=== PATIENT | female | born 1950 | race Caucasian/White ===

== ENCOUNTER → 2019-02-12 11:31 | Day surgery (SDC) | payer MEDICARE, MEDICAID, SELFPAY ==
[2019-02-11 16:48] VITALS: BMI 42.3
--- NOTE | 2019-02-12 | ECHO_ITS ---
Patient Info Name: Jaimie Nix Age: 68 years : 1950 Gender: Female Ht: 67 in Wt: 266 lbs BSA: 2.45 m2 HR: 71 bpm BP: 96 / 61 mmHg Technical Quality: Good Exam Date: 02/12/2019 7:23 AM Exam Location: [facility] Pulmonary Patient Status: Outpatient Admit Date: 02/12/2019 Staff Ordering Physician: Krystal Aden MD Clerical And Office Support Workers: Cy Scott, NELSON, RT Attending Provider: Krystal Aden MD Referring Physician: Keiko GIRON; Exam Type: CA echo doppler color flow Study Info Indications C79.89 - Secondary malignant neoplasm of other specified sites Complete two-dimensional, color flow and Doppler transthoracic echocardiogram is performed. Summary 1. Left ventricular chamber dimension is normal. 2. Left ventricular systolic function is normal, estimated at 65-70%. 3. There is moderately increased left ventricular wall thickness. 4. The left ventricular diastolic function is grade I diastolic dysfunction. 5. E/e' 9 is minimally elevated. 6. Global longitudinal strain is abnormal at -12.9%. 7. There is mild aortic valve sclerosis. 8. There is trace tricuspid valve regurgitation. Left Ventricle E/e' 9 is minimally elevated. Global longitudinal strain is abnormal at -12.9%. Left ventricular chamber dimension is normal. Left ventricular systolic function is normal, estimated at 65-70%. There is moderately increased left ventricular wall thickness. The left ventricular diastolic function is grade I diastolic dysfunction. Right Ventricle Right ventricular chamber dimension is normal. Right ventricular systolic function is normal. Left Atria Left atrial chamber dimension is normal. Right Atria Right atrial chamber dimension is normal. Aortic Valve The aortic valve is trileaflet. There is mild aortic valve sclerosis. There is no aortic valve stenosis. There is no aortic valve regurgitation. Pulmonic Valve There is no pulmonic regurgitation. Mitral Valve There is no mitral valve stenosis. There is no mitral valve regurgitation. Tricuspid Valve There is trace tricuspid valve regurgitation. RVSP is not calculated due to an inadequate TR jet. Pericardium/Pleural There is no pericardial effusion. Inferior Vena Cava Normal inferior vena cava with >50% collapse upon inspiration consistent with normal right atrial pressure, 5 mmHg. Aorta The aortic root size at the sinus of Valsalva is normal. Left Ventricular Outflow Tract Name Value Normal LVOT 2D LVOT Diameter 2.0 cm LVOT Doppler LVOT Peak Gradient 7 mmHg LVOT Mean Gradient 3 mmHg LVOT VTI 24 cm LVOT VTI/AV VTI Ratio 0.7 LVOT Stroke Volume 75 ml LVOT CO 5.9 l/min LVOT CI 2.4 l/min/m2 Pulmonic Valve Name Value Normal
--- NOTE | ~2019-02-12 | XR_ITS ---
EXAMINATION: BONE SURVEY/METASTATIC SURVEY DATE: 02/12/2019 INDICATION: Free monoclonal-like change TECHNIQUE: A skeletal survey was performed including AP views of the chest, abdomen and pelvis; AP an d lateral/lateral swimmers views of the cervical, thoracic and lumbar spine; lateral view of the skul l, and AP and lateral views of the appendicular skeleton excluding the hands and feet. COMPARISON: None. FINDINGS: No suspicious lytic or blastic bone lesions in the axial or appendicular skeleton. Scattered degenera tive skeletal changes including mild to moderate cervical and thoracic and severe lumbar spondylosis. Grade 1 anterolisthesis L3 on L4. L5 laminectomy and partial L4 laminectomy with bone graft material projecting over the bilateral posterior lateral views of the lower lumbar spine. Polyarticular osteo arthritis most prominent at the bilateral shoulders and radial aspect of the carpi. Bilateral total k nee arthroplasties with patellar resurfacing. Sacral nerve root stimulator with power supply projecti ng over the right buttock and lead extending the left S3 neural foramen. Cholecystectomy clips in rig ht upper quadrant and likely dropped clip in the pelvis. Visualized portions of the lungs are clear w ith no focal airspace opacities, pulmonary edema, pleural effusion or pneumothorax. No dilated bowel to suggest obstruction. IMPRESSION: 1. No suspicious lytic or blastic bone lesions identified. 2. Destructive and degenerative skeletal changes as detailed above. Reviewed, dictated and finalized at location A. S AND PARKING LOTS SWEEPER OPERATOR
--- NOTE | ~2019-02-12 | BM_ITS ---
EXAMINATION: CCL bone marrow asp w bx diag DATE: 02/12/2019 10:20 INDICATION: Abnormal labs with elevated free monoclonal light chain TECHNIQUE: A time-out was performed to verify the patient's name, date of , and procedure to b e performed. The procedure including the risks, benefits, and alternatives was discussed with the pat ient. Risks discussed included bleeding and infection. The patient understood the risks and agreed to proceed. The skin overlying the left posterior iliac spine was prepped and draped in usual sterile f ashion. Anesthetic was administered with 1% lidocaine subcutaneously. Systemic analgesia was provided with 50 mcg fentanyl IV. An 11 gauge needle was inserted into the ilium with fluoroscopic guidance. Bone marrow was aspirated. An 8 gauge needle was then inserted into the ilium with fluoroscopic harmony nce. A core bone marrow biopsy was obtained. There were no immediate complications. Fluoroscopy expos ure time was 0.1 minutes. The total number of images was 36. FINDINGS: Real-time fluoroscopy demonstrates a marker overlying the left posterior iliac spine. IMPRESSION: 1. Successful fluoro-guided bone marrow aspiration. 2. Successful fluoro-guided bone marrow core biopsy. Reviewed, dictated and finalized at location A. ACY SPECIALIST
--- NOTE | 2019-02-12 08:06 | SUR.PREOP ---
ARRIVES TO [facility] 3 VIA WC FROM CARDIOLOGY DEPARTMENT S/P ECHOCARDIOGRAM FOR SCHEDULED BONE MARROW BIOPSY AND ASPIRATION W/ DR. OLIVAS. HAS SEVERAL TESTS SCHEDULED FOR TODAY. A&OX3, DENIES CP OR SOB. ASSISTED TO BED. ORIENTED TO ROOM, ORDERS, PLAN OF CARE, PROCEDURE. IV STARTED. LABS SENT, VS OBTAINED, CONSENT SIGNED. JUDSON BARKER, AT SIDE. WILL MONITOR.
[2019-02-12 08:10] VITALS: BP 135/55; RESP 16; TEMP 36.9; O2SAT 96
[2019-02-12 08:36] LABS: Hematocrit 32.8 % (37.0-47.0); Hemoglobin 10.2 g/dL (12.0-15.0); Mean Corpuscular HGB Conc 31.1 g/dl (32-36); Mean Corpuscular Volume 86.8 fl (80-100); Mean Platelet Volume 8.9 fl (7.4-10.4); Platelet Count Result 384 k/mm3 (150-375); Red Blood Count 3.78 M/mm3 (4.2-5.4); Red Cell Distribution Width 13.7 % (11.5-14.5); White Blood Count 8.8 K/mm3 (4.5-10.0)
[2019-02-12 08:46] LABS: INR 0.9; Prothrombin Time 11.8 Seconds (11.1-14.7)
--- NOTE | 2019-02-12 10:17 | SUR.PHASEII ---
RETURNS FROM BONE MARROW BIOPSY IN OUTGOING INSPECTOR W/ DR. OLIVAS VIA STRETCHER TO [facility] 3. BEGIN PHASE II RECOVERY . ARRIVES ON BACK WITH PRESSURE DRESSING TO L. UPPER POSTERIOR HIP PUNCTURE SITE. SITE SOFT, NONTENDER, NO BLEEDING OR HEMATOMA NOTED TO SITE. VSS. REVIEWED WOUND CARE AND DRESSING CHANGE ORDERS W/ PT AND NIECE. VOICED UNDERSTANDING.
[2019-02-12 10:20] VITALS: BP 124/51; PULSE 67; RESP 16; TEMP 36.8; O2SAT 99
[2019-02-12 10:35] VITALS: BP 113/46; PULSE 65; RESP 16; O2SAT 98
[2019-02-12 10:50] VITALS: BP 128/46; PULSE 69; RESP 16; O2SAT 95
[2019-02-12 11:05] VITALS: BP 119/47; PULSE 67; RESP 16; O2SAT 95
--- NOTE | 2019-02-12 11:20 | SUR.PHASEII ---
HAS BEEN ON BEDREST W/ PRESSURE DRESSING TO BIOPSY SITE L. UPPER POSTERIOR HIP, LYING ON BACK, VSS X 1 HOUR. NO BLEEDING OR HEMATOMA NOTED TO SITE. REVIEWED DISCHARGE INSTRUCTIONS POST BONE MARROW BX AND SITE CARE W/ PT AND NIECE. BOTH VOICE UNDERSTANDING. CALLED RADIOLOGY RE: NEXT ORDER FOR XR BONE SURVEY.
--- NOTE | 2019-02-12 11:45 | SUR.PHASEII ---
DOWN VIA WC TO RADIOLOGY FOR XR BONE SURVEY. VOICES NO C/O. BIOPSY SITE L. UPPER POSTERIOR HIP CLEAR.
--- NOTE | 2019-02-12 12:15 | SUR.PHASEII ---
RETURNS FROM RADIOLOGY TO [facility] 3 VIA . NO NEW CHANGES.
--- NOTE | 2019-02-12 12:25 | SUR.PHASEII ---
DENIES PAIN AT THIS TIME. PRESSURE DRESSING TO L. UPPER OUTER HIP C/D/I. SITE SOFT, NO HEMATOMA NOTED. DRESSED FOR DISCHARGE HOME. STEADY GAIT. VOIDING WITHOUT DIFFICULTY. TAKING PO FLUIDS WELL. VOICES UNDERSTANDING OF DISCHARGE INSTRUCTIONS. DISCHARGED HOME, OUT VIA WC W/ ALL PERSONAL BELONGINGS AND DISCHARGE INSTRUCTIONS TO [facility]S WAITING [facility]. NO DISTRESS NOTED.
[2019-02-15 21:02] LABS: Albumin 24 Hr Urine 28 %; Total Protein/Creatinine Ratio 409 mg/g creat (<115)
== END ==
LOC: ANHCARD 07:01 → ANHCATHLAB 07:02 → ANHCARD 05-25 11:30 → ANHCATHLAB 08-05 14:48
PROVIDERS: Radiology Diagnostic Radiology; PCP Internal Medicine; Visit Provider Internal Medicine Hematology & Oncology
DX: M89.8X8 Other specified disorders of bone, other site (principal); I35.8 Other nonrheumatic aortic valve disorders; I50.30 Unspecified diastolic (congestive) heart failure
CPT/HCPCS: 36415; 38222; 77075; 81050; 82570; 84156; 84166; 85027; 85610; 88184; 88185; 88305; 88311; 88313; 88342; 88360; 88364; 88365; 93306; J3010

== ENCOUNTER 2019-03-25 13:56 | Outpatient (CLI) | payer MEDICARE, MEDICAID, SELFPAY ==
[2019-03-25 14:46] LABS: Basophils Percent Auto 0.2 % (0.2-1.2); Eosinophils Absolute Auto 0.1 K/mm3 (0-0.3); Eosinophils Percent Auto 1.7 % (0-4.4); Hematocrit 31.1 % (37.0-47.0); Hemoglobin 9.6 g/dL (12.0-15.0); Immature Granulocyte Absolute 0.06 K/mm3 (0.00-0.031); Lymphocytes Absolute Auto 1.05 K/mm3 (0.9-3.2); Lymphocytes Percent Auto 17.9 % (18.3-44.2); Mean Corpuscular HGB Conc 30.9 g/dl (32-36); Mean Corpuscular Hemoglobin 25.9 pg (26-34); Mean Corpuscular Volume 84.1 fl (80-100); Mean Platelet Volume 8.8 fl (7.4-10.4); Monocytes Absolute Auto 0.3 K/mm3 (0.1-0.6); Monocytes Percent Auto 4.3 % (2.6-8.5); Neutrophils Absolute Auto 4.4 K/mm3 (1.3-6.7); Neutrophils Percent Auto 74.9 % (45.5-73.1); Platelet Count Result 371 k/mm3 (150-375); Red Cell Distribution Width 13.3 % (11.5-14.5); White Blood Count 5.9 K/mm3 (4.5-10.0)
[2019-03-25 14:58] LABS: Alanine Aminotransferase 19 U/L (4-35); Albumin Level 4.1 g/dL (3.5-5.1); Alkaline Phosphatase 74 U/L (38-126); Aspartate Amino Transferase 17 U/L (14-36); Bilirubin,Total 0.4 mg/dL (0.2-1.3); Blood Urea Nitrogen 23 mg/dL (7-17); Calcium 9.8 mg/dL (8.4-10.2); Carbon Dioxide 25 mmol/L (22-30); Chloride 97 mmol/L (98-107); Estimated Glomerular Filt Rate 37; Glucose 204 mg/dL (65-105); Potassium 4.6 mmol/L (3.4-5.0); Sodium 140 mmol/L (137-145)
[2019-03-25 15:05] LABS: Immunoglobulin A 44 mg/dL (70-400); Immunoglobulin G 437 mg/dL (700-1600)
[2019-03-25 15:09] LABS: Immunoglobulin M < 25 mg/dL (40-230)
[2019-03-29 05:26] LABS: Albumin 3.7 g/dL (3.8-4.8); Alpha 1 Globulin 0.3 g/dL (0.2-0.3); Alpha 2 Globulin 0.8 g/dL (0.5-0.9); Beta 1 Globulin 0.6 g/dL (0.4-0.6); Gamma Globulin 0.4 g/dL (0.8-1.7); Interpretation Consistent with; Protein, Total 6.1 g/dL (6.1-8.1)
[2019-03-30 00:01] LABS: Kappa\\Lambda Light Chains 0.01 (0.26-1.65); Lambda Light Chain 1066.8 mg/L (5.7-26.3)
== END 2019-03-25 13:57 | disposition home or self-care (01) ==
PROVIDERS: PCP Internal Medicine; Visit Provider Internal Medicine Hematology & Oncology
DX: C90.00 Multiple myeloma not having achieved remission (principal)
CPT/HCPCS: 36415; 80053; 82784; 83883; 84155; 84165; 85025; 86334

== ENCOUNTER 2019-12-08 21:18 | Observation (INO) | payer MEDICARE, MEDICAID, SELFPAY ==
--- NOTE | ~2019-12-08 | CT_ITS ---
EXAMINATION: CT BRAIN W/O DATE: 12/08/2019 21:55 INDICATION: Weakness TECHNIQUE: Computed tomography (CT) of the head was performed without intravenous contrast. The dose- length product was 681.00 mGy-cm. The mA was adjusted according to patient size. Iterative reconstruc tion technique was employed. COMPARISON: No prior studies for comparison. FINDINGS: Normal brain parenchymal volume for age. Normal snell-white differentiation. No acute intrac ranial hemorrhage, infarction, mass or mass effect. There are scattered mild periventricular and subc ortical white matter changes, most likely related to small vessel ischemic disease (microangiopathy). No ventriculomegaly or midline shift. Midline sagittal images demonstrate a normal corpus callosum, c raniovertebral junction and sella turcica. Basilar cisterns are patent. Paranasal sinuses and mastoids are pneumatized. No depressed skull fractures. IMPRESSION: 1. No acute intracranial abnormality. Reviewed, dictated and finalized at location A.
--- NOTE | ~2019-12-08 | XR_ITS ---
EXAMINATION: XR chest 1V portable DATE: 12/10/2019 13:27 INDICATION: Chest pain and nausea TECHNIQUE: frontal view of the chest was obtained. COMPARISON: Chest radiograph dated 12/08/2019 FINDINGS: The lungs remain clear with no focal airspace opacities, pulmonary edema, pleural effusion or pneumot horax. The cardiomediastinal silhouette is normal. Moderate degenerative skeletal changes in the spin e and bilateral shoulders. IMPRESSION: 1. No acute cardiopulmonary disease. Reviewed, dictated and finalized at location B.
--- NOTE | ~2019-12-08 | CT_ITS ---
EXAMINATION: CT abdomen pelvis wo con DATE: 12/08/2019 23:40 INDICATION: Left flank pain and weakness TECHNIQUE: Computed tomography (CT) of the abdomen and pelvis was performed without intravenous contr ast. The dose-length product was 1490.05 mGy-cm. Automated exposure control and iterative reconstruct ion technique were employed. COMPARISON: 03/04/2019 FINDINGS: There is dependent atelectasis. Cardiomegaly. No significant pleural or pericardial effusio n. There are cholecystectomy clips. Calcified upper abdominal lymph node consistent with chronic granulo matous disease. The liver, spleen, pancreas, adrenal glands and kidneys are unremarkable. No renal/ur eteral stones. Small fat-containing umbilical hernia. No abnormal pelvic masses or fluid collections. Normal appendix. No evidence for diverticulitis. There is neural stimulator lead in the left pelvis with generator in the right gluteal soft tissues. Moderate-severe lumbar spondylosis. No free air or free fluid. No significant vascular abnormality. No lymphadenopathy. Small fat-containing umbilical h ernia. IMPRESSION: 1. No acute abdominal abnormality. Reviewed, dictated and finalized at location A.
--- NOTE | ~2019-12-08 | US_ITS ---
EXAMINATION: US renal BI DATE: 12/09/2019 13:57 INDICATION: Left flank pain. TECHNIQUE: Multiple ultrasound grayscale images of the kidneys were obtained. COMPARISON: CT abdomen and pelvis 12/08/2019 FINDINGS: The right kidney measures 11.9 x 5.8 x 5.5 cm. The left kidney measures 10.5 x 5.3 x 5.4 cm. The kidn eys demonstrate normal parenchymal echogenicity. There is no hydronephrosis. The bladder is normal. IMPRESSION: 1. Normal kidneys. No hydronephrosis. Reviewed, dictated and finalized at location A.
--- NOTE | ~2019-12-08 | XR_ITS ---
EXAMINATION: XR chest 2V 12/08/2019 22:04 INDICATION: Weakness. Dyspnea. PROCEDURE: 2 view chest COMPARISON: 07/03/2013 FINDINGS: The lungs are clear. The cardiomediastinal silhouette is within normal limits. There are no pleural effusions. There is no pneumothorax suspected. IMPRESSION: 1: NO ACUTE CARDIOPULMONARY DISEASE. Reviewed, dictated and finalized at location A.
[2019-12-08 21:21] VITALS: BP 142/90; PULSE 56; RESP 20; TEMP 36.3; O2SAT 100
--- NOTE | 2019-12-08 21:24 | ED.WEAKNESS ---
HPI - Weakness General Chief complaint: Weakness Stated complaint: n/v/ post chemo Time Seen by Provider: 12/08/19 21:24 Source: patient Mode of arrival: ambulatory Limitations: no limitations History of Present Illness HPI Narrative: Patient is a 69-year-old female with a history of multiple myeloma, anemia of chronic disease, hypertension, type 2 diabetes, who presents for evaluation of weakness. Patient states that she has been incredibly weak since Friday when she finished her last dose of chemotherapy for the multiple myeloma. Patient has been following with Dr. Finch. Patient reports mostly weakness in her lower extremities. She reports nausea without vomiting and decreased oral intake. Patient reports some left flank pain that radiates to her left buttocks. She denies any chest pain, cough or fever. No shortness of breath. Patient states that she lives at home, has been worried about her strength and lack of ability to walk on her own without falling. Patient states that she was hospitalized at [facility] Friday through today, and was discharged several hours ago. She states that she did not feel well enough to be discharged, when she spoke with Dr. Finch, he prompted her to come to our emergency department. Of note, patient states she received fluids, IV antibiotics and 2 blood transfusions while at [place]. Related Data Home Medications Medication Instructions Recorded Confirmed aspirin 325 mg PO DAILY 02/12/19 11/23/19 carvedilol [Coreg] 12.5 mg PO Q12H 02/12/19 11/23/19 cetirizine [Zyrtec] 10 mg PO DAILY 02/12/19 11/23/19 cholecalciferol (vitamin D3) 50,000 unit PO WEEKLY 02/12/19 11/23/19 cyanocobalamin (vitamin B-12) 1,000 mcg SUBCUT MONTHLY 02/12/19 11/23/19 diltiazem HCl 120 mg PO Q12H 02/12/19 11/23/19 folic acid 1 mg PO DAILY 02/12/19 11/23/19 furosemide 40 mg PO DAILY 02/12/19 11/23/19 gabapentin 300 mg PO TID 02/12/19 11/23/19 insulin degludec [Tresiba U-100 68 unit SUBCUT HS 02/12/19 11/23/19 Insulin] isosorbide mononitrate 30 mg PO DAILY 02/12/19 11/23/19 losartan 50 mg PO DAILY 02/12/19 11/23/19 magnesium oxide 400 mg PO BID 02/12/19 11/23/19 montelukast [Singulair] 10 mg PO QPM 02/12/19 11/23/19 oxybutynin chloride 10 mg PO DAILY 02/12/19 11/23/19 pantoprazole 40 mg PO QAM 02/12/19 11/23/19 pregabalin [Lyrica] 25 mg PO HS 02/12/19 11/23/19 sucralfate 1 g PO QID 02/12/19 11/23/19 ferrous sulfate 325 mg PO BID 08/03/19 11/23/19 primidone 100 mg PO HS 08/17/19 11/23/19 lenalidomide [Revlimid] 15 mg PO DAILY 11/23/19 11/23/19 Allergies Allergy/AdvReac Type Severity Reaction Status Date / Time celecoxib Allergy Intermediate TACHYCARDIA Verified 10/12/19 14:20 aspirin Allergy Unknown Verified 10/12/19 14:20 ibuprofen Allergy Unknown Verified 10/12/19 14:20 iodine Allergy Unknown Verified 10/12/19 14:20 midazolam Allergy Unknown Verified 10/12/19 14:20 Penicillins Allergy Unknown Verified 10/12/19 14:20 Contrast Media Allergy Intermediate Hives / Uncoded 10/12/19 14:20 Red Face MIDAZOLAM HCL Allergy Unknown AMNESIA Uncoded 10/12/19 14:20 AFTER SURGERY Review of Systems Review of Systems: Narrative: CONSTITUTIONAL: Denies fever, chills, or sweats. EYES: Denies visual changes ENT: Denies rhinorrhea, congestion, sore throat, or otalgia. CARDIOVASCULAR: Denies chest pain, palpitations, or edema. RESPIRATORY: Denies cough or dyspnea. GASTROINTESTINAL: Denies abdominal pain, reports nausea GENITOURINARY: Denies dysuria or hematuria. SKIN: Denies rash or itching. MUSCULOSKELETAL: Denies back pain, joint pain, or myalgia. NEUROLOGIC: Denies headache, numbness, reports lower extremity weakness PMFSH Past Medical History Medical History (Updated 12/08/19 @ 22:56 by Inge Brand MD) Anemia Diabetes Light chain myeloma Family History Family History (Updated 05/17/16 @ 23:56 by DOCTOR UNKNOWN) Mother Hypertension, Onset Age: 86 Family history of elevated
--- NOTE | 2019-12-08 21:25 | ECG_ITS ---
Measurements Intervals [facility] Rate: 56 P: 41 MN: 150 QRS: -67 QRSD: 150 T: 24 QT: 461 QTc: 448 Interpretive Statements SINUS BRADYCARDIA RIGHT BUNDLE BRANCH BLOCK LEFT ANTERIOR FASCICULAR BLOCK BASELINE ARTIFACT- I, II, III, AVR, AVL, AVF, V4-V6 ABNORMAL ECG Electronically Signed On 12-09-2019 7:06:59 CDT by Carlos Bolden D.O.
[2019-12-08 22:37] LABS: Basophils Percent Auto 0.3 % (0.2-1.2); Eosinophils Absolute Auto 0.4 K/mm3 (0-0.3); Eosinophils Percent Auto 13.6 % (0-4.4); Hemoglobin 9.3 g/dL (12.0-15.0); Immature Granulocyte Absolute 0.01 K/mm3 (0.00-0.031); Immature Granulocyte Percent A 0.3 % (0-0.5); Lymphocytes Absolute Auto 0.72 K/mm3 (0.9-3.2); Lymphocytes Percent Auto 24.5 % (18.3-44.2); Mean Corpuscular Hemoglobin 26.5 pg (26-34); Mean Corpuscular Volume 85.5 fl (80-100); Mean Platelet Volume 11.7 fl (7.4-10.4); Monocytes Absolute Auto 0.2 K/mm3 (0.1-0.6); Monocytes Percent Auto 5.1 % (2.6-8.5); Neutrophils Absolute Auto 1.7 K/mm3 (1.3-6.7); Neutrophils Percent Auto 56.2 % (45.5-73.1); Platelet Count Result 125 k/mm3 (150-375); Red Blood Count 3.51 M/mm3 (4.2-5.4); Red Cell Distribution Width 15.1 % (11.5-14.5); White Blood Count 2.9 K/mm3 (4.5-10.0)
[2019-12-08 22:46] LABS: INR 1.1; Prothrombin Time 14.1 Seconds (11.1-14.7)
[2019-12-08 22:47] LABS: Partial Thromboplastin Time 31.3 SECONDS (22.3-36.8)
[2019-12-08 22:48] LABS: Alanine Aminotransferase 10 U/L (4-35); Albumin Level 3.4 g/dL (3.5-5.1); Alkaline Phosphatase 93 U/L (38-126); Anion Gap 7 mmol/L (8-16); Aspartate Amino Transferase 12 U/L (14-36); Bilirubin,Total 0.6 mg/dL (0.2-1.3); Blood Urea Nitrogen 26 mg/dL (7-17); Calcium 9.2 mg/dL (8.4-10.2); Carbon Dioxide 26 mmol/L (22-30); Chloride 103 mmol/L (98-107); Estimated CRCL calculation 45 ml/min; Estimated Glomerular Filt Rate 37; Glucose 146 mg/dL (65-105); Potassium 4.1 mmol/L (3.4-5.0); Sodium 136 mmol/L (137-145)
[2019-12-08 22:49] LABS: Lactic Acid Reflex 0.7 mmol/L (0.7-2.1)
[2019-12-08] MEDS: ONDANSETRON INJ 4 MG/2 ML VIAL IV PUSH (22:59)
[2019-12-08 23:00] LABS: Troponin I 0.016 ng/mL (0.000-0.034)
[2019-12-08] MEDS: MORPHINE SULFATE (*CRX) 4 MG/ML INJ IV PUSH (23:01)
[2019-12-08] MEDS: SODIUM CHLORIDE 0.9% IV 1,000 ML 999 ML IV CONT (23:05)
[2019-12-09] VITALS (11 sets, daily range): BP systolic 130–149; BP diastolic 46–70; PULSE 50–61; RESP 18–22; TEMP 36.1–36.4; O2SAT 95–99; BMI 42.7
[2019-12-09 00:26] LABS: Add Urine Microscopic? YES; Appearance Urine Clear (Clear); Bacteria Urine Trace /hpf; Bilirubin Urine Negative (Negative); Blood Urine 1+ (Negative); Color Urine Straw (Yellow); Glucose Urine UA Negative (Negative); Ketones Urine Negative (Negative); Leukocyte Esterase Ur Trace LEU/UL (Negative); Nitrate Urine Negative (Negative); Protein Urine Negative (Negative); RBC Urine 0-2 /hpf (0-2); Specific Grav Ur 1.009 (1.001-1.035); Squamous Epithelial Cell Urine Few /hpf (Few); Urobilinogen Urine Negative mg/dL (<2.0)
--- NOTE | 2019-12-09 01:15 | PM.IMHP ---
H&P: HPI History of Present Illness Date/Time: 12/09/19 01:15 Chief complaint: Weakness, dehydration Narrative: This is a 69 year old Diabetic female with known history of multiple myeloma and HTN who was just discharged from [facility] a few hours ago after she was treated for colitis and presented to our hospital with a complaint of generalized weakness. The patient has had increased nausea, vomiting, and generalized weakness since her last round of chemotherapy last week. She has also had diarrhea. She denies any fever, chills, chest pain, cough, shortness of breath, or dysuria. While at [facility] she was treated with antibiotics and today she verbalized that she felt too weak to be discharged as she is known to live alone but she was discharged home anyway. She received 2 blood transfusions at [facility]. She called her Oncologist, Dr. Finch who told her to come to the hospital for evaluation. She was found to be mildly dehydrated tonight in the ER. Routine labs appear to be improved from when she was at [facility]. Repeat CT abd/pelvis was unremarkable. On my encounter with the patient she is still complaining of nausea and ongoing LLQ abdominal pain which she has had for the past 5 days. The patient verbalized that she does not think she can care for herself at home. No other complaints tonight. Review of Systems Review of Systems: All systems reviewed & are unremarkable except as noted in HPI and below PMFSH Past Medical History Medical History Anemia Diabetes Light chain myeloma Family History Family History Mother Hypertension, Onset Age: 86 Family history of elevated blood lipids, Onset Age: 86 Patient's mother is Grandparent Cerebrovascular accident, Onset Age: 76 Diabetes mellitus, Onset Age: 84 Father Family history of coronary artery disease, Onset Age: 49 Patient's father is Social History Social History Smoking status: Never smoker Alcohol intake: never Substance use: never Gender identity (if verbalized by the patient): Female Spiritual care concerns: No Comments Past surgical history is reviewed and noncontributory. Meds Home Medications and Allergies Home Medications Medication Instructions Recorded Confirmed Type aspirin 325 mg PO DAILY 02/12/19 12/09/19 History cholecalciferol (vitamin D3) 50,000 unit PO WEEKLY 02/12/19 12/09/19 History cyanocobalamin (vitamin B-12) 1,000 mcg SUBCUT MONTHLY 02/12/19 12/09/19 History diltiazem HCl 120 mg PO DAILY 02/12/19 12/09/19 History folic acid 1 mg PO DAILY 02/12/19 12/09/19 History isosorbide mononitrate 30 mg PO DAILY 02/12/19 12/09/19 History losartan 50 mg PO DAILY 02/12/19 12/09/19 History magnesium oxide 400 mg PO BID 02/12/19 12/09/19 History oxybutynin chloride 10 mg PO DAILY 02/12/19 12/09/19 History pantoprazole 40 mg PO QAM 02/12/19 12/09/19 History pregabalin [Lyrica] 50 mg PO HS 02/12/19 12/09/19 History ferrous sulfate 325 mg PO BID 08/03/19 12/09/19 History primidone 50 mg PO BID 08/17/19 12/09/19 History albuterol sulfate [ProAir HFA] 2 puff INHALATION Q4H PRN 12/09/19 12/09/19 History chlorthalidone 25 mg PO DAILY 12/09/19 12/09/19 History sertraline [Zoloft] 50 mg PO DAILY 12/09/19 12/09/19 History Tresiba U-100 Insulin 80 unit SUBCUT HS #0 ml 12/11/19 12/09/19 Rx carvedilol 12.5 mg PO Q12H #60 tablet 12/11/19 Rx promethazine 25 mg PO TID PRN #30 tablet 12/11/19 Rx Allergies Allergy/AdvReac Type Severity Reaction Status Date / Time celecoxib Allergy Intermediate TACHYCARDIA Verified 12/09/19 02:10 ibuprofen Allergy Unknown Other Verified 12/09/19 02:10 iodine Allergy Unknown Other Verified 12/09/19 02:10 midazolam Allergy Unknown Other Verified 12/09/19 02:10 Penicillins Allergy Unknown Other
--- NOTE | 2019-12-09 01:40 | ADMGEN ---
This patient, Jaimie Nix, was admitted to 2 Medical Room 251-01. Patient/family oriented to hospital policies and general routines including ID bracelet, bed and alarms, visiting hours, pain management, procedures, bathroom and other care routines, personal items, smoking policy, room service/diet, and visiting hours. Information on how to activate the Rapid Response Team has been discussed. Patient/Family are encouraged to report perceived risks to care and to ask questions if they do not understand what they are told or what they should do.
[2019-12-09] MEDS: SODIUM CHLORIDE 0.9% IV 1,000 ML 100 ML IV CONT ×3 (02:28→22:05)
[2019-12-09 04:36] LABS: Glucose Point of Care 112 (65-105)
[2019-12-09 06:08] LABS: Basophils Percent Auto 0.4 % (0.2-1.2); Eosinophils Absolute Auto 0.4 K/mm3 (0-0.3); Eosinophils Percent Auto 17.1 % (0-4.4); Hematocrit 28.7 % (37.0-47.0); Hemoglobin 8.9 g/dL (12.0-15.0); Immature Granulocyte Absolute 0.01 K/mm3 (0.00-0.031); Immature Granulocyte Percent A 0.4 % (0-0.5); Lymphocytes Absolute Auto 0.67 K/mm3 (0.9-3.2); Lymphocytes Percent Auto 29.4 % (18.3-44.2); Mean Corpuscular Hemoglobin 26.6 pg (26-34); Mean Corpuscular Volume 85.9 fl (80-100); Mean Platelet Volume 11.3 fl (7.4-10.4); Monocytes Absolute Auto 0.2 K/mm3 (0.1-0.6); Monocytes Percent Auto 8.8 % (2.6-8.5); Neutrophils Percent Auto 43.9 % (45.5-73.1); Platelet Count Result 104 k/mm3 (150-375); Red Blood Count 3.34 M/mm3 (4.2-5.4); Red Cell Distribution Width 15.2 % (11.5-14.5); White Blood Count 2.3 K/mm3 (4.5-10.0)
[2019-12-09 06:13] LABS: Anion Gap 7 mmol/L (8-16); Blood Urea Nitrogen 21 mg/dL (7-17); Calcium 8.8 mg/dL (8.4-10.2); Carbon Dioxide 25 mmol/L (22-30); Chloride 106 mmol/L (98-107); Estimated CRCL calculation 47 ml/min; Estimated Glomerular Filt Rate 40; Glucose 116 mg/dL (65-105); Potassium 3.8 mmol/L (3.4-5.0); Sodium 138 mmol/L (137-145)
[2019-12-09 06:51] LABS: Glucose Point of Care 112 (65-105)
[2019-12-09 07:45] LABS: Glucose Point of Care 109 (65-105)
[2019-12-09 09:58] LABS: CRP 3.1 mg/dL (<1.0)
[2019-12-09] MEDS: ACETAMINOPHEN 325 MG TABLET 650 MG PO (11:10)
[2019-12-09 11:26] LABS: Glucose Point of Care 130 (65-105)
[2019-12-09] MEDS: ONDANSETRON INJ 4 MG/2 ML VIAL IV PUSH ×3 (12:53→20:13)
--- NOTE | 2019-12-09 13:14 | PM.IMPN ---
Progress Note: A&P Assessment and Plan (1) Nausea and vomiting: Qualifiers: Vomiting type: unspecified Vomiting Intractability: non-intractable Qualified Code(s): R11.2 - Nausea with vomiting, unspecified Code(s): R11.2 - Nausea with vomiting, unspecified Status: Acute Assessment and Plan: ------Likely related to chemotherapy vs. recent colitis. Patient is now tolerating a diet and feeling better. No CT evidence of pathology (2) Weakness: Code(s): R53.1 - Weakness Status: Acute Assessment and Plan: -----Secondary to deconditioning and chronic illness. 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 Patient agrees (3) Dehydration: Code(s): E86.0 - Dehydration Status: Acute Assessment and Plan: -------Continue IV hydration overnight. The patient is dizzy upon standing and still feels weak. I will keep her another night for IV fluids and check orthostatics. She does not feel safe going home today (4) Pancytopenia: Code(s): D61.818 - Other pancytopenia Status: Acute Assessment and Plan: -----Likely chemotherapy induced. Monitor blood counts, transfuse prn. (5) Light chain myeloma: Code(s): C90.00 - Multiple myeloma not having achieved remission Status: Chronic Assessment and Plan: -----follows with Dr. Finch, he is consulted. 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 (7) Chronic renal failure: Qualifiers: Chronic kidney disease stage: stage 3 (moderate) Chronic kidney disease stage 3 subtype: unspecified whether 3a or 3b Qualified Code(s): N18.30 - Chronic kidney disease, stage 3 unspecified Code(s): N18.9 - Chronic kidney disease, unspecified Status: Chronic Assessment and Plan: -------Cr appears to be at baseline. She still has pain in her left flank although the CT is negative, will get an ultrasound of the kidneys. She had a recent biopsy 6 weeks ago. I have offered her a lidocaine patch and [place] Additional Plan Likely discharge tomorrow to home health Time Spent With Patient Time with patient: 25 - 35 minutes Subjective Date/time seen: 12/09/19 13:14 Interval history: Pt is a 69 year old female here for weakness. Patient was seen today and states she is feeling little stronger but was lightheaded when she stood up. She said this is not like her and she usually does not have any lightheadedness. Her lightheadedness improved with sitting back down. She still complains of left flank pain and states she does not think it is muscular and it is more internal. She had a recent kidney biopsy 6 weeks ago. Her last bowel movement was yesterday. Pt denies nausea, vomiting, fevers, chills, constipation, diarrhea, chest pain, sob, or abdominal pain. Review of Systems Review of Systems: All systems reviewed & are unremarkable except as noted in HPI and below Exam Narrative: Exam Narrative: General: Overweight patient resting comfortably on the commode in no acute distress HEENT: normocephalic Neck: supple Neuro: Alert and oriented x4 CV:RRR Resp:CTA bacK: No reproducible muscle pain or flank ecchymosis Abd: Soft, non distended. No pain to palpation. Positive bowel sounds Extremities: No swelling, erythema, or pain to palpation. Objective Data Vital Signs Vital Signs: Vital Signs - 24 hr 12/08/19 21:21 12/09/19 01:44 12/09/19 01:
--- NOTE | 2019-12-09 13:30 | PC.NURSE ---
pt to US via stretcher
[2019-12-09 16:35] LABS: Glucose Point of Care 117 (65-105)
--- NOTE | 2019-12-09 17:22 | PDONCCN ---
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 Patient started Revlimid 15 mg daily 3 weeks on and 1 week off on November 16, 2019. She is also getting Procrit 98749 units on a biweekly basis for anemia of chronic kidney disease. She completed her 1st cycle of Revlimid treatment on December 06, 2019. She started having nausea without vomiting along with diarrhea and left lower quadrant and flank pain. She denies any fevers and chills. She was treated for colitis at [facility] and was discharged prior to admission to [facility] with generalize weakness nausea and abdominal and back pain. CT scan of abdomen and pelvis showed no acute abdominal abnormalities. Labs showed pancytopenia with WBC count of 2.3, hemoglobin 8.9 and platelet [id number]. She still has some nausea but slightly better. No other new complaints. Review of Systems - Review of Systems All systems reviewed & are unremarkable except as noted in HPI and [facility] Medical History: Medical History (Last Reviewed 12/09/19 @ 02:35 by Grey House MD) Anemia Diabetes Light chain myeloma Family History: Family History (Last Reviewed 12/09/19 @ 02:35 by Grey House MD) Mother Hypertension, Onset Age: 86 Family history of elevated blood lipids, Onset Age: 86 Patient's mother is Grandparent Cerebrovascular accident, Onset Age: 76 Diabetes mellitus, Onset Age: 84 Father Family history of coronary artery disease, Onset Age: 49 Patient's father is - Social History Social History: Social History (Last Reviewed 12/09/19 @ 02:35 by Grey House MD) Gender Identity: Gender identity (if verbalized by the patient): Female Alcohol Use: Alcohol intake: never Substance Use: Substance use: never Others: Spiritual care concerns: No Smoking Status: Smoking status: Never smoker Meds Home Medications Medication Instructions Recorded Confirmed Type aspirin 325 mg PO DAILY 02/12/19 12/09/19 History carvedilol [Coreg] 25 mg PO Q12H 02/12/19 12/09/19 History cholecalciferol (vitamin D3) 50,000 unit PO WEEKLY 02/12/19 12/09/19 History cyanocobalamin (vitamin B-12) 1,000 mcg SUBCUT MONTHLY 02/12/19 12/09/19 History diltiazem HCl 120 mg PO DAILY 02/12/19 12/09/19 History folic acid 1 mg PO DAILY 02/12/19 12/09/19 History insulin degludec [Tresiba U-100 94 unit SUBCUT HS 02/12/19 12/09/19 History Insulin] isosorbide mononitrate 30 mg PO DAILY 02/12/19 12/09/19 History losartan 50 mg PO DAILY 02/12/19 12/09/19 History magnesium oxide 400 mg PO BID 02/12/19 12/09/19 History oxybutynin chloride 10 mg PO DAILY 02/12/19 12/09/19 History pantoprazole 40 mg PO QAM 02/12/19 12/09/19 History pregabalin [Lyrica] 50 mg PO HS 02/12/19 12/09/19 History ferrous sulfate 325 mg PO BID 08/03/19 12/09/19 History primidone 50 mg PO BID 08/17/19 12/09/19 History albuterol sulfate [ProAir HFA] 2 puff INHALATION Q4H PRN 12/09/19 12/09/19 History chlorthalidone 25 mg PO DAILY 12/09/19 12/09/19 History ondansetron 4 mg PO Q8H 12/09/19 12/09/19 History sertraline [Zoloft] 50 mg PO DAILY 12/09/19 12/09/19 History Allergies Allergy/AdvReac Type Severity Reaction Status Date / Time celecoxib Allergy Intermediate TACHYCARDIA Verified 12/09/19 02:10 ibuprofen Allergy Unknown Other Verified 12/09/19 02:10 iodine Allergy Unknown Other Verified 12/09/19 02:10 midazolam Allergy Unknown Other Verified 12/09/19 02:10 Penicillins Allergy Unknown Other Verified 12/09/19 02:10 Contrast Media Allergy Interm
[2019-12-09 21:04] LABS: Glucose Point of Care 144 (65-105)
[2019-12-09] MEDS: DEXAMETHASONE SOD PHOS INJ 4 MG/ML VIAL IV PUSH (22:05)
[2019-12-10] VITALS (11 sets, daily range): BP systolic 159–185; BP diastolic 69–91; PULSE 51–81; RESP 18–20; TEMP 36.3–36.7; O2SAT 96–99
[2019-12-10] MEDS: HYDROcodone/acetaminophen (*CRX) 5-325 MG TABLET 1 TAB PO (04:27)
[2019-12-10] MEDS: ONDANSETRON INJ 4 MG/2 ML VIAL IV PUSH ×3 (04:27→12:58)
[2019-12-10] MEDS: DEXAMETHASONE SOD PHOS INJ 4 MG/ML VIAL IV PUSH ×3 (05:23→20:38)
[2019-12-10 05:51] LABS: Anion Gap 6 mmol/L (8-16); Blood Urea Nitrogen 17 mg/dL (7-17); Calcium 8.8 mg/dL (8.4-10.2); Carbon Dioxide 25 mmol/L (22-30); Chloride 107 mmol/L (98-107); Estimated CRCL calculation 51 ml/min; Estimated Glomerular Filt Rate 44; Glucose 168 mg/dL (65-105); Hematocrit 29.6 % (37.0-47.0); Hemoglobin 9.1 g/dL (12.0-15.0); Immature Granulocyte Absolute 0.01 K/mm3 (0.00-0.031); Immature Granulocyte Percent A 0.5 % (0-0.5); Lymphocytes Absolute Auto 0.48 K/mm3 (0.9-3.2); Mean Corpuscular HGB Conc 30.7 g/dl (32-36); Mean Corpuscular Hemoglobin 26.5 pg (26-34); Mean Corpuscular Volume 86.3 fl (80-100); Monocytes Absolute Auto 0.1 K/mm3 (0.1-0.6); Monocytes Percent Auto 6.5 % (2.6-8.5); Neutrophils Absolute Auto 1.3 K/mm3 (1.3-6.7); Platelet Count Result 106 k/mm3 (150-375); Potassium 4.3 mmol/L (3.4-5.0); Red Blood Count 3.43 M/mm3 (4.2-5.4); Sodium 138 mmol/L (137-145)
[2019-12-10 08:00] LABS: Glucose Point of Care 154 (65-105)
[2019-12-10] MEDS: LIDOCAINE 5% PATCH 1 PATCH TRANSDERM (09:16)
[2019-12-10 11:47] LABS: Glucose Point of Care 174 (65-105)
--- NOTE | 2019-12-10 12:39 | ECG_ITS ---
Measurements Intervals [place] Rate: 51 P: 37 CA: 135 QRS: -64 QRSD: 147 T: 15 QT: 475 QTc: 439 Interpretive Statements SINUS BRADYCARDIA RIGHT BUNDLE BRANCH BLOCK LEFT ANTERIOR FASCICULAR BLOCK ABNORMAL ECG Electronically Signed On 12-10-2019 13:43:54 CDT by Carlos Bolden D.O.
[2019-12-10] MEDS: SCOPOLAMINE 1.5 MG PATCH TRANSDERM (12:59)
[2019-12-10] MEDS: hydrALAZINE HCL 20 MG/ML VIAL 10 MG IV PUSH (13:01)
[2019-12-10 13:09] LABS: Alanine Aminotransferase 14 U/L (4-35); Albumin Level 3.3 g/dL (3.5-5.1); Alkaline Phosphatase 101 U/L (38-126); Anion Gap 7 mmol/L (8-16); Aspartate Amino Transferase 15 U/L (14-36); Bilirubin,Total 0.4 mg/dL (0.2-1.3); Blood Urea Nitrogen 18 mg/dL (7-17); Calcium 8.8 mg/dL (8.4-10.2); Carbon Dioxide 26 mmol/L (22-30); Chloride 104 mmol/L (98-107); Estimated CRCL calculation 47 ml/min; Estimated Glomerular Filt Rate 40; Glucose 212 mg/dL (65-105); Lipase 27 U/L (23-300); Potassium 4.2 mmol/L (3.4-5.0); Sodium 137 mmol/L (137-145)
[2019-12-10 13:13] LABS: Hematocrit 30.2 % (37.0-47.0); Hemoglobin 9.5 g/dL (12.0-15.0); Mean Corpuscular HGB Conc 31.5 g/dl (32-36); Mean Corpuscular Hemoglobin 26.7 pg (26-34); Mean Corpuscular Volume 84.8 fl (80-100); Mean Platelet Volume 11.1 fl (7.4-10.4); Platelet Count Result 110 k/mm3 (150-375); Red Blood Count 3.56 M/mm3 (4.2-5.4); Red Cell Distribution Width 14.8 % (11.5-14.5); White Blood Count 2.5 K/mm3 (4.5-10.0)
[2019-12-10 13:19] LABS: NT Pro B Type Natriuretic Pept 1710 PG/ML (5-100); Troponin I < 0.012 ng/mL (0.000-0.034)
[2019-12-10] MEDS: carvediloL 25 MG TABLET PO ×2 (14:10→20:39)
[2019-12-10] MEDS: FOLIC ACID 1 MG TABLET PO (14:11)
[2019-12-10] MEDS: LOSARTAN POTASSIUM 50 MG TABLET PO (14:11)
[2019-12-10] MEDS: PANTOPRAZOLE 40 MG TABLET PO (14:11)
[2019-12-10] MEDS: ASPIRIN 325 MG TABLET PO (14:11)
[2019-12-10] MEDS: PRIMIDONE 50 MG TABLET PO ×2 (14:11→20:39)
[2019-12-10] MEDS: ISOSORBIDE MONONITRATE 30 MG TAB.ER.24H PO (14:11)
[2019-12-10] MEDS: SERTRALINE HCL 50 MG TABLET PO (14:11)
[2019-12-10] MEDS: CHLORTHALIDONE 25 MG TABLET PO (14:12)
--- NOTE | 2019-12-10 15:26 | PM.IMPN ---
Progress Note: A&P Assessment and Plan (1) Hypertensive urgency: Code(s): I16.0 - Hypertensive urgency Status: Acute Assessment and Plan: -----patient started having chest pain and her vitals were checked and her blood pressure was 185/73. Since she was NPO on admission her home meds were held and not restarted. Stat EKG, chest x-ray, troponin and 10 mg of hydralazine was given. Blood pressure improved to 159/91 and her home medications were resumed. EKG shows chronic findings and no acute ischemia, chest x-ray normal, troponin x1 is normal and we will trend these. She had an echo earlier this year and I do not believe it needs to be repeated at this time unless she continues to have chest pain or her troponins elevate. Monitor on telemetry (2) Nausea and vomiting: Qualifiers: Vomiting type: unspecified Vomiting Intractability: non-intractable Qualified Code(s): R11.2 - Nausea with vomiting, unspecified Code(s): R11.2 - Nausea with vomiting, unspecified Status: Acute Assessment and Plan: ------Likely related to chemotherapy vs. recent colitis. She is better but still feels nauseous. Scopolamine patch was ordered and I transitioned her from Zofran to Phenergan to see if this helps (3) Weakness: Code(s): R53.1 - Weakness Status: Acute Assessment and Plan: -----Secondary to deconditioning and chronic illness. 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 Patient worried about going home and I explained her options. She will likely go home with physical therapy (4) Dehydration: Code(s): E86.0 - Dehydration Status: Acute Assessment and Plan: -------IV hydration has been stops and she appears euvolemic and blood pressure elevated. Dizziness has resolved (5) Pancytopenia: Code(s): D61.818 - Other pancytopenia Status: Acute Assessment and Plan: -----Likely chemotherapy induced. Monitor blood counts, transfuse prn. (6) Light chain myeloma: Code(s): C90.00 - Multiple myeloma not having achieved remission Status: Chronic Assessment and Plan: -----follows with Dr. Finch, he is consulted. (7) Diabetes: Qualifiers: Diabetes mellitus type: type 2 Diabetes mellitus terminal gauger insulin use: without group home use Diabetes mellitus complication status: without complication Qualified Code(s): E11.9 - Type 2 diabetes mellitus without complications Code(s): E11.9 - Type 2 diabetes mellitus without complications Status: Chronic Assessment and Plan: ------last glucose 212 continue Accuchecks, SSI Coverage, Hypoglycemic protocol. (8) Chronic renal failure: Qualifiers: Chronic kidney disease stage: stage 3 (moderate) Chronic kidney disease stage 3 subtype: unspecified whether 3a or 3b Qualified Code(s): N18.30 - Chronic kidney disease, stage 3 unspecified Code(s): N18.9 - Chronic kidney disease, unspecified Status: Chronic Assessment and Plan: -------Cr appears to be at baseline. Pain is improving with lidocaine patch. Ultrasound of kidneys normal. Additional Plan Likely discharge tomorrow to home health Subjective Date/time seen: 12/10/19 15:26 Interval history: Pt is a 69 year old female here for weakness. Patient was seen today earlier in the day and she was doing okay. She had some nausea but no more vomiting. Her back pain had improved. A later get a call from the nursing she has had chest pain. At the bedside the patient states she initially had stabbing chest pain but then changed to pressure-like chest pain. It does not radiate to her arm or jaw. She had no diaphoresis with this. It was not reproducible and did not become worse with deep respirations. She had no cough associated with this. She told me that she did want to go
--- NOTE | 2019-12-10 16:32 | WPDONCPN ---
Progress Note: A/P - Additional Plan Multiple myeloma status post kidney biopsy. Patient completed 1st cycle with Revlimid a day. She tolerated treatment poorly. She is already on low-dose of Revlimid due to her poor creatinine clearance. Patient will follow with us in the office to discuss further treatment options. Pancytopenia. Secondary to chemotherapy. Labs slowly improving. Chemotherapy-induced diarrhea. Patient was started on steroid with improvement in colitis. Anemia of chronic kidney disease. Patient is on Epogen on a biweekly basis in my office. Nausea vomiting. This has much improved. Patient may be able to go home today. She will follow with me next week. - Time Spent With Patient Total time spent is greater than 50% in coordination of care (as documented) at patient's floor/unit and/or counseling patient: 15 - 25 minutes Subjective Interval history: Multiple myeloma Pancytopenia secondary to chemotherapy Intractable nausea vomiting Chemotherapy-induced diarrhea Review of Systems - Review of Systems Patient remains tired and weak. Nausea has improved. She was able to eat today better. Diarrhea has resolved without any abdominal cramping. No fevers and chills. Exam Vital signs: Temp Pulse Resp BP Pulse Ox 36.7 C 72 18 159/91 H 99 12/10/19 14:00 12/10/19 14:10 12/10/19 14:00 12/10/19 14:00 12/10/19 14:00 Narrative: Lungs are clear to auscultation bilaterally Cardiovascular regular rate rhythm no murmurs Abdomen soft nontender nondistended bowel sounds are positive Extremities no edema PN: Objective Data - Labs CBC & Chem 7: 12/10/19 13:06 12/10/19 12:47 Labs: Laboratory Results - last 24 hr 12/09/19 12/09/19 12/10/19 16:16 20:10 05:03 WBC 2.0 L RBC 3.43 L Hgb 9.1 L Hct 29.6 L MCV 86.3 MCH 26.5 MCHC 30.7 L RDW 15.0 H Plt Count 106 L MPV 12.0 H Immature Gran % (Auto) 0.5 Neut % (Auto) 66.0 Lymph % (Auto) 24.0 Rowan % (Auto) 6.5 Eos % (Auto) 2.0 Baso % (Auto) 1.0 Lymph # (Auto) 0.48 L Rowan # (Auto) 0.1 Eos # (Auto) 0.0 Baso # (Auto) 0.0 Abs Immat Gran (auto) 0.01 Absolute Neuts (auto) 1.3 Absolute Nucleated RBC 0.0 Nucleated RBC % 0.0 Sodium Potassium Chloride Carbon Dioxide Anion Gap BUN Creatinine Estim Creat Clear Calc Estimated GFR Glucose POC Capillary Glucose 117 H 144 H Calcium Total Bilirubin AST ALT Alkaline Phosphatase Troponin I NT-Pro-B Natriuret Pep Total Protein Albumin Lipase 12/10/19 12/10/19 12/10/19 05:03 07:50 11:39 WBC RBC Hgb Hct MCV MCH MCHC RDW Plt Count MPV Immature Gran % (Auto) Neut % (Auto) Lymph % (Auto) Rowan % (Auto) Eos % (Auto) Baso % (Auto) Lymph # (Auto) Rowan # (Auto) Eos # (Auto) Baso # (Auto) Abs Immat Gran (auto) Absolute Neuts (auto) Absolute Nucleated RBC Nucleated RBC % Sodium 138 Potassium 4.3 Chloride 107 Carbon Dioxide 25 Anion Gap 6 L BUN 17 Creatinine 1.20 H Estim Creat Clear Calc 51 Estimated GFR 44 L Glucose 168 H POC Capillary Glucose 154 H 174 H Calcium 8.8 Total Bilirubin AST ALT Alkaline Phosphatase Troponin I NT-Pro-B Natriuret Pep Total Protein Albumin Lipase 12/10/19 12/10/19 12/10/19 12:47 12:47 13:06 WBC 2.5 L RBC 3.56 L Hgb 9.5 L Hct 30.2 L MCV 84.8 MCH 26.7 MCHC 31.5 L RDW 14.8 H Plt Count 110 L MPV 11.1 H Immature Gran % (Auto) Neut % (Auto) Lymph % (Auto) Rowan % (Auto) Eos % (Auto) Baso % (Auto) Lymph # (Auto) Rowan # (Auto) Eos # (Auto) Baso # (Auto) Abs Immat Gran (auto) Absolute Neuts (auto) Absolute Nucleated RBC Nucleated RBC % Sodium 137 Potassium 4.2 Chlori
[2019-12-10 16:40] LABS: Troponin I 0.019 ng/mL (0.000-0.034)
[2019-12-10] MEDS: PROMETHAZINE HCL 25 MG/ML AMPUL 12.5 MG IV PUSH ×2 (16:56→21:00)
[2019-12-10] MEDS: MAGNESIUM OXIDE 400 MG TABLET PO (16:57)
[2019-12-10] MEDS: FERROUS SULFATE 324 MG TABLET PO (16:57)
[2019-12-10] MEDS: INSULIN ASPART (*BKC) 100 UNITS/ML SUB-Q (16:57)
[2019-12-10 17:56] LABS: Glucose Point of Care 214 (65-105)
[2019-12-10] MEDS: PREGABALIN (*CRX) 25 MG CAPSULE 50 MG PO (20:39)
[2019-12-10 20:46] LABS: Glucose Point of Care 202 (65-105)
[2019-12-11] VITALS (9 sets, daily range): BP systolic 145–149; BP diastolic 49–82; PULSE 41–64; RESP 16–18; TEMP 36.4–36.6; O2SAT 97–99
[2019-12-11] MEDS: PROMETHAZINE HCL 25 MG/ML AMPUL 12.5 MG IV PUSH ×3 (02:32→14:00)
[2019-12-11] MEDS: DEXAMETHASONE SOD PHOS INJ 4 MG/ML VIAL IV PUSH ×2 (06:06→13:54)
[2019-12-11 07:01] LABS: Hematocrit 29.8 % (37.0-47.0); Hemoglobin 9.1 g/dL (12.0-15.0); Mean Corpuscular HGB Conc 30.5 g/dl (32-36); Mean Corpuscular Hemoglobin 26.3 pg (26-34); Mean Corpuscular Volume 86.1 fl (80-100); Mean Platelet Volume 10.8 fl (7.4-10.4); Platelet Count Result 105 k/mm3 (150-375); Red Blood Count 3.46 M/mm3 (4.2-5.4); Red Cell Distribution Width 14.9 % (11.5-14.5); White Blood Count 2.2 K/mm3 (4.5-10.0)
[2019-12-11 07:30] LABS: Anion Gap 8 mmol/L (8-16); Blood Urea Nitrogen 20 mg/dL (7-17); Calcium 9.1 mg/dL (8.4-10.2); Carbon Dioxide 28 mmol/L (22-30); Chloride 103 mmol/L (98-107); Estimated CRCL calculation 47 ml/min; Estimated Glomerular Filt Rate 40; Glucose 208 mg/dL (65-105); Potassium 4.6 mmol/L (3.4-5.0); Sodium 139 mmol/L (137-145)
[2019-12-11] MEDS: PRIMIDONE 50 MG TABLET PO (08:59)
[2019-12-11] MEDS: carvediloL 25 MG TABLET PO (08:59)
[2019-12-11] MEDS: ISOSORBIDE MONONITRATE 30 MG TAB.ER.24H PO (08:59)
[2019-12-11] MEDS: LOSARTAN POTASSIUM 50 MG TABLET PO (08:59)
[2019-12-11] MEDS: LIDOCAINE 5% PATCH 1 PATCH TRANSDERM (09:01)
[2019-12-11 09:15] LABS: Glucose Point of Care 251 (65-105)
[2019-12-11] MEDS: INSULIN ASPART (*BKC) 100 UNITS/ML SUB-Q ×3 (09:17→16:34)
[2019-12-11] MEDS: FERROUS SULFATE 324 MG TABLET PO ×2 (10:25→16:34)
[2019-12-11] MEDS: SERTRALINE HCL 50 MG TABLET PO (10:26)
[2019-12-11] MEDS: CHLORTHALIDONE 25 MG TABLET PO (10:26)
[2019-12-11] MEDS: ASPIRIN 325 MG TABLET PO (10:26)
[2019-12-11] MEDS: BISACODYL 5 MG TABLET EC PO (10:26)
[2019-12-11] MEDS: MAGNESIUM OXIDE 400 MG TABLET PO ×2 (10:26→16:34)
[2019-12-11] MEDS: PANTOPRAZOLE 40 MG TABLET PO (10:26)
[2019-12-11] MEDS: FOLIC ACID 1 MG TABLET PO (10:26)
--- NOTE | 2019-12-11 11:27 | PM.DS ---
DS: Admitting Diagnosis Admitting Diagnosis Admitting Diagnosis: Weakness, dehydration DS: Discharge Diagnosis Discharge Diagnosis (1) Hypertensive urgency: Code(s): I16.0 - Hypertensive urgency Status: Acute Assessment and Plan: -----patient started having chest pain 12/09 and her vitals were checked and her blood pressure was 185/73. Since she was NPO on admission her home meds were held and not restarted. Stat EKG, chest x-ray, troponin and 10 mg of hydralazine was given. EKG and CXR okay. BP improved and CP resolved with that. Trops negative x 3. (2) Nausea and vomiting: Qualifiers: Vomiting type: unspecified Vomiting Intractability: non-intractable Qualified Code(s): R11.2 - Nausea with vomiting, unspecified Code(s): R11.2 - Nausea with vomiting, unspecified Status: Acute Assessment and Plan: ------Likely related to chemotherapy vs. recent colitis. Patient states promethazine works better than Zofran. Patient states she cannot afford the Scopolamine patch (3) Weakness: Code(s): R53.1 - Weakness Status: Acute Assessment and Plan: -----Secondary to deconditioning and chronic illness. 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 Patient worried about going home and I explained her options. (4) Dehydration: Code(s): E86.0 - Dehydration Status: Acute Assessment and Plan: -------IV hydration has been stops and she appears euvolemic and blood pressure elevated. Dizziness has resolved (5) Pancytopenia: Code(s): D61.818 - Other pancytopenia Status: Acute Assessment and Plan: -----Likely chemotherapy induced. (6) Light chain myeloma: Code(s): C90.00 - Multiple myeloma not having achieved remission Status: Chronic Assessment and Plan: -----follows with Dr. Finch, he is consulted. (7) Diabetes: Qualifiers: Diabetes mellitus type: type 2 Diabetes mellitus rodent exterminator insulin use: without detention use Diabetes mellitus complication status: without complication Qualified Code(s): E11.9 - Type 2 diabetes mellitus without complications Code(s): E11.9 - Type 2 diabetes mellitus without complications Status: Chronic Assessment and Plan: ------last glucose 281 continue Accuchecks, SSI Coverage, Hypoglycemic protocol. (8) Chronic renal failure: Qualifiers: Chronic kidney disease stage: stage 3 (moderate) Chronic kidney disease stage 3 subtype: unspecified whether 3a or 3b Qualified Code(s): N18.30 - Chronic kidney disease, stage 3 unspecified Code(s): N18.9 - Chronic kidney disease, unspecified Status: Chronic Assessment and Plan: -------Cr appears to be at baseline. Pain is improving with lidocaine patch. Ultrasound of kidneys normal. DS: Summary Hospital Course Reason for hospitalization: weakness Hospital Course: Patient is a 69-year-old female who presented emergency room for nausea, vomiting and weakness after her 1st dose of chemotherapy the Friday prior. Vitals in the ER were temperature 36.3? C, pulse 56, respiratory rate 20, blood pressure 142/90, pulse ox 100 on room air. White blood cell count 2.9, hemoglobin 9.3, hematocrit 30.0, platelets 125. Sodium 136, potassium 4.1, chloride 103, carbon dioxide 26, BUN 26, creatinine 1.4, glucose 146. CT of the brain negative for acute pathology, chest x-ray negative, CT of the abdomen pelvis also negative. UA shows no indication of infection. Patient was admitted to the hospitalist service due to weakness due to recent chemotherapy and her nausea vomiting improved. During her stay, her hypertension medications were held and her blood pressure elevated >180 and she started having chest pain with this. EKG was reviewed which did not show acute pathology and the patie
[2019-12-11 11:49] LABS: Glucose Point of Care 225 (65-105)
[2019-12-11 16:27] LABS: Glucose Point of Care 281 (65-105)
== END 2019-12-11 16:50 | disposition home health service (06) ==
LOC: ANHED 12-09 00:06 → ANH2MED 12-09 00:40
PROVIDERS: Physician Assistant; Admitting Provider Family Medicine; Emergency Provider Emergency Medicine; PCP Internal Medicine; Visit Provider Family Medicine
DX: I16.0 Hypertensive urgency (principal); R53.1 Weakness; R11.2 Nausea with vomiting, unspecified; R07.9 Chest pain, unspecified; E86.0 Dehydration; T45.1X5A Adverse effect of antineoplastic and immunosuppressive drugs, initial encounter; D61.810 Antineoplastic chemotherapy induced pancytopenia; I12.9 Hypertensive chronic kidney disease with stage 1 through stage 4 chronic kidney disease, or unspecified chronic kidney disease; N18.30 Chronic kidney disease, stage 3 unspecified; C90.00 Multiple myeloma not having achieved remission; D63.1 Anemia in chronic kidney disease; E11.22 Type 2 diabetes mellitus with diabetic chronic kidney disease; Z92.21 Personal history of antineoplastic chemotherapy; R10.9 Unspecified abdominal pain; R94.31 Abnormal electrocardiogram [ECG] [EKG]; D61.818 Other pancytopenia; K52.9 Noninfective gastroenteritis and colitis, unspecified; Z79.4 Long term (current) use of insulin; Z79.82 Long term (current) use of aspirin
CPT/HCPCS: 36415; 70450; 71045; 71046; 74176; 76775; 80048; 80053; 81001; 82728; 83605; 83690; 83880; 84484; 85025; 85027; 85610; 85730; 86140; 86850; 86900; 86901; 93005; 96361; 96374; 96375; 96376; 97110; 97116; 97161; 97165; 97535; 99285; A9270; G0378; J0360; J1100; J1815; J2270; J2405; J2550; J7030

== ENCOUNTER 2020-09-01 09:32 | Outpatient (CLI) | payer MEDICARE, MEDICAID, SELFPAY ==
[2020-09-01 11:02] LABS: Alanine Aminotransferase 21 U/L (4-35); Albumin Level 3.5 g/dL (3.5-5.1); Alkaline Phosphatase 90 U/L (38-126); Anion Gap 11 mmol/L (8-16); Aspartate Amino Transferase 19 U/L (14-36); Bilirubin,Total 0.5 mg/dL (0.2-1.3); Blood Urea Nitrogen 14 mg/dL (7-17); Calcium 8.9 mg/dL (8.4-10.2); Carbon Dioxide 21 mmol/L (22-30); Chloride 105 mmol/L (98-107); Cholesterol 174 mg/dL (0-200); Estimated Glomerular Filt Rate 40; Glucose 237 mg/dL (65-110); HDL Direct 36 mg/dL; LDL Cholesterol Direct 92 mg/dL; Potassium 4.8 mmol/L (3.4-5.0); Sodium 137 mmol/L (137-145); Triglycerides 354 mg/dL (<150)
[2020-09-01 12:06] LABS: Hemoglobin A1C 7.6 % (<5.7)
== END 2020-09-01 09:33 | disposition home or self-care (01) ==
LOC: ANHLAB 09:37
PROVIDERS: PCP Internal Medicine; Visit Provider Internal Medicine Hematology & Oncology
DX: E11.9 Type 2 diabetes mellitus without complications (principal); I10 Essential (primary) hypertension
CPT/HCPCS: 36415; 80053; 80061; 83036

== ENCOUNTER 2020-10-18 17:26 | Observation (INO) | payer MEDICARE, MEDICAID, SELFPAY ==
--- NOTE | ~2020-10-18 | XR_ITS ---
EXAMINATION: XR chest 1V portable 10/18/2020 17:49 INDICATION: Syncope, anemia. Diabetes. Myeloma. PROCEDURE: AP portable chest COMPARISON: 12/10/2019 FINDINGS: The lungs are clear. The cardiomediastinal silhouette is within normal limits. There are no pleural effusions. There is no pneumothorax suspected. Apparent degenerative changes of the shou lders. IMPRESSION: 1: NO ACUTE CARDIOPULMONARY DISEASE. Reviewed, dictated and finalized at location A.
--- NOTE | ~2020-10-18 | CT_ITS ---
EXAMINATION: CT brain wo con DATE: 10/18/2020 18:12 INDICATION: Syncope. Trauma to the head. Temporal headache. Patient on aspirin. TECHNIQUE: Computed tomography (CT) of the head was performed without intravenous contrast. The dose- length product was 681.00 mGy-cm. Automated exposure control and iterative reconstruction technique w ere employed. COMPARISON: CT dated 12/08/2019 FINDINGS: No acute intracranial hemorrhage, infarction, mass or mass effect. Right frontal scalp joseph gabriella. No ventriculomegaly or midline shift. There is intracranial atherosclerosis. No depressed skull fractures. Paranasal sinuses and mastoids are pneumatized. Mild generalized atrophy, within normal l imits for age. There are scattered mild periventricular and subcortical white matter changes, most li claudia related to small vessel ischemic disease (microangiopathy). IMPRESSION: 1. No acute intracranial abnormality. 2: Moderate sized right frontal scalp hematoma. Reviewed, dictated and finalized at location A.
[2020-10-18 17:24] VITALS: BP 182/76; PULSE 79; RESP 16; TEMP 36.6; O2SAT 98
--- NOTE | 2020-10-18 17:32 | ECG_ITS ---
Measurements Intervals [place] Rate: 73 P: 18 NV: 143 QRS: -67 QRSD: 149 T: 11 QT: 419 QTc: 463 Interpretive Statements SINUS RHYTHM POSSIBLE LEFT ATRIAL ENLARGEMENT RIGHT BUNDLE BRANCH BLOCK LEFT ANTERIOR FASCICULAR BLOCK BASELINE ARTIFACT- I, III, AVR, AVL, AVF ABNORMAL ECG Electronically Signed On 10-18-2020 20:53:27 CDT by Carlos Bolden D.O.
--- NOTE | 2020-10-18 17:51 | ED.GENADULT ---
HPI - General Adult General Chief complaint: Fall Stated complaint: weakness Time Seen by Provider: 10/18/20 17:26 Source: patient, EMS and old records reviewed Mode of arrival: EMS Limitations: no limitations History of Present Illness HPI narrative: Patient is a 70-year-old female who presents to emergency department for evaluation of syncopal episode that occurred today at home was ambulating when she began to feel her syncopal fell to the ground notes that she quickly regained consciousness and was able to get up did strike the right side of her face she notes that she lives at home by herself patient states yesterday she had a booster shot for Covid she also notes that she has had unsteady gait and balance over the last week she is myeloma patient followed by Dr. Garcia she denies any chest pain shortness of breath vomiting diarrhea. Patient's only complaint on arrival is headache Related Data Home Medications Medication Instructions Recorded Confirmed aspirin 325 mg PO DAILY 02/12/19 10/10/20 cholecalciferol (vitamin D3) 50,000 unit PO WEEKLY 02/12/19 10/10/20 cyanocobalamin (vitamin B-12) 1,000 mcg SUBCUT MONTHLY 02/12/19 10/10/20 diltiazem HCl 120 mg PO DAILY 02/12/19 10/10/20 folic acid 1 mg PO DAILY 02/12/19 10/10/20 isosorbide mononitrate 30 mg PO DAILY 02/12/19 10/10/20 losartan 50 mg PO DAILY 02/12/19 10/10/20 magnesium oxide 400 mg PO BID 02/12/19 10/10/20 oxybutynin chloride 10 mg PO DAILY 02/12/19 10/10/20 pantoprazole 40 mg PO QAM 02/12/19 10/10/20 pregabalin [Lyrica] 50 mg PO HS 02/12/19 10/10/20 ferrous sulfate 325 mg PO BID 08/03/19 10/10/20 albuterol sulfate [ProAir HFA] 2 puff INHALATION Q4H PRN 12/09/19 10/10/20 chlorthalidone 25 mg PO DAILY 12/09/19 10/10/20 sertraline [Zoloft] 50 mg PO DAILY 12/09/19 10/10/20 lenalidomide [Revlimid] 15 mg PO DAILY 12/21/19 10/10/20 clindamycin HCl 300 mg PO Q8H 04/11/20 10/10/20 colchicine 0.6 mg PO DAILY 04/11/20 10/10/20 colchicine 0.6 mg PO DAILY 05/23/20 10/10/20 cyclobenzaprine [Flexeril] 10 mg PO TID PRN 05/23/20 10/10/20 cyclobenzaprine [Flexeril] 10 mg PO HS 07/05/20 10/10/20 cephalexin [Keflex] 500 mg PO Q8H 07/18/20 10/10/20 Allergies Allergy/AdvReac Type Severity Reaction Status Date / Time celecoxib Allergy Intermediate TACHYCARDIA Verified 10/10/20 10:38 ibuprofen Allergy Unknown Other Verified 10/10/20 10:38 iodine Allergy Unknown Other Verified 10/10/20 10:38 midazolam Allergy Unknown Other Verified 10/10/20 10:38 Penicillins Allergy Unknown Other Verified 10/10/20 10:38 Contrast Media Allergy Intermediate Hives / Uncoded 10/10/20 10:38 Red Face MIDAZOLAM HCL Allergy Unknown AMNESIA Uncoded 10/10/20 10:38 AFTER SURGERY Review of Systems Review of Systems: All systems reviewed & are unremarkable except as noted in HPI and below PMFSH Past Medical History Medical History Anemia Diabetes Light chain myeloma Family History Family History Mother Hypertension, Onset Age: 86 Family history of elevated blood lipids, Onset Age: 86 Patient's mother is Grandparent Cerebrovascular accident, Onset Age: 76 Diabetes mellitus, Onset Age: 84 Father Family history of coronary artery disease, Onset Age: 49 Patient's father is Social History Social History Smoking status: Never smoker Alcohol intake: never Substance use: never Gender identity (if verbalized by the patient): Female Spiritual care concerns: No Exam Narrative: GENERAL: Well-appearing, well-nourished, and in no acute distress. HEAD: Normocephalic, abrasion and swelling to the right temporal region EYES: PERRLA and EOMI. ENT: Nares clear, no rhinorrhea or epistaxis. Mucous membranes moist. Oropharynx without tonsillar hypertrophy exudate or other lesions.
[2020-10-18 18:50] LABS: Basophils Absolute Auto 0.1 K/mm3 (0.0-0.1); Basophils Percent Auto 1.1 % (0.2-1.2); Eosinophils Absolute Auto 0.3 K/mm3 (0-0.3); Eosinophils Percent Auto 6.7 % (0-4.4); Hematocrit 30.8 % (37.0-47.0); Hemoglobin 9.8 g/dL (12.0-15.0); Immature Granulocyte Absolute 0.06 K/mm3 (0.00-0.031); Immature Granulocyte Percent A 1.3 % (0-0.5); Immature Platelet Fraction Pct 4.7 % (0.9-11.2); Lymphocytes Absolute Auto 0.36 K/mm3 (0.9-3.2); Mean Corpuscular HGB Conc 31.8 g/dl (32-36); Mean Corpuscular Hemoglobin 29.9 pg (26-34); Mean Corpuscular Volume 93.9 fl (80-100); Mean Platelet Volume 11.6 fl (7.4-10.4); Monocytes Absolute Auto 0.3 K/mm3 (0.1-0.6); Monocytes Percent Auto 7.6 % (2.6-8.5); Neutrophils Absolute Auto 3.4 K/mm3 (1.3-6.7); Neutrophils Percent Auto 75.3 % (45.5-73.1); Platelet Count Result 96 k/mm3 (150-375); Red Blood Count 3.28 M/mm3 (4.2-5.4); Red Cell Distribution Width 15.2 % (11.5-14.5); White Blood Count 4.5 K/mm3 (4.5-10.0)
--- NOTE | 2020-10-18 18:50 | PC.NURSE ---
Multiple RNs attempted to start IV. Unsuccessful at this time. EDISON Joaquin aware.
[2020-10-18 19:49] LABS: Add Urine Microscopic? YES; Appearance Urine Clear (Clear); Bacteria Urine Trace /hpf; Bilirubin Urine Negative (Negative); Blood Urine 1+ (Negative); Color Urine Yellow (Yellow); Glucose Urine UA Negative (Negative); Ketones Urine Negative (Negative); Leukocyte Esterase Ur 1+ LEU/UL (Negative); Mucus Urine Rare /lpf; Nitrate Urine Negative (Negative); Protein Urine 1+ mg/dL (Negative); Specific Grav Ur 1.017 (1.001-1.035); Squamous Epithelial Cell Urine Occasional /hpf (Few); Urobilinogen Urine Negative mg/dL (<2.0); WBC Urine 21-30 /hpf
[2020-10-18] MEDS: LACTATED RINGERS 1,000 ML 999 ML IV CONT (20:24)
[2020-10-18 20:33] VITALS: BP 157/74; PULSE 75; RESP 12; TEMP 36.6; O2SAT 97
--- NOTE | 2020-10-18 20:40 | PC.NURSE ---
KENNETH Salter able to obtain IV access with ultrasound.
[2020-10-18 20:54] LABS: Lactic Acid Reflex 0.9 mmol/L (0.7-2.1)
[2020-10-18 21:04] LABS: Partial Thromboplastin Time 23.8 SECONDS (22.3-36.8)
[2020-10-18 21:05] LABS: Alanine Aminotransferase 14 U/L (4-35); Albumin Level 3.6 g/dL (3.5-5.1); Alkaline Phosphatase 113 U/L (38-126); Anion Gap 7 mmol/L (8-16); Aspartate Amino Transferase 21 U/L (14-36); Blood Urea Nitrogen 23 mg/dL (7-17); CRP 6.7 mg/dL (<1.0); Calcium 9.1 mg/dL (8.4-10.2); Carbon Dioxide 24 mmol/L (22-30); Chloride 102 mmol/L (98-107); Estimated CRCL calculation 46 ml/min; Estimated Glomerular Filt Rate 40; Glucose 178 mg/dL (65-110); Lipase 37 U/L (23-300); Potassium 3.8 mmol/L (3.4-5.0); Sodium 133 mmol/L (137-145)
[2020-10-18 21:09] LABS: Troponin I 0.034 ng/mL (0.000-0.034)
[2020-10-18] MEDS: HYDROcodone/acetaminophen (*CRX) 7.5-325 MG TABLET 1 TAB PO (21:54)
[2020-10-18 22:19] VITALS: BP 152/58; PULSE 74; RESP 18; TEMP 36.6; O2SAT 98
--- NOTE | 2020-10-18 22:28 | PM.IMHP ---
H&P: HPI History of Present Illness Date/Time: 10/18/20 22:28 Chief Complaint: Fall /syncope Narrative: Patient is a 70-year-old female who presents to emergency department for evaluation of syncopal episode that occurred today at home while she was ambulating from her bathroom to her bed. She states that she has not been feeling well all day today and has been feeling woozy. She ate her breakfast and has been drinking fluids however has not eaten all day as she was little nauseated as well. She denies any diarrhea or abdominal pain or shortness of breath or chest pain. While she was coming back to the bed she fell to the ground and states she lost consciousness briefly. While she feels the hit her right side of her head and reports it is sore in that area. She did not have any abnormal limb movements or weakness in any arm or legs. She came to the ED for evaluation. She got a booster shot for her COVID yesterday. She also had started her 2 week course of her Revlimid for her underlying myeloma. She follows up with Dr. Finch since past few years and has been on treatment since then. She states she used to be 3 weeks on 1 week off course previously however was not able to tolerate that and hence was lowered to 2 weeks on 1 week off course now. She does report better blood counts are monitored as it tends to drift down after she starts on the course of treatment. She denies any other complaints today. See also reports he did fall on Friday when she lost her balance while leaning on her car. She did not lose consciousness at that time. No prior history of recurrent falls in the past Review of Systems Review of Systems: - CONSTITUTIONAL: Denies weight loss, fever and chills. - HEENT: Denies changes in vision and hearing - RESPIRATORY: Denies SOB and cough. - CV: Denies palpitations and CP. - GI: Denies abdominal pain, nausea, vomiting and diarrhea. - : Denies dysuria and urinary frequency. - MSK: Denies myalgia and joint pain. - SKIN: Denies rash and pruritus. - NEUROLOGICAL: reports headache and syncope. - PSYCHIATRIC: Denies recent changes in mood. Denies anxiety and depression. All systems reviewed & are unremarkable except as noted in HPI and below Constitutional: Constitutional: Reports fatigue and Reports weakness Neurologic: Reports weakness Endocrine: Endocrine: Reports fatigue [facility] Past Medical History Medical History Anemia Diabetes Light chain myeloma Family History Family History Mother Hypertension, Onset Age: 86 Family history of elevated blood lipids, Onset Age: 86 Patient's mother is Grandparent Cerebrovascular accident, Onset Age: 76 Diabetes mellitus, Onset Age: 84 Father Family history of coronary artery disease, Onset Age: 49 Patient's father is Social History Social History Smoking status: Never smoker Alcohol intake: never Substance use: never Gender identity (if verbalized by the patient): Female Spiritual care concerns: No Meds Home Medications and Allergies Home Medications Medication Instructions Recorded Confirmed Type cholecalciferol (vitamin D3) 50,000 unit PO WEEKLY 02/12/19 10/10/20 History cyanocobalamin (vitamin B-12) 1,000 mcg SUBCUT MONTHLY 02/12/19 10/10/20 History diltiazem HCl 120 mg PO DAILY 02/12/19 10/10/20 History isosorbide mononitrate 30 mg PO DAILY 02/12/19 10/10/20 History losartan 50 mg PO DAILY 02/12/19 10/10/20 History oxybutynin chloride 10 mg PO DAILY 02/12/19 10/10/20 History pantoprazole 40 mg PO QAM 02/12/19 10/10/20 History pregabalin [Lyrica] 50 mg PO HS 02/12/19 10/10/20 History ferrous sulfate 325 mg PO BID 08/03/19 10/10/20 History albuterol sulfate [ProAir HFA] 2 puff INHALATION Q4H PRN 12/09/19 10/10/20 Hi
--- NOTE | 2020-10-18 22:33 | PC.NURSE ---
The hospitalist is in this patient's room. Patient will go upstairs after hospitalist is done.
[2020-10-18] MEDS: LACTATED RINGERS 1,000 ML 125 ML IV CONT (22:48)
[2020-10-18 22:57] VITALS: BP 155/64; PULSE 72; RESP 20; TEMP 35.7; O2SAT 95; BMI 42.1
[2020-10-19] VITALS (17 sets, daily range): BP systolic 117–175; BP diastolic 42–77; PULSE 56–96; RESP 20; TEMP 35.7–36.4; O2SAT 96–99
[2020-10-19 00:29] LABS: Glucose Point of Care 157 mg/dl (65-105)
[2020-10-19] MEDS: allopurinoL 100 MG TABLET 200 MG PO ×2 (00:59→20:10)
[2020-10-19] MEDS: LOSARTAN POTASSIUM 50 MG TABLET 100 MG PO ×2 (00:59→20:10)
[2020-10-19] MEDS: carvediloL 12.5 MG TABLET PO ×3 (00:59→20:10)
[2020-10-19 06:53] LABS: Glucose Point of Care 147 mg/dl (65-105)
[2020-10-19] MEDS: LACTATED RINGERS 1,000 ML 125 ML IV CONT ×3 (07:10→23:00)
[2020-10-19] MEDS: ASPIRIN 81 MG CHEWABLE TABLET PO (08:19)
[2020-10-19] MEDS: SERTRALINE HCL 50 MG TABLET PO (08:19)
[2020-10-19] MEDS: PANTOPRAZOLE 40 MG TABLET PO (08:19)
[2020-10-19] MEDS: PRIMIDONE 50 MG TABLET PO ×2 (08:19→16:31)
[2020-10-19] MEDS: ISOSORBIDE MONONITRATE 30 MG TAB.ER.24H PO (08:19)
[2020-10-19] MEDS: LORATADINE 10 MG TABLET PO (08:20)
[2020-10-19] MEDS: OMEGA 3 POLYUNSAT FATTY ACIDS 1 GM CAP 2 GM PO ×2 (08:20→16:31)
[2020-10-19] MEDS: FAMOTIDINE 20 MG/2 ML VIAL IV PUSH ×2 (08:21→20:10)
[2020-10-19] MEDS: CYANOCOBALAMIN INJ 1,000 MCG/ML VIAL 1000 MCG SUB-Q (08:22)
[2020-10-19] MEDS: PREGABALIN (*CRX) 25 MG CAPSULE 75 MG PO (08:36)
--- NOTE | 2020-10-19 11:05 | PHAR ---
The patient's home med of Revlimid 15mg has been verified by pharmacist.
[2020-10-19 12:02] LABS: Glucose Point of Care 225 mg/dl (65-105)
[2020-10-19] MEDS: INSULIN ASPART (*BKC) 100 UNITS/ML SUB-Q (12:05)
--- NOTE | 2020-10-19 12:42 | PM.IMPN ---
Progress Note: A&P Assessment and Plan (1) Syncope: Code(s): R55 - Syncope and collapse Status: Acute Assessment and Plan: Likely related to dehydration from recent chemotherapy/booster COVID vaccination/urinary tract infection Cardiac markers negative CRP is elevated Lactic acid wnl Tele monitoring (2) Head injury: Code(s): S09.90XA - Unspecified injury of head, initial encounter Status: Acute Assessment and Plan: Closed head injury with frontal hematoma Head CT-->no acute intracranial abnormality (3) Pancytopenia: Code(s): D61.818 - Other pancytopenia Status: Acute Assessment and Plan: Hx of myeloma likely chemotherapy-induced Followed by Dr. 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 use: without assisted use Diabetes mellitus type: type 2 Qualified Code(s): E11.9 - Type 2 diabetes mellitus without complications Code(s): E11.9 - Type 2 diabetes mellitus without complications Status: Chronic Assessment and Plan: Resume home meds SSI, accuchecks Monito r (9) Chronic renal failure: Qualifiers: Chronic kidney disease stage: stage 3 (moderate) Chronic kidney disease stage 3 subtype: unspecified whether 3a or 3b Qualified Code(s): N18.30 - Chronic kidney disease, stage 3 unspecified Code(s): N18.9 - Chronic kidney disease, unspecified Status: Chronic Assessment and Plan: Cr 1.3, appears close to baseline Avoid nephrotoxins Renally dose all meds Monitor (10) UTI (urinary tract infection): Code(s): N39.0 - Urinary tract infection, site not specified Status: Acute Assessment and Plan: Continue ceftriaxone Follow UC Additional Plan # DVT prophylaxis: Lovenox monitor platelet count # Full code status admitted under observation status Subjective Date/time seen: 10/19/20 12:42 Interval history: Pt seen and evaluated; labs, diagnostic results reviewed; no acute events overnight; denies any new complaints Review of Systems Review of Systems: All systems reviewed & are unremarkable except as noted in HPI and below Exam Narrative: GENERAL: Well-appearing, well-nourished, and in no acute distress. HEAD: Normocephalic, abrasion and swelling to the right temporal region EYES: PERRLA and EOMI. ENT: Nares clear, no rhinorrhea or epistaxis. Mucous membranes moist. NECK: Supple. No adenopathy or masses. CHEST: Clear to auscultation. No respiratory distress. No wheezes rales or rhonchi HEART: Regular rate and rhythm. No murmur heard. Normal peripheral pulses. ABDOMEN: Soft, nontender, nondistended EXTREMITIES: Normal range of motion. No edema. No cervical thoracic or lumbar tenderness SKIN: Warm, dry, no rash. NEURO: No focal deficits. Alert and oriented x3. Cranial nerves II through XII grossly intact PSYCH: Normal mood and affect. Objective Data Vital Signs Vital Signs: Vital Signs - 24 hr 10/18/20 17:24 10/18/20 20:33 10/18/20 22:19 Temperature 36.6 C 36.6 C 36.6 C Pulse Rate 79 75 74 Respiratory Rate 16 12 18 Blood Pressure 182/76 H 157/74 H 152/58 H Pulse Oximetry 98 97 98 10/18/20
--- NOTE | 2020-10-19 12:47 | PDONCCN ---
HPI - Date of Consult Date/Time: 10/19/20 12:47 Requesting Physician: Sharif Seals MD Primary Care Provider: Cesario DoyleMD - Consult Narrative Reason for consult: Multiple myeloma Narrative: Jaimie Nix is a 70 year old female with history of multiple myeloma currently on low-dose Revlimid 2 weeks on and 1 week off due to her poor tolerance. She came into the hospital status post fall yesterday. According the patient she received COVID booster day before her fall. She denies any headaches and seizures. She has some neuropathy in bilateral hands. She has chronic neuropathy in the lower extremities. Labs showed hemoglobin of 9.8. Platelet count [place] [address]. Head [address] showed no acute intracranial abnormality there was moderate size right frontal scalp hematoma. Patient is also receiving Procrit injection for anemia of chronic kidney disease in my office. Review of Systems - Review of Systems All systems reviewed & are unremarkable except as noted in HPI and bel - Neurologic Reports weakness PMFSH Medical History: Medical History (Last Reviewed 10/18/20 @ 17:54 by Wisam Huffman PA-C) Anemia Diabetes Light chain myeloma Family History: Family History (Last Reviewed 12/16/19 @ 19:53 by [place], ) Mother Hypertension, Onset Age: 86 Family history of elevated blood lipids, Onset Age: 86 Patient's mother is Grandparent Cerebrovascular accident, Onset Age: 76 Diabetes mellitus, Onset Age: 84 Father Family history of coronary artery disease, Onset Age: 49 Patient's father is - Social History Social History: Social History (Last Reviewed 10/18/20 @ 17:54 by Wisam Huffman PA-C) Gender Identity: Gender identity (if verbalized by the patient): Female Alcohol Use: Alcohol intake: never Substance Use: Substance use: never Others: Spiritual care concerns: No Smoking Status: Smoking status: Never smoker Meds Home Medications Medication Instructions Recorded Confirmed Type RX: cholecalciferol (vitamin D3) 50,000 unit PO WEEKLY 02/12/19 10/18/20 History RX: cyanocobalamin (vitamin B-12) 1,000 mcg SUBCUT MONTHLY 02/12/19 10/18/20 History RX: diltiazem HCl 120 mg PO DAILY 02/12/19 10/18/20 History RX: isosorbide mononitrate 30 mg PO DAILY 02/12/19 10/18/20 History RX: losartan 100 mg PO HS 02/12/19 10/18/20 History RX: oxybutynin chloride 10 mg PO DAILY 02/12/19 10/18/20 History RX: pantoprazole 40 mg PO QAM 02/12/19 10/18/20 History RX: pregabalin [Lyrica] 75 mg PO DAILY 02/12/19 10/18/20 History RX: ferrous sulfate 650 mg PO DAILY 08/03/19 10/18/20 History RX: albuterol sulfate [ProAir HFA] 2 puff INHALATION Q4H PRN 12/09/19 10/18/20 History RX: chlorthalidone 25 mg PO DAILY 12/09/19 10/18/20 History RX: sertraline [Zoloft] 50 mg PO DAILY 12/09/19 10/18/20 History RX: carvedilol 12.5 mg PO Q12H #60 tablet 12/11/19 10/18/20 Rx lenalidomide [Revlimid] 15 mg PO DAILY 12/21/19 10/18/20 History RX: colchicine 0.6 mg PO DAILY PRN 05/23/20 10/18/20 History RX: Tresiba U-100 Insulin 94 unit SUBCUT HS 10/18/20 10/18/20 History RX: albuterol sulfate 0.63 mg INHALATION Q6H PRN 10/18/20 10/18/20 History RX: allopurinol 200 mg PO HS 10/18/20 10/18/20 History RX: aspirin 81 mg PO DAILY 10/18/20 10/18/20 History RX: primidone 50 mg PO BID 10/18/20 10/18/20 History cetirizine [Zyrtec] 10 mg PO DAILY 10/18/20 10/18/20 History icosapent ethyl [Vascepa] 2 g PO BID 10/18/20 10/18/20 History mometasone-formoterol [Dulera] 2 puff INHALATION BID 10/18/20 10/18/20 History tiotropium bromide [Spiriva 2 puff INHALATION DAILY 10/18/20 10/18/20 History Respimat] Allergies Allergy/AdvReac Type Severity Reaction Status Date / Time celecoxib Allergy Intermediate TACHYCARDIA Verified 10/18/20 23:35 ibuprofen Allergy Unknown Other Verified 10/18/20 23:35 iodine Allergy Unknown Other Verified 10/18/20 23:35 mid
[2020-10-19 15:52] LABS: Vitamin B12 > 1000.0 pg/mL (239-931)
[2020-10-19] MEDS: FERROUS SULFATE 324 MG TABLET 648 MG PO (16:31)
[2020-10-19 16:48] LABS: Glucose Point of Care 182 mg/dl (65-105)
[2020-10-19] MEDS: ONDANSETRON INJ 4 MG/2 ML VIAL IV PUSH (18:39)
[2020-10-19 20:56] LABS: Glucose Point of Care 221 mg/dl (65-105)
[2020-10-20] VITALS (13 sets, daily range): BP systolic 134–158; BP diastolic 55–75; PULSE 51–77; RESP 18–20; TEMP 35.7–37.2; O2SAT 97–100
[2020-10-20 06:41] LABS: Glucose Point of Care 139 mg/dl (65-105)
[2020-10-20] MEDS: OMEGA 3 POLYUNSAT FATTY ACIDS 1 GM CAP 2 GM PO ×2 (08:07→16:18)
[2020-10-20] MEDS: LACTATED RINGERS 1,000 ML 125 ML IV CONT (08:07)
[2020-10-20] MEDS: PREGABALIN (*CRX) 25 MG CAPSULE 75 MG PO (08:07)
[2020-10-20] MEDS: carvediloL 12.5 MG TABLET PO ×2 (08:08→20:20)
[2020-10-20] MEDS: ISOSORBIDE MONONITRATE 30 MG TAB.ER.24H PO (08:08)
[2020-10-20] MEDS: LORATADINE 10 MG TABLET PO (08:08)
[2020-10-20] MEDS: PRIMIDONE 50 MG TABLET PO ×2 (08:08→16:18)
[2020-10-20] MEDS: PANTOPRAZOLE 40 MG TABLET PO (08:08)
[2020-10-20] MEDS: FAMOTIDINE 20 MG/2 ML VIAL IV PUSH ×2 (08:08→20:20)
[2020-10-20] MEDS: SERTRALINE HCL 50 MG TABLET PO (08:09)
[2020-10-20] MEDS: ASPIRIN 81 MG CHEWABLE TABLET PO (08:09)
[2020-10-20] MEDS: ERGOCALCIFEROL 50,000 UNIT CAPSULE 50000 UNITS PO (08:09)
[2020-10-20] MEDS: COLCHICINE 0.6 MG TABLET PO (08:09)
[2020-10-20 09:41] LABS: Hematocrit 28.2 % (37.0-47.0); Hemoglobin 8.8 g/dL (12.0-15.0); Mean Corpuscular HGB Conc 31.2 g/dl (32-36); Mean Corpuscular Hemoglobin 28.9 pg (26-34); Mean Corpuscular Volume 92.5 fl (80-100); Mean Platelet Volume 11.7 fl (7.4-10.4); Platelet Count Result 111 k/mm3 (150-375); Red Blood Count 3.05 M/mm3 (4.2-5.4); Red Cell Distribution Width 15.5 % (11.5-14.5); White Blood Count 2.8 K/mm3 (4.5-10.0)
[2020-10-20 09:53] LABS: Anion Gap 7 mmol/L (8-16); Blood Urea Nitrogen 19 mg/dL (7-17); Calcium 8.9 mg/dL (8.4-10.2); Carbon Dioxide 25 mmol/L (22-30); Chloride 102 mmol/L (98-107); Estimated CRCL calculation 46 ml/min; Estimated Glomerular Filt Rate 40; Glucose 213 mg/dL (65-110); Potassium 4.2 mmol/L (3.4-5.0); Sodium 134 mmol/L (137-145)
[2020-10-20 12:40] LABS: Glucose Point of Care 228 mg/dl (65-105)
[2020-10-20] MEDS: INSULIN ASPART (*BKC) 100 UNITS/ML SUB-Q (12:53)
[2020-10-20] MEDS: ACETAMINOPHEN 325 MG TABLET 650 MG PO (12:54)
--- NOTE | 2020-10-20 13:50 | PM.IMPN ---
Progress Note: A&P Assessment and Plan (1) Syncope: Code(s): R55 - Syncope and collapse Status: Acute Assessment and Plan: Likely related to dehydration from recent chemotherapy/booster COVID vaccination/urinary tract infection Cardiac markers negative CRP is elevated Lactic acid wnl Tele monitoring (2) Head injury: Code(s): S09.90XA - Unspecified injury of head, initial encounter Status: Acute Assessment and Plan: Closed head injury with frontal hematoma Head CT-->no acute intracranial abnormality (3) Pancytopenia: Code(s): D61.818 - Other pancytopenia Status: Acute Assessment and Plan: Hx of myeloma likely chemotherapy-induced Followed by Dr. 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 Finch Follows with Dr. Finch (8) Diabetes: Qualifiers: Diabetes mellitus type: type 2 Diabetes mellitus care home insulin use: without care home use Diabetes mellitus complication status: without complication Qualified Code(s): E11.9 - Type 2 diabetes mellitus without complications Code(s): E11.9 - Type 2 diabetes mellitus without complications Status: Chronic Assessment and Plan: Resume home meds SSI, accuchecks Monito r (9) Chronic renal failure: Qualifiers: Chronic kidney disease stage: stage 3 (moderate) Chronic kidney disease stage 3 subtype: unspecified whether 3a or 3b Qualified Code(s): N18.30 - Chronic kidney disease, stage 3 unspecified Code(s): N18.9 - Chronic kidney disease, unspecified Status: Chronic Assessment and Plan: Cr 1.3, appears close to baseline Avoid nephrotoxins Renally dose all meds Monitor (10) UTI (urinary tract infection): Code(s): N39.0 - Urinary tract infection, site not specified Status: Acute Assessment and Plan: Continue ceftriaxone Follow UC Additional Plan # DVT prophylaxis: Lovenox monitor platelet count # Full code status admitted under observation status pt would like to participate in inpatient therapy Subjective Date/time seen: 10/20/20 13:50 Interval history: Pt seen and evaluated; labs and VS results reviewed; no acute events overnight; this a.m. the patient states that she has been feeling lightheaded and weak Review of Systems Review of Systems: All systems reviewed & are unremarkable except as noted in HPI and below Exam Narrative: GENERAL: Well-appearing, well-nourished, and in no acute distress. HEAD: Normocephalic, abrasion and swelling to the right temporal region EYES: PERRLA and EOMI. ENT: Nares clear, no rhinorrhea or epistaxis. Mucous membranes moist. NECK: Supple. No adenopathy or masses. CHEST: Clear to auscultation. No respiratory distress. No wheezes rales or rhonchi HEART: Regular rate and rhythm. No murmur heard. Normal peripheral pulses. ABDOMEN: Soft, nontender, nondistended EXTREMITIES: Normal range of motion. No edema. No cervical thoracic or lumbar tenderness SKIN: Warm, dry, no rash. NEURO: No focal deficits. Alert and oriented x3. Cranial nerves II through XII grossly intact PSYCH: Normal mood and affect. Objective Data Vital Signs Vital Signs: Vital Signs - 24 hr 10/19/20 15:19 10/19/20 16:00 10/19/20 18:20 Temperature 36.2 C L 35.7 C L Pulse Rate 68 71 70 Respiratory Rate 20 20 Blood Pre
[2020-10-20] MEDS: FERROUS SULFATE 324 MG TABLET 648 MG PO (16:18)
[2020-10-20 16:35] LABS: Glucose Point of Care 150 mg/dl (65-105)
[2020-10-20] MEDS: traMADol HCL (*CRX) 50 MG TABLET 100 MG PO (16:57)
[2020-10-20] MEDS: allopurinoL 100 MG TABLET 200 MG PO (20:20)
[2020-10-20] MEDS: LOSARTAN POTASSIUM 50 MG TABLET 100 MG PO (20:20)
[2020-10-20 21:45] LABS: Glucose Point of Care 194 mg/dl (65-105)
[2020-10-21] VITALS (14 sets, daily range): BP systolic 107–169; BP diastolic 45–74; PULSE 51–91; RESP 20–21; TEMP 36.1–36.8; O2SAT 98–100
[2020-10-21] MEDS: ACETAMINOPHEN 325 MG TABLET 650 MG PO (02:51)
[2020-10-21 05:06] LABS: Hematocrit 26.8 % (37.0-47.0); Hemoglobin 8.3 g/dL (12.0-15.0); Mean Corpuscular Hemoglobin 29.3 pg (26-34); Mean Corpuscular Volume 94.7 fl (80-100); Mean Platelet Volume 11.1 fl (7.4-10.4); Platelet Count Result 107 k/mm3 (150-375); Red Blood Count 2.83 M/mm3 (4.2-5.4); Red Cell Distribution Width 15.3 % (11.5-14.5); White Blood Count 2.7 K/mm3 (4.5-10.0)
[2020-10-21 05:35] LABS: Anion Gap 9 mmol/L (8-16); Blood Urea Nitrogen 19 mg/dL (7-17); Calcium 8.9 mg/dL (8.4-10.2); Carbon Dioxide 24 mmol/L (22-30); Chloride 104 mmol/L (98-107); Estimated CRCL calculation 46 ml/min; Estimated Glomerular Filt Rate 40; Glucose 178 mg/dL (65-110); Sodium 137 mmol/L (137-145)
[2020-10-21] MEDS: ASPIRIN 81 MG CHEWABLE TABLET PO (08:04)
[2020-10-21] MEDS: carvediloL 12.5 MG TABLET PO ×2 (08:07→20:13)
[2020-10-21] MEDS: ISOSORBIDE MONONITRATE 30 MG TAB.ER.24H PO (08:08)
[2020-10-21] MEDS: LORATADINE 10 MG TABLET PO (08:08)
[2020-10-21] MEDS: FAMOTIDINE 20 MG/2 ML VIAL IV PUSH ×2 (08:08→20:13)
[2020-10-21] MEDS: OMEGA 3 POLYUNSAT FATTY ACIDS 1 GM CAP 2 GM PO ×2 (08:08→16:29)
[2020-10-21] MEDS: SERTRALINE HCL 50 MG TABLET PO (08:09)
[2020-10-21] MEDS: PRIMIDONE 50 MG TABLET PO ×2 (08:09→16:29)
[2020-10-21] MEDS: PREGABALIN (*CRX) 25 MG CAPSULE 75 MG PO (08:09)
[2020-10-21] MEDS: PANTOPRAZOLE 40 MG TABLET PO (08:09)
[2020-10-21 09:14] LABS: Glucose Point of Care 161 mg/dl (65-105)
--- NOTE | 2020-10-21 10:44 | PM.IMPN ---
Progress Note: A&P Assessment and Plan (1) Syncope: Code(s): R55 - Syncope and collapse Status: Acute Assessment and Plan: Likely related to dehydration from recent chemotherapy/booster COVID vaccination/urinary tract infection Cardiac markers negative CRP is elevated Lactic acid wnl Tele monitoring (2) Head injury: Code(s): S09.90XA - Unspecified injury of head, initial encounter Status: Acute Assessment and Plan: Closed head injury with frontal hematoma Head CT-->no acute intracranial abnormality (3) Pancytopenia: Code(s): D61.818 - Other pancytopenia Status: Acute Assessment and Plan: Hx of myeloma likely chemotherapy-induced Followed by Dr. 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 Finch Follows with Dr. Finch (8) Diabetes: Qualifiers: Diabetes mellitus type: type 2 Diabetes mellitus usp insulin use: without usp use Diabetes mellitus complication status: without complication Qualified Code(s): E11.9 - Type 2 diabetes mellitus without complications Code(s): E11.9 - Type 2 diabetes mellitus without complications Status: Chronic Assessment and Plan: Resume home meds SSI, accuchecks Monito r (9) Chronic renal failure: Qualifiers: Chronic kidney disease stage: stage 3 (moderate) Chronic kidney disease stage 3 subtype: unspecified whether 3a or 3b Qualified Code(s): N18.30 - Chronic kidney disease, stage 3 unspecified Code(s): N18.9 - Chronic kidney disease, unspecified Status: Chronic Assessment and Plan: Cr 1.3, appears close to baseline Avoid nephrotoxins Renally dose all meds Monitor (10) UTI (urinary tract infection): Code(s): N39.0 - Urinary tract infection, site not specified Status: Acute Assessment and Plan: Continue ceftriaxone Follow UC Additional Plan # DVT prophylaxis: Lovenox monitor platelet count # Full code status admitted under observation status pt would like to participate in inpatient therapy Subjective Date/time seen: 10/21/20 10:44 Interval history: Pt seen and evaluated; labs and VS results reviewed; no acute events overnight; this a.m. the patient states that she has been feeling lightheaded and weak Exam Narrative: GENERAL: Well-appearing, well-nourished, and in no acute distress. HEAD: Normocephalic, abrasion to the right temporal region EYES: PERRLA and EOMI. ENT: Nares clear, no rhinorrhea or epistaxis. Mucous membranes moist. NECK: Supple. No adenopathy or masses. CHEST: Clear to auscultation. No respiratory distress. No wheezes rales or rhonchi HEART: Regular rate and rhythm. No murmur heard. Normal peripheral pulses. ABDOMEN: Soft, nontender, nondistended EXTREMITIES: Normal range of motion. No edema. No cervical thoracic or lumbar tenderness SKIN: Warm, dry, no rash. NEURO: No focal deficits. Alert and oriented x3. Cranial nerves II through XII grossly intact PSYCH: Normal mood and affect. Objective Data Vital Signs Vital Signs: Vital Signs - 24 hr 10/20/20 12:00 10/20/20 14:00 10/20/20 16:00 Temperature 36.6 C Pulse Rate 66 60 64 Respiratory Rate 18 Blood Pressure 142/62 H Pulse Oximetry 99 10/20/20 18:00 10/20/20 20:00 10/20/20 20:20 Temperature 37.2 C Pulse Rate 72 64 77 Respira
[2020-10-21] MEDS: INSULIN ASPART (*BKC) 100 UNITS/ML SUB-Q (11:42)
[2020-10-21 11:53] LABS: Glucose Point of Care 214 mg/dl (65-105)
[2020-10-21 12:29] LABS: EDCOVIDSCREEN Negative (Negative)
[2020-10-21 16:33] LABS: Glucose Point of Care 175 mg/dl (65-105)
[2020-10-21] MEDS: FERROUS SULFATE 324 MG TABLET 648 MG PO (17:13)
[2020-10-21] MEDS: allopurinoL 100 MG TABLET 200 MG PO (20:13)
[2020-10-21] MEDS: LOSARTAN POTASSIUM 50 MG TABLET 100 MG PO (20:14)
[2020-10-21 21:14] LABS: Glucose Point of Care 195 mg/dl (65-105)
[2020-10-22] VITALS (8 sets, daily range): BP systolic 143–168; BP diastolic 64–79; PULSE 55–66; RESP 18–20; TEMP 36.2–36.6; O2SAT 96–98
[2020-10-22 05:44] LABS: Anion Gap 7 mmol/L (8-16); Blood Urea Nitrogen 18 mg/dL (7-17); Calcium 8.6 mg/dL (8.4-10.2); Carbon Dioxide 25 mmol/L (22-30); Chloride 104 mmol/L (98-107); Estimated CRCL calculation 50 ml/min; Estimated Glomerular Filt Rate 44; Glucose 225 mg/dL (65-110); Potassium 4.2 mmol/L (3.4-5.0); Sodium 136 mmol/L (137-145)
[2020-10-22] MEDS: FAMOTIDINE 20 MG/2 ML VIAL IV PUSH (08:39)
[2020-10-22] MEDS: carvediloL 12.5 MG TABLET PO (08:39)
[2020-10-22] MEDS: ASPIRIN 81 MG CHEWABLE TABLET PO (08:39)
[2020-10-22] MEDS: OMEGA 3 POLYUNSAT FATTY ACIDS 1 GM CAP 2 GM PO (08:40)
[2020-10-22] MEDS: PANTOPRAZOLE 40 MG TABLET PO (08:40)
[2020-10-22] MEDS: ISOSORBIDE MONONITRATE 30 MG TAB.ER.24H PO (08:40)
[2020-10-22] MEDS: PREGABALIN (*CRX) 25 MG CAPSULE 75 MG PO (08:40)
[2020-10-22] MEDS: LORATADINE 10 MG TABLET PO (08:41)
[2020-10-22] MEDS: PRIMIDONE 50 MG TABLET PO (08:41)
[2020-10-22] MEDS: SERTRALINE HCL 50 MG TABLET PO (08:41)
[2020-10-22] MEDS: INSULIN ASPART (*BKC) 100 UNITS/ML SUB-Q (08:50)
[2020-10-22 09:11] LABS: Glucose Point of Care 228 mg/dl (65-105)
--- NOTE | 2020-10-22 10:04 | PM.DS ---
DS: Admitting Diagnosis Discharge Date 10/22/2020 Admitting Diagnosis Fall/syncope DS: Discharge Diagnosis Discharge Diagnosis (1) Syncope: Code(s): R55 - Syncope and collapse Status: Acute Assessment and Plan: Likely related to dehydration from recent chemotherapy/booster COVID vaccination/urinary tract infection Cardiac markers negative CRP is elevated Lactic acid wnl (2) Head injury: Code(s): S09.90XA - Unspecified injury of head, initial encounter Status: Acute Assessment and Plan: Closed head injury with frontal hematoma Head CT-->no acute intracranial abnormality (3) Pancytopenia: Code(s): D61.818 - Other pancytopenia Status: Acute Assessment and Plan: Hx of myeloma likely chemotherapy-induced Followed by Dr. 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 Finch Follows with Dr. Finch (8) Diabetes: Qualifiers: Diabetes mellitus complication status: without complication Diabetes mellitus fpc insulin use: without fpc use Diabetes mellitus type: type 2 Qualified Code(s): E11.9 - Type 2 diabetes mellitus without complications Code(s): E11.9 - Type 2 diabetes mellitus without complications Status: Chronic Assessment and Plan: Resume home meds SSI, accuchecks Monito r (9) Chronic renal failure: Qualifiers: Chronic kidney disease stage: stage 3 (moderate) Chronic kidney disease stage 3 subtype: unspecified whether 3a or 3b Qualified Code(s): N18.30 - Chronic kidney disease, stage 3 unspecified Code(s): N18.9 - Chronic kidney disease, unspecified Status: Chronic Assessment and Plan: Cr 1.3, appears close to baseline Avoid nephrotoxins Renally dose all meds Monitor (10) UTI (urinary tract infection): Code(s): N39.0 - Urinary tract infection, site not specified Status: Acute Assessment and Plan: Continue ceftriaxone Follow UC DS: Summary Hospital Course Hospital Course: Patient is a 70-year-old female who presents to emergency department for evaluation of syncopal episode that occurred today at home while she was ambulating from her bathroom to her bed. She states that she has not been feeling well all day today and has been feeling woozy. She ate her breakfast and has been drinking fluids however has not eaten all day as she was little nauseated as well. She denies any diarrhea or abdominal pain or shortness of breath or chest pain. While she was coming back to the bed she fell to the ground and states she lost consciousness briefly. While she feels the hit her right side of her head and reports it is sore in that area. She did not have any abnormal limb movements or weakness in any arm or legs. She came to the ED for evaluation. She got a booster shot for her COVID yesterday. She also had started her 2 week course of her Revlimid for her underlying myeloma. She follows up with Dr. Finch since past few years and has been on treatment since then. She states she used to be 3 weeks on 1 week off course previously however was not able to tolerate that and hence was lowered to 2 weeks on 1 week off course now. She does report better blood counts are monitored as it tends to drift down after she starts on the course of treatment. She denies any other complaints today. See
== END 2020-10-22 12:13 ==
LOC: ANHED 21:15 → ANH2MED 10-19 00:09
PROVIDERS: Emergency Medicine Emergency Medical Services; Internal Medicine Hematology & Oncology; Nurse Practitioner Adult Health; Admitting Provider Internal Medicine; Emergency Provider Family Medicine; PCP Internal Medicine; Visit Provider Internal Medicine Nephrology
DX: R55 Syncope and collapse (principal); S00.83XA Contusion of other part of head, initial encounter; D61.818 Other pancytopenia; E86.0 Dehydration; R53.1 Weakness; D64.9 Anemia, unspecified; C90.00 Multiple myeloma not having achieved remission; E11.22 Type 2 diabetes mellitus with diabetic chronic kidney disease; E11.42 Type 2 diabetes mellitus with diabetic polyneuropathy; N39.0 Urinary tract infection, site not specified; W18.39XA Other fall on same level, initial encounter; N18.30 Chronic kidney disease, stage 3 unspecified; Z91.81 History of falling; Z79.82 Long term (current) use of aspirin; Z79.51 Long term (current) use of inhaled steroids; Z79.4 Long term (current) use of insulin
CPT/HCPCS: 36415; 70450; 71045; 80048; 80053; 81001; 82607; 82948; 83605; 83690; 84484; 85025; 85027; 85055; 85610; 85730; 86140; 87040; 87086; 87088; 87426; 93005; 94640; 96361; 96365; 96372; 96375; 96376; 97110; 97162; 97165; 97530; 99285; A9270; C9803; G0378; J0131; J0696; J1815; J2405; J3420; J7120

== ENCOUNTER 2021-04-15 09:43 | Observation (INO) | payer MEDICARE, MEDICAID, SELFPAY ==
[2021-04-15] VITALS (12 sets, daily range): BP systolic 131–151; BP diastolic 69–110; PULSE 92–122; RESP 16–20; TEMP 35.6–37.1; O2SAT 95–98; BMI 41.5
--- NOTE | ~2021-04-15 | XR_ITS ---
EXAMINATION: XR chest 1V portable DATE: 04/15/2021 10:19 INDICATION: Weakness. TECHNIQUE: A single frontal view of the chest was obtained. COMPARISON: Chest single view 10/18/2020, CT abdomen and pelvis 12/08/2019 FINDINGS: There is mild atelectasis at left lung base. No pleural effusion or pneumothorax. The heart size is normal. IMPRESSION: 1. Mild atelectasis at left lung base. Reviewed, dictated and finalized at location A. ANALYST REPORT WRITER
--- NOTE | 2021-04-15 10:04 | ECG_ITS ---
Measurements Intervals [place] Rate: 116 P: MO: 0 QRS: 265 QRSD: 145 T: 22 QT: 364 QTc: 506 Interpretive Statements ATRIAL FIBRILLATION WITH RAPID VENTRICULAR RESPONSE RIGHT AXIS DEVIATION [QRS AXIS > 100] WANDERING BASELINE ARTIFACT RIGHT BUNDLE BRANCH BLOCK [120+ ms QRS DURATION, UPRIGHT V1, 40+ ms S IN I/aVL/V4/V5/V6] ABNORMAL ECG COMPARED TO ECG 10/18/2020 17:32:19 ATRIAL FIBRILLATION NOW PRESENT Electronically Signed On 04-15-2021 11:11:19 RADIATION TECHNICIAN by Poli Aaron M.D.
--- NOTE | 2021-04-15 10:30 | ED.GENADULT ---
HPI - General Adult General Chief complaint: Weakness Stated complaint: Multiple Myeloma, Weakness. Recent chemo Time Seen by Provider: 04/15/21 10:02 Source: patient, EMS and RN notes reviewed Mode of arrival: EMS Limitations: no limitations History of Present Illness HPI narrative: Patient is 70 years old white female, woke up this morning to go to the [employer], felt shaky inside and generally weak outside. Patient denies any fever, chills, nausea, vomiting, diarrhea, constipation, urinary symptoms, coughing, chest pain or shortness of breath. Patient is fully vaccinated over 19. History of multiple myeloma. Last time was seen by her oncologist 3 days ago. Related Data Home Medications Medication Instructions Recorded Confirmed cholecalciferol (vitamin D3) 50,000 unit PO WEEKLY 02/12/19 04/10/21 cyanocobalamin (vitamin B-12) 1,000 mcg SUBCUT MONTHLY 02/12/19 04/10/21 isosorbide mononitrate 30 mg PO DAILY 02/12/19 04/10/21 losartan 100 mg PO HS 02/12/19 04/10/21 oxybutynin chloride 10 mg PO DAILY 02/12/19 04/10/21 pantoprazole 40 mg PO QA 02/12/19 04/10/21 pregabalin [Lyrica] 75 mg PO DAILY 02/12/19 04/10/21 ferrous sulfate 650 mg PO DAILY 08/03/19 04/10/21 albuterol sulfate [ProAir HFA] 2 puff INHALATION Q4H PRN 12/09/19 04/10/21 chlorthalidone 25 mg PO DAILY 12/09/19 04/10/21 sertraline [Zoloft] 50 mg PO HS 12/09/19 04/10/21 colchicine 0.6 mg PO DAILY PRN 05/23/20 04/10/21 Dulera 2 puff INHALATION BID 10/18/20 04/10/21 Spiriva Respimat 2 puff INHALATION DAILY 10/18/20 04/10/21 Tresiba U-100 Insulin 94 unit SUBCUT HS 10/18/20 04/10/21 albuterol sulfate 0.63 mg INHALATION Q6H PRN 10/18/20 04/10/21 allopurinol 200 mg PO HS 10/18/20 04/10/21 aspirin 81 mg PO DAILY 10/18/20 04/10/21 cetirizine [Zyrtec] 10 mg PO DAILY 10/18/20 04/10/21 icosapent ethyl [Vascepa] 2 g PO BID 10/18/20 04/10/21 tramadol 100 mg PO DAILY PRN 10/20/20 04/10/21 magnesium oxide 400 mg PO BID 02/13/21 04/10/21 calcitriol 0.25 mcg PO DAILY 04/10/21 04/10/21 nifedipine 60 mg PO DAILY 04/10/21 04/10/21 Allergies Allergy/AdvReac Type Severity Reaction Status Date / Time celecoxib Allergy Intermediate TACHYCARDIA Verified 03/13/21 11:32 ibuprofen Allergy Unknown Other Verified 03/13/21 11:32 iodine Allergy Unknown Other Verified 03/13/21 11:32 midazolam Allergy Unknown Other Verified 03/13/21 11:32 Penicillins Allergy Unknown Other Verified 03/13/21 11:32 Contrast Media Allergy Intermediate Hives / Uncoded 03/13/21 11:32 Red Face MIDAZOLAM HCL Allergy Unknown AMNESIA Uncoded 03/13/21 11:32 AFTER SURGERY Review of Systems Review of Systems: CONSTITUTIONAL: Denies fever, chills, or sweats. EYES: Denies visual changes, redness, or discharge. ENT: Denies rhinorrhea, congestion, sore throat, or otalgia. CARDIOVASCULAR: Denies chest pain, palpitations, or edema. RESPIRATORY: Denies cough or dyspnea. GASTROINTESTINAL: Denies abdominal pain, nausea, vomiting, or diarrhea. GENITOURINARY: Denies dysuria or hematuria. SKIN: Denies rash or itching. MUSCULOSKELETAL: Denies back pain, joint pain, or myalgia. NEUROLOGIC: Denies headache, numbness, or weakness. PSYCHIATRIC: Denies anxiety or depression. [facility] Past Medical History Medical History Anemia Diabetes Light chain myeloma Family History Family History Mother Hypertension, Onset Age: 86 Family history of elevated blood lipids, Onset Age: 86 Patient's mother is Grandparent Cerebrovascular accident, Onset Age: 76 Diabetes mellitus, Onset Age: 84 Father Family history of coronary artery disease, Onset Age: 49 Patient's father is Social History Social History Smoking status: Never smoker Alcohol intake: never Substance use: never Gender identity (if verbalized by the patient): Female S
[2021-04-15 10:33] LABS: Basophils Percent Auto 0.7 % (0.2-1.2); Eosinophils Absolute Auto 0.5 K/mm3 (0-0.3); Eosinophils Percent Auto 11.2 % (0-4.4); Hematocrit 34.8 % (37.0-47.0); Hemoglobin 10.9 g/dL (12.0-15.0); Immature Granulocyte Absolute 0.07 K/mm3 (0.00-0.031); Immature Granulocyte Percent A 1.7 % (0-0.5); Lymphocytes Absolute Auto 0.76 K/mm3 (0.9-3.2); Lymphocytes Percent Auto 18.1 % (18.3-44.2); Mean Corpuscular HGB Conc 31.3 g/dl (32-36); Mean Corpuscular Hemoglobin 30.3 pg (26-34); Mean Corpuscular Volume 96.7 fl (80-100); Mean Platelet Volume 11.3 fl (7.4-10.4); Monocytes Absolute Auto 0.3 K/mm3 (0.1-0.6); Monocytes Percent Auto 7.6 % (2.6-8.5); Neutrophils Absolute Auto 2.5 K/mm3 (1.3-6.7); Neutrophils Percent Auto 60.7 % (45.5-73.1); Platelet Count Result 87 k/mm3 (150-375); Red Cell Distribution Width 14.2 % (11.5-14.5); White Blood Count 4.2 K/mm3 (4.5-10.0)
[2021-04-15 11:21] LABS: Alanine Aminotransferase 13 U/L (4-35); Albumin Level 3.6 g/dL (3.5-5.1); Alkaline Phosphatase 106 U/L (38-126); Anion Gap 8 mmol/L (8-16); Aspartate Amino Transferase 17 U/L (14-36); Bilirubin,Total 0.5 mg/dL (0.2-1.3); Blood Urea Nitrogen 25 mg/dL (7-17); Calcium 8.8 mg/dL (8.4-10.2); Carbon Dioxide 25 mmol/L (22-30); Chloride 105 mmol/L (98-107); Estimated CRCL calculation 43 ml/min; Estimated Glomerular Filt Rate 37; Glucose 188 mg/dL (65-110); Potassium 4.6 mmol/L (3.4-5.0); Sodium 138 mmol/L (137-145)
[2021-04-15 11:31] LABS: Add Urine Microscopic? YES; Appearance Urine Clear (Clear); Bilirubin Urine Negative (Negative); Blood Urine 1+ (Negative); Color Urine Straw (Yellow); Glucose Urine UA 1+ mg/dL (Negative); Ketones Urine Negative (Negative); Leukocyte Esterase Ur 1+ LEU/UL (Negative); Mucus Urine Rare /lpf; Nitrate Urine Negative (Negative); Protein Urine 1+ mg/dL (Negative); RBC Urine 0-2 /hpf (0-2); Specific Grav Ur 1.011 (1.001-1.035); Squamous Epithelial Cell Urine Occasional /hpf (Few); Urobilinogen Urine Negative mg/dL (<2.0)
--- NOTE | 2021-04-15 13:46 | ECG_ITS ---
Measurements Intervals [place] Rate: 119 P: [place]: 0 QRS: 259 QRSD: 147 T: 39 QT: 358 QTc: 504 Interpretive Statements ATRIAL FIBRILLATION WITH RAPID VENTRICULAR RESPONSE MARKED RIGHT AXIS DEVIATION [QRS AXIS > 100] RIGHT BUNDLE BRANCH BLOCK [120+ ms QRS DURATION, UPRIGHT V1, 40+ ms S IN I/aVL/V4/V5/V6] ABNORMAL ECG COMPARED TO ECG 04/15/2021 10:19:03 NO SIGNIFICANT CHANGES Electronically Signed On 04-16-2021 13:52:57 FINANCIAL ECONOMIST by Poli Aaron M.D.
[2021-04-15] MEDS: ENOXAPARIN 120 MG/0.8 ML SYRINGE SUB-Q (14:49)
[2021-04-15] MEDS: dilTIAZem HCl INJ 25 MG/5 ML VIAL 10 MG IV PUSH (14:50)
[2021-04-15] MEDS: dilTIAZem 100 MG/100 ML 100 MG/100 ML BAG IV CONT (14:51)
[2021-04-15 14:58] LABS: Troponin I 0.024 ng/mL (0.000-0.034)
--- NOTE | 2021-04-15 16:14 | ADMGEN ---
This patient, Jaimie Nix, was admitted to IMU Room [id number]. Patient/family oriented to hospital policies and general routines including ID bracelet, bed and alarms, visiting hours, pain management, procedures, bathroom and other care routines, personal items, smoking policy, room service/diet, and visiting hours. Information on how to activate the Rapid Response Team has been discussed. Patient/Family are encouraged to report perceived risks to care and to ask questions if they do not understand what they are told or what they should do.
--- NOTE | 2021-04-15 17:00 | PM.IMHP ---
H&P: HPI History of Present Illness Date/Time: 04/15/21 17:00 Chief Complaint: Weakness. Narrative: This is a pleasant 70-year-old female with hypertension, dyslipidemia, multiple myeloma, chronic kidney disease, hypertension, coronary artery disease, diabetes, sleep apnea, and other comorbidities who presented to the emergency department from home for evaluation of weakness. While in the shower today she began to feel shaky and weak and when she got out of the shower she was very lightheaded and felt as though she was going to pass out. She had a similar occurrence on Friday but it was very brief. She has felt a bit more tired since that time, however. On arrival to the emergency department she was found to be in atrial fibrillation with rapid ventricular response which is a new diagnosis for her. She does not necessarily feel her heart racing and she has not noticed palpitations or chest discomfort. She did feel mildly short of breath and nauseated with the symptoms this morning but that has since passed. Currently she is on a Cardizem drip with improvement in her rate. Patient indicates to me that she had been on diltiazem for many years however within the last several weeks she was switched to nifedipine due to issues with difficult to control blood pressures. To her knowledge she had has no history of cardiac dysrhythmia. Review of Systems Review of Systems: Twelve systems were reviewed. No fever or chills. She endorses an occasional dry cough but nothing significant. No cold or flu symptoms. No sick contacts. She has not had exertional chest pain. No orthopnea, PND, or significant lower extremity edema. She denies nausea and vomiting. No dysuria hematuria. It is not unusual for her to have diarrhea when taking her oral chemotherapy for multiple myeloma. Glucose has been well controlled. Except as documented, all other systems were reviewed and are negative. [facility] Past Medical History Medical History (Updated 04/15/21 @ 16:27 by Ramya Raymond PA-C) Chronic anemia Chronic kidney disease, stage 3 Coronary artery disease Degenerative disc disease Dyslipidemia Gastric polyp Gastroesophageal reflux disease Gout History of MRSA infection Hypertension Insulin dependent type 2 diabetes mellitus Lichen sclerosus Macular degeneration Mixed stress and urge urinary incontinence Multiple myeloma Obstructive sleep apnea on CPAP Osteoarthritis Right bundle branch block Surgical History Surgical History (Updated 04/15/21 @ 16:25 by Ramya Raymond PA-C) History of arthroscopy of left knee History of bilateral knee arthroplasty History of bladder surgery Status post sling and InterStim. History of cardiac catheterization History of cataract extraction History of cholecystectomy History of coronary artery stent placement History of spinal surgery x4 Status post bilateral foot surgery Bone spur removal. Family History Family History Mother Hypertension, Onset Age: 86 Family history of elevated blood lipids, Onset Age: 86 Patient's mother is Grandparent Cerebrovascular accident, Onset Age: 76 Diabetes mellitus, Onset Age: 84 Father Family history of coronary artery disease, Onset Age: 49 Patient's father is Social History Social History (Updated 04/15/21 @ 21:42 by Ramya Raymond PA-C) Social History: Surrogate decision maker: Kristine Tolliver, sister. Code status: Full code. Smoking status: Never smoker Second hand tobacco smoke exposure: No Alcohol intake: unknown Substance use: never Substance use type: does not use Meds Home Medications and Allergies Home Medications Medication Instructions Recorded Confirmed Type cholecalciferol (vitamin D3) 50,000 unit PO WEEKLY 02/12/19 04/15/21 History cyanocobalamin (vitamin B-12) 1,000 mcg SUBCUT MONTHLY 02/12/19 04/15/21 History isosorbide
[2021-04-15 17:26] LABS: Troponin I 0.026 ng/mL (0.000-0.034)
[2021-04-15 19:38] LABS: Glucose Point of Care 186 mg/dl (65-105)
--- NOTE | 2021-04-15 19:41 | PCRCNOTE ---
Pt's home CPAP brought in and checked by [employer]. Signed release form obtained and filed in pt's chart. 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 Pt states that she does not bleed in supplemental O2 night.
[2021-04-15] MEDS: WATER FOR IRRIGATION, STERILE 1,000 ML BOTTLE 1000 ML (19:42)
[2021-04-15 20:33] LABS: Troponin I 0.028 ng/mL (0.000-0.034)
[2021-04-15 22:12] LABS: Hemoglobin A1C 7.2 % (<5.7)
[2021-04-16] VITALS (21 sets, daily range): BP systolic 114–161; BP diastolic 64–94; PULSE 74–115; RESP 14–18; TEMP 35.3–36.8; O2SAT 95–100
[2021-04-16] MEDS: dilTIAZem 100 MG/100 ML 100 MG/100 ML BAG 10 MG IV CONT (03:13)
[2021-04-16 05:14] LABS: Alanine Aminotransferase 12 U/L (4-35); Albumin Level 3.3 g/dL (3.5-5.1); Alkaline Phosphatase 80 U/L (38-126); Anion Gap 10 mmol/L (8-16); Aspartate Amino Transferase 27 U/L (14-36); Bilirubin,Total 0.7 mg/dL (0.2-1.3); Blood Urea Nitrogen 25 mg/dL (7-17); Calcium 8.3 mg/dL (8.4-10.2); Carbon Dioxide 18 mmol/L (22-30); Chloride 106 mmol/L (98-107); Estimated CRCL calculation 46 ml/min; Estimated Glomerular Filt Rate 40; Glucose 176 mg/dL (65-110); Magnesium 1.4 mg/dL (1.6-2.3); Potassium 4.6 mmol/L (3.4-5.0); Sodium 134 mmol/L (137-145)
[2021-04-16 05:16] LABS: Hematocrit 35.1 % (37.0-47.0); Mean Corpuscular HGB Conc 31.3 g/dl (32-36); Mean Corpuscular Hemoglobin 30.9 pg (26-34); Mean Corpuscular Volume 98.6 fl (80-100); Mean Platelet Volume 11.6 fl (7.4-10.4); Platelet Count Result 80 k/mm3 (150-375); Red Blood Count 3.56 M/mm3 (4.2-5.4); Red Cell Distribution Width 14.4 % (11.5-14.5); White Blood Count 4.7 K/mm3 (4.5-10.0)
--- NOTE | 2021-04-16 06:09 | ECG_ITS ---
Measurements Intervals [place] Rate: 101 P: [place]: 0 QRS: 268 QRSD: 136 T: 39 QT: 413 QTc: 537 Interpretive Statements ATRIAL FLUTTER WITH RAPID VENTRICULAR RESPONSE RIGHT AXIS DEVIATION [QRS AXIS > 100] RIGHT BUNDLE BRANCH BLOCK [120+ ms QRS DURATION, UPRIGHT V1, 40+ ms S IN I/aVL/V4/V5/V6] ABNORMAL ECG COMPARED TO ECG 04/15/2021 13:56:57 ATRIAL FLUTTER HAS REPLACED ATRIAL FIBRILLATION Electronically Signed On 04-16-2021 14:07:53 CERTIFIED MEDICAL TECHNICIAN by Poli Aaron M.D.
--- NOTE | 2021-04-16 08:34 | PM.IMPN ---
Progress Note: A&P Assessment and Plan (1) Atrial fibrillation with rapid ventricular response: Code(s): I48.91 - Unspecified atrial fibrillation Status: Acute Assessment and Plan: Patient presents with weakness and feeling shaky. She was found to have atrial fibrillation and atrial flutter. Currently on a diltiazem drip at 10 milligrams/hour. [id number] = 4. Lovenox 1mg/kg once given in the ED. Echo ordered. Cardiology consulted. Will hold on resuming her antihypertensive medications but instead add metoprolol p.o. today. Advanced oral medications to control rate. Wean diltiazem drip as able. She denies any bleeding risk her history of acute blood loss. She does have chronic anemia from her multiple myeloma. Will start Eliquis. (2) Multiple myeloma: Code(s): C90.00 - Multiple myeloma not having achieved remission Status: Acute Assessment and Plan: Patient of Dr. Finch, on oral chemotherapy. Continue to follow. (3) Insulin dependent type 2 diabetes mellitus: Code(s): E11.9 - Type 2 diabetes mellitus without complications; Z79.4 - prison (current) use of insulin Status: Acute Assessment and Plan: A1c 7.0. The patient's blood glucose was reviewed on 04/16. Glucose remains well controlled despite not receiving Tresiba 94 units last evening. Continue AccuCheks covering with sliding scale. Hypoglycemia protocol available as needed. Verify home medications. Continue to follow. (4) Chronic kidney disease, stage 3: Code(s): N18.30 - Chronic kidney disease, stage 3 unspecified Status: Acute Assessment and Plan: Baseline creatinine ranges from 1.2 to 2.2 last year. Creatinine 1.4 admission most likely at baseline. Slightly better today. Bicarb noted at 18 but normal gap. Continue to follow closely. (5) Hypertension: Code(s): I10 - Essential (primary) hypertension Status: Acute Assessment and Plan: Patient's blood pressure was reviewed on 04/16 Blood pressure remains mildly elevated above goal. As above. (6) Obstructive sleep apnea on CPAP: Code(s): G47.33 - Obstructive sleep apnea (adult) (pediatric); Z99.89 - Dependence on other enabling machines and devices Status: Acute Assessment and Plan: CPAP was provided and patient tolerated CPAP overnight. (7) Coronary artery disease: Code(s): I25.10 - Atherosclerotic heart disease of [place] coronary artery without angina pectoris Status: Acute Assessment and Plan: Patient has a history of coronary disease status post stent in 2015. She follows with Dr. Christina. Unclear why she is not on a statin. Resume aspirin. Resume Imdur. (8) Chronic anemia: Code(s): D64.9 - Anemia, unspecified Status: Acute Assessment and Plan: Baseline hemoglobin mostly running 8-10 range. Hemoglobin here is closer to 11. Continue to follow. Monitor closely on Eliquis (9) Thrombocytopenia: Code(s): D69.6 - Thrombocytopenia, unspecified Status: Acute Assessment and Plan: Patient with chronic thrombocytopenia most likely related to her multiple myeloma. Platelet level has been running 80-130K range. Patient is in the low level of her range currently. Continue to follow closely. Subjective Date/time seen: 04/16/21 08:34 Interval history: 70yo female with hx of CAD, DM and multiple myeloma here for weakness and found to have new onset AFib. Patient was feeling well until the morning of admission when she felt weak and shaky. She has never had this before. No palpitations or chest pain. She has history of coronary disease and stent placement in 2015. Most recent heart catheterization was 1 year ago which was ?okay?. She follows with Dr. Christina at [facility]. Currently she feels better overall but does still feel tired and weak. Exam Narrative: AF 97.4 133/87 79 18 99% ra Gen - NARD Chest
[2021-04-16 08:38] LABS: Glucose Point of Care 168 mg/dl (65-105)
[2021-04-16] MEDS: APIXABAN 5 MG TABLET PO ×2 (09:26→21:17)
[2021-04-16] MEDS: METOPROLOL TARTRATE 25 MG TABLET PO (09:26)
[2021-04-16] MEDS: PANTOPRAZOLE 40 MG TABLET PO (09:27)
[2021-04-16] MEDS: LORATADINE 5 MG TABLET PO (09:27)
[2021-04-16] MEDS: ISOSORBIDE MONONITRATE 30 MG TAB.ER.24H PO (09:27)
[2021-04-16] MEDS: ASPIRIN 81 MG CHEWABLE TABLET PO (09:27)
[2021-04-16] MEDS: MAGNESIUM SULF 1 GM/D5W 100 ML 1 GM/100 ML BAG IVPB (09:28)
[2021-04-16] MEDS: calcitrioL 0.25 MCG CAPSULE PO (09:28)
[2021-04-16] MEDS: MAGNESIUM OXIDE 400 MG TABLET PO ×2 (09:29→17:51)
[2021-04-16] MEDS: UMECLIDINIUM BROMIDE 62.5 MCG ELLIPTA 1 PUFF INHALATION (09:30)
[2021-04-16] MEDS: PREGABALIN (*CRX) 75 MG CAPSULE PO (09:43)
--- NOTE | 2021-04-16 10:11 | PM.CNCAR ---
Assessment and Plan Assessment and plan (1) Atrial fibrillation with rapid ventricular response: Code(s): I48.91 - Unspecified atrial fibrillation <JONO Mathews - Last Filed: 04/16/21 11:18> Status: Acute <JONO Mathews - Last Filed: 04/16/21 11:18> Assessment and Plan: New diagnosis of atrial fibrillation/atrial flutter. Currently rate controlled a diltiazem drip and oral metoprolol. She is asymptomatic. She has been started anticoagulation apixaban. Continue with rate control strategy. Decrease diltiazem to 5 mg/hr Increase metoprolol to 37.5 mg Q 8h. [id number] score is 4, a/c indicated. Continue apixaban 5 mg p.o. b.i.d. TSH normal Check echo health lead strategy of pursuing rhythm control with DCCV can be discussed with her transmission builder, Dr. Christina after she has been anticoagulated for the appropriate amount of time. <JONO Mathews - Last Filed: 04/16/21 11:18> (2) Coronary artery disease: Code(s): I25.10 - Atherosclerotic heart disease of [place] coronary artery without angina pectoris <JONO Mathews - Last Filed: 04/16/21 11:18> Status: Acute <JONO Mathews - Last Filed: 04/16/21 11:18> Assessment and Plan: Hx CAD with stent placed in 2014 per patient report. Followed by Dr. Christina. Continue ASA <JONO Mathews - Last Filed: 04/16/21 11:18> (3) Multiple myeloma: Code(s): C90.00 - Multiple myeloma not having achieved remission <JONO Mathews - Last Filed: 04/16/21 11:18> Status: Acute <JONO Mathews - Last Filed: 04/16/21 11:18> Assessment and Plan: Followed by Dr. Finch. <JONO Mathews - Last Filed: 04/16/21 11:18> (4) Obstructive sleep apnea on CPAP: Code(s): G47.33 - Obstructive sleep apnea (adult) (pediatric); Z99.89 - Dependence on other enabling machines and devices <JONO Mathews - Last Filed: 04/16/21 11:18> Status: Acute <JONO Mathews - Last Filed: 04/16/21 11:18> Assessment and Plan: Compliant with CPAP <JONO Mathews - Last Filed: 04/16/21 11:18> (5) Dyslipidemia: Code(s): E78.5 - Hyperlipidemia, unspecified <JONO Mathews - Last Filed: 04/16/21 11:18> Status: Acute <JONO Mathews - Last Filed: 04/16/21 11:18> Assessment and Plan: On Vascepa at home <JONO Mathews - Last Filed: 04/16/21 11:18> (6) Hypertension: Code(s): I10 - Essential (primary) hypertension <JONO Mathews - Last Filed: 04/16/21 11:18> Status: Acute <JONO Mathews - Last Filed: 04/16/21 11:18> Assessment and Plan: At goal. <JONO Mathews - Last Filed: 04/16/21 11:18> Additional Plan Attending Addendum: I have personally seen and examined this patient at bedside. I agree with the above documentation and plan of care as outlined. 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 She remains on diltiazem infusion and oral metoprolol and systemic anticoagulation. She remains symptomatic with shaking sensation and fatigue with any activity. She states at rest she is okay. She denies chest pain. Exam: Pleasant elderly female Appears somewhat fatigued NAD, A&Ox3, nonfocal neuro exam No JVD Lungs CTA bilaterally Cardio tachycardic, regularly irregular RRR, S1/S2, + systolic murmur Abd soft, NT/ND, +BS Ext no edema, clubbing, or cyanosis Plan of Care: Despite marginal heart rate control patient remains very weak and shaky she attributes to persistent atrial flutter. She does not feel currently. Therefore
[2021-04-16] MEDS: ONDANSETRON INJ 4 MG/2 ML VIAL IV PUSH (11:13)
[2021-04-16 12:06] LABS: Glucose Point of Care 242 mg/dl (65-105)
[2021-04-16] MEDS: INSULIN ASPART (*BKC) 100 UNITS/ML SUB-Q ×2 (12:13→17:48)
[2021-04-16] MEDS: dilTIAZem 100 MG/100 ML 100 MG/100 ML BAG IV CONT (12:16)
[2021-04-16 16:59] LABS: Glucose Point of Care 236 mg/dl (65-105)
[2021-04-16] MEDS: FLUTICASONE/SALMETEROL 230-21 MCG INHALER 1 PUFF 2 PUFF INHALATION (19:48)
[2021-04-16 19:52] LABS: Glucose Point of Care 193 mg/dl (65-105)
[2021-04-16] MEDS: SERTRALINE HCL 50 MG TABLET PO (21:17)
[2021-04-16] MEDS: METOPROLOL TARTRATE TAB 25 MG, METOPROLOL TARTRATE TAB 12.5 MG 37.5 MG PO (21:17)
[2021-04-16] MEDS: allopurinoL 100 MG TABLET 200 MG PO (21:18)
--- NOTE | 2021-04-16 21:47 | ECHO_ITS ---
Patient Info Name: Jaimie Nix Age: 70 years : 1950 Gender: Female Ht: 67 in Wt: 261 lbs BSA: 2.42 m2 HR: 101 bpm BP: 133 / 87 mmHg Heart Rhythm: Atrial Flutter Exam Date: 04/16/2021 9:25 AM Exam Location: [facility] Patient Status: Outpatient Admit Date: 04/15/2021 Staff Ordering Physician: Ramya Raymond PA-C Coating Mixer Tender: Cy Scott, NELSON, RT Attending Provider: Micki Brown MD Referring Physician: Segundo DELA CRUZ; Exam Type: CA echo doppler color flow Study Info Indications I48.1 - Persistent atrial fibrillation Complete two-dimensional, color flow and Doppler transthoracic echocardiogram is performed. Strain analysis performed. Summary 1. Complete two-dimensional, color flow and Doppler transthoracic echocardiogram is performed. 2. Left ventricular chamber dimension is normal. 3. Left ventricular systolic function is hyperdynamic, estimated at >70%. 4. There is moderately increased left ventricular wall thickness. 5. Right ventricular systolic function is reduced. TAPSE 1.6. 6. There is trace mitral valve regurgitation. 7. There is mild tricuspid valve regurgitation. 8. No pulmonary hypertension, estimated pulmonary arterial systolic pressure is 29 mmHg. Left Ventricle Left ventricular chamber dimension is normal. Left ventricular systolic function is hyperdynamic, estimated at >70%. There is moderately increased left ventricular wall thickness. The left ventricular diastolic function is abnormal. Global longitudinal strain is moderately elevated at -12 %. Right Ventricle Right ventricular chamber dimension is normal. Right ventricular systolic function is reduced. TAPSE 1.6. Left Atria Left atrial chamber dimension is mildly enlarged. Right Atria Right atrial chamber dimension is normal. Aortic Valve The aortic valve is probable trileaflet. There is mild aortic valve sclerosis. There is no aortic valve stenosis. There is no aortic valve regurgitation. Pulmonic Valve There is trace pulmonic regurgitation. Mitral Valve The mitral valve has normal leaflets. There is trace mitral valve regurgitation. The mitral valve annulus is mildly calcified. Tricuspid Valve The tricuspid valve leaflets are normal. There is mild tricuspid valve regurgitation. No pulmonary hypertension, estimated pulmonary arterial systolic pressure is 29 mmHg. Pericardium/Pleural The pericardium appears epicardial fat pad. There is small pericardial effusion. Inferior Vena Cava Normal inferior vena cava with >50% collapse upon inspiration consistent with normal right atrial pressure, 5 mmHg. Aorta The aortic root size at the sinus of Valsalva is normal. There is mild aortic atherosclerosis. Left Ventricular Outflow Tract Name Value Normal LVOT 2D LVOT Diameter 2.0 cm LVOT Doppler LVOT Peak Gradient 8 mmHg LVOT Mean Gradient 4 mmHg LVOT VTI 23 cm LVOT VTI/AV VTI Ratio 1.0 LVOT Stroke Volume 70 ml
[2021-04-16] MEDS: ACETAMINOPHEN 500 MG TABLET 1000 MG PO (22:45)
[2021-04-17] VITALS (11 sets, daily range): BP systolic 127–161; BP diastolic 69–86; PULSE 55–99; RESP 16–20; TEMP 35–36.9; O2SAT 99–100
[2021-04-17] MEDS: dilTIAZem 100 MG/100 ML 100 MG/100 ML BAG IV CONT (02:56)
[2021-04-17 04:32] LABS: Basophils Percent Auto 0.6 % (0.2-1.2); Eosinophils Absolute Auto 0.6 K/mm3 (0-0.3); Eosinophils Percent Auto 16.7 % (0-4.4); Hemoglobin 9.5 g/dL (12.0-15.0); Immature Granulocyte Absolute 0.02 K/mm3 (0.00-0.031); Immature Granulocyte Percent A 0.6 % (0-0.5); Immature Platelet Fraction Pct 5.5 % (0.9-11.2); Lymphocytes Percent Auto 27.8 % (18.3-44.2); Mean Corpuscular HGB Conc 32.8 g/dl (32-36); Mean Corpuscular Hemoglobin 30.9 pg (26-34); Mean Corpuscular Volume 94.5 fl (80-100); Mean Platelet Volume 10.9 fl (7.4-10.4); Monocytes Absolute Auto 0.4 K/mm3 (0.1-0.6); Monocytes Percent Auto 10.3 % (2.6-8.5); Neutrophils Absolute Auto 1.6 K/mm3 (1.3-6.7); Nucleated Red Blood Cells Perc 0.6 % (0.0-0.2); Platelet Count Result 63 k/mm3 (150-375); Red Blood Count 3.07 M/mm3 (4.2-5.4); Red Cell Distribution Width 14.4 % (11.5-14.5); White Blood Count 3.6 K/mm3 (4.5-10.0)
[2021-04-17 04:40] LABS: Albumin Level 3.4 g/dL (3.5-5.1); Anion Gap 6 mmol/L (8-16); Blood Urea Nitrogen 26 mg/dL (7-17); Calcium 8.6 mg/dL (8.4-10.2); Carbon Dioxide 26 mmol/L (22-30); Chloride 103 mmol/L (98-107); Estimated CRCL calculation 40 ml/min; Estimated Glomerular Filt Rate 34; Glucose 184 mg/dL (65-110); Magnesium 1.6 mg/dL (1.6-2.3); Phosphorus 5.2 mg/dL (2.5-4.5); Potassium 4.4 mmol/L (3.4-5.0); Sodium 135 mmol/L (137-145)
--- NOTE | 2021-04-17 08:08 | PM.PNCARD ---
Progress Note: A&P Assessment and Plan (1) Atrial fibrillation with rapid ventricular response: Code(s): I48.91 - Unspecified atrial fibrillation <JONO Mathews - Last Filed: 04/17/21 10:45> Status: Acute <JONO Mathews - Last Filed: 04/17/21 10:45> Assessment and Plan: New diagnosis of atrial fibrillation/atrial flutter. She converted to sinus rhythm overnight. Discontinue diltiazem Continue metoprolol 25mg q12h [id number] score is 4, a/c indicated. Continue apixaban 5 mg p.o. b.i.d. Echo showed normal LV systolic function, EF greater than 70%. RV systolic dysfunction is noted. Trace MR, mild TR. OK for discharge home today from a cardiac standpoint with short interval follow up with Dr. Christina <JONO Mathews - Last Filed: 04/17/21 10:45> (2) Coronary artery disease: Code(s): I25.10 - Atherosclerotic heart disease of [place] coronary artery without angina pectoris <JONO Mathews - Last Filed: 04/17/21 10:45> Status: Acute <JONO Mathews - Last Filed: 04/17/21 10:45> Assessment and Plan: Hx CAD with stent placed in 2015 per patient report. Followed by Dr. Christina. Continue ASA. <JONO Mathews - Last Filed: 04/17/21 10:45> (3) Multiple myeloma: Code(s): C90.00 - Multiple myeloma not having achieved remission <JONO Mathews - Last Filed: 04/17/21 10:45> Status: Acute <JONO Mathews - Last Filed: 04/17/21 10:45> Assessment and Plan: Followed by Dr. Finch. <JONO Mathews - Last Filed: 04/17/21 10:45> (4) Obstructive sleep apnea on CPAP: Code(s): G47.33 - Obstructive sleep apnea (adult) (pediatric); Z99.89 - Dependence on other enabling machines and devices <JONO Mathews - Last Filed: 04/17/21 10:45> Status: Acute <JONO Mathews - Last Filed: 04/17/21 10:45> Assessment and Plan: Compliant with CPAP <JONO Mathews - Last Filed: 04/17/21 10:45> (5) Dyslipidemia: Code(s): E78.5 - Hyperlipidemia, unspecified <JONO Mathews - Last Filed: 04/17/21 10:45> Status: Acute <JONO Mathews - Last Filed: 04/17/21 10:45> Assessment and Plan: On Vascepa at home <JONO Mathews - Last Filed: 04/17/21 10:45> (6) Hypertension: Code(s): I10 - Essential (primary) hypertension <JONO Mathews - Last Filed: 04/17/21 10:45> Status: Acute <JONO Mathews - Last Filed: 04/17/21 10:45> Assessment and Plan: At goal. <JONO Mathews - Last Filed: 04/17/21 10:45> Additional Plan Attending Addendum: I have personally seen and examined this patient at bedside. I agree with the above documentation and plan of care as outlined. -patient spontaneously converted to sinus rhythm overnight so BRITNI guided cardioversion canceled. Patient continued to feel unchanged overall. She feels shaking sensation is related to primidone being held. She denies palpitations, chest pain or significant shortness of breath at this time. She denies dizziness with ambulation. Exam: NAD, A&Ox3, nonfocal neuro exam No JVD Lungs CTA bilaterally Cardio RRR, S1/S2 Abd soft, NT/ND, +BS Ext no edema, clubbing, or cyanosis Plan of Care: Maintaining sinus rhythm. Discontinue diltiazem, continue metoprolol 25 mg twice daily. Due to interactions with primidone Xarelto and Eliquis relatively contraindicated and so will be avoided. Warfarin would be primary choice followed by Pradaxa 150 mg twice daily. Discussed at length with Dr. Griffin as there is interaction with current medications potentially reducing the effectiveness of systemic anticoagulation. This was explained in details the patient verbalized understanding but did not agree to warfarin and accepts the risks and wishes to take Pradaxa 150 mg twice daily continue
[2021-04-17 08:09] LABS: Glucose Point of Care 208 mg/dl (65-105)
--- NOTE | 2021-04-17 08:18 | PM.DS ---
DS: Admitting Diagnosis Discharge Date 04/17/21 Admitting Diagnosis Weakness DS: Discharge Diagnosis Discharge Diagnosis (1) Atrial fibrillation with rapid ventricular response: Code(s): I48.91 - Unspecified atrial fibrillation Status: Acute Assessment and Plan: Patient presents with weakness and feeling shaky. She was found to have atrial fibrillation and atrial flutter. She was started on a diltiazem drip. [id number] = 4. Lovenox 1mg/kg once given in the ED. Echo showing EF >70%, abnormal diastolic dysfunction, and reduced right ventricular systolic function. Cardiology was consulted and appreciate their input. Metoprolol added. She converted to normal sinus and diltiazem stopped. We started her on Eliquis but this interacts with Primidone as does Xarelto. After literature search and discussion with Pharmacy and Cardiology, the best approach would be Coumadin with 2nd recommendation of Pradaxa. Spoke with patient and discussed the risks/benefits of each options and recommended to her Coumadin. She decline Coumadin. She voiced understanding that Pradaxa carries a presumed slightly higher risk for CVA but is preferable to her over Coumadin. Will proceed with Pradaxa and recommend she continue the aspirin as well. (2) Multiple myeloma: Code(s): C90.00 - Multiple myeloma not having achieved remission Status: Acute Assessment and Plan: Patient of Dr. Finch, on oral chemotherapy. (3) Insulin dependent type 2 diabetes mellitus: Code(s): E11.9 - Type 2 diabetes mellitus without complications; Z79.4 - vocational rehabilitation teacher (current) use of insulin Status: Acute Assessment and Plan: A1c 7.0. The patient's blood glucose was monitored closely with AccuCheks covering with sliding scale. Hypoglycemia protocol was available as needed. (4) Chronic kidney disease, stage 3: Code(s): N18.30 - Chronic kidney disease, stage 3 unspecified Status: Acute Assessment and Plan: Baseline creatinine ranges from 1.2 to 2.2 last year. Creatinine 1.4 admission most likely at baseline and remained stable throughout her hospital course. (5) Hypertension: Code(s): I10 - Essential (primary) hypertension Status: Acute Assessment and Plan: Patient's blood pressure was monitored closely and medications adjusted accordingly (6) Obstructive sleep apnea on CPAP: Code(s): G47.33 - Obstructive sleep apnea (adult) (pediatric); Z99.89 - Dependence on other enabling machines and devices Status: Acute Assessment and Plan: CPAP was provided and patient tolerated CPAP at night. (7) Coronary artery disease: Code(s): I25.10 - Atherosclerotic heart disease of [place] coronary artery without angina pectoris Status: Acute Assessment and Plan: Patient has a history of coronary disease status post stent in 2015. She follows with Dr. Christina. Unclear why she is not on a statin. We resumed aspirin and Imdur. (8) Chronic anemia: Code(s): D64.9 - Anemia, unspecified Status: Acute Assessment and Plan: Baseline hemoglobin mostly running 8-10 range. Hemoglobin remained stable (9) Thrombocytopenia: Code(s): D69.6 - Thrombocytopenia, unspecified Status: Acute Assessment and Plan: Patient with chronic thrombocytopenia most likely related to her multiple myeloma. Platelet level has been running 80-130K range. Platelet count dropped to 63K. Repeat as outpatient DS: Summary Hospital Course Reason for hospitalization: 70yo female with hx of CAD, DM and multiple myeloma here for weakness and found to have new onset AFib. Please see H&P for details. Hospital Course: Please see above for details of hospital course. Status at Discharge Cognitive/behavioral status at discharge: Stable Time Spent with Patient Time attestation: Total time spent providing and/or coordinating discharge s
--- NOTE | 2021-04-17 08:19 | ECG_ITS ---
Measurements Intervals [place] Rate: 64 P: 31 [place]: 153 QRS: -73 QRSD: 145 T: -6 QT: 444 QTc: 461 Interpretive Statements SINUS RHYTHM LEFT ATRIAL ENLARGEMENT RIGHT BUNDLE BRANCH BLOCK LEFT ANTERIOR FASCICULAR BLOCK COMPARED TO ECG 04/16/2021 06:20:34 SINUS RHYTHM NOW PRESENT LEFT ANTERIOR FASCICULAR BLOCK NOW PRESENT Electronically Signed On 04-17-2021 9:46:28 UNIT EDUCATOR by Marcio Sheets M.D.
[2021-04-17] MEDS: MAGNESIUM SULF 2 GM/WATER 50ML 2 GM/50 ML BAG IVPB (08:35)
[2021-04-17] MEDS: ASPIRIN 81 MG CHEWABLE TABLET PO (08:38)
[2021-04-17] MEDS: METOPROLOL TARTRATE 25 MG TABLET PO (08:38)
[2021-04-17] MEDS: MAGNESIUM OXIDE 400 MG TABLET PO (08:38)
[2021-04-17] MEDS: ISOSORBIDE MONONITRATE 30 MG TAB.ER.24H PO (08:38)
[2021-04-17] MEDS: PANTOPRAZOLE 40 MG TABLET PO (08:38)
[2021-04-17] MEDS: UMECLIDINIUM BROMIDE 62.5 MCG ELLIPTA 1 PUFF INHALATION (08:39)
[2021-04-17] MEDS: calcitrioL 0.25 MCG CAPSULE PO (08:39)
[2021-04-17] MEDS: LORATADINE 5 MG TABLET PO (08:39)
[2021-04-17] MEDS: FLUTICASONE/SALMETEROL 230-21 MCG INHALER 1 PUFF 2 PUFF INHALATION (08:52)
--- NOTE | 2021-04-17 09:06 | PCPTNOTE ---
Patient refused treatment this session due to patient wanting to call her sister.
[2021-04-17] MEDS: INSULIN ASPART (*BKC) 100 UNITS/ML SUB-Q ×2 (09:08→11:48)
[2021-04-17 11:34] LABS: Glucose Point of Care 232 mg/dl (65-105)
[2021-04-17] MEDS: PREGABALIN (*CRX) 75 MG CAPSULE PO (11:45)
[2021-04-17] MEDS: MUPIROCIN 2% OINT 22 GM TUBE 1 APPLIC EACH NARE (11:46)
== END 2021-04-17 15:09 | disposition home or self-care (01) ==
LOC: ANHED 14:51 → ANHIMU 04-16 13:54
PROVIDERS: Physician Assistant; Admitting Provider Family Medicine; Emergency Provider Emergency Medicine; PCP Internal Medicine; Visit Provider Internal Medicine
DX: I48.91 Unspecified atrial fibrillation (principal); C90.00 Multiple myeloma not having achieved remission; R53.1 Weakness; D64.9 Anemia, unspecified; I12.9 Hypertensive chronic kidney disease with stage 1 through stage 4 chronic kidney disease, or unspecified chronic kidney disease; N18.30 Chronic kidney disease, stage 3 unspecified; E11.22 Type 2 diabetes mellitus with diabetic chronic kidney disease; I25.10 Atherosclerotic heart disease of native coronary artery without angina pectoris; D69.6 Thrombocytopenia, unspecified; E78.5 Hyperlipidemia, unspecified; K21.9 Gastro-esophageal reflux disease without esophagitis; M10.9 Gout, unspecified; L90.0 Lichen sclerosus et atrophicus; H35.30 Unspecified macular degeneration; G47.33 Obstructive sleep apnea (adult) (pediatric); N39.46 Mixed incontinence; I45.10 Unspecified right bundle-branch block; Z95.5 Presence of coronary angioplasty implant and graft; Z79.51 Long term (current) use of inhaled steroids; Z79.4 Long term (current) use of insulin; Z79.82 Long term (current) use of aspirin
CPT/HCPCS: 36415; 71045; 80053; 80069; 81001; 82948; 83036; 83735; 84443; 84484; 85025; 85027; 85055; 87081; 87086; 87088; 93005; 93306; 94640; 96365; 96366; 96372; 96375; 96376; 97110; 97161; 97165; 97530; 97535; 99285; A9270; G0378; J1650; J1815; J2405; J3475

== ENCOUNTER 2021-07-17 12:30 | Inpatient (IN) | payer MEDICARE, MEDICAID, SELFPAY ==
[2021-07-17] VITALS (15 sets, daily range): BP systolic 139–171; BP diastolic 46–115; PULSE 64–96; RESP 13–18; TEMP 36.6–37.9; O2SAT 95–100
--- NOTE | ~2021-07-17 | US_ITS ---
EXAMINATION: US renal BI DATE: 07/18/2021 08:26 INDICATION: Acute on chronic renal failure. TECHNIQUE: Multiple ultrasound grayscale images of the kidneys were obtained. COMPARISON: Ultrasound 12/09/2019, CT abdomen and pelvis 12/08/2019 FINDINGS: The right kidney measures 12.7 x 5.5 x 6.3 cm. The left kidney measures 11.7 x 5.2 x 4.9 cm. The kidn eys demonstrate normal parenchymal echogenicity. There is no hydronephrosis. The bladder is normal. IMPRESSION: 1. Normal kidneys. No hydronephrosis. Reviewed, dictated and finalized at location A.
--- NOTE | ~2021-07-17 | US_ITS ---
. EXAMINATION: US biopsy renal DATE: 07/31/2021 13:26 INDICATION: Acute renal failure. Multiple myeloma. TECHNIQUE: The procedure including the risks, benefits, and alternatives was discussed with the patie nt. Risks discussed included bleeding and infection. The patient understood the risks and agreed to p roceed. A timeout was performed to verify the patient's name, date of , and procedure to be p erformed. The skin overlying the left kidney was prepped and draped in usual sterile fashion. Anest hetic was administered with 1% lidocaine subcutaneously. An 18 gauge core biopsy needle was then use d to obtain 7 core biopsy specimens under continuous sonographic guidance. The entry site was cleaned and dressed. There were no immediate complications. FINDINGS: Ultrasound images demonstrate the needle in the kidney. IMPRESSION: 1. Ultrasound-guided random left kidney core needle biopsy. Reviewed, dictated and finalized at location A.
--- NOTE | ~2021-07-17 | XR_ITS ---
XR fl guide central line place 07/21/2021 08:41 Indication: Central venous catheter placement. Procedure: Single fluoroscopic view of the chest. 200 seconds of fluoroscopy. Comparison: Chest dated 04/15/2021 Findings: Large bore central venous catheter tip in the SVC near the cavoatrial junction. Impression: 1: Central venous catheter tip in the SVC near the cavoatrial junction. Reviewed, dictated and finalized at location A. Impression: 1: Central venous catheter tip in the SVC near the cavoatrial junction.
--- NOTE | ~2021-07-17 | CT_ITS ---
EXAMINATION: CT abdomen pelvis wo con DATE: 07/19/2021 13:24 INDICATION: Acute renal insufficiency TECHNIQUE: Computed tomography (CT) of the abdomen and pelvis was performed without intravenous contr ast. Automated exposure control and iterative reconstruction technique were employed. Exam dose: 144 0.51 mGy-cm total exam DLP. COMPARISON: 12/08/2019 CT abdomen pelvis FINDINGS: There are mild patchy bilateral basilar infiltrates, involving lingula and both lower lobes . Consider bilateral pneumonia, aspiration pneumonitis. Cardiomegaly. No pericardial or pleural effusion. Status post cholecystectomy. No hepatic, splenic, pancreatic, and adrenal or renal space-occupying ma ss lesion is evident. No bile duct or pancreatic duct dilatation. There is atherosclerotic obscuration but normal caliber of the abdominal aorta, iliac arteries. No in traperitoneal or retroperitoneal or pelvic mass lesion or adenopathy or ascites. There is soft tissue thickening at the anterior wall of the urinary bladder; likely due to underdiste ntion; no urinary bladder wall thickening was noted on 12/08/2019 CT abdomen pelvis examination.. Status post hysterectomy. Normal appendix. No bowel obstruction, bowel wall thickening, pneumatosis or intraperitoneal free air is evident. Small fat-containing umbilical hernia. There is a battery pack in the right gluteal area with neurotransmitter lead extending posteroanterio rly through a left sacral neural foramen. Prominent degenerative change at the apophyseal joints of the lumbar and lumbosacral area. There is m ultilevel degenerative disc disease, particularly severe at L2-3, L3-4 and L5-S1. Bilateral hip osteoarthritis. No suspicious osteolytic or osteoblastic lesions are noted. IMPRESSION: No urinary tract calculus or hydroureteronephrosis Status post cholecystectomy Status post hysterectomy Soft tissue prominence along the anterior urinary bladder wall is likely due to underdistention Reviewed, dictated and finalized at Location A. Reviewed, dictated and finalized at location A.
--- NOTE | ~2021-07-17 | XR_ITS ---
XR abdomen/kub 1V 07/19/2021 13:37 Indication: Acute renal insufficiency Procedure: KUB Comparison: No prior studies for comparison. Findings: Bowel gas pattern is nonobstructive. Moderate multilevel lumbar spondylosis. Pelvic stimula tor lead is present. There are cholecystectomy clips. No abnormal calcifications. Impression: 1: No acute abdominal abnormality. Reviewed, dictated and finalized at location B. Impression: 1: No acute abdominal abnormality.
--- NOTE | ~2021-07-17 | XR_ITS ---
XR chest 1V portable 07/21/2021 08:56 Indication: Status post large bore catheter insertion Procedure: AP portable chest Comparison: Comparison to multiple prior studies sequentially, with oldest reviewed study dated 11/11. Findings: There is a large bore right subclavian dialysis catheter, tip in the SVC. Cardiomegaly. Mil d elevation of the right diaphragm. No pneumothorax. No focal pneumonia, edema or effusion. Impression: 1: Right subclavian dialysis catheter tip in the SVC. Reviewed, dictated and finalized at location A. Impression: 1: Right subclavian dialysis catheter tip in the SVC.
--- NOTE | ~2021-07-17 | XR_ITS ---
XR cervical spine 4-5V 07/18/2021 11:30 Indication: Neck pain Procedure: 4 view cervical spine Comparison: No prior studies for comparison. Findings: There is degenerative anterolisthesis at C4-5 secondary to facet hypertrophy. There is adva nced multilevel uncinate and facet hypertrophy at all cervical levels. No acute fracture or traumatic malalignment. There is nuchal ligament ossification in the posterior soft tissues. No prevertebral s oft tissue abnormality. There is fusion at C5-6. There is advanced degenerative disc disease at C6-7. No prevertebral soft tissue swelling. Odontoid process is normal. Lateral masses normally aligned. Impression: 1: Severe cervical spondylosis. Reviewed, dictated and finalized at location B. Impression: 1: Severe cervical spondylosis.
--- NOTE | 2021-07-17 15:28 | ED.GENADULT ---
HPI - General Adult General Chief complaint: Recheck/Abnormal Lab/Rx Stated complaint: abnl labs - low hgb, poor kidney function Time Seen by Provider: 07/17/21 14:41 History of Present Illness HPI narrative: 70-year-old female with history of multiple myeloma following up with Dr. Finch presenting to the emergency department for evaluation of generalized weakness. Patient presented to the infusion center today but was unable to be treated with IV fluids. Patient was found to have SOLANGE and anemia. Patient states that she is typically transfused 2 hemoglobin of 10. Patient does have a history of stents in 2015. Patient has a history of paroxysmal A. fib. 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 Related Data Home Medications Medication Instructions Recorded Confirmed cholecalciferol (vitamin D3) 1,250 50,000 unit PO WEEKLY 02/12/19 07/17/21 mcg (50,000 unit) capsule cyanocobalamin (vitamin B-12) 1,000 mcg subcut MONTHLY 02/12/19 07/17/21 1,000 mcg/mL injection kit isosorbide mononitrate 30 mg 30 mg PO DAILY 02/12/19 07/17/21 tablet,extended release 24 hr losartan 50 mg tablet 100 mg PO HS 02/12/19 07/17/21 oxybutynin chloride 10 mg 10 mg PO DAILY 02/12/19 07/17/21 tablet,extended release 24 hr pantoprazole 40 mg tablet,delayed 40 mg PO QAM 02/12/19 07/17/21 release pregabalin 25 mg capsule (Lyrica) 75 mg PO DAILY 02/12/19 07/17/21 ferrous sulfate 325 mg (65 mg 650 mg PO DAILY 08/03/19 07/17/21 iron) tablet albuterol sulfate 90 mcg/actuation 2 puff inhalation Q4H PRN 12/09/19 07/17/21 aerosol inhaler (ProAir HFA) Shortness Of Breath sertraline 50 mg tablet (Zoloft) 50 mg PO HS 12/09/19 07/17/21 albuterol sulfate 0.63 mg/3 mL 0.63 mg inhalation Q6H PRN wheezes 10/18/20 07/17/21 solution for nebulization allopurinol 100 mg tablet 200 mg PO HS 10/18/20 07/17/21 aspirin 81 mg tablet 81 mg PO DAILY 10/18/20 07/17/21 cetirizine 10 mg tablet (Zyrtec) 10 mg PO DAILY PRN Allergy Symptoms 10/18/20 07/17/21 icosapent ethyl 1 gram capsule 2 g PO BID 10/18/20 07/17/21 (Vascepa) insulin degludec 100 unit/mL 94 unit subcut HS 10/18/20 07/17/21 subcutaneous solution (Tresiba U-100 Insulin) mometasone-formoterol HFA 200 2 puff inhalation BID 10/18/20 07/17/21 mcg-5 mcg/actuation aerosol inhaler (Dulera) tiotropium bromide 1.25 2 puff inhalation DAILY 10/18/20 07/17/21 mcg/actuation mist for inhalation (Spiriva Respimat) magnesium oxide 400 mg PO BID 02/13/21 07/17/21 calcitriol 0.25 mcg capsule 0.25 mcg PO DAILY 04/10/21 07/17/21 levocetirizine 5 mg tablet 5 mg PO DAILY 04/15/21 07/17/21 montelukast 10 mg tablet 10 mg PO DAILY PRN Allergy Symptoms 04/15/21 07/17/21 (Singulair) fenofibrate 54 mg tablet 54 mg PO DAILY 04/24/21 07/17/21 Allergies Allergy/AdvReac Type Severity Reaction Status Date / Time celecoxib Allergy Intermediate TACHYCARDIA Verified 07/17/21 10:54 ibuprofen Allergy Unknown Other Verified 07/17/21 10:54 iodine Allergy Unknown Other Verified 07/17/21 10:54 midazolam Allergy Unknown AMNESIA Verified 07/17/21 10:54 AFTER SURGERY Penicillins Allergy Unknown Other Verified 07/17/21 10:54 Contrast Media Allergy Intermediate Hives / Uncoded 07/17/21 10:54 Red Face Review of Systems Review of Systems: CONSTITUTIONAL: Increased generalized weakness EYES: Denies visual changes, redness, or discharge. ENT: Denies rhinorrhea, congestion, sore throat, or otalgia. CARDIOVASCULAR: Denies chest pain, palpitations, or edema. RESPIRATORY: Denies cough or dyspnea. GASTROINTESTINAL: Denies abdominal pain, nausea, vomiting, or diarrhea. GENITOURINARY: Denies dysuria or hematuria. SKIN: Denies rash or itching. MUSCULOSKELETAL: Denies back pain, joint pain, or myalgia. NEUROLOGIC: Worsening familial tremor REPLACED BY [facility] Past Medical History Medical History Chronic anemia Chronic kidney disease, stage 3 Coronary artery
--- NOTE | 2021-07-17 15:45 | PM.IMHP ---
H&P: HPI History of Present Illness Date/Time: 07/17/21 15:45 Chief Complaint: Abnormal labs. Narrative: This is a very pleasant 70-year-old female with hypertension, dyslipidemia, multiple myeloma, chronic kidney disease, hypertension, coronary artery disease, paroxysmal atrial fibrillation and flutter, diabetes, sleep apnea, and other comorbidities who presented to the emergency department for evaluation of abnormal labs. She is currently on oral chemotherapy for multiple myeloma and had recent labs drawn which showed a decrease in hemoglobin from baseline as well as worsening renal function. She was sent to the infusion center for blood transfusion and IV fluid rehydration, however her blood pressure was reportedly too high for them to give her a blood and she was sent to the ER. Blood pressure on arrival to the emergency department was 195/49. Hemoglobin and hematocrit were 7.6 and 24.4% respectively, with her hemoglobin being at least 1.5 g lower than what she typically runs. Creatinine today was 4.00 and it looks like her baseline runs around 2.00. With further questioning she does mention that her appetite has not been great for several days with decreased oral intake ?because I am just not hungry.? She has noticed a decrease in urine output as well. At the time my evaluation, she is resting comfortably and has no specific complaints. She denies fever, chills, sweats, cold and flu symptoms, chest pain, shortness of breath, vomiting, diarrhea, and dysuria. Review of Systems Review of Systems: Twelve systems were reviewed. Weight is stable. No syncope or presyncope. Endorses fatigue. She has had stiffness in her neck recently, he does not help but ice does help a bit. Denies NSAID use. No blurry vision, polydipsia, or polyuria. Except as documented, all other systems were reviewed and are negative. [facility] Past Medical History Medical History (Updated 07/17/21 @ 19:55 by Ramya Raymond PA-C) Chronic anemia Chronic kidney disease, stage 3 Coronary artery disease Degenerative disc disease Dyslipidemia Gastric polyp Gastroesophageal reflux disease Gout History of MRSA infection Hypertension Insulin dependent type 2 diabetes mellitus Lichen sclerosus Macular degeneration Mixed stress and urge urinary incontinence Multiple myeloma Obstructive sleep apnea on CPAP Osteoarthritis Paroxysmal atrial fibrillation Right bundle branch block Surgical History Surgical History History of arthroscopy of left knee History of bilateral knee arthroplasty History of bladder surgery Status post sling and InterStim. History of cardiac catheterization History of cataract extraction History of cholecystectomy History of coronary artery stent placement History of spinal surgery x4 Status post bilateral foot surgery Bone spur removal. Family History Family History Mother Hypertension, Onset Age: 86 Family history of elevated blood lipids, Onset Age: 86 Patient's mother is Grandparent Cerebrovascular accident, Onset Age: 76 Diabetes mellitus, Onset Age: 84 Father Family history of coronary artery disease, Onset Age: 49 Patient's father is Social History Social History Social History: Surrogate decision maker: Kristine Tolliver, sister. Code status: Full code. Smoking status: Never smoker Second hand tobacco smoke exposure: No Alcohol intake: never Substance use: never Substance use type: does not use Spiritual care concerns: Yes Meds Home Medications and Allergies Home Medications Medication Instructions Recorded Confirmed Type cholecalciferol (vitamin D3) 1,250 50,000 unit PO WEEKLY 02/12/19 07/17/21 History mcg (50,000 unit) capsule cyanocobalamin (vitamin B-12) 1,000 mcg subcut MON
[2021-07-17] MEDS: SODIUM CHLORIDE 0.9% IV 1,000 ML 250 ML IV CONT (16:30)
--- NOTE | 2021-07-17 16:30 | PC.NURSE ---
Patient's IV access was bent and unable to flush IV. Attempting to obtain new IV access.
[2021-07-17 16:42] LABS: Bacteria Urine Trace /hpf; Mucus Urine Rare /lpf; Squamous Epithelial Cell Urine Occasional /hpf (Few); WBC Clumps Urine Present /HPF; WBC Urine >75 /hpf
[2021-07-17 16:48] LABS: Appearance Urine Cloudy (Clear); Bilirubin Urine Negative (Negative); Blood Urine 1+ (Negative); Color Urine Yellow (Yellow); Glucose Urine UA Negative (Negative); Ketones Urine Negative (Negative); Leukocyte Esterase Ur 2+ LEU/UL (Negative); Nitrate Urine Negative (Negative); Protein Urine 2+ mg/dL (Negative); Urobilinogen Urine 0.2 mg/dL (<2.0); pH Urine 5.5 (5.0-9.0)
[2021-07-17 16:49] LABS: Add Urine Microscopic? YES
[2021-07-17] MEDS: traMADol HCL (*CRX) 50 MG TABLET PO (17:10)
--- NOTE | 2021-07-17 17:27 | PC.NURSE ---
Unable to obtain IV access. Multiple RNs attempted to start IV, unsuccessful at this time.
--- NOTE | 2021-07-17 17:56 | PC.NURSE ---
1000ml normal saline 250ml/hr paused. Blood transfusion started.
[2021-07-17] MEDS: SODIUM CHLORIDE 0.9% IV 250 ML 30 ML IV CONT (18:16)
--- NOTE | 2021-07-17 20:16 | ADMGEN ---
This patient, Jaimie Nix, was admitted to 3 Med Surg Room 302-01. Patient/family oriented to hospital policies and general routines including ID bracelet, bed and alarms, visiting hours, pain management, procedures, bathroom and other care routines, personal items, smoking policy, room service/diet, and visiting hours. Information on how to activate the Rapid Response Team has been discussed. Patient/Family are encouraged to report perceived risks to care and to ask questions if they do not understand what they are told or what they should do.
[2021-07-17] MEDS: SERTRALINE HCL 50 MG TABLET PO (21:57)
[2021-07-17] MEDS: METOPROLOL TARTRATE 25 MG TABLET PO (21:57)
[2021-07-17] MEDS: PRIMIDONE 50 MG TABLET 100 MG PO (21:59)
[2021-07-17] MEDS: INSULIN GLARGINE (LANTUS) 1,000 UNITS/10 ML VIAL 94 UNITS SUB-Q (22:31)
[2021-07-17 22:40] LABS: Glucose Point of Care 195 mg/dl (65-105)
[2021-07-17] MEDS: HYDROcodone/acetaminophen (*CRX) 5-325 MG TABLET 1 TAB PO (23:14)
[2021-07-18] VITALS (12 sets, daily range): BP systolic 139–169; BP diastolic 56–72; PULSE 54–87; RESP 16–18; TEMP 36.4–37.1; O2SAT 94–99
[2021-07-18] MEDS: OMEGA 3 POLYUNSAT FATTY ACIDS 1 GM CAP 2 GM PO ×2 (05:56→16:39)
[2021-07-18 06:07] LABS: Mean Corpuscular HGB Conc 32.1 g/dl (32-36); Mean Corpuscular Hemoglobin 29.5 pg (26-34); Mean Corpuscular Volume 91.8 fl (80-100); Mean Platelet Volume 11.9 fl (7.4-10.4); Platelet Count Result 71 k/mm3 (150-375); Red Blood Count 3.05 M/mm3 (4.2-5.4); Red Cell Distribution Width 15.9 % (11.5-14.5); White Blood Count 2.3 K/mm3 (4.5-10.0)
[2021-07-18 06:33] LABS: Alanine Aminotransferase 8 U/L (6-35); Albumin Level 3.4 g/dL (3.5-5.1); Alkaline Phosphatase 54 U/L (38-126); Anion Gap 10 mmol/L (8-16); Aspartate Amino Transferase 11 U/L (14-36); Bilirubin,Total 0.5 mg/dL (0.2-1.3); Blood Urea Nitrogen 39 mg/dL (7-17); Calcium 7.2 mg/dL (8.4-10.2); Carbon Dioxide 23 mmol/L (22-30); Chloride 108 mmol/L (98-107); Estimated CRCL calculation 13 ml/min; Estimated Glomerular Filt Rate 9; Glucose 64 mg/dL (65-110); Phosphorus 7.2 mg/dL (2.5-4.5); Potassium 3.7 mmol/L (3.4-5.0); Sodium 141 mmol/L (137-145)
[2021-07-18 08:14] LABS: Glucose Point of Care 73 mg/dl (65-105)
[2021-07-18] MEDS: UMECLIDINIUM BROMIDE 62.5 MCG ELLIPTA 1 PUFF INHALATION (08:34)
[2021-07-18] MEDS: FLUTICASONE/SALMETEROL 230-21 MCG INHALER 1 PUFF 2 PUFF INHALATION ×2 (08:34→19:37)
[2021-07-18] MEDS: HYDROcodone/acetaminophen (*CRX) 5-325 MG TABLET 1 TAB PO (09:52)
[2021-07-18] MEDS: PREGABALIN (*CRX) 25 MG CAPSULE 75 MG PO (09:52)
[2021-07-18] MEDS: METOPROLOL TARTRATE 25 MG TABLET PO ×2 (09:53→20:21)
[2021-07-18] MEDS: ISOSORBIDE MONONITRATE 30 MG TAB.ER.24H PO (09:53)
[2021-07-18] MEDS: MAGNESIUM OXIDE 400 MG TABLET PO ×2 (09:54→09:57)
[2021-07-18] MEDS: ASPIRIN 81 MG CHEWABLE TABLET PO (09:54)
[2021-07-18] MEDS: PANTOPRAZOLE 40 MG TABLET PO (09:54)
[2021-07-18] MEDS: MONTELUKAST SODIUM 10 MG TABLET PO (09:54)
[2021-07-18] MEDS: calcitrioL 0.25 MCG CAPSULE PO (09:54)
[2021-07-18] MEDS: LORATADINE 10 MG TABLET PO (09:55)
[2021-07-18] MEDS: PRIMIDONE 50 MG TABLET PO (09:55)
[2021-07-18] MEDS: LIDOCAINE 5% PATCH 2 PATCH TRANSDERM (10:03)
[2021-07-18] MEDS: DABIGATRAN ETEXILATE 150 MG CAPSULE PO (10:04)
[2021-07-18] MEDS: MAGNESIUM SULFATE 3GM/D5W100ML 3 GM/100 ML BAG IVPB (10:06)
--- NOTE | 2021-07-18 10:35 | PM.IMPN ---
Progress Note: A&P Assessment and Plan (1) Acute on chronic kidney failure: Code(s): N17.9 - Acute kidney failure, unspecified; N18.9 - Chronic kidney disease, unspecified Status: Acute Assessment and Plan: Etiology not entirely clear though may in part be due to dehydration given reports of poor oral intake over the past several days. She does have multiple myeloma which could also have precipitated the acute kidney injury. At this time will avoid nephrotoxic agents and cautiously hydrate overnight. Dr. Finch and the nephrologists were consulted by the ED physician and their input is appreciated. (2) Acute on chronic anemia: Code(s): D64.9 - Anemia, unspecified Status: Acute Assessment and Plan: Transfused to a stable hemoglobin. (3) Multiple myeloma: Code(s): C90.00 - Multiple myeloma not having achieved remission Status: Acute Assessment and Plan: Case discussed with Dr. Finch who recommends holding her oral chemotherapy at this time. (4) Insulin dependent type 2 diabetes mellitus: Code(s): E11.9 - Type 2 diabetes mellitus without complications; Z79.4 - technician terminal and repeater (current) use of insulin Status: Acute Assessment and Plan: Continue basal insulin. Initiate sliding scale insulin, Accu-Cheks, and hypoglycemic protocol. (5) Obstructive sleep apnea on CPAP: Code(s): G47.33 - Obstructive sleep apnea (adult) (pediatric); Z99.89 - Dependence on other enabling machines and devices Status: Acute Assessment and Plan: CPAP will be provided for the patient to use while hospitalized. (6) Hypertension: Code(s): I10 - Essential (primary) hypertension Status: Acute Assessment and Plan: Blood pressures were reviewed and her systolics have been running a bit high. Antihypertensives will be reviewed and resumed as appropriate. (7) Paroxysmal atrial fibrillation: Code(s): I48.0 - Paroxysmal atrial fibrillation Status: Acute Assessment and Plan: Currently sounds to be in a sinus rhythm. Additional Plan 07/18/2021 interval history: Patient is a 76-year-old female with history for multiple myeloma presented with complaint of generalized weakness her hemoglobin was 7.6 upon arrival patient was given 2 units of pack RBC, her hemoglobin is 9, patient states is feeling little better now however complains of pain in the neck, will apply Lidoderm patch, will continue Lyrica and Jarreau and to further evaluate with C-spine x-ray, her urine is suspicious for UTI, started the patient on ceftriaxone follow-up on urine and blood culture will also consult her oncologist for further recommendation, Subjective Date/time seen: 07/18/21 10:35 HPI-This is a very pleasant 70-year-old female with hypertension, dyslipidemia, multiple myeloma, chronic kidney disease, hypertension, coronary artery disease, paroxysmal atrial fibrillation and flutter, diabetes, sleep apnea, and other comorbidities who presented to the emergency department for evaluation of abnormal labs. She is currently on oral chemotherapy for multiple myeloma and had recent labs drawn which showed a decrease in hemoglobin from baseline as well as worsening renal function. She was sent to the infusion center for blood transfusion and IV fluid rehydration, however her blood pressure was reportedly too high for them to give her a blood and she was sent to the ER. Blood pressure on arrival to the emergency department was 195/49. Hemoglobin and hematocrit were 7.6 and 24.4% respectively, with her hemoglobin being at least 1.5 g lower than what she typically runs. Creatinine today was 4.00 and it looks like her baseline runs around 2.00. With further questioning she does mention that her appetite has not been great for several days with decreased oral intake ?because I am just not hungry.? She has noticed a decrease in urine output as well. At the time my evaluation, she is
[2021-07-18 12:18] LABS: Glucose Point of Care 117 mg/dl (65-105)
--- NOTE | 2021-07-18 12:44 | PDONCCN ---
HPI - Date of Consult Date/Time: 07/18/21 12:44 Requesting Physician: Micki Brown MD Primary Care Provider: Cesario Medrano, - Consult Narrative Reason for consult: Multiple myeloma Narrative: Jaimie Nix is a 70 year old female with history of multiple myeloma, chronic kidney stage 4 disease, hypertension, coronary artery disease and atrial fibrillation along with type 2 diabetes was sent to the ER from the office yesterday where she came in for Procrit injection. She was complaining of tiredness and fatigue along with shakiness. She has been complaining of neck pain. Denies any bleeding including melena hematochezia. Labs in the hospital showed elevated creatinine of 4.8 with significant anemia and hemoglobin was 7.6. She received 2 units of packed red blood cell. She is feeling better but remains slightly jittery. She is complaining of neck pain. Denies any bleeding and bruising. Review of Systems - Review of Systems All systems reviewed & are unremarkable except as noted in HPI and [facility] Medical History: Medical History (Last Updated 07/17/21 @ 19:55 by Ramya Raymond PA-C) Chronic anemia Chronic kidney disease, stage 3 Coronary artery disease Degenerative disc disease Dyslipidemia Gastric polyp Gastroesophageal reflux disease Gout History of MRSA infection Hypertension Insulin dependent type 2 diabetes mellitus Lichen sclerosus Macular degeneration Mixed stress and urge urinary incontinence Multiple myeloma Obstructive sleep apnea on CPAP Osteoarthritis Paroxysmal atrial fibrillation Right bundle branch block Surgical History: Surgical History (Last Reviewed 07/17/21 @ 19:49 by Ramya Raymond PA-C) History of arthroscopy of left knee History of bilateral knee arthroplasty History of bladder surgery Status post sling and InterStim. History of cardiac catheterization History of cataract extraction History of cholecystectomy History of coronary artery stent placement History of spinal surgery x4 Status post bilateral foot surgery Bone spur removal. Family History: Family History (Last Reviewed 07/17/21 @ 20:04 by Christina Henderson RN) Mother Hypertension, Onset Age: 86 Family history of elevated blood lipids, Onset Age: 86 Patient's mother is Grandparent Cerebrovascular accident, Onset Age: 76 Diabetes mellitus, Onset Age: 84 Father Family history of coronary artery disease, Onset Age: 49 Patient's father is - Social History Social History: Social History (Last Reviewed 07/17/21 @ 19:49 by Ramya Raymond PA-C) Alcohol Use: Alcohol intake: never Substance Use: Substance use: never Substance use type: does not use Others: Spiritual care concerns: Yes Smoking Status: Smoking status: Never smoker Second hand tobacco smoke exposure: No Meds Home Medications Medication Instructions Recorded Confirmed Type cholecalciferol (vitamin D3) 1,250 50,000 unit PO WEEKLY 02/12/19 07/17/21 History mcg (50,000 unit) capsule cyanocobalamin (vitamin B-12) 1,000 mcg subcut MONTHLY 02/12/19 07/17/21 History 1,000 mcg/mL injection kit isosorbide mononitrate 30 mg 30 mg PO DAILY 02/12/19 07/17/21 History tablet,extended release 24 hr losartan 50 mg tablet 100 mg PO HS 02/12/19 07/17/21 History oxybutynin chloride 10 mg 10 mg PO DAILY 02/12/19 07/17/21 History tablet,extended release 24 hr pantoprazole 40 mg tablet,delayed 40 mg PO QAM 02/12/19 07/17/21 History release pregabalin 25 mg capsule (Lyrica) 75 mg PO DAILY 02/12/19 07/17/21 History ferrous sulfate 325 mg (65 mg 650 mg PO DAILY 08/03/19 07/17/21 History iron) tablet albuterol sulfate 90 mcg/actuation 2 puff inhalation Q4H PRN 12/09/19 07/17/21 History aerosol inhaler (ProAir HFA) Shortness Of Breath sertraline 50 mg tablet (Zoloft) 50 mg PO HS 12/09/19 07/17/21 History albuterol s
[2021-07-18] MEDS: EPOETIN ALFA-EPBX 20,000 UNITS/ML VIAL 20000 UNITS SUB-Q (13:17)
[2021-07-18] MEDS: CYCLOBENZAPRINE HCL 10 MG TABLET PO ×2 (14:14→20:21)
[2021-07-18] MEDS: FERROUS SULFATE 324 MG TABLET 648 MG PO (14:15)
[2021-07-18] MEDS: HYDROcodone/acetaminophen (*CRX) 7.5-325 MG TABLET 1 TAB PO ×2 (14:15→20:28)
--- NOTE | 2021-07-18 14:53 | PM.CNOR ---
Assessment and Plan Assessment and plan (1) Cervical spondylosis with radiculopathy: Code(s): M47.22 - Other spondylosis with radiculopathy, cervical region Status: Acute Assessment and Plan: New patient evaluation for chief complaint neck pain with radiation into both arms. History, physical exam and radiographs reviewed with the patient. Moderate to severe cervical spondylosis. Discussed the condition, nature, etiology and course of natural history with the patient. May start conservative treatment ice and physical therapy. Patient is asked about cortisone injections. Injections contraindicated at this due to leukopenia and risk of infections. Also, injections performed as outpatient. Patient may consider once white count normal and on outpatient basis. (2) Acute neck pain: Code(s): M54.2 - Cervicalgia Status: Acute History of Present Illness HPI Consult date: 07/18/21 Requesting physician: Micki Brown MD Consult reason: neck pain Chief complaint: Neck pain Narrative: Patient admitted for anemia and renal failure. Complains of neck pain after fall last week hitting head. Previous neck stiffness and pain treated with cortisone injection many years ago. Now reports pain in the midline which radiates into both posterior shoulders and down the back of both arms. Also complains of loss of sensation left arm which is chronic. Review of Systems Constitutional: Constitutional: Denies fatigue, Denies lethargy and Reports weakness Eyes: Eyes: Denies change in vision ENT: Reports Normal hearing present Cardiovascular: Cardiovascular: Denies chest pain, Denies pedal edema, Denies leg edema and Denies palpitations Respiratory: Respiratory: Denies dyspnea and Denies dyspnea on exertion Gastrointestinal: Gastrointestinal: Reports diarrhea Genitourinary: Genitourinary: Denies hematuria, Denies nocturia and Denies urinary incontinence Musculoskeletal: Musculoskeletal: Reports arthralgias, Denies joint swelling, Reports neck pain, Reports numbness and Reports radiating pain into limb (Left arm) Integumentary/Breasts: Skin/Breast: Denies unusual bruising Neurologic: Denies Abnormal speech present, Denies abnormal gait, Denies headache(s) and Denies Other visual disturbances Psychiatric: Psychiatric: Denies anxiety and Denies depression Endocrine: Endocrine: Denies excessive sweating and Denies fatigue Hematologic/Lymphatic: Hematologic/Lymphatic: Denies easy bleeding and Denies easy bruising Allergic/Immunologic: Allergic/Immunologic: Denies GI upset with certain foods PMFSH Past Medical History Medical History (Updated 07/18/21 @ 15:00 by Oumar Taylor MD) Acute neck pain Cervical spondylosis with radiculopathy Chronic anemia Chronic kidney disease, stage 3 Coronary artery disease Degenerative disc disease Dyslipidemia Gastric polyp Gastroesophageal reflux disease Gout History of MRSA infection Hypertension Insulin dependent type 2 diabetes mellitus Lichen sclerosus Macular degeneration Mixed stress and urge urinary incontinence Multiple myeloma Obstructive sleep apnea on CPAP Osteoarthritis Paroxysmal atrial fibrillation Right bundle branch block Surgical History Surgical History History of arthroscopy of left knee History of bilateral knee arthroplasty History of bladder surgery Status post sling and InterStim. History of cardiac catheterization History of cataract extraction History of cholecystectomy History of coronary artery stent placement History of spinal surgery x4 Status post bilateral foot surgery Bone spur removal. Family History Family History Mother Hypertension, Onset Age: 86 Family history of elevated blood lipids, Onset Age: 86 Patient's mother is Grandparent Cerebrovascular accident, Onset Age: 76 Diabete
[2021-07-18 16:42] LABS: Glucose Point of Care 179 mg/dl (65-105)
[2021-07-18] MEDS: SERTRALINE HCL 50 MG TABLET PO (20:22)
[2021-07-18] MEDS: PRIMIDONE 50 MG TABLET 100 MG PO (20:24)
[2021-07-18] MEDS: INSULIN GLARGINE (LANTUS) 1,000 UNITS/10 ML VIAL 94 UNITS SUB-Q (20:30)
[2021-07-18 20:45] LABS: Glucose Point of Care 189 mg/dl (65-105)
[2021-07-19] VITALS (11 sets, daily range): BP systolic 125–172; BP diastolic 62–84; PULSE 57–82; RESP 18–20; TEMP 35.9–36.8; O2SAT 92–99
[2021-07-19] MEDS: HYDROcodone/acetaminophen (*CRX) 7.5-325 MG TABLET 1 TAB PO ×3 (02:19→18:16)
[2021-07-19] MEDS: OMEGA 3 POLYUNSAT FATTY ACIDS 1 GM CAP 2 GM PO ×2 (05:52→16:55)
[2021-07-19 06:17] LABS: Basophils Percent Auto 0.9 % (0.2-1.2); Eosinophils Absolute Auto 0.1 K/mm3 (0-0.3); Eosinophils Percent Auto 4.9 % (0-4.4); Hematocrit 26.7 % (37.0-47.0); Hemoglobin 8.6 g/dL (12.0-15.0); Immature Granulocyte Absolute 0.01 K/mm3 (0.00-0.031); Immature Granulocyte Percent A 0.4 % (0-0.5); Immature Platelet Fraction Pct 7.6 % (0.9-11.2); Lymphocytes Absolute Auto 0.73 K/mm3 (0.9-3.2); Lymphocytes Percent Auto 32.4 % (18.3-44.2); Mean Corpuscular HGB Conc 32.2 g/dl (32-36); Mean Corpuscular Hemoglobin 30.1 pg (26-34); Mean Corpuscular Volume 93.4 fl (80-100); Mean Platelet Volume 12.2 fl (7.4-10.4); Monocytes Absolute Auto 0.2 K/mm3 (0.1-0.6); Monocytes Percent Auto 7.1 % (2.6-8.5); Neutrophils Absolute Auto 1.2 K/mm3 (1.3-6.7); Neutrophils Percent Auto 54.3 % (45.5-73.1); Nucleated Red Blood Cells Perc 1.3 % (0.0-0.2); Platelet Count Result 65 k/mm3 (150-375); Red Blood Count 2.86 M/mm3 (4.2-5.4); Red Cell Distribution Width 15.8 % (11.5-14.5); White Blood Count 2.3 K/mm3 (4.5-10.0)
[2021-07-19 06:33] LABS: Alanine Aminotransferase 8 U/L (6-35); Albumin Level 3.3 g/dL (3.5-5.1); Alkaline Phosphatase 51 U/L (38-126); Anion Gap 12 mmol/L (8-16); Aspartate Amino Transferase 14 U/L (14-36); Bilirubin,Total 0.4 mg/dL (0.2-1.3); Blood Urea Nitrogen 50 mg/dL (7-17); Calcium 7.3 mg/dL (8.4-10.2); Carbon Dioxide 22 mmol/L (22-30); Chloride 103 mmol/L (98-107); Estimated CRCL calculation 10 ml/min; Estimated Glomerular Filt Rate 6; Glucose 88 mg/dL (65-110); Magnesium 1.6 mg/dL (1.6-2.3); Potassium 4.7 mmol/L (3.4-5.0); Sodium 137 mmol/L (137-145)
[2021-07-19 07:54] LABS: Glucose Point of Care 69 mg/dl (65-105)
[2021-07-19] MEDS: METOPROLOL TARTRATE 25 MG TABLET PO ×2 (08:59→20:48)
[2021-07-19] MEDS: MAGNESIUM OXIDE 400 MG TABLET PO (09:00)
[2021-07-19] MEDS: ASPIRIN 81 MG CHEWABLE TABLET PO (09:00)
[2021-07-19] MEDS: DABIGATRAN ETEXILATE 150 MG CAPSULE PO ×2 (09:00→16:55)
[2021-07-19] MEDS: ISOSORBIDE MONONITRATE 30 MG TAB.ER.24H PO (09:00)
[2021-07-19] MEDS: CYCLOBENZAPRINE HCL 10 MG TABLET PO ×2 (09:00→20:48)
[2021-07-19] MEDS: PREGABALIN (*CRX) 25 MG CAPSULE 75 MG PO (09:00)
[2021-07-19] MEDS: PANTOPRAZOLE 40 MG TABLET PO (09:00)
[2021-07-19] MEDS: calcitrioL 0.25 MCG CAPSULE PO (09:00)
[2021-07-19] MEDS: PRIMIDONE 50 MG TABLET PO (09:01)
[2021-07-19] MEDS: FENOFIBRATE,MICRONIZED 48 MG TABLET PO (09:01)
[2021-07-19] MEDS: FLUTICASONE/SALMETEROL 230-21 MCG INHALER 1 PUFF 2 PUFF INHALATION ×2 (09:03→20:22)
[2021-07-19 11:15] LABS: Glucose Point of Care 196 mg/dl (65-105)
[2021-07-19] MEDS: SODIUM CHLORIDE 0.9% IV 1,000 ML 100 ML IV CONT (11:48)
--- NOTE | 2021-07-19 13:11 | PM.IMPN ---
Progress Note: A&P Assessment and Plan (1) Acute on chronic kidney failure: Code(s): N17.9 - Acute kidney failure, unspecified; N18.9 - Chronic kidney disease, unspecified Status: Acute Assessment and Plan: Etiology not entirely clear though may in part be due to dehydration given reports of poor oral intake over the past several days. She does have multiple myeloma which could also have precipitated the acute kidney injury. At this time will avoid nephrotoxic agents and cautiously hydrate overnight. Dr. Finch and the nephrologists were consulted by the ED physician and their input is appreciated. (2) Acute on chronic anemia: Code(s): D64.9 - Anemia, unspecified Status: Acute Assessment and Plan: Transfused to a stable hemoglobin. (3) Multiple myeloma: Code(s): C90.00 - Multiple myeloma not having achieved remission Status: Acute Assessment and Plan: Case discussed with Dr. Finch who recommends holding her oral chemotherapy at this time. (4) Insulin dependent type 2 diabetes mellitus: Code(s): E11.9 - Type 2 diabetes mellitus without complications; Z79.4 - manager terminal (current) use of insulin Status: Acute Assessment and Plan: Continue basal insulin. Initiate sliding scale insulin, Accu-Cheks, and hypoglycemic protocol. (5) Obstructive sleep apnea on CPAP: Code(s): G47.33 - Obstructive sleep apnea (adult) (pediatric); Z99.89 - Dependence on other enabling machines and devices Status: Acute Assessment and Plan: CPAP will be provided for the patient to use while hospitalized. (6) Hypertension: Code(s): I10 - Essential (primary) hypertension Status: Acute Assessment and Plan: Blood pressures were reviewed and her systolics have been running a bit high. Antihypertensives will be reviewed and resumed as appropriate. (7) Paroxysmal atrial fibrillation: Code(s): I48.0 - Paroxysmal atrial fibrillation Status: Acute Assessment and Plan: Currently sounds to be in a sinus rhythm. Additional Plan 07/18/2021 interval history: Patient is a 76-year-old female with history for multiple myeloma presented with complaint of generalized weakness her hemoglobin was 7.6 upon arrival patient was given 2 units of pack RBC, her hemoglobin is 9, patient states is feeling little better now however complains of pain in the neck, will apply Lidoderm patch, will continue Lyrica and [place] and to further evaluate with C-spine x-ray, her urine is suspicious for UTI, started the patient on ceftriaxone follow-up on urine and blood culture will also consult her oncologist for further recommendation, 07/19/2021 interval history: Patient is a 76-year-old female with history for multiple myeloma presented with complaint of generalized weakness her hemoglobin was 7.6, upon arrival patient was given 2 units of pack RBC, her hemoglobin was 9, and today her hgb is 8.6, she also has SOLANGE upon arrival herBUN was 32 and Scr was 4 today her BUN is 50 and Scr is 6.7 most likely due to dehydration, poor PO intake, her kidney US is normal, will start gentle hydration and consult national sales associate for further evaluation, and patient states is feeling little better now however complains of pain in the neck, will apply Lidoderm patch, will continue Lyrica and [place] and to further evaluate with C-spine x-ray, which showed Severe cervical spondylosis. will consult ortho, her urine is suspicious for UTI, started the patient on ceftriaxone follow-up on urine and blood culture will also consult her oncologist for further recommendation, Subjective Date/time seen: 07/19/21 13:11 07/19/2021 interval history: Patient is a 76-year-old female with history for multiple myeloma presented with complaint of generalized weakness her hemoglobin was 7.6, upon arrival patient was given 2 units of pack RBC, her hemoglobin was 9, and today her hgb is 8.6, she
--- NOTE | 2021-07-19 14:09 | WPDURCON ---
Assessment and Plan Assessment and plan (1) SOLANGE (acute kidney injury): Code(s): N17.9 - Acute kidney failure, unspecified Status: Acute Assessment and Plan: No etiolgoy for SOLANGE from a urologic standpoint. CT/DAVID were normal without obstruction or hydronephrosis. Straight catheter PVR was 200cc, therefore no retention causing SOLANGE. (2) Microhematuria: Code(s): R31.29 - Other microscopic hematuria Status: Acute Assessment and Plan: Repeat sterile urine sample sent via straight cath. She is asymptomatic therefore, I don't suspect infection. When her creatinine improves I recommend a CT with and without contrast and then a f/u in the office for a cystosocpy. No futher evaluation at this time. Urology Consult Note HPI Date Seen: 07/19/21 Time Seen: 13:00 Requesting Physician: Micki Brown MD Primary Care Provider: Cesario Medrano, Consult Narrative Reason for consult: SOLANGE/Worsening CKD Narrative: Jaimie Nix is a 70 year old female who presented to the ER for anemia and SOLANGE. She is being treated for Multiple Myeloma by Dr. Finch and was going to be seen yesterday for IV therapy at the cancer center but was sent tot he ER d/t her abnormal labs. We have been consulted to evaluate her SOLANGE. She has a normal DAVID and negative urine culture, creatinine is up to 6.70 from 1.30 in 04/16/21 which appears to be her baseline. Her GFR in 05/01 was 40 and is now 6. She is afebrile and WBC is 2.3. She has no urinary symptoms at this time other than some frequency and urgency which she normally has. She is a patient of Dr. Alexander and has an Interstim in place for severe incontinence and OAB, but hasn't been seen since 2018. She had microhematuria present on her UA, although culture was negative. We are unable to do a CT with and without contrast, however her CT without contrast reveals no stones and no hydronephrosis. She was ordered to have a straight cath specimen as well to repeat a sterile urine culture and to check PVR, which was 200cc upon catheter insertion, therefore urinary retention is also ruled out. Review of Systems Cardiovascular: Cardiovascular: Denies chest pain Respiratory: Respiratory: Reports no additional respiratory complaints Genitourinary: Genitourinary: Denies hematuria, Reports nocturia, Denies dysuria, Denies flank pain, Reports urinary incontinence and Reports urinary urgency PMFSH Past Medical History Medical History Acute neck pain Cervical spondylosis with radiculopathy Chronic anemia Chronic kidney disease, stage 3 Coronary artery disease Degenerative disc disease Dyslipidemia Gastric polyp Gastroesophageal reflux disease Gout History of MRSA infection Hypertension Insulin dependent type 2 diabetes mellitus Lichen sclerosus Macular degeneration Mixed stress and urge urinary incontinence Multiple myeloma Obstructive sleep apnea on CPAP Osteoarthritis Paroxysmal atrial fibrillation Right bundle branch block Surgical History Surgical History History of arthroscopy of left knee History of bilateral knee arthroplasty History of bladder surgery Status post sling and InterStim. History of cardiac catheterization History of cataract extraction History of cholecystectomy History of coronary artery stent placement History of spinal surgery x4 Status post bilateral foot surgery Bone spur removal. Family History Family History Mother Hypertension, Onset Age: 86 Family history of elevated blood lipids, Onset Age: 86 Patient's mother is Grandparent Cerebrovascular accident, Onset Age: 76 Diabetes mellitus, Onset Age: 84 Father Family history of coronary artery disease, Onset Age: 49 Patient's father is Social History Social History
[2021-07-19] MEDS: FERROUS SULFATE 324 MG TABLET 648 MG PO (14:51)
[2021-07-19 16:27] LABS: Glucose Point of Care 143 mg/dl (65-105)
[2021-07-19 20:03] LABS: Glucose Point of Care 175 mg/dl (65-105)
[2021-07-19] MEDS: PRIMIDONE 50 MG TABLET 100 MG PO (20:48)
[2021-07-19] MEDS: SERTRALINE HCL 50 MG TABLET PO (20:48)
[2021-07-19] MEDS: INSULIN GLARGINE (LANTUS) 1,000 UNITS/10 ML VIAL 94 UNITS SUB-Q (21:00)
[2021-07-20] VITALS (12 sets, daily range): BP systolic 132–156; BP diastolic 60–83; PULSE 58–72; RESP 18–20; TEMP 36.6–36.9; O2SAT 93–99
[2021-07-20] MEDS: SODIUM CHLORIDE 0.9% IV 1,000 ML 100 ML IV CONT ×2 (05:15→19:52)
[2021-07-20] MEDS: OMEGA 3 POLYUNSAT FATTY ACIDS 1 GM CAP 2 GM PO ×2 (05:16→17:15)
[2021-07-20 07:44] LABS: Basophils Percent Auto 0.8 % (0.2-1.2); Eosinophils Absolute Auto 0.1 K/mm3 (0-0.3); Hematocrit 26.1 % (37.0-47.0); Hemoglobin 8.4 g/dL (12.0-15.0); Immature Granulocyte Absolute 0.03 K/mm3 (0.00-0.031); Immature Granulocyte Percent A 1.2 % (0-0.5); Immature Platelet Fraction Pct 8.9 % (0.9-11.2); Lymphocytes Percent Auto 20.1 % (18.3-44.2); Mean Corpuscular HGB Conc 32.2 g/dl (32-36); Mean Corpuscular Hemoglobin 29.8 pg (26-34); Mean Corpuscular Volume 92.6 fl (80-100); Mean Platelet Volume 11.6 fl (7.4-10.4); Monocytes Absolute Auto 0.2 K/mm3 (0.1-0.6); Monocytes Percent Auto 6.4 % (2.6-8.5); Neutrophils Absolute Auto 1.7 K/mm3 (1.3-6.7); Neutrophils Percent Auto 67.5 % (45.5-73.1); Nucleated Red Blood Cells Perc 0.8 % (0.0-0.2); Platelet Count Result 67 k/mm3 (150-375); Red Blood Count 2.82 M/mm3 (4.2-5.4); Red Cell Distribution Width 15.5 % (11.5-14.5); White Blood Count 2.5 K/mm3 (4.5-10.0)
[2021-07-20] MEDS: FLUTICASONE/SALMETEROL 230-21 MCG INHALER 1 PUFF 2 PUFF INHALATION ×3 (07:58→23:27)
[2021-07-20] MEDS: UMECLIDINIUM BROMIDE 62.5 MCG ELLIPTA 1 PUFF INHALATION (07:58)
[2021-07-20 07:59] LABS: Glucose Point of Care 72 mg/dl (65-105)
[2021-07-20 08:01] LABS: Alanine Aminotransferase 8 U/L (6-35); Albumin Level 3.2 g/dL (3.5-5.1); Alkaline Phosphatase 56 U/L (38-126); Anion Gap 14 mmol/L (8-16); Aspartate Amino Transferase 13 U/L (14-36); Bilirubin,Total 0.3 mg/dL (0.2-1.3); Blood Urea Nitrogen 55 mg/dL (7-17); Calcium 7.6 mg/dL (8.4-10.2); Carbon Dioxide 19 mmol/L (22-30); Chloride 102 mmol/L (98-107); Estimated CRCL calculation 9 ml/min; Estimated Glomerular Filt Rate 5; Glucose 69 mg/dL (65-110); Magnesium 1.5 mg/dL (1.6-2.3); Potassium 4.8 mmol/L (3.4-5.0); Sodium 135 mmol/L (137-145)
[2021-07-20] MEDS: MAGNESIUM OXIDE 400 MG TABLET PO (09:09)
[2021-07-20] MEDS: METOPROLOL TARTRATE 25 MG TABLET PO ×2 (09:09→21:25)
[2021-07-20] MEDS: ISOSORBIDE MONONITRATE 30 MG TAB.ER.24H PO (09:09)
[2021-07-20] MEDS: calcitrioL 0.25 MCG CAPSULE PO (09:09)
[2021-07-20] MEDS: ASPIRIN 81 MG CHEWABLE TABLET PO (09:09)
[2021-07-20] MEDS: CYCLOBENZAPRINE HCL 10 MG TABLET PO ×2 (09:10→21:25)
[2021-07-20] MEDS: PANTOPRAZOLE 40 MG TABLET PO (09:10)
[2021-07-20] MEDS: FENOFIBRATE,MICRONIZED 48 MG TABLET PO (09:11)
[2021-07-20] MEDS: DABIGATRAN ETEXILATE 150 MG CAPSULE PO (09:11)
[2021-07-20] MEDS: HYDROcodone/acetaminophen (*CRX) 5-325 MG TABLET 1 TAB PO (09:11)
[2021-07-20] MEDS: PRIMIDONE 50 MG TABLET PO (09:12)
--- NOTE | 2021-07-20 10:15 | WPDCDIQUERY2 ---
CDI Query Clarification Request 07/17 Hospitalist documented: Acute on chronic anemia: ?Code(s): D64.9 - Anemia, unspecified ?Status:?Acute ?Assessment and Plan: Transfused to a stable hemoglobin. She is currently on oral chemotherapy for multiple myeloma and had recent labs drawn which showed a decrease in hemoglobin from baseline as well as worsening renal function. She was sent to the infusion center for blood transfusion and IV fluid rehydration, however her blood pressure was reportedly too high for them to give her a blood and she was sent to the ER. Blood pressure on arrival to the emergency department was 195/49. Hemoglobin and hematocrit were 7.6 and 24.4% respectively, with her hemoglobin being at least 1.5 g lower than what she typically runs Please clarify, (Acute on chronic anemia), type: -Blood loss anemia -Macrocytic -Hemolytic -Other -Unable to determine <Agueda Jaramillo - Last Filed: 07/20/21 10:33> Clarified Diagnosis (1) Multiple myeloma: Code(s): C90.00 - Multiple myeloma not having achieved remission <Agueda Jaramillo - Last Filed: 07/20/21 10:33> Status: Chronic <Agueda Jaramillo - Last Filed: 07/20/21 10:33> Assessment and Plan: anemia most likely secondary to multiple myeloma may be suppressing bone marrow production <Micki Brown MD - Last Filed: 07/28/21 10:48>
--- NOTE | 2021-07-20 11:24 | PM.CNNEP ---
Assessment and Plan Additional Plan 1. Jaimie has acute kidney injury. This is on top of a baseline creatinine of 2.0. The patient had an ultrasound which was negative. She has not been on any medications that would do this. She has not been on any antibiotics or nonsteroidal anti-inflammatory agents. She has not had a skin rash or itching. She has been urinating normally without bloody or foamy urine. 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 I discussed with Dr Finch. says that her light chains have been rising lately. I suspect that this might be myeloma kidney Once again. Ideally we should get a kidney biopsy to prove this but she is on baby aspirin and is at risk for bleeding, especially with multiple myeloma. I discussed at length with Dr. Finch and also with the patient. We have several options. One would be to proceed with plasmapheresis now. If this is myeloma kidney than the plasmapheresis might help. It would certainly remove the light chains from her blood and hopefully renal function would improve. Intensifying chemotherapy would also be considered, the patient is hesitant to do more aggressive chemotherapy because she had such a hard time with the Revlimid. Further discussions will be had by her and Dr. Finch. another option would be to not treat the myeloma at all and she would probably progress to end-stage kidney and would need to be on dialysis 3 times a week for the rest of her life. The latter is assuming that this is myeloma kidney. An in between option would be to wait for the aspirin to wear out and do a biopsy so we know what is going on however her creatinine is already up to 7 now and I fear that if we wait much longer any chance of reversibility will dwindle. after long discussion Dr. Finch and I felt that the best thing to do would be plasmapheresis. I discussed as well with the patient and she agrees with this option. I discussed the process risks benefits and alternatives of plasmapheresis to the patient she agrees to proceed. I will ask the surgeons to place a dialysis catheter. We will get the plasmapheresis going. 2. The patient has hypertension. Her systolic is running between 120 and 170. Will hold off on adjustment of medications until she has had a couple of treatments with plasmapheresis. 3. The patient has diabetes. She is on medications per hospitalist. 4. The patient has anemia. This is likely due to the myeloma plus due to her kidney disease. Her hemoglobin is 8.4. Will check iron B12 and folate. Will start her on some Epogen 5. sleep apnea. The patient uses or CPAP machine 6. coronary disease status post stents. She is not having any chest pain 7. hyperlipidemia on medications long discussion with the patient and with Dr. Finch. 25 minutes in all discussed with everybody in addition to clinical activity. History of Present Illness Reason for Consult Consult date: 07/20/21 Chief Complaint Chief complaint: Neck pain History of Present Illness Narrative: Jaimie is a very pleasant 70-year-old lady who has multiple medical problems including hypertension, diabetes, chronic anemia, chronic kidney disease with a stent baseline creatinine of around 2, hyperlipidemia, GERD, gout, paroxysmal atrial fibrillation, coronary disease status post stents, obstructive sleep apnea who uses a CPAP mask, and active multiple myeloma. The patient has been getting Revlimid to treat her myeloma. Last fall the patient was admitted to the hospital with diarrhea and a syncopal episode. This is be felt to be due to the Revlimid and her numbers were looking okay so the Revlimid was discontinued for a while. She has been getting observation for her myeloma by Dr. Finch and just in the last few weeks her light chains have been increasing. She was placed back on the Revlimid in May. Recently her hemoglobin was found to be very l
[2021-07-20 11:49] LABS: Glucose Point of Care 136 mg/dl (65-105)
[2021-07-20 11:55] LABS: INR 1.9; Prothrombin Time 20.7 Seconds (11.1-14.7)
[2021-07-20 11:56] LABS: Partial Thromboplastin Time 70.8 SECONDS (22.3-36.8)
--- NOTE | 2021-07-20 11:56 | PM.CNGS ---
Assessment and Plan Assessment and plan (1) Multiple myeloma: Code(s): C90.00 - Multiple myeloma not having achieved remission Status: Chronic (2) Acute on chronic kidney failure: Code(s): N17.9 - Acute kidney failure, unspecified; N18.9 - Chronic kidney disease, unspecified Status: Acute (3) Encounter regarding vascular access for dialysis for ESRD: Code(s): N18.6 - End stage renal disease; Z99.2 - Dependence on renal dialysis Status: Acute Assessment and Plan: plan to place tunneled dura flow central venous catheter for plasmapheresis tomorrow morning under anesthesia and fluoroscopy. History of Present Illness Consult details Consult date: 07/20/21 [facility] Past Medical History Medical History Acute neck pain Cervical spondylosis with radiculopathy Chronic anemia Chronic kidney disease, stage 3 Coronary artery disease Degenerative disc disease Dyslipidemia Gastric polyp Gastroesophageal reflux disease Gout History of MRSA infection Hypertension Insulin dependent type 2 diabetes mellitus Lichen sclerosus Macular degeneration Mixed stress and urge urinary incontinence Multiple myeloma Obstructive sleep apnea on CPAP Osteoarthritis Paroxysmal atrial fibrillation Right bundle branch block Surgical History Surgical History History of arthroscopy of left knee History of bilateral knee arthroplasty History of bladder surgery Status post sling and InterStim. History of cardiac catheterization History of cataract extraction History of cholecystectomy History of coronary artery stent placement History of spinal surgery x4 Status post bilateral foot surgery Bone spur removal. Family History Family History Mother Hypertension, Onset Age: 86 Family history of elevated blood lipids, Onset Age: 86 Patient's mother is Grandparent Cerebrovascular accident, Onset Age: 76 Diabetes mellitus, Onset Age: 84 Father Family history of coronary artery disease, Onset Age: 49 Patient's father is Social History Social History Social History: Surrogate decision maker: Kristine Tolliver, sister. Code status: Full code. Smoking status: Never smoker Second hand tobacco smoke exposure: No Alcohol intake: never Substance use: never Substance use type: does not use Spiritual care concerns: Yes Meds Home Medications and Allergies Home Medications Medication Instructions Recorded Confirmed Type cholecalciferol (vitamin D3) 1,250 50,000 unit PO WEEKLY 02/12/19 07/17/21 History mcg (50,000 unit) capsule cyanocobalamin (vitamin B-12) 1,000 mcg subcut MONTHLY 02/12/19 07/17/21 History 1,000 mcg/mL injection kit isosorbide mononitrate 30 mg 30 mg PO DAILY 02/12/19 07/17/21 History tablet,extended release 24 hr losartan 50 mg tablet 100 mg PO HS 02/12/19 07/17/21 History oxybutynin chloride 10 mg 10 mg PO DAILY 02/12/19 07/17/21 History tablet,extended release 24 hr pantoprazole 40 mg tablet,delayed 40 mg PO QAM 02/12/19 07/17/21 History release pregabalin 25 mg capsule (Lyrica) 75 mg PO DAILY 02/12/19 07/17/21 History ferrous sulfate 325 mg (65 mg 650 mg PO DAILY 08/03/19 07/17/21 History iron) tablet albuterol sulfate 90 mcg/actuation 2 puff inhalation Q4H PRN 12/09/19 07/17/21 History aerosol inhaler (ProAir HFA) Shortness Of Breath sertraline 50 mg tablet (Zoloft) 50 mg PO HS 12/09/19 07/17/21 History albuterol sulfate 0.63 mg/3 mL 0.63 mg inhalation Q6H PRN wheezes 10/18/20 07/17/21 History solution for nebulization aspirin 81 mg tablet 81 mg PO DAILY 10/18/20 07/17/21 History cetirizine 10 mg tablet (Zyrtec) 10 mg PO DAILY PRN Allergy Symptoms 10/18/20 07/17/21 History icosapent ethyl
[2021-07-20 12:02] LABS: Immunoglobulin A 60 mg/dL (70-400); Immunoglobulin G 350 mg/dL (700-1600)
[2021-07-20] MEDS: PREGABALIN (*CRX) 25 MG CAPSULE PO (12:03)
[2021-07-20 12:13] LABS: Immunoglobulin M < 25 mg/dL (40-230)
[2021-07-20 12:59] LABS: Immature Reticulocyte Fraction 9.1 % (3.0-15.9); Reticulocyte Hemoglobin Conten 30.6 pg (28.2-35.7); Reticulocytes Absolute 0.03 B/L (32.2-175.7)
[2021-07-20 13:53] LABS: Iron 37 ug/dL (37-170)
[2021-07-20 14:02] LABS: Percent Iron Saturation 13 % (20-50)
[2021-07-20 14:17] LABS: Sodium Urine Random 34 meq/L
[2021-07-20] MEDS: EPOETIN ALFA-EPBX 10,000 UNITS/ML VIAL 10000 UNITS SUB-Q (14:48)
[2021-07-20] MEDS: FERROUS SULFATE 324 MG TABLET 648 MG PO (14:49)
[2021-07-20 15:01] LABS: Folic Acid 10.1 ng/mL (2.76->20)
[2021-07-20 16:45] LABS: Glucose Point of Care 125 mg/dl (65-105)
--- NOTE | 2021-07-20 18:01 | WPDONCPN ---
Progress Note: A/P - Additional Plan Multiple myeloma. Case was discussed with Dr. Marques today. Revlimid has been discontinued due to renal impairment. I will order serum protein electrophoresis with immunofixation and light chain studies. Patient may need to have a kidney biopsy to check myeloma involvement of kidney. She is going to have plasmapheresis hopefully tomorrow for elevated light chains. Anemia secondary to chronic kidney disease. Patient is on Procrit. She will continue iron once a day. Neck pain orthopedic consultation noted. Conservative management recommended. Acute renal failure. Case discussed with Dr. Marques and plan for plasmapheresis noted. Myeloma testing has been ordered. Patient may need to start another form of myeloma therapy if her renal failure is due to worsening multiple myeloma. - Time Spent With Patient Total time spent is greater than 50% in coordination of care (as documented) at patient's floor/unit and/or counseling patient: 15 - 25 minutes Subjective Interval history: Multiple myeloma Acute renal failure Review of Systems - Review of Systems Patient remains tired and fatigued but feeling much better. Denies any chest pain. Denies any shortness of breath. No fevers and chills. - Neurologic Reports system reviewed and no additional complaints, except as documented, Reports hearing normal, Reports numbness, Reports weakness, Denies abnormal speech, Denies abnormal gait, Denies confusion, Denies headache(s), Denies other visual disturbances Exam Vital signs: Temp Pulse Resp BP Pulse Ox O2 Del Method 36.6 C 69 20 148/80 H 99 Room Air 07/20/21 16:44 07/20/21 16:44 07/20/21 16:44 07/20/21 16:44 07/20/21 16:44 07/20/21 09:10 Lungs are clear to auscultation bilaterally Cardiovascular regular rate rhythm no murmurs Abdomen soft nontender nondistended bowel sounds are positive Extremities no edema PN: Objective Data - Labs CBC & Chem 7: 07/20/21 07:03 07/20/21 07:03 Labs: Laboratory Results - last 24 hr 07/19/21 07/20/21 07/20/21 19:56 07:03 07:03 WBC 2.5 L RBC 2.82 L Hgb 8.4 L Hct 26.1 L MCV 92.6 MCH 29.8 MCHC 32.2 RDW 15.5 H Plt Count 67 L MPV 11.6 H Immature Gran % (Auto) 1.2 H Neut % (Auto) 67.5 Lymph % (Auto) 20.1 [place] % (Auto) 6.4 Eos % (Auto) 4.0 Baso % (Auto) 0.8 Lymph # (Auto) 0.50 L [place] # (Auto) 0.2 Eos # (Auto) 0.1 Baso # (Auto) 0.0 Abs Immat Gran (auto) 0.03 Absolute Neuts (auto) 1.7 Absolute Nucleated RBC 0.0 Nucleated RBC % 0.8 H % Immature Plt Fraction 8.9 Absolute Retic Percent Retic Immature Retic Fraction Retic Hgb Content PT INR APTT Sodium 135 L Potassium 4.8 Chloride 102 Carbon Dioxide 19 L Anion Gap 14 BUN 55 H Creatinine 7.60 H Estim Creat Clear Calc 9 Estimated GFR 5 L Glucose 69 POC Capillary Glucose 175 H Calcium 7.6 L Magnesium 1.5 L Iron TIBC % Saturation Ferritin Total Bilirubin 0.3 AST 13 L ALT 8 Alkaline Phosphatase 56 Total Protein 6.0 L Albumin 3.2 L Vitamin B12 Folate Ur Random Sodium IgG IgA IgM 07/20/21 07/20/21 07/20/21 07:44 11:35 11:35 WBC RBC Hgb Hct MCV MCH MCHC RDW Plt Count MPV Immature Gran % (Auto) Neut % (Auto) Lymph % (Auto) [place] % (Auto) Eos % (Auto) Baso % (Auto) Lymph # (Auto) [place] # (Auto) Eos # (Auto) Baso # (Auto) Abs Immat Gran (auto) Absolute Neuts (auto) Absolute Nucleated RBC Nucleated RBC % % Immature Plt Fraction Absolute Retic Percent Retic Immature Retic Fraction Retic Hgb Content PT INR APTT 70.8 H Sodium Potassium Chloride Carbon Dioxide Anion Gap BUN Creatinine Estim Creat Clear Calc Estimated GFR Glu
[2021-07-20] MEDS: PRIMIDONE 50 MG TABLET 100 MG PO (21:00)
[2021-07-20] MEDS: SERTRALINE HCL 50 MG TABLET PO (21:00)
[2021-07-20] MEDS: PREGABALIN (*CRX) 25 MG CAPSULE 75 MG PO (21:25)
[2021-07-20] MEDS: WATER FOR IRRIGATION, STERILE 1,000 ML BOTTLE 1000 ML (21:30)
[2021-07-20] MEDS: INSULIN GLARGINE (LANTUS) 1,000 UNITS/10 ML VIAL 94 UNITS SUB-Q (21:31)
[2021-07-20 21:51] LABS: Glucose Point of Care 147 mg/dl (65-105)
[2021-07-21] VITALS (16 sets, daily range): BP systolic 124–178; BP diastolic 53–76; PULSE 56–89; RESP 15–28; TEMP 35.8–36.7; O2SAT 94–99
[2021-07-21 00:05] LABS: Creatinine Urine 31.8 mg/dL; Total Protein Urine Random 59 mg/dL; Ur Ttl Prot Creatinine Ratio 1.86 mg/mg (0-0.20)
[2021-07-21] MEDS: SODIUM CHLORIDE 0.9% IV 1,000 ML 100 ML IV CONT ×2 (05:21→16:48)
[2021-07-21 06:32] LABS: Basophils Percent Auto 0.6 % (0.2-1.2); Eosinophils Absolute Auto 0.1 K/mm3 (0-0.3); Eosinophils Percent Auto 2.4 % (0-4.4); Hematocrit 26.4 % (37.0-47.0); Hemoglobin 8.7 g/dL (12.0-15.0); Immature Granulocyte Absolute 0.06 K/mm3 (0.00-0.031); Immature Granulocyte Percent A 1.8 % (0-0.5); Lymphocytes Absolute Auto 0.62 K/mm3 (0.9-3.2); Mean Corpuscular Hemoglobin 30.3 pg (26-34); Mean Platelet Volume 11.8 fl (7.4-10.4); Monocytes Absolute Auto 0.2 K/mm3 (0.1-0.6); Monocytes Percent Auto 4.9 % (2.6-8.5); Neutrophils Absolute Auto 2.3 K/mm3 (1.3-6.7); Neutrophils Percent Auto 71.3 % (45.5-73.1); Platelet Count Result 83 k/mm3 (150-375); Red Blood Count 2.87 M/mm3 (4.2-5.4); Red Cell Distribution Width 15.3 % (11.5-14.5); White Blood Count 3.3 K/mm3 (4.5-10.0)
[2021-07-21 06:42] LABS: INR 1.9; Prothrombin Time 21.4 Seconds (11.1-14.7)
[2021-07-21 06:44] LABS: Partial Thromboplastin Time 88.7 SECONDS (22.3-36.8)
[2021-07-21 06:46] LABS: Alanine Aminotransferase 8 U/L (6-35); Albumin Level 3.4 g/dL (3.5-5.1); Alkaline Phosphatase 61 U/L (38-126); Anion Gap 14 mmol/L (8-16); Aspartate Amino Transferase 15 U/L (14-36); Bilirubin,Total 0.3 mg/dL (0.2-1.3); Blood Urea Nitrogen 56 mg/dL (7-17); Calcium 7.9 mg/dL (8.4-10.2); Carbon Dioxide 16 mmol/L (22-30); Chloride 105 mmol/L (98-107); Estimated CRCL calculation 8 ml/min; Estimated Glomerular Filt Rate 5; Glucose 60 mg/dL (65-110); Magnesium 1.4 mg/dL (1.6-2.3); Potassium 4.5 mmol/L (3.4-5.0); Sodium 135 mmol/L (137-145)
[2021-07-21] MEDS: DEXTROSE 50% 25 GM/50 ML SYRINGE IV PUSH (06:50)
--- NOTE | 2021-07-21 07:37 | WPDANESEPPF ---
Anes - Initial Pre Proc Eval Procedure: Operation Date: 07/21/21 07:30 Proposed Procedures p Insertion Duraflow Permacath Dialysis Under Fluroscopy - John Paul Rivera MD Date/Time: 07/21/21 07:37 Surgeon: Micki Brown MD Pre Op Diagnosis: Neck pain Patient Data Age: 70 Gender: F Height: 1.69 m Weight: 131.5 kg Last Vital Signs Temp 36.4 C L 07/21/21 05:24 Pulse 69 07/21/21 05:24 Resp 20 07/21/21 05:24 BP 155/72 H 07/21/21 05:24 Pulse Ox 99 07/21/21 05:24 O2 Del Method CPAP 07/21/21 03:40 FiO2 21 07/20/21 23:27 Allergies Allergy/AdvReac Type Severity Reaction Status Date / Time celecoxib Allergy Intermediate TACHYCARDIA Verified 07/17/21 10:54 ibuprofen Allergy Unknown Other Verified 07/17/21 10:54 iodine Allergy Unknown Other Verified 07/17/21 10:54 midazolam Allergy Unknown AMNESIA Verified 07/17/21 10:54 AFTER SURGERY Penicillins Allergy Unknown Other Verified 07/17/21 10:54 Contrast Media Allergy Intermediate Hives / Uncoded 07/17/21 10:54 Red Face Home Medications Medication Instructions Recorded Confirmed Type cholecalciferol (vitamin D3) 1,250 50,000 unit PO WEEKLY 02/12/19 07/17/21 History mcg (50,000 unit) capsule cyanocobalamin (vitamin B-12) 1,000 mcg subcut MONTHLY 02/12/19 07/17/21 History 1,000 mcg/mL injection kit isosorbide mononitrate 30 mg 30 mg PO DAILY 02/12/19 07/17/21 History tablet,extended release 24 hr losartan 50 mg tablet 100 mg PO HS 02/12/19 07/17/21 History oxybutynin chloride 10 mg 10 mg PO DAILY 02/12/19 07/17/21 History tablet,extended release 24 hr pantoprazole 40 mg tablet,delayed 40 mg PO QAM 02/12/19 07/17/21 History release pregabalin 25 mg capsule (Lyrica) 75 mg PO DAILY 02/12/19 07/17/21 History ferrous sulfate 325 mg (65 mg 650 mg PO DAILY 08/03/19 07/17/21 History iron) tablet albuterol sulfate 90 mcg/actuation 2 puff inhalation Q4H PRN 12/09/19 07/17/21 History aerosol inhaler (ProAir HFA) Shortness Of Breath sertraline 50 mg tablet (Zoloft) 50 mg PO HS 12/09/19 07/17/21 History albuterol sulfate 0.63 mg/3 mL 0.63 mg inhalation Q6H PRN wheezes 10/18/20 07/17/21 History solution for nebulization aspirin 81 mg tablet 81 mg PO DAILY 10/18/20 07/17/21 History cetirizine 10 mg tablet (Zyrtec) 10 mg PO DAILY PRN Allergy Symptoms 10/18/20 07/17/21 History icosapent ethyl 1 gram capsule 1 g PO QID 10/18/20 07/17/21 History (Vascepa) insulin degludec 100 unit/mL 94 unit subcut HS 10/18/20 07/17/21 History subcutaneous solution (Tresiba U-100 Insulin) mometasone-formoterol HFA 200 2 puff inhalation BID 10/18/20 07/17/21 History mcg-5 mcg/actuation aerosol inhaler (Dulera) tiotropium bromide 1.25 2 puff inhalation DAILY 10/18/20 07/17/21 History mcg/actuation mist for inhalation (Spiriva Respimat) magnesium oxide 400 mg PO BID 02/13/21 07/17/21 History calcitriol 0.25 mcg capsule 0.25 mcg PO DAILY 04/10/21 07/17/21 History montelukast 10 mg tablet 10 mg PO DAILY PRN Allergy Symptoms 04/15/21 07/17/21 History (Singulair) dabigatran etexilate 150 mg 150 mg PO BID #60 caps 04/17/21 07/17/21 Rx capsule (Pradaxa) metoprolol tartrate 25 mg tablet 25 mg PO Q12HR #60 tabs 04/17/21 07/17/21 Rx mupirocin 2 % topical ointment 1 applic EACH NARE Q12HR #15 grams 04/17/21 07/17/21 Rx fenofibrate 54 mg tablet 54 mg PO DAILY 04/24/21 07/17/21 History primidone 50 mg tablet 50 mg PO .COMPLEX #90 tabs 07/13/21 07/17/21 Rx lenalidomide 15 mg capsule 1 cap PO DAILY 07/17/21 07/17/21 History (Revlimid) Laboratory Tests 07/20/21 07/20/21 07/20/21 07:03 07:03 07:44 WBC 2.5 K/mm3 L K/mm3 (4.5-10.0) RBC 2.82 M/mm3 L M/mm3 (4.2-5.4) Hgb 8.4 g/dL L g/dL (12.0-15.0) Hct 26.1 % L % (37.0-47.0) MCV 92.6 fl fl (80-100) MCH 29.8 pg pg (26-34) MCHC 32.2 g/dl g/dl (32-36) RDW 15.5 % H % (11.5-14.
[2021-07-21 07:50] LABS: Glucose Point of Care 105 mg/dl (65-105)
[2021-07-21] MEDS: ceFAZolin 3 GM/D5W 100 ML 100 ML IVPB (08:01)
[2021-07-21] MEDS: HEPARIN SODIUM 5,000 UNITS/ML VIAL 5000 UNITS IRRIGATION (08:06)
[2021-07-21] MEDS: HEPARIN SODIUM, PORCINE 10,000 UNITS/10 ML VIAL 10000 UNITS IRRIGATION (08:09)
[2021-07-21] MEDS: LIDO 1%/EPINEPHRINE/PF 1:200,000 30 ML VIAL INFILTRATE (08:27)
[2021-07-21] MEDS: SODIUM CHLORIDE 0.9% IV 500 ML 30 ML IV CONT (08:45)
[2021-07-21 09:00] LABS: Glucose Point of Care 91 mg/dl (65-105)
--- NOTE | 2021-07-21 09:01 | W.PM.PROC2 ---
Procedure Note - Detailed Date of Procedure 07/21/21 Pre-op Diagnosis SOLANGE, inadequate venous access Post-op Diagnosis Same Procedure Performed Placement right subclavian tunneled duraflow CVC under fluoroscopy Surgeon John Paul Rivera MD Ultrasonic Hand Solderer JOANA Warren Anesthesia General (GIVS) and Local (1% lidocaine with epi) Indications Patient being treated for myeloma developed SOLANGE. Asked to place tunneled CVC for plasmapheresis/dialysis. Findings Tip of 24 cm dura flow catheter in distal SVC at right atrial junction. Description of Procedure Patient was taken to surgery and anesthesia was introduced. The right neck and right chest as well as the left chest was prepped and draped. Local anesthetic was infiltrated under the right clavicle and in the skin and subcutaneous. A single puncture was used and the right subclavian vein was cannulated. A guidewire passed readily into the superior vena cava. The position was documented by C-arm fluoroscopy. I then used fluoroscopy and the path of the guidewire to estimate the position of exit and general placement of the 24 cm dura flow catheter. Beside the exit of the guidewire to additional counter incisions were marked on the skin. Local was infiltrated under the 2 counter incisions as well as the exit site of the guidewire. Incisions were made at each location. The catheter was then tunneled retrograde through the lower most incision and eventually brought through each incision and out the same exit site as the guidewire. Under fluoroscopy, I then recheck the position of the catheter. It looked satisfactory. I then placed the smaller dilator over the guidewire and, under fluoroscopy, positioned the dilator in the SVC. The guidewire was removed and the stiffer guidewire in the kit with the dura flow catheter was then passed over the dilator and into the superior vena cava. I passed the larger dilator without difficulty. I then passed the introducer and sheath over the guidewire and positioned that in the SVC. The guidewire and introducer were removed. The tip of the dura flow catheter was then passed into the sleeve and passed its entire extent through the sleeve and into the distal SVC. I checked its position with fluoroscopy. It was in the expected position. I then gently removed the sheath. I again checked the dura flow catheter. It had a very smooth course without any kinks. Its position was in the distal SVC right atrial junction. I checked both ports with heparinized saline. Both aspirated blood readily and flushed easily. Each port was given a final flush. Each port was capped. I then closed the counter incisions with subcuticular interrupted 4-0 Vicryl suture. I sutured the hub of the dura flow catheter to the skin with 3-0 nylon suture. There was no bleeding from any of the sites. The to more cephalad incisions were dressed with Exofin surgical adhesive. The exit site of the catheter was dressed with gauze and transparent dressing. Patient was awakened and taken to recovery in good condition. Sponge and needle counts were correct x2. Implants 24 cm dura flow central venous catheter Estimated Blood Loss -10 Urine Output 600 Drains No Packing No Pathology None sent Complications No immediate complications Condition Stable Disposition PACU [facility] Billing Surgery - Charge Forward: Surgery Billing (Placement tunneled central venous catheter under fluoroscopy.)
[2021-07-21] MEDS: ASPIRIN 81 MG CHEWABLE TABLET PO (09:43)
[2021-07-21] MEDS: CYCLOBENZAPRINE HCL 10 MG TABLET PO ×2 (09:45→21:27)
[2021-07-21] MEDS: calcitrioL 0.25 MCG CAPSULE PO (09:45)
[2021-07-21] MEDS: MAGNESIUM OXIDE 400 MG TABLET PO (09:46)
[2021-07-21] MEDS: ISOSORBIDE MONONITRATE 30 MG TAB.ER.24H PO (09:47)
[2021-07-21] MEDS: FENOFIBRATE,MICRONIZED 48 MG TABLET PO (09:47)
[2021-07-21] MEDS: METOPROLOL TARTRATE 25 MG TABLET PO ×2 (09:48→21:27)
[2021-07-21] MEDS: PANTOPRAZOLE 40 MG TABLET PO (09:49)
[2021-07-21] MEDS: PREGABALIN (*CRX) 25 MG CAPSULE PO (09:49)
[2021-07-21 11:13] LABS: Glucose Point of Care 111 mg/dl (65-105)
--- NOTE | 2021-07-21 12:03 | PM.PNNEP ---
Progress Note: A&P Additional Plan 1. Jaimie has acute kidney injury. This is on top of a baseline creatinine of 2.0. The patient had an ultrasound which was negative. Urine electrolytes are non pre renal. 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 Dr. Finch ordered light chain tests as well as electrophoresis and immunofixation. Will start plasmapheresis today. Her creatinine is up to 8.9. She does not have any uremic symptoms. I am hoping plasmapheresis will turn the kidneys around. If not she will need dialysis. 2. The patient has hypertension. Her systolic is running between 120 and 170. Will hold off on adjustment of medications until she has had a couple of treatments with plasmapheresis. 3. The patient has diabetes. She is on medications per hospitalist. 4. The patient has anemia. B12 and folate are okay. T sat was low. Will start iron. She is on some Epogen 5. sleep apnea. The patient uses or CPAP machine 6. coronary disease status post stents. She is not having any chest pain 7. hyperlipidemia on medications long discussion with the patient. Subjective Date/time seen: 07/21/21 12:03 Interval history: patient feels about the same today. Eating well. No nausea or vomiting. No shortness of breath. Review of Systems Cardiovascular: Cardiovascular: Reports no additional cardiovascular complaints Respiratory: Respiratory: Reports no additional respiratory complaints Gastrointestinal: Gastrointestinal: Reports no additional gastrointestinal complaints Genitourinary: Genitourinary: Reports no additional female genitourinary complaints Exam Narrative: WDWN in NAD skin no rash head ncat lungs clear cor reg no rub abd BS+ nontender and soft ext no edema. Objective Data Vital Signs Vital Signs: Vital Signs - 24 hr 07/20/21 14:00 07/20/21 16:44 07/20/21 21:25 Temperature 36.8 C 36.6 C Pulse Rate 61 69 69 Respiratory Rate 20 20 Blood Pressure 132/60 148/80 H Pulse Oximetry 98 99 Oxygen Delivery Fraction of Inspired Oxygen 07/20/21 21:45 07/20/21 23:27 07/20/21 23:28 Temperature 36.9 C Pulse Rate 69 61 Respiratory Rate 18 Blood Pressure 154/60 H Pulse Oximetry 97 96 96 Oxygen Delivery CPAP CPAP Fraction of Inspired Oxygen 21 07/20/21 20:00 07/21/21 03:40 07/21/21 05:24 Temperature 36.4 C L Pulse Rate 61 62 69 Respiratory Rate 18 20 Blood Pressure 155/72 H Pulse Oximetry 96 95 99 Oxygen Delivery CPAP CPAP Fraction of Inspired Oxygen 21 07/21/21 08:45 07/21/21 09:00 07/21/21 09:15 Temperature 36.3 C L Pulse Rate 75 65 65 Respiratory Rate 17 15 17 Blood Pressure 141/55 H 124/68 146/61 H Pulse Oximetry 94 97 95 Oxygen Delivery Room Air Room Air Room Air Fraction of Inspired Oxygen 07/21/21 09:48 07/21/21 10:00 07/21/21 10:15 Temperature 35.9 C L 35.8 C L Pulse Rate 83 73 65 Respiratory Rate 18 18 Blood Pressure 175/63 H 178/62 H Pulse Oximetry 99 99 Oxygen Delivery Fraction of Inspired Oxygen 07/21/21 10:45 07/21/21 12:01 Temperature 36.4 C 36.1 C L Pulse Rate 62 56 L Respiratory Rate 20 18 Blood Pressure 169/66 H 150/70 H Pulse Oximetry 99 98 Oxygen Delivery Fraction of Inspired Oxygen Intake/Output Intake/Output: Intake & Output 07/18/21 07/19/21 07/20/21 07/21/21 23:59 23:59 23:59 23:59 Intake Total 2940 3240 2880 1400 Output Total 400 1500 1600 1400 Balance 2540 1740 1280 0 Meds/Results Medications: Active Medications Generic Name Dose Route Start Last Admin Trade Name Freq PRN Reason Stop Dose Admin Hydrocodone Bitart/Acetaminophen 1 tab 07/17/21 23:08 07/20/21 09:11 Hydrocodone/Acetaminophen (*Crx) 5-325 Mg Tablet PO 1 tab Q6H PRN Administration Pain Rated 4-6 Hydrocodone Bitart/Acetaminophen 1 tab 07/18/21 12:52 07/19/21 18:16 Hydrocodone/Acetaminophen (*Crx) 7.5-325 Mg Tablet PO 1 tab Q6H PRN Administ
[2021-07-21] MEDS: HYDROcodone/acetaminophen (*CRX) 7.5-325 MG TABLET 1 TAB PO ×2 (12:55→21:32)
[2021-07-21] MEDS: PRIMIDONE 50 MG TABLET PO (12:55)
[2021-07-21] MEDS: FERROUS SULFATE 324 MG TABLET 648 MG PO (12:56)
--- NOTE | 2021-07-21 13:14 | P.PNIM_ITS ---
Progress Note: A&P Assessment and Plan (1) Acute on chronic kidney failure: Code(s): N17.9 - Acute kidney failure, unspecified; N18.9 - Chronic kidney disease, unspecified Status: Acute Assessment and Plan: Etiology not entirely clear though may in part be due to dehydration given reports of poor oral intake over the past several days. She does have multiple myeloma which could also have precipitated the acute kidney injury. At this time will avoid nephrotoxic agents and cautiously hydrate overnight. Dr. Finch and the nephrologists were consulted by the ED physician and their input is appreciated. (2) Acute on chronic anemia: Code(s): D64.9 - Anemia, unspecified Status: Acute Assessment and Plan: Transfused to a stable hemoglobin. (3) Multiple myeloma: Code(s): C90.00 - Multiple myeloma not having achieved remission Status: Chronic Assessment and Plan: Case discussed with Dr. Finch who recommends holding her oral chemotherapy at this time. (4) Insulin dependent type 2 diabetes mellitus: Code(s): E11.9 - Type 2 diabetes mellitus without complications; Z79.4 - detention (current) use of insulin Status: Acute Assessment and Plan: Continue basal insulin. Initiate sliding scale insulin, Accu-Cheks, and hypoglycemic protocol. (5) Obstructive sleep apnea on CPAP: Code(s): G47.33 - Obstructive sleep apnea (adult) (pediatric); Z99.89 - Dependence on other enabling machines and devices Status: Acute Assessment and Plan: CPAP will be provided for the patient to use while hospitalized. (6) Hypertension: Code(s): I10 - Essential (primary) hypertension Status: Acute Assessment and Plan: Blood pressures were reviewed and her systolics have been running a bit high. Antihypertensives will be reviewed and resumed as appropriate. (7) Paroxysmal atrial fibrillation: Code(s): I48.0 - Paroxysmal atrial fibrillation Status: Acute Assessment and Plan: Currently sounds to be in a sinus rhythm. Additional Plan 07/18/2021 interval history: Patient is a 76-year-old female with history for multiple myeloma presented with complaint of generalized weakness her hemoglobin was 7.6 upon arrival patient was given 2 units of pack RBC, her hemoglobin is 9, patient states is feeling little better now however complains of pain in the neck, will apply Lidoderm patch, will continue Lyrica and Weed and to further evaluate with C-spine x-ray, her urine is suspicious for UTI, started the patient on ceftriaxone follow-up on urine and blood culture will also consult her oncologist for further recommendation, 07/19/2021 interval history: Patient is a 76-year-old female with history for multiple myeloma presented with complaint of generalized weakness her hemoglobin was 7.6, upon arrival patient was given 2 units of pack RBC, her hemoglobin was 9, and today her hgb is 8.6, she also has SOLANGE upon arrival herBUN was 32 and Scr was 4 today her BUN is 50 and Scr is 6.7 most likely due to dehydration, poor PO intake, her kidney US is normal, will start gentle hydration and consult supervisor customer records division for further evaluation, and patient states is feeling little better now however complains of pain in the neck, will apply Lidoderm patch, will continue Lyrica and Weed and to further evaluate with C-spine x-ray, which showed Severe cervical spondylosis. will consult ortho, her urine is suspicious for UTI, started the patient on ceftriaxone follow-up on urine and blood culture will also consult her oncologist for further re
--- NOTE | 2021-07-21 13:37 | PC.NURSE ---
To OR per bed at 0730, IV saline locked.
--- NOTE | 2021-07-21 13:38 | PC.NURSE ---
Returned from OR per bed at 0925. Report received from KENNETH Gordon.
[2021-07-21 15:55] LABS: Glucose Point of Care 166 mg/dl (65-105)
[2021-07-21] MEDS: OMEGA 3 POLYUNSAT FATTY ACIDS 1 GM CAP 2 GM PO (16:36)
[2021-07-21] MEDS: ALBUTEROL SULFATE (*SP) AEROSOL 1 PUFF 2 PUFF INHALATION (16:49)
[2021-07-21] MEDS: FLUTICASONE/SALMETEROL 230-21 MCG INHALER 1 PUFF 2 PUFF INHALATION (19:45)
[2021-07-21] MEDS: PREGABALIN (*CRX) 25 MG CAPSULE 75 MG PO (21:28)
[2021-07-21] MEDS: PRIMIDONE 50 MG TABLET 100 MG PO (21:28)
[2021-07-21] MEDS: SERTRALINE HCL 50 MG TABLET PO (21:28)
[2021-07-21 21:49] LABS: Glucose Point of Care 151 mg/dl (65-105)
[2021-07-21] MEDS: INSULIN GLARGINE (*BKC) 100 UNITS/ML 60 UNITS SUB-Q (22:17)
[2021-07-22] VITALS (13 sets, daily range): BP systolic 115–153; BP diastolic 42–90; PULSE 66–78; RESP 16–20; TEMP 36.1–36.9; O2SAT 94–99
[2021-07-22] MEDS: SODIUM CHLORIDE 0.9% IV 1,000 ML 100 ML IV CONT ×2 (04:52→18:24)
[2021-07-22] MEDS: HYDROcodone/acetaminophen (*CRX) 7.5-325 MG TABLET 1 TAB PO ×3 (04:52→21:47)
[2021-07-22 06:21] LABS: Glucose Point of Care 65 mg/dl (65-105)
[2021-07-22] MEDS: OMEGA 3 POLYUNSAT FATTY ACIDS 1 GM CAP 2 GM PO ×2 (06:50→16:18)
[2021-07-22 06:58] LABS: Basophils Percent Auto 0.4 % (0.2-1.2); Eosinophils Absolute Auto 0.1 K/mm3 (0-0.3); Eosinophils Percent Auto 5.3 % (0-4.4); Hematocrit 24.1 % (37.0-47.0); Hemoglobin 7.7 g/dL (12.0-15.0); Immature Granulocyte Absolute 0.04 K/mm3 (0.00-0.031); Immature Granulocyte Percent A 1.5 % (0-0.5); Lymphocytes Absolute Auto 0.41 K/mm3 (0.9-3.2); Lymphocytes Percent Auto 15.6 % (18.3-44.2); Mean Corpuscular Hemoglobin 29.6 pg (26-34); Mean Corpuscular Volume 92.7 fl (80-100); Mean Platelet Volume 11.1 fl (7.4-10.4); Monocytes Absolute Auto 0.1 K/mm3 (0.1-0.6); Monocytes Percent Auto 4.2 % (2.6-8.5); Neutrophils Absolute Auto 1.9 K/mm3 (1.3-6.7); Nucleated Red Blood Cells Perc 0.8 % (0.0-0.2); Platelet Count Result 76 k/mm3 (150-375); Red Cell Distribution Width 15.9 % (11.5-14.5); White Blood Count 2.6 K/mm3 (4.5-10.0)
[2021-07-22 06:59] LABS: Glucose Point of Care 84 mg/dl (65-105)
--- NOTE | 2021-07-22 07:07 | WPDANESPN ---
Anes - Prog Note Post-Op Date/Time: 07/22/21 07:07 Cardiovascular status: normal Respiratory status: normal Airway patency: baseline Mental status: baseline Post-Op hydration status: normal Vital Signs: Last Vital Signs Temp 97.0 F L 07/22/21 06:00 Pulse 68 07/22/21 06:00 Resp 20 07/22/21 06:00 BP 115/90 07/22/21 06:00 Pulse Ox 97 07/22/21 06:00 O2 Del Method CPAP 07/22/21 02:05 FiO2 21 07/21/21 20:00 Pain Score (VAS): 0/10 I/O: Intake & Output 07/21/21 07/21/21 07/22/21 15:59 23:59 07:59 Intake Total 9722 616 9173 Output Total 800 550 300 Balance 470 -180 950 Laboratory Tests 07/22/21 06:46 07/21/21 07/21/21 07/21/21 07:10 08:50 11:08 WBC RBC Hgb Hct MCV MCH MCHC RDW Plt Count MPV Immature Gran % (Auto) Neut % (Auto) Lymph % (Auto) [place] % (Auto) Eos % (Auto) Baso % (Auto) Lymph # (Auto) [place] # (Auto) Eos # (Auto) Baso # (Auto) Abs Immat Gran (auto) Absolute Neuts (auto) Absolute Nucleated RBC Nucleated RBC % Sodium Potassium Chloride Carbon Dioxide Anion Gap BUN Creatinine Estim Creat Clear Calc Estimated GFR Glucose POC Capillary Glucose 105 91 111 H Calcium Phosphorus Magnesium Total Bilirubin AST ALT Alkaline Phosphatase Total Protein Albumin [place]/Lambda Ratio Free [place] Light Chains Free Lambda Light Chain 07/21/21 07/21/21 07/22/21 15:48 21:39 06:16 WBC RBC Hgb Hct MCV MCH MCHC RDW Plt Count MPV Immature Gran % (Auto) Neut % (Auto) Lymph % (Auto) [place] % (Auto) Eos % (Auto) Baso % (Auto) Lymph # (Auto) [place] # (Auto) Eos # (Auto) Baso # (Auto) Abs Immat Gran (auto) Absolute Neuts (auto) Absolute Nucleated RBC Nucleated RBC % Sodium Potassium Chloride Carbon Dioxide Anion Gap BUN Creatinine Estim Creat Clear Calc Estimated GFR Glucose POC Capillary Glucose 166 H 151 H 65 Calcium Phosphorus Magnesium Total Bilirubin AST ALT Alkaline Phosphatase Total Protein Albumin [place]/Lambda Ratio Free [place] Light Chains Free Lambda Light Chain 07/22/21 07/22/21 07/22/21 06:46 06:46 06:46 WBC 2.6 L RBC 2.60 L Hgb 7.7 L Hct 24.1 L MCV 92.7 MCH 29.6 MCHC 32.0 RDW 15.9 H Plt Count 76 L MPV 11.1 H Immature Gran % (Auto) 1.5 H Neut % (Auto) 73.0 Lymph % (Auto) 15.6 L [place] % (Auto) 4.2 Eos % (Auto) 5.3 H Baso % (Auto) 0.4 Lymph # (Auto) 0.41 L [place] # (Auto) 0.1 Eos # (Auto) 0.1 Baso # (Auto) 0.0 Abs Immat Gran (auto) 0.04 H Absolute Neuts (auto) 1.9 Absolute Nucleated RBC 0.0 Nucleated RBC % 0.8 H Sodium Pending Potassium Pending Chloride Pending Carbon Dioxide Pending Anion Gap Pending BUN Pending Creatinine Pending Estim Creat Clear Calc Pending Estimated GFR Pending Glucose Pending POC Capillary Glucose Calcium Pending Phosphorus Pending Magnesium Pending Total Bilirubin Pending AST Pending ALT Pending Alkaline Phosphatase Pending Total Protein Pending Albumin Pending [place]/Lambda Ratio Pending Free [place] Light Chains Pending Free Lambda Light Chain Pending 07/22/21 06:52 WBC RBC Hgb Hct MCV MCH MCHC RDW Plt Count MPV Immature Gran % (Auto) Neut % (Auto) Lymph % (Auto) [place] % (Auto) Eos % (Auto) Baso % (Auto) Lymph # (Auto) [place] # (Auto) Eos # (Auto) Baso # (Auto) Abs Immat Gran (auto) Absolute Neuts (auto) Absolute Nucleated RBC Nucleated RBC % Sodium Potassium Chloride Carbon Dioxide Anion Gap BUN Creatinine Estim Creat Clear Calc Estimated GFR Glucose POC Capillary Glucose 84 Calcium Phosphorus Magnesium
[2021-07-22 07:09] LABS: Alanine Aminotransferase 6 U/L (6-35); Albumin Level 3.1 g/dL (3.5-5.1); Alkaline Phosphatase 55 U/L (38-126); Anion Gap 13 mmol/L (8-16); Aspartate Amino Transferase 11 U/L (14-36); Bilirubin,Total 0.2 mg/dL (0.2-1.3); Blood Urea Nitrogen 53 mg/dL (7-17); Calcium 7.9 mg/dL (8.4-10.2); Carbon Dioxide 15 mmol/L (22-30); Chloride 108 mmol/L (98-107); Estimated CRCL calculation 8 ml/min; Estimated Glomerular Filt Rate 4; Glucose 75 mg/dL (65-110); Magnesium 1.3 mg/dL (1.6-2.3); Phosphorus 10.1 mg/dL (2.5-4.5); Potassium 4.6 mmol/L (3.4-5.0); Sodium 136 mmol/L (137-145)
[2021-07-22] MEDS: FLUTICASONE/SALMETEROL 230-21 MCG INHALER 1 PUFF 2 PUFF INHALATION ×2 (07:58→20:16)
[2021-07-22] MEDS: UMECLIDINIUM BROMIDE 62.5 MCG ELLIPTA 1 PUFF INHALATION (07:58)
[2021-07-22 08:34] LABS: Glucose Point of Care 95 mg/dl (65-105)
--- NOTE | 2021-07-22 09:40 | PM.PNNEP ---
Progress Note: A&P Additional Plan 1. Jaimie has acute kidney injury. This is on top of a baseline creatinine of 2.0. The patient had an ultrasound which was negative. Urine electrolytes are non pre renal. 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 Creatinine luis just a little bit between yesterday and today. Dr. Finch ordered light chain tests as well as electrophoresis and immunofixation. Will start plasmapheresis today. She was going to get yesterday but plasmapheresis had emergencies yesterday which made them unable to come last night. They are here now and will start her. We will do another treatment tomorrow as well in the morning. Her creatinine is up to 8.9. She does not have any uremic symptoms. I am hoping plasmapheresis will turn the kidneys around. If not she will need dialysis. Notably her chest x-ray from yesterday did not show any fluid. 1.5 the patient has multiple myeloma. She will start plasmapheresis. I agree that the patient will need more myeloma therapy to reduce production of the light chains. Plasmapheresis just removes them. 2. The patient has hypertension. Her systolic is running between 110 and 170. Will hold off on adjustment of medications until she has had a couple of treatments with plasmapheresis. 3. The patient has diabetes. She is on medications per hospitalist. 4. The patient has anemia. B12 and folate are okay. T sat was low. She is on some Epogen and Iron 5. sleep apnea. The patient uses or CPAP machine 6. coronary disease status post stents. She is not having any chest pain 7. hyperlipidemia on medications long discussion with the patient. Subjective Date/time seen: 07/22/21 09:40 Interval history: patient feels about the same today. She feels weak in general. Eating well. No nausea or vomiting. No shortness of breath. Exam Narrative: WDWN in NAD skin no rash head ncat lungs clear bilaterally cor reg no rub or gallop abd BS+ nontender and soft ext no edema. Objective Data Vital Signs Vital Signs: Vital Signs - 24 hr 07/21/21 09:48 07/21/21 10:00 07/21/21 10:15 Temperature 35.9 C L 35.8 C L Pulse Rate 83 73 65 Respiratory Rate 18 18 Blood Pressure 175/63 H 178/62 H Pulse Oximetry 99 99 Oxygen Delivery Fraction of Inspired Oxygen 07/21/21 10:45 07/21/21 12:01 07/21/21 16:00 Temperature 36.4 C 36.1 C L 36.7 C Pulse Rate 62 56 L 64 Respiratory Rate 20 18 18 Blood Pressure 169/66 H 150/70 H 177/53 H Pulse Oximetry 99 98 96 Oxygen Delivery Fraction of Inspired Oxygen 07/21/21 16:51 07/21/21 16:51 07/21/21 19:46 Temperature Pulse Rate 89 74 Respiratory Rate 28 H 20 Blood Pressure Pulse Oximetry 98 94 Oxygen Delivery Room Air Room Air Fraction of Inspired Oxygen 07/21/21 19:46 07/21/21 21:27 07/21/21 22:00 Temperature Pulse Rate 74 74 61 Respiratory Rate 20 Blood Pressure Pulse Oximetry 96 Oxygen Delivery CPAP Fraction of Inspired Oxygen 07/21/21 22:00 07/21/21 20:00 07/22/21 00:00 Temperature 36.4 C L 36.7 C Pulse Rate 67 67 70 Respiratory Rate 20 20 18 Blood Pressure 170/76 H 150/74 H Pulse Oximetry 96 96 98 Oxygen Delivery CPAP Fraction of Inspired Oxygen 07/22/21 02:05 07/22/21 06:00 07/22/21 08:01 Temperature 36.1 C L Pulse Rate 66 68 Respiratory Rate 20 Blood Pressure 115/90 Pulse Oximetry 97 97 94 Oxygen Delivery CPAP Room Air Fraction of Inspired Oxygen Intake/Output Intake/Output: Intake & Output 07/19/21 07/20/21 07/21/21 07/22/21 23:59 23:59 23:59 23:59 Intake Total 3240 2880 2890 1490 Output Total 1500 1600 1950 300 Balance 1740 7510 390 5706 Meds/Results Medications: Active Medications Generic Name Dose Route Start Last Admin Trade Name Freq PRN Reason Stop Dose Admin Hydrocodone Bitart/Acetaminophen 1 tab 07/17/21 23:08 07/20/21 09:11 Hydrocodone/Acetaminophen
[2021-07-22] MEDS: CALCIUM GLUC 2,000 MG/NS 100ML 2,000 MG/100 ML BAG 100 MG IVPB (10:55)
[2021-07-22] MEDS: ALBUMIN HUMAN 5% 25 GM/500 ML BTL IV CONT (11:49)
[2021-07-22] MEDS: MAGNESIUM SULF 2 GM/WATER 50ML 2 GM/50 ML BAG IVPB (11:53)
--- NOTE | 2021-07-22 11:56 | PC.NURSE ---
Plasmaphersis Note 07/22/2021 at 0845-Patient resting in bed, no c/o pain or problems, pre-procedure. -patient is alert and oriented X 4, has no joint or back pain, this am -TPE on 07/22, 07/23/, 07/25, 07/27 & 07/[address]Henry Marques -right subclavian catheter ok to use with tip in SVC -patient's chart/labs/notes/meds and orders reviewed 0915-TPE explained to patient and all questions answered, patient signed infromed consent 0955-TPE started. Patient resting in bed, watching TV. 1025-TPE continued. Ct-yellow plasma in collect bag. 1115-TPE complete. Patient tolerated plasmapheresis with no adverse effects or events. Total fluid removed- 3400cc Total fluid replaced- 3400cc Total fluid balance- Isovolemic state at 0cc Manisha COOPER
[2021-07-22] MEDS: DOCUSATE SODIUM 100 MG CAPSULE PO (11:59)
[2021-07-22] MEDS: MAGNESIUM OXIDE 400 MG TABLET PO (11:59)
[2021-07-22] MEDS: PREGABALIN (*CRX) 25 MG CAPSULE PO (11:59)
[2021-07-22] MEDS: MONTELUKAST SODIUM 10 MG TABLET PO (12:00)
[2021-07-22] MEDS: FENOFIBRATE,MICRONIZED 48 MG TABLET PO (12:01)
[2021-07-22] MEDS: METOPROLOL TARTRATE 25 MG TABLET PO ×2 (12:01→22:08)
[2021-07-22] MEDS: ISOSORBIDE MONONITRATE 30 MG TAB.ER.24H PO (12:01)
[2021-07-22] MEDS: PRIMIDONE 50 MG TABLET PO (12:01)
[2021-07-22] MEDS: calcitrioL 0.25 MCG CAPSULE PO (12:01)
[2021-07-22] MEDS: PANTOPRAZOLE 40 MG TABLET PO (12:02)
[2021-07-22 12:04] LABS: Glucose Point of Care 86 mg/dl (65-105)
[2021-07-22] MEDS: FERROUS SULFATE 324 MG TABLET 648 MG PO (13:25)
[2021-07-22] MEDS: IRON SUCROSE COMPLEX 200 MG in SODIUM CHLORIDE 0.9% IV 50 ML 120 MG IVPB (13:25)
[2021-07-22] MEDS: CYCLOBENZAPRINE HCL 10 MG TABLET PO ×2 (13:26→22:09)
--- NOTE | 2021-07-22 13:50 | PCPTNOTE ---
The patient treatment was not able to be completed due to pt not feeling too well after having aphoresis. Pt stated that she just wanted to sleep at the moment. Will plan to continue treatment per plan of care.
[2021-07-22 16:24] LABS: Glucose Point of Care 86 mg/dl (65-105)
[2021-07-22] MEDS: SERTRALINE HCL 50 MG TABLET PO (22:09)
[2021-07-22] MEDS: PRIMIDONE 50 MG TABLET 100 MG PO (22:10)
[2021-07-22] MEDS: PREGABALIN (*CRX) 25 MG CAPSULE 75 MG PO (22:17)
[2021-07-22 22:45] LABS: Glucose Point of Care 86 mg/dl (65-105)
[2021-07-23] VITALS (11 sets, daily range): BP systolic 132–181; BP diastolic 44–87; PULSE 67–83; RESP 18–20; TEMP 36.4–37; O2SAT 96–99
[2021-07-23] MEDS: SODIUM CHLORIDE 0.9% IV 1,000 ML 100 ML IV CONT ×2 (05:49→17:16)
[2021-07-23 06:15] LABS: Basophils Percent Auto 0.9 % (0.2-1.2); Eosinophils Absolute Auto 0.2 K/mm3 (0-0.3); Hematocrit 26.6 % (37.0-47.0); Hemoglobin 8.4 g/dL (12.0-15.0); Immature Granulocyte Absolute 0.15 K/mm3 (0.00-0.031); Immature Granulocyte Percent A 4.7 % (0-0.5); Lymphocytes Percent Auto 18.8 % (18.3-44.2); Mean Corpuscular HGB Conc 31.6 g/dl (32-36); Mean Corpuscular Hemoglobin 29.9 pg (26-34); Mean Corpuscular Volume 94.7 fl (80-100); Mean Platelet Volume 11.9 fl (7.4-10.4); Monocytes Absolute Auto 0.3 K/mm3 (0.1-0.6); Monocytes Percent Auto 7.8 % (2.6-8.5); Neutrophils Percent Auto 62.8 % (45.5-73.1); Nucleated Red Blood Cells Perc 1.3 % (0.0-0.2); Platelet Count Result 95 k/mm3 (150-375); Red Blood Count 2.81 M/mm3 (4.2-5.4); Red Cell Distribution Width 15.9 % (11.5-14.5); White Blood Count 3.2 K/mm3 (4.5-10.0)
[2021-07-23 06:23] LABS: Albumin Level 3.8 g/dL (3.5-5.1); Alkaline Phosphatase 40 U/L (38-126); Anion Gap 14 mmol/L (8-16); Aspartate Amino Transferase 12 U/L (14-36); Bilirubin,Total 0.3 mg/dL (0.2-1.3); Blood Urea Nitrogen 50 mg/dL (7-17); Calcium 8.4 mg/dL (8.4-10.2); Carbon Dioxide 15 mmol/L (22-30); Chloride 108 mmol/L (98-107); Estimated CRCL calculation 8 ml/min; Estimated Glomerular Filt Rate 5; Glucose 63 mg/dL (65-110); Magnesium 1.8 mg/dL (1.6-2.3); Phosphorus 9.6 mg/dL (2.5-4.5); Sodium 137 mmol/L (137-145)
[2021-07-23 06:53] LABS: Alanine Aminotransferase < 4 U/L (6-35)
[2021-07-23 07:48] LABS: Glucose Point of Care 63 mg/dl (65-105)
[2021-07-23] MEDS: UMECLIDINIUM BROMIDE 62.5 MCG ELLIPTA 1 PUFF INHALATION (08:13)
[2021-07-23] MEDS: FLUTICASONE/SALMETEROL 230-21 MCG INHALER 1 PUFF 2 PUFF INHALATION ×2 (08:13→21:54)
[2021-07-23 08:36] LABS: Glucose Point of Care 108 mg/dl (65-105)
--- NOTE | 2021-07-23 09:38 | PCPTNOTE ---
Unable to get to the pt at this time due to her having plasmapheresis procedure. Will plan to continue treatment per plan of care.
[2021-07-23] MEDS: CALCIUM GLUC 2,000 MG/NS 100ML 2,000 MG/100 ML BAG 100 MG IVPB (10:00)
[2021-07-23] MEDS: SODIUM CHLORIDE 0.9% IV 1,000 ML 10 ML IV CONT (10:00)
[2021-07-23 11:28] LABS: Glucose Point of Care 101 mg/dl (65-105)
--- NOTE | 2021-07-23 11:51 | PC.NURSE ---
Jaimie Nix 1950 [place], Rm 302 Dr. Saad Marques MM w/ light chains/hyperviscosity Sitting up in chair. Breathing easy at rest on room air. 2+ generalized edema. States leaking when asked if still voiding. Dialysis remains on standby. Today's labs, chart, notes, meds, orders reviewed. Today's procedure confirmed. 1000 TPE began via R SC tunneled catheter, tip in SVC. Good blood flow rates. Pt back in bed, resting quietly. 1030 TPE continues. Plasma collected opaque megan. Visiting w/ nephew. VSS as charted. 1105 TPE completed as expected. Right chest gauze dressing, changed by staff nurse icu resource team earlier this morning, w/ mild bloody drainage. Site cleansed and a new light pressure dressign applied. KENNETH Giordano to notify surgeon of continued oozing. Total volume out: 3288mL Total volume in: 3293mL Fluid balance: +5mL Pheresis will return July 25, 2021 KENNETH Reynolds, QIA
[2021-07-23] MEDS: IRON SUCROSE COMPLEX 200 MG in SODIUM CHLORIDE 0.9% IV 50 ML 120 MG IVPB (11:52)
[2021-07-23] MEDS: MAGNESIUM OXIDE 400 MG TABLET PO (11:54)
[2021-07-23] MEDS: PANTOPRAZOLE 40 MG TABLET PO (11:54)
[2021-07-23] MEDS: CYCLOBENZAPRINE HCL 10 MG TABLET PO ×2 (11:54→21:49)
[2021-07-23] MEDS: calcitrioL 0.25 MCG CAPSULE PO (11:55)
[2021-07-23] MEDS: METOPROLOL TARTRATE 25 MG TABLET PO ×2 (11:56→21:49)
[2021-07-23] MEDS: LORATADINE 10 MG TABLET PO (11:57)
[2021-07-23] MEDS: ISOSORBIDE MONONITRATE 30 MG TAB.ER.24H PO (11:57)
[2021-07-23] MEDS: PRIMIDONE 50 MG TABLET PO (12:02)
[2021-07-23] MEDS: PREGABALIN (*CRX) 25 MG CAPSULE PO (12:02)
[2021-07-23] MEDS: FENOFIBRATE,MICRONIZED 48 MG TABLET PO (13:02)
[2021-07-23] MEDS: LIDOCAINE HCL 1% LOCAL INJ 20 ML VIAL 5 ML INFILTRATE (13:30)
[2021-07-23] MEDS: EPOETIN ALFA-EPBX 10,000 UNITS/ML VIAL 10000 UNITS SUB-Q (13:31)
--- NOTE | 2021-07-23 13:44 | P.PNIM_ITS ---
Progress Note: A&P Assessment and Plan (1) Acute on chronic kidney failure: Code(s): N17.9 - Acute kidney failure, unspecified; N18.9 - Chronic kidney disease, unspecified Status: Acute Assessment and Plan: Etiology not entirely clear though may in part be due to dehydration given reports of poor oral intake over the past several days. She does have multiple myeloma which could also have precipitated the acute kidney injury. At this time will avoid nephrotoxic agents and cautiously hydrate overnight. Dr. Finch and the nephrologists were consulted by the ED physician and their input is appreciated. (2) Acute on chronic anemia: Code(s): D64.9 - Anemia, unspecified Status: Acute Assessment and Plan: Transfused to a stable hemoglobin. (3) Multiple myeloma: Code(s): C90.00 - Multiple myeloma not having achieved remission Status: Chronic Assessment and Plan: Case discussed with Dr. Finch who recommends holding her oral chemotherapy at this time. (4) Insulin dependent type 2 diabetes mellitus: Code(s): E11.9 - Type 2 diabetes mellitus without complications; Z79.4 - senior living (current) use of insulin Status: Acute Assessment and Plan: Continue basal insulin. Initiate sliding scale insulin, Accu-Cheks, and hypoglycemic protocol. (5) Obstructive sleep apnea on CPAP: Code(s): G47.33 - Obstructive sleep apnea (adult) (pediatric); Z99.89 - Dependence on other enabling machines and devices Status: Acute Assessment and Plan: CPAP will be provided for the patient to use while hospitalized. (6) Hypertension: Code(s): I10 - Essential (primary) hypertension Status: Acute Assessment and Plan: Blood pressures were reviewed and her systolics have been running a bit high. Antihypertensives will be reviewed and resumed as appropriate. (7) Paroxysmal atrial fibrillation: Code(s): I48.0 - Paroxysmal atrial fibrillation Status: Acute Assessment and Plan: Currently sounds to be in a sinus rhythm. Additional Plan 07/18/2021 interval history: Patient is a 76-year-old female with history for multiple myeloma presented with complaint of generalized weakness her hemoglobin was 7.6 upon arrival patient was given 2 units of pack RBC, her hemoglobin is 9, patient states is feeling little better now however complains of pain in the neck, will apply Lidoderm patch, will continue Lyrica and [place] and to further evaluate with C-spine x-ray, her urine is suspicious for UTI, started the patient on ceftriaxone follow-up on urine and blood culture will also consult her oncologist for further recommendation, 07/19/2021 interval history: Patient is a 76-year-old female with history for multiple myeloma presented with complaint of generalized weakness her hemoglobin was 7.6, upon arrival patient was given 2 units of pack RBC, her hemoglobin was 9, and today her hgb is 8.6, she also has SOLANEG upon arrival herBUN was 32 and Scr was 4 today her BUN is 50 and Scr is 6.7 most likely due to dehydration, poor PO intake, her kidney US is normal, will start gentle hydration and consult hospital admitting clerk for further evaluation, and patient states is feeling little better now however complains of pain in the neck, will apply Lidoderm patch, will continue Lyrica and [place] and to further evaluate with C-spine x-ray, which showed Severe cervical spondylosis. will consult ortho, her urine is suspicious for UTI, started the patient on ceftriaxone follow-up on urine and blood culture will also consult her oncologist for further re
--- NOTE | 2021-07-23 13:51 | PCPTNOTE ---
Attempted PT treatment this afternoon. RN had just left the room stating that part of her port was leaking and the doctor had to come in and stitch it up. The RN states that she should probably rest for a little while. Will continue per plan of care.
--- NOTE | 2021-07-23 14:42 | PM.PNNEP ---
Progress Note: A&P Additional Plan 1. Jaimie has acute kidney injury. This is on top of a baseline creatinine of 2.0. The patient had an ultrasound which was negative. Urine electrolytes are non pre renal. 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 Creatinine luis just a little bit between yesterday and today. Dr. Finch ordered light chain tests as well as electrophoresis and immunofixation. she has had plasmapheresis for two treatments. Will check another set of lytes change tomorrow. Her BUN and creatinine have improved somewhat. Will see how they look tomorrow as well. Will continue daily assessments of whether she needs dialysis or not. 1.5 the patient has multiple myeloma. She is getting plasmapheresis. I agree that the patient will need more myeloma therapy to reduce production of the light chains. Plasmapheresis just removes them. Dr Finch is seeing patient. will discuss with him 2. The patient has hypertension. Her systolic is running between 110 and 170. she is on metoprolol 25 mg a day. Pulse is 76. Will increase metoprolol to 50. 3. The patient has diabetes. She is on medications per hospitalist. 4. The patient has anemia. B12 and folate are okay. T sat was low. She is on some Epogen and Iron 5. sleep apnea. The patient uses or CPAP machine 6. coronary disease status post stents. She is not having any chest pain 7. hyperlipidemia on medications Subjective Date/time seen: 07/23/21 14:42 Interval history: patient feels about the same today. She had plasmapheresis treatment #2 This morning. She feels somewhat weak but about the same as yesterday. No shortness of breath. She is eating okay. No nausea. Appetite is fine Exam Narrative: WDWN in NAD skin no rash head ncat lungs clear bilaterally cor reg no rub or gallop abd BS+ nontender and soft ext trace edema. Objective Data Vital Signs Vital Signs: Vital Signs - 24 hr 07/22/21 20:00 07/22/21 20:26 07/22/21 22:08 Temperature 36.8 C Pulse Rate 77 78 78 Respiratory Rate 20 Blood Pressure 153/60 H Pulse Oximetry 95 95 Oxygen Delivery Room Air Fraction of Inspired Oxygen 07/22/21 22:30 07/23/21 05:49 07/22/21 20:00 Temperature 36.7 C Pulse Rate 69 69 69 Respiratory Rate 20 20 Blood Pressure 132/46 L Pulse Oximetry 96 98 98 Oxygen Delivery CPAP CPAP Fraction of Inspired Oxygen 07/23/21 10:00 07/23/21 10:47 07/23/21 10:15 Temperature 36.9 C Pulse Rate 67 77 Respiratory Rate 18 20 Blood Pressure 159/54 H Pulse Oximetry 98 Oxygen Delivery Fraction of Inspired Oxygen 07/23/21 11:05 07/23/21 08:30 07/23/21 10:15 Temperature 36.4 C Pulse Rate 75 Respiratory Rate 20 Blood Pressure 166/44 H Pulse Oximetry Oxygen Delivery Room Air Fraction of Inspired Oxygen 07/23/21 10:30 07/23/21 11:05 07/23/21 11:56 Temperature Pulse Rate 76 Respiratory Rate Blood Pressure 162/45 H 157/48 H Pulse Oximetry 99 Oxygen Delivery Fraction of Inspired Oxygen Intake/Output Intake/Output: Intake & Output 07/20/21 07/21/21 07/22/21 07/23/21 23:59 23:59 23:59 23:59 Intake Total 2880 2890 4080 1670 Output Total 1600 1950 1800 1000 Balance 9532 841 7852 670 Meds/Results Medications: Active Medications Generic Name Dose Route Start Last Admin Trade Name Freq PRN Reason Stop Dose Admin Hydrocodone Bitart/Acetaminophen 1 tab 07/17/21 23:08 07/20/21 09:11 Hydrocodone/Acetaminophen (*Crx) 5-325 Mg Tablet PO 1 tab Q6H PRN Administration Pain Rated 4-6 Hydrocodone Bitart/Acetaminophen 1 tab 07/18/21 12:52 07/22/21 21:47 Hydrocodone/Acetaminophen (*Crx) 7.5-325 Mg Tablet PO 1 tab Q6H PRN Administration Pain Rated 7-10 Albuterol 2 puff 07/17/21 20:51 07/21/21 16:49 Albuterol Sulfate (*Sp) Aerosol 1 Puff INHALATION 2 puff Q4H PRN Administration Traci
[2021-07-23] MEDS: FERROUS SULFATE 324 MG TABLET 648 MG PO (15:12)
--- NOTE | 2021-07-23 15:15 | PM.PNGS ---
Progress Note: A&P Assessment and Plan (1) Complication of vascular access for dialysis: Code(s): T82.9XXA - Unspecified complication of cardiac and vascular prosthetic device, implant and graft, initial encounter Status: Acute Assessment and Plan: skin bleeding due to abnormal platelet function and coagulation dysfunction. Exit site of catheter was sutured and bleeding controlled. Routine wound care from here. Subjective Subjective Date/Time Seen: 07/23/21 15:15 Patient reports: other ( was having bleeding at exit site of tunneled central venous catheter placed Friday) Review of Systems Review of Systems: All systems reviewed & are unremarkable except as noted in HPI and below ( HPI) Exam Const: General: cooperative, healthy appearing, alert and awake Chest: Chest palpation & inspection: abnormal inspection of the chest ( continues to have very slow bleeding from skin edges at exit site CVC) Other: after prep with Betadine and local anesthetic infiltrated, I placed a pursestring suture of 3-0 nylon around the exit site of the tunneled dura flow catheter. After placement, no further bleeding from the catheter site was noted. Redressed with 4x4s and transparent dressing. Objective Data Vital Signs Vital Signs: Vital Signs - 24 hr 07/22/21 20:00 07/22/21 20:26 07/22/21 22:08 Temperature 36.8 C Pulse Rate 77 78 78 Respiratory Rate 20 Blood Pressure 153/60 H Pulse Oximetry 95 95 Oxygen Delivery Room Air Fraction of Inspired Oxygen 07/22/21 22:30 07/23/21 05:49 07/22/21 20:00 Temperature 36.7 C Pulse Rate 69 69 69 Respiratory Rate 20 20 Blood Pressure 132/46 L Pulse Oximetry 96 98 98 Oxygen Delivery CPAP CPAP Fraction of Inspired Oxygen 21 07/23/21 10:00 07/23/21 10:47 07/23/21 10:15 Temperature 36.9 C Pulse Rate 67 77 Respiratory Rate 18 20 Blood Pressure 159/54 H Pulse Oximetry 98 Oxygen Delivery Fraction of Inspired Oxygen 07/23/21 11:05 07/23/21 08:30 07/23/21 10:15 Temperature 36.4 C Pulse Rate 75 Respiratory Rate 20 Blood Pressure 166/44 H Pulse Oximetry Oxygen Delivery Room Air Fraction of Inspired Oxygen 07/23/21 10:30 07/23/21 11:05 07/23/21 11:56 Temperature Pulse Rate 76 Respiratory Rate Blood Pressure 162/45 H 157/48 H Pulse Oximetry 99 Oxygen Delivery Fraction of Inspired Oxygen Intake/Output Intake/Output: Intake & Output 07/20/21 07/21/21 07/22/21 07/23/21 23:59 23:59 23:59 23:59 Intake Total 2880 2890 4080 2070 Output Total 1600 1950 1800 1300 Balance 8839 901 0685 770 Meds/Results Medications: Active Medications Generic Name Dose Route Start Last Admin Trade Name Freq PRN Reason Stop Dose Admin Hydrocodone Bitart/Acetaminophen 1 tab 07/17/21 23:08 07/20/21 09:11 Hydrocodone/Acetaminophen (*Crx) 5-325 Mg Tablet PO 1 tab Q6H PRN Administration Pain Rated 4-6 Hydrocodone Bitart/Acetaminophen 1 tab 07/18/21 12:52 07/22/21 21:47 Hydrocodone/Acetaminophen (*Crx) 7.5-325 Mg Tablet PO 1 tab Q6H PRN Administration Pain Rated 7-10 Albuterol 2 puff 07/17/21 20:51 07/21/21 16:49 Albuterol Sulfate (*Sp) Aerosol 1 Puff INHALATION 2 puff Q4H PRN Administration Shortness Of Breath Aspirin 81 mg 07/18/21 08:00 07/21/21 09:43 Aspirin 81 Mg Chewable Tablet PO 81 mg DAILY@0800 JERROD Administration Calcitriol 0.25 mcg 07/18/21 09:00 07/23/21 11:55 Calcitriol 0.25 Mcg Capsule PO 0.25 mcg DAILY JERROD Administration Cyclobenzaprine HCl 10 mg 07/18/21 12:55 07/23/21 11:54 Cyclobenzaprine Hcl 10 Mg Tablet PO 10 mg Q12HR JERROD Administration Dabigatran 150 mg 07/18/21 09:00 07/23/21 11:01 Dabigatran Etexilate 150 Mg Capsule PO Not Given BID JERROD Dextrose 12.5 gm 07/17/21 19:58 07/21/21 06:50 Dextrose 50% 25 Gm/50 Ml Syringe IV PUSH 12.5 gm PRN PRN Administration Hypoglycemia
[2021-07-23 15:22] LABS: Kappa\\Lambda Light Chains 0.01 (0.26-1.65); Lambda Light Chain 3102.9 mg/L (5.7-26.3)
[2021-07-23 16:28] LABS: Glucose Point of Care 141 mg/dl (65-105)
[2021-07-23] MEDS: DOCUSATE SODIUM 100 MG CAPSULE PO (17:17)
[2021-07-23] MEDS: polyethylene glycoL 3350 17 GM POWD.PACK PO (17:43)
[2021-07-23] MEDS: OMEGA 3 POLYUNSAT FATTY ACIDS 1 GM CAP 2 GM PO (17:43)
[2021-07-23 17:56] LABS: Kappa\\Lambda Light Chains 0.01 (0.26-1.65); Lambda Light Chain 3297.4 mg/L (5.7-26.3)
--- NOTE | 2021-07-23 18:28 | WPDONCPN ---
Progress Note: A/P - Additional Plan Multiple myeloma. Labs showed elevated lambda light chain of 3297. Immunofixation studies are pending. Patient had 2 rounds of plasmapheresis and light chain levels after the plasmapheresis is pending. I have discussed this case with Dr. Marques again today. My plan is to start her on treatment with Velcade and dexamethasone. Will start her on dexamethasone 40 mg daily for 3 days then once a week after the renal biopsy. I will add Velcade as an outpatient. Anemia secondary to chronic kidney disease. Patient is on Procrit along with iron. Left noted that showed slightly low iron saturation her ferritin is normal. Vitamin B12 is also normal. Acute renal failure. Dr. Marques input is noted. Tremors. Patient is on primidone. - Time Spent With Patient Total time spent is greater than 50% in coordination of care (as documented) at patient's floor/unit and/or counseling patient: 15 - 25 minutes Subjective Interval history: Multiple myeloma Acute renal failure Review of Systems - Review of Systems Patient complain of tremors involving both hands otherwise feeling slightly better today. Denies any diarrhea but does have some constipation. Denies any neck pain. No fevers and chills. - Neurologic Reports system reviewed and no additional complaints, except as documented, Reports hearing normal, Reports numbness, Reports weakness, Denies abnormal speech, Denies abnormal gait, Denies confusion, Denies headache(s), Denies other visual disturbances Exam Narrative: Lungs are clear to auscultation bilaterally Cardiovascular regular rate rhythm no murmurs Abdomen soft nontender nondistended bowel sounds are positive Extremities no edema PN: Objective Data - Labs CBC & Chem 7: 07/23/21 05:44 07/23/21 05:44 Labs: Laboratory Results - last 24 hr 07/20/21 07/21/21 07/22/21 11:35 06:22 22:12 WBC RBC Hgb Hct MCV MCH MCHC RDW Plt Count MPV Immature Gran % (Auto) Neut % (Auto) Lymph % (Auto) [place] % (Auto) Eos % (Auto) Baso % (Auto) Lymph # (Auto) [place] # (Auto) Eos # (Auto) Baso # (Auto) Abs Immat Gran (auto) Absolute Neuts (auto) Absolute Nucleated RBC Nucleated RBC % Sodium Potassium Chloride Carbon Dioxide Anion Gap BUN Creatinine Estim Creat Clear Calc Estimated GFR Glucose POC Capillary Glucose 86 Calcium Phosphorus Magnesium Total Bilirubin AST ALT Alkaline Phosphatase Total Protein Albumin [place]/Lambda Ratio 0.01 L 0.01 L Free [place] Light Chains 30.7 H 29.6 H Free Lambda Light Chain 3102.9 H 3297.4 H 07/23/21 07/23/21 07/23/21 05:44 05:44 07:17 WBC 3.2 L RBC 2.81 L Hgb 8.4 L Hct 26.6 L MCV 94.7 MCH 29.9 MCHC 31.6 L RDW 15.9 H Plt Count 95 L MPV 11.9 H Immature Gran % (Auto) 4.7 H Neut % (Auto) 62.8 Lymph % (Auto) 18.8 [place] % (Auto) 7.8 Eos % (Auto) 5.0 H Baso % (Auto) 0.9 Lymph # (Auto) 0.60 L [place] # (Auto) 0.3 Eos # (Auto) 0.2 Baso # (Auto) 0.0 Abs Immat Gran (auto) 0.15 H Absolute Neuts (auto) 2.0 Absolute Nucleated RBC 0.0 Nucleated RBC % 1.3 H Sodium 137 Potassium 5.0 Chloride 108 H Carbon Dioxide 15 L Anion Gap 14 BUN 50 H Creatinine 8.20 H Estim Creat Clear Calc 8 Estimated GFR 5 L Glucose 63 L POC Capillary Glucose 63 L Calcium 8.4 Phosphorus 9.6 H Magnesium 1.8 Total Bilirubin 0.3 AST 12 L ALT < 4 L Alkaline Phosphatase 40 Total Protein 6.0 L Albumin 3.8 [place]/Lambda Ratio Free [place] Light Chains Free Lambda Light Chain 07/23/21 07/23/21 07/23/21 08:34 11:26 16:07 WBC RBC Hgb Hct MCV MCH MCHC RDW Plt Count MPV Immature Gran % (Auto) Neut % (Auto) Lymph % (Auto)
[2021-07-23] MEDS: SERTRALINE HCL 50 MG TABLET PO (21:49)
[2021-07-23] MEDS: PRIMIDONE 50 MG TABLET 100 MG PO (21:50)
[2021-07-23] MEDS: INSULIN GLARGINE (LANTUS) 1,000 UNITS/10 ML VIAL 94 UNITS SUB-Q (21:51)
[2021-07-23] MEDS: PREGABALIN (*CRX) 25 MG CAPSULE 75 MG PO (21:52)
[2021-07-24] VITALS (7 sets, daily range): BP systolic 114–155; BP diastolic 64–73; PULSE 63–83; RESP 20; TEMP 36.3–36.8; O2SAT 95–99
[2021-07-24 06:02] LABS: Glucose Point of Care 166 mg/dl (65-105)
[2021-07-24] MEDS: OMEGA 3 POLYUNSAT FATTY ACIDS 1 GM CAP 2 GM PO ×2 (06:09→17:35)
[2021-07-24 06:31] LABS: Eosinophils Absolute Auto 0.1 K/mm3 (0-0.3); Eosinophils Percent Auto 4.2 % (0-4.4); Hemoglobin 7.6 g/dL (12.0-15.0); Immature Granulocyte Absolute 0.12 K/mm3 (0.00-0.031); Immature Granulocyte Percent A 4.2 % (0-0.5); Immature Platelet Fraction Pct 4.6 % (0.9-11.2); Lymphocytes Absolute Auto 0.54 K/mm3 (0.9-3.2); Lymphocytes Percent Auto 18.9 % (18.3-44.2); Mean Corpuscular HGB Conc 29.2 g/dl (32-36); Mean Corpuscular Hemoglobin 29.6 pg (26-34); Mean Corpuscular Volume 101.2 fl (80-100); Mean Platelet Volume 11.6 fl (7.4-10.4); Monocytes Absolute Auto 0.2 K/mm3 (0.1-0.6); Monocytes Percent Auto 7.3 % (2.6-8.5); Neutrophils Absolute Auto 1.8 K/mm3 (1.3-6.7); Neutrophils Percent Auto 64.4 % (45.5-73.1); Platelet Count Result 70 k/mm3 (150-375); Red Blood Count 2.57 M/mm3 (4.2-5.4); White Blood Count 2.9 K/mm3 (4.5-10.0)
[2021-07-24 06:40] LABS: Albumin Level 3.5 g/dL (3.5-5.1); Alkaline Phosphatase 30 U/L (38-126); Anion Gap 14 mmol/L (8-16); Aspartate Amino Transferase 10 U/L (14-36); Bilirubin,Total 0.3 mg/dL (0.2-1.3); Blood Urea Nitrogen 47 mg/dL (7-17); Calcium 8.4 mg/dL (8.4-10.2); Carbon Dioxide 11 mmol/L (22-30); Chloride 113 mmol/L (98-107); Estimated CRCL calculation 9 ml/min; Estimated Glomerular Filt Rate 5; Glucose 74 mg/dL (65-110); Magnesium 1.8 mg/dL (1.6-2.3); Sodium 138 mmol/L (137-145)
[2021-07-24 06:41] LABS: Alanine Aminotransferase < 4 U/L (6-35)
[2021-07-24 07:09] LABS: Hypochromasia 2+ (NORMAL)
[2021-07-24 07:10] LABS: Anisocytosis 2+ (NORMAL); Poikilocytosis 1+ (NORMAL)
[2021-07-24] MEDS: UMECLIDINIUM BROMIDE 62.5 MCG ELLIPTA 1 PUFF INHALATION (07:39)
[2021-07-24] MEDS: FLUTICASONE/SALMETEROL 230-21 MCG INHALER 1 PUFF 2 PUFF INHALATION ×2 (07:40→20:20)
[2021-07-24 07:45] LABS: Glucose Point of Care 73 mg/dl (65-105)
[2021-07-24] MEDS: calcitrioL 0.25 MCG CAPSULE PO (09:41)
[2021-07-24] MEDS: MAGNESIUM OXIDE 400 MG TABLET PO (09:41)
[2021-07-24] MEDS: METOPROLOL TARTRATE 25 MG TABLET PO ×2 (09:41→20:53)
[2021-07-24] MEDS: PRIMIDONE 50 MG TABLET PO (09:41)
[2021-07-24] MEDS: LORATADINE 10 MG TABLET PO (09:41)
[2021-07-24] MEDS: MONTELUKAST SODIUM 10 MG TABLET PO (09:41)
[2021-07-24] MEDS: PANTOPRAZOLE 40 MG TABLET PO (09:41)
[2021-07-24] MEDS: CYCLOBENZAPRINE HCL 10 MG TABLET PO ×2 (09:42→20:53)
[2021-07-24] MEDS: FENOFIBRATE,MICRONIZED 48 MG TABLET PO (09:42)
[2021-07-24] MEDS: ISOSORBIDE MONONITRATE 30 MG TAB.ER.24H PO (09:42)
[2021-07-24] MEDS: DOCUSATE SODIUM 100 MG CAPSULE PO ×2 (09:42→17:36)
[2021-07-24] MEDS: PREGABALIN (*CRX) 25 MG CAPSULE PO (09:44)
[2021-07-24] MEDS: polyethylene glycoL 3350 17 GM POWD.PACK PO (10:21)
[2021-07-24] MEDS: SODIUM CHLORIDE 0.9% IV 1,000 ML 100 ML IV CONT (10:25)
[2021-07-24] MEDS: IRON SUCROSE COMPLEX 200 MG in SODIUM CHLORIDE 0.9% IV 50 ML 120 MG IVPB (10:25)
[2021-07-24 11:18] LABS: Glucose Point of Care 161 mg/dl (65-105)
[2021-07-24] MEDS: FERROUS SULFATE 324 MG TABLET 648 MG PO (15:11)
--- NOTE | 2021-07-24 15:31 | PM.PNNEP ---
Progress Note: A&P Additional Plan 1. Jaimie has acute kidney injury. This is on top of a baseline creatinine of 2.0. The patient had an ultrasound which was negative. Urine electrolytes are non pre renal. 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 Creatinine fell a little yesterday a little more today. BUN is reasonablly better at 47. Dr. Finch ordered light chain tests as well as electrophoresis and immunofixation. she has had plasmapheresis for two treatments. Dr. Finch and I had a long discussion. He feels that we need a renal biopsy before committing to more chemotherapy. We can do a biopsy on . The aspirin should be gone by then. I asked plasmapheresis to use some plasma tomorrow to help with any coagulation defects. She has some swelling. Will stop the IV fluids. She is eating pretty well. Will give her a dose of diuretics today. 1.5 the patient has multiple myeloma. She is getting plasmapheresis. I agree that the patient will need more myeloma therapy to reduce production of the light chains. Plasmapheresis just removes them. Dr Finch is seeing patient. 2. The patient has hypertension. Her systolic is running between 110 and 170. she is on metoprolol 25 mg a day. Pulse is 76. Will increase metoprolol to 50. 3. The patient has diabetes. She is on medications per hospitalist. 4. The patient has anemia. B12 and folate are okay. T sat was low. She is on some Epogen and Iron 5. sleep apnea. The patient uses or CPAP machine 6. coronary disease status post stents. She is not having any chest pain 7. hyperlipidemia on medications Subjective Date/time seen: 07/24/21 15:31 Interval history: patient feels about the same today. She had a little bit of shortness of breath this morning she feels okay now. She does have some swelling in her legs. Exam Narrative: WDWN in NAD skin no rash head ncat lungs clear bilaterally cor reg no rub or gallop abd BS+ nontender and soft ext 1+ bilateral edema. Objective Data Vital Signs Vital Signs: Vital Signs - 24 hr 07/23/21 21:30 07/23/21 21:49 07/23/21 20:00 Temperature 37.0 C Pulse Rate 80 83 Respiratory Rate 20 Blood Pressure 136/87 Pulse Oximetry 98 Oxygen Delivery Room Air 07/23/21 23:52 07/24/21 02:47 07/24/21 05:33 Temperature 36.7 C Pulse Rate 67 71 82 Respiratory Rate 20 Blood Pressure 114/73 Pulse Oximetry 96 95 96 Oxygen Delivery CPAP CPAP 07/24/21 13:52 Temperature 36.3 C L Pulse Rate 63 Respiratory Rate 20 Blood Pressure 148/66 H Pulse Oximetry 99 Oxygen Delivery Intake/Output Intake/Output: Intake & Output 07/21/21 07/22/21 07/23/21 07/24/21 23:59 23:59 23:59 23:59 Intake Total 2890 4080 3550 1730 Output Total 1950 1800 1300 1550 Balance 940 2280 2250 180 Meds/Results Medications: Active Medications Generic Name Dose Route Start Last Admin Trade Name Freq PRN Reason Stop Dose Admin Hydrocodone Bitart/Acetaminophen 1 tab 07/17/21 23:08 07/20/21 09:11 Hydrocodone/Acetaminophen (*Crx) 5-325 Mg Tablet PO 1 tab Q6H PRN Administration Pain Rated 4-6 Hydrocodone Bitart/Acetaminophen 1 tab 07/18/21 12:52 07/22/21 21:47 Hydrocodone/Acetaminophen (*Crx) 7.5-325 Mg Tablet PO 1 tab Q6H PRN Administration Pain Rated 7-10 Albuterol 2 puff 07/17/21 20:51 07/21/21 16:49 Albuterol Sulfate (*Sp) Aerosol 1 Puff INHALATION 2 puff Q4H PRN Administration Shortness Of Breath Aspirin 81 mg 07/18/21 08:00 07/21/21 09:43 Aspirin 81 Mg Chewable Tablet PO 81 mg DAILY@0800 JERROD Administration Calcitriol 0.25 mcg 07/18/21 09:00 07/24/21 09:41 Calcitriol 0.25 Mcg Capsule PO 0.25 mcg DAILY JERROD Administration Cyclobenzaprine HCl 10 mg 07/18/21 12:55 07/24/21 09:42 Cyclobenzaprine Hcl 10 Mg Tablet PO 10 mg Q12HR JERROD Administration Dabigatran 150 mg 07/18/21 09:0
--- NOTE | 2021-07-24 15:37 | PM.IMPN ---
Progress Note: A&P Assessment and Plan (1) Acute on chronic kidney failure: Code(s): N17.9 - Acute kidney failure, unspecified; N18.9 - Chronic kidney disease, unspecified Status: Acute Assessment and Plan: Etiology not entirely clear though may in part be due to dehydration given reports of poor oral intake over the past several days. She does have multiple myeloma which could also have precipitated the acute kidney injury. At this time will avoid nephrotoxic agents and cautiously hydrate overnight. Dr. Finch and the nephrologists were consulted by the ED physician and their input is appreciated. (2) Acute on chronic anemia: Code(s): D64.9 - Anemia, unspecified Status: Acute Assessment and Plan: Transfused to a stable hemoglobin. (3) Multiple myeloma: Code(s): C90.00 - Multiple myeloma not having achieved remission Status: Chronic Assessment and Plan: Case discussed with Dr. Finch who recommends holding her oral chemotherapy at this time. (4) Insulin dependent type 2 diabetes mellitus: Code(s): E11.9 - Type 2 diabetes mellitus without complications; Z79.4 - [facility] (current) use of insulin Status: Acute Assessment and Plan: Continue basal insulin. Initiate sliding scale insulin, Accu-Cheks, and hypoglycemic protocol. (5) Obstructive sleep apnea on CPAP: Code(s): G47.33 - Obstructive sleep apnea (adult) (pediatric); Z99.89 - Dependence on other enabling machines and devices Status: Acute Assessment and Plan: CPAP will be provided for the patient to use while hospitalized. (6) Hypertension: Code(s): I10 - Essential (primary) hypertension Status: Acute Assessment and Plan: Blood pressures were reviewed and her systolics have been running a bit high. Antihypertensives will be reviewed and resumed as appropriate. (7) Paroxysmal atrial fibrillation: Code(s): I48.0 - Paroxysmal atrial fibrillation Status: Acute Assessment and Plan: Currently sounds to be in a sinus rhythm. Additional Plan 07/18/2021 interval history: Patient is a 76-year-old female with history for multiple myeloma presented with complaint of generalized weakness her hemoglobin was 7.6 upon arrival patient was given 2 units of pack RBC, her hemoglobin is 9, patient states is feeling little better now however complains of pain in the neck, will apply Lidoderm patch, will continue Lyrica and [place] and to further evaluate with C-spine x-ray, her urine is suspicious for UTI, started the patient on ceftriaxone follow-up on urine and blood culture will also consult her oncologist for further recommendation, 07/19/2021 interval history: Patient is a 76-year-old female with history for multiple myeloma presented with complaint of generalized weakness her hemoglobin was 7.6, upon arrival patient was given 2 units of pack RBC, her hemoglobin was 9, and today her hgb is 8.6, she also has SOLANGE upon arrival herBUN was 32 and Scr was 4 today her BUN is 50 and Scr is 6.7 most likely due to dehydration, poor PO intake, her kidney US is normal, will start gentle hydration and consult internal grinder set up operator for further evaluation, and patient states is feeling little better now however complains of pain in the neck, will apply Lidoderm patch, will continue Lyrica and [place] and to further evaluate with C-spine x-ray, which showed Severe cervical spondylosis. will consult ortho, her urine is suspicious for UTI, started the patient on ceftriaxone follow-up on urine and blood culture will also consult her oncologist for further recommendation. 07/20/2021 interval history: Patient is a 76-year-old female with history for multiple myeloma presented with complaint of generalized weakness her hemoglobin was 7.6, upon arrival patient was given 2 units of pack RBC, her hemoglobin was 9, and today her hgb is 8.6, she also has SOLANGE upon arrival herBUN was 32 and Scr
[2021-07-24 16:18] LABS: Glucose Point of Care 94 mg/dl (65-105)
[2021-07-24] MEDS: BUMETANIDE INJ 1 MG/4 ML VIAL 2 MG IV PUSH (17:35)
[2021-07-24 18:48] LABS: Hepatitis B Core Ab Total Nonreactive (Nonreactive)
[2021-07-24] MEDS: PREGABALIN (*CRX) 25 MG CAPSULE 75 MG PO (20:52)
[2021-07-24] MEDS: PRIMIDONE 50 MG TABLET 100 MG PO (20:52)
[2021-07-24] MEDS: SERTRALINE HCL 50 MG TABLET PO (20:53)
[2021-07-24 21:03] LABS: Glucose Point of Care 71 mg/dl (65-105)
--- NOTE | 2021-07-24 22:16 | PC.NURSE ---
patient blood glucose at poc was 71. Held evening dose of Lantus and offered patient juice before bedtime.
[2021-07-25] VITALS (21 sets, daily range): BP systolic 143–195; BP diastolic 51–78; PULSE 63–93; RESP 16–20; TEMP 36.5–37.3; O2SAT 93–100
[2021-07-25] MEDS: GLUCOSE ORAL GEL 15 GM OF GLUCSE IN 37.5 GM TUBE PO (02:05)
[2021-07-25 02:35] LABS: Glucose Point of Care 65 mg/dl (65-105)
[2021-07-25 02:35] LABS: Glucose Point of Care 101 mg/dl (65-105)
[2021-07-25] MEDS: WATER FOR IRRIGATION, STERILE 1,000 ML BOTTLE 1000 ML (05:39)
[2021-07-25] MEDS: OMEGA 3 POLYUNSAT FATTY ACIDS 1 GM CAP 2 GM PO ×2 (05:39→17:20)
[2021-07-25 06:14] LABS: Basophils Percent Auto 0.9 % (0.2-1.2); Eosinophils Absolute Auto 0.1 K/mm3 (0-0.3); Eosinophils Percent Auto 2.4 % (0-4.4); Hematocrit 23.4 % (37.0-47.0); Hemoglobin 7.4 g/dL (12.0-15.0); Immature Granulocyte Absolute 0.14 K/mm3 (0.00-0.031); Immature Granulocyte Percent A 4.3 % (0-0.5); Lymphocytes Absolute Auto 0.61 K/mm3 (0.9-3.2); Lymphocytes Percent Auto 18.6 % (18.3-44.2); Mean Corpuscular HGB Conc 31.6 g/dl (32-36); Mean Corpuscular Volume 94.7 fl (80-100); Mean Platelet Volume 11.6 fl (7.4-10.4); Monocytes Absolute Auto 0.2 K/mm3 (0.1-0.6); Monocytes Percent Auto 4.6 % (2.6-8.5); Neutrophils Absolute Auto 2.3 K/mm3 (1.3-6.7); Neutrophils Percent Auto 69.2 % (45.5-73.1); Nucleated Red Blood Cells Perc 0.6 % (0.0-0.2); Platelet Count Result 86 k/mm3 (150-375); Red Blood Count 2.47 M/mm3 (4.2-5.4); Red Cell Distribution Width 15.9 % (11.5-14.5); White Blood Count 3.3 K/mm3 (4.5-10.0)
[2021-07-25 06:43] LABS: Albumin Level 3.5 g/dL (3.5-5.1); Alkaline Phosphatase 36 U/L (38-126); Anion Gap 12 mmol/L (8-16); Aspartate Amino Transferase 11 U/L (14-36); Bilirubin,Total 0.2 mg/dL (0.2-1.3); Blood Urea Nitrogen 45 mg/dL (7-17); Calcium 8.6 mg/dL (8.4-10.2); Carbon Dioxide 14 mmol/L (22-30); Chloride 115 mmol/L (98-107); Estimated CRCL calculation 9 ml/min; Estimated Glomerular Filt Rate 5; Glucose 79 mg/dL (65-110); Magnesium 1.7 mg/dL (1.6-2.3); Phosphorus 8.3 mg/dL (2.5-4.5); Sodium 141 mmol/L (137-145)
[2021-07-25 06:45] LABS: Alanine Aminotransferase < 4 U/L (6-35)
[2021-07-25 07:25] LABS: Glucose Point of Care 95 mg/dl (65-105)
[2021-07-25] MEDS: UMECLIDINIUM BROMIDE 62.5 MCG ELLIPTA 1 PUFF INHALATION (07:57)
[2021-07-25] MEDS: FLUTICASONE/SALMETEROL 230-21 MCG INHALER 1 PUFF 2 PUFF INHALATION ×2 (07:57→20:58)
[2021-07-25 09:06] LABS: Kappa\\Lambda Light Chains 0.01 (0.26-1.65); Lambda Light Chain 3739.6 mg/L (5.7-26.3)
--- NOTE | 2021-07-25 10:18 | PM.PNNEP ---
Progress Note: A&P Additional Plan 1. Jaimie has acute kidney injury. This is on top of a baseline creatinine of 2.0. The patient had an ultrasound which was negative. Urine electrolytes are non pre renal. 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 BUN and creatinine are both about the same today.\ CO2 has dropped. This could be due to hydration or due to poor generation of bicarb from the kidneys or both. Dr. Finch ordered light chain tests as well as electrophoresis and immunofixation. So far light chain amount has not decreased, however the most recent 1 was 612 which was the morning of her 1st treatment. she has had plasmapheresis for two treatments. She will get her 3rd today. With all the weakness, acidosis, etc. and since the creatinine has stopped improving I think we ought to do a dialysis tomorrow. So the plan is to do plasmapheresis today, dialysis and plasmapheresis tomorrow, kidney biopsy on Friday, and plasmapheresis on Friday. I discussed at length with the patient. We discussed the risks benefits alternatives and process of the kidney biopsy. She remembers it from the last time she had it. She does remember being uncomfortable. She will talk with the radiologist about this issue to see if he can make this a more comfortable experience. She agrees to proceed. Swelling is about the same so I will give her more diuretics today. 1.5 the patient has multiple myeloma. She is getting plasmapheresis. I agree that the patient will need more myeloma therapy to reduce production of the light chains. Plasmapheresis just removes them. Dr Finch is seeing patient. 2. The patient has hypertension. Her systolic is running between 114 and 155. she is on metoprolol 50mg per day. 3. The patient has diabetes. She is on medications per hospitalist. 4. The patient has anemia. B12 and folate are okay. T sat was low. Discussed at length with Dr. Juancho dunne She is on some Epogen and Iron Her hemoglobin dropped a little bit. Dr. Juancho dunne is giving her 2units of blood. 5. sleep apnea. The patient uses or CPAP machine 6. coronary disease status post stents. She is not having any chest pain 7. hyperlipidemia on medications Discussed at length with Dr. Key. Discussion with patient, staff, and doctors amount [id number] beyond clinical activities. Subjective Date/time seen: 07/25/21 10:18 Interval history: patient feels about the same today. Breathing is better. Swelling is about the same. No nausea. He well. Exam Narrative: WDWN in NAD skin no rash head ncat lungs clear to auscultation cor reg no rub abd BS+ nontender and soft ext 1+ bilateral edema. Objective Data Vital Signs Vital Signs: Vital Signs - 24 hr 07/24/21 13:52 07/24/21 20:53 07/24/21 21:33 Temperature 36.3 C L 36.8 C Pulse Rate 63 83 82 Respiratory Rate 20 20 Blood Pressure 148/66 H 155/64 H Pulse Oximetry 99 96 Oxygen Delivery 07/24/21 22:45 07/25/21 02:00 07/25/21 05:31 Temperature 37.1 C Pulse Rate 67 74 72 Respiratory Rate 20 Blood Pressure 149/59 H Pulse Oximetry 96 95 93 Oxygen Delivery CPAP CPAP 07/25/21 08:20 Temperature Pulse Rate Respiratory Rate Blood Pressure Pulse Oximetry Oxygen Delivery Room Air Intake/Output Intake/Output: Intake & Output 07/22/21 07/23/21 07/24/21 07/25/21 23:59 23:59 23:59 23:59 Intake Total 4080 3550 2190 220 Output Total 1800 1300 2150 1000 Balance 2280 2250 40 -780 Meds/Results Medications: Active Medications Generic Name Dose Route Start Last Admin Trade Name Freq PRN Reason Stop Dose Admin Hydrocodone Bitart/Acetaminophen 1 tab 07/17/21 23:08 07/20/21 09:11 Hydrocodone/Acetaminophen (*Crx) 5-325 Mg Tablet PO 1 tab Q6H PRN Administration Pain Rated 4-6 Hydrocodone Bitart/Acetaminophen 1 tab 07/18/21 12:52 07/22/21 21:47 Hydrocodone/Acetaminophen (*Crx) 7.5-325 Mg Tablet
[2021-07-25 11:11] LABS: Glucose Point of Care 79 mg/dl (65-105)
[2021-07-25 11:24] LABS: Hepatitis B Surface Antigen Negative (Negative)
[2021-07-25] MEDS: CALCIUM GLUC 2,000 MG/NS 100ML 2,000 MG/100 ML BAG 100 MG IVPB (11:27)
[2021-07-25 12:03] LABS: Hepatitis B Surface Anti Res Negative; Hepatitis C Virus Antibody Negative (Negative)
[2021-07-25] MEDS: PRIMIDONE 50 MG TABLET PO (13:53)
[2021-07-25] MEDS: MAGNESIUM OXIDE 400 MG TABLET PO (13:53)
[2021-07-25] MEDS: CYCLOBENZAPRINE HCL 10 MG TABLET PO ×2 (13:54→20:32)
[2021-07-25] MEDS: PANTOPRAZOLE 40 MG TABLET PO (13:54)
[2021-07-25] MEDS: calcitrioL 0.25 MCG CAPSULE PO (13:54)
[2021-07-25] MEDS: DOCUSATE SODIUM 100 MG CAPSULE PO ×2 (13:54→17:20)
[2021-07-25] MEDS: ISOSORBIDE MONONITRATE 30 MG TAB.ER.24H PO (13:54)
[2021-07-25] MEDS: MONTELUKAST SODIUM 10 MG TABLET PO (13:54)
[2021-07-25] MEDS: FENOFIBRATE,MICRONIZED 48 MG TABLET PO (13:55)
[2021-07-25] MEDS: METOPROLOL TARTRATE 25 MG TABLET PO ×2 (13:55→20:32)
[2021-07-25] MEDS: LORATADINE 10 MG TABLET PO (13:55)
[2021-07-25] MEDS: PREGABALIN (*CRX) 25 MG CAPSULE PO (14:02)
--- NOTE | 2021-07-25 14:10 | PC.NURSE ---
[facility] Room 302 for scheduled TPE #3 of 5 DX: Multiple Myeloma DR; Saad Marques MD Orders: Albumin 2L and FFP 1L - Hypovolemic Intent ACCESS: RIGHT Sub Clav Dialysis Cath- TIP @ SVC Performed Well - + Blood Return and Flushes w/o Resistance Post Procedure Care - Locked with ACDA Dr Rivera to assess redness at site. ASSESSMENT: See [place] Flowsheet VS Stable for patient throughout. Tolerated well without adverse effects. ORDERS CHANGED: Per Dr Marques - TPE 07-26-21 AM with Albumin 2L and FFP 1L, Dialysis after TPE, TPE 07-29-21 with only Albumin 3L. Orders appear to be in [place]. BB notified of need for FFP. TIMES: Start 1133 STOP 1259 VOLUMES: INLET PROCESSED: 5438 TVI: 3287 PLASMA REMOVED: 3368 NET FLUID BALANCE: -81 Miko MACKENZIEN, RN Apheresis RN - CTA
[2021-07-25] MEDS: EPOETIN ALFA-EPBX 10,000 UNITS/ML VIAL 10000 UNITS SUB-Q (14:11)
[2021-07-25] MEDS: IRON SUCROSE COMPLEX 200 MG in SODIUM CHLORIDE 0.9% IV 50 ML 120 MG IVPB (15:22)
[2021-07-25] MEDS: FERROUS SULFATE 324 MG TABLET 648 MG PO (15:28)
[2021-07-25 16:13] LABS: Glucose Point of Care 97 mg/dl (65-105)
[2021-07-25] MEDS: SODIUM CHLORIDE 0.9% IV 250 ML 30 ML IV CONT (17:19)
[2021-07-25 20:24] LABS: Glucose Point of Care 113 mg/dl (65-105)
[2021-07-25] MEDS: PREGABALIN (*CRX) 25 MG CAPSULE 75 MG PO (20:32)
[2021-07-25] MEDS: PRIMIDONE 50 MG TABLET 100 MG PO (20:32)
[2021-07-25] MEDS: SERTRALINE HCL 50 MG TABLET PO (20:32)
[2021-07-25 22:58] LABS: IFOB Positive Control Positive; Immunochemical Fecal Occult Bl Negative (N)
[2021-07-26] VITALS (29 sets, daily range): BP systolic 118–219; BP diastolic 64–97; PULSE 74–104; RESP 16–20; TEMP 36.2–37; O2SAT 94–99; BMI 46.0
[2021-07-26] MEDS: OMEGA 3 POLYUNSAT FATTY ACIDS 1 GM CAP 2 GM PO ×2 (05:51→17:49)
[2021-07-26 06:05] LABS: Kappa\\Lambda Light Chains 0.01 (0.26-1.65)
[2021-07-26 06:23] LABS: Hematocrit 30.1 % (37.0-47.0); Hemoglobin 9.4 g/dL (12.0-15.0); Mean Corpuscular HGB Conc 31.2 g/dl (32-36); Mean Corpuscular Hemoglobin 29.6 pg (26-34); Mean Corpuscular Volume 94.7 fl (80-100); Mean Platelet Volume 11.1 fl (7.4-10.4); Platelet Count Result 80 k/mm3 (150-375); Red Blood Count 3.18 M/mm3 (4.2-5.4); Red Cell Distribution Width 15.7 % (11.5-14.5); White Blood Count 4.3 K/mm3 (4.5-10.0)
[2021-07-26 06:37] LABS: Albumin Level 3.6 g/dL (3.5-5.1); Alkaline Phosphatase 36 U/L (38-126); Anion Gap 9 mmol/L (8-16); Aspartate Amino Transferase 11 U/L (14-36); Bilirubin,Total 0.4 mg/dL (0.2-1.3); Blood Urea Nitrogen 39 mg/dL (7-17); Calcium 8.6 mg/dL (8.4-10.2); Carbon Dioxide 17 mmol/L (22-30); Chloride 112 mmol/L (98-107); Estimated CRCL calculation 10 ml/min; Estimated Glomerular Filt Rate 6; Glucose 83 mg/dL (65-110); Magnesium 1.6 mg/dL (1.6-2.3); Phosphorus 7.5 mg/dL (2.5-4.5); Potassium 4.9 mmol/L (3.4-5.0); Sodium 138 mmol/L (137-145)
[2021-07-26 06:45] LABS: Alanine Aminotransferase < 4 U/L (6-35)
[2021-07-26 06:50] LABS: Band Neutrophils Percent 11 % (0-6); Blastocytes 3 %; Eosinophils Absolute Manual 0.12 K/mm3 (0.02-0.5); Eosinophils Percent Manual 3 % (0-4); Lymphocytes Absolute Manual 0.81 K/mm3 (1.1-4.5); Metamyelocytes Percent 2 %; Monocytes Absolute Manual 0.04 K/mm3 (0.1-0.90); Monocytes Percent Manual 1 % (3-9); Neutrophils Absolute Manual 3.09 K/mm3 (1.7-7.2); Neutrophils Percent Manual 61 % (46-73); Total Cells Counted 100
[2021-07-26 06:51] LABS: Atypical Lymphocytes Present; Hypochromasia 1+ (NORMAL); Ovalocytes 1+ (NORMAL); Platelet Estimate Decreased (Adequate)
[2021-07-26 08:16] LABS: Glucose Point of Care 96 mg/dl (65-105)
[2021-07-26] MEDS: FLUTICASONE/SALMETEROL 230-21 MCG INHALER 1 PUFF 2 PUFF INHALATION ×2 (09:08→19:49)
--- NOTE | 2021-07-26 10:24 | PM.PNNEP ---
Progress Note: A&P Additional Plan 1. Jaimie has acute kidney injury. This is on top of a baseline creatinine of 2.0. The patient had an ultrasound which was negative. Urine electrolytes are non pre renal. 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 BUN and creatinine are a little better today. CO2 is improving. The patient has asterixis. She is also still very weak. I think we ought to go ahead and do a dialysis treatment this afternoon after plasmapheresis. We discussed the risks benefits process and alternatives to hemodialysis and she agrees to proceed. Tomorrow she will get a kidney biopsy. This will help us with what the diagnosis of the kidney failure is and also the prognosis of her recovering kidney function. 1.5 the patient has multiple myeloma. She is getting plasmapheresis. I agree that the patient will need more myeloma therapy to reduce production of the light chains. Plasmapheresis just removes them. Dr Finch is seeing patient. The patient has been placed on steroids. He says he will start medications as an outpatient. 2. The patient has hypertension. Her systolic is running between 114 and 155. she is on metoprolol 50mg per day. The patient has some swelling. Will remove some fluid on dialysis today. She will start Bumetanide tomorrow 3. The patient has diabetes. She is on medications per hospitalist. 4. The patient has anemia. B12 and folate are okay. T sat was low. The patient is getting Epogen. 5. sleep apnea. The patient uses or CPAP machine 6. coronary disease status post stents. She is not having any chest pain 7. hyperlipidemia on medications Subjective Date/time seen: 07/26/21 10:24 Interval history: patient feels about the same today. She is still weak. Says she is having trouble eating because can't control her hands. Neurology is going to see the patient. Exam Narrative: WDWN in NAD skin no rash head ncat lungs clear to auscultation cor reg no rub abd BS+ nontender and soft ext 1+ bilateral edema. Neuro mild asterixis Objective Data Vital Signs Vital Signs: Vital Signs - 24 hr 07/25/21 11:29 07/25/21 11:30 07/25/21 11:30 Temperature 36.7 C 36.7 C 36.7 C Pulse Rate 77 77 77 Respiratory Rate 18 18 18 Blood Pressure 159/64 H 159/64 H 159/64 H Pulse Oximetry 97 97 97 Oxygen Delivery 07/25/21 11:33 07/25/21 12:15 07/25/21 12:45 Temperature 36.7 C Pulse Rate 77 85 93 Respiratory Rate 18 18 18 Blood Pressure Pulse Oximetry 99 Oxygen Delivery 07/25/21 12:59 07/25/21 12:15 07/25/21 12:45 Temperature 37.2 C Pulse Rate 90 85 93 Respiratory Rate 20 18 18 Blood Pressure 170/71 H 177/75 H Pulse Oximetry 98 99 Oxygen Delivery 07/25/21 12:59 07/25/21 11:33 07/25/21 13:50 Temperature 37.2 C 36.7 C 36.5 C Pulse Rate 90 77 89 Respiratory Rate 20 18 18 Blood Pressure 163/65 H 143/64 H Pulse Oximetry 98 97 100 Oxygen Delivery 07/25/21 17:38 07/25/21 17:55 07/25/21 18:55 Temperature 37.2 C 37.1 C 37.2 C Pulse Rate 71 82 82 Respiratory Rate 18 18 18 Blood Pressure 155/78 H 182/51 H 195/57 H Pulse Oximetry 98 98 96 Oxygen Delivery 07/25/21 20:32 07/25/21 20:34 07/25/21 20:51 Temperature 37.1 C 36.9 C Pulse Rate 83 77 78 Respiratory Rate 16 17 Blood Pressure 181/56 H 186/68 H Pulse Oximetry 96 98 Oxygen Delivery 07/25/21 21:21 07/25/21 20:58 07/25/21 21:51 Temperature 37.1 C 37.3 C Pulse Rate 75 75 76 Respiratory Rate 18 18 Blood Pressure 161/54 H 176/51 H Pulse Oximetry 96 96 97 Oxygen Delivery CPAP 07/25/21 22:51 07/25/21 23:19 07/25/21 23:20 Temperature 37.1 C 36.6 C 36.6 C Pulse Rate 63 69 69 Respiratory Rate 16 18 18 Blood Pressure 184/66 H 154/69 H 154/69 H Pulse Oximetry 99 98 98 Oxygen Delivery 07/26/21 02:37 07/26/21 05:32 07/26/21 09:13 Temperature 36.7 C Pulse Rate 74 81 85 Respiratory Rate 16 16 Blood Pr
--- NOTE | 2021-07-26 10:29 | PCPTNOTE ---
The patient treatment was not able to be completed due to patient receiving plasmapheresis treatment. Will plan to continue treatment per plan of care.
[2021-07-26] MEDS: CALCIUM GLUC 2,000 MG/NS 100ML 2,000 MG/100 ML BAG 100 MG IVPB (11:15)
[2021-07-26 13:08] LABS: Glucose Point of Care 136 mg/dl (65-105)
--- NOTE | 2021-07-26 13:24 | PCNSR ---
On 07/26/21, the student, Onesimo Boyer, provided care and completed [facility] documentation on this patient. I have reviewed the student's documentation and agree with the findings.
--- NOTE | 2021-07-26 14:08 | PC.NURSE ---
To dialysis via bed.
--- NOTE | 2021-07-26 14:14 | PC.NURSE ---
07/26/2021 at 0945-TPE #4(TPE on 07/22/, 07/23, 07/25, 07/26 [address] 07[address]Henry Marques) -right subclavian catheter ok to use with tip in SVC -patient is alert and oriented X 4, has no c/o joint or back pain, pre-procedure -patient's chart/labs/meds/notes and orders reviewed 1115-TPE started. Patient resting in bed, watching TV. -donor plasma checked with Giuliana(Floor RN) 1200-TPE continued. First unit of 24hr plasma started. -no signs or symptoms of blood reaction seen or reported by patient 1300-TPE complete. Patient tolerated pheresis with no adverse effects or events. -right subclavian dressing is dry and intact-no drainage seen Total fluid removed- 3476cc Total fluid replaced- 3276cc Total fluid balance- -200cc Manisha COOPER
--- NOTE | 2021-07-26 17:10 | PC.NURSE ---
Back from dialysis via bed.
[2021-07-26] MEDS: IRON SUCROSE COMPLEX 200 MG in SODIUM CHLORIDE 0.9% IV 50 ML 120 MG IVPB (17:37)
[2021-07-26] MEDS: PREGABALIN (*CRX) 25 MG CAPSULE PO (17:42)
[2021-07-26 17:43] LABS: Glucose Point of Care 133 mg/dl (65-105)
[2021-07-26] MEDS: DOCUSATE SODIUM 100 MG CAPSULE PO (17:43)
[2021-07-26] MEDS: PANTOPRAZOLE 40 MG TABLET PO (17:43)
[2021-07-26] MEDS: PRIMIDONE 50 MG TABLET PO (17:43)
[2021-07-26] MEDS: MAGNESIUM OXIDE 400 MG TABLET PO (17:43)
[2021-07-26] MEDS: ISOSORBIDE MONONITRATE 30 MG TAB.ER.24H PO (17:43)
[2021-07-26] MEDS: CYCLOBENZAPRINE HCL 10 MG TABLET PO (17:43)
[2021-07-26] MEDS: calcitrioL 0.25 MCG CAPSULE PO (17:43)
[2021-07-26] MEDS: METOPROLOL TARTRATE 25 MG TABLET PO (17:45)
[2021-07-26] MEDS: FENOFIBRATE,MICRONIZED 48 MG TABLET PO (17:45)
[2021-07-26] MEDS: polyethylene glycoL 3350 17 GM POWD.PACK PO (17:47)
[2021-07-26] MEDS: FERROUS SULFATE 324 MG TABLET 648 MG PO (17:49)
[2021-07-26] MEDS: SERTRALINE HCL 50 MG TABLET PO (20:41)
[2021-07-26] MEDS: PRIMIDONE 50 MG TABLET 100 MG PO (20:41)
[2021-07-26] MEDS: INSULIN GLARGINE (LANTUS) 1,000 UNITS/10 ML VIAL 94 UNITS SUB-Q (20:45)
[2021-07-26 20:55] LABS: Glucose Point of Care 163 mg/dl (65-105)
[2021-07-27] VITALS (8 sets, daily range): BP systolic 154–164; BP diastolic 60–74; PULSE 72–96; RESP 18–20; TEMP 36.1–37.4; O2SAT 94–98
[2021-07-27] MEDS: OMEGA 3 POLYUNSAT FATTY ACIDS 1 GM CAP 2 GM PO ×2 (05:53→16:06)
[2021-07-27 06:17] LABS: Hematocrit 29.1 % (37.0-47.0); Hemoglobin 9.3 g/dL (12.0-15.0); Mean Corpuscular Hemoglobin 29.8 pg (26-34); Mean Corpuscular Volume 93.3 fl (80-100); Mean Platelet Volume 11.3 fl (7.4-10.4); Platelet Count Result 77 k/mm3 (150-375); Red Blood Count 3.12 M/mm3 (4.2-5.4); Red Cell Distribution Width 15.5 % (11.5-14.5); White Blood Count 4.5 K/mm3 (4.5-10.0)
[2021-07-27 06:24] LABS: Alanine Aminotransferase 6 U/L (6-35); Albumin Level 3.5 g/dL (3.5-5.1); Alkaline Phosphatase 39 U/L (38-126); Anion Gap 8 mmol/L (8-16); Aspartate Amino Transferase 12 U/L (14-36); Bilirubin,Total 0.6 mg/dL (0.2-1.3); Blood Urea Nitrogen 25 mg/dL (7-17); Calcium 8.4 mg/dL (8.4-10.2); Carbon Dioxide 26 mmol/L (22-30); Chloride 105 mmol/L (98-107); Estimated CRCL calculation 15 ml/min; Estimated Glomerular Filt Rate 10; Glucose 116 mg/dL (65-110); Magnesium 1.6 mg/dL (1.6-2.3); Phosphorus 5.3 mg/dL (2.5-4.5); Potassium 3.9 mmol/L (3.4-5.0); Sodium 139 mmol/L (137-145)
[2021-07-27 07:30] LABS: Band Neutrophils Percent 10 % (0-6); Basophils Absolute Manual 0.04 K/mm3 (0.0-0.1); Basophils Percent Manual 1 % (0-1); Eosinophils Absolute Manual 0.09 K/mm3 (0.02-0.5); Eosinophils Percent Manual 2 % (0-4); Lymphocytes Absolute Manual 0.85 K/mm3 (1.1-4.5); Metamyelocytes Percent 11 %; Monocytes Absolute Manual 0.36 K/mm3 (0.1-0.90); Monocytes Percent Manual 8 % (3-9); Myelocytes Percent 1 %; Neutrophils Absolute Manual 2.61 K/mm3 (1.7-7.2); Neutrophils Percent Manual 48 % (46-73); Platelet Estimate Decreased (Adequate); Total Cells Counted 100
[2021-07-27 07:31] LABS: Anisocytosis 1+ (NORMAL); Hypochromasia 1+ (NORMAL); Microcytosis 1+ (NORMAL); Ovalocytes 1+ (NORMAL); Poikilocytosis 1+ (NORMAL); Tear Drop Cells 1+ (NORMAL)
[2021-07-27 07:32] LABS: Atypical Lymphocytes Present
[2021-07-27 07:56] LABS: Glucose Point of Care 129 mg/dl (65-105)
[2021-07-27] MEDS: UMECLIDINIUM BROMIDE 62.5 MCG ELLIPTA 1 PUFF INHALATION (08:39)
[2021-07-27] MEDS: FLUTICASONE/SALMETEROL 230-21 MCG INHALER 1 PUFF 2 PUFF INHALATION ×2 (08:39→20:42)
[2021-07-27 08:52] LABS: INR 1.5; Prothrombin Time 17.7 Seconds (11.1-14.7)
--- NOTE | 2021-07-27 11:04 | PC.NURSE ---
Notified per US that PT too elevated at 1.5 to do renal biopsy. Provider notified.
--- NOTE | 2021-07-27 11:14 | PM.PNNEP ---
Progress Note: A&P Additional Plan 1. Jaimie has acute kidney injury. This is on top of a baseline creatinine of 2.0. The patient had an ultrasound which was negative. Urine electrolytes are non pre renal. 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 she feels better having had dialysis. Will do 1 more treatment tomorrow and then watch the creatinine on Friday and Friday. This will help us decide whether she needs more dialysis or not. 1.5 the patient has multiple myeloma. She is getting plasmapheresis. Dr. Finch deciding when to start dexamethasone and Velcade. 2. The patient has hypertension. Her systolic is running between 114 and 155. she is on metoprolol 50mg per day. The patient has some swelling. Will see how she does after a few days of diuretics and fluid removal. 3. The patient has diabetes. She is on medications per hospitalist. 4. The patient has anemia. B12 and folate are okay. T sat was low. The patient is getting Epogen. Her hemoglobin is 9.3 today. 5. sleep apnea. The patient uses or CPAP machine 6. coronary disease status post stents. She is not having any chest pain 7. hyperlipidemia on medications Subjective Date/time seen: 07/27/21 11:14 Interval history: patient feels and looks better today. She had plasmapheresis and hemodialysis yesterday. She did not eat breakfast because she is going to have a renal biopsy today. Her shaking is a little bit better she says. Exam Narrative: WDWN in NAD skin no rash head ncat lungs clear to auscultation cor reg no rub or gallop abd BS+ nontender and soft ext 1+ bilateral edema. Neuro mild asterixis which seems a little better Objective Data Vital Signs Vital Signs: Vital Signs - 24 hr 07/26/21 12:00 07/26/21 12:05 07/26/21 12:07 Temperature 36.5 C 36.5 C 36.5 C Pulse Rate 89 89 89 Respiratory Rate 16 16 16 Blood Pressure 153/66 H 153/66 H 153/66 H Pulse Oximetry 96 96 96 Oxygen Delivery 07/26/21 12:15 07/26/21 12:30 07/26/21 12:45 Temperature 36.4 C L 36.2 C L 36.2 C L Pulse Rate 89 85 94 Respiratory Rate 18 18 18 Blood Pressure 153/66 H 153/75 H 155/65 H Pulse Oximetry 97 97 97 Oxygen Delivery 07/26/21 12:00 07/26/21 11:45 07/26/21 12:15 Temperature 36.4 C 36.7 C 36.4 C Pulse Rate 89 88 87 Respiratory Rate 18 18 18 Blood Pressure Pulse Oximetry Oxygen Delivery 07/26/21 12:30 07/26/21 12:45 07/26/21 13:00 Temperature 36.2 C L 36.2 C L 36.3 C L Pulse Rate 85 94 85 Respiratory Rate 18 18 18 Blood Pressure Pulse Oximetry Oxygen Delivery 07/26/21 11:15 07/26/21 14:15 07/26/21 14:20 Temperature 36.4 C L 36.6 C Pulse Rate 84 96 80 Respiratory Rate 18 20 Blood Pressure 201/91 H 208/97 H Pulse Oximetry 99 Oxygen Delivery 07/26/21 14:30 07/26/21 14:45 07/26/21 15:00 Temperature Pulse Rate 81 81 84 Respiratory Rate Blood Pressure 219/91 H 206/67 H 206/78 H Pulse Oximetry Oxygen Delivery 07/26/21 15:15 07/26/21 15:30 07/26/21 15:45 Temperature Pulse Rate 85 87 88 Respiratory Rate Blood Pressure 201/78 H 190/75 H 173/76 H Pulse Oximetry Oxygen Delivery 07/26/21 16:00 07/26/21 16:15 07/26/21 16:30 Temperature Pulse Rate 90 96 95 Respiratory Rate Blood Pressure 203/88 H 174/88 H 171/75 H Pulse Oximetry Oxygen Delivery 07/26/21 16:45 07/26/21 17:01 07/26/21 14:00 Temperature 36.3 C L 36.6 C Pulse Rate 102 H 95 80 Respiratory Rate 20 19 Blood Pressure 118/83 172/89 H 208/97 H Pulse Oximetry 97 Oxygen Delivery 07/26/21 17:45 07/26/21 20:50 07/26/21 22:23 Temperature 36.2 C L Pulse Rate 104 H 92 77 Respiratory Rate 18 Blood Pressure 155/64 H Pulse Oximetry 94 95 Oxygen Delivery CPAP 07/27/21 03:20 07/27/21 06:00 Temperature 36.1 C L Pulse Rate 72 80 Respiratory Rate 20 Blood Pressure 154/60 H Pulse Oximetry 94 96 Oxygen Delive
[2021-07-27] MEDS: BUMETANIDE INJ 1 MG/4 ML VIAL 2 MG IV PUSH (11:30)
[2021-07-27] MEDS: ISOSORBIDE MONONITRATE 30 MG TAB.ER.24H PO (11:31)
[2021-07-27] MEDS: METOPROLOL TARTRATE 25 MG TABLET PO ×2 (11:31→21:17)
[2021-07-27] MEDS: DOCUSATE SODIUM 100 MG CAPSULE PO (11:32)
[2021-07-27] MEDS: PANTOPRAZOLE 40 MG TABLET PO (11:32)
[2021-07-27] MEDS: MAGNESIUM OXIDE 400 MG TABLET PO (11:32)
[2021-07-27] MEDS: CYCLOBENZAPRINE HCL 10 MG TABLET PO ×2 (11:33→21:17)
[2021-07-27] MEDS: calcitrioL 0.25 MCG CAPSULE PO (11:33)
[2021-07-27] MEDS: FENOFIBRATE,MICRONIZED 48 MG TABLET PO (11:33)
[2021-07-27] MEDS: PRIMIDONE 50 MG TABLET PO (11:34)
[2021-07-27] MEDS: polyethylene glycoL 3350 17 GM POWD.PACK PO (11:34)
[2021-07-27] MEDS: EPOETIN ALFA-EPBX 10,000 UNITS/ML VIAL 10000 UNITS SUB-Q (11:36)
[2021-07-27] MEDS: PREGABALIN (*CRX) 25 MG CAPSULE PO (11:36)
[2021-07-27 12:09] LABS: Glucose Point of Care 110 mg/dl (65-105)
--- NOTE | 2021-07-27 14:09 | WPDNEURCNPN ---
Assessment and Plan Assessment and plan (1) Tremors of nervous system: Code(s): R25.1 - Tremor, unspecified Status: Acute Assessment and Plan: When medically stable I will treat her tremor but at this stage I will be reluctant to add any medication she is taking lyrica altered Consult date: 07/27/21 Time Seen: 14:00 Reason for consult: 70 years old right-handed female has been admitted to [facility] through the emergency room where she presented with the complaints of generalized weakness prior to the ER visit she presented to the infusion center where she was found to have anemia and acute renal injury but was unable to be treated with intravenous fluids patient has been taking multiple medication as outlined, evaluation in the emergency room documented that she has a normal not smoke [place] alcohol intake her and her general physical and neuro examination was grossly intact including the vital sign except the blood pressure, patient is being followed by the convolute tube winder as per review of the information she has acute renal injury on the top of the baseline creatinine of 2.0 and with the presumptive diagnosis of light chain myeloma of the kidney and definitely improved with dialysis, mentioned before she has insulin-dependent type 2 diabetic, paroxysmal atrial fibrillation, neuro consultation has been obtained mainly because of the tremors HPI: Jaimie Nix is a 70 year old female Review of Systems Review of Systems: All systems reviewed & are unremarkable except as noted in HPI and below PMFSH Past Medical History Medical History Acute neck pain Cervical spondylosis with radiculopathy Chronic anemia Chronic kidney disease, stage 3 Coronary artery disease Degenerative disc disease Dyslipidemia Gastric polyp Gastroesophageal reflux disease Gout History of MRSA infection Hypertension Insulin dependent type 2 diabetes mellitus Lichen sclerosus Macular degeneration Mixed stress and urge urinary incontinence Multiple myeloma Obstructive sleep apnea on CPAP Osteoarthritis Paroxysmal atrial fibrillation Right bundle branch block Surgical History Surgical History History of arthroscopy of left knee History of bilateral knee arthroplasty History of bladder surgery Status post sling and InterStim. History of cardiac catheterization History of cataract extraction History of cholecystectomy History of coronary artery stent placement History of spinal surgery x4 Status post bilateral foot surgery Bone spur removal. Family History Family History Mother Hypertension, Onset Age: 86 Family history of elevated blood lipids, Onset Age: 86 Patient's mother is Grandparent Cerebrovascular accident, Onset Age: 76 Diabetes mellitus, Onset Age: 84 Father Family history of coronary artery disease, Onset Age: 49 Patient's father is Social History Social History Social History: Surrogate decision maker: Kristine Tolliver, sister. Code status: Full code. Smoking status: Never smoker Second hand tobacco smoke exposure: No Alcohol intake: never Substance use: never Substance use type: does not use Spiritual care concerns: No Meds Home Medications and Allergies Home Medications Medication Instructions Recorded Confirmed Type cholecalciferol (vitamin D3) 1,250 50,000 unit PO WEEKLY 02/12/19 07/17/21 History mcg (50,000 unit) capsule cyanocobalamin (vitamin B-12) 1,000 mcg subcut MONTHLY 02/12/19 07/17/21 History 1,000 mcg/mL injection kit isosorbide mononitrate 30 mg 30 mg PO DAILY 02/12/19 07/17/21 History tablet,extended release 24 hr losartan 50 mg tablet 100 mg PO HS 02/12/19 07/17/21 History oxybutyn
[2021-07-27] MEDS: FERROUS SULFATE 324 MG TABLET 648 MG PO (16:06)
[2021-07-27 17:01] LABS: Glucose Point of Care 131 mg/dl (65-105)
[2021-07-27] MEDS: INSULIN GLARGINE (LANTUS) 1,000 UNITS/10 ML VIAL 94 UNITS SUB-Q (21:00)
[2021-07-27] MEDS: PREGABALIN (*CRX) 25 MG CAPSULE 75 MG PO (21:16)
[2021-07-27] MEDS: SERTRALINE HCL 50 MG TABLET PO (21:17)
[2021-07-27] MEDS: PRIMIDONE 50 MG TABLET 100 MG PO (21:17)
[2021-07-27 22:44] LABS: Glucose Point of Care 194 mg/dl (65-105)
[2021-07-28] VITALS (18 sets, daily range): BP systolic 153–193; BP diastolic 62–109; PULSE 68–92; RESP 18–20; TEMP 36–37; O2SAT 95–99
[2021-07-28 05:17] LABS: Kappa\\Lambda Light Chains 0.01 (0.26-1.65); Lambda Light Chain 3504.8 mg/L (5.7-26.3)
[2021-07-28 06:04] LABS: Basophils Absolute Auto 0.1 K/mm3 (0.0-0.1); Basophils Percent Auto 1.5 % (0.2-1.2); Eosinophils Absolute Auto 0.2 K/mm3 (0-0.3); Eosinophils Percent Auto 4.7 % (0-4.4); Hematocrit 27.7 % (37.0-47.0); Hemoglobin 8.8 g/dL (12.0-15.0); Immature Granulocyte Absolute 0.25 K/mm3 (0.00-0.031); Immature Granulocyte Percent A 7.3 % (0-0.5); Lymphocytes Absolute Auto 0.82 K/mm3 (0.9-3.2); Lymphocytes Percent Auto 23.9 % (18.3-44.2); Mean Corpuscular HGB Conc 31.8 g/dl (32-36); Mean Corpuscular Hemoglobin 29.3 pg (26-34); Mean Corpuscular Volume 92.3 fl (80-100); Mean Platelet Volume 11.4 fl (7.4-10.4); Monocytes Absolute Auto 0.2 K/mm3 (0.1-0.6); Monocytes Percent Auto 5.2 % (2.6-8.5); Neutrophils Percent Auto 57.4 % (45.5-73.1); Nucleated Red Blood Cells Perc 1.2 % (0.0-0.2); Platelet Count Result 81 k/mm3 (150-375); Red Cell Distribution Width 15.4 % (11.5-14.5); White Blood Count 3.4 K/mm3 (4.5-10.0)
[2021-07-28 06:21] LABS: Albumin Level 3.4 g/dL (3.5-5.1); Alkaline Phosphatase 44 U/L (38-126); Anion Gap 6 mmol/L (8-16); Aspartate Amino Transferase 13 U/L (14-36); Bilirubin,Total 0.4 mg/dL (0.2-1.3); Blood Urea Nitrogen 28 mg/dL (7-17); Calcium 8.7 mg/dL (8.4-10.2); Carbon Dioxide 29 mmol/L (22-30); Chloride 106 mmol/L (98-107); Estimated CRCL calculation 13 ml/min; Estimated Glomerular Filt Rate 9; Glucose 81 mg/dL (65-110); Magnesium 1.9 mg/dL (1.6-2.3); Potassium 3.8 mmol/L (3.4-5.0); Sodium 141 mmol/L (137-145)
[2021-07-28 06:31] LABS: Alanine Aminotransferase < 6 U/L (6-35)
[2021-07-28] MEDS: OMEGA 3 POLYUNSAT FATTY ACIDS 1 GM CAP 2 GM PO ×2 (06:38→17:32)
[2021-07-28 07:27] LABS: Hypochromasia 1+ (NORMAL); Platelet Estimate Decreased (Adequate); Poikilocytosis 1+ (NORMAL)
[2021-07-28 07:28] LABS: Anisocytosis 1+ (NORMAL)
[2021-07-28 07:29] LABS: Atypical Lymphocytes Present
[2021-07-28 07:34] LABS: Glucose Point of Care 71 mg/dl (65-105)
[2021-07-28] MEDS: FLUTICASONE/SALMETEROL 230-21 MCG INHALER 1 PUFF 2 PUFF INHALATION ×2 (07:47→20:01)
[2021-07-28] MEDS: UMECLIDINIUM BROMIDE 62.5 MCG ELLIPTA 1 PUFF INHALATION (07:48)
[2021-07-28] MEDS: CYCLOBENZAPRINE HCL 10 MG TABLET PO ×2 (08:27→20:53)
[2021-07-28] MEDS: calcitrioL 0.25 MCG CAPSULE PO (08:27)
[2021-07-28] MEDS: MAGNESIUM OXIDE 400 MG TABLET PO (08:27)
[2021-07-28] MEDS: ISOSORBIDE MONONITRATE 30 MG TAB.ER.24H PO (08:28)
[2021-07-28] MEDS: PANTOPRAZOLE 40 MG TABLET PO (08:28)
[2021-07-28] MEDS: FENOFIBRATE,MICRONIZED 48 MG TABLET PO (08:29)
[2021-07-28] MEDS: METOPROLOL TARTRATE 25 MG TABLET PO ×2 (08:29→20:53)
[2021-07-28] MEDS: PRIMIDONE 50 MG TABLET PO (08:30)
[2021-07-28] MEDS: BUMETANIDE INJ 1 MG/4 ML VIAL 2 MG IV PUSH (08:30)
[2021-07-28] MEDS: PREGABALIN (*CRX) 25 MG CAPSULE PO (08:36)
--- NOTE | 2021-07-28 10:36 | P.PNIM_ITS ---
Progress Note: A&P Assessment and Plan (1) Acute on chronic kidney failure: Code(s): N17.9 - Acute kidney failure, unspecified; N18.9 - Chronic kidney disease, unspecified Status: Acute Assessment and Plan: Etiology not entirely clear though may in part be due to dehydration given reports of poor oral intake over the past several days. She does have multiple myeloma which could also have precipitated the acute kidney injury. At this time will avoid nephrotoxic agents and cautiously hydrate overnight. Dr. Finch and the nephrologists were consulted by the ED physician and their input is appreciated. (2) Acute on chronic anemia: Code(s): D64.9 - Anemia, unspecified Status: Acute Assessment and Plan: Transfused to a stable hemoglobin. (3) Multiple myeloma: Code(s): C90.00 - Multiple myeloma not having achieved remission Status: Chronic Assessment and Plan: Case discussed with Dr. Finch who recommends holding her oral chemotherapy at this time. (4) Insulin dependent type 2 diabetes mellitus: Code(s): E11.9 - Type 2 diabetes mellitus without complications; Z79.4 - senior living (current) use of insulin Status: Acute Assessment and Plan: Continue basal insulin. Initiate sliding scale insulin, Accu-Cheks, and hypoglycemic protocol. (5) Obstructive sleep apnea on CPAP: Code(s): G47.33 - Obstructive sleep apnea (adult) (pediatric); Z99.89 - Dependence on other enabling machines and devices Status: Acute Assessment and Plan: CPAP will be provided for the patient to use while hospitalized. (6) Hypertension: Code(s): I10 - Essential (primary) hypertension Status: Acute Assessment and Plan: Blood pressures were reviewed and her systolics have been running a bit high. Antihypertensives will be reviewed and resumed as appropriate. (7) Paroxysmal atrial fibrillation: Code(s): I48.0 - Paroxysmal atrial fibrillation Status: Acute Assessment and Plan: Currently sounds to be in a sinus rhythm. Additional Plan 07/18/2021 interval history: Patient is a 76-year-old female with history for multiple myeloma presented with complaint of generalized weakness her hemoglobin was 7.6 upon arrival patient was given 2 units of pack RBC, her hemoglobin is 9, patient states is feeling little better now however complains of pain in the neck, will apply Lidoderm patch, will continue Lyrica and [place] and to further evaluate with C-spine x-ray, her urine is suspicious for UTI, started the patient on ceftriaxone follow-up on urine and blood culture will also consult her oncologist for further recommendation, 07/19/2021 interval history: Patient is a 76-year-old female with history for multiple myeloma presented with complaint of generalized weakness her hemoglobin was 7.6, upon arrival patient was given 2 units of pack RBC, her hemoglobin was 9, and today her hgb is 8.6, she also has SOLANGE upon arrival herBUN was 32 and Scr was 4 today her BUN is 50 and Scr is 6.7 most likely due to dehydration, poor PO intake, her kidney US is normal, will start gentle hydration and consult quilt sewer for further evaluation, and patient states is feeling little better now however complains of pain in the neck, will apply Lidoderm patch, will continue Lyrica and [place] and to further evaluate with C-spine x-ray, which showed Severe cervical spondylosis. will consult ortho, her urine is suspicious for UTI, started the patient on ceftriaxone follow-up on urine and blood culture will also consult her oncologist for further re
[2021-07-28 11:47] LABS: Glucose Point of Care 137 mg/dl (65-105)
--- NOTE | 2021-07-28 13:18 | PM.PNNEP ---
Progress Note: A&P Additional Plan 1. Jaimie has acute kidney injury. This is on top of a baseline creatinine of 2.0. The patient had an ultrasound which was negative. Urine electrolytes are non pre renal. 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 Her creatinine went from 4.2-4.6 between yesterday and today. She will get another dialysis treatment today. Then we will see how her creatinine does on Friday and Friday and reassess at that point. She will hopefully get a kidney biopsy on Friday. Her INR was 1.5. She will get plasmapheresis tomorrow and will get plasma replacement. Hopefully the INR will be improved enough to do the biopsy. 1.5 the patient has multiple myeloma. She is getting plasmapheresis. Dr. Finch deciding when to start dexamethasone and Velcade. 2. The patient has hypertension. Her systolic is running between 114 and 155. she is on metoprolol 50mg per day. Will add amlodipine to take the edge off the blood pressure. Will see how she does after a few days of diuretics and fluid removal. 3. The patient has diabetes. She is on medications per hospitalist. 4. The patient has anemia. B12 and folate are okay. T sat was low. The patient is getting Epogen. Her hemoglobin is 8.8 today. 5. sleep apnea. The patient uses or CPAP machine 6. coronary disease status post stents. She is not having any chest pain 7. hyperlipidemia on medications Subjective Date/time seen: 07/28/21 13:18 Interval history: patient feels and looks better today. Sitting up in a chair and eating lunch. Biopsy was not done yesterday. Exam Narrative: WDWN in NAD skin no rash head ncat lungs clear to auscultation cor reg no rub or gallop abd BS+ nontender and soft ext 1+ bilateral edema. Neuro: Asterix[facility] is yet improved. Objective Data Vital Signs Vital Signs: Vital Signs - 24 hr 07/27/21 14:00 07/27/21 20:42 07/27/21 20:45 Temperature 37.4 C Pulse Rate 96 92 92 Respiratory Rate 19 18 20 Blood Pressure 158/63 H Pulse Oximetry 94 Oxygen Delivery 07/27/21 21:33 07/27/21 23:15 07/28/21 05:50 Temperature 37.3 C 36.6 C Pulse Rate 89 76 68 Respiratory Rate 18 18 Blood Pressure 164/74 H 153/76 H Pulse Oximetry 98 96 99 Oxygen Delivery CPAP 07/28/21 07:52 07/28/21 08:29 07/28/21 08:25 Temperature Pulse Rate 88 88 Respiratory Rate 20 Blood Pressure Pulse Oximetry Oxygen Delivery Room Air Intake/Output Intake/Output: Intake & Output 07/25/21 07/26/21 07/27/21 07/28/21 23:59 23:59 23:59 23:59 Intake Total 3197 2613 2040 650 Output Total 1900 4800 201 Balance 1297 -9693 1830 650 Meds/Results Medications: Active Medications Generic Name Dose Route Start Last Admin Trade Name Freq PRN Reason Stop Dose Admin Albuterol 2 puff 07/17/21 20:51 07/21/21 16:49 Albuterol Sulfate (*Sp) Aerosol 1 Puff INHALATION 2 puff Q4H PRN Administration Shortness Of Breath Aspirin 81 mg 07/18/21 08:00 07/21/21 09:43 Aspirin 81 Mg Chewable Tablet PO 81 mg DAILY@0800 JERROD Administration Bumetanide 2 mg 07/27/21 09:00 07/28/21 08:30 Bumetanide Inj 1 Mg/4 Ml Vial IV PUSH 2 mg QAM JERROD Administration Calcitriol 0.25 mcg 07/18/21 09:00 07/28/21 08:27 Calcitriol 0.25 Mcg Capsule PO 0.25 mcg DAILY JERROD Administration Cyclobenzaprine HCl 10 mg 07/18/21 12:55 07/28/21 08:27 Cyclobenzaprine Hcl 10 Mg Tablet PO 10 mg Q12HR JERROD Administration Dabigatran 150 mg 07/18/21 09:00 07/23/21 11:01 Dabigatran Etexilate 150 Mg Capsule PO Not Given BID [facility] Dextrose 12.5 gm 07/17/21 19:58 07/21/21 06:50 Dextrose 50% 25 Gm/50 Ml Syringe IV PUSH 12.5 gm PRN PRN Administration Hypoglycemia Protocol Docusate Sodium 100 mg 07/24/21 09:00 07/28/21 08:30 Docusate Sodium 100 Mg Capsule PO Not Given BID [facility] Epoetin Manny-epbx 10,000 units
--- NOTE | 2021-07-28 13:50 | PC.NURSE ---
To dialysis via bed.
[2021-07-28 17:17] LABS: Glucose Point of Care 148 mg/dl (65-105)
--- NOTE | 2021-07-28 17:20 | PC.NURSE ---
Back from dialysis via bed.
[2021-07-28] MEDS: amLODIPine BESYLATE 5 MG TABLET PO (17:32)
[2021-07-28] MEDS: FERROUS SULFATE 324 MG TABLET 648 MG PO (17:32)
[2021-07-28] MEDS: HYDROcodone/acetaminophen (*CRX) 7.5-325 MG TABLET 1 TAB PO (18:06)
[2021-07-28] MEDS: SERTRALINE HCL 50 MG TABLET PO (20:52)
[2021-07-28] MEDS: PRIMIDONE 50 MG TABLET 100 MG PO (20:53)
[2021-07-28] MEDS: DIPHENHYDRAMINE 1%/ZINC 0.1% CREAM 30 GM TUBE 1 APPLIC TOPICAL (20:54)
[2021-07-28] MEDS: PREGABALIN (*CRX) 25 MG CAPSULE 75 MG PO (20:54)
[2021-07-28 21:44] LABS: Glucose Point of Care 190 mg/dl (65-105)
[2021-07-28] MEDS: INSULIN GLARGINE (LANTUS) 1,000 UNITS/10 ML VIAL 94 UNITS SUB-Q (21:46)
[2021-07-29] VITALS (18 sets, daily range): BP systolic 132–161; BP diastolic 54–92; PULSE 62–92; RESP 16–20; TEMP 36.4–37.1; O2SAT 91–99
[2021-07-29 06:16] LABS: Basophils Percent Auto 1.2 % (0.2-1.2); Eosinophils Absolute Auto 0.2 K/mm3 (0-0.3); Eosinophils Percent Auto 4.9 % (0-4.4); Hematocrit 31.5 % (37.0-47.0); Hemoglobin 9.6 g/dL (12.0-15.0); Immature Granulocyte Absolute 0.42 K/mm3 (0.00-0.031); Immature Granulocyte Percent A 12.1 % (0-0.5); Lymphocytes Absolute Auto 0.88 K/mm3 (0.9-3.2); Lymphocytes Percent Auto 25.4 % (18.3-44.2); Mean Corpuscular HGB Conc 30.5 g/dl (32-36); Mean Corpuscular Hemoglobin 29.4 pg (26-34); Mean Corpuscular Volume 96.3 fl (80-100); Monocytes Absolute Auto 0.2 K/mm3 (0.1-0.6); Monocytes Percent Auto 5.8 % (2.6-8.5); Neutrophils Absolute Auto 1.8 K/mm3 (1.3-6.7); Neutrophils Percent Auto 50.6 % (45.5-73.1); Nucleated Red Blood Cells Absolute Auto 0.1 K/mm3 (0.0-0.012); Nucleated Red Blood Cells Perc 1.7 % (0.0-0.2); Platelet Count Result 89 k/mm3 (150-375); Red Blood Count 3.27 M/mm3 (4.2-5.4); Red Cell Distribution Width 15.5 % (11.5-14.5); White Blood Count 3.5 K/mm3 (4.5-10.0)
[2021-07-29 06:26] LABS: Albumin Level 3.8 g/dL (3.5-5.1); Alkaline Phosphatase 47 U/L (38-126); Anion Gap 7 mmol/L (8-16); Aspartate Amino Transferase 15 U/L (14-36); Bilirubin,Total 0.4 mg/dL (0.2-1.3); Blood Urea Nitrogen 21 mg/dL (7-17); Calcium 8.7 mg/dL (8.4-10.2); Carbon Dioxide 33 mmol/L (22-30); Chloride 100 mmol/L (98-107); Estimated CRCL calculation 16 ml/min; Estimated Glomerular Filt Rate 11; Glucose 96 mg/dL (65-110); Phosphorus 5.7 mg/dL (2.5-4.5); Potassium 3.7 mmol/L (3.4-5.0); Sodium 140 mmol/L (137-145)
[2021-07-29] MEDS: OMEGA 3 POLYUNSAT FATTY ACIDS 1 GM CAP 2 GM PO ×2 (06:30→15:39)
[2021-07-29] MEDS: WATER FOR IRRIGATION, STERILE 1,000 ML BOTTLE 1000 ML (06:44)
[2021-07-29 06:51] LABS: Anisocytosis 2+ (NORMAL); Hypochromasia 2+ (NORMAL); Ovalocytes 2+ (NORMAL); Platelet Estimate Decreased (Adequate); Tear Drop Cells 1+ (NORMAL)
[2021-07-29 06:53] LABS: Alanine Aminotransferase < 6 U/L (6-35)
[2021-07-29] MEDS: UMECLIDINIUM BROMIDE 62.5 MCG ELLIPTA 1 PUFF INHALATION (08:16)
[2021-07-29] MEDS: FLUTICASONE/SALMETEROL 230-21 MCG INHALER 1 PUFF 2 PUFF INHALATION ×2 (08:18→20:19)
[2021-07-29 08:42] LABS: Glucose Point of Care 87 mg/dl (65-105)
--- NOTE | 2021-07-29 11:27 | PM.PNNEP ---
Progress Note: A&P Additional Plan 1. Jaimie has acute kidney injury. This is on top of a baseline creatinine of 2.0. The patient had an ultrasound which was negative. Urine electrolytes are non pre renal. 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 Her creatinine is currently 3.9. BUN is good at 21. She has no uremic symptoms any longer. She is going to get plasmapheresis today. We will use some plasma. She had an INR of 1.5 on Friday. I have ordered another [address] Fallon is going to give her vitamin K if her INR is still high today. 1.5 the patient has multiple myeloma. She is getting plasmapheresis. Dr. Finch deciding when to start dexamethasone and Velcade. 2. The patient has hypertension. Her systolic is running between 114 and 155. she is on metoprolol 50mg per day. Will add amlodipine to take the edge off the blood pressure. Will given extra dose today for biopsy tomorrow. Will see how she does after a few days of diuretics and fluid removal. 3. The patient has diabetes. She is on medications per hospitalist. 4. The patient has anemia. B12 and folate are okay. T sat was low. The patient is getting Epogen. Her hemoglobin is 8.8 today. 5. sleep apnea. The patient uses or CPAP machine 6. coronary disease status post stents. She is not having any chest pain 7. hyperlipidemia on medications Subjective Date/time seen: 07/29/21 11:27 Interval history: patient feels and looks better today. sitting in a chair right now. She had some breakfast earlier. Her shakiness is better. Exam Narrative: WDWN in NAD skin no rash head ncat lungs clear to auscultation cor reg no rub or gallop abd BS+ nontender and soft ext 1+ bilateral edema. Neuro: Asterixis is Just about gone Objective Data Vital Signs Vital Signs: Vital Signs - 24 hr 07/28/21 13:50 07/28/21 14:05 07/28/21 14:20 Temperature 36.8 C Pulse Rate 92 90 68 Respiratory Rate 18 Blood Pressure 160/89 H 179/93 H 179/62 H Pulse Oximetry Oxygen Delivery 07/28/21 14:40 07/28/21 15:00 07/28/21 15:20 Temperature Pulse Rate 85 79 78 Respiratory Rate Blood Pressure 175/83 H 172/109 H 166/69 H Pulse Oximetry Oxygen Delivery 07/28/21 15:40 07/28/21 16:00 07/28/21 16:20 Temperature Pulse Rate 78 76 84 Respiratory Rate Blood Pressure 187/76 H 153/69 H 193/106 H Pulse Oximetry Oxygen Delivery 07/28/21 16:40 07/28/21 17:00 07/28/21 17:05 Temperature 36.9 C Pulse Rate 81 83 80 Respiratory Rate 18 Blood Pressure 154/79 H 182/74 H 179/100 H Pulse Oximetry Oxygen Delivery 07/28/21 20:01 07/28/21 21:39 07/28/21 22:00 Temperature 37.0 C Pulse Rate 88 88 72 Respiratory Rate 20 18 Blood Pressure 167/68 H Pulse Oximetry 97 95 Oxygen Delivery CPAP 07/29/21 02:30 07/29/21 06:00 07/29/21 08:15 Temperature 36.6 C Pulse Rate 76 62 Respiratory Rate 16 Blood Pressure 147/66 H Pulse Oximetry 95 99 Oxygen Delivery CPAP Room Air Intake/Output Intake/Output: Intake & Output 07/26/21 07/27/21 07/28/21 07/29/21 23:59 23:59 23:59 23:59 Intake Total 2613 2040 770 250 Output Total 4800 201 4700 Balance -3616 8079 -9270 250 Meds/Results Medications: Active Medications Generic Name Dose Route Start Last Admin Trade Name Freq PRN Reason Stop Dose Admin Hydrocodone Bitart/Acetaminophen 1 tab 07/28/21 17:44 Hydrocodone/Acetaminophen (*Crx) 5-325 Mg Tablet PO Q6H PRN Pain Rated 4-6 Hydrocodone Bitart/Acetaminophen 1 tab 07/28/21 17:56 07/28/21 18:06 Hydrocodone/Acetaminophen (*Crx) 7.5-325 Mg Tablet PO 1 tab Q6H PRN Administration Pain Rated 7-10 Albuterol 2 puff 07/17/21 20:51 07/21/21 16:49 Albuterol Sulfate (*Sp) Aerosol 1 Puff INHALATION 2 puff Q4H PRN Administration Shortness Of Breath Amlodipine Besylate 5 mg 07/28/21 13:25 07/28/21 17
[2021-07-29] MEDS: SODIUM CHLORIDE 0.9% IV 1,000 ML 10 ML IV CONT (11:50)
[2021-07-29] MEDS: CALCIUM GLUC 2,000 MG/NS 100ML 2,000 MG/100 ML BAG 100 MG IVPB (11:50)
--- NOTE | 2021-07-29 11:57 | PM.IMPN ---
Progress Note: A&P Assessment and Plan (1) Acute on chronic kidney failure: Code(s): N17.9 - Acute kidney failure, unspecified; N18.9 - Chronic kidney disease, unspecified Status: Acute Assessment and Plan: Etiology not entirely clear though may in part be due to dehydration given reports of poor oral intake over the past several days. She does have multiple myeloma which could also have precipitated the acute kidney injury. At this time will avoid nephrotoxic agents and cautiously hydrate overnight. Dr. Finch and the nephrologists were consulted by the ED physician and their input is appreciated. (2) Acute on chronic anemia: Code(s): D64.9 - Anemia, unspecified Status: Acute Assessment and Plan: Transfused to a stable hemoglobin. (3) Multiple myeloma: Code(s): C90.00 - Multiple myeloma not having achieved remission Status: Chronic Assessment and Plan: holding her oral chemotherapy at this time. (4) Insulin dependent type 2 diabetes mellitus: Code(s): E11.9 - Type 2 diabetes mellitus without complications; Z79.4 - prison (current) use of insulin Status: Acute Assessment and Plan: Continue basal insulin. Initiate sliding scale insulin, Accu-Cheks, and hypoglycemic protocol. (5) Obstructive sleep apnea on CPAP: Code(s): G47.33 - Obstructive sleep apnea (adult) (pediatric); Z99.89 - Dependence on other enabling machines and devices Status: Acute Assessment and Plan: CPAP will be provided for the patient to use while hospitalized. (6) Hypertension: Code(s): I10 - Essential (primary) hypertension Status: Acute Assessment and Plan: Monitor blood pressure (7) Paroxysmal atrial fibrillation: Code(s): I48.0 - Paroxysmal atrial fibrillation Status: Acute Assessment and Plan: Currently sounds to be in a sinus rhythm. Subjective Date/time seen: 07/29/21 11:57 Complaints. No chest pain shortness of breath Exam Narrative: General: alert and oriented Psych: appropriate mood nad affect Eyes: PERRLA Neck: Trachea midline, no new lesions Skin: no changes Lungs: CTA Cardiac: Normal S1,S2, no MGR ABD: soft, nd, nt, nbs Ext: no new lesions, no cce Vasc: Pulses intact Objective Data Vital Signs Vital Signs: Vital Signs - 24 hr 07/28/21 13:50 07/28/21 14:05 07/28/21 14:20 Temperature 98.2 F Pulse Rate 92 90 68 Respiratory Rate 18 Blood Pressure 160/89 H 179/93 H 179/62 H Pulse Oximetry Oxygen Delivery 07/28/21 14:40 07/28/21 15:00 07/28/21 15:20 Temperature Pulse Rate 85 79 78 Respiratory Rate Blood Pressure 175/83 H 172/109 H 166/69 H Pulse Oximetry Oxygen Delivery 07/28/21 15:40 07/28/21 16:00 07/28/21 16:20 Temperature Pulse Rate 78 76 84 Respiratory Rate Blood Pressure 187/76 H 153/69 H 193/106 H Pulse Oximetry Oxygen Delivery 07/28/21 16:40 07/28/21 17:00 07/28/21 17:05 Temperature 98.5 F Pulse Rate 81 83 80 Respiratory Rate 18 Blood Pressure 154/79 H 182/74 H 179/100 H Pulse Oximetry Oxygen Delivery 07/28/21 20:01 07/28/21 21:39 07/28/21 22:00 Temperature 98.6 F Pulse Rate 88 88 72 Respiratory Rate 20 18 Blood Pressure 167/68 H Pulse Oximetry 97 95 Oxygen Delivery CPAP 07/29/21 02:30 07/29/21 06:00 07/29/21 08:15 Temperature 97.9 F Pulse Rate 76 62 Respiratory Rate 16 Blood Pressure 147/66 H Pulse Oximetry 95 99 Oxygen Delivery CPAP Room Air Intake/Output Intake/Output: Intake & Output 07/26/21 07/27/21 07/28/21 07/29/21 23:59 23:59 23:59 23:59 Intake Total 2613 2040 770 370 Output Total 4800 201 4700 Balance -2187 1839 -3930 370 Meds/Results Medications: Active Medications Generic Name Dose Route Start Last Admin Trade Name Freq PRN Reason Stop Dose Admin Hydrocodone Bitart/Acetaminophen 1 tab 07/28/21 17:44 Hydrocodon
[2021-07-29 12:17] LABS: INR 1.2
[2021-07-29 12:18] LABS: Glucose Point of Care 140 mg/dl (65-105)
[2021-07-29 12:18] LABS: Partial Thromboplastin Time 38.4 SECONDS (22.3-36.8)
[2021-07-29] MEDS: CYCLOBENZAPRINE HCL 10 MG TABLET PO ×2 (14:04→21:31)
[2021-07-29] MEDS: amLODIPine BESYLATE 5 MG TABLET PO ×2 (14:05→14:06)
[2021-07-29] MEDS: PANTOPRAZOLE 40 MG TABLET PO (14:05)
[2021-07-29] MEDS: DOCUSATE SODIUM 100 MG CAPSULE PO ×2 (14:05→21:30)
[2021-07-29] MEDS: FERROUS SULFATE 324 MG TABLET 648 MG PO (14:05)
[2021-07-29] MEDS: MAGNESIUM OXIDE 400 MG TABLET PO (14:05)
[2021-07-29] MEDS: PREGABALIN (*CRX) 25 MG CAPSULE PO (14:06)
[2021-07-29] MEDS: calcitrioL 0.25 MCG CAPSULE PO (14:06)
[2021-07-29] MEDS: FENOFIBRATE,MICRONIZED 48 MG TABLET PO (14:06)
[2021-07-29] MEDS: ISOSORBIDE MONONITRATE 30 MG TAB.ER.24H PO (14:06)
[2021-07-29] MEDS: polyethylene glycoL 3350 17 GM POWD.PACK PO (14:22)
[2021-07-29] MEDS: DIPHENHYDRAMINE 1%/ZINC 0.1% CREAM 30 GM TUBE 1 APPLIC TOPICAL (14:22)
--- NOTE | 2021-07-29 14:54 | PC.NURSE ---
07/29/2021 at 1030-Patient resting in procedure chair, watching TV. -patient is alert and oriented X 4, has no c/o back or joint pain. -TPE #5(TPE on 07/22,07/23,07/25,07/26 &0 07/[address]Henry Marques) -right subclavian catheter ok to use with tip in SVC -patient's chart/meds/labs/notes and orders 1115-In report from floor RN, patient's kidney biopsy was held on friday and is rescheduled for Friday. - called and has ordered fro Albumin 5% 2000cc & 1000cc of FFP to be used for today's and 07/31/2021 TPE procedure. BB called and is aware 1150-TPE started. Patient resting in bed, watching TV. 1220-TPE continued. Ct-yellow plasma in collect bag. 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 1252-TPE continued. First unit of 24hr plasma started. -Donor plasma checked with Giuliana(Floor RN). 1307-TPE continued. No signs or symptoms of blood reaction seen or reported. 1340-TPE complete. Patient tolerated pheresis with no adverse effects or events. Total fluid removed- 3488cc Total fluid replaced- 3320cc Total fluid balance- -168cc Manisha COOPER
[2021-07-29 15:15] LABS: Glucose Point of Care 178 mg/dl (65-105)
[2021-07-29] MEDS: METOPROLOL TARTRATE 25 MG TABLET PO ×2 (15:37→21:31)
[2021-07-29] MEDS: PRIMIDONE 50 MG TABLET PO (15:37)
[2021-07-29] MEDS: BUMETANIDE INJ 1 MG/4 ML VIAL 2 MG IV PUSH (15:38)
[2021-07-29 16:58] LABS: Glucose Point of Care 168 mg/dl (65-105)
[2021-07-29 17:46] LABS: Kappa\\Lambda Light Chains 0.01 (0.26-1.65)
[2021-07-29] MEDS: ONDANSETRON INJ 4 MG/2 ML VIAL IV PUSH (18:02)
[2021-07-29 21:12] LABS: Glucose Point of Care 169 mg/dl (65-105)
[2021-07-29] MEDS: PRIMIDONE 50 MG TABLET 100 MG PO (21:30)
[2021-07-29] MEDS: SERTRALINE HCL 50 MG TABLET PO (21:31)
[2021-07-29] MEDS: PREGABALIN (*CRX) 25 MG CAPSULE 75 MG PO (21:44)
[2021-07-29] MEDS: INSULIN GLARGINE (*BKC) 100 UNITS/ML 70 UNITS SUB-Q (22:41)
[2021-07-30 05:46] LABS: Basophils Percent Auto 1.1 % (0.2-1.2); Eosinophils Absolute Auto 0.2 K/mm3 (0-0.3); Eosinophils Percent Auto 4.8 % (0-4.4); Hematocrit 30.3 % (37.0-47.0); Hemoglobin 9.7 g/dL (12.0-15.0); Immature Granulocyte Absolute 0.33 K/mm3 (0.00-0.031); Immature Granulocyte Percent A 8.8 % (0-0.5); Lymphocytes Absolute Auto 0.95 K/mm3 (0.9-3.2); Lymphocytes Percent Auto 25.3 % (18.3-44.2); Mean Corpuscular Hemoglobin 30.3 pg (26-34); Mean Corpuscular Volume 94.7 fl (80-100); Monocytes Absolute Auto 0.3 K/mm3 (0.1-0.6); Nucleated Red Blood Cells Perc 1.1 % (0.0-0.2); Platelet Count Result 84 k/mm3 (150-375); Red Cell Distribution Width 15.7 % (11.5-14.5); White Blood Count 3.8 K/mm3 (4.5-10.0)
[2021-07-30 06:00] VITALS: BP 127/70; PULSE 67; RESP 18; TEMP 36.3; O2SAT 99
[2021-07-30 06:06] LABS: Alanine Aminotransferase 9 U/L (6-35); Albumin Level 3.6 g/dL (3.5-5.1); Alkaline Phosphatase 44 U/L (38-126); Anion Gap 8 mmol/L (8-16); Aspartate Amino Transferase 16 U/L (14-36); Bilirubin,Total 0.2 mg/dL (0.2-1.3); Blood Urea Nitrogen 28 mg/dL (7-17); Calcium 8.6 mg/dL (8.4-10.2); Carbon Dioxide 29 mmol/L (22-30); Chloride 103 mmol/L (98-107); Estimated CRCL calculation 12 ml/min; Estimated Glomerular Filt Rate 8; Glucose 110 mg/dL (65-110); Potassium 3.7 mmol/L (3.4-5.0); Sodium 140 mmol/L (137-145)
[2021-07-30 06:09] LABS: INR 1.3; Prothrombin Time 15.5 Seconds (11.1-14.7)
[2021-07-30 06:10] LABS: Partial Thromboplastin Time 34.7 SECONDS (22.3-36.8)
[2021-07-30 06:20] LABS: Platelet Estimate Decreased (Adequate); Poikilocytosis 1+ (NORMAL)
[2021-07-30 06:21] LABS: Anisocytosis 1+ (NORMAL); Ovalocytes 1+ (NORMAL); Tear Drop Cells 1+ (NORMAL)
[2021-07-30] MEDS: OMEGA 3 POLYUNSAT FATTY ACIDS 1 GM CAP 2 GM PO ×2 (06:55→16:56)
[2021-07-30 07:25] LABS: Glucose Point of Care 89 mg/dl (65-105)
[2021-07-30] MEDS: DIPHENHYDRAMINE 1%/ZINC 0.1% CREAM 30 GM TUBE 1 APPLIC TOPICAL (07:57)
[2021-07-30] MEDS: FLUTICASONE/SALMETEROL 230-21 MCG INHALER 1 PUFF 2 PUFF INHALATION ×2 (08:03→20:00)
[2021-07-30] MEDS: calcitrioL 0.25 MCG CAPSULE PO (10:27)
[2021-07-30] MEDS: PREGABALIN (*CRX) 25 MG CAPSULE PO (10:27)
[2021-07-30] MEDS: CYCLOBENZAPRINE HCL 10 MG TABLET PO ×2 (10:27→20:32)
[2021-07-30] MEDS: MAGNESIUM OXIDE 400 MG TABLET PO (10:27)
[2021-07-30] MEDS: ISOSORBIDE MONONITRATE 30 MG TAB.ER.24H PO (10:27)
[2021-07-30] MEDS: hydrOXYzine HCL 25 MG TABLET PO (10:27)
[2021-07-30] MEDS: FENOFIBRATE,MICRONIZED 48 MG TABLET PO (10:28)
[2021-07-30] MEDS: DOCUSATE SODIUM 100 MG CAPSULE PO (10:28)
[2021-07-30] MEDS: amLODIPine BESYLATE 5 MG TABLET PO (10:28)
--- NOTE | 2021-07-30 10:28 | PM.IMPN ---
Progress Note: A&P Assessment and Plan (1) Acute on chronic kidney failure: Code(s): N17.9 - Acute kidney failure, unspecified; N18.9 - Chronic kidney disease, unspecified Status: Acute Assessment and Plan: Etiology not entirely clear though may in part be due to dehydration given reports of poor oral intake over the past several days. She does have multiple myeloma which could also have precipitated the acute kidney injury. At this time will avoid nephrotoxic agents and cautiously hydrate overnight. Renal biopsy plan today. (2) Acute on chronic anemia: Code(s): D64.9 - Anemia, unspecified Status: Acute Assessment and Plan: Transfused to a stable hemoglobin. (3) Multiple myeloma: Code(s): C90.00 - Multiple myeloma not having achieved remission Status: Chronic Assessment and Plan: holding her oral chemotherapy at this time. (4) Insulin dependent type 2 diabetes mellitus: Code(s): E11.9 - Type 2 diabetes mellitus without complications; Z79.4 - [place] (current) use of insulin Status: Acute Assessment and Plan: Continue basal insulin. Initiate sliding scale insulin, Accu-Cheks, and hypoglycemic protocol. (5) Obstructive sleep apnea on CPAP: Code(s): G47.33 - Obstructive sleep apnea (adult) (pediatric); Z99.89 - Dependence on other enabling machines and devices Status: Acute Assessment and Plan: CPAP will be provided for the patient to use while hospitalized. (6) Hypertension: Code(s): I10 - Essential (primary) hypertension Status: Acute Assessment and Plan: Monitor blood pressure (7) Paroxysmal atrial fibrillation: Code(s): I48.0 - Paroxysmal atrial fibrillation Status: Acute Assessment and Plan: Currently sounds to be in a sinus rhythm. Subjective Date/time seen: 07/30/21 10:28 Feeling better. No new complaints. Exam Narrative: General: alert and oriented Psych: appropriate mood nad affect Eyes: PERRLA Neck: Trachea midline, no new lesions Skin: no changes Lungs: CTA Cardiac: Normal S1,S2, no MGR ABD: soft, nd, nt, nbs Ext: no new lesions, no cce Vasc: Pulses intact Objective Data Vital Signs Vital Signs: Vital Signs - 24 hr 07/29/21 12:52 07/29/21 13:00 07/29/21 13:02 Temperature 98.2 F 98.2 F 98.2 F Pulse Rate 92 92 92 Respiratory Rate 18 18 18 Blood Pressure 139/82 139/82 139/82 Pulse Oximetry 97 97 97 Oxygen Delivery Fraction of Inspired Oxygen 07/29/21 13:07 07/29/21 13:25 07/29/21 13:40 Temperature 98.2 F 98.3 F 97.9 F Pulse Rate 90 84 89 Respiratory Rate 18 18 18 Blood Pressure 137/92 H 132/90 161/80 H Pulse Oximetry 99 99 99 Oxygen Delivery Fraction of Inspired Oxygen 07/29/21 11:50 07/29/21 12:40 07/29/21 12:52 Temperature 97.6 F 97.6 F 98.2 F Pulse Rate 70 74 90 Respiratory Rate 18 18 18 Blood Pressure Pulse Oximetry 98 Oxygen Delivery Fraction of Inspired Oxygen 07/29/21 13:07 07/29/21 13:20 07/29/21 13:40 Temperature 98.2 F 98.3 F 97.9 F Pulse Rate 90 84 89 Respiratory Rate 18 19 18 Blood Pressure Pulse Oximetry Oxygen Delivery Fraction of Inspired Oxygen 07/29/21 14:00 07/29/21 15:37 07/29/21 20:20 Temperature 98.8 F Pulse Rate 85 84 87 Respiratory Rate 20 16 Blood Pressure 145/75 H Pulse Oximetry 91 Oxygen Delivery Fraction of Inspired Oxygen 07/29/21 21:31 07/29/21 21:33 07/29/21 20:10 Temperature 98.8 F Pulse Rate 80 84 84 Respiratory Rate 18 18 Blood Pressure 146/54 H Pulse Oximetry 95 95 Oxygen Delivery Room Air Fraction of Inspired Oxygen 07/29/21 22:45 07/30/21 02:15 07/30/21 06:00 Temperature 97.4 F L Pulse Rate 70 67 Respiratory Rate 18 Blood Pressure 127/70 Pulse Oximetry 99 99 Oxygen Delivery CPAP CPAP Fraction of Inspired Oxygen Intake/Output Intake/Output: Intake & Output 07/11
[2021-07-30 10:29] VITALS: PULSE 80
[2021-07-30] MEDS: METOPROLOL TARTRATE 25 MG TABLET PO ×2 (10:29→20:32)
[2021-07-30] MEDS: PRIMIDONE 50 MG TABLET PO (10:29)
[2021-07-30] MEDS: PANTOPRAZOLE 40 MG TABLET PO (10:29)
[2021-07-30] MEDS: BUMETANIDE INJ 1 MG/4 ML VIAL 2 MG IV PUSH (10:30)
--- NOTE | 2021-07-30 10:32 | PM.PNNEP ---
Progress Note: A&P Additional Plan 1. Jaimie has acute kidney injury. This is on top of a baseline creatinine of 2.0. The patient had an ultrasound which was negative. Urine electrolytes are non pre renal. 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 her creatinine luis from 3.9 yesterday to 5.2 today. She is making some urine. Will hold off on diuretics. She had plasmapheresis yesterday. He will get hemodialysis and plasmapheresis tomorrow. Biopsy is due today. 1.5 the patient has multiple myeloma. She is getting plasmapheresis. Dr. Finch deciding when to start dexamethasone and Velcade. 2. The patient has hypertension. Her systolic was 127 this morning. she is on metoprolol 50mg per day And Amlodipine daily as well. 3. The patient has diabetes. She is on medications per hospitalist. 4. The patient has anemia. B12 and folate are okay. T sat was low. The patient is getting Epogen. Her hemoglobin is 8.8 today. 5. sleep apnea. The patient uses or CPAP machine 6. coronary disease status post stents. She is not having any chest pain 7. hyperlipidemia on medications Subjective Date/time seen: 07/30/21 08:05 Interval history: Jaimie is feeling better today. Eating well. She is nervous about her kidney biopsy. Exam Narrative: WDWN in NAD skin no rash or subcu nodules head ncat lungs clear to auscultation cor reg no rub or gallop abd BS+ nontender ext 1+ bilateral edema. Objective Data Vital Signs Vital Signs: Vital Signs - 24 hr 07/29/21 12:52 07/29/21 13:00 07/29/21 13:02 Temperature 36.8 C 36.8 C 36.8 C Pulse Rate 92 92 92 Respiratory Rate 18 18 18 Blood Pressure 139/82 139/82 139/82 Pulse Oximetry 97 97 97 Oxygen Delivery Fraction of Inspired Oxygen 07/29/21 13:07 07/29/21 13:25 07/29/21 13:40 Temperature 36.8 C 36.8 C 36.6 C Pulse Rate 90 84 89 Respiratory Rate 18 18 18 Blood Pressure 137/92 H 132/90 161/80 H Pulse Oximetry 99 99 99 Oxygen Delivery Fraction of Inspired Oxygen 07/29/21 11:50 07/29/21 12:40 07/29/21 12:52 Temperature 36.4 C 36.4 C 36.8 C Pulse Rate 70 74 90 Respiratory Rate 18 18 18 Blood Pressure Pulse Oximetry 98 Oxygen Delivery Fraction of Inspired Oxygen 07/29/21 13:07 07/29/21 13:20 07/29/21 13:40 Temperature 36.8 C 36.8 C 36.6 C Pulse Rate 90 84 89 Respiratory Rate 18 19 18 Blood Pressure Pulse Oximetry Oxygen Delivery Fraction of Inspired Oxygen 07/29/21 14:00 07/29/21 15:37 07/29/21 20:20 Temperature 37.1 C Pulse Rate 85 84 87 Respiratory Rate 20 16 Blood Pressure 145/75 H Pulse Oximetry 91 Oxygen Delivery Fraction of Inspired Oxygen 07/29/21 21:31 07/29/21 21:33 07/29/21 20:10 Temperature 37.1 C Pulse Rate 80 84 84 Respiratory Rate 18 18 Blood Pressure 146/54 H Pulse Oximetry 95 95 Oxygen Delivery Room Air Fraction of Inspired Oxygen 21 07/29/21 22:45 07/30/21 02:15 07/30/21 06:00 Temperature 36.3 C L Pulse Rate 70 67 Respiratory Rate 18 Blood Pressure 127/70 Pulse Oximetry 99 99 Oxygen Delivery CPAP CPAP Fraction of Inspired Oxygen 07/30/21 10:29 Temperature Pulse Rate 80 Respiratory Rate Blood Pressure Pulse Oximetry Oxygen Delivery Fraction of Inspired Oxygen Intake/Output Intake/Output: Intake & Output 07/27/21 07/28/21 07/29/21 07/30/21 23:59 23:59 23:59 23:59 Intake Total 2040 770 2104 260 Output Total 201 4700 900 Balance 1839 3930 1204 260 Meds/Results Medications: Active Medications Generic Name Dose Route Start Last Admin Trade Name Freq PRN Reason Stop Dose Admin Hydrocodone Bitart/Acetaminophen 1 tab 07/28/21 17:44 Hydrocodone/Acetaminophen (*Crx) 5-325 Mg Tablet PO Q6H PRN Pain Rated 4-6 Hydrocodone Bitart/Acetaminophen 1 tab 07/28/21 17:56 07/28/21 18:06 Hydrocodone/Acetaminophen (*Crx) 7.5-325 Mg Tablet P
[2021-07-30] MEDS: EPOETIN ALFA-EPBX 10,000 UNITS/ML VIAL 10000 UNITS SUB-Q (10:33)
[2021-07-30 11:36] LABS: Glucose Point of Care 74 mg/dl (65-105)
[2021-07-30 14:00] VITALS: BP 149/51; PULSE 84; RESP 18; TEMP 36.9; O2SAT 94
[2021-07-30] MEDS: FERROUS SULFATE 324 MG TABLET 648 MG PO (14:20)
[2021-07-30] MEDS: polyethylene glycoL 3350 17 GM POWD.PACK PO (14:20)
[2021-07-30 16:45] LABS: Glucose Point of Care 128 mg/dl (65-105)
[2021-07-30 20:04] LABS: Glucose Point of Care 157 mg/dl (65-105)
[2021-07-30] MEDS: INSULIN GLARGINE (LANTUS) 1,000 UNITS/10 ML VIAL 94 UNITS SUB-Q (20:30)
[2021-07-30] MEDS: PRIMIDONE 50 MG TABLET 100 MG PO (20:31)
[2021-07-30] MEDS: PREGABALIN (*CRX) 25 MG CAPSULE 75 MG PO (20:31)
[2021-07-30 20:32] VITALS: PULSE 80
[2021-07-30] MEDS: SERTRALINE HCL 50 MG TABLET PO (20:32)
[2021-07-30 22:00] VITALS: BP 150/63; PULSE 91; RESP 20; TEMP 36.6; O2SAT 96
[2021-07-30 22:15] VITALS: PULSE 85; O2SAT 95
[2021-07-31] VITALS (10 sets, daily range): BP systolic 152–161; BP diastolic 60–76; PULSE 69–83; RESP 18–20; TEMP 36.1–37.1; O2SAT 93–99
[2021-07-31 06:02] LABS: INR 1.3; Prothrombin Time 15.2 Seconds (11.1-14.7)
--- NOTE | 2021-07-31 07:35 | PC.NURSE ---
Pt bs 57, Md Cornell informed, noc lantus was 94 units changed to 80 units, x2 orange juice given will continue to monitor pt.
[2021-07-31 07:38] LABS: Glucose Point of Care 57 mg/dl (65-105)
--- NOTE | 2021-07-31 07:42 | PM.PNNEP ---
Progress Note: A&P Additional Plan 1. Jaimie has acute kidney injury. This is on top of a baseline creatinine of 2.0. The patient had an ultrasound which was negative. Urine electrolytes are non pre renal. 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 no labs today. will get some in am She is making some urine. Will hold off on diuretics. She had plasmapheresis yesterday. He will get hemodialysis and plasmapheresis tomorrow. Biopsy is due today. 1.5 the patient has multiple myeloma. She is getting plasmapheresis. Dr. Finch deciding when to start dexamethasone and Velcade. 2. The patient has hypertension. Her systolic was 161 this am. given clonidine. she was anxious for biopsy yesterday and bp luis to over 200. I will give her clonidine and buspar to try to keep the systolic down. she is on metoprolol 50mg per day And Amlodipine daily as well. 3. The patient has diabetes. She is on medications per hospitalist. 4. The patient has anemia. B12 and folate are okay. T sat was low. The patient is getting Epogen. Her hemoglobin is 8.8 today. 5. sleep apnea. The patient uses or CPAP machine 6. coronary disease status post stents. She is not having any chest pain 7. hyperlipidemia on medications Subjective Date/time seen: 07/31/21 07:42 Interval history: Jaimie is feeling better today. still has a tremor. eating okay Exam Narrative: WDWN in NAD skin no rash or subcu nodules head ncat lungs clear cor reg no rub or gallop abd BS+ nontender ext trace bilateral edema. Objective Data Vital Signs Vital Signs: Vital Signs - 24 hr 07/30/21 10:29 07/30/21 08:00 07/30/21 14:00 Temperature 36.9 C Pulse Rate 80 84 Respiratory Rate 18 Blood Pressure 149/51 H Pulse Oximetry 94 Oxygen Delivery Room Air 07/30/21 20:32 07/30/21 22:00 07/30/21 22:15 Temperature 36.6 C Pulse Rate 80 91 85 Respiratory Rate 20 Blood Pressure 150/63 H Pulse Oximetry 96 95 Oxygen Delivery CPAP 07/31/21 02:42 07/31/21 05:52 Temperature 37.1 C Pulse Rate 83 69 Respiratory Rate 18 Blood Pressure 161/60 H Pulse Oximetry 96 97 Oxygen Delivery CPAP Intake/Output Intake/Output: Intake & Output 07/28/21 07/29/21 07/30/21 07/31/21 23:59 23:59 23:59 23:59 Intake Total 770 2104 940 250 Output Total 4700 900 250 500 Balance -3930 1204 690 -250 Meds/Results Medications: Active Medications Generic Name Dose Route Start Last Admin Trade Name Freq PRN Reason Stop Dose Admin Hydrocodone Bitart/Acetaminophen 1 tab 07/28/21 17:44 Hydrocodone/Acetaminophen (*Crx) 5-325 Mg Tablet PO Q6H PRN Pain Rated 4-6 Hydrocodone Bitart/Acetaminophen 1 tab 07/28/21 17:56 07/28/21 18:06 Hydrocodone/Acetaminophen (*Crx) 7.5-325 Mg Tablet PO 1 tab Q6H PRN Administration Pain Rated 7-10 Albuterol 2 puff 07/17/21 20:51 07/21/21 16:49 Albuterol Sulfate (*Sp) Aerosol 1 Puff INHALATION 2 puff Q4H PRN Administration Shortness Of Breath Amlodipine Besylate 5 mg 07/28/21 13:25 07/30/21 10:28 Amlodipine Besylate 5 Mg Tablet PO 5 mg QAM JERROD Administration Aspirin 81 mg 07/18/21 08:00 07/21/21 09:43 Aspirin 81 Mg Chewable Tablet PO 81 mg DAILY@0800 JERROD Administration Bumetanide 2 mg 07/27/21 09:00 07/30/21 10:30 Bumetanide Inj 1 Mg/4 Ml Vial IV PUSH 2 mg QAM JERROD Administration Calcitriol 0.25 mcg 07/18/21 09:00 07/30/21 10:27 Calcitriol 0.25 Mcg Capsule PO 0.25 mcg DAILY JERROD Administration Cyclobenzaprine HCl 10 mg 07/18/21 12:55 07/30/21 20:32 Cyclobenzaprine Hcl 10 Mg Tablet PO 10 mg Q12HR JERROD Administration Dabigatran 150 mg 07/18/21 09:00 07/23/21 11:01 Dabigatran Etexilate 150 Mg Capsule PO Not Given BID JERROD Dextrose 12.5 gm 07/17/21 19:58 07/21/21 06:50 Dextrose 50% 25 Gm/50 Ml Syringe IV PUSH 12.5 gm PRN PRN Administra
[2021-07-31] MEDS: FENOFIBRATE,MICRONIZED 48 MG TABLET PO (08:00)
[2021-07-31] MEDS: ISOSORBIDE MONONITRATE 30 MG TAB.ER.24H PO (08:00)
[2021-07-31] MEDS: calcitrioL 0.25 MCG CAPSULE PO (08:00)
[2021-07-31] MEDS: CYCLOBENZAPRINE HCL 10 MG TABLET PO ×2 (08:00→20:41)
[2021-07-31] MEDS: PRIMIDONE 50 MG TABLET PO (08:00)
[2021-07-31] MEDS: MONTELUKAST SODIUM 10 MG TABLET PO (08:00)
[2021-07-31] MEDS: BUMETANIDE INJ 1 MG/4 ML VIAL 2 MG IV PUSH (08:01)
[2021-07-31] MEDS: PANTOPRAZOLE 40 MG TABLET PO (08:01)
[2021-07-31] MEDS: MAGNESIUM OXIDE 400 MG TABLET PO (08:01)
[2021-07-31] MEDS: LORATADINE 10 MG TABLET PO (08:01)
[2021-07-31] MEDS: amLODIPine BESYLATE 5 MG TABLET PO (08:01)
[2021-07-31] MEDS: PREGABALIN (*CRX) 25 MG CAPSULE PO (08:03)
[2021-07-31] MEDS: METOPROLOL TARTRATE 25 MG TABLET PO ×2 (08:04→20:42)
[2021-07-31] MEDS: FLUTICASONE/SALMETEROL 230-21 MCG INHALER 1 PUFF 2 PUFF INHALATION ×2 (08:04→20:32)
[2021-07-31] MEDS: UMECLIDINIUM BROMIDE 62.5 MCG ELLIPTA 1 PUFF INHALATION ×2 (08:04→10:11)
[2021-07-31 08:54] LABS: Glucose Point of Care 98 mg/dl (65-105)
[2021-07-31] MEDS: busPIRone HCL 2.5 MG, busPIRone HCL 5 MG 7.5 MG PO (08:56)
[2021-07-31] MEDS: cloNIDine HCL 0.1 MG TABLET PO (08:58)
[2021-07-31] MEDS: LORazepam (*CRX) 0.5 MG TABLET PO (10:09)
--- NOTE | 2021-07-31 11:08 | PM.IMPN ---
Progress Note: A&P Assessment and Plan (1) Acute on chronic kidney failure: Code(s): N17.9 - Acute kidney failure, unspecified; N18.9 - Chronic kidney disease, unspecified Status: Acute Assessment and Plan: Etiology not entirely clear though may in part be due to dehydration given reports of poor oral intake over the past several days. She does have multiple myeloma which could also have precipitated the acute kidney injury. At this time will avoid nephrotoxic agents and cautiously hydrate overnight. Renal biopsy plan today. (2) Acute on chronic anemia: Code(s): D64.9 - Anemia, unspecified Status: Acute Assessment and Plan: Transfused to a stable hemoglobin. (3) Multiple myeloma: Code(s): C90.00 - Multiple myeloma not having achieved remission Status: Chronic Assessment and Plan: holding her oral chemotherapy at this time. (4) Insulin dependent type 2 diabetes mellitus: Code(s): E11.9 - Type 2 diabetes mellitus without complications; Z79.4 - roasterman (current) use of insulin Status: Acute Assessment and Plan: Continue basal insulin. Initiate sliding scale insulin, Accu-Cheks, and hypoglycemic protocol. (5) Obstructive sleep apnea on CPAP: Code(s): G47.33 - Obstructive sleep apnea (adult) (pediatric); Z99.89 - Dependence on other enabling machines and devices Status: Acute Assessment and Plan: CPAP will be provided for the patient to use while hospitalized. (6) Hypertension: Code(s): I10 - Essential (primary) hypertension Status: Acute Assessment and Plan: Monitor blood pressure (7) Paroxysmal atrial fibrillation: Code(s): I48.0 - Paroxysmal atrial fibrillation Status: Acute Assessment and Plan: Currently sounds to be in a sinus rhythm. Additional Plan 07/18/2021 interval history: Patient is a 76-year-old female with history for multiple myeloma presented with complaint of generalized weakness her hemoglobin was 7.6 upon arrival patient was given 2 units of pack RBC, her hemoglobin is 9, patient states is feeling little better now however complains of pain in the neck, will apply Lidoderm patch, will continue Lyrica and [place] and to further evaluate with C-spine x-ray, her urine is suspicious for UTI, started the patient on ceftriaxone follow-up on urine and blood culture will also consult her oncologist for further recommendation, 07/19/2021 interval history: Patient is a 76-year-old female with history for multiple myeloma presented with complaint of generalized weakness her hemoglobin was 7.6, upon arrival patient was given 2 units of pack RBC, her hemoglobin was 9, and today her hgb is 8.6, she also has SOLANGE upon arrival herBUN was 32 and Scr was 4 today her BUN is 50 and Scr is 6.7 most likely due to dehydration, poor PO intake, her kidney US is normal, will start gentle hydration and consult computer technology teacher for further evaluation, and patient states is feeling little better now however complains of pain in the neck, will apply Lidoderm patch, will continue Lyrica and [place] and to further evaluate with C-spine x-ray, which showed Severe cervical spondylosis. will consult ortho, her urine is suspicious for UTI, started the patient on ceftriaxone follow-up on urine and blood culture will also consult her oncologist for further recommendation. 07/20/2021 interval history: Patient is a 76-year-old female with history for multiple myeloma presented with complaint of generalized weakness her hemoglobin was 7.6, upon arrival patient was given 2 units of pack RBC, her hemoglobin was 9, and today her hgb is 8.6, she also has SOLANGE upon arrival herBUN was 32 and Scr was 4 today her BUN is 55 and Scr is 7.6 suspected most likely due to dehydration, poor PO intake, her kidney US is normal, started gentle hydration and consulted computer technology teacher for further evaluation, computer technology teacher suspect patient had
[2021-07-31] MEDS: DEXTROSE 5% 1,000 ML 1,000 ML 100 ML IVPB (11:13)
[2021-07-31 11:16] LABS: Glucose Point of Care 60 mg/dl (65-105)
--- NOTE | 2021-07-31 11:17 | PC.NURSE ---
Pt bs 60 Md Cornell informed, US informed, rechecking bs in 30 minutes. Dextrose 5% started at 100 ml/hr
--- NOTE | 2021-07-31 11:35 | PC.NURSE ---
24 hr urine started at 1132am 07/31/21
[2021-07-31] MEDS: DEXTROSE 50% 25 GM/50 ML SYRINGE IV PUSH (11:41)
--- NOTE | 2021-07-31 11:42 | PC.NURSE ---
bsd recheck 64, 12.5g dextrose 50% given will recheck, Md Cornell aware.
--- NOTE | 2021-07-31 11:57 | PC.NURSE ---
bs 110
[2021-07-31 11:58] LABS: Glucose Point of Care 110 mg/dl (65-105)
[2021-07-31 11:58] LABS: Glucose Point of Care 64 mg/dl (65-105)
--- NOTE | 2021-07-31 12:46 | PCNFU ---
Nutrition Follow-Up Complete: Inadequate oral intake related to decreased appetite as evidenced by oral intake of around 25% of meals. Goal: Eating 75% or more of meals with Glucerna (220kcal, 10gm protein each) BID. - Pt has met goal, continue goal to eat 75% or more of meals when PO diet. Pt current nutrition is NPO. Last recorded weight is 120 kg, down 11.2kg from previous weight (07/26). Bowel Motility: Last BM was recorded on 07/27. Labs Reviewed: Hgb 9.7, Hct 30.3, GFR 8, BUN 28, Cr 5.2 Meds Noted: Saline, Miralax, Lantus, Novolog, Ferrious Sulfate, Zofran Skin: Scab on chest Additional Notes: Pt is currently NPO, but is eating 85% of meals when PO, exceeding her goal. Pt reports she doesn't like her Glucena Shakes and has not been drinking them. Pt is reporting a fair appetite. Will d/c Glucerna shakes. Monitor changes in wt, oral intake % of meal and Glucerna (220kcal, 10gm protein each) BID, and labs every 5 days.
--- NOTE | 2021-07-31 15:28 | PC.NURSE ---
called Michaela and informed her that frozen plasma x3 will need to be ready for apheresis tomorrow
[2021-07-31] MEDS: FERROUS SULFATE 324 MG TABLET 648 MG PO ×2 (15:32→15:55)
[2021-07-31] MEDS: OMEGA 3 POLYUNSAT FATTY ACIDS 1 GM CAP 2 GM PO (15:55)
[2021-07-31 16:17] LABS: Glucose Point of Care 55 mg/dl (65-105)
--- NOTE | 2021-07-31 16:31 | PC.NURSE ---
bs now 77
[2021-07-31 16:32] LABS: Glucose Point of Care 77 mg/dl (65-105)
--- NOTE | 2021-07-31 16:52 | PC.NURSE ---
Md Cornell changed noc lantus to 40 units.
--- NOTE | 2021-07-31 18:13 | PC.NURSE ---
pt pulled off dialysis catheter dressing changed dressing.
[2021-07-31] MEDS: SERTRALINE HCL 50 MG TABLET PO (20:41)
[2021-07-31] MEDS: PRIMIDONE 50 MG TABLET 100 MG PO (20:42)
[2021-07-31] MEDS: PREGABALIN (*CRX) 25 MG CAPSULE 75 MG PO (20:43)
[2021-07-31 20:46] LABS: Glucose Point of Care 90 mg/dl (65-105)
[2021-08-01] VITALS (11 sets, daily range): BP systolic 134–152; BP diastolic 53–70; PULSE 61–86; RESP 14–20; TEMP 36.1–36.9; O2SAT 95–97
[2021-08-01 06:05] LABS: Hematocrit 30.1 % (37.0-47.0); Hemoglobin 9.2 g/dL (12.0-15.0); Immature Platelet Fraction Pct 6.1 % (0.9-11.2); Mean Corpuscular HGB Conc 30.6 g/dl (32-36); Mean Corpuscular Hemoglobin 29.6 pg (26-34); Mean Corpuscular Volume 96.8 fl (80-100); Mean Platelet Volume 10.7 fl (7.4-10.4); Platelet Count Result 78 k/mm3 (150-375); Red Blood Count 3.11 M/mm3 (4.2-5.4); Red Cell Distribution Width 15.8 % (11.5-14.5); White Blood Count 3.4 K/mm3 (4.5-10.0)
[2021-08-01] MEDS: OMEGA 3 POLYUNSAT FATTY ACIDS 1 GM CAP 2 GM PO ×2 (06:09→16:45)
[2021-08-01 06:14] LABS: INR 1.2; Prothrombin Time 14.8 Seconds (11.1-14.7)
[2021-08-01 06:19] LABS: Albumin Level 3.8 g/dL (3.5-5.1); Anion Gap 9 mmol/L (8-16); Blood Urea Nitrogen 34 mg/dL (7-17); Calcium 8.5 mg/dL (8.4-10.2); Carbon Dioxide 27 mmol/L (22-30); Chloride 103 mmol/L (98-107); Estimated CRCL calculation 9 ml/min; Estimated Glomerular Filt Rate 6; Glucose 97 mg/dL (65-110); Phosphorus 8.8 mg/dL (2.5-4.5); Sodium 139 mmol/L (137-145)
[2021-08-01 07:44] LABS: Glucose Point of Care 92 mg/dl (65-105)
[2021-08-01] MEDS: CALCIUM GLUC 2,000 MG/NS 100ML 2,000 MG/100 ML BAG 100 MG IVPB (08:00)
[2021-08-01] MEDS: SODIUM CHLORIDE 0.9% IV 1,000 ML 10 ML IV CONT (08:00)
[2021-08-01 08:11] LABS: Lambda Light Chain 3513.8 mg/L (5.7-26.3)
[2021-08-01 08:11] LABS: Kappa\\Lambda Light Chains 0.01 (0.26-1.65); Lambda Light Chain 4271.2 mg/L (5.7-26.3)
[2021-08-01 08:11] LABS: Kappa\\Lambda Light Chains 0.01 (0.26-1.65)
[2021-08-01] MEDS: FLUTICASONE/SALMETEROL 230-21 MCG INHALER 1 PUFF 2 PUFF INHALATION ×2 (08:19→20:34)
[2021-08-01] MEDS: UMECLIDINIUM BROMIDE 62.5 MCG ELLIPTA 1 PUFF INHALATION (08:19)
--- NOTE | 2021-08-01 08:58 | PCOTNOTE ---
Patient receiving fresh, frozen plasma per RN. Unavailable. Will continue plan of care.
--- NOTE | 2021-08-01 09:17 | PCPTNOTE ---
The patient treatment was not able to be completed due to receiving plasmapheresis. Will plan to continue treatment per plan of care.
--- NOTE | 2021-08-01 10:12 | PC.NURSE ---
Usman RM# [id number] today for scheduled TPE #6 PT: Jaimie Nix DR: Saad Marques MD DX: MM PROCEDURE: TPE ORDERS: 2000mL ALBUMIN 5% 1000mL FFP LABS: verified ACCESS: R- SubClavian Tip @ SVC Performed well; brisk blood return, flushes without resistance BLUE: RETURN RED: DRAW Accessed under sterile/aseptic technique De-accessed under the same technique. Flushed with NS, Locked with ACDA and capped per protocol. ASSESSMENT: A&O x 4 with some memory difficulties VS stable throughout Awake for entire treatment TIMES Start 0800 Stop 0934 VOLUMES Total Inlet Processed: 5853 Total Volume In: 3280 Plasma Removed: 3275 Fluid Balance: +5 TREATMENT PLAN: Per Dr Marques, TPE tentative for 08-03-21. Kidney Bx should be back later today. Dr Marques to consult with Dr Finch (Hem/Onc) regarding Light Chains numbers not changing. If we are to continue TPE is will change to all ALBUMIN. Dr Marques will contact [facility] with treatment plan once decided.
[2021-08-01] MEDS: EPOETIN ALFA-EPBX 10,000 UNITS/ML VIAL 10000 UNITS SUB-Q (10:17)
[2021-08-01] MEDS: ISOSORBIDE MONONITRATE 30 MG TAB.ER.24H PO (10:19)
[2021-08-01] MEDS: MAGNESIUM OXIDE 400 MG TABLET PO (10:19)
[2021-08-01] MEDS: CYCLOBENZAPRINE HCL 10 MG TABLET PO ×2 (10:19→20:05)
[2021-08-01] MEDS: FENOFIBRATE,MICRONIZED 48 MG TABLET PO (10:19)
[2021-08-01] MEDS: calcitrioL 0.25 MCG CAPSULE PO (10:19)
[2021-08-01] MEDS: PREGABALIN (*CRX) 25 MG CAPSULE PO (10:20)
[2021-08-01] MEDS: polyethylene glycoL 3350 17 GM POWD.PACK PO (10:20)
[2021-08-01] MEDS: METOPROLOL TARTRATE 25 MG TABLET PO ×2 (10:20→20:05)
[2021-08-01] MEDS: amLODIPine BESYLATE 5 MG TABLET PO (10:20)
[2021-08-01] MEDS: PRIMIDONE 50 MG TABLET PO (10:21)
[2021-08-01] MEDS: PANTOPRAZOLE 40 MG TABLET PO (10:21)
--- NOTE | 2021-08-01 10:57 | PM.IMPN ---
Progress Note: A&P Assessment and Plan (1) Acute on chronic kidney failure: Code(s): N17.9 - Acute kidney failure, unspecified; N18.9 - Chronic kidney disease, unspecified Status: Acute Assessment and Plan: Suspect secondary to progressive multiple myeloma, follow-up renal biopsy, appreciate nephrology consultation Received 2 units of packed red blood cells for hemoglobin of 7.6 and presentation of generalized weakness upon admission Kidney ultrasound was essentially normal Currently receiving plasmapheresis per Nephrology recommendations (2) Acute on chronic anemia: Code(s): D64.9 - Anemia, unspecified Status: Acute Assessment and Plan: Stable, defer Procrit administration to Nephrology (3) Multiple myeloma: Code(s): C90.00 - Multiple myeloma not having achieved remission Status: Chronic Assessment and Plan: holding her oral chemotherapy at this time. (4) Insulin dependent type 2 diabetes mellitus: Code(s): E11.9 - Type 2 diabetes mellitus without complications; Z79.4 - group home (current) use of insulin Status: Acute Assessment and Plan: Continue basal insulin. Initiate sliding scale insulin, Accu-Cheks, and hypoglycemic protocol. Controlled (5) Obstructive sleep apnea on CPAP: Code(s): G47.33 - Obstructive sleep apnea (adult) (pediatric); Z99.89 - Dependence on other enabling machines and devices Status: Acute Assessment and Plan: CPAP will be provided for the patient to use while hospitalized. (6) Hypertension: Code(s): I10 - Essential (primary) hypertension Status: Acute Assessment and Plan: Monitor blood pressure (7) Paroxysmal atrial fibrillation: Code(s): I48.0 - Paroxysmal atrial fibrillation Status: Acute Assessment and Plan: Currently sounds to be in a sinus rhythm. Additional Plan Patient is a 76-year-old female with history for multiple myeloma presented with complaint of generalized weakness her hemoglobin was 7.6, upon arrival patient was given 2 units of pack RBC, her hemoglobin was 9, and on 07/22 her hgb was 7.7, today it is drop to 7.4 will give 2 units of PRBC, she also has SOLANGE upon arrival her BUN was 32 and Scr was 4 on 07/22 her BUN was 53 and Scr is 8.8 suspected most likely due to dehydration, poor PO intake, her kidney US is normal, started gentle hydration and consulted inside horticultural specialty grower for further evaluation, inside horticultural specialty grower 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 and recommended plasmapheresis, patient was seen general surgery and had tunnel catheter placed and had plasmapheresis on 07/22 and again on 07/23 2 treatments plasma pheresis, there is slight improvement in serum creatinine 7.5 from 8.8,Nephrology thought there was no significant decrease so again on 07/25 patient received plasmapheresis and is slight improvement to Scr 6.7 and and on 07/26 patient was seen by inside horticultural specialty grower inside horticultural specialty grower recommended dialysis, today her SCr has improved 28/4.8 compared to 8.8 upon arrival will continue to monitor kidney function, and Dr. Finch has ordered light chain and it is persisting elevated, patient was scheduled to kidney biopsy on 07/27 now it is postpone until Friday. will follow-up, her urine was suspicious for UTI, started the patient on ceftriaxone follow-up on urine and blood culture, urine culture no growth so far, will stop antibiotics, patient did have a BM again today, patient complains of being weak and fatigue will have PT OT evaluate the patient, will continue to monitor kidney function. patient complains of tremor patient is not receiving much pain medication being treated with Primidon, will consult neurologist further recommendation. Subjective Date/time seen: 08/01/21 10:57 Review of Systems Review of Systems: Twelve point review of systems was reviewed and is negative except as noted in the HPI Exam Josh
[2021-08-01 11:44] LABS: Glucose Point of Care 144 mg/dl (65-105)
[2021-08-01 12:27] LABS: Kappa\\Lambda Light Chains 0.01 (0.26-1.65); Lambda Light Chain 3608.6 mg/L (5.7-26.3)
--- NOTE | 2021-08-01 13:53 | PM.PNNEP ---
Progress Note: A&P Additional Plan 1. Jaimie has acute kidney injury. This is on top of a baseline creatinine of 2.0. The patient had an ultrasound which was negative. Urine electrolytes are non pre renal. 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 renal biopsy was done yesterday. Today's creatinine was up above 7. Her kidney function is not very good right now. She will need to continue dialysis 3 times a week. 1.5 the patient has multiple myeloma. She is getting plasmapheresis. Dr. Finch deciding when to start dexamethasone and Velcade. Light chain levels are fairly stable in spite of plasmapheresis. Will see what the biopsy shows and then talk with Dr. are shot about what to do next. 2. The patient has hypertension. This is better. she is on metoprolol 50mg per day And Amlodipine daily as well. 3. The patient has diabetes. She is on medications per hospitalist. 4. The patient has anemia. B12 and folate are okay. T sat was low. The patient is getting Epogen. Her hemoglobin is 9.2 today. 5. sleep apnea. The patient uses or CPAP machine 6. coronary disease status post stents. She is not having any chest pain 7. hyperlipidemia on medications Subjective Date/time seen: 08/01/21 08:20 Interval history: Jaimie is feeling better today. She is on plasmapheresis. She is tolerating this well. She was seen at 8:20 a.m. Exam Narrative: WDWN in NAD skin no rash or subcu nodules head ncat lungs clear bilaterally cor reg no rub or gallop abd BS+ nontender ext trace bilateral edema. Objective Data Vital Signs Vital Signs: Vital Signs - 24 hr 07/31/21 14:00 07/31/21 20:42 07/31/21 21:48 Temperature 36.1 C L 36.1 C L Pulse Rate 77 77 73 Respiratory Rate 18 20 Blood Pressure 152/76 H 155/66 H Pulse Oximetry 98 93 Oxygen Delivery 07/31/21 23:40 08/01/21 03:01 08/01/21 05:59 Temperature 36.1 C L Pulse Rate 81 84 61 Respiratory Rate 20 Blood Pressure 146/70 H Pulse Oximetry 95 96 97 Oxygen Delivery CPAP CPAP 08/01/21 08:00 08/01/21 08:00 08/01/21 08:00 Temperature 36.6 C 36.6 C 36.6 C Pulse Rate 69 69 69 Respiratory Rate 20 20 20 Blood Pressure 142/53 H 142/53 H 142/53 H Pulse Oximetry 95 95 95 Oxygen Delivery 08/01/21 08:00 08/01/21 08:00 08/01/21 08:30 Temperature 36.6 C 36.6 C 36.2 C L Pulse Rate 69 69 75 Respiratory Rate 20 20 18 Blood Pressure 142/53 H Pulse Oximetry 95 95 Oxygen Delivery 08/01/21 09:00 08/01/21 09:34 08/01/21 10:20 Temperature 36.6 C 36.6 C Pulse Rate 77 80 75 Respiratory Rate 18 18 Blood Pressure Pulse Oximetry Oxygen Delivery Intake/Output Intake/Output: Intake & Output 07/29/21 07/30/21 07/31/21 08/01/21 23:59 23:59 23:59 23:59 Intake Total 2104 744 502 3603 Output Total 583 859 5733 Balance 1204 690 -610 1534 Meds/Results Medications: Active Medications Generic Name Dose Route Start Last Admin Trade Name Freq PRN Reason Stop Dose Admin Hydrocodone Bitart/Acetaminophen 1 tab 07/28/21 17:44 Hydrocodone/Acetaminophen (*Crx) 5-325 Mg Tablet PO Q6H PRN Pain Rated 4-6 Hydrocodone Bitart/Acetaminophen 1 tab 07/28/21 17:56 07/28/21 18:06 Hydrocodone/Acetaminophen (*Crx) 7.5-325 Mg Tablet PO 1 tab Q6H PRN Administration Pain Rated 7-10 Albuterol 2 puff 07/17/21 20:51 07/21/21 16:49 Albuterol Sulfate (*Sp) Aerosol 1 Puff INHALATION 2 puff Q4H PRN Administration Shortness Of Breath Amlodipine Besylate 5 mg 07/28/21 13:25 08/01/21 10:20 Amlodipine Besylate 5 Mg Tablet PO 5 mg QAM JERROD Administration Aspirin 81 mg 07/18/21 08:00 07/21/21 09:43 Aspirin 81 Mg Chewable Tablet PO 81 mg DAILY@0800 JERROD Administration Calcitriol 0.25 mcg 07/18/21 09:00 08/01/21 10:19 Calcitriol 0.25 Mcg Capsule PO 0.25 mcg DAILY JERROD Administration Cyclobenzaprine HCl 10 mg 07/18/21 12:55 06
[2021-08-01 16:37] LABS: Glucose Point of Care 137 mg/dl (65-105)
[2021-08-01] MEDS: HYDROcodone/acetaminophen (*CRX) 5-325 MG TABLET 1 TAB PO (16:48)
[2021-08-01] MEDS: INSULIN GLARGINE (LANTUS) 1,000 UNITS/10 ML VIAL 40 UNITS SUB-Q (20:05)
[2021-08-01] MEDS: PREGABALIN (*CRX) 25 MG CAPSULE 75 MG PO (20:05)
[2021-08-01] MEDS: SERTRALINE HCL 50 MG TABLET PO (20:05)
[2021-08-01] MEDS: PRIMIDONE 50 MG TABLET 100 MG PO (20:05)
[2021-08-01 20:13] LABS: Glucose Point of Care 143 mg/dl (65-105)
[2021-08-02] VITALS (17 sets, daily range): BP systolic 131–193; BP diastolic 53–112; PULSE 61–90; RESP 12–20; TEMP 36.2–37; O2SAT 95–98
[2021-08-02] MEDS: OMEGA 3 POLYUNSAT FATTY ACIDS 1 GM CAP 2 GM PO ×2 (06:29→17:32)
[2021-08-02 07:21] LABS: Hematocrit 29.8 % (37.0-47.0); Immature Platelet Fraction Pct 6.2 % (0.9-11.2); Mean Corpuscular HGB Conc 30.2 g/dl (32-36); Mean Corpuscular Hemoglobin 29.3 pg (26-34); Mean Corpuscular Volume 97.1 fl (80-100); Mean Platelet Volume 11.7 fl (7.4-10.4); Platelet Count Result 70 k/mm3 (150-375); Red Blood Count 3.07 M/mm3 (4.2-5.4); Red Cell Distribution Width 15.9 % (11.5-14.5); White Blood Count 3.6 K/mm3 (4.5-10.0)
[2021-08-02 07:27] LABS: INR 1.2; Prothrombin Time 15.2 Seconds (11.1-14.7)
[2021-08-02 07:32] LABS: Albumin Level 3.7 g/dL (3.5-5.1); Anion Gap 12 mmol/L (8-16); Blood Urea Nitrogen 40 mg/dL (7-17); Calcium 8.2 mg/dL (8.4-10.2); Carbon Dioxide 22 mmol/L (22-30); Chloride 105 mmol/L (98-107); Estimated CRCL calculation 8 ml/min; Estimated Glomerular Filt Rate 5; Glucose 97 mg/dL (65-110); Phosphorus 8.5 mg/dL (2.5-4.5); Potassium 4.3 mmol/L (3.4-5.0); Sodium 139 mmol/L (137-145)
[2021-08-02 07:35] LABS: Glucose Point of Care 91 mg/dl (65-105)
[2021-08-02] MEDS: FLUTICASONE/SALMETEROL 230-21 MCG INHALER 1 PUFF 2 PUFF INHALATION ×2 (07:45→19:47)
[2021-08-02] MEDS: UMECLIDINIUM BROMIDE 62.5 MCG ELLIPTA 1 PUFF INHALATION (07:45)
--- NOTE | 2021-08-02 09:45 | PC.NURSE ---
To dialysis via bed
[2021-08-02] MEDS: HYDROcodone/acetaminophen (*CRX) 5-325 MG TABLET 1 TAB PO (10:38)
[2021-08-02 12:22] LABS: Glucose Point of Care 122 mg/dl (65-105)
--- NOTE | 2021-08-02 12:28 | PM.PNNEP ---
Progress Note: A&P Additional Plan 1. Jaimie has acute kidney injury. This is on top of a baseline creatinine of 2.0. The patient had an ultrasound which was negative. Urine electrolytes are non pre renal. renal biopsy shows cast nephropathy. This confirms that the myeloma is what is affecting the kidneys. I would let Dr. Finch know. He will start Dexamethasone and look into the Velcade. Today's creatinine was up above 7. Urine output is now low. With the drop in the urine output her lytes change did go up above 4000 but then with plasmapheresis dropped to 3600. We may need to continue plasmapheresis as an outpatient as well. Will need to continue dialysis 3 times a week. She will need this as an outpatient. Hepatitis studies are all okay. 1.5 the patient has multiple myeloma. She is getting plasmapheresis. Dr. Finch Will start dexamethasone and Velcade at some point. 2. The patient has hypertension. This is better. she is on metoprolol 50mg per day And Amlodipine daily as well. 3. The patient has diabetes. She is on medications per hospitalist. 4. The patient has anemia. B12 and folate are okay. T sat was low. The patient is getting Epogen. Her hemoglobin is 9.0 today. 5. sleep apnea. The patient uses or CPAP machine 6. coronary disease status post stents. She is not having any chest pain 7. hyperlipidemia on medications Subjective Date/time seen: 08/02/21 12:28 Interval history: Jaimie is feeling better today. She is on Dialysis pain she is tolerating this well. She was seen at noon Exam Narrative: WDWN in NAD skin no rash or subcu nodules head ncat lungs clear bilaterally cor reg no rub or gallop abd BS+ nontender ext trace bilateral edema. Objective Data Vital Signs Vital Signs: Vital Signs - 24 hr 08/01/21 14:00 08/01/21 20:05 08/01/21 21:53 Temperature 36.4 C 36.9 C Pulse Rate 79 86 83 Respiratory Rate 14 20 Blood Pressure 152/53 H 134/59 L Pulse Oximetry 95 95 Oxygen Delivery 08/01/21 22:25 08/02/21 03:35 08/02/21 06:00 Temperature 36.2 C L Pulse Rate 80 77 61 Respiratory Rate 20 Blood Pressure 132/86 Pulse Oximetry 95 95 98 Oxygen Delivery CPAP CPAP 08/02/21 08:20 08/02/21 09:50 08/02/21 10:00 Temperature 36.7 C Pulse Rate 78 75 Respiratory Rate 18 Blood Pressure 193/66 H 134/85 Pulse Oximetry Oxygen Delivery Room Air 08/02/21 10:20 08/02/21 10:40 08/02/21 11:00 Temperature Pulse Rate 87 84 66 Respiratory Rate Blood Pressure 131/101 H 172/73 H 188/112 H Pulse Oximetry Oxygen Delivery 08/02/21 11:20 Temperature Pulse Rate 67 Respiratory Rate Blood Pressure 189/93 H Pulse Oximetry Oxygen Delivery Intake/Output Intake/Output: Intake & Output 07/30/21 07/31/21 08/01/21 08/02/21 23:59 23:59 23:59 23:59 Intake Total 886 825 3205 750 Output Total 250 1300 700 Balance 690 610 0774 750 Meds/Results Medications: Active Medications Generic Name Dose Route Start Last Admin Trade Name Freq PRN Reason Stop Dose Admin Hydrocodone Bitart/Acetaminophen 1 tab 07/28/21 17:44 08/02/21 10:38 Hydrocodone/Acetaminophen (*Crx) 5-325 Mg Tablet PO 1 tab Q6H PRN Administration Pain Rated 4-6 Hydrocodone Bitart/Acetaminophen 1 tab 07/28/21 17:56 07/28/21 18:06 Hydrocodone/Acetaminophen (*Crx) 7.5-325 Mg Tablet PO 1 tab Q6H PRN Administration Pain Rated 7-10 Albuterol 2 puff 07/17/21 20:51 07/21/21 16:49 Albuterol Sulfate (*Sp) Aerosol 1 Puff INHALATION 2 puff Q4H PRN Administration Shortness Of Breath Amlodipine Besylate 5 mg 07/28/21 13:25 08/01/21 10:20 Amlodipine Besylate 5 Mg Tablet PO 5 mg QAM JERROD Administration Aspirin 81 mg 07/18/21 08:00 07/21/21 09:43 Aspirin 81 Mg Chewable Tablet PO 81 mg DAILY@0800 JERROD Administration Calcitriol 0.25 mcg 07/18/21 09:00 08/01/21
--- NOTE | 2021-08-02 12:37 | WPDONCPN ---
Progress Note: A/P - Additional Plan Multiple myeloma. Case discussed with Dr. Marques. Kidney biopsy showed myeloma kidney. I have also discussed with Lisa( infusion director ) regarding starting Velcade inpatient. Unfortunately hospital will not be able to do Velcade inpatient. We will start her on dexamethasone 40 mg daily for 3 days. She will start Velcade after the discharge in my office on a weekly basis. Patient is receiving hemodialysis treatment 3. Today. Anemia secondary to chronic kidney disease. Patient is on Procrit with iron. Hemoglobin stable. Acute renal failure. Kidney biopsy noted. Patient is on hemodialysis. - Time Spent With Patient Total time spent is greater than 50% in coordination of care (as documented) at patient's floor/unit and/or counseling patient: 25 - 35 minutes Subjective Interval history: Multiple myeloma Acute renal failure Review of Systems - Review of Systems Patient is getting hemodialysis today. She denies any chest pain but remains slightly tired and fatigued. Denies any bleeding and bruising. Denies any abdominal pain. No other new complaints. - Neurologic Reports system reviewed and no additional complaints, except as documented, Reports hearing normal, Reports numbness, Reports weakness, Denies abnormal speech, Denies abnormal gait, Denies confusion, Denies headache(s), Denies other visual disturbances Exam Vital signs: Maryann Bacon. Assessment of coma and impaired consciousness. A practical scale. Lancet 1974; 2:81-4. Narrative: Lungs are clear to auscultation bilaterally Cardiovascular regular rate rhythm no murmurs Abdomen soft nontender nondistended bowel sounds are positive Extremities is no edema PN: Objective Data - Labs CBC & Chem 7: 08/02/21 06:44 08/02/21 06:44 Labs: Laboratory Results - last 24 hr 08/01/21 08/01/21 08/02/21 16:34 20:03 06:44 WBC RBC Hgb Hct MCV MCH MCHC RDW Plt Count MPV % Immature Plt Fraction PT 15.2 H INR 1.2 Sodium Potassium Chloride Carbon Dioxide Anion Gap BUN Creatinine Estim Creat Clear Calc Estimated GFR Glucose POC Capillary Glucose 137 H 143 H Calcium Phosphorus Albumin 08/02/21 08/02/21 08/02/21 06:44 06:44 07:27 WBC 3.6 L RBC 3.07 L Hgb 9.0 L Hct 29.8 L MCV 97.1 MCH 29.3 MCHC 30.2 L RDW 15.9 H Plt Count 70 L MPV 11.7 H % Immature Plt Fraction 6.2 PT INR Sodium 139 Potassium 4.3 Chloride 105 Carbon Dioxide 22 Anion Gap 12 BUN 40 H Creatinine 7.90 H Estim Creat Clear Calc 8 Estimated GFR 5 L Glucose 97 POC Capillary Glucose 91 Calcium 8.2 L Phosphorus 8.5 H Albumin 3.7 08/02/21 12:18 WBC RBC Hgb Hct MCV MCH MCHC RDW Plt Count MPV % Immature Plt Fraction PT INR Sodium Potassium Chloride Carbon Dioxide Anion Gap BUN Creatinine Estim Creat Clear Calc Estimated GFR Glucose POC Capillary Glucose 122 H Calcium Phosphorus Albumin
--- NOTE | 2021-08-02 13:24 | PCCCNOTE ---
On 08/02/21, the student, [Mary Lou Sevilla], provided care and completed [facility] documentation on this patient. I have reviewed the student's documentation and agree with the findings.
[2021-08-02] MEDS: FERROUS SULFATE 324 MG TABLET 648 MG PO (13:30)
--- NOTE | 2021-08-02 13:30 | PC.NURSE ---
Back from dialysis via bed.
[2021-08-02] MEDS: calcitrioL 0.25 MCG CAPSULE PO (13:31)
[2021-08-02] MEDS: FENOFIBRATE,MICRONIZED 48 MG TABLET PO (13:31)
[2021-08-02] MEDS: MAGNESIUM OXIDE 400 MG TABLET PO (13:31)
[2021-08-02] MEDS: CYCLOBENZAPRINE HCL 10 MG TABLET PO ×2 (13:31→20:31)
--- NOTE | 2021-08-02 13:31 | PCCCNOTE ---
On 08/02/21, the student, [Mary Lou Sevilla], provided care and completed [facility] documentation on this patient. I have reviewed the student's documentation and agree with the findings.
[2021-08-02] MEDS: ISOSORBIDE MONONITRATE 30 MG TAB.ER.24H PO (13:32)
[2021-08-02] MEDS: amLODIPine BESYLATE 5 MG TABLET PO (13:32)
[2021-08-02] MEDS: PREGABALIN (*CRX) 25 MG CAPSULE PO (13:32)
[2021-08-02] MEDS: PRIMIDONE 50 MG TABLET PO (13:32)
[2021-08-02] MEDS: PANTOPRAZOLE 40 MG TABLET PO (13:32)
[2021-08-02] MEDS: METOPROLOL TARTRATE 25 MG TABLET PO ×2 (13:33→20:31)
[2021-08-02] MEDS: DEXAMETHASONE 4 MG TABLET 40 MG PO (13:35)
[2021-08-02 16:59] LABS: Glucose Point of Care 208 mg/dl (65-105)
[2021-08-02] MEDS: INSULIN ASPART (*BKC) 100 UNITS/ML SUB-Q (17:31)
--- NOTE | 2021-08-02 17:37 | PM.IMPN ---
Progress Note: A&P Assessment and Plan (1) Acute on chronic kidney failure: Code(s): N17.9 - Acute kidney failure, unspecified; N18.9 - Chronic kidney disease, unspecified Status: Acute Assessment and Plan: Suspect secondary to progressive multiple myeloma, follow-up renal biopsy, appreciate nephrology consultation Currently receiving plasmapheresis per Nephrology recommendations Received hemodialysis this morning (2) Acute on chronic anemia: Code(s): D64.9 - Anemia, unspecified Status: Acute Assessment and Plan: Stable, defer Procrit administration to Nephrology (3) Multiple myeloma: Code(s): C90.00 - Multiple myeloma not having achieved remission Status: Chronic Assessment and Plan: holding her oral chemotherapy at this time. (4) Insulin dependent type 2 diabetes mellitus: Code(s): E11.9 - Type 2 diabetes mellitus without complications; Z79.4 - intermediate designer (current) use of insulin Status: Acute Assessment and Plan: Continue basal insulin. Initiate sliding scale insulin, Accu-Cheks, and hypoglycemic protocol. Controlled (5) Obstructive sleep apnea on CPAP: Code(s): G47.33 - Obstructive sleep apnea (adult) (pediatric); Z99.89 - Dependence on other enabling machines and devices Status: Acute Assessment and Plan: CPAP will be provided for the patient to use while hospitalized. (6) Hypertension: Code(s): I10 - Essential (primary) hypertension Status: Acute Assessment and Plan: Monitor blood pressure (7) Paroxysmal atrial fibrillation: Code(s): I48.0 - Paroxysmal atrial fibrillation Status: Acute Assessment and Plan: Currently sounds to be in a sinus rhythm. Subjective Date/time seen: 08/02/21 17:37 Interval history: Patient resting comfortably without any complaints. She had hemodialysis this morning and feels about the same as yesterday. She is feeling very anxious about what is going to happen could because she does not want to be on hemodialysis long-term. She denies fevers or chills. No nausea vomiting diarrhea. No chest pain or shortness of breath. Review of Systems Review of Systems: Twelve point review of systems was reviewed and is negative except as noted in the HPI Exam Narrative: General: Patient resting comfortably in bed, no acute distress HEENT: Atraumatic, normocephalic, mucous membranes moist CV: Regular rate and rhythm, S1, S2, no murmurs rubs or gallops noted Lungs: Clear to auscultation bilaterally, no rales or crackles noted, no wheezes, good air entry Abdomen: Soft, nontender, nondistended Extremities: Normal to inspection, some nonpitting lymphedema noted bilaterally Skin: No rashes noted, no lesions or wounds seen Psych: Euthymic, normal affect Neuro: Cranial nerves 2-12 grossly intact, strength 5/5 upper and lower extremities noted Objective Data Vital Signs Vital Signs: Vital Signs - 24 hr 08/01/21 20:05 08/01/21 21:53 08/01/21 22:25 Temperature 98.5 F Pulse Rate 86 83 80 Respiratory Rate 20 Blood Pressure 134/59 L Pulse Oximetry 95 95 Oxygen Delivery CPAP 08/02/21 03:35 08/02/21 06:00 08/02/21 08:20 Temperature 97.1 F L Pulse Rate 77 61 Respiratory Rate 20 Blood Pressure 132/86 Pulse Oximetry 95 98 Oxygen Delivery CPAP Room Air 08/02/21 09:50 08/02/21 10:00 08/02/21 10:20 Temperature 98.0 F Pulse Rate 78 75 87 Respiratory Rate 18 Blood Pressure 193/66 H 134/85 131/101 H Pulse Oximetry Oxygen Delivery 08/02/21 10:40 08/02/21 11:00 08/02/21 11:20 Temperature Pulse Rate 84 66 67 Respiratory Rate Blood Pressure 172/73 H 188/112 H 189/93 H Pulse Oximetry Oxygen Delivery 08/02/21 12:20 08/02/21 12:40 08/02/21 13:00 Temperature Pulse Rate 87 90 79 Respiratory Rate Blood Pressure 176/110 H 171/100 H 150/53 H Pulse Oximetry Oxygen Deli
[2021-08-02] MEDS: hydrOXYzine HCL 25 MG TABLET PO (17:46)
[2021-08-02] MEDS: PREGABALIN (*CRX) 25 MG CAPSULE 75 MG PO (20:30)
[2021-08-02] MEDS: PRIMIDONE 50 MG TABLET 100 MG PO (20:31)
[2021-08-02] MEDS: SERTRALINE HCL 50 MG TABLET PO (20:31)
[2021-08-02] MEDS: INSULIN GLARGINE (LANTUS) 1,000 UNITS/10 ML VIAL 40 UNITS SUB-Q (20:31)
[2021-08-02 20:51] LABS: Glucose Point of Care 185 mg/dl (65-105)
[2021-08-03] VITALS (13 sets, daily range): BP systolic 121–179; BP diastolic 52–79; PULSE 66–95; RESP 16–20; TEMP 36.1–37.2; O2SAT 95–97
[2021-08-03 07:48] LABS: Glucose Point of Care 123 mg/dl (65-105)
[2021-08-03 07:56] LABS: Hematocrit 32.4 % (37.0-47.0); Mean Corpuscular HGB Conc 30.9 g/dl (32-36); Mean Corpuscular Hemoglobin 29.8 pg (26-34); Mean Corpuscular Volume 96.4 fl (80-100); Platelet Count Result 82 k/mm3 (150-375); Red Blood Count 3.36 M/mm3 (4.2-5.4); Red Cell Distribution Width 15.5 % (11.5-14.5); White Blood Count 3.1 K/mm3 (4.5-10.0)
[2021-08-03] MEDS: FLUTICASONE/SALMETEROL 230-21 MCG INHALER 1 PUFF 2 PUFF INHALATION ×2 (07:57→19:26)
[2021-08-03] MEDS: UMECLIDINIUM BROMIDE 62.5 MCG ELLIPTA 1 PUFF INHALATION (07:58)
[2021-08-03 08:04] LABS: INR 1.2; Prothrombin Time 14.5 Seconds (11.1-14.7)
[2021-08-03 08:20] LABS: Albumin Level 4.3 g/dL (3.5-5.1); Anion Gap 10 mmol/L (8-16); Blood Urea Nitrogen 25 mg/dL (7-17); Calcium 8.9 mg/dL (8.4-10.2); Carbon Dioxide 30 mmol/L (22-30); Chloride 100 mmol/L (98-107); Estimated CRCL calculation 10 ml/min; Estimated Glomerular Filt Rate 7; Glucose 103 mg/dL (65-110); Phosphorus 6.8 mg/dL (2.5-4.5); Potassium 4.5 mmol/L (3.4-5.0); Sodium 140 mmol/L (137-145)
[2021-08-03] MEDS: SODIUM CHLORIDE 0.9% IV 1,000 ML 10 ML IV CONT (08:40)
[2021-08-03] MEDS: CALCIUM GLUC 2,000 MG/NS 100ML 2,000 MG/100 ML BAG 100 MG IVPB (08:40)
--- NOTE | 2021-08-03 09:21 | PC.NURSE ---
Addendum entered by Miko Wray RN 08/03/21 10:48: ACCESS: R- [facility] Tip @ [facility] [place] Performed well; brisk blood return, flushes without resistance Original Note: 7Anderson RM# [id number] today for scheduled TPE #7 PT: Jaimie Nix DR: Saad Marques MD DX: MM Kidney PROCEDURE: TPE ORDERS: 3000mL ALBUMIN 5% LABS: verified ACCESS: R- [facility] Tip @ [facility] [place] Performed well; brisk blood return, flushes without resistance BLUE: RETURN RED: DRAW Accessed under sterile/aseptic technique De-accessed under the same technique. Flushed with NS, Locked with ACDA and capped per protocol. ASSESSMENT: A&O x 4 with memory difficulties improving VS stable throughout Awake for entire treatment TIMES Start 0840 Stop 0947 VOLUMES Total Inlet Processed: 5838 Total Volume In: 3199 Plasma Removed: 3192 Fluid Balance: +7 TREATMENT PLAN: Per Dr Marques, TPE 08-06-21, planned for here as inpatient, however status may change to outpatient. Kidney Bx revealed Myeloma. Dr Finch plans to start Velcade as outpatient, Dr Marques plans for Dialysis and TPE as outpatient alternating days. Light Chains numbers not back yet. Surgical Instrument Mechanic is working with patient to decide Rehab or home as patient is now ambulating independently and over all presentation is better. This is quite an involved treatment plan with many moving parts that will need to be coordinated adequately. TPE would need to be --, Dialysis - and possibly Dr Finch on Friday after after TPE.
[2021-08-03] MEDS: PREGABALIN (*CRX) 25 MG CAPSULE PO (10:11)
[2021-08-03] MEDS: METOPROLOL TARTRATE 25 MG TABLET PO ×2 (10:11→21:44)
[2021-08-03] MEDS: polyethylene glycoL 3350 17 GM POWD.PACK PO (10:12)
[2021-08-03] MEDS: CYCLOBENZAPRINE HCL 10 MG TABLET PO ×2 (10:14→21:44)
[2021-08-03] MEDS: ISOSORBIDE MONONITRATE 30 MG TAB.ER.24H PO (10:15)
[2021-08-03] MEDS: PANTOPRAZOLE 40 MG TABLET PO (10:15)
[2021-08-03] MEDS: FENOFIBRATE,MICRONIZED 48 MG TABLET PO (10:15)
[2021-08-03] MEDS: DEXAMETHASONE 4 MG TABLET 40 MG PO (10:15)
[2021-08-03] MEDS: calcitrioL 0.25 MCG CAPSULE PO (10:15)
[2021-08-03] MEDS: amLODIPine BESYLATE 5 MG TABLET PO (10:16)
[2021-08-03] MEDS: PRIMIDONE 50 MG TABLET PO (10:17)
[2021-08-03] MEDS: MAGNESIUM OXIDE 400 MG TABLET PO (10:17)
[2021-08-03] MEDS: EPOETIN ALFA-EPBX 10,000 UNITS/ML VIAL 10000 UNITS SUB-Q (10:17)
[2021-08-03 11:47] LABS: Glucose Point of Care 143 mg/dl (65-105)
--- NOTE | 2021-08-03 12:28 | P.PNNP_ITS ---
Progress Note: A&P Assessment and Plan (1) SOLANGE (acute kidney injury): Code(s): N17.9 - Acute kidney failure, unspecified Status: Acute Assessment and Plan: * this is secondary to BIOPSY PROVEN cast nephropathy * however, she also had signifiant scarring present (~ 70%) so there may be an element of disease progression as well * with rising creatinine in association with declining urine output and high degree of light chains, started on plasmapheresis and dialysis * plasmaphresis on M/W/F * hemodialysis on T/T/S * she will need outpatient dialysis * she may also need outpatient plasmapheresis as well (case management working on this) * follow trend of labs (in between dialysis) and UOP to assess for potential renal recovery (2) Chronic kidney disease, stage IV (severe): Code(s): N18.4 - Chronic kidney disease, stage 4 (severe) Status: Chronic Assessment and Plan: * baseline creatinine seems to run ~ 1.5 - 2.0mg/dl * 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 * suspect HTN and DM playing a role as well * see #1 (3) Multiple myeloma: Code(s): C90.00 - Multiple myeloma not having achieved remission Status: Chronic Assessment and Plan: * getting plasmapheresis * stated on steroidds -- to start Velcade as well * Hem/Onc following (4) Anemia: Code(s): D64.9 - Anemia, unspecified Status: Chronic Assessment and Plan: * likely due to SOLANGE, CKD, and mutiple myeloma * Epogen with HD * follow H/H (5) Hypertension: Code(s): I10 - Essential (primary) hypertension Status: Chronic Assessment and Plan: * reasonable control at this time * follow trend of hemodynamics (6) Diabetes: Qualifiers: Diabetes mellitus type: type 2 Diabetes mellitus termite inspector insulin use: without termite inspector use Diabetes mellitus complication status: without complic ation Qualified Code(s): E11.9 - Type 2 diabetes mellitus without complications Code(s): E11.9 - Type 2 diabetes mellitus without complications Status: Chronic Assessment and Plan: * follow accucheks * on Lantus and SSI Will continue to follow. Subjective Date/time seen: 08/03/21 12:28 Chart reviewed -- assuming care from Dr. Marques; tolerated plasmapheresis session earlier today without any issue or problems; has noted a decline in her urine output in association with swelling/edema in her lower extremities and hands; no other issues/events overnight or earlier this AM. Exam Narrative: General: WD/WN female in NAD Heart: normal S1 and S2; no rub Lungs: clear to auscultation Abdomen: soft, nontender, nondistended, positive bowel sounds Extremities: no cyanosis or clubbing; trace edema Skin: warm and dry Objective Data Vital Signs Vital Signs: Vital Signs Temp Pulse Resp BP Pulse Ox O2 Del Method 08/03/21 11:34 Room Air 08/03/21 10:11 89 08/03/21 09:30 151/53 H 08/03/21 09:00 143/52 H 08/03/21 08:40 153/63 H 08/03/21 09:30 36.4 C 95 18 08/03/21 09:00 36.4 C 78 18 08/03/21 08:40 36.3 C L 77 18 97 08/03/21 08:08 85 18 08/03/21 07:59 89 18 08/03/21 06:00 36.1 C L 66 16 121/56 L 96 08/03/21 02:57 95 CPAP 08/02/21 22:45
--- NOTE | 2021-08-03 12:28 | PM.PNNEP ---
Progress Note: A&P Assessment and Plan (1) SOLANGE (acute kidney injury): Code(s): N17.9 - Acute kidney failure, unspecified Status: Acute Assessment and Plan: this is secondary to BIOPSY PROVEN cast nephropathy however, she also had signifiant scarring present (~ 70%) so there may be an element of disease progression as well with rising creatinine in association with declining urine output and high degree of light chains, started on plasmapheresis and dialysis plasmaphresis on M/W/F hemodialysis on T/T/S she will need outpatient dialysis she may also need outpatient plasmapheresis as well (case management working on this) follow trend of labs (in between dialysis) and UOP to assess for potential renal recovery (2) Chronic kidney disease, stage IV (severe): Code(s): N18.4 - Chronic kidney disease, stage 4 (severe) Status: Chronic Assessment and Plan: baseline creatinine seems to run ~ 1.5 - 2.0mg/dl 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 suspect HTN and DM playing a role as well see #1 (3) Multiple myeloma: Code(s): C90.00 - Multiple myeloma not having achieved remission Status: Chronic Assessment and Plan: getting plasmapheresis stated on steroidds -- to start Velcade as well Hem/Onc following (4) Anemia: Code(s): D64.9 - Anemia, unspecified Status: Chronic Assessment and Plan: likely due to SOLANGE, CKD, and mutiple myeloma Epogen with HD follow H/H (5) Hypertension: Code(s): I10 - Essential (primary) hypertension Status: Chronic Assessment and Plan: reasonable control at this time follow trend of hemodynamics (6) Diabetes: Qualifiers: Diabetes mellitus type: type 2 Diabetes mellitus terminal make up operator insulin use: without snf use Diabetes mellitus complication status: without complication Qualified Code(s): E11.9 - Type 2 diabetes mellitus without complications Code(s): E11.9 - Type 2 diabetes mellitus without complications Status: Chronic Assessment and Plan: follow accucheks on Lantus and SSI Will continue to follow. Subjective Date/time seen: 08/03/21 12:28 Chart reviewed -- assuming care from Dr. Marques; tolerated plasmapheresis session earlier today without any issue or problems; has noted a decline in her urine output in association with swelling/edema in her lower extremities and hands; no other issues/events overnight or earlier this AM. Exam Narrative: General: WD/WN female in NAD Heart: normal S1 and S2; no rub Lungs: clear to auscultation Abdomen: soft, nontender, nondistended, positive bowel sounds Extremities: no cyanosis or clubbing; trace edema Skin: warm and dry Objective Data Vital Signs Vital Signs: Vital Signs Temp Pulse Resp BP Pulse Ox O2 Del Method 08/03/21 11:34 Room Air 08/03/21 10:11 89 08/03/21 09:30 151/53 H 08/03/21 09:00 143/52 H 08/03/21 08:40 153/63 H 08/03/21 09:30 36.4 C 95 18 08/03/21 09:00 36.4 C 78 18 08/03/21 08:40 36.3 C L 77 18 97 08/03/21 08:08 85 18 08/03/21 07:59 89 18 08/03/21 06:00 36.1 C L 66 16 121/56 L 96 08/03/21 02:57 95 CPAP 08/02/21 22:45 96 CPAP 08/02/21 22:00 36.4 C L 72 16 149/68 H 95 08/02/21 20:31 77 Intake/Output Intake/Output: Intake & Output 07/31/21 08/01/21 08/02/21 08/03/21 23:59 23:59 23:59 23:59 Intake Total 690 2174 1180 1900 Output Total 0119 258 9190 1175 Balance -610 1474 -1420 725 Meds/Results Medications: Active Medications Generic Name Dose Route Start Last Admin Trade Name Freq PRN Reason Stop Dose Admin Hydrocodone Bitart/Acetaminophen 1 tab 07/28/21 17:44 08/02/21 10:38 Hydrocodone/Acetaminophen (*Crx) 5-325 Mg Tablet PO 1 tab Q6H PRN Administration Pain Rated 4-6 Hydrocodone Bitart/Acetaminophen 1 ta
[2021-08-03] MEDS: FERROUS SULFATE 324 MG TABLET 648 MG PO (14:15)
[2021-08-03 15:08] LABS: Kappa\\Lambda Light Chains 0.01 (0.26-1.65)
--- NOTE | 2021-08-03 15:10 | PM.IMPN ---
Progress Note: A&P Assessment and Plan (1) Acute on chronic kidney failure: Code(s): N17.9 - Acute kidney failure, unspecified; N18.9 - Chronic kidney disease, unspecified Status: Acute Assessment and Plan: Suspect secondary to progressive multiple myeloma, biopsy showed multiple myeloma as etiology of renal failure, appreciate nephrology consultation Currently receiving plasmapheresis per Nephrology recommendations Getting hemodialysis tomorrow (2) Acute on chronic anemia: Code(s): D64.9 - Anemia, unspecified Status: Acute Assessment and Plan: Stable, defer Procrit administration to Nephrology (3) Multiple myeloma: Code(s): C90.00 - Multiple myeloma not having achieved remission Status: Chronic Assessment and Plan: holding her oral chemotherapy at this time, plan is to start Velcade on outpatient basis (4) Insulin dependent type 2 diabetes mellitus: Code(s): E11.9 - Type 2 diabetes mellitus without complications; Z79.4 - alf (current) use of insulin Status: Acute Assessment and Plan: Continue basal insulin. Initiate sliding scale insulin, Accu-Cheks, and hypoglycemic protocol. Controlled (5) Obstructive sleep apnea on CPAP: Code(s): G47.33 - Obstructive sleep apnea (adult) (pediatric); Z99.89 - Dependence on other enabling machines and devices Status: Acute Assessment and Plan: CPAP will be provided for the patient to use while hospitalized. (6) Hypertension: Code(s): I10 - Essential (primary) hypertension Status: Acute Assessment and Plan: Monitor blood pressure (7) Paroxysmal atrial fibrillation: Code(s): I48.0 - Paroxysmal atrial fibrillation Status: Acute Assessment and Plan: Currently sounds to be in a sinus rhythm. Subjective Date/time seen: 08/03/21 15:10 Interval history: Patient resting comfortably. No overnight events noted. No chest pain or shortness of breath. No nausea, vomiting or diarrhea. No fevers or chills. She had a plasmapheresis treatment today. Hemodialysis planned for tomorrow. Review of Systems Review of Systems: 12 point review of systems was assessed and was negative except as noted in the HPI Exam Narrative: General: Patient resting comfortably in bed, no acute distress HEENT: Atraumatic, normocephalic, mucous membranes moist CV: Regular rate and rhythm, S1, S2, no murmurs rubs or gallops noted Lungs: Clear to auscultation bilaterally, no rales or crackles noted, no wheezes, good air entry Abdomen: Soft, nontender, nondistended Extremities: Normal to inspection, some nonpitting lymphedema noted bilaterally Skin: No rashes noted, no lesions or wounds seen Psych: Euthymic, normal affect Neuro: Cranial nerves 2-12 grossly intact, strength 5/5 upper and lower extremities noted Objective Data Vital Signs Vital Signs: Vital Signs - 24 hr 08/02/21 20:31 08/02/21 22:00 08/02/21 22:45 Temperature 97.5 F L Pulse Rate 77 72 Respiratory Rate 16 Blood Pressure 149/68 H Pulse Oximetry 95 96 Oxygen Delivery CPAP 08/03/21 02:57 08/03/21 06:00 08/03/21 07:59 Temperature 96.9 F L Pulse Rate 66 89 Respiratory Rate 16 18 Blood Pressure 121/56 L Pulse Oximetry 95 96 Oxygen Delivery CPAP 08/03/21 08:08 08/03/21 08:40 08/03/21 09:00 Temperature 97.4 F L 97.6 F Pulse Rate 85 77 78 Respiratory Rate 18 18 18 Blood Pressure Pulse Oximetry 97 Oxygen Delivery 08/03/21 09:30 08/03/21 08:40 08/03/21 09:00 Temperature 97.6 F Pulse Rate 95 Respiratory Rate 18 Blood Pressure 153/63 H 143/52 H Pulse Oximetry Oxygen Delivery 08/03/21 09:30 08/03/21 10:11 08/03/21 11:34 Temperature Pulse Rate 89 Respiratory Rate Blood Pressure 151/53 H Pulse Oximetry Oxygen Delivery Room Air Intake/Output Intake/Output: Intake & Output 07/31/21
[2021-08-03] MEDS: OMEGA 3 POLYUNSAT FATTY ACIDS 1 GM CAP 2 GM PO (15:55)
[2021-08-03 16:59] LABS: Glucose Point of Care 232 mg/dl (65-105)
[2021-08-03] MEDS: INSULIN ASPART (*BKC) 100 UNITS/ML SUB-Q (17:04)
[2021-08-03] MEDS: INSULIN GLARGINE (LANTUS) 1,000 UNITS/10 ML VIAL 40 UNITS SUB-Q (21:43)
[2021-08-03] MEDS: HYDROcodone/acetaminophen (*CRX) 5-325 MG TABLET 1 TAB PO (21:44)
[2021-08-03] MEDS: PRIMIDONE 50 MG TABLET 100 MG PO (21:44)
[2021-08-03] MEDS: SERTRALINE HCL 50 MG TABLET PO (21:44)
[2021-08-03] MEDS: PREGABALIN (*CRX) 25 MG CAPSULE 75 MG PO (21:44)
[2021-08-03 21:49] LABS: Glucose Point of Care 147 mg/dl (65-105)
[2021-08-03] MEDS: ONDANSETRON INJ 4 MG/2 ML VIAL IV PUSH (21:59)
[2021-08-04] VITALS (20 sets, daily range): BP systolic 117–214; BP diastolic 63–150; PULSE 58–110; RESP 14–20; TEMP 36.2–37; O2SAT 96–98
[2021-08-04 06:15] LABS: Hematocrit 29.4 % (37.0-47.0); Hemoglobin 8.9 g/dL (12.0-15.0); Mean Corpuscular HGB Conc 30.3 g/dl (32-36); Mean Corpuscular Hemoglobin 29.5 pg (26-34); Mean Corpuscular Volume 97.4 fl (80-100); Mean Platelet Volume 11.9 fl (7.4-10.4); Platelet Count Result 73 k/mm3 (150-375); Red Blood Count 3.02 M/mm3 (4.2-5.4); Red Cell Distribution Width 15.5 % (11.5-14.5); White Blood Count 2.8 K/mm3 (4.5-10.0)
[2021-08-04 06:32] LABS: INR 1.3; Prothrombin Time 15.6 Seconds (11.1-14.7)
[2021-08-04] MEDS: UMECLIDINIUM BROMIDE 62.5 MCG ELLIPTA 1 PUFF INHALATION (07:59)
[2021-08-04] MEDS: FLUTICASONE/SALMETEROL 230-21 MCG INHALER 1 PUFF 2 PUFF INHALATION ×2 (08:00→20:37)
[2021-08-04 08:11] LABS: Glucose Point of Care 122 mg/dl (65-105)
[2021-08-04] MEDS: CYCLOBENZAPRINE HCL 10 MG TABLET PO ×2 (08:37→20:43)
[2021-08-04] MEDS: DOCUSATE SODIUM 100 MG CAPSULE PO (08:38)
[2021-08-04] MEDS: FENOFIBRATE,MICRONIZED 48 MG TABLET PO (08:38)
[2021-08-04] MEDS: MAGNESIUM OXIDE 400 MG TABLET PO (08:39)
[2021-08-04] MEDS: METOPROLOL TARTRATE 25 MG TABLET PO ×2 (08:39→20:43)
[2021-08-04] MEDS: calcitrioL 0.25 MCG CAPSULE PO (08:39)
[2021-08-04] MEDS: ISOSORBIDE MONONITRATE 30 MG TAB.ER.24H PO (08:40)
[2021-08-04] MEDS: PANTOPRAZOLE 40 MG TABLET PO (08:40)
[2021-08-04] MEDS: DEXAMETHASONE 4 MG TABLET 40 MG PO (08:40)
[2021-08-04] MEDS: amLODIPine BESYLATE 5 MG TABLET PO (08:40)
[2021-08-04] MEDS: PRIMIDONE 50 MG TABLET PO (08:41)
[2021-08-04] MEDS: PREGABALIN (*CRX) 25 MG CAPSULE PO (08:43)
--- NOTE | 2021-08-04 08:44 | PM.IMPN ---
Progress Note: A&P Assessment and Plan (1) Acute on chronic kidney failure: Code(s): N17.9 - Acute kidney failure, unspecified; N18.9 - Chronic kidney disease, unspecified Status: Acute Assessment and Plan: Suspect secondary to progressive multiple myeloma, biopsy showed multiple myeloma as etiology of renal failure, appreciate nephrology consultation Currently receiving plasmapheresis and hemodialysis, anticipate only needing hemodialysis at discharge (2) Acute on chronic anemia: Code(s): D64.9 - Anemia, unspecified Status: Acute Assessment and Plan: Stable, defer Procrit administration to Nephrology (3) Multiple myeloma: Code(s): C90.00 - Multiple myeloma not having achieved remission Status: Chronic Assessment and Plan: holding her oral chemotherapy at this time, plan is to start Velcade on outpatient basis (4) Insulin dependent type 2 diabetes mellitus: Code(s): E11.9 - Type 2 diabetes mellitus without complications; Z79.4 - USP (current) use of insulin Status: Acute Assessment and Plan: Continue basal insulin. Initiate sliding scale insulin, Accu-Cheks, and hypoglycemic protocol. Controlled (5) Obstructive sleep apnea on CPAP: Code(s): G47.33 - Obstructive sleep apnea (adult) (pediatric); Z99.89 - Dependence on other enabling machines and devices Status: Acute Assessment and Plan: CPAP will be provided for the patient to use while hospitalized. (6) Hypertension: Code(s): I10 - Essential (primary) hypertension Status: Acute Assessment and Plan: Monitor blood pressure (7) Paroxysmal atrial fibrillation: Code(s): I48.0 - Paroxysmal atrial fibrillation Status: Acute Assessment and Plan: Currently sounds to be in a sinus rhythm. Plan Patient requesting her monthly B12 shot Subjective Date/time seen: 08/04/21 08:44 Interval history: Patient up to chair eating breakfast. She is already ordered physical therapy is feeling much better today than yesterday. She had an episode of nausea yesterday, completely resolved without any intervention. No overnight events noted. No chest pain or shortness of breath. No nausea, vomiting or diarrhea. No fevers or chills. Review of Systems Review of Systems: 12 point review of systems was assessed and was negative except as noted in the HPI Exam Narrative: General: No acute distress, alert and oriented per baseline, sitting up to chair HEENT: Atraumatic, normocephalic, mucous membranes moist CV: Regular rate and rhythm, S1, S2, no murmurs rubs or gallops noted Lungs: Clear to auscultation bilaterally, no rales or crackles noted, no wheezes, good air entry Abdomen: Soft, nontender, nondistended Extremities: Normal to inspection, some nonpitting lymphedema noted bilaterally Skin: No rashes noted, no lesions or wounds seen Psych: Euthymic, normal affect Neuro: Cranial nerves 2-12 grossly intact, strength 5/5 upper and lower extremities noted Objective Data Vital Signs Vital Signs: Vital Signs - 24 hr 08/03/21 09:00 08/03/21 09:30 08/03/21 09:00 Temperature 97.6 F 97.6 F Pulse Rate 78 95 Respiratory Rate 18 18 Blood Pressure 143/52 H Pulse Oximetry Oxygen Delivery 08/03/21 09:30 08/03/21 10:11 08/03/21 11:34 Temperature Pulse Rate 89 Respiratory Rate Blood Pressure 151/53 H Pulse Oximetry Oxygen Delivery Room Air 08/03/21 14:00 08/03/21 19:26 08/03/21 21:44 Temperature 97.7 F Pulse Rate 80 88 74 Respiratory Rate 20 18 Blood Pressure 179/79 H Pulse Oximetry 95 Oxygen Delivery 08/03/21 21:51 08/03/21 22:33 08/04/21 04:00 Temperature 99.0 F Pulse Rate 90 Respiratory Rate 16 Blood Pressure 156/55 H Pulse Oximetry 96 97 97 Oxygen Delivery CPAP CPAP 08/04/21 05:25 08/04/21 08:02 08/04/21 08:39 Temperature 97.2 F L Pulse Rat
[2021-08-04 10:57] LABS: Anion Gap 10 mmol/L (8-16); Blood Urea Nitrogen 35 mg/dL (7-17); Calcium 8.5 mg/dL (8.4-10.2); Carbon Dioxide 22 mmol/L (22-30); Chloride 105 mmol/L (98-107); Estimated CRCL calculation 10 ml/min; Estimated Glomerular Filt Rate 6; Glucose 169 mg/dL (65-110); Potassium 4.9 mmol/L (3.4-5.0); Sodium 137 mmol/L (137-145)
[2021-08-04 11:25] LABS: Glucose Point of Care 202 mg/dl (65-105)
[2021-08-04] MEDS: INSULIN ASPART (*BKC) 100 UNITS/ML SUB-Q ×2 (12:15→17:45)
--- NOTE | 2021-08-04 14:07 | PM.PNNEP ---
Progress Note: A&P Assessment and Plan (1) SOLANGE (acute kidney injury): Code(s): N17.9 - Acute kidney failure, unspecified Status: Acute Assessment and Plan: this is secondary to BIOPSY PROVEN cast nephropathy however, she also had signifiant scarring present (~ 70%) so there may be an element of disease progression as well with rising creatinine in association with declining urine output and high degree of light chains, started on plasmapheresis and dialysis plasmaphresis on M/W/F hemodialysis on T/T/S - HD today she will need outpatient dialysis logistics of doing outpatient plasmapheresis, hemodialysis, and chemotherapy appears quite difficult to arrange tentative plan will likely do a few more sessions of plasmapheresis as inpatient and then discontinue on discharge follow trend of labs (in between dialysis) and UOP to assess for potential renal recovery (2) Chronic kidney disease, stage IV (severe): Code(s): N18.4 - Chronic kidney disease, stage 4 (severe) Status: Chronic Assessment and Plan: baseline creatinine seems to run ~ 1.5 - 2.0mg/dl 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 suspect HTN and DM playing a role as well see #1 (3) Multiple myeloma: Code(s): C90.00 - Multiple myeloma not having achieved remission Status: Chronic Assessment and Plan: getting plasmapheresis stated on steroidds -- to start Velcade as well Hem/Onc following (4) Anemia: Code(s): D64.9 - Anemia, unspecified Status: Chronic Assessment and Plan: likely due to SOLANGE, CKD, and mutiple myeloma Epogen with HD follow H/H (5) Hypertension: Code(s): I10 - Essential (primary) hypertension Status: Chronic Assessment and Plan: reasonable control at this time follow trend of hemodynamics (6) Diabetes: Qualifiers: Diabetes mellitus type: type 2 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 Subjective Date/time seen: 08/04/21 14:07 Tolerated dialysis treatment at the time of my visit (seen on HD at ~ 2:00pm); BP elevated at this time and given her swelling/edema, will try to remove more fluid to see it this stabilizes blood pressure; no issues/events overnight or earlier this AM. Exam Narrative: General: WD/WN female in NAD Heart: normal S1 and S2; no rub Lungs: clear to auscultation Abdomen: soft, nontender, nondistended, positive bowel sounds Extremities: no cyanosis or clubbing; trace - 1+ edema Skin: warm and intact Objective Data Vital Signs Vital Signs: Vital Signs Temp Pulse Resp BP Pulse Ox O2 Del Method 08/04/21 08:39 79 08/04/21 08:02 84 18 08/04/21 05:25 36.2 C L 58 L 16 117/63 98 08/04/21 04:00 97 CPAP 08/03/21 22:33 97 CPAP 08/03/21 21:51 37.2 C 90 16 156/55 H 96 08/03/21 21:44 74 08/03/21 19:26 88 18 Intake/Output Intake/Output: Intake & Output 08/01/21 08/02/21 08/03/21 08/04/21 23:59 23:59 23:59 23:59 Intake Total 2174 1180 1900 1770 Output Total 700 2600 1175 1000 Balance 1474 -1420 725 770 Meds/Results Medications: Active Medications Generic Name Dose Route Start Last Admin Trade Name Freq PRN Reason Stop Dose Admin Hydrocodone Bitart/Acetaminophen 1 tab 07/28/21 17:44 08/04/21 14:12 Hydrocodone/Acetaminophen (*Crx) 5-325 Mg Tablet PO 1 tab Q6H PRN Administration Pain Rated 4-6 Hydrocodone Bitart/Acetaminophen 1 tab 07/28/21 17:56 07/28/21 18:06 Hydrocodone/Acetaminophen (*Crx) 7.5-325 Mg Tablet PO 1 tab Q6H [place]
--- NOTE | 2021-08-04 14:07 | P.PNNP_ITS ---
Progress Note: A&P Assessment and Plan (1) SOLANGE (acute kidney injury): Code(s): N17.9 - Acute kidney failure, unspecified Status: Acute Assessment and Plan: * this is secondary to BIOPSY PROVEN cast nephropathy * however, she also had signifiant scarring present (~ 70%) so there may be an element of disease progression as well * with rising creatinine in association with declining urine output and high degree of light chains, started on plasmapheresis and dialysis * plasmaphresis on M/W/F * hemodialysis on T/T/S - HD today * she will need outpatient dialysis * logistics of doing outpatient plasmapheresis, hemodialysis, and chemotherapy appears quite difficult to arrange * tentative plan will likely do a few more sessions of plasmapheresis as inpatient and then discontinue on discharge * follow trend of labs (in between dialysis) and UOP to assess for potential renal recovery (2) Chronic kidney disease, stage IV (severe): Code(s): N18.4 - Chronic kidney disease, stage 4 (severe) Status: Chronic Assessment and Plan: * baseline creatinine seems to run ~ 1.5 - 2.0mg/dl * 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 * suspect HTN and DM playing a role as well * see #1 (3) Multiple myeloma: Code(s): C90.00 - Multiple myeloma not having achieved remission Status: Chronic Assessment and Plan: * getting plasmapheresis * stated on steroidds -- to start Velcade as well * Hem/Onc following (4) Anemia: Code(s): D64.9 - Anemia, unspecified Status: Chronic Assessment and Plan: * likely due to SOLANGE, CKD, and mutiple myeloma * Epogen with HD * follow H/H (5) Hypertension: Code(s): I10 - Essential (primary) hypertension Status: Chronic Assessment and Plan: * reasonable control at this time * follow trend of hemodynamics (6) Diabetes: Qualifiers: Diabetes mellitus type: type 2 Diabetes mellitus terminal gauger insulin use: without chcf use Diabetes mellitus complication status: without complication Qualified Code(s): E11.9 - Type 2 diabetes mellitus without complications Code(s): E11.9 - Type 2 diabetes mellitus without complications Status: Chronic Assessment and Plan: * follow accucheks * on Lantus and SSI Will continue to follow. Subjective Date/time seen: 08/04/21 14:07 Tolerated dialysis treatment at the time of my visit (seen on HD at ~ 2:00pm); BP elevated at this time and given her swelling/edema, will try to remove more fluid to see it this stabilizes blood pressure; no issues/events overnight or earlier this AM. Exam Narrative: General: WD/WN female in NAD Heart: normal S1 and S2; no rub Lungs: clear to auscultation Abdomen: soft, nontender, nondistended, positive bowel sounds Extremities: no cyanosis or clubbing; trace - 1+ edema Skin: warm and intact Objective Data Vital Signs Vital Signs: Vital Signs Temp Pulse Resp BP Pulse Ox O2 Del Method 08/04/21 08:39 79 08/04/21 08:02 84 18 08/04/21 05:25 36.2 C L 58 L 16 117/63 98 08/04/21 04:00 97 CPAP 08/03/21 22:33 97 CPAP 08/03/21 21:51 37.2 C 90 16 156/55 H 96 08/03/21 21:44 74 08/03/21 19:26 88 18 Intake/Output Intake/Outpu
[2021-08-04] MEDS: FERROUS SULFATE 324 MG TABLET 648 MG PO (14:12)
[2021-08-04] MEDS: HYDROcodone/acetaminophen (*CRX) 5-325 MG TABLET 1 TAB PO (14:12)
[2021-08-04 16:46] LABS: Glucose Point of Care 212 mg/dl (65-105)
[2021-08-04] MEDS: OMEGA 3 POLYUNSAT FATTY ACIDS 1 GM CAP 2 GM PO (17:11)
[2021-08-04 19:41] LABS: Glucose Point of Care 219 mg/dl (65-105)
[2021-08-04] MEDS: PREGABALIN (*CRX) 25 MG CAPSULE 75 MG PO (20:41)
[2021-08-04] MEDS: PRIMIDONE 50 MG TABLET 100 MG PO (20:43)
[2021-08-04] MEDS: SERTRALINE HCL 50 MG TABLET PO (20:44)
[2021-08-04] MEDS: INSULIN GLARGINE (LANTUS) 1,000 UNITS/10 ML VIAL 40 UNITS SUB-Q (20:48)
[2021-08-04 21:30] LABS: Glucose Point of Care 260 mg/dl (65-105)
[2021-08-05] VITALS (9 sets, daily range): BP systolic 143–148; BP diastolic 44–64; PULSE 64–79; RESP 15–20; TEMP 36.6–36.9; O2SAT 95–97
[2021-08-05] MEDS: OMEGA 3 POLYUNSAT FATTY ACIDS 1 GM CAP 2 GM PO ×2 (06:04→16:49)
[2021-08-05 06:23] LABS: Anion Gap 10 mmol/L (8-16); Blood Urea Nitrogen 25 mg/dL (7-17); Calcium 8.8 mg/dL (8.4-10.2); Carbon Dioxide 26 mmol/L (22-30); Chloride 102 mmol/L (98-107); Estimated CRCL calculation 14 ml/min; Estimated Glomerular Filt Rate 9; Glucose 279 mg/dL (65-110); Sodium 138 mmol/L (137-145)
[2021-08-05 06:25] LABS: INR 1.2; Prothrombin Time 14.5 Seconds (11.1-14.7)
[2021-08-05 06:26] LABS: Hemoglobin 9.3 g/dL (12.0-15.0); Mean Corpuscular Hemoglobin 29.8 pg (26-34); Mean Corpuscular Volume 96.2 fl (80-100); Mean Platelet Volume 11.7 fl (7.4-10.4); Platelet Count Result 73 k/mm3 (150-375); Red Blood Count 3.12 M/mm3 (4.2-5.4); Red Cell Distribution Width 15.5 % (11.5-14.5); White Blood Count 4.5 K/mm3 (4.5-10.0)
[2021-08-05] MEDS: FLUTICASONE/SALMETEROL 230-21 MCG INHALER 1 PUFF 2 PUFF INHALATION ×2 (07:22→20:12)
[2021-08-05 08:02] LABS: Glucose Point of Care 248 mg/dl (65-105)
[2021-08-05] MEDS: UMECLIDINIUM BROMIDE 62.5 MCG ELLIPTA 1 PUFF INHALATION (08:50)
[2021-08-05] MEDS: INSULIN ASPART (*BKC) 100 UNITS/ML SUB-Q ×3 (08:52→16:52)
[2021-08-05] MEDS: polyethylene glycoL 3350 17 GM POWD.PACK PO (08:56)
[2021-08-05] MEDS: METOPROLOL TARTRATE 25 MG TABLET PO ×2 (08:56→21:17)
[2021-08-05] MEDS: PREGABALIN (*CRX) 25 MG CAPSULE PO (08:56)
[2021-08-05] MEDS: PRIMIDONE 50 MG TABLET PO (08:57)
[2021-08-05] MEDS: MAGNESIUM OXIDE 400 MG TABLET PO (08:57)
[2021-08-05] MEDS: amLODIPine BESYLATE 5 MG TABLET PO (08:57)
[2021-08-05] MEDS: DOCUSATE SODIUM 100 MG CAPSULE PO ×2 (08:57→16:49)
[2021-08-05] MEDS: FENOFIBRATE,MICRONIZED 48 MG TABLET PO (08:57)
[2021-08-05] MEDS: ISOSORBIDE MONONITRATE 30 MG TAB.ER.24H PO (08:57)
[2021-08-05] MEDS: calcitrioL 0.25 MCG CAPSULE PO (08:57)
[2021-08-05] MEDS: PANTOPRAZOLE 40 MG TABLET PO (08:57)
[2021-08-05] MEDS: CYCLOBENZAPRINE HCL 10 MG TABLET PO ×2 (08:57→21:17)
[2021-08-05] MEDS: MONTELUKAST SODIUM 10 MG TABLET PO (08:58)
[2021-08-05] MEDS: LORATADINE 10 MG TABLET PO (08:58)
[2021-08-05] MEDS: HYDROcodone/acetaminophen (*CRX) 7.5-325 MG TABLET 1 TAB PO (10:53)
[2021-08-05 11:44] LABS: Glucose Point of Care 210 mg/dl (65-105)
[2021-08-05] MEDS: CYANOCOBALAMIN INJ 1,000 MCG/ML VIAL 1000 MCG IM (11:53)
--- NOTE | 2021-08-05 12:24 | P.PNNP_ITS ---
Progress Note: A&P Assessment and Plan (1) SOLANGE (acute kidney injury): Code(s): N17.9 - Acute kidney failure, unspecified Status: Acute Assessment and Plan: * this is secondary to BIOPSY PROVEN cast nephropathy * however, she also had signifiant scarring present (~ 70%) so there may be an element of disease progression as well * with rising creatinine in association with declining urine output and high degree of light chains, started on plasmapheresis and dialysis * plasmaphresis on M//F * hemodialysis on T/T/S - HD yesterday * she will need outpatient dialysis * logistics of doing outpatient plasmapheresis, hemodialysis, and chemotherapy appears quite difficult to arrange * tentative plan is to do a few more sessions of plasmapheresis as inpatient and then discontinue on discharge * follow trend of labs (in between dialysis) and UOP to assess for potential renal recovery (2) Chronic kidney disease, stage IV (severe): Code(s): N18.4 - Chronic kidney disease, stage 4 (severe) Status: Chronic Assessment and Plan: * baseline creatinine seems to run ~ 1.5 - 2.0mg/dl * 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 * suspect HTN and DM playing a role as well * see #1 (3) Multiple myeloma: Code(s): C90.00 - Multiple myeloma not having achieved remission Status: Chronic Assessment and Plan: * getting plasmapheresis * stated on steroids -- to start Velcade as well * Hem/Onc following (4) Anemia: Code(s): D64.9 - Anemia, unspecified Status: Chronic Assessment and Plan: * likely due to SOLANGE, CKD, and mutiple myeloma * Epogen with HD * follow H/H (5) Hypertension: Code(s): I10 - Essential (primary) hypertension Status: Chronic Assessment and Plan: * reasonable control at this time * follow trend of hemodynamics (6) Diabetes: Qualifiers: Diabetes mellitus type: type 2 Diabetes mellitus mcc insulin use: without superintendent terminal use Diabetes mellitus complication status: without complication Qualified Code(s): E11.9 - Type 2 diabetes mellitus without complications Code(s): E11.9 - Type 2 diabetes mellitus without complications Status: Chronic Assessment and Plan: * follow accucheks * on Lantus and SSI Will continue to follow. Subjective Date/time seen: 08/05/21 12:24 Tolerated dialysis treatment yesterday without any issues or problems; blood pressure improved with more aggressive ultrafiltration with HD yesterday; no other acute issues/problems reported at this time; no events overnight or earlier this AM; feels reasonably well. Exam Narrative: General: WD/WN female in NAD Heart: normal S1 and S2; no rub Lungs: clear to auscultation Abdomen: soft, nontender, nondistended, positive bowel sounds Extremities: no cyanosis or clubbing; trace edema Skin: no rash Objective Data Vital Signs Vital Signs: Vital Signs Temp Pulse Resp BP Pulse Ox O2 Del Method FiO2 08/05/21 08:45 Room Air 08/05/21 08:56 72 08/05/21 08:52 75 15 08/05/21 07:25 79 16 08/05/21 06:00 36.7 C 64 16 144/44 H 95 08/04/21 20:00 81 16 96 CPAP 21 08/04/21 23:24 96 CPAP 08/04/21 22:00 36.2 C L 81 16 141/66 H 96 08/04/21 20:4
--- NOTE | 2021-08-05 12:24 | PM.PNNEP ---
Progress Note: A&P Assessment and Plan (1) SOLANGE (acute kidney injury): Code(s): N17.9 - Acute kidney failure, unspecified Status: Acute Assessment and Plan: this is secondary to BIOPSY PROVEN cast nephropathy however, she also had signifiant scarring present (~ 70%) so there may be an element of disease progression as well with rising creatinine in association with declining urine output and high degree of light chains, started on plasmapheresis and dialysis plasmaphresis on M/W/F hemodialysis on T/T/S - HD yesterday she will need outpatient dialysis logistics of doing outpatient plasmapheresis, hemodialysis, and chemotherapy appears quite difficult to arrange tentative plan is to do a few more sessions of plasmapheresis as inpatient and then discontinue on discharge follow trend of labs (in between dialysis) and UOP to assess for potential renal recovery (2) Chronic kidney disease, stage IV (severe): Code(s): N18.4 - Chronic kidney disease, stage 4 (severe) Status: Chronic Assessment and Plan: baseline creatinine seems to run ~ 1.5 - 2.0mg/dl 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 suspect HTN and DM playing a role as well see #1 (3) Multiple myeloma: Code(s): C90.00 - Multiple myeloma not having achieved remission Status: Chronic Assessment and Plan: getting plasmapheresis stated on steroids -- to start Velcade as well Hem/Onc following (4) Anemia: Code(s): D64.9 - Anemia, unspecified Status: Chronic Assessment and Plan: likely due to SOLANGE, CKD, and mutiple myeloma Epogen with HD follow H/H (5) Hypertension: Code(s): I10 - Essential (primary) hypertension Status: Chronic Assessment and Plan: reasonable control at this time follow trend of hemodynamics (6) Diabetes: Qualifiers: Diabetes mellitus type: type 2 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 Subjective Date/time seen: 08/05/21 12:24 Tolerated dialysis treatment yesterday without any issues or problems; blood pressure improved with more aggressive ultrafiltration with HD yesterday; no other acute issues/problems reported at this time; no events overnight or earlier this AM; feels reasonably well. Exam Narrative: General: WD/WN female in NAD Heart: normal S1 and S2; no rub Lungs: clear to auscultation Abdomen: soft, nontender, nondistended, positive bowel sounds Extremities: no cyanosis or clubbing; trace edema Skin: no rash Objective Data Vital Signs Vital Signs: Vital Signs Temp Pulse Resp BP Pulse Ox O2 Del Method FiO2 08/05/21 08:45 Room Air 08/05/21 08:56 72 08/05/21 08:52 75 15 08/05/21 07:25 79 16 08/05/21 06:00 36.7 C 64 16 144/44 H 95 08/04/21 20:00 81 16 96 CPAP 21 08/04/21 23:24 96 CPAP 08/04/21 22:00 36.2 C L 81 16 141/66 H 96 08/04/21 20:43 86 08/04/21 20:38 86 14 08/04/21 17:10 110 H 149/82 H 08/04/21 16:45 99 176/68 H 08/04/21 17:20 36.6 C 87 18 162/74 H 08/04/21 17:08 36.6 C 75 20 157/101 H Intake/Output Intake/Output: Intake & Output 08/02/21 08/03/21 08/04/21 08/05/21 23:59 23:59 23:59 23:59 Intake Total 1180 1900 2210 1390 Output Total 2600 1175 4600 600 Balance -1420 725 -2390 790 Meds/Results Medications: Active Medications Generic Name Dose Route Start Last Admin Trade Name Freq PRN Reason Stop Dose Admin Hydrocodone Bitart/Acetaminophen 1 tab 07/28/21 17:44 08/04/21 14:12 Hyd
--- NOTE | 2021-08-05 14:11 | PM.IMPN ---
Progress Note: A&P Assessment and Plan (1) Acute on chronic kidney failure: Code(s): N17.9 - Acute kidney failure, unspecified; N18.9 - Chronic kidney disease, unspecified Status: Acute Assessment and Plan: Suspect secondary to progressive multiple myeloma, biopsy showed multiple myeloma as etiology of renal failure, appreciate nephrology consultation Currently receiving plasmapheresis and hemodialysis, anticipate only needing hemodialysis at discharge Status post 3 day course of Decadron per Oncology (2) Acute on chronic anemia: Code(s): D64.9 - Anemia, unspecified Status: Acute Assessment and Plan: Stable, defer Procrit administration to Nephrology (3) Multiple myeloma: Code(s): C90.00 - Multiple myeloma not having achieved remission Status: Chronic Assessment and Plan: holding her oral chemotherapy at this time, plan is to start Velcade on outpatient basis (4) Insulin dependent type 2 diabetes mellitus: Code(s): E11.9 - Type 2 diabetes mellitus without complications; Z79.4 - superintendent terminal (current) use of insulin Status: Acute Assessment and Plan: Continue basal insulin. Initiate sliding scale insulin, Accu-Cheks, and hypoglycemic protocol. Controlled (5) Obstructive sleep apnea on CPAP: Code(s): G47.33 - Obstructive sleep apnea (adult) (pediatric); Z99.89 - Dependence on other enabling machines and devices Status: Acute Assessment and Plan: CPAP will be provided for the patient to use while hospitalized. (6) Hypertension: Code(s): I10 - Essential (primary) hypertension Status: Chronic Assessment and Plan: Monitor blood pressure (7) Paroxysmal atrial fibrillation: Code(s): I48.0 - Paroxysmal atrial fibrillation Status: Acute Assessment and Plan: Currently sounds to be in a sinus rhythm. Plan Patient requesting her monthly B12 shot, ordered for today Subjective Date/time seen: 08/05/21 14:11 Interval history: Patient resting comfortably, somewhat anxious about what was going to happen when she gets discharged. She is concerned that she is going to be on plasmapheresis and hemodialysis every day for ever. No overnight events noted. No chest pain or shortness of breath. No nausea, vomiting or diarrhea. No fevers or chills. Review of Systems Review of Systems: 12 point review of systems was assessed and was negative except as noted in the HPI Exam Narrative: General: No acute distress, alert and oriented per baseline HEENT: Atraumatic, normocephalic, mucous membranes moist CV: Regular rate and rhythm, S1, S2 no murmurs rubs or gallops noted Lungs: Clear to auscultation bilaterally, no rales or crackles noted, no wheezes, good air entry Abdomen: Soft, nontender, nondistended Extremities: Normal to inspection Skin: No rashes noted, no lesions or wounds seen Psych: Euthymic, normal affect Neuro: Cranial nerves 2-12 grossly intact, strength +5/5 upper and lower extremities bilaterally Objective Data Vital Signs Vital Signs: Vital Signs - 24 hr 08/04/21 17:08 08/04/21 17:20 08/04/21 14:15 Temperature 98 F 97.8 F Pulse Rate 75 87 71 Respiratory Rate 20 18 Blood Pressure 157/101 H 162/74 H 171/91 H Pulse Oximetry Oxygen Delivery Fraction of Inspired Oxygen 08/04/21 14:45 08/04/21 15:15 08/04/21 15:45 Temperature Pulse Rate 78 88 70 Respiratory Rate Blood Pressure 214/150 H 197/127 H 177/83 H Pulse Oximetry Oxygen Delivery Fraction of Inspired Oxygen 08/04/21 16:15 08/04/21 16:45 08/04/21 17:10 Temperature Pulse Rate 73 99 110 H Respiratory Rate Blood Pressure 188/67 H 176/68 H 149/82 H Pulse Oximetry Oxygen Delivery Fraction of Inspired Oxygen 08/04/21 20:38 08/04/21 20:43 08/04/21 22:00 Temperature 97.2 F L Pulse Rate 86 86 81 Respiratory Rate 14 16 Blood Pressure 141/6
[2021-08-05] MEDS: FERROUS SULFATE 324 MG TABLET 648 MG PO (15:15)
[2021-08-05 16:48] LABS: Glucose Point of Care 254 mg/dl (65-105)
[2021-08-05 20:40] LABS: Glucose Point of Care 237 mg/dl (65-105)
[2021-08-05] MEDS: SERTRALINE HCL 50 MG TABLET PO (21:00)
[2021-08-05] MEDS: PREGABALIN (*CRX) 25 MG CAPSULE 75 MG PO (21:00)
[2021-08-05] MEDS: traMADol HCL (*CRX) 25 MG TABLET PO (21:15)
[2021-08-05] MEDS: PRIMIDONE 50 MG TABLET 100 MG PO (21:16)
[2021-08-05] MEDS: INSULIN GLARGINE (LANTUS) 1,000 UNITS/10 ML VIAL 40 UNITS SUB-Q (21:18)
[2021-08-06] VITALS (13 sets, daily range): BP systolic 137–153; BP diastolic 50–75; PULSE 65–95; RESP 18–20; TEMP 36.3–36.7; O2SAT 95–99
[2021-08-06] MEDS: OMEGA 3 POLYUNSAT FATTY ACIDS 1 GM CAP 2 GM PO ×2 (06:08→16:58)
[2021-08-06 06:20] LABS: Hematocrit 32.7 % (37.0-47.0); Immature Platelet Fraction Pct 8.2 % (0.9-11.2); Mean Corpuscular HGB Conc 30.6 g/dl (32-36); Mean Corpuscular Hemoglobin 29.2 pg (26-34); Mean Corpuscular Volume 95.6 fl (80-100); Mean Platelet Volume 11.8 fl (7.4-10.4); Platelet Count Result 74 k/mm3 (150-375); Red Blood Count 3.42 M/mm3 (4.2-5.4); Red Cell Distribution Width 15.9 % (11.5-14.5); White Blood Count 5.3 K/mm3 (4.5-10.0)
[2021-08-06 06:32] LABS: Anion Gap 11 mmol/L (8-16); Blood Urea Nitrogen 34 mg/dL (7-17); Calcium 9.2 mg/dL (8.4-10.2); Carbon Dioxide 26 mmol/L (22-30); Chloride 103 mmol/L (98-107); Estimated CRCL calculation 10 ml/min; Estimated Glomerular Filt Rate 7; Glucose 100 mg/dL (65-110); INR 1.2; Potassium 4.3 mmol/L (3.4-5.0); Prothrombin Time 14.4 Seconds (11.1-14.7); Sodium 140 mmol/L (137-145)
[2021-08-06 08:09] LABS: Glucose Point of Care 105 mg/dl (65-105)
[2021-08-06] MEDS: CALCIUM GLUC 2,000 MG/NS 100ML 2,000 MG/100 ML BAG 100 MG IVPB (08:30)
[2021-08-06] MEDS: SODIUM CHLORIDE 0.9% IV 1,000 ML 999 ML IV CONT (08:30)
--- NOTE | 2021-08-06 08:53 | PCPTNOTE ---
The patient treatment was not able to be completed at this time due to receiving plasmapheresis. Will plan to continue treatment per plan of care.
[2021-08-06] MEDS: UMECLIDINIUM BROMIDE 62.5 MCG ELLIPTA 1 PUFF INHALATION (08:59)
[2021-08-06] MEDS: FLUTICASONE/SALMETEROL 230-21 MCG INHALER 1 PUFF 2 PUFF INHALATION ×2 (09:01→20:43)
[2021-08-06] MEDS: METOPROLOL TARTRATE 25 MG TABLET PO ×2 (10:00→20:58)
[2021-08-06] MEDS: PRIMIDONE 50 MG TABLET PO (10:02)
[2021-08-06] MEDS: CYCLOBENZAPRINE HCL 10 MG TABLET PO ×2 (10:02→20:58)
[2021-08-06] MEDS: PANTOPRAZOLE 40 MG TABLET PO (10:02)
[2021-08-06] MEDS: FENOFIBRATE,MICRONIZED 48 MG TABLET PO (10:03)
[2021-08-06] MEDS: DOCUSATE SODIUM 100 MG CAPSULE PO (10:03)
[2021-08-06] MEDS: amLODIPine BESYLATE 5 MG TABLET PO (10:03)
[2021-08-06] MEDS: ISOSORBIDE MONONITRATE 30 MG TAB.ER.24H PO (10:04)
[2021-08-06] MEDS: MAGNESIUM OXIDE 400 MG TABLET PO (10:04)
[2021-08-06] MEDS: calcitrioL 0.25 MCG CAPSULE PO (10:05)
[2021-08-06] MEDS: PREGABALIN (*CRX) 25 MG CAPSULE PO (10:08)
--- NOTE | 2021-08-06 10:21 | PC.NURSE ---
[facility] RM# [id number] today for scheduled TPE #8 PT: Jaimie Nix DR: Saad Marques MD DX: MM Kidney PROCEDURE: TPE ORDERS: 3000mL ALBUMIN 5% LABS: verified ACCESS: R - SubClavian Tip @ [facility] [place] Performed well; brisk blood return, flushes without resistance BLUE: RETURN RED: DRAW Accessed under sterile/aseptic technique De-accessed under the same technique. Flushed with NS, Locked with ACDA and capped per protocol. ASSESSMENT: A&O x 4 with memory difficulties improving VS stable throughout Awake for entire treatment TIMES Start 0830 Stop 0940 VOLUMES Total Inlet Processed: 6182 Total Volume In: 3329 Plasma Removed: 3321 Fluid Balance: +8 TREATMENT PLAN: Per Nephrology Consult Dr Barba note 08-05-21, TPE will discontinue after discharge. Next TPE planned for 08-08-21 here as inpatient. Kidney Bx revealed Myeloma. Dr Finch plans to start Velcade as outpatient. Light Chains numbers still pending.
[2021-08-06 11:36] LABS: Glucose Point of Care 136 mg/dl (65-105)
--- NOTE | 2021-08-06 12:43 | PCNFU ---
Nutrition Follow-Up Complete: Inadequate oral intake related to decreased appetite as evidenced by oral intake of around 25% of meals. Goal: Eating 75% or more of meals Pt. has met goal, continue with current goal at this time. Pt current nutrition is Diabetic Carb Consistent Diet Last recorded weight is 120.7 kg, stable. Bowel Motility: +BM reported 08/06 Labs Reviewed: Hgb 10.0, Hct 32.7, BUN 34, Cr 6.20 Meds Noted: Albumin, Norvasc, Calcitriol, Flexeril, Colace, Fenofibrate, Fish Oil, Imdur, Mag-Ox, Lopressor, Protonix, Lyrica, Myosline, Umeclidinium [place] Skin: Right upper chest scab Additional Notes: Pt. to have plasmapheresis today (08/06/21). Current diet is Diabetic Carb Consistent with reported intake of 100% x5. Lu Mcrae discharged on 07/31/21 due to pt. not wanting to drink. Appetite and intake appears to be improving. Report of pt. to have hemodialysis set up at time of discharge. Agree with current diet orders. Will continue to follow. Monitor changes in wt, oral intake % of meal, and labs every 7 days.
--- NOTE | 2021-08-06 12:46 | WPDONCPN ---
Progress Note: A/P - Additional Plan Multiple myeloma. Status post kidney biopsy that showed myeloma kidney. Patient completed 3 dose of high-dose dexamethasone treatment on August 04. Creatinine remains elevated but stable. She is also on hemodialysis. I plan to start her on Velcade on a weekly basis in the office and dexamethasone 40 mg on a weekly basis as well. Hopefully she can be discharged home soon to start Velcade which will help her kidney function and and light chain myeloma quickly. Labs noted. Lambda light chain remains elevated. She is going to have plasmapheresis again today. Anemia secondary to chronic kidney disease. Patient is on iron and Procrit injection. Hemoglobin stable. Acute renal failure. Patient is on hemodialysis. - Time Spent With Patient Total time spent is greater than 50% in coordination of care (as documented) at patient's floor/unit and/or counseling patient: 15 - 25 minutes Subjective Interval history: Multiple myeloma Acute renal failure Review of Systems - Review of Systems Patient is sitting in the chair and feeling better. She has some tiredness and fatigue. Denies any bleeding including melena hematochezia. Also some shaking and upper extremities. No other new complaints. - Neurologic Reports system reviewed and no additional complaints, except as documented, Reports hearing normal, Reports numbness, Reports weakness, Denies abnormal speech, Denies abnormal gait, Denies confusion, Denies headache(s), Denies other visual disturbances Exam Vital signs: Maryann Bacon. Assessment of coma and impaired consciousness. A practical scale. Lancet 1974; 2:81-4. Narrative: Lungs are clear to auscultation bilaterally Cardiovascular regular rate rhythm no murmurs Abdomen soft nontender nondistended bowel sounds are positive Extremities no edema PN: Objective Data - Labs CBC & Chem 7: 08/06/21 05:31 08/06/21 05:31 Labs: Laboratory Results - last 24 hr 08/05/21 08/05/21 08/06/21 16:39 20:03 05:31 WBC RBC Hgb Hct MCV MCH MCHC RDW Plt Count MPV % Immature Plt Fraction PT 14.4 INR 1.2 Sodium Potassium Chloride Carbon Dioxide Anion Gap BUN Creatinine Estim Creat Clear Calc Estimated GFR Glucose POC Capillary Glucose 254 H 237 H Calcium 08/06/21 08/06/21 08/06/21 05:31 05:31 08:06 WBC 5.3 RBC 3.42 L Hgb 10.0 L Hct 32.7 L MCV 95.6 MCH 29.2 MCHC 30.6 L RDW 15.9 H Plt Count 74 L MPV 11.8 H % Immature Plt Fraction 8.2 PT INR Sodium 140 Potassium 4.3 Chloride 103 Carbon Dioxide 26 Anion Gap 11 BUN 34 H Creatinine 6.20 H Estim Creat Clear Calc 10 Estimated GFR 7 L Glucose 100 POC Capillary Glucose 105 Calcium 9.2 08/06/21 11:24 WBC RBC Hgb Hct MCV MCH MCHC RDW Plt Count MPV % Immature Plt Fraction PT INR Sodium Potassium Chloride Carbon Dioxide Anion Gap BUN Creatinine Estim Creat Clear Calc Estimated GFR Glucose POC Capillary Glucose 136 H Calcium
[2021-08-06] MEDS: FERROUS SULFATE 324 MG TABLET 648 MG PO (13:54)
[2021-08-06] MEDS: traMADol HCL (*CRX) 25 MG TABLET PO (14:31)
--- NOTE | 2021-08-06 15:11 | P.PNNP_ITS ---
Progress Note: A&P Assessment and Plan (1) SOLANGE (acute kidney injury): Code(s): N17.9 - Acute kidney failure, unspecified Status: Acute Assessment and Plan: * this is secondary to BIOPSY PROVEN cast nephropathy * however, she also had signifiant scarring present (~ 70%) so there may be an element of disease progression as well * with rising creatinine in association with declining urine output and high degree of light chains, started on plasmapheresis and dialysis * plasmaphresis on // * hemodialysis on T/T/S - HD tomorrow * she will need outpatient dialysis * logistics of doing outpatient plasmapheresis, hemodialysis, and chemotherapy appears quite difficult to arrange * tentative plan is to do plasmapheresis today and Friday as an inpatient and then discontinue * follow trend of labs (in between dialysis) and UOP to assess for potential renal recovery (2) Chronic kidney disease, stage IV (severe): Code(s): N18.4 - Chronic kidney disease, stage 4 (severe) Status: Chronic Assessment and Plan: * baseline creatinine seems to run ~ 1.5 - 2.0mg/dl * 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 * suspect HTN and DM playing a role as well * see #1 (3) Multiple myeloma: Code(s): C90.00 - Multiple myeloma not having achieved remission Status: Chronic Assessment and Plan: * getting plasmapheresis * stated on steroids -- to start Velcade as well * Hem/Onc following (4) Anemia: Code(s): D64.9 - Anemia, unspecified Status: Chronic Assessment and Plan: * likely due to SOLANGE, CKD, and mutiple myeloma * Epogen with HD * follow H/H (5) Hypertension: Code(s): I10 - Essential (primary) hypertension Status: Chronic Assessment and Plan: * reasonable control at this time * follow trend of hemodynamics (6) Diabetes: Qualifiers: Diabetes mellitus type: type 2 Diabetes mellitus [facility] insulin use: without petroleum terminal plant operator use Diabetes mellitus complication status: without complication Qualified Code(s): E11.9 - Type 2 diabetes mellitus without complications Code(s): E11.9 - Type 2 diabetes mellitus without complications Status: Chronic Assessment and Plan: * follow accucheks * on Lantus and SSI Would not be opposed to discharge after last plasmapheresis session on Friday (08/08/21) assuming she is medically stable and outpatient dialysis unit/schedule is finalized. Will continue to follow. Subjective Date/time seen: 08/06/21 15:11 Tolerated plasmapheresis treatment today without any issue or problems; noted rise in BUN and creatinine in between dialysis treatments but continues to make reasonable urine output; no apparent distress noted on my visit; no issues /events overnight or earlier this morning. Exam 2 Narrative: General: WD/WN female in NAD Heart: normal S1 and S2; no rub Lungs: clear to auscultation Abdomen: soft, nontender, nondistended, positive bowel sounds Extremities: no cyanosis or clubbing; trace edema Skin: no nodules Objective Data Vital Signs Vital Signs: Vital Signs Temp Pulse Resp BP Pulse Ox O2 Del Method FiO2 08/06/21 10:09 18 96 Room Air 08/06/21 10:00 74 08/06/21 09:01 74 18 08/06/21 10:12 36.3 C L 78 18 08/06/21 09:30 36.3 C L
--- NOTE | 2021-08-06 15:11 | PM.PNNEP ---
Progress Note: A&P Assessment and Plan (1) SOLANGE (acute kidney injury): Code(s): N17.9 - Acute kidney failure, unspecified Status: Acute Assessment and Plan: this is secondary to BIOPSY PROVEN cast nephropathy however, she also had signifiant scarring present (~ 70%) so there may be an element of disease progression as well with rising creatinine in association with declining urine output and high degree of light chains, started on plasmapheresis and dialysis plasmaphresis on M/W/F hemodialysis on T/T/S - HD tomorrow she will need outpatient dialysis logistics of doing outpatient plasmapheresis, hemodialysis, and chemotherapy appears quite difficult to arrange tentative plan is to do plasmapheresis today and Friday as an inpatient and then discontinue follow trend of labs (in between dialysis) and UOP to assess for potential renal recovery (2) Chronic kidney disease, stage IV (severe): Code(s): N18.4 - Chronic kidney disease, stage 4 (severe) Status: Chronic Assessment and Plan: baseline creatinine seems to run ~ 1.5 - 2.0mg/dl 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 suspect HTN and DM playing a role as well see #1 (3) Multiple myeloma: Code(s): C90.00 - Multiple myeloma not having achieved remission Status: Chronic Assessment and Plan: getting plasmapheresis stated on steroids -- to start Velcade as well Hem/Onc following (4) Anemia: Code(s): D64.9 - Anemia, unspecified Status: Chronic Assessment and Plan: likely due to SOLANGE, CKD, and mutiple myeloma Epogen with HD follow H/H (5) Hypertension: Code(s): I10 - Essential (primary) hypertension Status: Chronic Assessment and Plan: reasonable control at this time follow trend of hemodynamics (6) Diabetes: Qualifiers: Diabetes mellitus type: type 2 Diabetes mellitus machine long goods helper insulin use: without long-term use Diabetes mellitus complication status: without complication Qualified Code(s): E11.9 - Type 2 diabetes mellitus without complications Code(s): E11.9 - Type 2 diabetes mellitus without complications Status: Chronic Assessment and Plan: follow accucheks on Lantus and SSI Would not be opposed to discharge after last plasmapheresis session on Friday (08/08/21) assuming she is medically stable and outpatient dialysis unit/schedule is finalized. Will continue to follow. Subjective Date/time seen: 08/06/21 15:11 Tolerated plasmapheresis treatment today without any issue or problems; noted rise in BUN and creatinine in between dialysis treatments but continues to make reasonable urine output; no apparent distress noted on my visit; no issues/events overnight or earlier this morning. Exam Narrative: General: WD/WN female in NAD Heart: normal S1 and S2; no rub Lungs: clear to auscultation Abdomen: soft, nontender, nondistended, positive bowel sounds Extremities: no cyanosis or clubbing; trace edema Skin: no nodules Objective Data Vital Signs Vital Signs: Vital Signs Temp Pulse Resp BP Pulse Ox O2 Del Method FiO2 08/06/21 10:09 18 96 Room Air 08/06/21 10:00 74 08/06/21 09:01 74 18 08/06/21 10:12 36.3 C L 78 18 08/06/21 09:30 36.3 C L 95 18 08/06/21 09:00 36.3 C L 72 19 08/06/21 08:30 36.7 C 65 18 95 08/06/21 05:43 36.7 C 75 20 151/75 H 99 08/06/21 02:45 70 95 CPAP 08/05/21 22:35 73 96 CPAP 08/05/21 20:00 77 20 96 Room Air 21 08/05/21 21:48 36.6 C 77 20 148/64 H 96 08/05/21 21:17 75 Intake/Output Intake/Output: Intake & Output 08/03/21 08/04/21 08/05/21 08/06/21 23:59 23:59 23:59 23:59 Intake Total 1900 2210 2130 420 Output Total 1175 4600 900 1800 Balance 725 -2390 1230 -1380 Meds/Results Medications: Active Medications Generic Name Dose
--- NOTE | 2021-08-06 16:03 | PM.IMPN ---
Progress Note: A&P Assessment and Plan (1) Acute on chronic kidney failure: Code(s): N17.9 - Acute kidney failure, unspecified; N18.9 - Chronic kidney disease, unspecified Status: Acute Assessment and Plan: Suspect secondary to progressive multiple myeloma, biopsy showed multiple myeloma as etiology of renal failure, appreciate nephrology consultation Currently receiving plasmapheresis and hemodialysis, anticipate only needing hemodialysis at discharge Status post 3 day course of Decadron per Oncology Last course of plasmapheresis on Friday, patient requesting hemodialysis Friday discharge (2) Acute on chronic anemia: Code(s): D64.9 - Anemia, unspecified Status: Acute Assessment and Plan: Stable, defer Procrit administration to Nephrology (3) Multiple myeloma: Code(s): C90.00 - Multiple myeloma not having achieved remission Status: Chronic Assessment and Plan: holding her oral chemotherapy at this time, plan is to start Velcade on outpatient basis (4) Insulin dependent type 2 diabetes mellitus: Code(s): E11.9 - Type 2 diabetes mellitus without complications; Z79.4 - custodial (current) use of insulin Status: Acute Assessment and Plan: Continue basal insulin. Initiate sliding scale insulin, Accu-Cheks, and hypoglycemic protocol. Controlled (5) Obstructive sleep apnea on CPAP: Code(s): G47.33 - Obstructive sleep apnea (adult) (pediatric); Z99.89 - Dependence on other enabling machines and devices Status: Acute Assessment and Plan: CPAP will be provided for the patient to use while hospitalized. (6) Hypertension: Code(s): I10 - Essential (primary) hypertension Status: Chronic Assessment and Plan: Monitor blood pressure (7) Paroxysmal atrial fibrillation: Code(s): I48.0 - Paroxysmal atrial fibrillation Status: Acute Assessment and Plan: Currently sounds to be in a sinus rhythm. Subjective Date/time seen: 08/06/21 16:03 Interval history: Patient sitting up to chair, no complaints. No overnight events noted. No chest pain or shortness of breath. No nausea, vomiting or diarrhea. No fevers or chills. Review of Systems Review of Systems: 12 point review of systems was assessed and was negative except as noted in the HPI Exam Narrative: General: No acute distress, alert and oriented per baseline HEENT: Atraumatic, normocephalic, mucous membranes moist CV: Regular rate and rhythm, S1, S2 no murmurs rubs or gallops noted Lungs: Clear to auscultation bilaterally, no rales or crackles noted, no wheezes, good air entry Abdomen: Soft, nontender, nondistended Extremities: Normal to inspection Skin: No rashes noted, no lesions or wounds seen Psych: Euthymic, normal affect Neuro: Cranial nerves 2-12 grossly intact, strength +5/5 upper and lower extremities bilaterally Objective Data Vital Signs Vital Signs: Vital Signs - 24 hr 08/05/21 21:17 08/05/21 21:48 08/05/21 20:00 Temperature 97.8 F Pulse Rate 75 77 77 Respiratory Rate 20 20 Blood Pressure 148/64 H Pulse Oximetry 96 96 Oxygen Delivery Room Air Fraction of Inspired Oxygen 21 08/05/21 22:35 08/06/21 02:45 08/06/21 05:43 Temperature 98.0 F Pulse Rate 73 70 75 Respiratory Rate 20 Blood Pressure 151/75 H Pulse Oximetry 96 95 99 Oxygen Delivery CPAP CPAP Fraction of Inspired Oxygen 08/06/21 08:30 08/06/21 09:00 08/06/21 09:30 Temperature 98.0 F 97.4 F L 97.4 F L Pulse Rate 65 72 95 Respiratory Rate 18 19 18 Blood Pressure Pulse Oximetry 95 Oxygen Delivery Fraction of Inspired Oxygen 08/06/21 10:12 08/06/21 09:01 08/06/21 10:00 Temperature 97.4 F L Pulse Rate 78 74 74 Respiratory Rate 18 18 Blood Pressure Pulse Oximetry Oxygen Delivery Fraction of Inspired Oxygen 08/06/21 10:09 Temperature Pulse Rate
[2021-08-06 16:52] LABS: Glucose Point of Care 194 mg/dl (65-105)
[2021-08-06] MEDS: SERTRALINE HCL 50 MG TABLET PO (20:58)
[2021-08-06] MEDS: PREGABALIN (*CRX) 25 MG CAPSULE 75 MG PO (20:58)
[2021-08-06] MEDS: PRIMIDONE 50 MG TABLET 100 MG PO (20:59)
[2021-08-06] MEDS: INSULIN GLARGINE (LANTUS) 1,000 UNITS/10 ML VIAL 40 UNITS SUB-Q (21:01)
[2021-08-06 21:40] LABS: Glucose Point of Care 196 mg/dl (65-105)
[2021-08-06] MEDS: HYDROcodone/acetaminophen (*CRX) 7.5-325 MG TABLET 1 TAB PO (23:59)
[2021-08-07] VITALS (19 sets, daily range): BP systolic 140–173; BP diastolic 50–100; PULSE 61–94; RESP 16–20; TEMP 36–36.7; O2SAT 94–100
[2021-08-07 06:47] LABS: Hematocrit 29.9 % (37.0-47.0); Hemoglobin 9.4 g/dL (12.0-15.0); Immature Platelet Fraction Pct 8.7 % (0.9-11.2); Mean Corpuscular HGB Conc 31.4 g/dl (32-36); Mean Corpuscular Hemoglobin 29.9 pg (26-34); Mean Corpuscular Volume 95.2 fl (80-100); Mean Platelet Volume 11.9 fl (7.4-10.4); Platelet Count Result 62 k/mm3 (150-375); Red Blood Count 3.14 M/mm3 (4.2-5.4); White Blood Count 2.8 K/mm3 (4.5-10.0)
[2021-08-07] MEDS: OMEGA 3 POLYUNSAT FATTY ACIDS 1 GM CAP 2 GM PO ×2 (06:53→16:33)
[2021-08-07 06:54] LABS: INR 1.3
[2021-08-07 06:55] LABS: Anion Gap 14 mmol/L (8-16); Blood Urea Nitrogen 43 mg/dL (7-17); Calcium 8.5 mg/dL (8.4-10.2); Carbon Dioxide 19 mmol/L (22-30); Chloride 104 mmol/L (98-107); Estimated CRCL calculation 10 ml/min; Estimated Glomerular Filt Rate 6; Glucose 129 mg/dL (65-110); Potassium 4.4 mmol/L (3.4-5.0); Sodium 137 mmol/L (137-145)
[2021-08-07] MEDS: ALBUMIN HUMAN 25% 12.5 GM/50ML 50 ML IVPB (07:20)
--- NOTE | 2021-08-07 07:31 | PCOTNOTE ---
Patient in dialysis this AM. Will continue OT per plan of care.
[2021-08-07] MEDS: SODIUM CHLORIDE 0.9% IV 1,000 ML 10 ML IV CONT (08:25)
--- NOTE | 2021-08-07 08:34 | PM.IMPN ---
Progress Note: A&P Assessment and Plan (1) Acute on chronic kidney failure: Code(s): N17.9 - Acute kidney failure, unspecified; N18.9 - Chronic kidney disease, unspecified Status: Acute Assessment and Plan: Suspect secondary to progressive multiple myeloma, biopsy showed multiple myeloma as etiology of renal failure, appreciate nephrology consultation Currently receiving plasmapheresis and hemodialysis, anticipate only needing hemodialysis at discharge Status post 3 day course of Decadron per Oncology Last course of plasmapheresis on Friday, patient requesting hemodialysis Friday at discharge Unable to arrange dialysis per patient request, patient will be discharged tomorrow after plasmapheresis to be receiving hemodialysis Friday, and Friday Velcade injections per Dr. 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 Initiate sliding scale insulin, Accu-Cheks, and hypoglycemic protocol. Controlled (5) Obstructive sleep apnea on CPAP: Code(s): G47.33 - Obstructive sleep apnea (adult) (pediatric); Z99.89 - Dependence on other enabling machines and devices Status: Acute Assessment and Plan: CPAP will be provided for the patient to use while hospitalized. (6) Hypertension: Code(s): I10 - Essential (primary) hypertension Status: Chronic Assessment and Plan: Monitor blood pressure (7) Paroxysmal atrial fibrillation: Code(s): I48.0 - Paroxysmal atrial fibrillation Status: Acute Subjective Date/time seen: 08/07/21 08:34 Interval history: Patient very upset that her dialysis currently be arranged Friday, , Friday. She is hoping to have it arranged Friday, Friday, Friday. She is also concerned that she needs to get Velcade with Oncology on Tuesdays, when she is already having to go to dialysis. Care coordination to discuss details with patient prior to discharge. No overnight events noted. No chest pain or shortness of breath. No nausea, vomiting or diarrhea. No fevers or chills. Review of Systems Review of Systems: 12 point review of systems was assessed and was negative except as noted in the HPI Exam Narrative: General: Patient resting comfortably in bed, no acute distress HEENT: Atraumatic, normocephalic, mucous membranes moist CV: Regular rate and rhythm, S1, S2, no murmurs rubs or gallops noted Lungs: Clear to auscultation bilaterally, no rales or crackles noted, no wheezes, good air entry Abdomen: Soft, nontender, nondistended Extremities: Normal to inspection, no edema noted Skin: No rashes noted, no lesions or wounds seen Psych: Euthymic, normal affect Neuro: Cranial nerves 2-12 grossly intact, strength 5/5 upper and lower extremities noted Objective Data Vital Signs Vital Signs: Vital Signs - 24 hr 08/06/21 09:00 08/06/21 09:30 08/06/21 10:12 Temperature 97.4 F L 97.4 F L 97.4 F L Pulse Rate 72 95 78 Respiratory Rate 19 18 18 Blood Pressure Pulse Oximetry Oxygen Delivery 08/06/21 09:01 08/06/21 10:00 08/06/21 10:09 Temperature Pulse Rate 74 74 Respiratory Rate 18 18 Blood Pressure Pulse Oximetry 96 Oxygen Delivery Room Air 08/06/21 14:00 08/06/21 20:58 08/06/21 21:43 Temperature 98.1 F 97.5 F L Pulse Rate 77
[2021-08-07] MEDS: EPOETIN ALFA-EPBX 10,000 UNITS/ML VIAL 10000 UNITS IV PUSH (08:37)
[2021-08-07] MEDS: UMECLIDINIUM BROMIDE 62.5 MCG ELLIPTA 1 PUFF INHALATION (08:57)
[2021-08-07] MEDS: FLUTICASONE/SALMETEROL 230-21 MCG INHALER 1 PUFF 2 PUFF INHALATION ×2 (08:58→20:09)
--- NOTE | 2021-08-07 09:02 | PCPTNOTE ---
The patient treatment was not able to be completed due to patient out of room for dialysis. Will plan to continue treatment per plan of care.
--- NOTE | 2021-08-07 10:34 | P.PNNP_ITS ---
Progress Note: A&P Assessment and Plan (1) SOLANGE (acute kidney injury): Code(s): N17.9 - Acute kidney failure, unspecified Status: Acute Assessment and Plan: * this is secondary to BIOPSY PROVEN cast nephropathy * however, she also had signifiant scarring present (~ 70%) so there may be an element of disease progression as well * with rising creatinine in association with declining urine output and high degree of light chains, started on plasmapheresis and dialysis * plasmaphresis on // * hemodialysis on T/T/S - HD today * she will need outpatient dialysis * logistics of doing outpatient plasmapheresis, hemodialysis, and chemotherapy appears quite difficult to arrange * tentative plan is to do plasmapheresis tomorrow/Friday as an inpatient and then discontinue plasmapheresis * follow trend of labs (in between dialysis) and UOP to assess for potential renal recovery (2) Chronic kidney disease, stage IV (severe): Code(s): N18.4 - Chronic kidney disease, stage 4 (severe) Status: Chronic Assessment and Plan: * baseline creatinine seems to run ~ 1.5 - 2.0mg/dl * 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 * suspect HTN and DM playing a role as well * see #1 (3) Multiple myeloma: Code(s): C90.00 - Multiple myeloma not having achieved remission Status: Chronic Assessment and Plan: * getting plasmapheresis * stated on steroids -- to start Velcade as well * Hem/Onc following (4) Anemia: Code(s): D64.9 - Anemia, unspecified Status: Chronic Assessment and Plan: * likely due to SOLANGE, CKD, and mutiple myeloma * Epogen with HD * follow H/H (5) Hypertension: Code(s): I10 - Essential (primary) hypertension Status: Chronic Assessment and Plan: * reasonable control at this time * follow trend of hemodynamics (6) Diabetes: Qualifiers: Diabetes mellitus complication status: without complication Diabetes mellitus extermination inspector insulin use: without usp use Diabetes mellitus type: type 2 Qualified Code(s): E11.9 - Type 2 diabetes mellitus without complications Code(s): E11.9 - Type 2 diabetes mellitus without complications Status: Chronic Assessment and Plan: * follow accucheks * on Lantus and SSI Would not be opposed to discharge after last plasmapheresis session on Friday (08/08/21) assuming she is medically stable and outpatient dialysis unit/schedule is finalized. Will continue to follow. Subjective Date/time seen: 08/07/21 10:34 Tolerating hemodialysis treatment at the time of my visit (seen on HD at 10:20am); major complaint is that of fatigue/tiredness; no new issues or problems to report; no events overnight or earlier this morning; no apparent distress. Exam Narrative: General: WD/WN female in NAD Heart: normal S1 and S2; no rub Lungs: clear to auscultation Abdomen: soft, nontender, nondistended, positive bowel sounds Extremities: no cyanosis or clubbing; trace edema Skin: warm and dry Objective Data Vital Signs Vital Signs: Vital Signs Temp Pulse Resp BP Pulse Ox O2 Del Method 08/07/21 09:00 74 18 08/07/21 10:00 94 140/78 08/07/21 09:30 72 147/68 H 08/07/21 09:00 72 155/66 H 08/07/21 08:30 67 158/89 H 08/07/21 08:00
--- NOTE | 2021-08-07 10:34 | PM.PNNEP ---
Progress Note: A&P Assessment and Plan (1) SOLANGE (acute kidney injury): Code(s): N17.9 - Acute kidney failure, unspecified Status: Acute Assessment and Plan: this is secondary to BIOPSY PROVEN cast nephropathy however, she also had signifiant scarring present (~ 70%) so there may be an element of disease progression as well with rising creatinine in association with declining urine output and high degree of light chains, started on plasmapheresis and dialysis plasmaphresis on M/W/F hemodialysis on T/T/S - HD today she will need outpatient dialysis logistics of doing outpatient plasmapheresis, hemodialysis, and chemotherapy appears quite difficult to arrange tentative plan is to do plasmapheresis tomorrow/Friday as an inpatient and then discontinue plasmapheresis follow trend of labs (in between dialysis) and UOP to assess for potential renal recovery (2) Chronic kidney disease, stage IV (severe): Code(s): N18.4 - Chronic kidney disease, stage 4 (severe) Status: Chronic Assessment and Plan: baseline creatinine seems to run ~ 1.5 - 2.0mg/dl 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 suspect HTN and DM playing a role as well see #1 (3) Multiple myeloma: Code(s): C90.00 - Multiple myeloma not having achieved remission Status: Chronic Assessment and Plan: getting plasmapheresis stated on steroids -- to start Velcade as well Hem/Onc following (4) Anemia: Code(s): D64.9 - Anemia, unspecified Status: Chronic Assessment and Plan: likely due to SOLANGE, CKD, and mutiple myeloma Epogen with HD follow H/H (5) Hypertension: Code(s): I10 - Essential (primary) hypertension Status: Chronic Assessment and Plan: reasonable control at this time follow trend of hemodynamics (6) Diabetes: Qualifiers: Diabetes mellitus complication status: without complication 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 Will continue to follow. Subjective Date/time seen: 08/07/21 10:34 Tolerating hemodialysis treatment at the time of my visit (seen on HD at 10:20am); major complaint is that of fatigue/tiredness; no new issues or problems to report; no events overnight or earlier this morning; no apparent distress. Exam Narrative: General: WD/WN female in NAD Heart: normal S1 and S2; no rub Lungs: clear to auscultation Abdomen: soft, nontender, nondistended, positive bowel sounds Extremities: no cyanosis or clubbing; trace edema Skin: warm and dry Objective Data Vital Signs Vital Signs: Vital Signs Temp Pulse Resp BP Pulse Ox O2 Del Method 08/07/21 09:00 74 18 08/07/21 10:00 94 140/78 08/07/21 09:30 72 147/68 H 08/07/21 09:00 72 155/66 H 08/07/21 08:30 67 158/89 H 08/07/21 08:00 70 157/50 H 08/07/21 07:30 64 150/67 H 08/07/21 07:20 65 165/74 H 08/07/21 07:10 36.7 C 63 16 149/75 H 08/07/21 05:47 36.7 C 64 18 146/59 H 100 08/07/21 04:10 77 94 CPAP 08/06/21 23:51 72 96 CPAP 08/06/21 20:00 Room Air 08/06/21 21:43 36.4 C L 78 18 153/63 H 97 08/06/21 20:58 77 08/06/21 14:00 36.7 C 77 20 137/50 L 95 Intake/Output Intake/Output: Intake & Output 08/04/21 08/05/21 08/06/21 08/07/21 23:59 23:59 23:59 23:59 Intake Total 2210 2130 1760 150 Output Total 4600 900 2350 200 Balance -2390 1230 -590 -50 Meds/Resul
[2021-08-07] MEDS: PREGABALIN (*CRX) 25 MG CAPSULE PO (11:23)
[2021-08-07] MEDS: MAGNESIUM OXIDE 400 MG TABLET PO (11:24)
[2021-08-07] MEDS: calcitrioL 0.25 MCG CAPSULE PO (11:24)
[2021-08-07] MEDS: CYCLOBENZAPRINE HCL 10 MG TABLET PO ×2 (11:24→20:10)
[2021-08-07] MEDS: ISOSORBIDE MONONITRATE 30 MG TAB.ER.24H PO (11:24)
[2021-08-07] MEDS: LORATADINE 10 MG TABLET PO (11:24)
[2021-08-07] MEDS: PANTOPRAZOLE 40 MG TABLET PO (11:24)
[2021-08-07] MEDS: amLODIPine BESYLATE 5 MG TABLET PO (11:24)
[2021-08-07] MEDS: DOCUSATE SODIUM 100 MG CAPSULE PO ×2 (11:24→16:34)
[2021-08-07] MEDS: FENOFIBRATE,MICRONIZED 48 MG TABLET PO (11:24)
[2021-08-07] MEDS: METOPROLOL TARTRATE 25 MG TABLET PO ×2 (11:25→20:10)
[2021-08-07] MEDS: PRIMIDONE 50 MG TABLET PO (11:26)
[2021-08-07 11:46] LABS: Glucose Point of Care 113 mg/dl (65-105)
--- NOTE | 2021-08-07 13:11 | PCOTNOTE ---
Per [employer], patient exhausted and declined PT at 12pm. Will continue OT plan of care tomorrow.
--- NOTE | 2021-08-07 13:12 | PCPTNOTE ---
Patient declined PT stating she feels very fatigued following dialysis this morning. PT will continue to follow per plan of care.
[2021-08-07] MEDS: FERROUS SULFATE 324 MG TABLET 648 MG PO (15:00)
[2021-08-07 16:45] LABS: Glucose Point of Care 195 mg/dl (65-105)
[2021-08-07] MEDS: HYDROcodone/acetaminophen (*CRX) 5-325 MG TABLET 1 TAB PO (17:22)
[2021-08-07] MEDS: PREGABALIN (*CRX) 25 MG CAPSULE 75 MG PO (20:10)
[2021-08-07] MEDS: SERTRALINE HCL 50 MG TABLET PO (20:10)
[2021-08-07] MEDS: PRIMIDONE 50 MG TABLET 100 MG PO (20:10)
[2021-08-07] MEDS: INSULIN GLARGINE (LANTUS) 1,000 UNITS/10 ML VIAL 40 UNITS SUB-Q (21:19)
[2021-08-07 21:25] LABS: Glucose Point of Care 258 mg/dl (65-105)
[2021-08-08] VITALS (9 sets, daily range): BP systolic 131–162; BP diastolic 47–75; PULSE 69–86; RESP 18–20; TEMP 36.4–37.7; O2SAT 95–100
[2021-08-08] MEDS: OMEGA 3 POLYUNSAT FATTY ACIDS 1 GM CAP 2 GM PO ×2 (05:41→17:03)
[2021-08-08 06:25] LABS: Immature Platelet Fraction Pct 9.3 % (0.9-11.2); Mean Corpuscular HGB Conc 31.3 g/dl (32-36); Mean Corpuscular Hemoglobin 29.9 pg (26-34); Mean Corpuscular Volume 95.8 fl (80-100); Mean Platelet Volume 11.7 fl (7.4-10.4); Platelet Count Result 56 k/mm3 (150-375); Red Blood Count 3.34 M/mm3 (4.2-5.4); Red Cell Distribution Width 15.9 % (11.5-14.5); White Blood Count 3.6 K/mm3 (4.5-10.0)
[2021-08-08 06:47] LABS: Anion Gap 10 mmol/L (8-16); Blood Urea Nitrogen 29 mg/dL (7-17); Calcium 8.9 mg/dL (8.4-10.2); Carbon Dioxide 27 mmol/L (22-30); Chloride 101 mmol/L (98-107); Estimated CRCL calculation 12 ml/min; Estimated Glomerular Filt Rate 8; Glucose 131 mg/dL (65-110); Potassium 3.8 mmol/L (3.4-5.0); Sodium 138 mmol/L (137-145)
[2021-08-08] MEDS: FLUTICASONE/SALMETEROL 230-21 MCG INHALER 1 PUFF 2 PUFF INHALATION (07:52)
[2021-08-08] MEDS: UMECLIDINIUM BROMIDE 62.5 MCG ELLIPTA 1 PUFF INHALATION (07:52)
[2021-08-08 07:55] LABS: Glucose Point of Care 119 mg/dl (65-105)
[2021-08-08] MEDS: LORATADINE 10 MG TABLET PO (08:23)
[2021-08-08] MEDS: PREGABALIN (*CRX) 25 MG CAPSULE PO (08:23)
[2021-08-08] MEDS: calcitrioL 0.25 MCG CAPSULE PO (08:23)
[2021-08-08] MEDS: MAGNESIUM OXIDE 400 MG TABLET PO (08:23)
[2021-08-08] MEDS: PRIMIDONE 50 MG TABLET PO (08:23)
[2021-08-08] MEDS: PANTOPRAZOLE 40 MG TABLET PO (08:23)
[2021-08-08] MEDS: METOPROLOL TARTRATE 25 MG TABLET PO (08:23)
[2021-08-08] MEDS: amLODIPine BESYLATE 5 MG TABLET PO (08:24)
[2021-08-08] MEDS: CYCLOBENZAPRINE HCL 10 MG TABLET PO (08:24)
[2021-08-08] MEDS: DOCUSATE SODIUM 100 MG CAPSULE PO ×2 (08:24→17:03)
[2021-08-08] MEDS: ISOSORBIDE MONONITRATE 30 MG TAB.ER.24H PO (08:24)
[2021-08-08] MEDS: FENOFIBRATE,MICRONIZED 48 MG TABLET PO (08:24)
[2021-08-08] MEDS: CALCIUM GLUC 2,000 MG/NS 100ML 2,000 MG/100 ML BAG 100 MG IVPB (09:10)
[2021-08-08] MEDS: SODIUM CHLORIDE 0.9% IV 1,000 ML 999 ML IV CONT (09:10)
--- NOTE | 2021-08-08 09:56 | PCOTNOTE ---
Patient receiving fresh, frozen plasma per RN. Unavailable. Will continue plan of care.
--- NOTE | 2021-08-08 10:17 | PCPTNOTE ---
The patient treatment was not able to be completed due to patient receiving plasmapheresis at bedside. Will plan to continue treatment per plan of care.
--- NOTE | 2021-08-08 11:08 | PC.NURSE ---
Addendum entered by Miko Wray RN 08/08/21 11:12: [facility] Original Note: Usman RM# [id number] today for scheduled TPE #9 PT: Jaimie Nix DR: Saad Marques MD DX: MM Kidney PROCEDURE: TPE ORDERS: 3000mL ALBUMIN 5% LABS: verified ACCESS: R - SubClavian Tip @ [facility] [place] Performed well; brisk blood return, flushes without resistance BLUE: RETURN RED: DRAW Accessed under sterile/aseptic technique De-accessed under the same technique. Flushed with NS, Locked with ACDA and capped per protocol. ASSESSMENT: A&O x 4 with memory difficulties improving; requires re-teaching of treatments etc. VS stable throughout Awake for entire treatment TIMES Start 0910 Stop 1018 VOLUMES Total Inlet Processed: 5981 Total Volume In: 3325 Plasma Removed: 3314 Fluid Balance: +11 TREATMENT PLAN: Per Nephrology Consult Dr Barba note 08-07-21 nad phone confirmation with Dr Marques , TPE will discontinue today as patient is planning for discharge today. No further TPE planned at this time. Light Chains numbers still pending.
[2021-08-08 11:46] LABS: Glucose Point of Care 154 mg/dl (65-105)
--- NOTE | 2021-08-08 12:52 | WPDONCPN ---
Progress Note: A/P - Additional Plan Multiple myeloma. Status post kidney biopsy that showed myeloma kidney. Patient has received 3 doses of dexamethasone. She had plasmapheresis done today. Kidney function has improved. Patient was started treatment with Velcade Cytoxan and dexamethasone as an outpatient and orders have been placed. She will follow-up with us next week to start the treatment. Anemia secondary to chronic kidney disease. She will continue Procrit injection in the office along with oral iron. Chronic kidney disease. Patient is on hemodialysis and will follow-up with Nephrology. - Time Spent With Patient Total time spent is greater than 50% in coordination of care (as documented) at patient's floor/unit and/or counseling patient: 15 - 25 minutes Subjective Interval history: Multiple myeloma Acute renal failure Review of Systems - Review of Systems Patient denies any chest pain and shortness of breath. She had plasmapheresis today. She is feeling better and seems like to be discharged home today. - Neurologic Reports system reviewed and no additional complaints, except as documented, Reports hearing normal, Reports numbness, Reports weakness, Denies abnormal speech, Denies abnormal gait, Denies confusion, Denies headache(s), Denies other visual disturbances Exam Vital signs: Maryann Bacon. Assessment of coma and impaired consciousness. A practical scale. Lancet 1974; 2:81-4. Narrative: Lungs are clear to auscultation bilaterally Cardiovascular regular rate rhythm no murmurs Abdomen soft nontender nondistended bowel sounds are positive Extremities no edema PN: Objective Data - Labs CBC & Chem 7: 08/08/21 05:50 08/08/21 05:50 Labs: Laboratory Results - last 24 hr 08/07/21 08/07/21 08/08/21 16:30 21:18 05:50 WBC 3.6 L RBC 3.34 L Hgb 10.0 L Hct 32.0 L MCV 95.8 MCH 29.9 MCHC 31.3 L RDW 15.9 H Plt Count 56 L MPV 11.7 H % Immature Plt Fraction 9.3 Sodium Potassium Chloride Carbon Dioxide Anion Gap BUN Creatinine Estim Creat Clear Calc Estimated GFR Glucose POC Capillary Glucose 195 H 258 H Calcium 08/08/21 08/08/21 08/08/21 05:50 07:40 11:40 WBC RBC Hgb Hct MCV MCH MCHC RDW Plt Count MPV % Immature Plt Fraction Sodium 138 Potassium 3.8 Chloride 101 Carbon Dioxide 27 Anion Gap 10 BUN 29 H D Creatinine 5.20 H Estim Creat Clear Calc 12 Estimated GFR 8 L Glucose 131 H POC Capillary Glucose 119 H 154 H Calcium 8.9
--- NOTE | 2021-08-08 12:56 | P.PNNP_ITS ---
Progress Note: A&P Assessment and Plan (1) SOLANGE (acute kidney injury): Code(s): N17.9 - Acute kidney failure, unspecified Status: Acute Assessment and Plan: * this is secondary to BIOPSY PROVEN cast nephropathy * however, she also had signifiant scarring present (~ 70%) so there may be an element of disease progression as well * with rising creatinine in association with declining urine output and high degree of light chains, started on plasmapheresis and dialysis * plasmaphresis on M/W/F * hemodialysis on T/T/S - HD tomorrow * she will need outpatient dialysis * logistics of doing outpatient plasmapheresis, hemodialysis, and chemotherapy appears quite difficult to arrange * plan is to do plasmapheresis todayand then discontinue * follow trend of labs (in between dialysis) and UOP to assess for potential renal recovery (2) Chronic kidney disease, stage IV (severe): Code(s): N18.4 - Chronic kidney disease, stage 4 (severe) Status: Chronic Assessment and Plan: * baseline creatinine seems to run ~ 1.5 - 2.0mg/dl * 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 * suspect HTN and DM playing a role as well * see #1 (3) Multiple myeloma: Code(s): C90.00 - Multiple myeloma not having achieved remission Status: Chronic Assessment and Plan: * getting plasmapheresis * stated on steroids -- to start Velcade as an outpatient * Hem/Onc following (4) Anemia: Code(s): D64.9 - Anemia, unspecified Status: Chronic Assessment and Plan: * likely due to SOLANGE, CKD, and mutiple myeloma * Epogen with HD * follow H/H (5) Hypertension: Code(s): I10 - Essential (primary) hypertension Status: Chronic Assessment and Plan: * reasonable control at this time * follow trend of hemodynamics (6) Diabetes: Qualifiers: Diabetes mellitus type: type 2 Diabetes mellitus senior care insulin use: without senior care use Diabetes mellitus complication status: without complication Qualified Code(s): E11.9 - Type 2 diabetes mellitus without complications Code(s): E11.9 - Type 2 diabetes mellitus without complications Status: Chronic Assessment and Plan: * follow accucheks * on Lantus and SSI Would not be opposed to discharge today assuming she is medically stable and outpatient dialysis unit/schedule has been finalized. Will continue to follow. Subjective Date/time seen: 08/08/21 12:56 Tolerated plasmapheresis earlier today without any issues or problems; tolerated dialysis yesterday as well; eating lunch at the time of my visit; no apparent distress voiced; no other events overnight or earlier this AM to report. Exam Narrative: General: WD/WN female in NAD Heart: normal S1 and S2; no rub Lungs: clear to auscultation Abdomen: soft, nontender, nondistended, positive bowel sounds Extremities: no cyanosis or clubbing; trace edema Skin: warm and intact Objective Data Vital Signs Vital Signs: Vital Signs Temp Pulse Resp BP Pulse Ox O2 Del Method 08/08/21 10:18 36.8 C 77 18 137/47 L 97 08/08/21 09:30 37.4 C 84 18 162/53 H 97 08/08/21 09:10 37.7 C H 86 18 152/55 H 98 08/08/21 10:18 36.8 C 77 18 08/08/21 09:30 37.4 C 84 18 08/08/21 09:00 37.7 C H 86 18 97 08/08/21 06:00
--- NOTE | 2021-08-08 12:56 | PM.PNNEP ---
Progress Note: A&P Assessment and Plan (1) SOLANGE (acute kidney injury): Code(s): N17.9 - Acute kidney failure, unspecified Status: Acute Assessment and Plan: this is secondary to BIOPSY PROVEN cast nephropathy however, she also had signifiant scarring present (~ 70%) so there may be an element of disease progression as well with rising creatinine in association with declining urine output and high degree of light chains, started on plasmapheresis and dialysis plasmaphresis on M/W/F hemodialysis on T/T/S - HD tomorrow she will need outpatient dialysis logistics of doing outpatient plasmapheresis, hemodialysis, and chemotherapy appears quite difficult to arrange plan is to do plasmapheresis todayand then discontinue follow trend of labs (in between dialysis) and UOP to assess for potential renal recovery (2) Chronic kidney disease, stage IV (severe): Code(s): N18.4 - Chronic kidney disease, stage 4 (severe) Status: Chronic Assessment and Plan: baseline creatinine seems to run ~ 1.5 - 2.0mg/dl 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 suspect HTN and DM playing a role as well see #1 (3) Multiple myeloma: Code(s): C90.00 - Multiple myeloma not having achieved remission Status: Chronic Assessment and Plan: getting plasmapheresis stated on steroids -- to start Velcade as an outpatient Hem/Onc following (4) Anemia: Code(s): D64.9 - Anemia, unspecified Status: Chronic Assessment and Plan: likely due to SOLANGE, CKD, and mutiple myeloma Epogen with HD follow H/H (5) Hypertension: Code(s): I10 - Essential (primary) hypertension Status: Chronic Assessment and Plan: reasonable control at this time follow trend of hemodynamics (6) Diabetes: Qualifiers: Diabetes mellitus type: type 2 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 Will continue to follow. Subjective Date/time seen: 08/08/21 12:56 Tolerated plasmapheresis earlier today without any issues or problems; tolerated dialysis yesterday as well; eating lunch at the time of my visit; no apparent distress voiced; no other events overnight or earlier this AM to report. Exam Narrative: General: WD/WN female in NAD Heart: normal S1 and S2; no rub Lungs: clear to auscultation Abdomen: soft, nontender, nondistended, positive bowel sounds Extremities: no cyanosis or clubbing; trace edema Skin: warm and intact Objective Data Vital Signs Vital Signs: Vital Signs Temp Pulse Resp BP Pulse Ox O2 Del Method 08/08/21 10:18 36.8 C 77 18 137/47 L 97 08/08/21 09:30 37.4 C 84 18 162/53 H 97 08/08/21 09:10 37.7 C H 86 18 152/55 H 98 08/08/21 10:18 36.8 C 77 18 08/08/21 09:30 37.4 C 84 18 08/08/21 09:00 37.7 C H 86 18 97 08/08/21 06:00 36.7 C 77 18 131/75 100 08/08/21 05:47 36.7 C 77 20 131/75 100 08/08/21 04:38 69 96 CPAP 08/08/21 02:27 71 96 CPAP 08/07/21 22:23 74 95 CPAP 08/07/21 21:57 36.3 C L 86 18 141/51 H 95 08/07/21 20:00 Room Air 08/07/21 20:10 72 08/07/21 14:00 36.7 C 67 20 144/50 H 100 Intake/Output Intake/Output: Intake & Output 08/05/21 08/06/21 08/07/21 08/08/21 23:59 23:59 23:59 23:59 Intake Total 2130 1760 1720 121 Output Total 900 2350 2950 200 Balance 1230 -590 -1230 -79 Meds/Results Medications: Active Medications Generic Name Dose Rou
--- NOTE | 2021-08-08 15:09 | PM.DS ---
DS: Admitting Diagnosis Discharge Date 08/08/2021 Admitting Diagnosis Acute on chronic renal failure DS: Discharge Diagnosis Discharge Diagnosis (1) Acute on chronic kidney failure: Code(s): N17.9 - Acute kidney failure, unspecified; N18.9 - Chronic kidney disease, unspecified Status: Acute Assessment and Plan: Suspect secondary to progressive multiple myeloma, biopsy showed multiple myeloma as etiology of renal failure, appreciate nephrology consultation She received plasmapheresis and started on hemodialysis during the hospital stay Status post 3 day course of Decadron per Oncology She is scheduled to receive hemodialysis Friday from tomorrow. Okay for nephrology to discharge home today (2) Acute on chronic anemia: Code(s): D64.9 - Anemia, unspecified Status: Acute Assessment and Plan: Stable, Procrit injection as an outpatient basis along with oral iron (3) Multiple myeloma: Code(s): C90.00 - Multiple myeloma not having achieved remission Status: Chronic Assessment and Plan: Received 3 doses of dexamethasone and plasmapheresis during the hospital stay. She is going to get started on treatment with Velcade Cytoxan and dexamethasone as an outpatient basis. She will follow-up with oncology for continued treatment Acute renal failure likely due to myeloma kidney biopsy-proven cast nephropathy noted See was on lenalidomide prior to this. Which has been discontinued renal impairment. She was then started on plasmapheresis for her elevated light chain disease. She is going to be started on Velcade treatment for her myeloma which is going to be started after discharge in outpatient basis as it was not possible to start Velcade treatment as an inpatient. (4) Insulin dependent type 2 diabetes mellitus: Code(s): E11.9 - Type 2 diabetes mellitus without complications; Z79.4 - watermaster (current) use of insulin Status: Acute Assessment and Plan: Continue basal insulin. Initiate sliding scale insulin, Accu-Cheks, and hypoglycemic protocol. Controlled Will lower her insulin Tresiba as she has been getting half the dose during inpatient along with sliding scale insulin with Humalog. (5) Obstructive sleep apnea on CPAP: Code(s): G47.33 - Obstructive sleep apnea (adult) (pediatric); Z99.89 - Dependence on other enabling machines and devices Status: Acute Assessment and Plan: CPAP was be continued during the hospital stay. (6) Hypertension: Code(s): I10 - Essential (primary) hypertension Status: Chronic Assessment and Plan: Blood pressure elevated and was treated with antihypertensive Losartan was hold because of SOLANGE and switched to amlodipine (7) Paroxysmal atrial fibrillation: Code(s): I48.0 - Paroxysmal atrial fibrillation Status: Acute Assessment and Plan: Rate controlled. Patient was evaluated with the EKG at discharge which showed sinus rhythm. Unclear whether she had any atrial fibrillation during this admission. No rhythm strip were available for me to review. She had an admission in April with atrial fibrillation with rapid ventricular rate new onset. She was sent home on Pradaxa for anticoagulation as the Eliquis or Xarelto interacted with primidone. She however has not been taking his due to his cost. She now has end-stage renal disease on hemodialysis being started this admission. Pradaxa will be contraindicated in this setting. Option of Eliquis or warfarin for his stroke prophylaxis. She does not prefer warfarin for anticoagulation. Due to her hemodialysis will do Eliquis 2.5 mg b.i.d.. She is in sinus rhythm but has a history of proximal atrial fibrillation with chads Vasc score of 5. See also sees ordnance keeper which I recommended her to follow-up with. With regard to her primidone along with Eliquis it is noted there is interaction with primidone making Marguerite godwin
[2021-08-08] MEDS: FERROUS SULFATE 324 MG TABLET 648 MG PO (15:43)
--- NOTE | 2021-08-08 15:52 | ECG_ITS ---
Measurements Intervals [place] Rate: 81 P: 15 GA: 162 QRS: -79 QRSD: 153 T: 14 QT: 415 QTc: 484 Interpretive Statements SINUS RHYTHM RIGHT BUNDLE BRANCH BLOCK [120+ ms QRS DURATION, UPRIGHT V1, 40+ ms S IN I/aVL/V4/V5/V6] LEFT ANTERIOR FASCICULAR BLOCK [QRS AXIS <= -45, QR IN I, RS IN II] COMPARED TO ECG 04/17/2021 08:26:45 NO SIGNIFICANT CHANGES Electronically Signed On 08-08-2021 22:50:01 CDT by Aziza Pittman M.D.
[2021-08-08 16:43] LABS: Glucose Point of Care 193 mg/dl (65-105)
[2021-08-09 08:20] LABS: Lambda Light Chain 3944.6 mg/L (5.7-26.3)
== END 2021-08-08 18:10 | disposition home or self-care (01) | DRG 841 ==
LOC: ANHED 15:33 → ANH3MEDSUR 16:55
PROVIDERS: Internal Medicine Hematology & Oncology; Internal Medicine Nephrology; Physician Assistant; Student in an Organized Health Care Education/Training Program; Surgery; Admitting Provider Family Medicine; Emergency Provider Emergency Medicine; PCP Internal Medicine; Visit Provider Internal Medicine
PROC: 0JH63XZ Insertion of Tunneled Vascular Access Device into Chest Subcutaneous Tissue and Fascia, Percutaneous Approach (ICD-10-PCS; CPT 36908; principal; 2021-07-21 07:30)
DX: C90.00 Multiple myeloma not having achieved remission (principal); N17.9 Acute kidney failure, unspecified; N39.0 Urinary tract infection, site not specified; N18.4 Chronic kidney disease, stage 4 (severe); N08 Glomerular disorders in diseases classified elsewhere; I48.0 Paroxysmal atrial fibrillation; I25.10 Atherosclerotic heart disease of native coronary artery without angina pectoris; E78.5 Hyperlipidemia, unspecified; K21.9 Gastro-esophageal reflux disease without esophagitis; M10.9 Gout, unspecified; Z79.4 Long term (current) use of insulin; G47.33 Obstructive sleep apnea (adult) (pediatric); M19.90 Unspecified osteoarthritis, unspecified site; I12.9 Hypertensive chronic kidney disease with stage 1 through stage 4 chronic kidney disease, or unspecified chronic kidney disease; E11.22 Type 2 diabetes mellitus with diabetic chronic kidney disease; E86.0 Dehydration; D63.1 Anemia in chronic kidney disease; M47.22 Other spondylosis with radiculopathy, cervical region; D63.0 Anemia in neoplastic disease; Z95.5 Presence of coronary angioplasty implant and graft; K59.00 Constipation, unspecified; R25.1 Tremor, unspecified
CPT/HCPCS: 36415; 36430; 36514; 50200; 71045; 72050; 74018; 74176; 76775; 76942; 77001; 80047; 80048; 80053; 80069; 81001; 82274; 82570; 82607; 82728; 82746; 82784; 82948; 83540; 83550; 83735; 83883; 84100; 84156; 84300; 85025; 85027; 85046; 85055; 85610; 85730; 86334; 86704; 86706; 86803; 86850; 86900; 86901; 86920; 87086; 87088; 87340; 88300; 88305; 88313; 88329; 88346; 88348; 88350; 93005; 94640; 96361; 96365; 96367; 96372; 97110; 97116; 97161; 97164; 97165; 97530; 97535; 99212; 99285; A9270; C1750; G0257; G0378; G0463; J0610; J0690; J0696; J1644; J1756; J1815; J2250; J2405; J2704; J3010; J3420; J3475; J7030; J7040; J7050; J7070; J8540; P9016; P9017; P9045; P9047; Q5105

== ENCOUNTER 2021-08-09 08:16 | Inpatient (IN) | payer MEDICARE, MEDICAID, SELFPAY ==
[2021-08-09] VITALS (29 sets, daily range): BP systolic 138–195; BP diastolic 56–107; PULSE 70–95; RESP 12–28; TEMP 36.3–37.3; O2SAT 93–100; BMI 10.0; BMI 41.3
--- NOTE | 2021-08-09 08:18 | ECG_ITS ---
Measurements Intervals [place] Rate: 80 P: 5 MA: 157 QRS: -76 QRSD: 152 T: 14 QT: 410 QTc: 474 Interpretive Statements SINUS RHYTHM RIGHT BUNDLE BRANCH BLOCK [120+ ms QRS DURATION, UPRIGHT V1, 40+ ms S IN I/aVL/V4/V5/V6] LEFT ANTERIOR FASCICULAR BLOCK [QRS AXIS <= -45, QR IN I, RS IN II] COMPARED TO ECG 08/08/2021 16:11:36 NO SIGNIFICANT CHANGES Electronically Signed On 08-09-2021 17:58:55 CDT by Aziza Pittman M.D.
--- NOTE | 2021-08-09 08:23 | ED.WEAKNESS ---
HPI - Weakness General Chief complaint: Weakness Stated complaint: weakness Time Seen by Provider: 08/09/21 08:18 History of Present Illness HPI Narrative: Patient with a history of multiple myeloma chronic kidney disease dialysis dependent Friday paroxysmal Ludin mcneill presents with weakness. Patient was recently admitted to the hospital for her chronic kidney disease requiring dialysis as well as anemia she was discharged yesterday as she is feeling well this morning she tried got a bad was feeling a little slid out of her bed onto the ground because she is too weak to stand. She called EMS who did a lift assist and transported her to the ER for further evaluation. Patient denied prodrome prior to fall such as chest pain lightheadedness dizziness sure she is felt too weak to stand. She denies striking her head or any loss of consciousness. She denies any focal numbness or weakness. She reports when she was getting discharged there is conversations about possibly going to a retirement facility but she felt strongly wanted to manage her symptoms at home. Related Data Home Medications Medication Instructions Recorded Confirmed cholecalciferol (vitamin D3) 1,250 50,000 unit PO WEEKLY 02/12/19 08/09/21 mcg (50,000 unit) capsule cyanocobalamin (vitamin B-12) 1,000 mcg subcut MONTHLY 02/12/19 08/09/21 1,000 mcg/mL injection kit isosorbide mononitrate 30 mg 30 mg PO DAILY 02/12/19 08/09/21 tablet,extended release 24 hr oxybutynin chloride 10 mg 10 mg PO DAILY 02/12/19 08/09/21 tablet,extended release 24 hr pantoprazole 40 mg tablet,delayed 40 mg PO QAM 02/12/19 08/09/21 release pregabalin 25 mg capsule (Lyrica) 75 mg PO DAILY 02/12/19 08/09/21 ferrous sulfate 325 mg (65 mg 650 mg PO DAILY 08/03/19 08/09/21 iron) tablet albuterol sulfate 90 mcg/actuation 2 puff inhalation Q4H PRN 12/09/19 08/09/21 aerosol inhaler (ProAir HFA) Shortness Of Breath sertraline 50 mg tablet (Zoloft) 50 mg PO HS 12/09/19 08/09/21 albuterol sulfate 0.63 mg/3 mL 0.63 mg inhalation Q6H PRN wheezes 10/18/20 08/09/21 solution for nebulization aspirin 81 mg tablet 81 mg PO DAILY 10/18/20 08/09/21 cetirizine 10 mg tablet (Zyrtec) 10 mg PO DAILY PRN Allergy Symptoms 10/18/20 08/09/21 icosapent ethyl 1 gram capsule 1 g PO QID 10/18/20 08/09/21 (Vascepa) mometasone-formoterol HFA 200 2 puff inhalation BID 10/18/20 08/09/21 mcg-5 mcg/actuation aerosol inhaler (Dulera) tiotropium bromide 1.25 2 puff inhalation DAILY 10/18/20 08/09/21 mcg/actuation mist for inhalation (Spiriva Respimat) magnesium oxide 400 mg PO BID 02/13/21 08/09/21 calcitriol 0.25 mcg capsule 0.25 mcg PO DAILY 04/10/21 08/09/21 montelukast 10 mg tablet 10 mg PO DAILY PRN Allergy Symptoms 04/15/21 08/09/21 (Singulair) fenofibrate 54 mg tablet 54 mg PO DAILY 04/24/21 08/09/21 Allergies Allergy/AdvReac Type Severity Reaction Status Date / Time celecoxib Allergy Intermediate TACHYCARDIA Verified 08/09/21 13:20 iohexol Allergy Intermediate Hives/Red Verified 08/09/21 13:20 [From contrast - CT, X-RAY] face ibuprofen Allergy Unknown Other Verified 08/09/21 13:20 iodine Allergy Unknown Other Verified 08/09/21 13:20 midazolam Allergy Unknown AMNESIA Verified 08/09/21 13:20 AFTER SURGERY Penicillins Allergy Unknown Other Verified 08/09/21 13:20 Review of Systems Review of Systems: CONSTITUTIONAL: Denies fever, chills, or sweats. EYES: Denies visual changes, redness, or discharge. ENT: Denies rhinorrhea, congestion, sore throat, or otalgia. CARDIOVASCULAR: Denies chest pain, palpitations, or edema. RESPIRATORY: Denies cough or dyspnea. GASTROINTESTINAL: Denies abdominal pain, nausea, vomiting, or diarrhea. GENITOURINARY: Denies dysuria or hematuria. SKIN: Denies rash or itching. MUSCULOSKELETAL: Denies back pain, joint pain, or myalgia. NEUROLOGIC: Denies headache, numbness, dizziness, or focal weakness. PSYCHIATRIC: Denies anxiety or depre
[2021-08-09 08:41] LABS: Basophils Percent Auto 0.6 % (0.2-1.2); Eosinophils Absolute Auto 0.2 K/mm3 (0-0.3); Eosinophils Percent Auto 5.7 % (0-4.4); Hematocrit 30.5 % (37.0-47.0); Hemoglobin 9.5 g/dL (12.0-15.0); Immature Granulocyte Absolute 0.14 K/mm3 (0.00-0.031); Immature Platelet Fraction Pct 7.9 % (0.9-11.2); Mean Corpuscular HGB Conc 31.1 g/dl (32-36); Mean Corpuscular Volume 96.2 fl (80-100); Mean Platelet Volume 11.6 fl (7.4-10.4); Monocytes Absolute Auto 0.3 K/mm3 (0.1-0.6); Monocytes Percent Auto 9.3 % (2.6-8.5); Neutrophils Absolute Auto 2.2 K/mm3 (1.3-6.7); Neutrophils Percent Auto 63.4 % (45.5-73.1); Platelet Count Result 54 k/mm3 (150-375); Red Blood Count 3.17 M/mm3 (4.2-5.4); Red Cell Distribution Width 16.1 % (11.5-14.5); White Blood Count 3.5 K/mm3 (4.5-10.0)
[2021-08-09 08:50] LABS: Albumin Level 4.3 g/dL (3.5-5.1); Alkaline Phosphatase 35 U/L (38-126); Anion Gap 12 mmol/L (8-16); Aspartate Amino Transferase 10 U/L (14-36); Bilirubin,Total 0.5 mg/dL (0.2-1.3); Blood Urea Nitrogen 39 mg/dL (7-17); Calcium 8.7 mg/dL (8.4-10.2); Carbon Dioxide 23 mmol/L (22-30); Chloride 104 mmol/L (98-107); Estimated CRCL calculation 9 ml/min; Estimated Glomerular Filt Rate 6; Glucose 111 mg/dL (65-110); Magnesium 1.8 mg/dL (1.6-2.3); Potassium 4.2 mmol/L (3.4-5.0); Sodium 139 mmol/L (137-145)
[2021-08-09 09:56] LABS: Add Urine Microscopic? YES; Appearance Urine Slightly Cloudy (Clear); Bilirubin Urine Negative (Negative); Blood Urine 1+ (Negative); Color Urine Yellow (Yellow); Glucose Urine UA Negative (Negative); Ketones Urine Negative (Negative); Leukocyte Esterase Ur 3+ LEU/UL (Negative); Nitrate Urine Positive (Negative); Protein Urine 2+ mg/dL (Negative); Specific Grav Ur 1.015 (1.001-1.035); Urobilinogen Urine 0.2 mg/dL (<2.0)
[2021-08-09 10:11] LABS: Squamous Epithelial Cell Urine Rare /hpf (Few); WBC Clumps Urine Present /HPF; WBC Urine >75 /hpf
--- NOTE | 2021-08-09 11:15 | PC.NURSE ---
patient report given to KENNETH He. All questions answered and care of patient transferred.
[2021-08-09 11:19] LABS: Alanine Aminotransferase < 6 U/L (6-35)
--- NOTE | 2021-08-09 12:46 | PC.NURSE ---
spoke with mariel in dialysis and she would like patient brought there before going to room
--- NOTE | 2021-08-09 12:52 | PC.NURSE ---
spoke with LILY chen, she is requesting [facility] or [facility] for [facility], in that order. she states that [facility] had called her and she told them that they were not interested in that facility at that time. Spoke with ED Proof Carrier and she will return call to freelance copywriter to discuss further.
--- NOTE | 2021-08-09 13:18 | ADMGEN ---
This patient, Jaimie Nix, was admitted to 3 Med Surg Room 300-01. Patient went straight from ER to dialysis. Report received from KENNETH He. Patient/family oriented to hospital policies and general routines including ID bracelet, bed and alarms, visiting hours, pain management, procedures, bathroom and other care routines, personal items, smoking policy, room service/diet, and visiting hours. Information on how to activate the Rapid Response Team has been discussed. Patient/Family are encouraged to report perceived risks to care and to ask questions if they do not understand what they are told or what they should do.
--- NOTE | 2021-08-09 15:50 | PM.PNNEP ---
Progress Note: A&P Assessment and Plan (1) SOLANGE (acute kidney injury): Code(s): N17.9 - Acute kidney failure, unspecified Status: Acute Assessment and Plan: this is secondary to BIOPSY PROVEN cast nephropathy however, she also had signifiant scarring present (~ 70%) so there may be an element of disease progression as well s/p several sessions of plasmapheresis on last hospitalization HD today and continue /Th/Sat schedule follow trend of labs (in between dialysis) and UOP to assess for potential renal recovery FULL CONSULT to follow Subjective Date/time seen: 08/09/21 15:50 Tolerating dialysis at the time if my visit (seen on HD at 3:35PM); no acute issues/problems voiced; unable to go to outpatient dialysis treatment today and hence getting treatment currently; still feels weak but in no acute distress. Exam Narrative: General: WD/WN female in NAD Heart: normal S1 and S2; no rub Lungs: clear to auscultation Abdomen: soft, nontender, nondistended, positive bowel sounds Extremities: no cyanosis or clubbing; trace edema Skin: warm and intact Objective Data Vital Signs Vital Signs: Vital Signs Temp Pulse Resp BP Pulse Ox O2 Del Method 08/09/21 15:40 95 165/76 H 08/09/21 15:20 91 152/79 H 08/09/21 15:00 89 152/78 H 08/09/21 14:40 84 180/88 H 08/09/21 14:20 84 176/87 H 08/09/21 14:00 83 195/99 H 08/09/21 13:40 84 167/75 H 08/09/21 13:20 75 167/107 H 08/09/21 13:00 79 138/75 08/09/21 13:00 36.6 C 76 18 148/93 H 08/09/21 13:00 84 22 H 160/68 H 96 08/09/21 10:21 96 08/09/21 10:03 156/71 H 97 08/09/21 10:00 97 08/09/21 09:45 83 23 H 08/09/21 09:34 Room Air 08/09/21 09:34 Room Air 08/09/21 09:30 92 19 97 08/09/21 09:15 78 18 98 08/09/21 09:04 81 17 08/09/21 09:03 80 17 168/56 H 99 08/09/21 08:45 77 21 H 98 08/09/21 08:39 79 08/09/21 08:30 79 28 H 08/09/21 08:23 80 17 163/66 H 97 08/09/21 08:21 80 13 96 08/09/21 08:06 36.9 C 79 12 163/66 H 98 Room Air Intake/Output Intake/Output: Intake & Output 08/06/21 08/07/21 08/08/21 08/09/21 23:59 23:59 23:59 23:59 Intake Total 50 Output Total 3225 Balance -3175 Meds/Results Medications: Active Medications Generic Name Dose Route Start Last Admin Trade Name Freq PRN Reason Stop Dose Admin Albuterol 2 puff 08/09/21 16:17 Albuterol Sulfate (*Sp) Aerosol 1 Puff INHALATION Q4H PRN Shortness Of Breath Amlodipine Besylate 5 mg 08/10/21 09:00 Amlodipine Besylate 5 Mg Tablet PO QAM [facility] Apixaban 2.5 mg 08/09/21 17:00 Apixaban 2.5 Mg Tablet PO BID [facility] Aspirin 81 mg 08/10/21 09:00 Aspirin 81 Mg Chewable Tablet PO DAILY [facility] Calcitriol 0.25 mcg 08/10/21 09:00 Calcitriol 0.25 Mcg Capsule PO DAILY [facility] Cyanocobalamin 1,000 mcg 09/08/21 09:00 Cyanocobalamin Inj 1,000 Mcg/Ml Vial SUB-Q MONTHLY [facility] Cyclobenzaprine HCl 10 mg 08/09/21 16:17 Cyclobenzaprine Hcl 10 Mg Tablet PO Q12HR PRN muscle spasm Docusate Sodium 100 mg 08/09/21 17:00 Docusate Sodium 100 Mg Capsule PO BID [facility] Ergocalciferol 50,000 unit 08/17/21 09:00 Ergocalciferol 50,000 Unit Capsule PO Fr@0900 [facility] Ergocalciferol 50,000 unit 08/10/21 09:00 Ergocalciferol 50,000 Unit Capsule PO Fr@0900 [facility] Fenofibrate 48 mg 08/10/21 09:00 Fenofibrate,Micronized 48 Mg Tablet PO QAM [facility] Ferrous Sulfate 648 mg 08/10/21 14:00 Ferrous Sulfate 324 Mg Tablet PO 1400 [facility] Fish Oil 1 gm 08/09/21 17:00 [place] 3 Polyunsat Fatty Acids 1 Gm Cap PO QID [facility] Ceftriaxone Sodium/Dextrose 1 gm in 50 mls @ 100 mls/hr 08/10/21 10:00 Rocephin 1 Gm/D5w 50 Ml IVPB Q24H [facility] Insulin Glargine 40 units 08/09/21 21:00 Insul
--- NOTE | 2021-08-09 16:08 | PM.IMHP ---
H&P: HPI History of Present Illness Date/Time: 08/09/21 16:08 Chief Complaint: fall Narrative: this is 70 year of a female who was recently discharged yesterday and was supposed to go for dialysis today at [facility] however she was feeling weak this morning and slid out of her bed and was unable to stand. She then called EMS who brought her to the ER for evaluation. She denied any symptoms prior to the fall the chest pain lightheadedness or dizziness. She states that she was too weak to stand. After discharged yesterday see HD went to a store and 1 back home. She denies hitting her head or losing consciousness. She denies any cough. She does have some lower abdominal discomfort for the has been having for past few days. She was checked in the ER and was noted to have normal vitals. Or at least stable. her labs were stable as well. She did test positive for UTI and was given Rocephin in the ER. Given weakness and inability to get around at home need for rehabilitation was entertained for which she is getting admitted. She denies any fever chills Review of Systems Review of Systems: - CONSTITUTIONAL: Denies weight loss, fever and chills. - HEENT: Denies changes in vision and hearing - RESPIRATORY: Denies SOB and cough. - CV: Denies palpitations and CP. - GI: Denies abdominal pain, nausea, vomiting and diarrhea. - : Denies dysuria and urinary frequency. - MSK: Denies myalgia and joint pain. - SKIN: Denies rash and pruritus. - NEUROLOGICAL: Denies headache and syncope. reports generalized weakness - PSYCHIATRIC: Denies recent changes in mood. Denies anxiety and depression. [facility] Past Medical History Medical History Acute neck pain Cervical spondylosis with radiculopathy Chronic anemia Chronic kidney disease, stage 3 Coronary artery disease Degenerative disc disease Dyslipidemia Gastric polyp Gastroesophageal reflux disease Gout History of MRSA infection Hypertension Insulin dependent type 2 diabetes mellitus Lichen sclerosus Macular degeneration Mixed stress and urge urinary incontinence Multiple myeloma Obstructive sleep apnea on CPAP Osteoarthritis Paroxysmal atrial fibrillation Right bundle branch block Surgical History Surgical History History of arthroscopy of left knee History of bilateral knee arthroplasty History of bladder surgery Status post sling and InterStim. History of cardiac catheterization History of cataract extraction History of cholecystectomy History of coronary artery stent placement History of spinal surgery x4 Status post bilateral foot surgery Bone spur removal. Family History Family History Mother Hypertension, Onset Age: 86 Family history of elevated blood lipids, Onset Age: 86 Patient's mother is Grandparent Cerebrovascular accident, Onset Age: 76 Diabetes mellitus, Onset Age: 84 Father Family history of coronary artery disease, Onset Age: 49 Patient's father is Social History Social History Social History: Surrogate decision maker: Kristinemecry Tolliver, sister. Code status: Full code. Smoking status: Never smoker Second hand tobacco smoke exposure: No Alcohol intake: never Substance use: never Substance use type: does not use Spiritual care concerns: No Meds Home Medications and Allergies Home Medications Medication Instructions Recorded Confirmed Type cholecalciferol (vitamin D3) 1,250 50,000 unit PO WEEKLY 02/12/19 08/09/21 History mcg (50,000 unit) capsule cyanocobalamin (vitamin B-12) 1,000 mcg subcut MONTHLY 02/12/19 08/09/21 History 1,000 mcg/mL injection kit isosorbide mononitrate 30 mg 30 mg PO DAILY 02/12/19 08/09/21 History tablet,extended release 24
--- NOTE | 2021-08-09 16:31 | PC.NURSE ---
Patient moved to room 300 after her dialysis treatment at 1620.
[2021-08-09] MEDS: OMEGA 3 POLYUNSAT FATTY ACIDS 1 GM CAP PO ×2 (18:39→20:37)
[2021-08-09] MEDS: APIXABAN 2.5 MG TABLET PO (18:39)
[2021-08-09] MEDS: MAGNESIUM OXIDE 400 MG TABLET PO (18:39)
[2021-08-09] MEDS: DOCUSATE SODIUM 100 MG CAPSULE PO (18:41)
[2021-08-09] MEDS: FLUTICASONE/SALMETEROL 230-21 MCG INHALER 1 PUFF 2 PUFF INHALATION (20:08)
[2021-08-09] MEDS: ONDANSETRON INJ 4 MG/2 ML VIAL IV PUSH (20:36)
[2021-08-09] MEDS: METOPROLOL TARTRATE 25 MG TABLET PO (20:37)
[2021-08-09] MEDS: MUPIROCIN 2% OINT 22 GM TUBE 1 APPLIC EACH NARE (20:37)
[2021-08-09] MEDS: PRIMIDONE 50 MG TABLET 100 MG PO (20:38)
[2021-08-09] MEDS: SERTRALINE HCL 50 MG TABLET PO (20:38)
[2021-08-09] MEDS: INSULIN GLARGINE (*BKC) 100 UNITS/ML 40 UNITS SUB-Q (20:57)
[2021-08-09 21:38] LABS: Glucose Point of Care 136 mg/dl (65-105)
[2021-08-09] MEDS: WATER FOR IRRIGATION, STERILE 1,000 ML BOTTLE 1000 ML (23:15)
[2021-08-10] VITALS (8 sets, daily range): BP systolic 113–131; BP diastolic 51–56; PULSE 65–87; RESP 16–20; TEMP 36.2–36.6; O2SAT 93–98
[2021-08-10 08:38] LABS: Glucose Point of Care 109 mg/dl (65-105)
[2021-08-10] MEDS: DOCUSATE SODIUM 100 MG CAPSULE PO ×2 (08:47→17:43)
[2021-08-10] MEDS: PANTOPRAZOLE 40 MG TABLET PO (08:47)
[2021-08-10] MEDS: APIXABAN 2.5 MG TABLET PO ×2 (08:47→17:44)
[2021-08-10] MEDS: calcitrioL 0.25 MCG CAPSULE PO (08:47)
[2021-08-10] MEDS: PRIMIDONE 50 MG TABLET PO (08:47)
[2021-08-10] MEDS: OMEGA 3 POLYUNSAT FATTY ACIDS 1 GM CAP PO ×4 (08:47→20:32)
[2021-08-10] MEDS: ASPIRIN 81 MG CHEWABLE TABLET PO (08:48)
[2021-08-10] MEDS: ISOSORBIDE MONONITRATE 30 MG TAB.ER.24H PO (08:48)
[2021-08-10] MEDS: FENOFIBRATE,MICRONIZED 48 MG TABLET PO (08:48)
[2021-08-10] MEDS: LORATADINE 10 MG TABLET PO (08:48)
[2021-08-10] MEDS: MAGNESIUM OXIDE 400 MG TABLET PO ×2 (08:48→17:44)
[2021-08-10] MEDS: amLODIPine BESYLATE 5 MG TABLET PO (08:48)
[2021-08-10] MEDS: METOPROLOL TARTRATE 25 MG TABLET PO ×2 (08:49→20:32)
[2021-08-10] MEDS: PREGABALIN (*CRX) 75 MG CAPSULE PO (08:51)
[2021-08-10] MEDS: FLUTICASONE/SALMETEROL 230-21 MCG INHALER 1 PUFF 2 PUFF INHALATION (09:23)
[2021-08-10] MEDS: UMECLIDINIUM BROMIDE 62.5 MCG ELLIPTA 1 PUFF INHALATION (09:23)
[2021-08-10] MEDS: polyethylene glycoL 3350 17 GM POWD.PACK PO (09:24)
[2021-08-10] MEDS: ERGOCALCIFEROL 50,000 UNIT CAPSULE 50000 UNITS PO (10:32)
[2021-08-10 12:04] LABS: Glucose Point of Care 285 mg/dl (65-105)
--- NOTE | 2021-08-10 12:23 | P.CONNP_ITS ---
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 * however, she also had signifiant scarring present (~ 70%) so there may be an element of disease progression as well * s/p several sessions of plasmapheresis * HD yesterday and plan HD tomorrow * follow trend of labs (in between dialysis) and UOP to assess for potential renal recovery (2) Chronic kidney disease, stage IV (severe): Code(s): N18.4 - Chronic kidney disease, stage 4 (severe) Status: Chronic Assessment and Plan: * baseline creatinine seems to run ~ 1.5 - 2.0mg/dl * 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 Finch as an outpatient (5) Chronic anemia: Code(s): D64.9 - Anemia, unspecified Status: Acute Assessment and Plan: * likely related to myeloma and CKD * Epogen with HD * follow trend of H/H (6) Hypertension: Code(s): I10 - Essential (primary) hypertension Status: Chronic Assessment and Plan: * reasonable control at this time * follow trend of hemodynamics (7) Diabetes: Qualifiers: Diabetes mellitus complication status: without complication Diabetes mellitus intermediate teacher insulin use: without residential use Diabetes mellitus type: type 2 Qualified Code(s): E11.9 - Type 2 diabetes mellitus without complications Code(s): E11.9 - Type 2 diabetes mellitus without complications Status: Chronic Assessment and Plan: * follow accuchecks * glycemic control (8) Weakness: Code(s): R53.1 - Weakness Status: Acute Assessment and Plan: * presumably due to deconditioning on last hospitalization and UTI * PT/OT as tolerated * suspect will need placement on discharge Will continue to follow. History of Present Illness Reason for Consult Consult date: 08/10/21 Reason for consult: acute renal failure (on CKD requiring dialysis) Chief Complaint Chief complaint: weakness History of Present Illness Narrative: The patient is a 70-year-old female with a past medical history is outlined below who presented to [facility] Emergency room to profound weakness and fatigue. It should be noted the patient was just recently discharged yesterday after all long hospitalization regarding her acute kidney injury on top of her chronic kidney disease secondary to biopsy-proven cast nephropathy/myeloma kidney with the necessity for renal replacement therapy/dialysis. The patient was apparently supposed to go to her 1st outpatient dialysis treatment today however when she got up this morning, she was quite weak and unable to get out of bed. She had apparently slight herself out of bed but she was unable to stand. She subsequent called EMS and she was brought to the ER for further evaluation
--- NOTE | 2021-08-10 12:23 | PM.CNNEP ---
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 however, she also had signifiant scarring present (~ 70%) so there may be an element of disease progression as well s/p several sessions of plasmapheresis HD yesterday and plan HD tomorrow follow trend of labs (in between dialysis) and UOP to assess for potential renal recovery (2) Chronic kidney disease, stage IV (severe): Code(s): N18.4 - Chronic kidney disease, stage 4 (severe) Status: Chronic Assessment and Plan: baseline creatinine seems to run ~ 1.5 - 2.0mg/dl 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 Finch as an outpatient (5) Chronic anemia: Code(s): D64.9 - Anemia, unspecified Status: Acute Assessment and Plan: likely related to myeloma and CKD Epogen with HD follow trend of H/H (6) Hypertension: Code(s): I10 - Essential (primary) hypertension Status: Chronic Assessment and Plan: reasonable control at this time follow trend of hemodynamics (7) Diabetes: Qualifiers: Diabetes mellitus complication status: without complication Diabetes mellitus longterm insulin use: without longterm use Diabetes mellitus type: type 2 Qualified Code(s): E11.9 - Type 2 diabetes mellitus without complications Code(s): E11.9 - Type 2 diabetes mellitus without complications Status: Chronic Assessment and Plan: follow accuchecks glycemic control (8) Weakness: Code(s): R53.1 - Weakness Status: Acute Assessment and Plan: presumably due to deconditioning on last hospitalization and UTI PT/OT as tolerated suspect will need placement on discharge Will continue to follow. History of Present Illness Reason for Consult Consult date: 08/10/21 Reason for consult: acute renal failure (on CKD requiring dialysis) Chief Complaint Chief complaint: weakness History of Present Illness Narrative: The patient is a 70-year-old female with a past medical history is outlined below who presented to [facility] Emergency room to profound weakness and fatigue. It should be noted the patient was just recently discharged yesterday after all long hospitalization regarding her acute kidney injury on top of her chronic kidney disease secondary to biopsy-proven cast nephropathy/myeloma kidney with the necessity for renal replacement therapy/dialysis. The patient was apparently supposed to go to her 1st outpatient dialysis treatment today however when she got up this morning, she was quite weak and unable to get out of bed. She had apparently slight herself out of bed but she was unable to stand. She subsequent called EMS and she was brought to the ER for further evaluation Workup and evaluation emergency room demonstrated the patient be hemodynamically stable with routine blood tests consistent with her chronic kidney disease. Her urinalysis was somewhat suggestive of a urinary tract infection and there was some concern that this may be the potential reason for her severe weakness/fatigue. She gave no complaints with regard to chest pain, shortness of breath, dizziness, lightheadedness, or palpitations. Appropriate cultures were obtained and she was started on IV antibiotic therapy for her pr
[2021-08-10] MEDS: MUPIROCIN 2% OINT 22 GM TUBE 1 APPLIC EACH NARE ×2 (12:24→20:32)
--- NOTE | 2021-08-10 12:28 | PM.IMPN ---
Progress Note: A&P Assessment and Plan (1) Weakness: Code(s): R53.1 - Weakness Status: Acute (2) Chronic kidney disease, stage IV (severe): Code(s): N18.4 - Chronic kidney disease, stage 4 (severe) Status: Chronic (3) Tremors of nervous system: Code(s): R25.1 - Tremor, unspecified Status: Acute (4) Urinary tract infection: Code(s): N39.0 - Urinary tract infection, site not specified Status: Acute (5) Paroxysmal atrial fibrillation: Code(s): I48.0 - Paroxysmal atrial fibrillation Status: Acute (6) Essential and other specified forms of tremor: Code(s): G25.0 - Essential tremor; G25.2 - Other specified forms of tremor Status: Acute (7) Hypertension: Code(s): I10 - Essential (primary) hypertension Status: Chronic (8) Dyslipidemia: Code(s): E78.5 - Hyperlipidemia, unspecified Status: Acute (9) Insulin dependent type 2 diabetes mellitus: Code(s): E11.9 - Type 2 diabetes mellitus without complications; Z79.4 - alf (current) use of insulin Status: Acute (10) Obstructive sleep apnea on CPAP: Code(s): G47.33 - Obstructive sleep apnea (adult) (pediatric); Z99.89 - Dependence on other enabling machines and devices Status: Acute (11) Multiple myeloma: Code(s): C90.00 - Multiple myeloma not having achieved remission Status: Chronic (12) Thrombocytopenia: Code(s): D69.6 - Thrombocytopenia, unspecified Status: Acute Plan # generalized weakness with fall without any head injury . PT OT evaluated. See dictation. Care coordination consulted. # UTI symptomatic also. Follow urine culture. Rocephin started. Await urinary culture # end-stage renal disease on hemodialysis secondary to progressive multiple myeloma biopsy-proven last admission. She also treated with Plasmapheresis during that admission. Started on hemodialysis last admission. Will continue with Friday schedule. Nephrology consultation for the same. # chronic anemia stable count no signs of bleeding. Procrit injection as an outpatient basis along with oral iron # multiple myeloma: She was treated with 3 doses of dexamethasone and plasmapheresis during her recent stay. She is planned to be treated with Velcade, Cytoxan and dexamethasone as an outpatient basis. Acute renal failure likely due to myeloma kidney biopsy-proven cast nephropathy noted. She was on lenalidomide prior to this for multiple myeloma however is planned to start on Velcade due to new renal impairment # insulin-dependent diabetes mellitus continue on basal insulin and sliding scale Accu-Cheks with hypoglycemic protocol. # history sleep apnea on CPAP will continue CPAP during hospital stay # hypertension losartan has been discontinued. Resume amlodipine # paroxysmal atrial fibrillation : Diagnosed 04/2021. At that had any recurrence objectively. Decided on Eliquis 2.5 mg b.i.d. for stroke prophylaxis after discussion with the patient. Which will be continued # DVT prophylaxis Eliquis # code status full code Subjective Date/time seen: 08/10/21 12:28 Interval history: HPI:this is 70 year of a female who was recently discharged yesterday and was supposed to go for dialysis today at [facility] however she was feeling weak this morning and slid out of her bed and was unable to stand.? She then called EMS who brought her to the ER for evaluation.? She denied any symptoms prior to the fall the chest pain lightheadedness or dizziness.? She states that she was too weak to stand.? After discharged yesterday see HD went to a store and 1 back home.? She denies hitting her head or losing consciousness.? She denies any cough.? She does have some lower abdominal discomfort for the has been having for past few days.? She was checked in the ER and was noted to have normal vitals.? Or at least stable. ? her labs were stable as well.? She did test positi
[2021-08-10] MEDS: FERROUS SULFATE 324 MG TABLET 648 MG PO (15:03)
[2021-08-10 17:09] LABS: Glucose Point of Care 246 mg/dl (65-105)
[2021-08-10 19:58] LABS: Glucose Point of Care 203 mg/dl (65-105)
[2021-08-10] MEDS: INSULIN GLARGINE (*BKC) 100 UNITS/ML 40 UNITS SUB-Q (20:32)
[2021-08-10] MEDS: PRIMIDONE 50 MG TABLET 100 MG PO (20:32)
[2021-08-10] MEDS: SERTRALINE HCL 50 MG TABLET PO (20:32)
[2021-08-11] VITALS (23 sets, daily range): BP systolic 123–171; BP diastolic 46–99; PULSE 63–135; RESP 16–18; TEMP 36–36.9; O2SAT 92–98
--- NOTE | 2021-08-11 03:24 | PCRCNOTE ---
Window of time for administration has passed. See next scheduled administration.
[2021-08-11 06:04] LABS: Hematocrit 28.3 % (37.0-47.0); Hemoglobin 8.8 g/dL (12.0-15.0); Immature Platelet Fraction Pct 8.5 % (0.9-11.2); Mean Corpuscular HGB Conc 31.1 g/dl (32-36); Mean Corpuscular Hemoglobin 29.6 pg (26-34); Mean Corpuscular Volume 95.3 fl (80-100); Mean Platelet Volume 12.5 fl (7.4-10.4); Platelet Count Result 56 k/mm3 (150-375); Red Blood Count 2.97 M/mm3 (4.2-5.4); Red Cell Distribution Width 16.3 % (11.5-14.5); White Blood Count 4.3 K/mm3 (4.5-10.0)
[2021-08-11 06:18] LABS: Anion Gap 13 mmol/L (8-16); Blood Urea Nitrogen 43 mg/dL (7-17); Calcium 8.6 mg/dL (8.4-10.2); Carbon Dioxide 25 mmol/L (22-30); Chloride 100 mmol/L (98-107); Estimated CRCL calculation 9 ml/min; Estimated Glomerular Filt Rate 6; Glucose 121 mg/dL (65-110); Potassium 4.2 mmol/L (3.4-5.0); Sodium 138 mmol/L (137-145)
[2021-08-11 07:40] LABS: Glucose Point of Care 125 mg/dl (65-105)
[2021-08-11 07:52] LABS: Band Neutrophils Percent 8 % (0-6); Lymphocytes Absolute Manual 0.73 K/mm3 (1.1-4.5); Lymphocytes Percent Manual 17 % (18-44); Monocytes Absolute Manual 0.17 K/mm3 (0.1-0.90); Monocytes Percent Manual 4 % (3-9); Neutrophils Absolute Manual 2.79 K/mm3 (1.7-7.2); Neutrophils Percent Manual 57 % (46-73); Platelet Estimate Decreased (Adequate); Total Cells Counted 100
[2021-08-11 07:53] LABS: Eosinophils Absolute Manual 0.34 K/mm3 (0.02-0.5); Eosinophils Percent Manual 8 % (0-4); Metamyelocytes Percent 6 %; Nucleated Red Blood Cells 1 %
[2021-08-11] MEDS: FLUTICASONE/SALMETEROL 230-21 MCG INHALER 1 PUFF 2 PUFF INHALATION ×2 (08:12→20:15)
[2021-08-11] MEDS: UMECLIDINIUM BROMIDE 62.5 MCG ELLIPTA 1 PUFF INHALATION (08:13)
--- NOTE | 2021-08-11 08:45 | PC.NURSE ---
Patient transferred to Dialysis at 0845 via bed
--- NOTE | 2021-08-11 09:00 | PCPTNOTE ---
Attempted to see patient for Physical Therapy session; patient out of room for dialysis at this time.
--- NOTE | 2021-08-11 10:21 | PM.IMPN ---
Progress Note: A&P Assessment and Plan (1) Weakness: Code(s): R53.1 - Weakness Status: Acute (2) Chronic kidney disease, stage IV (severe): Code(s): N18.4 - Chronic kidney disease, stage 4 (severe) Status: Chronic (3) Tremors of nervous system: Code(s): R25.1 - Tremor, unspecified Status: Acute (4) Urinary tract infection: Code(s): N39.0 - Urinary tract infection, site not specified Status: Acute (5) Paroxysmal atrial fibrillation: Code(s): I48.0 - Paroxysmal atrial fibrillation Status: Acute (6) Essential and other specified forms of tremor: Code(s): G25.0 - Essential tremor; G25.2 - Other specified forms of tremor Status: Acute (7) Hypertension: Code(s): I10 - Essential (primary) hypertension Status: Chronic (8) Dyslipidemia: Code(s): E78.5 - Hyperlipidemia, unspecified Status: Acute (9) Insulin dependent type 2 diabetes mellitus: Code(s): E11.9 - Type 2 diabetes mellitus without complications; Z79.4 - half-way (current) use of insulin Status: Acute (10) Obstructive sleep apnea on CPAP: Code(s): G47.33 - Obstructive sleep apnea (adult) (pediatric); Z99.89 - Dependence on other enabling machines and devices Status: Acute (11) Multiple myeloma: Code(s): C90.00 - Multiple myeloma not having achieved remission Status: Chronic (12) Thrombocytopenia: Code(s): D69.6 - Thrombocytopenia, unspecified Status: Acute Plan # generalized weakness with fall without any head injury . PT OT evaluated. See dictation. Care coordination consulted. # UTI symptomatic also. Follow urine culture. Rocephin started. Urine culture grew Pseudomonas aeruginosa. Will change ceftriaxone to cefepime. Concern about urinary retention due to her oxybutynin. I believe her E UTI is the primary culprit for this rather than oxybutynin that she has been taking for several years. Will stop oxygen for now and reassess her need for her overactive bladder diagnosis as an outpatient basis. # end-stage renal disease on hemodialysis secondary to progressive multiple myeloma biopsy-proven last admission. She also treated with Plasmapheresis during that admission. Started on hemodialysis last admission. Will continue with Friday schedule. Nephrology consultation for the same. # chronic anemia stable count no signs of bleeding. Procrit injection as an outpatient basis along with oral iron # multiple myeloma: She was treated with 3 doses of dexamethasone and plasmapheresis during her recent stay. She is planned to be treated with Velcade, Cytoxan and dexamethasone as an outpatient basis. Acute renal failure likely due to myeloma kidney biopsy-proven cast nephropathy noted. She was on lenalidomide prior to this for multiple myeloma however is planned to start on Velcade due to new renal impairment # insulin-dependent diabetes mellitus continue on basal insulin and sliding scale Accu-Cheks with hypoglycemic protocol. # history sleep apnea on CPAP will continue CPAP during hospital stay # hypertension losartan has been discontinued. Resume amlodipine # paroxysmal atrial fibrillation : Diagnosed 04/2021. At that had any recurrence objectively. Decided on Eliquis 2.5 mg b.i.d. for stroke prophylaxis after discussion with the patient. Which will be continued # DVT prophylaxis Eliquis # code status full code Subjective Date/time seen: 08/11/21 10:21 Interval history: HPI:this is 70 year of a female who was recently discharged yesterday and was supposed to go for dialysis today at [facility] however she was feeling weak this morning and slid out of her bed and was unable to stand.? She then called EMS who brought her to the ER for evaluation.? She denied any symptoms prior to the fall the chest pain lightheadedness or dizziness.? She states that she was too weak to stand.? After dischar
[2021-08-11] MEDS: EPOETIN ALFA-EPBX 10,000 UNITS/ML VIAL 10000 UNITS IV PUSH (10:51)
[2021-08-11 11:32] LABS: Glucose Point of Care 151 mg/dl (65-105)
--- NOTE | 2021-08-11 12:09 | PM.PNNEP ---
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 however, she also had signifiant scarring present (~ 70%) so there may be an element of disease progression as well s/p several sessions of plasmapheresis on last hospitalization HD today and continue T/T/S dialysis schedule follow trend of labs (in between dialysis) and UOP to assess for potential renal recovery (2) Chronic kidney disease, stage IV (severe): Code(s): N18.4 - Chronic kidney disease, stage 4 (severe) Status: Chronic Assessment and Plan: baseline creatinine seems to run ~ 1.5 - 2.0mg/dl 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 Finch as an outpatient (5) Chronic anemia: Code(s): D64.9 - Anemia, unspecified Status: Acute Assessment and Plan: likely related to myeloma and CKD Epogen with HD follow trend of H/H (6) Hypertension: Code(s): I10 - Essential (primary) hypertension Status: Chronic Assessment and Plan: reasonable control at this time follow trend of hemodynamics (7) Diabetes: Qualifiers: Diabetes mellitus complication status: without complication Diabetes mellitus intermediate insulin use: without desktop support consultant use Diabetes mellitus type: type 2 Qualified Code(s): E11.9 - Type 2 diabetes mellitus without complications Code(s): E11.9 - Type 2 diabetes mellitus without complications Status: Chronic Assessment and Plan: follow accuchecks glycemic control (8) Weakness: Code(s): R53.1 - Weakness Status: Acute Assessment and Plan: presumably due to deconditioning on last hospitalization and UTI PT/OT as tolerated suspect will need placement on discharge Will continue to follow. Subjective Date/time seen: 08/11/21 12:09 Tolerating hemodialysis treatment at the time of my visit (seen on HD at 11:50AM); no apparent distress noted; still with some weakness but no worse at this time; no issues/events overnight or earlier this morning; no other acute complaints other than some mild abdominal pain. Exam Narrative: General: WD/WN female in NAD Heart: normal S1 and S2; no rub Lungs: clear to auscultation Abdomen: soft, nontender, nondistended, positive bowel sounds Extremities: no cyanosis or clubbing; trace edema Skin: no rash Objective Data Vital Signs Vital Signs: Vital Signs Temp Pulse Resp BP Pulse Ox O2 Del Method 08/11/21 12:00 82 155/71 H 08/11/21 11:40 83 145/99 H 08/11/21 11:20 78 148/68 H 08/11/21 08:00 94 Room Air 08/11/21 11:00 81 171/72 H 08/11/21 10:40 83 139/56 L 08/11/21 10:20 86 151/68 H 08/11/21 10:00 86 142/56 H 08/11/21 09:40 84 150/61 H 08/11/21 09:20 82 154/63 H 08/11/21 09:05 80 141/61 H 08/11/21 09:00 36.7 C 84 18 141/59 H 08/11/21 08:15 92 Room Air 08/11/21 05:57 36.9 C 65 16 133/51 L 97 08/10/21 21:45 36.4 C 87 16 131/51 L 98 08/10/21 20:32 70 Intake/Output Intake/Output: Intake & Output 08/08/21 08/09/21 08/10/21 08/11/21 23:59 23:59 23:59 23:59 Intake Total 390 1460 980 Output Total 3225 1200 2900 Balance -2835 260 -1920 Meds/Results Medications: Active Medications
--- NOTE | 2021-08-11 12:09 | P.PNNP_ITS ---
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 * however, she also had signifiant scarring present (~ 70%) so there may be an element of disease progression as well * s/p several sessions of plasmapheresis on last hospitalization * HD today and continue T/T/S dialysis schedule * follow trend of labs (in between dialysis) and UOP to assess for potential renal recovery (2) Chronic kidney disease, stage IV (severe): Code(s): N18.4 - Chronic kidney disease, stage 4 (severe) Status: Chronic Assessment and Plan: * baseline creatinine seems to run ~ 1.5 - 2.0mg/dl * 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 Finch as an outpatient (5) Chronic anemia: Code(s): D64.9 - Anemia, unspecified Status: Acute Assessment and Plan: * likely related to myeloma and CKD * Epogen with HD * follow trend of H/H (6) Hypertension: Code(s): I10 - Essential (primary) hypertension Status: Chronic Assessment and Plan: * reasonable control at this time * follow trend of hemodynamics (7) Diabetes: Qualifiers: Diabetes mellitus complication status: without complication Diabetes mellitus retirement insulin use: without intermodal dispatcher use Diabetes mellitus type: type 2 Qualified Code(s): E11.9 - Type 2 diabetes mellitus without complications Code(s): E11.9 - Type 2 diabetes mellitus without complications Status: Chronic Assessment and Plan: * follow accuchecks * glycemic control (8) Weakness: Code(s): R53.1 - Weakness Status: Acute Assessment and Plan: * presumably due to deconditioning on last hospitalization and UTI * PT/OT as tolerated * suspect will need placement on discharge Will continue to follow. Subjective Date/time seen: 08/11/21 12:09 Tolerating hemodialysis treatment at the time of my visit (seen on HD at 11:50AM); no apparent distress noted; still with some weakness but no worse at this time; no issues/events overnight or earlier this morning; no other acute co mplaints other than some mild abdominal pain. Exam Narrative: General: WD/WN female in NAD Heart: normal S1 and S2; no rub Lungs: clear to auscultation Abdomen: soft, nontender, nondistended, positive bowel sounds Extremities: no cyanosis or clubbing; trace edema Skin: no rash Objective Data Vital Signs Vital Signs: Vital Signs Temp Pulse Resp BP Pulse Ox O2 Del Method 08/11/21 12:00 82 155/71 H 08/11/21 11:40 83 145/99 H 08/11/21 11:20 78 148/68 H 08/11/21 08:00 94 Room
--- NOTE | 2021-08-11 12:46 | PCPTNOTE ---
Patient is still out of room at this time for dialysis; unable to see this date for physical therapy
[2021-08-11] MEDS: PANTOPRAZOLE 40 MG TABLET PO (13:20)
[2021-08-11] MEDS: OMEGA 3 POLYUNSAT FATTY ACIDS 1 GM CAP PO ×3 (13:20→20:01)
[2021-08-11] MEDS: FENOFIBRATE,MICRONIZED 48 MG TABLET PO (13:20)
[2021-08-11] MEDS: ASPIRIN 81 MG CHEWABLE TABLET PO (13:21)
[2021-08-11] MEDS: FERROUS SULFATE 324 MG TABLET 648 MG PO (13:21)
[2021-08-11] MEDS: amLODIPine BESYLATE 5 MG TABLET PO (13:21)
[2021-08-11] MEDS: METOPROLOL TARTRATE 25 MG TABLET PO ×2 (13:22→20:01)
[2021-08-11] MEDS: PRIMIDONE 50 MG TABLET PO (13:22)
[2021-08-11] MEDS: polyethylene glycoL 3350 17 GM POWD.PACK PO (13:22)
[2021-08-11] MEDS: calcitrioL 0.25 MCG CAPSULE PO (13:23)
[2021-08-11] MEDS: ISOSORBIDE MONONITRATE 30 MG TAB.ER.24H PO (13:23)
[2021-08-11] MEDS: PREGABALIN (*CRX) 75 MG CAPSULE PO (13:25)
[2021-08-11] MEDS: ONDANSETRON INJ 4 MG/2 ML VIAL IV PUSH ×2 (16:14→23:18)
[2021-08-11 16:42] LABS: Glucose Point of Care 281 mg/dl (65-105)
[2021-08-11] MEDS: MAGNESIUM OXIDE 400 MG TABLET PO (17:43)
[2021-08-11] MEDS: DOCUSATE SODIUM 100 MG CAPSULE PO (17:44)
[2021-08-11] MEDS: CEFEPIME 0.5 GM in DEXTROSE 5% IN WATER 50 ML IVPB (17:44)
[2021-08-11] MEDS: APIXABAN 2.5 MG TABLET PO (17:45)
[2021-08-11] MEDS: INSULIN GLARGINE (*BKC) 100 UNITS/ML 40 UNITS SUB-Q (20:00)
[2021-08-11] MEDS: PRIMIDONE 50 MG TABLET 100 MG PO (20:01)
[2021-08-11] MEDS: MUPIROCIN 2% OINT 22 GM TUBE 1 APPLIC EACH NARE (20:01)
[2021-08-11] MEDS: SERTRALINE HCL 50 MG TABLET PO (20:01)
[2021-08-11 20:07] LABS: Glucose Point of Care 312 mg/dl (65-105)
[2021-08-11] MEDS: CYCLOBENZAPRINE HCL 10 MG TABLET PO (23:18)
[2021-08-12] VITALS (7 sets, daily range): BP systolic 124–139; BP diastolic 45–88; PULSE 72–94; RESP 18–20; TEMP 35.9–37.1; O2SAT 95–99
[2021-08-12 06:14] LABS: Basophils Percent Auto 0.6 % (0.2-1.2); Eosinophils Absolute Auto 0.2 K/mm3 (0-0.3); Eosinophils Percent Auto 6.2 % (0-4.4); Hematocrit 30.3 % (37.0-47.0); Hemoglobin 9.6 g/dL (12.0-15.0); Immature Granulocyte Absolute 0.19 K/mm3 (0.00-0.031); Immature Granulocyte Percent A 5.8 % (0-0.5); Immature Platelet Fraction Pct 9.6 % (0.9-11.2); Lymphocytes Absolute Auto 0.82 K/mm3 (0.9-3.2); Lymphocytes Percent Auto 25.2 % (18.3-44.2); Mean Corpuscular HGB Conc 31.7 g/dl (32-36); Mean Corpuscular Hemoglobin 30.2 pg (26-34); Mean Corpuscular Volume 95.3 fl (80-100); Mean Platelet Volume 11.7 fl (7.4-10.4); Monocytes Absolute Auto 0.3 K/mm3 (0.1-0.6); Monocytes Percent Auto 8.3 % (2.6-8.5); Neutrophils Absolute Auto 1.8 K/mm3 (1.3-6.7); Neutrophils Percent Auto 53.9 % (45.5-73.1); Platelet Count Result 62 k/mm3 (150-375); Red Blood Count 3.18 M/mm3 (4.2-5.4); Red Cell Distribution Width 15.9 % (11.5-14.5); White Blood Count 3.3 K/mm3 (4.5-10.0)
[2021-08-12 06:43] LABS: Alanine Aminotransferase 7 U/L (6-35); Alkaline Phosphatase 50 U/L (38-126); Anion Gap 8 mmol/L (8-16); Aspartate Amino Transferase 12 U/L (14-36); Bilirubin,Total 0.4 mg/dL (0.2-1.3); Blood Urea Nitrogen 24 mg/dL (7-17); Carbon Dioxide 29 mmol/L (22-30); Chloride 98 mmol/L (98-107); Estimated CRCL calculation 12 ml/min; Estimated Glomerular Filt Rate 9; Glucose 176 mg/dL (65-110); Magnesium 2.1 mg/dL (1.6-2.3); Potassium 4.2 mmol/L (3.4-5.0); Sodium 135 mmol/L (137-145)
[2021-08-12 07:58] LABS: Glucose Point of Care 160 mg/dl (65-105)
[2021-08-12 08:25] LABS: Ovalocytes 1+ (NORMAL); Platelet Estimate Decreased (Adequate); Tear Drop Cells 1+ (NORMAL)
[2021-08-12] MEDS: FENOFIBRATE,MICRONIZED 48 MG TABLET PO (08:41)
[2021-08-12] MEDS: polyethylene glycoL 3350 17 GM POWD.PACK PO (08:41)
[2021-08-12] MEDS: PANTOPRAZOLE 40 MG TABLET PO (08:41)
[2021-08-12] MEDS: ISOSORBIDE MONONITRATE 30 MG TAB.ER.24H PO (08:42)
[2021-08-12] MEDS: PRIMIDONE 50 MG TABLET PO (08:42)
[2021-08-12] MEDS: MONTELUKAST SODIUM 10 MG TABLET PO (08:42)
[2021-08-12] MEDS: APIXABAN 2.5 MG TABLET PO ×2 (08:42→17:54)
[2021-08-12] MEDS: METOPROLOL TARTRATE 25 MG TABLET PO ×2 (08:42→21:32)
[2021-08-12] MEDS: ASPIRIN 81 MG CHEWABLE TABLET PO (08:43)
[2021-08-12] MEDS: CYCLOBENZAPRINE HCL 10 MG TABLET PO (08:43)
[2021-08-12] MEDS: amLODIPine BESYLATE 5 MG TABLET PO (08:43)
[2021-08-12] MEDS: DOCUSATE SODIUM 100 MG CAPSULE PO ×2 (08:43→17:54)
[2021-08-12] MEDS: OMEGA 3 POLYUNSAT FATTY ACIDS 1 GM CAP PO ×4 (08:43→21:33)
[2021-08-12] MEDS: calcitrioL 0.25 MCG CAPSULE PO (08:44)
[2021-08-12] MEDS: PREGABALIN (*CRX) 75 MG CAPSULE PO (08:44)
[2021-08-12] MEDS: MUPIROCIN 2% OINT 22 GM TUBE 1 APPLIC EACH NARE ×2 (08:44→21:33)
[2021-08-12] MEDS: FLUTICASONE/SALMETEROL 230-21 MCG INHALER 1 PUFF 2 PUFF INHALATION ×2 (09:15→19:51)
[2021-08-12] MEDS: UMECLIDINIUM BROMIDE 62.5 MCG ELLIPTA 1 PUFF INHALATION (09:15)
[2021-08-12 11:22] LABS: Glucose Point of Care 269 mg/dl (65-105)
[2021-08-12] MEDS: INSULIN ASPART (*BKC) 100 UNITS/ML SUB-Q (11:42)
[2021-08-12] MEDS: FERROUS SULFATE 324 MG TABLET 648 MG PO (11:44)
--- NOTE | 2021-08-12 12:17 | P.PNNP_ITS ---
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 * however, she also had signifiant scarring present (~ 70%) so there may be an element of disease progression as well * s/p several sessions of plasmapheresis on last hospitalization * HD yesterday and continue T/T/S dialysis schedule * follow trend of labs (in between dialysis) and UOP to assess for potential renal recovery (2) Chronic kidney disease, stage IV (severe): Code(s): N18.4 - Chronic kidney disease, stage 4 (severe) Status: Chronic Assessment and Plan: * baseline creatinine seems to run ~ 1.5 - 2.0mg/dl * 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 Finch as an outpatient (5) Chronic anemia: Code(s): D64.9 - Anemia, unspecified Status: Acute Assessment and Plan: * likely related to myeloma and CKD * Epogen with HD * follow trend of H/H (6) Hypertension: Code(s): I10 - Essential (primary) hypertension Status: Chronic Assessment and Plan: * reasonable control at this time * follow trend of hemodynamics (7) Diabetes: Qualifiers: Diabetes mellitus type: type 2 Diabetes mellitus halfway insulin use: without terminal manager use Diabetes mellitus complication status: without complication Qualified Code(s): E11.9 - Type 2 diabetes mellitus without complications Code(s): E11.9 - Type 2 diabetes mellitus without complications Status: Chronic Assessment and Plan: * follow accuchecks * glycemic control (8) Weakness: Code(s): R53.1 - Weakness Status: Acute Assessment and Plan: * presumably due to deconditioning on last hospitalization and UTI * PT/OT as tolerated * suspect will need placement on discharge Will continue to follow. Subjective Date/time seen: 08/12/21 12:17 Tolerated dialysis yesterday without any issues or problems; no acute distress voiced at the time of my visit; working with PT/OT as tolerated; no other events overnight or earlier today; feels reasonably well. Exam Narrative: General: WD/WN female in NAD Heart: normal S1 and S2; no rub Lungs: clear to auscultation Abdomen: soft, nontender, nondistended, positive bowel sounds Extremities: no cyanosis or clubbing; trace edema Skin: no nodules Objective Data Vital Signs Vital Signs: Vital Signs Temp Pulse Resp BP Pulse Ox O2 Del Method 08/12/21 08:00 Room Air 08/12/21 09:16 98 Room Air 08/12/21 08:42 85 08/12/21 06:00 35.9 C L 72 18 130/45 L 99 08/12/21 03:40 79 95 CPAP 0
--- NOTE | 2021-08-12 12:17 | PM.PNNEP ---
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 however, she also had signifiant scarring present (~ 70%) so there may be an element of disease progression as well s/p several sessions of plasmapheresis on last hospitalization HD yesterday and continue T/T/S dialysis schedule follow trend of labs (in between dialysis) and UOP to assess for potential renal recovery (2) Chronic kidney disease, stage IV (severe): Code(s): N18.4 - Chronic kidney disease, stage 4 (severe) Status: Chronic Assessment and Plan: baseline creatinine seems to run ~ 1.5 - 2.0mg/dl 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 Finch as an outpatient (5) Chronic anemia: Code(s): D64.9 - Anemia, unspecified Status: Acute Assessment and Plan: likely related to myeloma and CKD Epogen with HD follow trend of H/H (6) Hypertension: Code(s): I10 - Essential (primary) hypertension Status: Chronic Assessment and Plan: reasonable control at this time follow trend of hemodynamics (7) Diabetes: Qualifiers: Diabetes mellitus type: type 2 Diabetes mellitus director long term care insulin use: without director long term care use Diabetes mellitus complication status: without complication Qualified Code(s): E11.9 - Type 2 diabetes mellitus without complications Code(s): E11.9 - Type 2 diabetes mellitus without complications Status: Chronic Assessment and Plan: follow accuchecks glycemic control (8) Weakness: Code(s): R53.1 - Weakness Status: Acute Assessment and Plan: presumably due to deconditioning on last hospitalization and UTI PT/OT as tolerated suspect will need placement on discharge Will continue to follow. Subjective Date/time seen: 08/12/21 12:17 Tolerated dialysis yesterday without any issues or problems; no acute distress voiced at the time of my visit; working with PT/OT as tolerated; no other events overnight or earlier today; feels reasonably well. Exam Narrative: General: WD/WN female in NAD Heart: normal S1 and S2; no rub Lungs: clear to auscultation Abdomen: soft, nontender, nondistended, positive bowel sounds Extremities: no cyanosis or clubbing; trace edema Skin: no nodules Objective Data Vital Signs Vital Signs: Vital Signs Temp Pulse Resp BP Pulse Ox O2 Del Method 08/12/21 08:00 Room Air 08/12/21 09:16 98 Room Air 08/12/21 08:42 85 08/12/21 06:00 35.9 C L 72 18 130/45 L 99 08/12/21 03:40 79 95 CPAP 08/11/21 22:35 83 96 CPAP 08/11/21 22:00 36.0 C L 80 18 123/46 L 96 Intake/Output Intake/Output: Intake & Output 08/09/21 08/10/21 08/11/21 08/12/21 23:59 23:59 23:59 23:59 Intake Total 390 1460 1890 2070 Output Total 3225 1200 3400 200 Balance -2835 260 -1510 1870 Meds/Results Medications: Active Medications Generic Name Dose Route Start Last Admin Trade Name Freq PRN Reason Stop Dose Admin Albuterol 2 puff 08/09/21 16:17 Albuterol Sulfate (*Sp) Aerosol 1 Puff INHALATION Q4H PRN Shortness Of Breath Amlodipine Besylate 5 mg 08/10/21 09:00 08/12/21 08:43 Amlodipine Besylate 5 Mg Tablet PO 5 mg QAM JERROD Administration Apixaban 2.5 mg 06
--- NOTE | 2021-08-12 12:46 | PM.IMPN ---
Progress Note: A&P Assessment and Plan (1) Weakness: Code(s): R53.1 - Weakness Status: Acute (2) Chronic kidney disease, stage IV (severe): Code(s): N18.4 - Chronic kidney disease, stage 4 (severe) Status: Chronic (3) Tremors of nervous system: Code(s): R25.1 - Tremor, unspecified Status: Acute (4) Urinary tract infection: Code(s): N39.0 - Urinary tract infection, site not specified Status: Acute (5) Paroxysmal atrial fibrillation: Code(s): I48.0 - Paroxysmal atrial fibrillation Status: Acute (6) Essential and other specified forms of tremor: Code(s): G25.0 - Essential tremor; G25.2 - Other specified forms of tremor Status: Acute (7) Hypertension: Code(s): I10 - Essential (primary) hypertension Status: Chronic (8) Dyslipidemia: Code(s): E78.5 - Hyperlipidemia, unspecified Status: Acute (9) Insulin dependent type 2 diabetes mellitus: Code(s): E11.9 - Type 2 diabetes mellitus without complications; Z79.4 - care home (current) use of insulin Status: Acute (10) Obstructive sleep apnea on CPAP: Code(s): G47.33 - Obstructive sleep apnea (adult) (pediatric); Z99.89 - Dependence on other enabling machines and devices Status: Acute (11) Multiple myeloma: Code(s): C90.00 - Multiple myeloma not having achieved remission Status: Chronic (12) Thrombocytopenia: Code(s): D69.6 - Thrombocytopenia, unspecified Status: Acute Plan # generalized weakness with fall without any head injury . PT OT evaluated. coordination consulted. # UTI symptomatic also. Follow urine culture. Rocephin started. Urine culture grew Pseudomonas aeruginosa. Will change ceftriaxone to cefepime. Concern about urinary retention due to her oxybutynin. I believe her E UTI is the primary culprit for this rather than oxybutynin that she has been taking for several years. Will stop oxybutynin for now and reassess her need for her overactive bladder diagnosis as an outpatient basis. Remove Child catheter today for void trial. Continue cefepime sensitive to Cipro discharge # end-stage renal disease on hemodialysis secondary to progressive multiple myeloma biopsy-proven last admission. She also treated with Plasmapheresis during that admission. Started on hemodialysis last admission. Will continue with Friday schedule. Nephrology consultation for the same. # chronic anemia stable count no signs of bleeding. Procrit injection as an outpatient basis along with oral iron # multiple myeloma: She was treated with 3 doses of dexamethasone and plasmapheresis during her recent stay. She is planned to be treated with Velcade, Cytoxan and dexamethasone as an outpatient basis. Acute renal failure likely due to myeloma kidney biopsy-proven cast nephropathy noted. She was on lenalidomide prior to this for multiple myeloma however is planned to start on Velcade due to new renal impairment # insulin-dependent diabetes mellitus continue on basal insulin and sliding scale Accu-Cheks with hypoglycemic protocol. # history sleep apnea on CPAP will continue CPAP during hospital stay # hypertension losartan has been discontinued. Resume amlodipine # paroxysmal atrial fibrillation : Diagnosed 04/2021. At that had any recurrence objectively. Decided on Eliquis 2.5 mg b.i.d. for stroke prophylaxis after discussion with the patient. Which will be continued # DVT prophylaxis Eliquis # code status full code Subjective Date/time seen: 08/12/21 12:46 Interval history: HPI:this is 70 year of a female who was recently discharged yesterday and was supposed to go for dialysis today at [facility] however she was feeling weak this morning and slid out of her bed and was unable to stand.? She then called EMS who brought her to the ER for evaluation.? She denied any symptoms prior to the fall the chest pain lightheadedn
[2021-08-12] MEDS: MAGNESIUM OXIDE 400 MG TABLET PO ×2 (13:08→17:54)
--- NOTE | 2021-08-12 15:05 | PM.DS ---
DS: Admitting Diagnosis Discharge Date 08/12/2021 Admitting Diagnosis generalized weakness DS: Discharge Diagnosis Discharge Diagnosis (1) Weakness: Code(s): R53.1 - Weakness Status: Acute (2) Chronic kidney disease, stage IV (severe): Code(s): N18.4 - Chronic kidney disease, stage 4 (severe) Status: Chronic (3) Tremors of nervous system: Code(s): R25.1 - Tremor, unspecified Status: Acute (4) Urinary tract infection: Code(s): N39.0 - Urinary tract infection, site not specified Status: Acute (5) Paroxysmal atrial fibrillation: Code(s): I48.0 - Paroxysmal atrial fibrillation Status: Acute (6) Essential and other specified forms of tremor: Code(s): G25.0 - Essential tremor; G25.2 - Other specified forms of tremor Status: Acute (7) Hypertension: Code(s): I10 - Essential (primary) hypertension Status: Chronic (8) Dyslipidemia: Code(s): E78.5 - Hyperlipidemia, unspecified Status: Acute (9) Insulin dependent type 2 diabetes mellitus: Code(s): E11.9 - Type 2 diabetes mellitus without complications; Z79.4 - detention (current) use of insulin Status: Acute (10) Obstructive sleep apnea on CPAP: Code(s): G47.33 - Obstructive sleep apnea (adult) (pediatric); Z99.89 - Dependence on other enabling machines and devices Status: Acute (11) Multiple myeloma: Code(s): C90.00 - Multiple myeloma not having achieved remission Status: Chronic (12) Thrombocytopenia: Code(s): D69.6 - Thrombocytopenia, unspecified Status: Acute Plan # generalized weakness with fall without any head injury . PT OT evaluated. coordination consulted. accepted at [facility] # UTI symptomatic also. started on Rocephin started. Urine culture grew Pseudomonas aeruginosa. ceftriaxone changed to cefepime while awaiting sensitivity. Concern about urinary retention due to her oxybutynin. I believe her E UTI is the primary culprit for this rather than oxybutynin that she has been taking for several years. Will stop oxybutynin for now and reassess her need for her overactive bladder diagnosis as an outpatient basis. Child catheter was placed in for his acute urinary retention on admission. Removed prior to discharge with void trial. She urine culture grew Pseudomonas aeruginosa which is sensitive to Cipro intermediate to Levaquin. Will switch to renally dosed ciprofloxacin for 7 days post discharge. # end-stage renal disease on hemodialysis secondary to progressive multiple myeloma biopsy-proven last admission. She also treated with Plasmapheresis during that admission. Started on hemodialysis last admission. Will continue with Friday schedule. Nephrology consultation for the same. # chronic anemia stable count no signs of bleeding. Procrit injection as an outpatient basis along with oral iron. Follow-up with hematology as outpatient basis # multiple myeloma: She was treated with 3 doses of dexamethasone and plasmapheresis during her recent stay. She is planned to be treated with Velcade, Cytoxan and dexamethasone as an outpatient basis. Acute renal failure likely due to myeloma kidney biopsy-proven cast nephropathy noted. She was on lenalidomide prior to this for multiple myeloma however is planned to start on Velcade due to new renal impairment # insulin-dependent diabetes mellitus continue on basal insulin and sliding scale Accu-Cheks with hypoglycemic protocol. # history sleep apnea on CPAP will continue CPAP during hospital stay # hypertension losartan has been discontinued. Resume amlodipine # paroxysmal atrial fibrillation : Diagnosed 04/2021. At that had any recurrence objectively. Decided on Eliquis 2.5 mg b.i.d. for stroke prophylaxis after discussion with the patient. Which will be continued # DVT prophylaxis Eliquis # code status full code DS: Summary Hosp
[2021-08-12 15:48] LABS: EDCOVIDSCREEN Negative (Negative)
[2021-08-12 16:35] LABS: Glucose Point of Care 163 mg/dl (65-105)
--- NOTE | 2021-08-12 16:47 | PC.NURSE ---
I called to give report to [facility] for discharge of pt to that facility. I spoke with Christy who informed me that they are rescinding approval/acceptance of pt. Christy further stated that she spoke with her DON who forbade her from accepting pt alleging that no one at that facility knew anything about pt, had accepted pt, nor had approval of the cancer carve out therefore they would not be accepting her at any time. Christy repeatedly stated that she told all of this to our animal care taker today. I made the charge nurse aware of the situation.
--- NOTE | 2021-08-12 17:44 | PCCCNOTE ---
Phone called received from medical safety director Kari, that when bedside RN called to give report, the nurse said that they cannot accept patient since they haven't received authorization for the chemotherapy carve out. Called to admission coordinator Patrizia at [phone] with no answer, left vm message requesting return call. Called to [phone] no answer states if urgent need to call [phone] which connects to [facility] Number spoke with Christy Turner RN who was advised by her DON not to accept patient as they have not received authorization for chemotherapy carve out, this medicare nurse requests to speak with DON, Christy took name and number to give to DON. Called to [facility] per care coordination note and spoke w/ Theresa. She takes that cancer carve outs are done by [facility] and it has been initated but there is not a decision. It was started on 08/10/21 and it usually takes 24 business hours but they do not work weekend or the August 13 holiday. Theresa recommends that accepting [facility] call [facility] on Friday at [phone]. Phone call received form coordinator cardiopulmonary services Patrizia, she states that she has received SNF auth but has not received authorization for the chemotherapy carve out so the patient cannot be admitted to their facility until it is received. She has people from administration in direct contact with [facility] and has been following it, once received she will notify us right away. Called to golf ball molder Kari to notify that patient cannot discharge, she will notify the physician.
[2021-08-12] MEDS: CEFEPIME 0.5 GM in DEXTROSE 5% IN WATER 50 ML IVPB (17:53)
[2021-08-12] MEDS: SERTRALINE HCL 50 MG TABLET PO (21:32)
[2021-08-12] MEDS: PRIMIDONE 50 MG TABLET 100 MG PO (21:32)
[2021-08-12] MEDS: INSULIN GLARGINE (*BKC) 100 UNITS/ML 40 UNITS SUB-Q (21:33)
[2021-08-12 21:56] LABS: Glucose Point of Care 231 mg/dl (65-105)
[2021-08-13] VITALS (8 sets, daily range): BP systolic 110–147; BP diastolic 54–62; PULSE 69–86; RESP 18–20; TEMP 36.1–37.1; O2SAT 95–97
[2021-08-13 07:06] LABS: Basophils Percent Auto 0.5 % (0.2-1.2); Eosinophils Absolute Auto 0.3 K/mm3 (0-0.3); Eosinophils Percent Auto 7.3 % (0-4.4); Hematocrit 28.8 % (37.0-47.0); Immature Granulocyte Absolute 0.15 K/mm3 (0.00-0.031); Immature Platelet Fraction Pct 9.4 % (0.9-11.2); Lymphocytes Absolute Auto 0.65 K/mm3 (0.9-3.2); Lymphocytes Percent Auto 17.5 % (18.3-44.2); Mean Corpuscular HGB Conc 31.3 g/dl (32-36); Mean Corpuscular Hemoglobin 29.6 pg (26-34); Mean Corpuscular Volume 94.7 fl (80-100); Mean Platelet Volume 12.1 fl (7.4-10.4); Monocytes Absolute Auto 0.3 K/mm3 (0.1-0.6); Monocytes Percent Auto 7.8 % (2.6-8.5); Neutrophils Absolute Auto 2.3 K/mm3 (1.3-6.7); Neutrophils Percent Auto 62.9 % (45.5-73.1); Platelet Count Result 64 k/mm3 (150-375); Red Blood Count 3.04 M/mm3 (4.2-5.4); Red Cell Distribution Width 16.1 % (11.5-14.5); White Blood Count 3.7 K/mm3 (4.5-10.0)
[2021-08-13 07:13] LABS: Anion Gap 12 mmol/L (8-16); Blood Urea Nitrogen 36 mg/dL (7-17); Calcium 8.7 mg/dL (8.4-10.2); Carbon Dioxide 25 mmol/L (22-30); Chloride 96 mmol/L (98-107); Estimated CRCL calculation 9 ml/min; Estimated Glomerular Filt Rate 6; Glucose 140 mg/dL (65-110); Potassium 4.1 mmol/L (3.4-5.0); Sodium 133 mmol/L (137-145)
[2021-08-13] MEDS: UMECLIDINIUM BROMIDE 62.5 MCG ELLIPTA 1 PUFF INHALATION (07:47)
[2021-08-13] MEDS: FLUTICASONE/SALMETEROL 230-21 MCG INHALER 1 PUFF 2 PUFF INHALATION ×2 (07:47→20:52)
[2021-08-13 08:13] LABS: Glucose Point of Care 137 mg/dl (65-105)
[2021-08-13 08:34] LABS: Target Cells 1+ (NORMAL)
[2021-08-13 08:35] LABS: Platelet Estimate Decreased (Adequate)
[2021-08-13] MEDS: polyethylene glycoL 3350 17 GM POWD.PACK PO (08:41)
[2021-08-13] MEDS: METOPROLOL TARTRATE 25 MG TABLET PO ×2 (08:41→21:05)
[2021-08-13] MEDS: PRIMIDONE 50 MG TABLET PO (08:41)
[2021-08-13] MEDS: CYCLOBENZAPRINE HCL 10 MG TABLET PO (08:43)
[2021-08-13] MEDS: APIXABAN 2.5 MG TABLET PO ×2 (08:43→16:30)
[2021-08-13] MEDS: ISOSORBIDE MONONITRATE 30 MG TAB.ER.24H PO (08:43)
[2021-08-13] MEDS: amLODIPine BESYLATE 5 MG TABLET PO (08:43)
[2021-08-13] MEDS: OMEGA 3 POLYUNSAT FATTY ACIDS 1 GM CAP PO ×4 (08:43→21:06)
[2021-08-13] MEDS: PREGABALIN (*CRX) 75 MG CAPSULE PO (08:43)
[2021-08-13] MEDS: PANTOPRAZOLE 40 MG TABLET PO (08:43)
[2021-08-13] MEDS: MAGNESIUM OXIDE 400 MG TABLET PO ×2 (08:43→16:30)
[2021-08-13] MEDS: DOCUSATE SODIUM 100 MG CAPSULE PO ×2 (08:43→16:30)
[2021-08-13] MEDS: calcitrioL 0.25 MCG CAPSULE PO (08:44)
[2021-08-13] MEDS: FENOFIBRATE,MICRONIZED 48 MG TABLET PO (08:44)
[2021-08-13] MEDS: ASPIRIN 81 MG CHEWABLE TABLET PO (08:44)
[2021-08-13] MEDS: MUPIROCIN 2% OINT 22 GM TUBE 1 APPLIC EACH NARE ×2 (08:44→21:06)
[2021-08-13 11:49] LABS: Glucose Point of Care 229 mg/dl (65-105)
--- NOTE | 2021-08-13 11:59 | PM.IMPN ---
Progress Note: A&P Assessment and Plan (1) Weakness: Code(s): R53.1 - Weakness Status: Acute (2) Chronic kidney disease, stage IV (severe): Code(s): N18.4 - Chronic kidney disease, stage 4 (severe) Status: Chronic (3) Tremors of nervous system: Code(s): R25.1 - Tremor, unspecified Status: Acute (4) Urinary tract infection: Code(s): N39.0 - Urinary tract infection, site not specified Status: Acute (5) Paroxysmal atrial fibrillation: Code(s): I48.0 - Paroxysmal atrial fibrillation Status: Acute (6) Essential and other specified forms of tremor: Code(s): G25.0 - Essential tremor; G25.2 - Other specified forms of tremor Status: Acute (7) Hypertension: Code(s): I10 - Essential (primary) hypertension Status: Chronic (8) Dyslipidemia: Code(s): E78.5 - Hyperlipidemia, unspecified Status: Acute (9) Insulin dependent type 2 diabetes mellitus: Code(s): E11.9 - Type 2 diabetes mellitus without complications; Z79.4 - [facility] (current) use of insulin Status: Acute (10) Obstructive sleep apnea on CPAP: Code(s): G47.33 - Obstructive sleep apnea (adult) (pediatric); Z99.89 - Dependence on other enabling machines and devices Status: Acute (11) Multiple myeloma: Code(s): C90.00 - Multiple myeloma not having achieved remission Status: Chronic (12) Thrombocytopenia: Code(s): D69.6 - Thrombocytopenia, unspecified Status: Acute Plan # generalized weakness with fall without any head injury . PT OT evaluated. coordination consulted. accepted at [facility] awaiting insurance authorization for cancer treatment # UTI symptomatic also. started on Rocephin started. Urine culture grew Pseudomonas aeruginosa. ceftriaxone changed to cefepime while awaiting sensitivity. Concern about urinary retention due to her oxybutynin. I believe her E UTI is the primary culprit for this rather than oxybutynin that she has been taking for several years. Will stop oxybutynin for now and reassess her need for her overactive bladder diagnosis as an outpatient basis. Child catheter was placed in for his acute urinary retention on admission. Removed prior to discharge with void trial. She urine culture grew Pseudomonas aeruginosa which is sensitive to Cipro intermediate to Levaquin. Will switch to renally dosed ciprofloxacin for 7 days post discharge. Continue on cefepime. Child catheter is removed. Will check postvoid residuals to ensure no urinary retention. Her urine output is poor due to end-stage renal disease on hemodialysis which is recently started. # end-stage renal disease on hemodialysis secondary to progressive multiple myeloma biopsy-proven last admission. She also treated with Plasmapheresis during that admission. Started on hemodialysis last admission. Will continue with Friday schedule. Nephrology consultation for the same. # chronic anemia stable count no signs of bleeding. Procrit injection as an outpatient basis along with oral iron. Follow-up with hematology as outpatient basis # multiple myeloma: She was treated with 3 doses of dexamethasone and plasmapheresis during her recent stay. She is planned to be treated with Velcade, Cytoxan and dexamethasone as an outpatient basis. Acute renal failure likely due to myeloma kidney biopsy-proven cast nephropathy noted. She was on lenalidomide prior to this for multiple myeloma however is planned to start on Velcade due to new renal impairment # insulin-dependent diabetes mellitus continue on basal insulin and sliding scale Accu-Cheks with hypoglycemic protocol. # history sleep apnea on CPAP will continue CPAP during hospital stay # hypertension losartan has been discontinued. Resume amlodipine # paroxysmal atrial fibrillation : Diagnosed 04/2021. At that had any recurrence objectively. Decided on Eliquis 2.5 mg
[2021-08-13] MEDS: INSULIN ASPART (*BKC) 100 UNITS/ML SUB-Q (12:25)
[2021-08-13] MEDS: FERROUS SULFATE 324 MG TABLET 648 MG PO (12:26)
[2021-08-13] MEDS: CEFEPIME 0.5 GM in DEXTROSE 5% IN WATER 50 ML IVPB (16:22)
[2021-08-13 16:28] LABS: Glucose Point of Care 182 mg/dl (65-105)
[2021-08-13] MEDS: TAMSULOSIN HCL 0.4 MG CAPSULE PO (17:00)
[2021-08-13] MEDS: SERTRALINE HCL 50 MG TABLET PO (21:05)
[2021-08-13] MEDS: PRIMIDONE 50 MG TABLET 100 MG PO (21:06)
[2021-08-13] MEDS: INSULIN GLARGINE (*BKC) 100 UNITS/ML 40 UNITS SUB-Q (21:06)
[2021-08-13 21:27] LABS: Glucose Point of Care 201 mg/dl (65-105)
[2021-08-14] VITALS (22 sets, daily range): BP systolic 116–186; BP diastolic 51–80; PULSE 68–100; RESP 16–20; TEMP 35.7–37; O2SAT 92–100
[2021-08-14 06:33] LABS: Basophils Percent Auto 0.6 % (0.2-1.2); Eosinophils Absolute Auto 0.2 K/mm3 (0-0.3); Eosinophils Percent Auto 5.7 % (0-4.4); Hematocrit 28.5 % (37.0-47.0); Hemoglobin 8.9 g/dL (12.0-15.0); Immature Granulocyte Absolute 0.13 K/mm3 (0.00-0.031); Immature Granulocyte Percent A 3.9 % (0-0.5); Immature Platelet Fraction Pct 9.1 % (0.9-11.2); Lymphocytes Absolute Auto 0.79 K/mm3 (0.9-3.2); Lymphocytes Percent Auto 23.7 % (18.3-44.2); Mean Corpuscular HGB Conc 31.2 g/dl (32-36); Mean Corpuscular Hemoglobin 29.9 pg (26-34); Mean Corpuscular Volume 95.6 fl (80-100); Monocytes Absolute Auto 0.2 K/mm3 (0.1-0.6); Monocytes Percent Auto 6.6 % (2.6-8.5); Neutrophils Percent Auto 59.5 % (45.5-73.1); Platelet Count Result 59 k/mm3 (150-375); Red Blood Count 2.98 M/mm3 (4.2-5.4); Red Cell Distribution Width 15.7 % (11.5-14.5); White Blood Count 3.3 K/mm3 (4.5-10.0)
[2021-08-14 06:44] LABS: Alanine Aminotransferase 6 U/L (6-35); Albumin Level 3.8 g/dL (3.5-5.1); Alkaline Phosphatase 59 U/L (38-126); Anion Gap 13 mmol/L (8-16); Aspartate Amino Transferase 13 U/L (14-36); Bilirubin,Total 0.4 mg/dL (0.2-1.3); Blood Urea Nitrogen 47 mg/dL (7-17); Calcium 8.7 mg/dL (8.4-10.2); Carbon Dioxide 22 mmol/L (22-30); Chloride 96 mmol/L (98-107); Estimated CRCL calculation 8 ml/min; Estimated Glomerular Filt Rate 5; Glucose 160 mg/dL (65-110); Magnesium 2.1 mg/dL (1.6-2.3); Potassium 4.2 mmol/L (3.4-5.0); Sodium 131 mmol/L (137-145)
[2021-08-14 07:40] LABS: Glucose Point of Care 144 mg/dl (65-105)
[2021-08-14] MEDS: FLUTICASONE/SALMETEROL 230-21 MCG INHALER 1 PUFF 2 PUFF INHALATION ×2 (07:57→19:56)
[2021-08-14] MEDS: UMECLIDINIUM BROMIDE 62.5 MCG ELLIPTA 1 PUFF INHALATION (07:57)
[2021-08-14 08:54] LABS: Iron 83 ug/dL (37-170)
[2021-08-14 09:04] LABS: Percent Iron Saturation 48 % (20-50)
[2021-08-14 09:05] LABS: Ovalocytes 1+ (NORMAL); Platelet Estimate Decreased (Adequate)
--- NOTE | 2021-08-14 11:10 | P.PNNP_ITS ---
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 * She was start Velcade as an outpatient. * Discussed with the patient. Renal recovery is less likely than if she had normal underlying kidneys. 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 Finch as an outpatient (5) Chronic anemia: Code(s): D64.9 - Anemia, unspecified Status: Acute Assessment and Plan: * likely related to myeloma and CKD * Epogen with HD * check a reticulocyte count (6) Hypertension: Code(s): I10 - Essential (primary) hypertension Status: Chronic Assessment and Plan: * reasonable control at this time * follow trend of hemodynamics (7) Diabetes: Qualifiers: Diabetes mellitus type: type 2 Diabetes mellitus longterm insulin use: without longterm use Diabetes mellitus complication status: without complication Qualified Code(s): E11.9 - Type 2 diabetes mellitus without complications Code(s): E11.9 - Type 2 diabetes mellitus without complications Status: Chronic Assessment and Plan: * follow accuchecks * glycemic control (8) Weakness: Code(s): R53.1 - Weakness Status: Acute Assessment and Plan: * presumably due to deconditioning on last hospitalization and UTI * PT/OT as tolerated * to be placed of [facility] apparently. Subjective Date/time seen: 08/14/21 11:10 Interval history: Jaimie was going to be discharged yesterday. She is still here. She feels okay. Eager for discharge to [facility]. She is on dialysis and tolerating it well. We are trying to take some fluid off of her. Review of Systems Cardiovascular: Cardiovascular: Reports no additional cardiovascular complaints Respiratory: Respiratory: Reports no additional respiratory complaints Gastrointestinal: Gastrointestinal: Reports no additional gastrointestinal complaints Genitourinary: Genitourinary: Reports no additional female genitourinary complaints Exam Narrative: WDWN in NAD skin no rash head ncat lungs clear cor reg no rub abd BS+ nontender and soft ext Trace bilateral edema. Objective Data Vital Signs Vital Signs: Vital Signs - 24 hr
--- NOTE | 2021-08-14 11:10 | PM.PNNEP ---
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 She was start Velcade as an outpatient. Discussed with the patient. Renal recovery is less likely than if she had normal underlying kidneys. 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 Finch as an outpatient (5) Chronic anemia: Code(s): D64.9 - Anemia, unspecified Status: Acute Assessment and Plan: likely related to myeloma and CKD Epogen with HD check a reticulocyte count (6) Hypertension: Code(s): I10 - Essential (primary) hypertension Status: Chronic Assessment and Plan: reasonable control at this time follow trend of hemodynamics (7) Diabetes: Qualifiers: Diabetes mellitus type: type 2 Diabetes mellitus technician terminal and repeater insulin use: without technician terminal and repeater use Diabetes mellitus complication status: without complication Qualified Code(s): E11.9 - Type 2 diabetes mellitus without complications Code(s): E11.9 - Type 2 diabetes mellitus without complications Status: Chronic Assessment and Plan: follow accuchecks glycemic control (8) Weakness: Code(s): R53.1 - Weakness Status: Acute Assessment and Plan: presumably due to deconditioning on last hospitalization and UTI PT/OT as tolerated to be placed of [facility]. Subjective Date/time seen: 08/14/21 11:10 Interval history: Jaimie was going to be discharged yesterday. She is still here. She feels okay. Eager for discharge to [facility]. She is on dialysis and tolerating it well. We are trying to take some fluid off of her. Review of Systems Cardiovascular: Cardiovascular: Reports no additional cardiovascular complaints Respiratory: Respiratory: Reports no additional respiratory complaints Gastrointestinal: Gastrointestinal: Reports no additional gastrointestinal complaints Genitourinary: Genitourinary: Reports no additional female genitourinary complaints Exam Narrative: WDWN in NAD skin no rash head ncat lungs clear cor reg no rub abd BS+ nontender and soft ext Trace bilateral edema. Objective Data Vital Signs Vital Signs: Vital Signs - 24 hr 08/13/21 14:00 08/13/21 21:05 08/13/21 21:19 Temperature 36.1 C L 37.1 C Pulse Rate 75 76 86 Respiratory Rate 18 18 Blood Pressure 110/62 140/54 L Pulse Oximetry 97 97 Oxygen Delivery 08/13/21 20:00 08/13/21 20:53 08/13/21 22:30 Temperature Pulse Rate 84 78 Respiratory Rate 18 Blood Pressure Pulse Oximetry 96 Oxygen Delivery Room Air CPAP 08/14/21 02:10 08/14/21 06:00 08/14/21 07:58 Temperature 36.8 C Pulse Rate 82 68 Respiratory Rate 16 Blood Pressure 116/68 Pulse Oximetry 95 100 92 Oxygen Delivery CPAP Room Air 08/14/21 08:00 Temperature Pulse Rate Respiratory Rate Blood Pressure Pulse Oximetry 94 Oxyge
--- NOTE | 2021-08-14 11:15 | PM.EVENT ---
Event Note Event Note Event Note: On dialysis and tolerating it well. Blood pressure is pretty good. We will take some fluid off. Patient having no cramping. She was seen at 11 a.m.
--- NOTE | 2021-08-14 11:18 | PM.IMPN ---
Progress Note: A&P Assessment and Plan (1) Weakness: Code(s): R53.1 - Weakness Status: Acute (2) Chronic kidney disease, stage IV (severe): Code(s): N18.4 - Chronic kidney disease, stage 4 (severe) Status: Chronic (3) Tremors of nervous system: Code(s): R25.1 - Tremor, unspecified Status: Acute (4) Urinary tract infection: Code(s): N39.0 - Urinary tract infection, site not specified Status: Acute (5) Paroxysmal atrial fibrillation: Code(s): I48.0 - Paroxysmal atrial fibrillation Status: Acute (6) Essential and other specified forms of tremor: Code(s): G25.0 - Essential tremor; G25.2 - Other specified forms of tremor Status: Acute (7) Hypertension: Code(s): I10 - Essential (primary) hypertension Status: Chronic (8) Dyslipidemia: Code(s): E78.5 - Hyperlipidemia, unspecified Status: Acute (9) Insulin dependent type 2 diabetes mellitus: Code(s): E11.9 - Type 2 diabetes mellitus without complications; Z79.4 - retirement (current) use of insulin Status: Acute (10) Obstructive sleep apnea on CPAP: Code(s): G47.33 - Obstructive sleep apnea (adult) (pediatric); Z99.89 - Dependence on other enabling machines and devices Status: Acute (11) Multiple myeloma: Code(s): C90.00 - Multiple myeloma not having achieved remission Status: Chronic (12) Thrombocytopenia: Code(s): D69.6 - Thrombocytopenia, unspecified Status: Acute Plan # generalized weakness with fall without any head injury . PT OT evaluated. coordination consulted. accepted at [facility] awaiting insurance authorization for cancer treatment # UTI symptomatic also. started on Rocephin started. Urine culture grew Pseudomonas aeruginosa. ceftriaxone changed to cefepime while awaiting sensitivity. Concern about urinary retention due to her oxybutynin. I believe her E UTI is the primary culprit for this rather than oxybutynin that she has been taking for several years. Will stop oxybutynin for now and reassess her need for her overactive bladder diagnosis as an outpatient basis. Child catheter was placed in for his acute urinary retention on admission. Removed prior to discharge with void trial. She urine culture grew Pseudomonas aeruginosa which is sensitive to Cipro intermediate to Levaquin. Will switch to renally dosed ciprofloxacin for 7 days post discharge. Continue on cefepime. Child catheter is removed. Postvoid residual was more than 200 cc yesterday placed on Flomax with subsequent improvement. Will continue Flomax daily. Her urine output is poor due to end-stage renal disease on hemodialysis which is recently started. # end-stage renal disease on hemodialysis secondary to progressive multiple myeloma biopsy-proven last admission. She also treated with Plasmapheresis during that admission. Started on hemodialysis last admission. Will continue with Friday schedule. Nephrology consultation for the same. # chronic anemia stable count no signs of bleeding. Procrit injection as an outpatient basis along with oral iron. Follow-up with hematology as outpatient basis # multiple myeloma: She was treated with 3 doses of dexamethasone and plasmapheresis during her recent stay. She is planned to be treated with Velcade, Cytoxan and dexamethasone as an outpatient basis. Acute renal failure likely due to myeloma kidney biopsy-proven cast nephropathy noted. She was on lenalidomide prior to this for multiple myeloma however is planned to start on Velcade due to new renal impairment # insulin-dependent diabetes mellitus continue on basal insulin and sliding scale Accu-Cheks with hypoglycemic protocol. # history sleep apnea on CPAP will continue CPAP during hospital stay # hypertension losartan has been discontinued. Resume amlodipine # paroxysmal atrial fibrillation : Diagnosed 04/2021. At th
--- NOTE | 2021-08-14 11:54 | PCPTNOTE ---
The patient treatment was not able to be completed due to patient out of room for dialysis. Will plan to continue treatment per plan of care.
[2021-08-14 12:03] LABS: Glucose Point of Care 158 mg/dl (65-105)
--- NOTE | 2021-08-14 13:48 | PCPTNOTE ---
Returned to see patient this afternoon, however patient is still out of room in dialysis. PT will continue to follow per plan of care.
--- NOTE | 2021-08-14 14:02 | PC.NURSE ---
Patient threatened to leave AMA to check on her kitten at home, but is currently AMS. Patient does not have any emergency contact. Patient states moved out in 2018. RN contacted PCP with patients approval to receive patient's emergency contact. Patient's PCP provided emergency contact information as Niru Penny (ex-sister in law) and Saurabh Laraandrea ( that ). Patient agreed for RN to update Niru Penny. Niru Penny said her daughter may be patient's POA, which is out of state. Niru will contact patient's brother and niece to get additional information and check on the patient's kitten. RN gave Niru Penny [facility] phone number. RN updated patient and patient agrees to stay for observation.
[2021-08-14] MEDS: MUPIROCIN 2% OINT 22 GM TUBE 1 APPLIC EACH NARE ×2 (14:30→21:16)
[2021-08-14] MEDS: FERROUS SULFATE 324 MG TABLET 648 MG PO (15:20)
[2021-08-14] MEDS: ISOSORBIDE MONONITRATE 30 MG TAB.ER.24H PO (15:20)
[2021-08-14] MEDS: amLODIPine BESYLATE 5 MG TABLET PO (15:20)
[2021-08-14] MEDS: ASPIRIN 81 MG CHEWABLE TABLET PO (15:21)
[2021-08-14] MEDS: PRIMIDONE 50 MG TABLET PO (15:21)
[2021-08-14] MEDS: calcitrioL 0.25 MCG CAPSULE PO (15:21)
[2021-08-14] MEDS: TAMSULOSIN HCL 0.4 MG CAPSULE PO (15:21)
[2021-08-14] MEDS: PREGABALIN (*CRX) 75 MG CAPSULE PO (15:21)
[2021-08-14] MEDS: FENOFIBRATE,MICRONIZED 48 MG TABLET PO (15:22)
[2021-08-14] MEDS: PANTOPRAZOLE 40 MG TABLET PO (15:22)
[2021-08-14 16:53] LABS: Glucose Point of Care 214 mg/dl (65-105)
[2021-08-14] MEDS: APIXABAN 2.5 MG TABLET PO (17:58)
[2021-08-14] MEDS: DOCUSATE SODIUM 100 MG CAPSULE PO (17:58)
[2021-08-14] MEDS: OMEGA 3 POLYUNSAT FATTY ACIDS 1 GM CAP PO ×2 (17:59→21:15)
[2021-08-14] MEDS: MAGNESIUM OXIDE 400 MG TABLET PO (17:59)
[2021-08-14] MEDS: CEFEPIME 0.5 GM in DEXTROSE 5% IN WATER 50 ML IVPB (18:01)
[2021-08-14 19:47] LABS: Glucose Point of Care 203 mg/dl (65-105)
[2021-08-14] MEDS: PRIMIDONE 50 MG TABLET 100 MG PO (21:14)
[2021-08-14] MEDS: SERTRALINE HCL 50 MG TABLET PO (21:14)
[2021-08-14] MEDS: METOPROLOL TARTRATE 25 MG TABLET PO (21:14)
[2021-08-14] MEDS: INSULIN GLARGINE (*BKC) 100 UNITS/ML 40 UNITS SUB-Q (21:16)
[2021-08-15] VITALS (8 sets, daily range): BP systolic 107–144; BP diastolic 46–61; PULSE 80–90; RESP 16–20; TEMP 35.6–36.5; O2SAT 93–97
[2021-08-15] MEDS: FLUTICASONE/SALMETEROL 230-21 MCG INHALER 1 PUFF 2 PUFF INHALATION ×2 (07:49→20:00)
[2021-08-15] MEDS: UMECLIDINIUM BROMIDE 62.5 MCG ELLIPTA 1 PUFF INHALATION (07:49)
[2021-08-15] MEDS: OMEGA 3 POLYUNSAT FATTY ACIDS 1 GM CAP PO ×4 (08:41→20:49)
[2021-08-15] MEDS: ASPIRIN 81 MG CHEWABLE TABLET PO (08:41)
[2021-08-15] MEDS: METOPROLOL TARTRATE 25 MG TABLET PO ×2 (08:42→20:49)
[2021-08-15] MEDS: PRIMIDONE 50 MG TABLET PO (08:42)
[2021-08-15] MEDS: TAMSULOSIN HCL 0.4 MG CAPSULE PO (08:43)
[2021-08-15] MEDS: PANTOPRAZOLE 40 MG TABLET PO (08:43)
[2021-08-15] MEDS: APIXABAN 2.5 MG TABLET PO ×2 (08:43→16:50)
[2021-08-15] MEDS: PREGABALIN (*CRX) 75 MG CAPSULE PO (08:43)
[2021-08-15] MEDS: FENOFIBRATE,MICRONIZED 48 MG TABLET PO (08:43)
[2021-08-15] MEDS: ISOSORBIDE MONONITRATE 30 MG TAB.ER.24H PO (08:43)
[2021-08-15] MEDS: MAGNESIUM OXIDE 400 MG TABLET PO ×2 (08:43→16:50)
[2021-08-15] MEDS: amLODIPine BESYLATE 5 MG TABLET PO (08:43)
[2021-08-15] MEDS: calcitrioL 0.25 MCG CAPSULE PO (08:43)
[2021-08-15] MEDS: MUPIROCIN 2% OINT 22 GM TUBE 1 APPLIC EACH NARE ×2 (08:44→20:49)
[2021-08-15 10:22] LABS: Hematocrit 28.5 % (37.0-47.0); Mean Corpuscular HGB Conc 31.6 g/dl (32-36); Mean Corpuscular Hemoglobin 29.7 pg (26-34); Mean Corpuscular Volume 94.1 fl (80-100); Mean Platelet Volume 11.4 fl (7.4-10.4); Platelet Count Result 64 k/mm3 (150-375); Red Blood Count 3.03 M/mm3 (4.2-5.4); Red Cell Distribution Width 15.8 % (11.5-14.5); White Blood Count 2.7 K/mm3 (4.5-10.0)
[2021-08-15 10:40] LABS: Anion Gap 10 mmol/L (8-16); Blood Urea Nitrogen 29 mg/dL (7-17); Calcium 8.8 mg/dL (8.4-10.2); Carbon Dioxide 29 mmol/L (22-30); Chloride 95 mmol/L (98-107); Estimated CRCL calculation 9 ml/min; Estimated Glomerular Filt Rate 6; Glucose 257 mg/dL (65-110); Phosphorus 6.2 mg/dL (2.5-4.5); Potassium 4.1 mmol/L (3.4-5.0); Sodium 134 mmol/L (137-145)
[2021-08-15 12:56] LABS: Glucose Point of Care 241 mg/dl (65-105)
[2021-08-15 12:56] LABS: Glucose Point of Care 166 mg/dl (65-105)
[2021-08-15] MEDS: INSULIN ASPART (*BKC) 100 UNITS/ML SUB-Q ×2 (12:57→16:49)
[2021-08-15] MEDS: FERROUS SULFATE 324 MG TABLET 648 MG PO (13:00)
--- NOTE | 2021-08-15 15:43 | PM.IMPN ---
Progress Note: A&P Assessment and Plan (1) Weakness: Code(s): R53.1 - Weakness Status: Acute Assessment and Plan: Multifactorial, plan is for rehab at discharge, awaiting insurance authorization (2) Chronic kidney disease, stage IV (severe): Code(s): N18.4 - Chronic kidney disease, stage 4 (severe) Status: Chronic Assessment and Plan: Receiving hemodialysis Friday per Nephrology, this is secondary to her multiple myeloma which is being treated with chemotherapy by Oncology (3) Tremors of nervous system: Code(s): R25.1 - Tremor, unspecified Status: Acute Assessment and Plan: Re-consult Neurology, previously on primidone, she is concerned this will interact with her blood thinners, additionally, her symptoms are still moderate to severe despite being on the primidone (4) Urinary tract infection: Code(s): N39.0 - Urinary tract infection, site not specified Status: Acute Assessment and Plan: Positive urinalysis seen in the ER, antibiotic day 7 with Rocephin, will discontinue tomorrow (5) Paroxysmal atrial fibrillation: Code(s): I48.0 - Paroxysmal atrial fibrillation Status: Acute Assessment and Plan: Continue Eliquis (6) Essential and other specified forms of tremor: Code(s): G25.0 - Essential tremor; G25.2 - Other specified forms of tremor Status: Acute (7) Hypertension: Code(s): I10 - Essential (primary) hypertension Status: Chronic (8) Dyslipidemia: Code(s): E78.5 - Hyperlipidemia, unspecified Status: Acute (9) Insulin dependent type 2 diabetes mellitus: Code(s): E11.9 - Type 2 diabetes mellitus without complications; Z79.4 - adjunct faculty for medical terminology (current) use of insulin Status: Acute (10) Obstructive sleep apnea on CPAP: Code(s): G47.33 - Obstructive sleep apnea (adult) (pediatric); Z99.89 - Dependence on other enabling machines and devices Status: Acute (11) Multiple myeloma: Code(s): C90.00 - Multiple myeloma not having achieved remission Status: Chronic (12) Thrombocytopenia: Code(s): D69.6 - Thrombocytopenia, unspecified Status: Acute Additional Plan Awaiting insurance authorization, medically stable for discharge Subjective Date/time seen: 08/15/21 15:43 Interval history: Patient states she continues to have issues with tremors and would like to see Neurology again. She also wants to see Oncology because she does not know how the Velcade is going to be arranged outpatient. She would like her vitamin-D level checked. She is also complaining of worsening carpal tunnel symptoms and is going to see if her friend can bring her carpal tunnel brace in from home. She does need to have a nerve conduction study test done outpatient per Neurology for the official diagnosis of carpal tunnel and then she can look into injections versus surgical release. No overnight events noted. No chest pain or shortness of breath. No nausea, vomiting or diarrhea. No fevers or chills. Review of Systems Review of Systems: 12 point review of systems was assessed and was negative except as noted in the HPI Exam Narrative: General: No acute distress, alert and oriented per baseline HEENT: Atraumatic, normocephalic, mucous membranes moist CV: Regular rate and rhythm, S1, S2 Lungs: Clear to auscultation bilaterally, no rales or crackles noted, no wheezes, good air entry Abdomen: Soft, nontender, nondistended Extremities: Normal to inspection Skin: No rashes noted, no lesions or wounds seen Psych: Euthymic, normal affect Objective Data Vital Signs Vital Signs: Vital Signs - 24 hr 08/14/21 19:57 08/14/21 21:14 08/14/21 22:00 Temperature 96.4 F L Pulse Rate 68 91 Respiratory Rate 18 Blood Pressure 124/61 Pulse Oximetry 93 97 Oxygen Delivery Room Air 08/14/21 20:00 08/14/21 22:35 08/15/21 03:55 Temperature Pul
[2021-08-15 16:25] LABS: Glucose Point of Care 216 mg/dl (65-105)
[2021-08-15] MEDS: CEFEPIME 0.5 GM in DEXTROSE 5% IN WATER 50 ML IVPB (16:50)
[2021-08-15] MEDS: IRON SUCROSE COMPLEX 100 MG in SODIUM CHLORIDE 0.9% IV 50 ML 220 MG IVPB (17:33)
--- NOTE | 2021-08-15 17:37 | P.PNNP_ITS ---
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 * She will start Velcade as an outpatient. * she says she is making a little more urine. 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 Finch as an outpatient (5) Chronic anemia: Code(s): D64.9 - Anemia, unspecified Status: Acute Assessment and Plan: * likely related to myeloma and CKD * Epogen with HD * check a reticulocyte count (6) Hypertension: Code(s): I10 - Essential (primary) hypertension Status: Chronic Assessment and Plan: * reasonable control at this time * follow trend of hemodynamics (7) Diabetes: Qualifiers: Diabetes mellitus type: type 2 Diabetes mellitus usp insulin use: without usp use Diabetes mellitus complication status: without complication Qualified Code(s): E11.9 - Type 2 diabetes mellitus without complications Code(s): E11.9 - Type 2 diabetes mellitus without complications Status: Chronic Assessment and Plan: * follow accuchecks * glycemic control (8) Weakness: Code(s): R53.1 - Weakness Status: Acute Assessment and Plan: * presumably due to deconditioning on last hospitalization and UTI * PT/OT as tolerated * to be placed of [facility] apparently. Subjective Date/time seen: 08/15/21 17:37 Interval history: Jaimie Is feeling okay today. She is up in a chair. She is hungry for dinner. Her friend is in the room. Exam Narrative: WDWN in NAD skin no rash head ncat lungs clear Bilaterally cor reg no rub abd BS+ nontender and soft ext Trace bilateral edema. Objective Data Vital Signs Vital Signs: Vital Signs - 24 hr 08/14/21 19:57 08/14/21 21:14 08/14/21 22:00 Temperature 35.8 C L Pulse Rate 68 91 Respiratory Rate 18 Blood Pressure 124/61 Pulse Oximetry 93 97 Oxygen Delivery Room Air 08/14/21 20:00 08/14/21 22:35 08/15/21 03:55 Temperature Pulse Rate 91 83 Respiratory Rate Blood Pressure Pulse Oximetry 96 95 Oxygen Delivery Room Air CPAP CPAP 08/15/21
--- NOTE | 2021-08-15 17:37 | PM.PNNEP ---
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 She will start Velcade as an outpatient. she says she is making a little more urine. 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 Finch as an outpatient (5) Chronic anemia: Code(s): D64.9 - Anemia, unspecified Status: Acute Assessment and Plan: likely related to myeloma and CKD Epogen with HD check a reticulocyte count (6) Hypertension: Code(s): I10 - Essential (primary) hypertension Status: Chronic Assessment and Plan: reasonable control at this time follow trend of hemodynamics (7) Diabetes: Qualifiers: Diabetes mellitus type: type 2 Diabetes mellitus prison insulin use: without terminal computer operator use Diabetes mellitus complication status: without complication Qualified Code(s): E11.9 - Type 2 diabetes mellitus without complications Code(s): E11.9 - Type 2 diabetes mellitus without complications Status: Chronic Assessment and Plan: follow accuchecks glycemic control (8) Weakness: Code(s): R53.1 - Weakness Status: Acute Assessment and Plan: presumably due to deconditioning on last hospitalization and UTI PT/OT as tolerated to be placed of [facility]. Subjective Date/time seen: 08/15/21 17:37 Interval history: Jaimie Is feeling okay today. She is up in a chair. She is hungry for dinner. Her friend is in the room. Exam Narrative: WDWN in NAD skin no rash head ncat lungs clear Bilaterally cor reg no rub abd BS+ nontender and soft ext Trace bilateral edema. Objective Data Vital Signs Vital Signs: Vital Signs - 24 hr 08/14/21 19:57 08/14/21 21:14 08/14/21 22:00 Temperature 35.8 C L Pulse Rate 68 91 Respiratory Rate 18 Blood Pressure 124/61 Pulse Oximetry 93 97 Oxygen Delivery Room Air 08/14/21 20:00 08/14/21 22:35 08/15/21 03:55 Temperature Pulse Rate 91 83 Respiratory Rate Blood Pressure Pulse Oximetry 96 95 Oxygen Delivery Room Air CPAP CPAP 08/15/21 06:00 08/15/21 07:52 08/15/21 08:42 Temperature 35.6 C L Pulse Rate 90 90 Respiratory Rate 18 Blood Pressure 107/46 L Pulse Oximetry 97 96 Oxygen Delivery Room Air 08/15/21 14:00 Temperature 36.3 C L Pulse Rate 80 Respiratory Rate 20 Blood Pressure 118/61 Pulse Oximetry 96 Oxygen Delivery Intake/Output Intake/Output: Intake & Output 08/12/21 08/13/21 08/14/21 08/15/21 23:59 23:59 23:59 23:59 Intake Total 2120 1520 850 530 Output Total 200 1050 3682 800 Balance [phone] -[id number] -[id number] Meds/Results Medications: Active Medications Generic Name Dose Route Start Last Admin Trade Name Freq PRN Reason Stop Dose Admin Albuterol 2 puff 08/09/21 16:17 Albuterol Sulfate (*Sp) Aerosol 1 Puff INHALATION Q4H PRN Shortness Of Breath
[2021-08-15 20:43] LABS: Glucose Point of Care 244 mg/dl (65-105)
[2021-08-15] MEDS: PRIMIDONE 50 MG TABLET 100 MG PO (20:48)
[2021-08-15] MEDS: SERTRALINE HCL 50 MG TABLET PO (20:49)
[2021-08-15] MEDS: INSULIN GLARGINE (*BKC) 100 UNITS/ML 40 UNITS SUB-Q (20:49)
[2021-08-15 20:53] LABS: Vitamin D 25 Hydroxy 30.9 ng/mL
[2021-08-16] VITALS (16 sets, daily range): BP systolic 126–176; BP diastolic 56–89; PULSE 71–103; RESP 16–18; TEMP 36.3–37.1; O2SAT 94–100
[2021-08-16 06:51] LABS: Immature Reticulocyte Fraction 8.3 % (3.0-15.9); Reticulocyte Hemoglobin Conten 31.9 pg (28.2-35.7); Reticulocyte Percent 1.74 % (0.7-4.3); Reticulocytes Absolute 0.05 B/L (32.2-175.7)
[2021-08-16 07:08] LABS: Albumin Level 3.9 g/dL (3.5-5.1); Anion Gap 12 mmol/L (8-16); Blood Urea Nitrogen 39 mg/dL (7-17); Calcium 8.9 mg/dL (8.4-10.2); Carbon Dioxide 29 mmol/L (22-30); Chloride 97 mmol/L (98-107); Estimated CRCL calculation 8 ml/min; Estimated Glomerular Filt Rate 5; Glucose 115 mg/dL (65-110); Phosphorus 7.3 mg/dL (2.5-4.5); Sodium 138 mmol/L (137-145)
[2021-08-16 07:47] LABS: Glucose Point of Care 109 mg/dl (65-105)
[2021-08-16] MEDS: MUPIROCIN 2% OINT 22 GM TUBE 1 APPLIC EACH NARE ×2 (08:00→20:49)
[2021-08-16] MEDS: FLUTICASONE/SALMETEROL 230-21 MCG INHALER 1 PUFF 2 PUFF INHALATION ×2 (08:11→22:00)
[2021-08-16] MEDS: ASPIRIN 81 MG CHEWABLE TABLET PO (09:15)
[2021-08-16] MEDS: PRIMIDONE 50 MG TABLET PO (09:16)
[2021-08-16] MEDS: calcitrioL 0.25 MCG CAPSULE PO (09:16)
[2021-08-16] MEDS: OMEGA 3 POLYUNSAT FATTY ACIDS 1 GM CAP PO ×4 (09:16→20:49)
[2021-08-16] MEDS: MONTELUKAST SODIUM 10 MG TABLET PO (09:16)
[2021-08-16] MEDS: PANTOPRAZOLE 40 MG TABLET PO (09:16)
[2021-08-16] MEDS: MAGNESIUM OXIDE 400 MG TABLET PO ×2 (09:16→18:22)
[2021-08-16] MEDS: TAMSULOSIN HCL 0.4 MG CAPSULE PO (09:16)
[2021-08-16] MEDS: FENOFIBRATE,MICRONIZED 48 MG TABLET PO (09:17)
[2021-08-16] MEDS: ISOSORBIDE MONONITRATE 30 MG TAB.ER.24H PO (09:17)
[2021-08-16 12:01] LABS: Glucose Point of Care 264 mg/dl (65-105)
[2021-08-16] MEDS: FERROUS SULFATE 324 MG TABLET 648 MG PO (13:04)
[2021-08-16] MEDS: INSULIN ASPART (*BKC) 100 UNITS/ML SUB-Q (13:05)
--- NOTE | 2021-08-16 13:55 | PCPTNOTE ---
The patient treatment was not able to be completed on this date due to patient having to leave room for dialysis. Will plan to continue treatment per plan of care.
[2021-08-16] MEDS: EPOETIN ALFA-EPBX 10,000 UNITS/ML VIAL 10000 UNITS IV PUSH ×2 (14:45→17:29)
--- NOTE | 2021-08-16 15:30 | P.PNNP_ITS ---
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 * She will start Velcade as an outpatient. * continue dialysis 3 times a week. (2) Chronic kidney disease, stage IV (severe): Code(s): N18.4 - Chronic kidney disease, stage 4 (severe) Status: Chronic Assessment and Plan: * baseline creatinine seems to run ~ 1.5 - 2.0mg/dl * Due to hypertension and diabetes as well as myeloma kidney. (3) UTI (urinary tract infection): Code(s): N39.0 - Urinary tract infection, site not specified Status: Acute Assessment and Plan: * urine culture with Pseudomonas * on Cefepime (4) Multiple myeloma: Code(s): C90.00 - Multiple myeloma not having achieved remission Status: Chronic Assessment and Plan: * s/p steroids and plasmapheresis * to start Velcade as an outpatient * follow with Dr. Finch as an outpatient (5) Chronic anemia: Code(s): D64.9 - Anemia, unspecified Status: Acute Assessment and Plan: * likely related to myeloma and CKD * Epogen with HD * Reticulocyte count 1.4. Increase the EPO. (6) Hypertension: Code(s): I10 - Essential (primary) hypertension Status: Chronic Assessment and Plan: * reasonable control at this time * follow trend of hemodynamics (7) Diabetes: Qualifiers: Diabetes mellitus type: type 2 Diabetes mellitus detention insulin use: without intermediate teacher use Diabetes mellitus complication status: without complication Qualified Code(s): E11.9 - Type 2 diabetes mellitus without complications Code(s): E11.9 - Type 2 diabetes mellitus without complications Status: Chronic Assessment and Plan: * follow accuchecks * glycemic control (8) Weakness: Code(s): R53.1 - Weakness Status: Acute Assessment and Plan: * presumably due to deconditioning on last hospitalization and UTI * PT/OT as tolerated * to be placed of [facility]. Subjective Date/time seen: 08/16/21 15:30 Interval history: Jaimie Is feeling okay today. She is on dialysis and tolerating it well. Going for 3L or so. Blood pressure is okay so far. She was seen at 3:20 p.m. Exam Narrative: WDWN in NAD skin no rash head ncat lungs clear bilaterally cor reg no rub abd BS+ nontender and soft ext Trace bilateral edema. Objective Data Vital Signs Vital Signs: Vital Signs - 24 hr 08/15/21 20:13 08/15/21 20:49 08/15/21 22:00 Temperature 36.5 C Pulse Rate 85 88 Respiratory Rate 16 Blood Pressure 144/61 H Pulse Oximetry 93 95 Oxygen Delivery Room Air 08/15/21 20:00 08/16/21 06:00 08/16/21 08:00 Temperature 36.3 C L Pulse Rate 71 Respiratory Rate 18 Blood Pressure 139/56 L Pulse Oximetry 100 100 Oxygen Delivery Room Air Room Air
--- NOTE | 2021-08-16 15:30 | PM.PNNEP ---
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 She will start Velcade as an outpatient. continue dialysis 3 times a week. (2) Chronic kidney disease, stage IV (severe): Code(s): N18.4 - Chronic kidney disease, stage 4 (severe) Status: Chronic Assessment and Plan: baseline creatinine seems to run ~ 1.5 - 2.0mg/dl Due to hypertension and diabetes as well as myeloma kidney. (3) UTI (urinary tract infection): Code(s): N39.0 - Urinary tract infection, site not specified Status: Acute Assessment and Plan: urine culture with Pseudomonas on Cefepime (4) Multiple myeloma: Code(s): C90.00 - Multiple myeloma not having achieved remission Status: Chronic Assessment and Plan: s/p steroids and plasmapheresis to start Velcade as an outpatient follow with Dr. Finch as an outpatient (5) Chronic anemia: Code(s): D64.9 - Anemia, unspecified Status: Acute Assessment and Plan: likely related to myeloma and CKD Epogen with HD Reticulocyte count 1.4. Increase the EPO. (6) Hypertension: Code(s): I10 - Essential (primary) hypertension Status: Chronic Assessment and Plan: reasonable control at this time follow trend of hemodynamics (7) Diabetes: Qualifiers: Diabetes mellitus type: type 2 Diabetes mellitus skilled nursing insulin use: without skilled nursing use Diabetes mellitus complication status: without complication Qualified Code(s): E11.9 - Type 2 diabetes mellitus without complications Code(s): E11.9 - Type 2 diabetes mellitus without complications Status: Chronic Assessment and Plan: follow accuchecks glycemic control (8) Weakness: Code(s): R53.1 - Weakness Status: Acute Assessment and Plan: presumably due to deconditioning on last hospitalization and UTI PT/OT as tolerated to be placed of [facility]. Subjective Date/time seen: 08/16/21 15:30 Interval history: Jaimie Is feeling okay today. She is on dialysis and tolerating it well. Going for 3L or so. Blood pressure is okay so far. She was seen at 3:20 p.m. Exam Narrative: WDWN in NAD skin no rash head ncat lungs clear bilaterally cor reg no rub abd BS+ nontender and soft ext Trace bilateral edema. Objective Data Vital Signs Vital Signs: Vital Signs - 24 hr 08/15/21 20:13 08/15/21 20:49 08/15/21 22:00 Temperature 36.5 C Pulse Rate 85 88 Respiratory Rate 16 Blood Pressure 144/61 H Pulse Oximetry 93 95 Oxygen Delivery Room Air 08/15/21 20:00 08/16/21 06:00 08/16/21 08:00 Temperature 36.3 C L Pulse Rate 71 Respiratory Rate 18 Blood Pressure 139/56 L Pulse Oximetry 100 100 Oxygen Delivery Room Air Room Air Intake/Output Intake/Output: Intake & Output 08/13/21 08/14/21 08/15/21 08/16/21 23:59 23:59 23:59 23:59 Intake Total 1520 850 825 820 Output Total 1050 3682 1000 900 Balance 470 -2832 -175 -80 Meds/Results Medications: Active Medications Generic Name Dose Route Start Last Admin Trade Name Freq PRN Reason Stop Dose Admin Albuterol 2 puff 08/09/21 16:17 Albuterol Sulfate (*Sp) Aerosol 1 Puff INHALATION Q4H PRN Shortness Of Breath Amlodipine Besylate 5 mg 08/10/21 09:00 08/15/21 08:43 Amlodipine Besylate 5 Mg Tablet PO 5 mg QAM JERROD Administration Apixaban 2.5 mg 08/09/21 17:00 08/15/21 16:50 Apixaban 2.5 Mg Tablet PO 2.5 mg BID JERROD Administration Aspirin 81 mg 08/10/21 09:00 08/16/21 09:15 Aspiri
--- NOTE | 2021-08-16 15:30 | PM.IMPN ---
Progress Note: A&P Assessment and Plan (1) Weakness: Code(s): R53.1 - Weakness Status: Acute Assessment and Plan: Multifactorial, plan is for rehab at discharge, awaiting insurance authorization (2) Chronic kidney disease, stage IV (severe): Code(s): N18.4 - Chronic kidney disease, stage 4 (severe) Status: Chronic Assessment and Plan: Receiving hemodialysis Friday per Nephrology, this is secondary to her multiple myeloma which is being treated with chemotherapy by Oncology (3) Tremors of nervous system: Code(s): R25.1 - Tremor, unspecified Status: Acute Assessment and Plan: Re-consult Neurology, previously on primidone, she is concerned this will interact with her blood thinners, additionally, her symptoms are still moderate to severe despite being on the primidone (4) Urinary tract infection: Code(s): N39.0 - Urinary tract infection, site not specified Status: Acute Assessment and Plan: Resolving, abx d/c tomorrow after 8 day course of abx, 2 of rocephin, then 6 days of cefepime starting August 11, urine culture showed Pseudomonas on August 09 (5) Paroxysmal atrial fibrillation: Code(s): I48.0 - Paroxysmal atrial fibrillation Status: Acute Assessment and Plan: Continue Eliquis (6) Essential and other specified forms of tremor: Code(s): G25.0 - Essential tremor; G25.2 - Other specified forms of tremor Status: Acute Assessment and Plan: Neurology consult pending (7) Hypertension: Code(s): I10 - Essential (primary) hypertension Status: Chronic Assessment and Plan: Somewhat uncontrolled, will increase metoprolol to 50 mg and switch from tartrate to succinate (8) Dyslipidemia: Code(s): E78.5 - Hyperlipidemia, unspecified Status: Acute (9) Insulin dependent type 2 diabetes mellitus: Code(s): E11.9 - Type 2 diabetes mellitus without complications; Z79.4 - care home (current) use of insulin Status: Acute Assessment and Plan: A1c is 7, Accu-Cheks with sliding scale, glucose well controlled here, fasting glucose 115 today (10) Obstructive sleep apnea on CPAP: Code(s): G47.33 - Obstructive sleep apnea (adult) (pediatric); Z99.89 - Dependence on other enabling machines and devices Status: Acute Assessment and Plan: CPAP in the evenings (11) Multiple myeloma: Code(s): C90.00 - Multiple myeloma not having achieved remission Status: Chronic Assessment and Plan: Appreciate oncology consultation, will begin receiving Velcade injections and discharge (12) Thrombocytopenia: Code(s): D69.6 - Thrombocytopenia, unspecified Status: Acute Assessment and Plan: Stable Additional Plan Awaiting insurance authorization, medically stable for discharge Subjective Date/time seen: 08/16/21 15:30 Interval history: Patient set to discharge soon to rehab. She is anxious to leave. No overnight events noted. No chest pain or shortness of breath. No nausea, vomiting or diarrhea. No fevers or chills. Review of Systems Review of Systems: 12 point review of systems was assessed and was negative except as noted in the HPI Exam Narrative: General: Patient resting comfortably in bed, no acute distress HEENT: Atraumatic, normocephalic, mucous membranes moist CV: Regular rate and rhythm, S1, S2, no murmurs rubs or gallops noted Lungs: Clear to auscultation bilaterally, no rales or crackles noted, no wheezes, good air entry Abdomen: Soft, nontender, nondistended Extremities: Normal to inspection, no edema noted Skin: No rashes noted, no lesions or wounds seen Psych: Euthymic, normal affect Neuro: Cranial nerves 2-12 grossly intact, strength 5/5 upper and lower extremities noted Objective Data Vital Signs Vital Signs: Vital Signs - 24 hr 08/15/21 20:13 08/15/21 20:49 08/15/21 22:00 Temperature
--- NOTE | 2021-08-16 16:24 | PC.NURSE ---
Patient transferred to dialysis around 1320.
[2021-08-16 17:43] LABS: Glucose Point of Care 121 mg/dl (65-105)
[2021-08-16] MEDS: APIXABAN 2.5 MG TABLET PO (18:21)
[2021-08-16] MEDS: CEFEPIME 0.5 GM in DEXTROSE 5% IN WATER 50 ML IVPB (18:21)
[2021-08-16] MEDS: amLODIPine BESYLATE 5 MG TABLET PO (18:23)
[2021-08-16] MEDS: SERTRALINE HCL 50 MG TABLET PO (20:48)
[2021-08-16] MEDS: CYCLOBENZAPRINE HCL 10 MG TABLET PO (20:48)
[2021-08-16] MEDS: PRIMIDONE 50 MG TABLET 100 MG PO (20:49)
[2021-08-16] MEDS: INSULIN GLARGINE (*BKC) 100 UNITS/ML 40 UNITS SUB-Q (20:53)
[2021-08-16 21:53] LABS: Glucose Point of Care 289 mg/dl (65-105)
[2021-08-17 03:40] VITALS: PULSE 91; O2SAT 94
[2021-08-17 04:48] VITALS: BP 142/62; PULSE 79; RESP 18; TEMP 36.4; O2SAT 98
[2021-08-17 06:35] LABS: Anion Gap 9 mmol/L (8-16); Blood Urea Nitrogen 20 mg/dL (7-17); Calcium 8.9 mg/dL (8.4-10.2); Carbon Dioxide 31 mmol/L (22-30); Chloride 97 mmol/L (98-107); Estimated CRCL calculation 12 ml/min; Estimated Glomerular Filt Rate 9; Glucose 136 mg/dL (65-110); Potassium 3.7 mmol/L (3.4-5.0); Sodium 137 mmol/L (137-145)
[2021-08-17 08:00] VITALS: O2SAT 99
[2021-08-17] MEDS: FLUTICASONE/SALMETEROL 230-21 MCG INHALER 1 PUFF 2 PUFF INHALATION (08:00)
[2021-08-17] MEDS: UMECLIDINIUM BROMIDE 62.5 MCG ELLIPTA 1 PUFF INHALATION (08:00)
--- NOTE | 2021-08-17 08:16 | PM.IMPN ---
Progress Note: A&P Assessment and Plan (1) Weakness: Code(s): R53.1 - Weakness Status: Acute Assessment and Plan: Multifactorial, plan is for rehab at discharge, awaiting insurance authorization (2) Chronic kidney disease, stage IV (severe): Code(s): N18.4 - Chronic kidney disease, stage 4 (severe) Status: Chronic Assessment and Plan: Receiving hemodialysis Friday per Nephrology, this is secondary to her multiple myeloma which is being treated with chemotherapy by Oncology (3) Tremors of nervous system: Code(s): R25.1 - Tremor, unspecified Status: Acute Assessment and Plan: Re-consult Neurology, previously on primidone, she is concerned this will interact with her blood thinners, additionally, her symptoms are still moderate to severe despite being on the primidone (4) Urinary tract infection: Code(s): N39.0 - Urinary tract infection, site not specified Status: Acute Assessment and Plan: Resolving, abx d/c 08/17/21 after 8 day course of abx, 2 of rocephin, then 7 days of cefepime starting August 11, urine culture showed Pseudomonas on August 09, blood cultures negative (5) Paroxysmal atrial fibrillation: Code(s): I48.0 - Paroxysmal atrial fibrillation Status: Acute Assessment and Plan: Continue Eliquis (6) Essential and other specified forms of tremor: Code(s): G25.0 - Essential tremor; G25.2 - Other specified forms of tremor Status: Acute Assessment and Plan: Neurology consult pending (7) Hypertension: Code(s): I10 - Essential (primary) hypertension Status: Chronic Assessment and Plan: Somewhat uncontrolled, 170s/80-90s, will increase metoprolol to 50 mg and switch from tartrate to succinate 08/17: BP improved with increased dose of metoprolol succinate, 140s/60s, monitor (8) Dyslipidemia: Code(s): E78.5 - Hyperlipidemia, unspecified Status: Acute (9) Insulin dependent type 2 diabetes mellitus: Code(s): E11.9 - Type 2 diabetes mellitus without complications; Z79.4 - intermediate (current) use of insulin Status: Acute Assessment and Plan: A1c is 7, Accu-Cheks with sliding scale, glucose well controlled here, fasting glucose 115 today 08/17: FBG 136, no change to regimen (10) Obstructive sleep apnea on CPAP: Code(s): G47.33 - Obstructive sleep apnea (adult) (pediatric); Z99.89 - Dependence on other enabling machines and devices Status: Acute Assessment and Plan: CPAP in the evenings (11) Multiple myeloma: Code(s): C90.00 - Multiple myeloma not having achieved remission Status: Chronic Assessment and Plan: Appreciate oncology consultation, will begin receiving Velcade injections and discharge 08/17: concern for cost of velcade ($5K per twice weekly dose), will defer treatment plans to oncology outpatient, may need alternate regimen (12) Thrombocytopenia: Code(s): D69.6 - Thrombocytopenia, unspecified Status: Acute Assessment and Plan: Stable Additional Plan Awaiting insurance authorization, medically stable for discharge Subjective Date/time seen: 08/17/21 08:16 Review of Systems Review of Systems: 12 point review of systems was assessed and was negative except as noted in the HPI Exam Narrative: General: Patient resting comfortably in bed, no acute distress HEENT: Atraumatic, normocephalic, mucous membranes moist CV: Regular rate and rhythm, S1, S2, no murmurs rubs or gallops noted Lungs: Clear to auscultation bilaterally, no rales or crackles noted, no wheezes, good air entry Abdomen: Soft, nontender, nondistended Extremities: Normal to inspection, no edema noted, left wrist in brace Skin: No rashes noted, no lesions or wounds seen Psych: Euthymic, normal affect Neuro: Cranial nerves 2-12 grossly intact, strength 5/5 upper and lower extremities noted Objective Data Vital
[2021-08-17 08:31] LABS: Basophils Percent Auto 0.3 % (0.2-1.2); Eosinophils Absolute Auto 0.1 K/mm3 (0-0.3); Eosinophils Percent Auto 3.1 % (0-4.4); Hematocrit 27.9 % (37.0-47.0); Hemoglobin 8.6 g/dL (12.0-15.0); Immature Granulocyte Absolute 0.14 K/mm3 (0.00-0.031); Immature Granulocyte Percent A 4.8 % (0-0.5); Immature Platelet Fraction Pct 9.5 % (0.9-11.2); Lymphocytes Absolute Auto 0.87 K/mm3 (0.9-3.2); Mean Corpuscular HGB Conc 30.8 g/dl (32-36); Mean Corpuscular Hemoglobin 29.4 pg (26-34); Mean Corpuscular Volume 95.2 fl (80-100); Mean Platelet Volume 11.9 fl (7.4-10.4); Monocytes Absolute Auto 0.2 K/mm3 (0.1-0.6); Monocytes Percent Auto 6.6 % (2.6-8.5); Neutrophils Absolute Auto 1.6 K/mm3 (1.3-6.7); Neutrophils Percent Auto 55.2 % (45.5-73.1); Platelet Count Result 58 k/mm3 (150-375); Red Blood Count 2.93 M/mm3 (4.2-5.4); Red Cell Distribution Width 15.6 % (11.5-14.5); White Blood Count 2.9 K/mm3 (4.5-10.0)
[2021-08-17 09:06] LABS: Glucose Point of Care 128 mg/dl (65-105)
[2021-08-17] MEDS: OMEGA 3 POLYUNSAT FATTY ACIDS 1 GM CAP PO (09:47)
[2021-08-17] MEDS: PREGABALIN (*CRX) 75 MG CAPSULE PO (09:47)
[2021-08-17] MEDS: MAGNESIUM OXIDE 400 MG TABLET PO (09:47)
[2021-08-17] MEDS: TAMSULOSIN HCL 0.4 MG CAPSULE PO (09:48)
[2021-08-17 09:49] VITALS: PULSE 76
[2021-08-17] MEDS: APIXABAN 2.5 MG TABLET PO (09:49)
[2021-08-17] MEDS: calcitrioL 0.25 MCG CAPSULE PO (09:49)
[2021-08-17] MEDS: METOPROLOL SUCCINATE EXT REL 50 MG TABCR PO (09:49)
[2021-08-17] MEDS: ERGOCALCIFEROL 50,000 UNIT CAPSULE 50000 UNITS PO (09:49)
[2021-08-17] MEDS: PANTOPRAZOLE 40 MG TABLET PO (09:50)
[2021-08-17] MEDS: FENOFIBRATE,MICRONIZED 48 MG TABLET PO (09:50)
[2021-08-17] MEDS: ASPIRIN 81 MG CHEWABLE TABLET PO (09:50)
[2021-08-17] MEDS: PRIMIDONE 50 MG TABLET PO (09:50)
[2021-08-17] MEDS: MUPIROCIN 2% OINT 22 GM TUBE 1 APPLIC EACH NARE (09:51)
[2021-08-17] MEDS: ISOSORBIDE MONONITRATE 30 MG TAB.ER.24H PO (09:51)
--- NOTE | 2021-08-17 10:22 | WPDNEUROPN ---
Subjective Date/time seen: 08/17/21 10:22 Interval history: central tremors of long duration has been taking metoprolol 25 mg q.12 hours in addition to Lyrica 75 mg daily and primidone 50 mg in the morning and 100 mg at night complains of tremor not under control and would like to readjust the medication for that reason the primidone will be increased to 2 in the morning and 2 at night and will observe the response while she is here for other problems Objective Data Vital Signs Vital Signs: Vital Signs - 24 hr 08/16/21 14:08 08/16/21 14:20 08/16/21 18:00 Temperature 37.1 C 37.1 C Pulse Rate 76 94 Respiratory Rate 16 Blood Pressure 164/70 H 143/68 H Pulse Oximetry Oxygen Delivery 08/16/21 14:40 08/16/21 15:00 08/16/21 15:15 Temperature Pulse Rate 80 86 85 Respiratory Rate Blood Pressure 156/81 H 158/69 H 163/80 H Pulse Oximetry Oxygen Delivery 08/16/21 15:45 08/16/21 16:15 08/16/21 16:45 Temperature Pulse Rate 92 94 94 Respiratory Rate Blood Pressure 176/89 H 147/76 H 176/67 H Pulse Oximetry Oxygen Delivery 08/16/21 17:15 08/16/21 17:00 08/16/21 17:50 Temperature 36.7 C Pulse Rate 102 H 96 100 Respiratory Rate 18 Blood Pressure 160/79 H 165/89 H 161/83 H Pulse Oximetry 96 Oxygen Delivery 08/16/21 22:00 08/16/21 22:00 08/16/21 20:00 Temperature 36.4 C Pulse Rate 99 103 H 103 H Respiratory Rate 18 18 Blood Pressure 126/68 Pulse Oximetry 94 94 94 Oxygen Delivery CPAP CPAP 08/17/21 03:40 08/17/21 04:48 08/17/21 09:49 Temperature 36.4 C L Pulse Rate 91 79 76 Respiratory Rate 18 Blood Pressure 142/62 H Pulse Oximetry 94 98 Oxygen Delivery CPAP Intake/Output Intake/Output: Intake & Output 08/14/21 08/15/21 08/16/21 08/17/21 23:59 23:59 23:59 23:59 Intake Total 181 700 6345 300 Output Total 3682 1000 4000 200 Balance -0020 -175 -1640 100 Meds/Results Medications: Active Medications Generic Name Dose Route Start Last Admin Trade Name Freq PRN Reason Stop Dose Admin Albuterol 2 puff 08/09/21 16:17 Albuterol Sulfate (*Sp) Aerosol 1 Puff INHALATION Q4H PRN Shortness Of Breath Amlodipine Besylate 5 mg 08/10/21 09:00 08/16/21 18:23 Amlodipine Besylate 5 Mg Tablet PO 5 mg QAM [facility] Administration Apixaban 2.5 mg 08/09/21 17:00 08/17/21 09:49 Apixaban 2.5 Mg Tablet PO 2.5 mg BID [facility] Administration Aspirin 81 mg 08/10/21 09:00 08/17/21 09:50 Aspirin 81 Mg Chewable Tablet PO 81 mg DAILY [facility] Administration Calcitriol 0.25 mcg 08/10/21 09:00 08/17/21 09:49 Calcitriol 0.25 Mcg Capsule PO 0.25 mcg DAILY [facility] Administration Cyanocobalamin 1,000 mcg 09/04/21 09:00 Cyanocobalamin Inj 1,000 Mcg/Ml Vial SUB-Q MONTHLY [facility] Cyclobenzaprine HCl 10 mg 08/09/21 16:17 08/16/21 20:48 Cyclobenzaprine Hcl 10 Mg Tablet PO 10 mg Q12HR PRN Administration muscle spasm Dextrose 12.5 gm 08/10/21 17:19 Dextrose 50% 25 Gm/50 Ml Syringe IV PUSH PRN PRN Hypoglycemia Protocol Docusate Sodium 100 mg 08/15/21 14:02 Docusate Sodium 100 Mg Capsule PO BID PRN Constipation Epoetin Manny 20,000 units 08/18/21 17:00 Epoetin Manny 20,000 Units/Ml Vial IV PUSH TUTHSA [facility] Ergocalciferol 50,000 unit 08/10/21 09:00 08/17/21 09:49 Ergocalciferol 50,000 Unit Capsule PO 50,000 unit Fr@0900 [facility] Administration Fenofibrate 48 mg 08/10/21 09:00 08/17/21 09:50 Fenofibrate,Micronized 48 Mg Tablet PO 48 mg QAM [facility] Administration Ferrous Sulfate 648 mg 08/10/21 14:00 08/16/21 13:04 Ferrous Sulfate 324 Mg Tablet PO 648 mg 1400 [facility] Administration Fish Oil 1 gm 08/09/21 17:00 08/17/21 09:47 [place] 3 Polyunsat Fatty Acids 1 Gm Cap PO 1 gm QID JERROD Administration Glucagon 1 mg 08/10/21 17:19 Glucagon For Inj 1 Mg Vial IM PRN PRN Hypoglycemia Protocol Glucose 15 gm 07
--- NOTE | 2021-08-17 11:21 | PM.DS ---
DS: Admitting Diagnosis Discharge Date August 17, 2021 Admitting Diagnosis Generalized weakness, DS: Discharge Diagnosis Discharge Diagnosis (1) Weakness: Code(s): R53.1 - Weakness Status: Acute Assessment and Plan: Multifactorial, plan is for rehab at discharge, awaiting insurance authorization (2) Chronic kidney disease, stage IV (severe): Code(s): N18.4 - Chronic kidney disease, stage 4 (severe) Status: Chronic Assessment and Plan: Receiving hemodialysis Friday per Nephrology, this is secondary to her multiple myeloma which is being treated with chemotherapy by Oncology (3) Tremors of nervous system: Code(s): R25.1 - Tremor, unspecified Status: Acute Assessment and Plan: Re-consult Neurology, previously on primidone, she is concerned this will interact with her blood thinners, additionally, her symptoms are still moderate to severe despite being on the primidone Neurology stated that patient should continue her Lyrica and primidone and they can consider increasing the dose outpatient (4) Urinary tract infection: Code(s): N39.0 - Urinary tract infection, site not specified Status: Acute Assessment and Plan: Resolving, abx d/c 08/17/21 after 8 day course of abx, 2 of rocephin, then 7 days of cefepime starting August 11, urine culture showed Pseudomonas on August 09, blood cultures negative (5) Paroxysmal atrial fibrillation: Code(s): I48.0 - Paroxysmal atrial fibrillation Status: Acute Assessment and Plan: Continue Eliquis (6) Essential and other specified forms of tremor: Code(s): G25.0 - Essential tremor; G25.2 - Other specified forms of tremor Status: Acute Assessment and Plan: See above (7) Hypertension: Code(s): I10 - Essential (primary) hypertension Status: Chronic Assessment and Plan: Somewhat uncontrolled, 170s/80-90s, will increase metoprolol to 50 mg and switch from tartrate to succinate 08/17: BP improved with increased dose of metoprolol succinate, 140s/60s, monitor (8) Dyslipidemia: Code(s): E78.5 - Hyperlipidemia, unspecified Status: Acute (9) Insulin dependent type 2 diabetes mellitus: Code(s): E11.9 - Type 2 diabetes mellitus without complications; Z79.4 - keno terminal operator (current) use of insulin Status: Acute Assessment and Plan: A1c is 7, Accu-Cheks with sliding scale, glucose well controlled here, fasting glucose 115 today 08/17: FBG 136, no change to regimen (10) Obstructive sleep apnea on CPAP: Code(s): G47.33 - Obstructive sleep apnea (adult) (pediatric); Z99.89 - Dependence on other enabling machines and devices Status: Acute Assessment and Plan: CPAP in the evenings (11) Multiple myeloma: Code(s): C90.00 - Multiple myeloma not having achieved remission Status: Chronic Assessment and Plan: Appreciate oncology consultation, will begin receiving Velcade injections and discharge 08/17: concern for cost of velcade ($5K per twice weekly dose), will defer treatment plans to oncology outpatient, may need alternate regimen (12) Thrombocytopenia: Code(s): D69.6 - Thrombocytopenia, unspecified Status: Acute Assessment and Plan: Stable DS: Summary Hospital Course Hospital Course: See above Time Spent with Patient Time attestation: Total time spent providing and/or coordinating discharge services: Exam Narrative: General: Patient resting comfortably in bed, no acute distress HEENT: Atraumatic, normocephalic, mucous membranes moist CV: Regular rate and rhythm, S1, S2, no murmurs rubs or gallops noted Lungs: Clear to auscultation bilaterally, no rales or crackles noted, no wheezes, good air entry Abdomen: Soft, nontender, nondistended Extremities: Normal to inspection, no edema noted, left wrist in brace Skin: No rashes noted, no lesions or wounds seen Psych: Euthymic,
[2021-08-17] MEDS: amLODIPine BESYLATE 5 MG TABLET PO (11:26)
[2021-08-17 12:56] LABS: EDCOVIDSCREEN Negative (Negative)
[2021-08-17 13:02] LABS: Glucose Point of Care 229 mg/dl (65-105)
== END 2021-08-17 13:15 | DRG 689 ==
LOC: ANHED 10:44 → ANH3MEDSUR 12:34
PROVIDERS: Internal Medicine Nephrology; Admitting Provider Internal Medicine; Emergency Provider Emergency Medicine; PCP Internal Medicine; Visit Provider Student in an Organized Health Care Education/Training Program
DX: N39.0 Urinary tract infection, site not specified (principal); N18.6 End stage renal disease; I12.0 Hypertensive chronic kidney disease with stage 5 chronic kidney disease or end stage renal disease; C90.00 Multiple myeloma not having achieved remission; N17.9 Acute kidney failure, unspecified; I48.0 Paroxysmal atrial fibrillation; B96.5 Pseudomonas (aeruginosa) (mallei) (pseudomallei) as the cause of diseases classified elsewhere; Z20.822 Contact with and (suspected) exposure to COVID-19; G25.0 Essential tremor; E78.5 Hyperlipidemia, unspecified; G47.33 Obstructive sleep apnea (adult) (pediatric); D69.6 Thrombocytopenia, unspecified; M47.22 Other spondylosis with radiculopathy, cervical region; E11.21 Type 2 diabetes mellitus with diabetic nephropathy; E11.22 Type 2 diabetes mellitus with diabetic chronic kidney disease; N18.30 Chronic kidney disease, stage 3 unspecified; H35.30 Unspecified macular degeneration; D63.1 Anemia in chronic kidney disease; D63.0 Anemia in neoplastic disease; M19.90 Unspecified osteoarthritis, unspecified site; I45.10 Unspecified right bundle-branch block; R33.9 Retention of urine, unspecified; I25.10 Atherosclerotic heart disease of native coronary artery without angina pectoris; N39.46 Mixed incontinence; Z96.653 Presence of artificial knee joint, bilateral; Z79.4 Long term (current) use of insulin; Z99.2 Dependence on renal dialysis; Z98.49 Cataract extraction status, unspecified eye; Z90.49 Acquired absence of other specified parts of digestive tract; Z95.5 Presence of coronary angioplasty implant and graft
CPT/HCPCS: 36415; 51701; 80048; 80053; 80069; 81001; 82306; 82728; 82948; 83540; 83550; 83735; 85025; 85027; 85046; 85055; 87040; 87077; 87086; 87088; 87186; 87426; 93005; 94640; 96365; 96375; 97110; 97116; 97161; 97165; 97530; 97535; 99285; A9270; C9803; G0257; G0378; J0692; J0696; J1644; J1756; J1815; J2405; J7030; Q5105

== ENCOUNTER 2021-09-10 16:12 | Emergency (ER) | payer MEDICARE, MEDICAID, SELFPAY ==
--- NOTE | ~2021-09-10 | CT_ITS ---
EXAMINATION: CT abdomen pelvis wo con DATE: 09/11/2021 01:52 INDICATION: Right flank pain. Fall. TECHNIQUE: Computed tomography (CT) of the abdomen and pelvis was performed without intravenous contr ast. Automated exposure control and iterative reconstruction technique were employed. The dose-length product was 1447.78 mGy-cm. COMPARISON: CT abdomen and pelvis 07/19/2021 FINDINGS: The visualized portions of the lung bases demonstrate mild atelectasis. No pleural effusion . The heart size is normal. There are coronary artery calcifications. No pericardial effusion. The li heaven is normal. There are changes of cholecystectomy. The spleen, pancreas, and adrenal glands are nor mal. There is cortical thinning of the kidneys. There is no urolithiasis. There are no dilated loops of bowel. The appendix is normal. There are no pathologically enlarged lymph nodes. There is no free intraperitoneal fluid. There is an umbilical hernia containing fat. There is an electronic device in the subcutaneous fat in right flank with electrode in left S3 neural foramen. There is severe lumbar spondylosis. IMPRESSION: 1. No posttraumatic findings. Reviewed, dictated and finalized at location A.
--- NOTE | ~2021-09-10 | XR_ITS ---
EXAMINATION: XR foot RT min 3V DATE: 09/11/2021 03:20 INDICATION: Right foot pain. TECHNIQUE: 4 views of right foot were obtained. COMPARISON: Right foot radiographs 07/02/2013 FINDINGS: Bone alignment is normal. No fracture. There is moderate osteoarthritis of second tarsometa tarsal joint. There is mild osteoarthritis of many of the midfoot joints. There is mild to moderate o steoarthritis of most of the interphalangeal joints. There is an enthesophyte at posterior aspect of calcaneal tuberosity. IMPRESSION: 1. Polyarticular osteoarthritis. Reviewed, dictated and finalized at location A.
[2021-09-10 16:47] VITALS: BP 141/124; PULSE 90; RESP 18; TEMP 36.5; O2SAT 98
--- NOTE | 2021-09-10 19:05 | PC.NURSE ---
Spoke with Shayla from [facility]. Shayla reports that pt was up with 1 assist last week and is now being transferred with a vandana lift. Reports her tremors are getting worse and she has fell 3 times in the past week.
[2021-09-10 20:34] VITALS: BP 135/95; PULSE 102; RESP 18; TEMP 36.8; O2SAT 98
[2021-09-11 01:05] LABS: Appearance Urine Clear (Clear); Bilirubin Urine Negative (Negative); Color Urine Yellow (Yellow); Glucose Urine UA Trace mg/dL (Negative); Ketones Urine Negative (Negative); Leukocyte Esterase Ur 2+ LEU/UL (Negative); Nitrate Urine Negative (Negative); Protein Urine 2+ mg/dL (Negative); Specific Grav Ur 1.015 (1.001-1.035); Urobilinogen Urine 0.2 mg/dL (<2.0); pH Urine 8.5 (5.0-9.0)
[2021-09-11 01:06] LABS: RBC Urine 0-2 /hpf (0-2); Squamous Epithelial Cell Urine Rare /hpf (Few); WBC Urine 21-30 /hpf
[2021-09-11 01:07] LABS: Add Urine Microscopic? YES; Blood Urine Trace (Negative)
--- NOTE | 2021-09-11 01:16 | ECG_ITS ---
Measurements Intervals [place] Rate: 90 P: 0 FL: 156 QRS: -73 QRSD: 140 T: 9 QT: 396 QTc: 485 Interpretive Statements SINUS RHYTHM WITH OCCASIONAL SUPRAVENTRICULAR PREMATURE COMPLEXES RIGHT BUNDLE BRANCH BLOCK LEFT ANTERIOR FASCICULAR BLOCK Electronically Signed On 09-11-2021 11:40:22 CDT by Marcio Sheets M.D.
--- NOTE | 2021-09-11 01:30 | ED.FALL ---
HPI - Fall General Chief Complaint: Fall <Adriana Antony PA-C - Last Filed: 09/11/21 03:46> Stated Complaint: fall <Adriana Antony PA-C - Last Filed: 09/11/21 03:46> Time Seen by Provider: 09/11/21 01:12 <Adriana Antony PA-C - Last Filed: 09/11/21 03:46> History of Present Illness HPI Narrative: Patient is 70-year-old female with history of multiple myeloma receiving chemotherapy, ckd4 on hemodialysis, here from her nursing facility for evaluation of multiple syncopal episodes of the past several days. Patient states that she will feel weak when she is standing, which leads her to fall. She denies any head injury or loss of consciousness. No prodromal chest pain, shortness of breath, headaches, visual changes prior to the fall. Today, she fell again after receiving dialysis which prompted her ED evaluation. Notes right foot pain and chronic back pain since the falls. She was admitted at the end of August for weakness and was discharged to rehab facility which is where is currently living. Patient additionally complaining of some chronic intentional tremors in her bilateral upper extremities, has been seen by Dr. Badillo, neurologist, during her previous admission, and is on Lyrica and primidone. She states that the medication is not helping her tremors. Has not yet followed up with Dr. Badillo as an outpatient after her admission at the end of August. <Adriana Antony PA-C - Last Filed: 09/11/21 03:46> Related Data Home Medications: Home Medications Medication Instructions Recorded Confirmed cholecalciferol (vitamin D3) 1,250 50,000 unit PO WEEKLY 02/12/19 09/06/21 mcg (50,000 unit) capsule cyanocobalamin (vitamin B-12) 1,000 mcg subcut MONTHLY 02/12/19 09/06/21 1,000 mcg/mL injection kit isosorbide mononitrate 30 mg 30 mg PO DAILY 02/12/19 09/06/21 tablet,extended release 24 hr pantoprazole 40 mg tablet,delayed 40 mg PO QAM 02/12/19 09/06/21 release ferrous sulfate 325 mg (65 mg 650 mg PO DAILY 08/03/19 09/06/21 iron) tablet albuterol sulfate 90 mcg/actuation 2 puff inhalation Q4H PRN 12/09/19 09/06/21 aerosol inhaler (ProAir HFA) Shortness Of Breath sertraline 50 mg tablet (Zoloft) 50 mg PO HS 12/09/19 09/06/21 albuterol sulfate 0.63 mg/3 mL 0.63 mg inhalation Q6H PRN wheezes 10/18/20 09/06/21 solution for nebulization aspirin 81 mg tablet 81 mg PO DAILY 10/18/20 09/06/21 cetirizine 10 mg tablet (Zyrtec) 10 mg PO DAILY PRN Allergy Symptoms 10/18/20 09/06/21 icosapent ethyl 1 gram capsule 1 g PO QID 10/18/20 09/06/21 (Vascepa) mometasone-formoterol HFA 200 2 puff inhalation BID 10/18/20 09/06/21 mcg-5 mcg/actuation aerosol inhaler (Dulera) tiotropium bromide 1.25 2 puff inhalation DAILY 10/18/20 09/06/21 mcg/actuation mist for inhalation (Spiriva Respimat) magnesium oxide 400 mg PO BID 02/13/21 09/06/21 calcitriol 0.25 mcg capsule 0.25 mcg PO DAILY 04/10/21 09/06/21 montelukast 10 mg tablet 10 mg PO DAILY PRN Allergy Symptoms 04/15/21 09/06/21 (Singulair) fenofibrate 54 mg tablet 54 mg PO DAILY 04/24/21 09/06/21 primidone 50 mg tablet 100 mg PO HS 08/17/21 09/06/21 dexamethasone 20 mg tablet 40 mg PO WEEKLY 08/22/21 09/06/21 ondansetron HCl 8 mg tablet 8 mg PO Q8H PRN Nausea 08/22/21 09/06/21 <Adriana Antony PA-C - Last Filed: 09/11/21 03:46> Allergies/Adverse Reactions: Allergies Allergy/AdvReac Type Severity Reaction Status Date / Time celecoxib Allergy Intermediate TACHYCARDIA Verified 09/06/21 13:30 iohexol Allergy Intermediate Hives/Red Verified 09/06/21 13:30 [From contrast - CT, X-RAY] face ibuprofen Allergy Unknown Other Verified 09/06/21 13:30 iodine Allergy Unknown Other Verified 09/06/21 13:30 midazolam Allergy Unknown AMNESIA Verified 09/06/21 13:30 AFTER SURGERY Penicillins Allergy Unknown Other Verified 09/06/21 13:30 <Adriana Antony PA-C - Last Filed: 09/11/21 03:46> Review of Systems
[2021-09-11 01:36] VITALS: BP 154/73; PULSE 91; RESP 18; O2SAT 96
--- NOTE | 2021-09-11 01:40 | PC.NURSE ---
Pt to CT at this time.
[2021-09-11 02:20] LABS: Basophils Percent Auto 0.3 % (0.2-1.2); Eosinophils Absolute Auto 0.1 K/mm3 (0-0.3); Eosinophils Percent Auto 2.2 % (0-4.4); Hematocrit 23.9 % (37.0-47.0); Hemoglobin 7.4 g/dL (12.0-15.0); Immature Granulocyte Absolute 0.18 K/mm3 (0.00-0.031); Lymphocytes Absolute Auto 1.03 K/mm3 (0.9-3.2); Lymphocytes Percent Auto 28.6 % (18.3-44.2); Mean Corpuscular Hemoglobin 30.1 pg (26-34); Mean Corpuscular Volume 97.2 fl (80-100); Mean Platelet Volume 12.2 fl (7.4-10.4); Monocytes Absolute Auto 0.3 K/mm3 (0.1-0.6); Monocytes Percent Auto 8.3 % (2.6-8.5); Neutrophils Percent Auto 55.6 % (45.5-73.1); Platelet Count Result 59 k/mm3 (150-375); Red Blood Count 2.46 M/mm3 (4.2-5.4); Red Cell Distribution Width 16.7 % (11.5-14.5); White Blood Count 3.6 K/mm3 (4.5-10.0)
[2021-09-11 02:39] LABS: Anisocytosis 1+ (NORMAL); Hypochromasia 1+ (NORMAL); Ovalocytes 2+ (NORMAL); Platelet Estimate Decreased (Adequate); Stomatocytes 1+ (NORMAL)
[2021-09-11 02:48] LABS: Alanine Aminotransferase 9 U/L (6-35); Albumin Level 4.3 g/dL (3.5-5.1); Alkaline Phosphatase 80 U/L (38-126); Anion Gap 11 mmol/L (8-16); Aspartate Amino Transferase 20 U/L (14-36); Bilirubin,Total 0.5 mg/dL (0.2-1.3); Blood Urea Nitrogen 33 mg/dL (7-17); Calcium 8.7 mg/dL (8.4-10.2); Carbon Dioxide 37 mmol/L (22-30); Chloride 88 mmol/L (98-107); Estimated CRCL calculation 10 ml/min; Estimated Glomerular Filt Rate 7; Glucose 103 mg/dL (65-110); Potassium 4.7 mmol/L (3.4-5.0); Sodium 136 mmol/L (137-145)
[2021-09-11 03:21] VITALS: BP 151/54; PULSE 91; RESP 12; O2SAT 95
[2021-09-11 05:36] VITALS: BP 154/50; PULSE 92; RESP 17; O2SAT 100
== END 2021-09-11 05:38 ==
PROVIDERS: Physician Assistant; Emergency Provider Preventive Medicine Aerospace Medicine; PCP Internal Medicine
DX: D64.9 Anemia, unspecified (principal); D61.818 Other pancytopenia; R53.1 Weakness; C90.00 Multiple myeloma not having achieved remission; M79.671 Pain in right foot; M54.9 Dorsalgia, unspecified; W19.XXXA Unspecified fall, initial encounter; R29.6 Repeated falls; I12.9 Hypertensive chronic kidney disease with stage 1 through stage 4 chronic kidney disease, or unspecified chronic kidney disease; E11.22 Type 2 diabetes mellitus with diabetic chronic kidney disease; N18.4 Chronic kidney disease, stage 4 (severe); Z99.2 Dependence on renal dialysis; I48.0 Paroxysmal atrial fibrillation; I45.10 Unspecified right bundle-branch block; I44.4 Left anterior fascicular block; G47.33 Obstructive sleep apnea (adult) (pediatric); E78.5 Hyperlipidemia, unspecified; M47.812 Spondylosis without myelopathy or radiculopathy, cervical region; I25.10 Atherosclerotic heart disease of native coronary artery without angina pectoris; K21.9 Gastro-esophageal reflux disease without esophagitis; M10.9 Gout, unspecified; N39.46 Mixed incontinence; H35.30 Unspecified macular degeneration; Z86.14 Personal history of Methicillin resistant Staphylococcus aureus infection; Z95.5 Presence of coronary angioplasty implant and graft; Z79.51 Long term (current) use of inhaled steroids; Z79.82 Long term (current) use of aspirin; Z79.01 Long term (current) use of anticoagulants; Z79.4 Long term (current) use of insulin
CPT/HCPCS: 36415; 73630; 74176; 80053; 81001; 85025; 85055; 87086; 87088; 93005; 99284

== ENCOUNTER 2021-09-18 06:53 | Outpatient (RCR) | payer MEDICARE, MEDICAID, SELFPAY ==
[2021-09-18] VITALS (10 sets, daily range): BP systolic 130–160; BP diastolic 55–71; PULSE 73–88; RESP 16–18; TEMP 36.2–36.5; O2SAT 95–100
[2021-09-18 07:52] LABS: Hematocrit 20.5 % (37.0-47.0); Hemoglobin 6.4 g/dL (12.0-15.0)
--- NOTE | 2021-09-18 08:03 | PC.NURSE ---
Informed primary KENNETH Mendoza of critical H & H 6.05/30.5 called by lab at 0752.
[2021-09-18] MEDS: diphenhydrAMINE HCl CAP 25 MG CAPSULE PO (08:53)
[2021-09-18] MEDS: ACETAMINOPHEN 325 MG TABLET 650 MG PO (08:53)
[2021-09-18] MEDS: SODIUM CHLORIDE 0.9% IV 250 ML 30 ML (08:54)
[2021-09-18] MEDS: FUROSEMIDE INJ 40 MG/4 ML VIAL 20 MG IV PUSH (12:20)
== END 2021-12-17 23:59 | disposition home or self-care (01) ==
LOC: ANHCPCTRAN 06:53
PROVIDERS: PCP Internal Medicine; Visit Provider Internal Medicine Hematology & Oncology
DX: N18.30 Chronic kidney disease, stage 3 unspecified (principal); D63.1 Anemia in chronic kidney disease; D47.2 Monoclonal gammopathy
CPT/HCPCS: 36415; 36430; 85014; 85018; 86850; 86900; 86901; 86920; 96374; A9270; J1940; J7050; P9016

== ENCOUNTER 2021-09-28 10:16 | Emergency (ER) | payer MEDICARE, MEDICAID, SELFPAY ==
--- NOTE | ~2021-09-28 | XR_ITS ---
EXAMINATION: XR chest 2V DATE: 09/28/2021 12:43 INDICATION: Weakness, increasing tremors, history of coronary artery disease TECHNIQUE: AP and lateral views of the chest are obtained. COMPARISON: 07/21/2021 FINDINGS: Cardiomegaly is noted. A large bore right internal subclavian central venous catheter ends with its tip in distal superior vena cava. There is a mild diffuse interstitial pattern. No pleural e ffusion or pneumothorax. Surgical clips in the right upper quadrant are likely from prior cholecystec albert. There is mild thoracic spondylosis. IMPRESSION: 1. Cardiomegaly with mild pulmonary edema. Reviewed, dictated and finalized at location A.
--- NOTE | ~2021-09-28 | CT_ITS ---
EXAMINATION: CT brain wo con DATE: 09/28/2021 11:07 INDICATION: Increased tremors. TECHNIQUE: Computed tomography (CT) of the head was performed without intravenous contrast. The dose- length product was 908.00 mGy-cm. Automated exposure control and iterative reconstruction technique w ere employed. COMPARISON: CT dated 10/18/2020 FINDINGS: No acute intracranial hemorrhage, infarction, mass or mass effect. Mild generalized atrophy . There are scattered mild periventricular and subcortical white matter changes, most likely related to small vessel ischemic disease (microangiopathy). Paranasal sinuses and mastoids are pneumatized. N o depressed skull fractures. IMPRESSION: 1. No acute intracranial abnormality. Reviewed, dictated and finalized at location B.
[2021-09-28 10:19] VITALS: BP 109/52; PULSE 66; RESP 15; TEMP 36.4; O2SAT 99
--- NOTE | 2021-09-28 10:24 | ED.NEUROSD ---
HPI - Neuro Symptoms/Deficit General Chief Complaint: Neuro Symptoms/Deficit Stated Complaint: worsening tremors History of Present Illness HPI Narrative: 70-year-old female with a history of stage IV chronic kidney disease and multiple myeloma receiving chemotherapy treatment presents to the emergency room for worsening tremors. Patient presents from a nursing care unit where she receives partial care, complaining of worsening generalized tremors. Patient has had a known tremor disorder for the last 3 years with for which she takes primidone for. Patient denies any known recent injury or trauma. Denies any medication changes. Denies any URI symptoms, cough, dysuria, abdominal pain or chest pain. Patient is a dialysis patient on Friday and has missed today Related Data Home Medications Medication Instructions Recorded Confirmed cholecalciferol (vitamin D3) 1,250 50,000 unit PO WEEKLY 02/12/19 09/06/21 mcg (50,000 unit) capsule cyanocobalamin (vitamin B-12) 1,000 mcg subcut MONTHLY 02/12/19 09/06/21 1,000 mcg/mL injection kit isosorbide mononitrate 30 mg 30 mg PO DAILY 02/12/19 09/06/21 tablet,extended release 24 hr pantoprazole 40 mg tablet,delayed 40 mg PO QAM 02/12/19 09/06/21 release ferrous sulfate 325 mg (65 mg 650 mg PO DAILY 08/03/19 09/06/21 iron) tablet albuterol sulfate 90 mcg/actuation 2 puff inhalation Q4H PRN 12/09/19 09/06/21 aerosol inhaler (ProAir HFA) Shortness Of Breath sertraline 50 mg tablet (Zoloft) 50 mg PO HS 12/09/19 09/06/21 albuterol sulfate 0.63 mg/3 mL 0.63 mg inhalation Q6H PRN wheezes 10/18/20 09/06/21 solution for nebulization aspirin 81 mg tablet 81 mg PO DAILY 10/18/20 09/06/21 cetirizine 10 mg tablet (Zyrtec) 10 mg PO DAILY PRN Allergy Symptoms 10/18/20 09/06/21 icosapent ethyl 1 gram capsule 1 g PO QID 10/18/20 09/06/21 (Vascepa) mometasone-formoterol HFA 200 2 puff inhalation BID 10/18/20 09/06/21 mcg-5 mcg/actuation aerosol inhaler (Dulera) tiotropium bromide 1.25 2 puff inhalation DAILY 10/18/20 09/06/21 mcg/actuation mist for inhalation (Spiriva Respimat) magnesium oxide 400 mg PO BID 02/13/21 09/06/21 calcitriol 0.25 mcg capsule 0.25 mcg PO DAILY 04/10/21 09/06/21 montelukast 10 mg tablet 10 mg PO DAILY PRN Allergy Symptoms 04/15/21 09/06/21 (Singulair) fenofibrate 54 mg tablet 54 mg PO DAILY 04/24/21 09/06/21 primidone 50 mg tablet 100 mg PO HS 08/17/21 09/06/21 dexamethasone 20 mg tablet 40 mg PO WEEKLY 08/22/21 09/06/21 ondansetron HCl 8 mg tablet 8 mg PO Q8H PRN Nausea 08/22/21 09/06/21 Allergies Allergy/AdvReac Type Severity Reaction Status Date / Time celecoxib Allergy Intermediate TACHYCARDIA Verified 09/18/21 09:13 iohexol Allergy Intermediate Hives/Red Verified 09/18/21 09:13 [From contrast - CT, X-RAY] face ibuprofen Allergy Unknown Other Verified 09/18/21 09:13 iodine Allergy Unknown Other Verified 09/18/21 09:13 midazolam Allergy Unknown AMNESIA Verified 09/18/21 09:13 AFTER SURGERY Penicillins Allergy Unknown Other Verified 09/18/21 09:13 Review of Systems Review of Systems: CONSTITUTIONAL: Denies fever, chills, or sweats. EYES: Denies visual changes, redness, or discharge. ENT: Denies rhinorrhea, congestion, sore throat, or otalgia. CARDIOVASCULAR: Denies chest pain, palpitations, or edema. RESPIRATORY: Denies cough or dyspnea. GASTROINTESTINAL: Denies abdominal pain, nausea, vomiting, or diarrhea. GENITOURINARY: Denies dysuria or hematuria. SKIN: Denies rash or itching. MUSCULOSKELETAL: Denies back pain, joint pain, or myalgia. NEUROLOGIC: Reports worsening tremors PSYCHIATRIC: Denies anxiety or depression. PMFSH Past Medical History Medical History Acute neck pain Cervical spondylosis with radiculopathy Chronic anemia Chronic kidney disease, stage 3 Coronary artery disease Degenerative disc disease Dyslipidemia Gastric polyp Gastroesophageal re
[2021-09-28 11:57] LABS: Hematocrit 24.7 % (37.0-47.0); Hemoglobin 7.8 g/dL (12.0-15.0); Immature Platelet Fraction Pct 13.2 % (0.9-11.2); Mean Corpuscular HGB Conc 31.6 g/dl (32-36); Mean Corpuscular Hemoglobin 29.5 pg (26-34); Mean Corpuscular Volume 93.6 fl (80-100); Mean Platelet Volume 11.7 fl (7.4-10.4); Platelet Count Result 37 k/mm3 (150-375); Red Blood Count 2.64 M/mm3 (4.2-5.4); White Blood Count 4.2 K/mm3 (4.5-10.0)
[2021-09-28 12:15] LABS: Alanine Aminotransferase 10 U/L (6-35); Albumin Level 3.5 g/dL (3.5-5.1); Alkaline Phosphatase 65 U/L (38-126); Anion Gap 13 mmol/L (8-16); Aspartate Amino Transferase 16 U/L (14-36); Bilirubin,Total 0.4 mg/dL (0.2-1.3); Blood Urea Nitrogen 68 mg/dL (7-17); Calcium 7.4 mg/dL (8.4-10.2); Carbon Dioxide 28 mmol/L (22-30); Chloride 87 mmol/L (98-107); Estimated Glomerular Filt Rate 5; Glucose 108 mg/dL (65-110); Potassium 5.2 mmol/L (3.4-5.0); Sodium 128 mmol/L (137-145)
[2021-09-28 12:21] LABS: Band Neutrophils Percent 7 % (0-6); Lymphocytes Absolute Manual 0.58 K/mm3 (1.1-4.5); Monocytes Absolute Manual 0.21 K/mm3 (0.1-0.90); Monocytes Percent Manual 5 % (3-9); Myelocytes Percent 2 %; Neutrophils Absolute Manual 3.31 K/mm3 (1.7-7.2); Neutrophils Percent Manual 72 % (46-73); Platelet Estimate Decreased (Adequate); Total Cells Counted 100
[2021-09-28 12:22] LABS: Anisocytosis 1+ (NORMAL); Ovalocytes 1+ (NORMAL)
[2021-09-28 12:25] VITALS: BP 126/76; PULSE 66; RESP 18; O2SAT 98
[2021-09-28 12:27] LABS: Troponin I 0.022 ng/mL (0.000-0.034)
[2021-09-28 12:44] LABS: Appearance Urine Clear (Clear); Bilirubin Urine Negative (Negative); Blood Urine Trace-lysed (Negative); Color Urine Yellow (Yellow); Glucose Urine UA Negative (Negative); Ketones Urine Negative (Negative); Leukocyte Esterase Ur Negative LEU/UL (Negative); Nitrate Urine Negative (Negative); Protein Urine 2+ mg/dL (Negative); Specific Grav Ur 1.015 (1.001-1.035); Urobilinogen Urine 0.2 mg/dL (<2.0); pH Urine 8.5 (5.0-9.0)
[2021-09-28 12:53] LABS: Mucus Urine Rare /lpf; RBC Urine 0-2 /hpf (0-2); WBC Urine 0-3 /hpf
[2021-09-28 12:54] LABS: Add Urine Microscopic? YES
--- NOTE | 2021-09-28 14:11 | WPDNEURCNPN ---
Assessment and Plan Assessment and plan (1) Tremors of nervous system: Code(s): R25.1 - Tremor, unspecified Status: Acute Plan Ms. Nix is a 70 year old female with multiple medical problems including CHANDLER, DM, HTN, multiple myeloma, renal failure presenting for worsening of her tremors. Unclear how much primidone she is getting at rehab, but with her current renal status I would not increase any further and keep it at the most recent recommended dose which was 50mg in the morning and 100mg qhs. Additionally, she has frequent negative myoclonus on exam which is likely related to her uremia, but can also induced by Lyrica in patients with renal failure. - Recommend reducing Lyrica to 75mg qhs (dosing based on her CrCl) - Follow-up with Dr. Badillo as scheduled Consult date: 09/28/21 Time Seen: 14:12 Reason for consult: Increasing tremor HPI: Jaimie Nix is a 70 year old female with a history of ESRD, DM, HTN, atrial fibrillation, and tremor who presents with worsening tremor. She was brought over from rehab. She has recently been in rehab due to generalized weakness. Patient reports her tremors have worsened over the past few weeks. She denies any recent illness. Most recent labs show BUN of 68 and CrCl of 9. For her tremor in her chart it is documented that she is supposed to take 50mg in the morning and 100mg qhs per Dr. Badillo's last note. However, patient seems to be unsure about how much she is actually getting and reported 150mg BID. She is also on Lyrica 75mg BID. She had a CT head done in the ED which was negative for any acute pathology. Review of Systems Constitutional: Constitutional: Reports weakness Eyes: Comments: R eye vision loss (chronic) ENT: Reports Normal hearing present Cardiovascular: Cardiovascular: Reports no additional cardiovascular complaints Respiratory: Respiratory: Reports no additional respiratory complaints Gastrointestinal: Gastrointestinal: Reports diarrhea Genitourinary: Genitourinary: Reports urinary incontinence Musculoskeletal: Musculoskeletal: Reports back pain Integumentary/Breasts: Skin/Breast: Reports system reviewed and no additional complaints, except as docu Neurologic: Reports as per HPI Psychiatric: Psychiatric: Reports no additional psychiatric complaints PMFSH Past Medical History Medical History Acute neck pain Cervical spondylosis with radiculopathy Chronic anemia Chronic kidney disease, stage 3 Coronary artery disease Degenerative disc disease Dyslipidemia Gastric polyp Gastroesophageal reflux disease Gout History of MRSA infection Hypertension Insulin dependent type 2 diabetes mellitus Lichen sclerosus Macular degeneration Mixed stress and urge urinary incontinence Multiple myeloma Obstructive sleep apnea on CPAP Osteoarthritis Paroxysmal atrial fibrillation Right bundle branch block Surgical History Surgical History History of arthroscopy of left knee History of bilateral knee arthroplasty History of bladder surgery Status post sling and InterStim. History of cardiac catheterization History of cataract extraction History of cholecystectomy History of coronary artery stent placement History of spinal surgery x4 Status post bilateral foot surgery Bone spur removal. Family History Family History Mother Hypertension, Onset Age: 86 Family history of elevated blood lipids, Onset Age: 86 Patient's mother is Grandparent Cerebrovascular accident, Onset Age: 76 Diabetes mellitus, Onset Age: 84 Father Family history of coronary artery disease, Onset Age: 49 Patient's father is Social History Social History Social History: Surrogate decision maker: Kristine Tolliver, sister. Code
--- NOTE | 2021-09-28 17:19 | PC.NURSE ---
Strategic Debriefing Officer spoke with KENNETH Moran at [facility] regarding transportation to dialysis tomorrow. KENNETH Moran trying to arrange transportation but no transportation at this time.
--- NOTE | 2021-09-28 17:42 | PC.NURSE ---
KENNETH Moran from [facility] returned call and informed process description writer that she was able to arrange transport for patient to make it to dialysis tomorrow in [facility] at 0645.
--- NOTE | 2021-09-28 18:11 | PC.NURSE ---
[facility] cancelled at [facility] accepted return eta 1939 trip #[phone]
[2021-09-28 21:10] VITALS: BP 155/72; PULSE 75; RESP 18; O2SAT 98
== END 2021-09-28 21:10 ==
PROVIDERS: Emergency Provider Nurse Practitioner Family; PCP Internal Medicine
DX: G25.3 Myoclonus (principal); E11.22 Type 2 diabetes mellitus with diabetic chronic kidney disease; T42.6X5A Adverse effect of other antiepileptic and sedative-hypnotic drugs, initial encounter; C90.00 Multiple myeloma not having achieved remission; N18.6 End stage renal disease; I12.9 Hypertensive chronic kidney disease with stage 1 through stage 4 chronic kidney disease, or unspecified chronic kidney disease; D64.9 Anemia, unspecified; E78.5 Hyperlipidemia, unspecified; I25.10 Atherosclerotic heart disease of native coronary artery without angina pectoris; I48.0 Paroxysmal atrial fibrillation; K21.9 Gastro-esophageal reflux disease without esophagitis; H35.30 Unspecified macular degeneration; N39.46 Mixed incontinence; G47.33 Obstructive sleep apnea (adult) (pediatric); M19.90 Unspecified osteoarthritis, unspecified site; Z99.2 Dependence on renal dialysis; Z96.653 Presence of artificial knee joint, bilateral; Z98.49 Cataract extraction status, unspecified eye; Z95.5 Presence of coronary angioplasty implant and graft; Z86.14 Personal history of Methicillin resistant Staphylococcus aureus infection; Z79.899 Other long term (current) drug therapy; Z79.82 Long term (current) use of aspirin; Z79.4 Long term (current) use of insulin; I51.7 Cardiomegaly
CPT/HCPCS: 36415; 51701; 70450; 71046; 80053; 81001; 84484; 85025; 85055; 99284

== ENCOUNTER 2021-10-16 07:43 | Outpatient (RCR) | payer MEDICARE, MEDICAID, SELFPAY ==
[2021-10-16] MEDS: ACETAMINOPHEN 325 MG TABLET 650 MG PO (08:22)
[2021-10-16] MEDS: diphenhydrAMINE HCl CAP 25 MG CAPSULE PO (08:22)
[2021-10-16 08:23] LABS: Hemoglobin 8.4 g/dL (12.0-15.0)
[2021-10-16 09:40] VITALS: BP 184/74; PULSE 84; RESP 16; TEMP 37.1; O2SAT 99
[2021-10-16 09:55] VITALS: BP 187/69; PULSE 91; RESP 16; TEMP 36.6; O2SAT 95
[2021-10-16 10:55] VITALS: BP 179/99; PULSE 98; RESP 16; TEMP 36.7; O2SAT 99
[2021-10-16 11:55] VITALS: BP 180/93; PULSE 93; RESP 17; TEMP 36.3; O2SAT 98
--- NOTE | 2021-10-16 12:06 | PC.NURSE ---
Pt sitting in bed, playing cards with her sister. Pt reports need to use restroom, up to liliana leon with assistance of this RN, pt taken to restroom and back without difficulty, pt resting in bed, awaiting meal tray, denies pain, side rails up x 2, call light within reach, VSS, NAD noted.
[2021-10-16 12:55] VITALS: BP 164/94; PULSE 94; RESP 16; TEMP 36.7; O2SAT 97
== END 2022-01-14 23:59 | disposition home or self-care (01) ==
LOC: ANHCPCTRAN 07:43
PROVIDERS: PCP Internal Medicine; Visit Provider Internal Medicine Hematology & Oncology
DX: N18.31 Chronic kidney disease, stage 3a (principal); D63.1 Anemia in chronic kidney disease
CPT/HCPCS: 36415; 36430; 85014; 85018; 86850; 86900; 86901; 86920; A9270; P9016

== ENCOUNTER 2021-11-15 08:29 | Inpatient (IN) | payer MEDICARE, MEDICAID, SELFPAY ==
[2021-11-15] VITALS (25 sets, daily range): BP systolic 117–185; BP diastolic 69–106; PULSE 83–115; RESP 11–20; TEMP 36.6–37.1; O2SAT 94–100; BMI 39.4
--- NOTE | ~2021-11-15 | CT_ITS ---
EXAMINATION: CT brain wo con DATE: 11/15/2021 10:43 INDICATION: Decreased level of consciousness. Facial droop and slurred speech. TECHNIQUE: Computed tomography (CT) of the head was performed without intravenous contrast. Sagittal and coronal reconstructions were performed. The mA was adjusted according to patient size. Iterative reconstruction technique was employed. The dose-length product was 681.00 mGy-cm. COMPARISON: head CT dated 09/28/2021 FINDINGS: No acute intracranial hemorrhage, acute infarction or abnormal extra axial fluid collection. There is mild scattered white matter hypoattenuation consistent with chronic small vessel ischemic disease. S ymmetric prominence of the sulci consistent with mild age-appropriate diffuse cerebral volume loss. V entricles are normal and symmetric. No mass/mass effect. Changes of bilateral intraocular lens replac ement. The orbits and mastoid air cells are normal. Mild mucosal thickening in the bilateral ethmoid sinuses. Intracranial calcified cerebral atherosclerosis is noted. IMPRESSION: 1. No acute intracranial process. 2. Stable appearance of age-related changes including mild diffuse on loss and mild scattered white m atter hypoattenuation consistent with chronic small vessel ischemic disease. Reviewed, dictated and finalized at location A. IMPRESSION: 1. No acute intracranial process. 2. Stable appearance of age-related changes including mild diffuse on loss and mild scattered white matter hypoattenuation consistent with chronic small vesse l ischemic disease.
--- NOTE | ~2021-11-15 | CT_ITS ---
EXAMINATION: CT chest abdomen pelvis wo con DATE: 11/15/2021 13:46 INDICATION: Sepsis. Anemia. TECHNIQUE: Computed tomography (CT) of the chest, abdomen, and pelvis was performed without intraveno us contrast. Automated exposure control and iterative reconstruction technique were employed. The dos e-length product was 1995.82 mGy-cm. COMPARISON: CT abdomen and pelvis 09/11/2021 FINDINGS: CHEST CT: There is mild atelectasis bilaterally. There is smooth septal thickening in the lungs, consistent wit h mild pulmonary edema. No pleural effusion. There is a right internal jugular central venous cathete r with tip at superior cavoatrial junction. The heart size is normal. There are coronary artery calci fications. There is a small pericardial effusion. There is severe cervical spondylosis and mild thora cic spondylosis. ABDOMEN/PELVIS CT: The liver is normal. There are changes of cholecystectomy. The spleen, pancreas, and adrenal glands a re normal. There are approximately three 1 mm stones in right kidney. There are approximately two 1 m m stones in left kidney. The bladder is decompressed by a Child catheter. There is liquid stool in th e colon suggesting diarrhea. The colon is mildly distended, consistent with adynamic ileus. The appen ronny is normal. There is an umbilical hernia containing fat. There are no pathologically enlarged lymp h nodes. There is no free intraperitoneal fluid. There is an electrode in left S3 neural foramen. The re is severe lumbar spondylosis. IMPRESSION: 1. Mild pulmonary edema. 2. Small pericardial effusion. 3. Mildly distended colon, consistent with adynamic ileus. Reviewed, dictated and finalized at location A.
--- NOTE | ~2021-11-15 | BM_ITS ---
EXAMINATION: CCL bone marrow asp w bx diag DATE: 11/20/2021 09:32 INDICATION: Chronic anemia. TECHNIQUE: A time-out was performed to verify the patient's name, date of , and procedure to b e performed. The procedure including the risks, benefits, and alternatives was discussed with the pat ient. Risks discussed included bleeding and infection. The patient understood the risks and agreed to proceed. The skin overlying the left ilium was prepped and draped in usual sterile fashion. Anesth etic was administered with 1% lidocaine subcutaneously. An 11 gauge needle was inserted into the iliu m with fluoroscopic guidance. Bone marrow was aspirated. An 8 gauge needle was then inserted into the ilium with fluoroscopic guidance. A core bone marrow biopsy was obtained. There were no immediate co mplications. Fluoroscopy exposure time was 0.1 minutes. The total number of images was 22. FINDINGS: Real-time fluoroscopy demonstrates a marker overlying the left posterior superior iliac spi ne. IMPRESSION: 1. Fluoro-guided bone marrow aspiration. 2. Fluoro-guided bone marrow core biopsy. Reviewed, dictated and finalized at location A.
--- NOTE | ~2021-11-15 | XR_ITS ---
EXAMINATION: XR chest 1V portable DATE: 11/15/2021 10:28 INDICATION: Altered mental status. TECHNIQUE: A single frontal view of the chest was obtained on 2 radiographs. COMPARISON: Chest 2 views 09/28/2021, CT abdomen and pelvis 09/11/2021 FINDINGS: There is a diffuse interstitial pattern in the lungs, consistent with mild pulmonary edema. No pleural effusion or pneumothorax. Cardiomegaly is noted. There is a right internal jugular centra l venous catheter with tip at superior cavoatrial junction. IMPRESSION: 1. Mild pulmonary edema. 2. Cardiomegaly. Reviewed, dictated and finalized at location A.
--- NOTE | 2021-11-15 08:39 | ECG_ITS ---
Measurements Intervals [place] Rate: 105 P: 213 MA: 147 QRS: -74 QRSD: 157 T: 8 QT: 321 QTc: 425 Interpretive Statements SINUS TACHYCARDIA RIGHT BUNDLE BRANCH BLOCK [120+ ms QRS DURATION, UPRIGHT V1, 40+ ms S IN I/aVL/V4/V5/V6] LEFT ANTERIOR FASCICULAR BLOCK [QRS AXIS <= -45, QR IN I, RS IN II] COMPARED TO ECG 09/11/2021 02:09:44 SINUS TACHYCARDIA NOW PRESENT Electronically Signed On 11-15-2021 17:22:16 CDT by Jah German M.D.
--- NOTE | 2021-11-15 08:43 | PC.NURSE ---
BS 115
[2021-11-15 08:46] LABS: Glucose Point of Care 115 mg/dl (65-105)
--- NOTE | 2021-11-15 09:16 | PC.NURSE ---
Adriana Au at bedside; positive blood in stool
--- NOTE | 2021-11-15 09:26 | ED.AMS ---
HPI - Altered Mental Status General Chief Complaint: Altered Mental Status Stated Complaint: AMS, unknown LKW Time Seen by Provider: 11/15/21 09:18 History of Present Illness HPI narrative: 71-year-old female with a history of end-stage renal disease on hemodialysis, essential tremor, multiple myeloma here for evaluation of altered mental status. She was sent here from her chemo site acting altered, confused, pale. last known normal is unknown; patient resides in a nursing facility. Baseline ANO x4, currently oriented x1. Does not provide any reliable history or follow commands currently. Patient's niece is in the room with provide some history, apparently patient was recently admitted to an outside hospital for infected dialysis port and C. difficile, she had the port removed and currently is getting dialysis through a tunneled HD catheter. She was discharged about a week ago but has been somewhat confused since then, not completely back at her baseline. She was talking and alert and oriented yesterday. Related Data Home Medications Medication Instructions Recorded Confirmed cholecalciferol (vitamin D3) 1,250 50,000 unit PO WEEKLY 02/12/19 10/18/21 mcg (50,000 unit) capsule cyanocobalamin (vitamin B-12) 1,000 mcg subcut MONTHLY 02/12/19 10/18/21 1,000 mcg/mL injection kit isosorbide mononitrate 30 mg 30 mg PO DAILY 02/12/19 10/18/21 tablet,extended release 24 hr pantoprazole 40 mg tablet,delayed 40 mg PO QAM 02/12/19 10/18/21 release albuterol sulfate 90 mcg/actuation 2 puff inhalation Q4H PRN 12/09/19 10/18/21 aerosol inhaler (ProAir HFA) Shortness Of Breath albuterol sulfate 0.63 mg/3 mL 0.63 mg inhalation Q6H PRN wheezes 10/18/20 10/18/21 solution for nebulization icosapent ethyl 1 gram capsule 1 g PO QID 10/18/20 10/18/21 (Vascepa) mometasone-formoterol HFA 200 2 puff inhalation BID 10/18/20 10/18/21 mcg-5 mcg/actuation aerosol inhaler (Dulera) tiotropium bromide 1.25 2 puff inhalation DAILY 10/18/20 10/18/21 mcg/actuation mist for inhalation (Spiriva Respimat) montelukast 10 mg tablet 10 mg PO DAILY PRN Allergy Symptoms 04/15/21 10/18/21 (Singulair) fenofibrate 54 mg tablet 54 mg PO DAILY 04/24/21 10/18/21 dexamethasone 20 mg tablet 40 mg PO WEEKLY 08/22/21 10/18/21 ondansetron HCl 8 mg tablet 8 mg PO Q8H PRN Nausea 08/22/21 10/18/21 acetaminophen 325 mg tablet 650 mg PO Q8H PRN Pain (Scale 10/09/21 10/18/21 Score 1-3) primidone 50 mg tablet 150 mg PO BID 10/09/21 10/18/21 Allergies Allergy/AdvReac Type Severity Reaction Status Date / Time celecoxib Allergy Intermediate TACHYCARDIA Verified 10/18/21 12:06 iohexol Allergy Intermediate Hives/Red Verified 10/18/21 12:06 [From contrast - CT, X-RAY] face ibuprofen Allergy Unknown Other Verified 10/18/21 12:06 iodine Allergy Unknown Other Verified 10/18/21 12:06 midazolam Allergy Unknown AMNESIA Verified 10/18/21 12:06 AFTER SURGERY Penicillins Allergy Unknown Other Verified 10/18/21 12:06 Review of Systems Review of Systems: ROS unobtainable: Yes unobtainable due to mental status PMFSH Past Medical History Medical History Acute neck pain Cervical spondylosis with radiculopathy Chronic anemia Chronic kidney disease, stage 3 Coronary artery disease Degenerative disc disease Dyslipidemia ESRD (end stage renal disease) on dialysis mwf Gastric polyp Gastroesophageal reflux disease Gout History of MRSA infection Hypertension Insulin dependent type 2 diabetes mellitus Lichen sclerosus Macular degeneration Mixed stress and urge urinary incontinence Multiple myeloma Obstructive sleep apnea on CPAP Osteoarthritis Paroxysmal atrial fibrillation Right bundle branch block Surgical History Surgical History History of arthroscopy of left knee History of bilateral knee arthroplasty History of bladder surgery St
[2021-11-15 09:28] LABS: Appearance Urine Clear (Clear); Bilirubin Urine Negative (Negative); Blood Urine Negative (Negative); Color Urine Yellow (Yellow); Glucose Urine UA Negative (Negative); Ketones Urine Negative (Negative); Leukocyte Esterase Ur Negative LEU/UL (Negative); Nitrate Urine Negative (Negative); Protein Urine 2+ mg/dL (Negative); Urobilinogen Urine 0.2 mg/dL (<2.0); pH Urine 8.5 (5.0-9.0)
[2021-11-15 09:31] LABS: Add Urine Microscopic? YES; Bacteria Urine Trace /hpf; Mucus Urine Rare /lpf; RBC Urine 0-2 /hpf (0-2); Renal Epithelial Cells Urine Rare /hpf (None Seen); Squamous Epithelial Cell Urine Occasional /hpf (Few)
[2021-11-15] MEDS: LACTATED RINGERS 1,000 ML 999 ML IV CONT (09:43)
[2021-11-15 09:49] LABS: Immature Platelet Fraction Pct 12.2 % (0.9-11.2); Mean Corpuscular HGB Conc 30.3 g/dl (32-36); Mean Corpuscular Hemoglobin 30.5 pg (26-34); Mean Corpuscular Volume 100.8 fl (80-100); Mean Platelet Volume 11.9 fl (7.4-10.4); Platelet Count Result 57 k/mm3 (150-375); Red Blood Count 1.31 M/mm3 (4.2-5.4); Red Cell Distribution Width 19.8 % (11.5-14.5); White Blood Count 3.4 K/mm3 (4.5-10.0)
[2021-11-15 10:00] LABS: Hematocrit 13.2 % (37.0-47.0)
[2021-11-15 10:02] LABS: Prothrombin Time 107.6 Seconds (11.1-14.7)
[2021-11-15 10:03] LABS: Lactic Acid Reflex 0.9 mmol/L (0.7-2.0); Partial Thromboplastin Time 115.8 SECONDS (22.3-36.8)
[2021-11-15 10:07] LABS: Atypical Lymphocytes Present; Band Neutrophils Percent 1 % (0-6); Lymphocytes Absolute Manual 1.66 K/mm3 (1.1-4.5); Monocytes Absolute Manual 0.17 K/mm3 (0.1-0.90); Monocytes Percent Manual 5 % (3-9); Myelocytes Percent 4 %; Neutrophils Absolute Manual 1.42 K/mm3 (1.7-7.2); Neutrophils Percent Manual 41 % (46-73); Nucleated Red Blood Cells 3 %; Ovalocytes 1+ (NORMAL); Platelet Estimate Decreased (Adequate); Schistocytes None Seen (NORMAL); Tear Drop Cells 1+ (NORMAL); Total Cells Counted 100
[2021-11-15 10:08] LABS: Hypochromasia 1+ (NORMAL)
[2021-11-15 10:09] LABS: INR 15.3
[2021-11-15 10:16] LABS: Alveolar/Arterial O2 Gradient 105.2 mmHg; Base Excess ABG 11.2 mEq/l (+/-2.0); Fractional Inspired Oxygen 36 %; HCO3 ABG 34.9 mEq/l (22.0-26.0); Oxygen Content ABG 5.8 %vol (16.0-22.0); Oxygen Saturation ABG 98.2 % (95.0-100.0); PCO2 ABG 42.5 mmHg (35.0-45.0); PO2 ABG 102.2 mmHg (80.0-100.0); PO2 FiO2 Ratio Arterial Blood 2.84 %
[2021-11-15 10:18] LABS: Device NASAL CANNULA; Site Drawn LEFT BRACHIAL; Total Hemoglobin 4.2 g/dL (12.0-18.0); pH ABG 7.532 (7.350-7.450)
[2021-11-15 11:28] LABS: Alanine Aminotransferase 9 U/L (6-35); Albumin Level 3.1 g/dL (3.5-5.1); Alkaline Phosphatase 75 U/L (38-126); Anion Gap 12 mmol/L (8-16); Aspartate Amino Transferase 18 U/L (14-36); Bilirubin,Total 0.3 mg/dL (0.2-1.3); Blood Urea Nitrogen 22 mg/dL (7-17); CRP 4.6 mg/dL (<1.0); Calcium 8.9 mg/dL (8.4-10.2); Carbon Dioxide 35 mmol/L (22-30); Chloride 88 mmol/L (98-107); Estimated CRCL calculation 15 ml/min; Estimated Glomerular Filt Rate 11; Glucose 120 mg/dL (65-110); Sodium 135 mmol/L (137-145)
[2021-11-15] MEDS: SODIUM CHLORIDE 0.9% IV 250 ML 30 ML IV CONT (11:37)
[2021-11-15] MEDS: TUBING, BLOOD SET 1 EACH XX (11:38)
--- NOTE | 2021-11-15 12:42 | WPDCNINT ---
Assessment and Plan Assessment and plan (1) ESRD (end stage renal disease) on dialysis: Code(s): N18.6 - End stage renal disease; Z99.2 - Dependence on renal dialysis Status: Acute Assessment and Plan: She has a right jugular tunnel catheter for hemodialysis. She goes for dialysis on Friday and her last dialysis yesterday Her electrolytes are acceptable Consult nephrology for hemodialysis (2) Hypoxia: Code(s): R09.02 - Hypoxemia Status: Acute Assessment and Plan: Chest x-ray suggests pulmonary edema CT chest noncontrast is ordered to further evaluate as patient is morbidly obese Most likely pulmonary edema from ESRD Pneumonia is another possibility Check blood cultures, urine pneumococcal and Legionella antigen Currently on empiric antibiotics vancomycin cefepime (3) Multiple myeloma: Code(s): C90.00 - Multiple myeloma not having achieved remission Status: Chronic Assessment and Plan: She is on chemotherapy with Velcade Oncology has been consulted Hold Velcade at this time (4) Chronic anemia: Code(s): D64.9 - Anemia, unspecified Status: Acute Assessment and Plan: Patient has chronic anemia with multiple etiologies the form of multiple myeloma, chronic kidney disease Presented with hemoglobin of 4 She has received 2 units of PRBC and I will recheck hemoglobin. Transfuse more if needed but will be conservative as patient has end-stage renal disease. IV PPI q.12 hours Check stool Hemoccult Consult GI and Hematology DC aspirin Patient was discharged on Eliquis on her last hospitalization from [place] but since then patient has been admitted at outside hospital so I am not sure whether patient is still on Eliquis or not. Patient or her family is unable to confirm whether she is taking Eliquis or not. I have requested records her fdc and [facility] (5) Pancytopenia: Code(s): D61.818 - Other pancytopenia Status: Acute Assessment and Plan: Patient has chronic pancytopenia from her chemotherapy and multiple myeloma Monitor platelet count-transfuse if needed Monitor WBC count (6) Coagulopathy: Code(s): D68.9 - Coagulation defect, unspecified Status: Acute Assessment and Plan: Patient's INR is 15.3 and PTT is 115 Patient was discharged on Eliquis on her last hospitalization from [place] but since then patient has been admitted at outside hospital so I am not sure whether patient is still on Eliquis or not. Patient or her family is unable to confirm whether she is taking Eliquis or not. I have requested records her fdc and [facility] Repeat INR at this time and will treat depending on the results (7) Altered mental status: Code(s): R41.82 - Altered mental status, unspecified Status: Acute Assessment and Plan: On my examination patient has nonfocal exam and is partially oriented. This could be delirium or metabolic encephalopathy Head CT is negative Check ammonia and TSH ABG reviewed Avoid sedatives (8) Sepsis: Code(s): A41.9 - Sepsis, unspecified organism Status: Acute Assessment and Plan: From history it appears the patient had MSSA bacteremia and was discharged on cefazolin. Per patient's niece patient had her dialysis catheter replaced due to sepsis which I suspect was likely from bacteremia. She states the patient also had C diff and was on vancomycin by mouth. Patient at this time denies any diarrhea abdominal pain She also has a rates on chest x-ray which could be pneumonia Her lactic acid level is normal UA is unremarkable Check procalcitonin level Blood cultures have been sent Empiric vancomycin and cefepime to cover for healthcare associated pneumonia Check CT chest to better evaluate lung parenchyma Continue p.o. vancomycin for now I will try to obtain records from [facility] and patient's f[facility]
--- NOTE | 2021-11-15 13:44 | PC.NURSE ---
Update provided to Nursing Facility, request chart to be faxed.
--- NOTE | 2021-11-15 14:02 | PM.IMHP ---
H&P: HPI History of Present Illness Date/Time: 11/15/21 14:02 Chief Complaint: ALTERED MENTAL STATUS Narrative: THIS IS A 71-YEAR-OLD FEMALE PATIENT WHO HAS A HISTORY OF END-STAGE RENAL DISEASE WITH DIALYSIS ON Friday AND FRIDAY. SHE ALSO HAS A HISTORY OF MULTIPLE MYELOMA AND SHE WENT FOR HER CHEMO TODAY AND SHE WAS ACTING ALTERED CONFUSED AND PALE HER NIECE IS AT THE BEDSIDE AND SHE IS GIVING THE INFORMATION. THE PATIENT WAS RECENTLY ADMITTED TO AN OUTSIDE HOSPITAL FOR INFECTED DIALYSIS PORT AND C DIFFICILE. THE PATIENT RESIDES AT [facility]. THE PATIENT WAS ALERT AND ORIENTATED YESTERDAY. PATIENT'S H&H WAS 4.013.2. AND CAME UP TO 6.1 AND 19.3. PATIENT HAD BEEN ORDERED 2 UNITS OF PACKED RED BLOOD CELLS AND RECEIVED THEM. THE INSPECTOR METAL CAN WAS CONSULTED AND HAS ALREADY SEEN THE PATIENT. THE PATIENT'S INR WAS 15.3 AND THEN CAME DOWN TO 10.2. ARTERIAL BLOOD GASES PH 7.532 PO2 WAS 102.2. BICARB 34.9. BUN 22 CREATININE 4.0. GLUCOSE 120. BNP 44952. ACCORDING TO THE NIECE THE PATIENT DOES MAKE SOME URINE. THE PATIENT HAS GENERALIZED EDEMA. GI HAS BEEN CONSULTED, HEMATOLOGY-ONCOLOGY HAS BEEN CONSULTED, INSPECTOR METAL CAN HAS BEEN CONSULTED, NEPHROLOGY HAS BEEN CONSULTED, AND GI HAS BEEN CONSULTED. THE PATIENT WAS STARTED ON CEFEPIME AND VANCOMYCIN. THE PATIENT IS BEING ADMITTED TO ICU THE INPATIENT ADMISSION ON THE DATE OF SERVICE OF 11/15/2021. Review of Systems Review of Systems: THE NIECE IS ANSWERING QUESTIONS AT THE BEDSIDE. All systems reviewed & are unremarkable except as noted in HPI and below Constitutional: Constitutional: Reports as per HPI and Reports no additional constitutional complaints Eyes: Eyes: Reports as per HPI and Reports no additional eye complaints ENT: Reports system reviewed and no additional complaints, except as documented and Reports Normal hearing present Cardiovascular: Cardiovascular: Reports no additional cardiovascular complaints Respiratory: Respiratory: Reports no additional respiratory complaints and Reports no additional respiratory complaints Gastrointestinal: Gastrointestinal: Reports as per HPI and Reports no additional gastrointestinal complaints Musculoskeletal: Musculoskeletal: Reports no additional musculoskeletal complaints Integumentary/Breasts: Skin/Breast: Reports system reviewed and no additional complaints, except as docu and Reports as per HPI Neurologic: Reports system reviewed and no additional complaints, except as documented, Reports as per HPI and Reports Normal hearing present Psychiatric: Psychiatric: Reports no additional psychiatric complaints and Reports as per HPI Endocrine: Endocrine: Reports no additional endocrine complaints Hematologic/Lymphatic: Hematologic/Lymphatic: Reports no additional hematologic/lymphatic complaints Allergic/Immunologic: Allergic/Immunologic: Reports no additional allergic/immunologic complaints [facility] Past Medical History Medical History Acute neck pain Cervical spondylosis with radiculopathy Chronic anemia Chronic kidney disease, stage 3 Coronary artery disease Degenerative disc disease Dyslipidemia ESRD (end stage renal disease) on dialysis mwf Gastric polyp Gastroesophageal reflux disease Gout History of MRSA infection Hypertension Insulin dependent type 2 diabetes mellitus Lichen sclerosus Macular degeneration Mixed stress and urge urinary incontinence Multiple myeloma Obstructive sleep apnea on CPAP Osteoarthritis Paroxysmal atrial fibrillation Right bundle branch block Surgical History Surgical History History of arthroscopy of left knee History of bilateral knee arthroplasty History of bladder surgery Status post sling and InterStim. History of cardiac catheterization History of cataract extraction History of cholecystectomy History of coronary artery stent placement History
[2021-11-15] MEDS: PANTOPRAZOLE SODIUM IV 40 MG VIAL IV PUSH ×2 (14:32→22:54)
--- NOTE | 2021-11-15 15:19 | WPDGICN ---
Assessment and Plan Assessment and plan (1) Pancytopenia: Code(s): D61.818 - Other pancytopenia Status: Acute Assessment and Plan: Patient with rather profound pancytopenia. Suspect this is related to multiple myeloma or treatment. Will follow with you. He month follow-up may be of benefit. (2) Chronic anemia: Code(s): D64.9 - Anemia, unspecified Status: Acute Assessment and Plan: Patient with rather profound chronic anemia likely on the basis of treatment for multiple myeloma. Other possible etiologies for her anemia include chronic kidney disease in addition to her myeloma. She has required frequent transfusions over the last several weeks with no obvious GI bleeding. Stool Hemoccult reported to be positive in the ER will be repeated and followed. Would recommend covering patient for possible stress gastritis. At the present time patient is not a candidate for invasive testing. Will observe and treat conservatively at this time. Patient may have previously been on anticoagulation and if so this should be held. (3) Coagulopathy: Code(s): D68.9 - Coagulation defect, unspecified Status: Acute Assessment and Plan: Patient with rather profound coagulopathy. INR 15. It is uncertain whether she has received anticoagulation if show so the should be held present. Patient may benefit from plasma to correct coagulopathy. Continue to monitor closely. Consider hematology evaluation as stated. (4) Altered mental status: Code(s): R41.82 - Altered mental status, unspecified Status: Acute (5) ESRD (end stage renal disease) on dialysis: Code(s): N18.6 - End stage renal disease; Z99.2 - Dependence on renal dialysis Status: Acute (6) Multiple myeloma: Code(s): C90.00 - Multiple myeloma not having achieved remission Status: Chronic GI Consult Note Consult date/time: 11/15/21 15:19 Reason for consult: profound anemia HPI: Jaimie Nix is a 71 year old female I am asked to see because of profound anemia. Patient has a history of multiple myeloma diagnosed over the last 3 years. She has a history of chronic kidney disease requiring dialysis since July of 2021. She was admitted to [facility] with a dialysis catheter infection in October. During this hospital stay she was found to have C difficile infection rather profound anemia requiring transfusions. She has required several transfusions over the last several months. After returning home she is remains somewhat confusion in because of confusion and altered mental status presented to [facility] ER today. In the ER she was found to be profoundly anemic. In hypoxemic. Patient is now admitted the hospital for further evaluation. Patient denies any obvious GI bleeding. Her diarrhea noted time of C difficile infection appears improved. Review of Systems Review of Systems: Review of systems noncontributory. [facility] Past Medical History Medical History Acute neck pain Cervical spondylosis with radiculopathy Chronic anemia Chronic kidney disease, stage 3 Coronary artery disease Degenerative disc disease Dyslipidemia ESRD (end stage renal disease) on dialysis mwf Gastric polyp Gastroesophageal reflux disease Gout History of MRSA infection Hypertension Insulin dependent type 2 diabetes mellitus Lichen sclerosus Macular degeneration Mixed stress and urge urinary incontinence Multiple myeloma Obstructive sleep apnea on CPAP Osteoarthritis Paroxysmal atrial fibrillation Right bundle branch block Surgical History Surgical History History of arthroscopy of left knee History of bilateral knee arthroplasty History of bladder surgery Status post sling and InterStim. History of cardiac catheterization History of cataract extraction History of chol
--- NOTE | 2021-11-15 15:20 | PC.NURSE ---
This patient, Jaimie Nix, was admitted to Intensive Care Unit-7. Patient/family oriented to hospital policies and general routines including ID bracelet, bed and alarms, visiting hours, pain management, procedures, bathroom and other care routines, personal items, smoking policy, room service/diet, and visiting hours. Information on how to activate the Rapid Response Team has been discussed. Patient/Family are encouraged to report perceived risks to care and to ask questions if they do not understand what they are told or what they should do.
[2021-11-15 16:26] LABS: Hematocrit 19.3 % (37.0-47.0); Hemoglobin 6.1 g/dL (12.0-15.0)
[2021-11-15 16:39] LABS: Ammonia < 9 umol/L (9-30)
[2021-11-15 16:42] LABS: NT Pro B Type Natriuretic Pept 12600 pg/mL (5-100)
[2021-11-15 16:54] LABS: Fibrinogen 363 mg/dl (215-510)
[2021-11-15 16:56] LABS: Partial Thromboplastin Time 95.4 SECONDS (22.3-36.8); Prothrombin Time 78.2 Seconds (11.1-14.7)
[2021-11-15 17:08] LABS: Procalcitonin 3.3 ng/mL
[2021-11-15 17:09] LABS: INR 10.2
--- NOTE | 2021-11-15 17:39 | PDONCCN ---
HPI - Date of Consult Date/Time: 11/15/21 17:39 Requesting Physician: Candelaria Loza MD Primary Care Provider: Cesario Medrano, - Consult Narrative Reason for consult: Light chain multiple myeloma Narrative: Jaimie Nix is a 71 year old female with history of light chain multiple myeloma stated bone marrow biopsy done in February of 2019 along with kidney biopsy that showed light chain cast nephropathy. Patient also has a history of end-stage renal disease on currently on hemodialysis. She was recently discharged from [facility] after being treated for infected dialysis port. She was brought into the office for chemotherapy treatment. She was having mental status changes and was sent to the ER. Her last chemotherapy was on October 18 with Velcade. Labs showed hemoglobin [place] 4[place] [address]. She denies any bleeding. He denies any fevers and chills but have intermittent diarrhea. In complaining of cold and tiredness and fatigue. CT chest abdomen pelvis showed small pericardial effusion, mild pulmonary edema and mildly distended colon. Head CT showed no acute intracranial processes. Review of Systems - Review of Systems All systems reviewed & are unremarkable except as noted in HPI and [facility] Medical History: Medical History (Last Reviewed 11/15/21 @ 17:37 by Gricelda Dalton NP) Acute neck pain Cervical spondylosis with radiculopathy Chronic anemia Chronic kidney disease, stage 3 Coronary artery disease Degenerative disc disease Dyslipidemia ESRD (end stage renal disease) on dialysis mwf Gastric polyp Gastroesophageal reflux disease Gout History of MRSA infection Hypertension Insulin dependent type 2 diabetes mellitus Lichen sclerosus Macular degeneration Mixed stress and urge urinary incontinence Multiple myeloma Obstructive sleep apnea on CPAP Osteoarthritis Paroxysmal atrial fibrillation Right bundle branch block Surgical History: Surgical History (Last Reviewed 11/15/21 @ 17:37 by Gricelda Dalton NP) History of arthroscopy of left knee History of bilateral knee arthroplasty History of bladder surgery Status post sling and InterStim. History of cardiac catheterization History of cataract extraction History of cholecystectomy History of coronary artery stent placement History of spinal surgery x4 Status post bilateral foot surgery Bone spur removal. Family History: Family History (Last Reviewed 11/15/21 @ 17:37 by Gricelda Dalton NP) Mother Hypertension, Onset Age: 86 Family history of elevated blood lipids, Onset Age: 86 Patient's mother is Grandparent Cerebrovascular accident, Onset Age: 76 Diabetes mellitus, Onset Age: 84 Father Family history of coronary artery disease, Onset Age: 49 Patient's father is - Social History Social History: Social History (Last Updated 11/15/21 @ 17:38 by Gricelda Dalton NP) Alcohol Use: Alcohol intake: never Substance Use: Substance use: never Substance use type: does not use Smoking Status: Smoking status: Never smoker Second hand tobacco smoke exposure: No Exam - Vital Signs Vital Signs - 24 hr 11/15/21 08:26 11/15/21 08:39 11/15/21 09:41 Temperature 36.6 C Pulse Rate 106 H 83 107 H Respiratory Rate 18 16 Blood Pressure 153/73 H 162/82 H Pulse Oximetry 100 97 Oxygen Delivery Nasal Cannula Oxygen Flow Rate 2 11/15/21 10:08 11/15/21 10:57 11/15/21 11:36 Temperature 36.9 C Pulse Rate 106 H 104 H 105 H Respiratory Rate 20 17 18 Blood Pressure 156/83 H 158/73 H 148/83 H Pulse Oximetry 100 100 100 Oxygen Delivery Oxygen Flow Rate 11/15/21 11:42 11/15/21 11:51 11/15/21 12:27 Temperature 36.7 C 36.6 C Pulse Rate 105 H 104 H 104 H Respiratory Rate 20 17 20 Blood Pressure 148/83 H 158/69 H 130/89 Pulse Oximetry 100 100 98 Oxygen Delivery Oxygen Flow Rate 11/15/21
[2021-11-15] MEDS: PHYTONADIONE INJ 10 MG/ML AMP IM (18:16)
[2021-11-15] MEDS: PRIMIDONE 125 MG TABLET PO (19:34)
[2021-11-15] MEDS: AMIODARONE HCL 200 MG TABLET PO (19:34)
[2021-11-15] MEDS: VANCOMYCIN ORAL 125 MG/2.5 ML SYRUP PO (19:34)
[2021-11-15] MEDS: amLODIPine BESYLATE 5 MG TABLET 10 MG PO (19:34)
[2021-11-15] MEDS: EPOETIN ALFA-EPBX 20,000 UNITS/ML VIAL 20000 UNITS SUB-Q (19:35)
[2021-11-15 19:41] LABS: Lactate Dehydrogenase 163 U/L (120-246)
[2021-11-15 20:49] LABS: Folic Acid 4.8 ng/mL (2.76->20); Vitamin B12 > 1000.0 pg/mL (239-931)
[2021-11-15 20:54] LABS: IFOB Positive Control Positive; Immunochemical Fecal Occult Bl Negative (N)
[2021-11-15] MEDS: METOPROLOL SUCCINATE EXT REL 100 MG TABCR PO (21:42)
[2021-11-15] MEDS: hydrALAZINE HCL 50 MG TABLET 100 MG PO (21:43)
[2021-11-15] MEDS: CEFEPIME 0.5 GM in DEXTROSE 5% IN WATER 50 ML IVPB (22:54)
[2021-11-15] MEDS: FUROSEMIDE INJ 100 MG/10 ML VIAL 80 MG IV PUSH (23:30)
[2021-11-15 23:43] LABS: Glucose Point of Care 146 mg/dl (65-105)
[2021-11-15] MEDS: hydrALAZINE HCL 20 MG/ML VIAL 10 MG IV PUSH (23:48)
[2021-11-16] VITALS (49 sets, daily range): BP systolic 124–225; BP diastolic 60–158; PULSE 15–119; RESP 11–126; TEMP 36–36.9; O2SAT 95–100
[2021-11-16 00:41] LABS: Hematocrit 22.7 % (37.0-47.0); Hemoglobin 7.8 g/dL (12.0-15.0)
[2021-11-16] MEDS: hydrALAZINE HCL 50 MG TABLET 100 MG PO ×3 (03:37→21:31)
[2021-11-16 05:59] LABS: Glucose Point of Care 134 mg/dl (65-105)
[2021-11-16 07:07] LABS: Immature Platelet Fraction Pct 12.3 % (0.9-11.2); Mean Corpuscular HGB Conc 33.3 g/dl (32-36); Mean Platelet Volume 12.1 fl (7.4-10.4); Platelet Count Result 31 k/mm3 (150-375); Red Cell Distribution Width 16.4 % (11.5-14.5); White Blood Count 2.7 K/mm3 (4.5-10.0)
[2021-11-16 07:22] LABS: INR 1.7
[2021-11-16 07:37] LABS: Alanine Aminotransferase 7 U/L (6-35); Albumin Level 2.9 g/dL (3.5-5.1); Alkaline Phosphatase 62 U/L (38-126); Anion Gap 9 mmol/L (8-16); Aspartate Amino Transferase 21 U/L (14-36); Bilirubin,Total 0.5 mg/dL (0.2-1.3); Blood Urea Nitrogen 33 mg/dL (7-17); Calcium 8.4 mg/dL (8.4-10.2); Carbon Dioxide 34 mmol/L (22-30); Chloride 88 mmol/L (98-107); Estimated CRCL calculation 13 ml/min; Estimated Glomerular Filt Rate 9; Glucose 113 mg/dL (65-110); Magnesium 1.9 mg/dL (1.6-2.3); Potassium 3.8 mmol/L (3.4-5.0); Sodium 131 mmol/L (137-145)
[2021-11-16 08:05] LABS: Hemoglobin 6.9 g/dL (12.0-15.0)
[2021-11-16 08:06] LABS: Hematocrit 20.7 % (37.0-47.0)
[2021-11-16 08:07] LABS: Hepatitis B Surface Antigen Negative (Negative)
[2021-11-16 08:22] LABS: Band Neutrophils Percent 3 % (0-6); Eosinophils Absolute Manual 0.02 K/mm3 (0.02-0.5); Eosinophils Percent Manual 1 % (0-4); Lymphocytes Absolute Manual 0.67 K/mm3 (1.1-4.5); Monocytes Percent Manual 4 % (3-9); Neutrophils Absolute Manual 1.89 K/mm3 (1.7-7.2); Neutrophils Percent Manual 67 % (46-73); Nucleated Red Blood Cells 2 %; Total Cells Counted 100
[2021-11-16 08:23] LABS: Anisocytosis 1+ (NORMAL); Microcytosis 1+ (NORMAL); Platelet Estimate Decreased (Adequate)
[2021-11-16 08:25] LABS: Hepatitis B Surface Anti Res Negative
[2021-11-16 08:30] LABS: Schistocytes None Seen (NORMAL)
[2021-11-16] MEDS: VANCOMYCIN ORAL 125 MG/2.5 ML SYRUP PO ×3 (09:20→16:38)
--- NOTE | 2021-11-16 09:31 | WPDINTPN ---
Progress Note: A&P Assessment and Plan (1) ESRD (end stage renal disease) on dialysis: Code(s): N18.6 - End stage renal disease; Z99.2 - Dependence on renal dialysis Status: Acute Assessment and Plan: She has a right jugular tunnel catheter for hemodialysis. She goes for dialysis on Friday and her last dialysis yesterday Her electrolytes are acceptable Consult nephrology for hemodialysis and patient will be dialyzed today (2) Hypoxia: Code(s): R09.02 - Hypoxemia Status: Acute Assessment and Plan: Chest x-ray suggests pulmonary edema CT chest noncontrast was done and confirmed the patient had mild pulmonary edema and does not appear to have a pneumonia Most likely pulmonary edema from ESRD On presentation Pneumonia was suspected and blood cultures, urine pneumococcal and Legionella antigen % Currently on empiric antibiotics vancomycin cefepime which will be continued for another 24 hours until blood cultures are back (3) Multiple myeloma: Code(s): C90.00 - Multiple myeloma not having achieved remission Status: Chronic Assessment and Plan: She is on chemotherapy with Velcade Oncology has been consulted Hold Velcade at this time (4) Chronic anemia: Code(s): D64.9 - Anemia, unspecified Status: Acute Assessment and Plan: Patient has chronic anemia with multiple etiologies the form of multiple myeloma, chronic kidney disease Presented with hemoglobin of 4 She has received 3 units of PRBC and her hemoglobin this morning 6.9. Will transfuse 1 more unit with hemodialysis Her Hemoccult was negative IV PPI q.12 hours GI and Hematology for consult Continue to hold aspirin Patient was discharged on Eliquis on her last hospitalization from [place] but since then patient has been admitted at outside hospital where it appears there was discontinue as I do not see her on snf medication list. The possibility of vaginal bleeding. Consult match maker for evaluation (5) Pancytopenia: Code(s): D61.818 - Other pancytopenia Status: Acute Assessment and Plan: Patient has chronic pancytopenia from her chemotherapy and multiple myeloma Monitor platelet count-transfuse 2 units of platelets with dialysis in light of simple bleeding Monitor WBC count (6) Coagulopathy: Code(s): D68.9 - Coagulation defect, unspecified Status: Acute Assessment and Plan: Patient's INR is 15.3 and PTT is 115 Patient was discharged on Eliquis on her last hospitalization from [place] but since then patient has been admitted at outside hospital and appears that Eliquis was discontinued as I do not see on snf medication list. She was given 2 units of FFP which has brought her INR acceptable range. She was also given 10 mg of vitamin K. Continue to monitor (7) Altered mental status: Code(s): R41.82 - Altered mental status, unspecified Status: Acute Assessment and Plan: On my examination patient has nonfocal exam and is partially oriented. This was likely delirium or metabolic encephalopathy Head CT is negative Normal ammonia Elevated TSH of 6.9. Check free T3 and free T4 ABG reviewed Patient is much more awake and oriented today. Continue to avoid sedatives (8) Sepsis: Code(s): A41.9 - Sepsis, unspecified organism Status: Acute Assessment and Plan: From history it appears the patient had MSSA bacteremia and was discharged on cefazolin. Per patient's niece, at ,patient had her dialysis catheter replaced due to sepsis which I suspect was likely from bacteremia. She states the patient also had C diff and was on vancomycin by mouth. Patient at this time denies any diarrhea or abdominal pain but her CT scan suggested liquid stool in her colon CT scan of the chest does not suggest pneumonia Her lactic acid level is normal UA is unremarkable procalcitonin level slightly elevated Blood c
--- NOTE | 2021-11-16 10:31 | WPDGIPROGNO ---
Progress Note: A&P Assessment and Plan (1) Anemia: Code(s): D64.9 - Anemia, unspecified Status: Chronic Assessment and Plan: Patient with anemia. [place] to be multifactorial. Likely some anemia related to chronic kidney disease. Now with treatment for multiple myeloma. No significant GI bleeding identified. Will continue to monitor hemoglobin. Perhaps cover for possible stress gastritis. No invasive testing advised present. (2) Multiple myeloma: Code(s): C90.00 - Multiple myeloma not having achieved remission Status: Chronic Assessment and Plan: Oncology to follow up because of multiple myeloma ongoing. (3) Altered mental status: Code(s): R41.82 - Altered mental status, unspecified Status: Acute Assessment and Plan: Patient alert stable this morning. (4) ESRD (end stage renal disease) on dialysis: Code(s): N18.6 - End stage renal disease; Z99.2 - Dependence on renal dialysis Status: Acute (5) Hypoxia: Code(s): R09.02 - Hypoxemia Status: Acute Assessment and Plan: Patient hypoxic on presentation. Appears to have developed a pneumonia. Currently in the ICU under their management. (6) Coagulopathy: Code(s): D68.9 - Coagulation defect, unspecified Status: Acute Assessment and Plan: Marked coagulopathy identified at time of presentation. This is improved with plasma infusion. Likely related to previous Eliquis Treatment. treatment. Subjective Date/time seen: 11/16/21 10:31 Patient more alert today. More color in her cheeks. No significant blood loss identified. Bowel habits have been normal. Feels better after transfusion yesterday. Review of Systems Review of Systems: Review of systems noncontributory. Exam Narrative: Physical exam reveals her to be more alert. Remains in the ICU. Vital signs stable lungs are clear. Heart without murmur. Abdomen is obese. Bowel sounds present soft nontender with no organomegaly. Objective Data Vital Signs Vital Signs: Vital Signs - 24 hr 11/15/21 10:57 11/15/21 11:36 11/15/21 11:42 Temperature 98.4 F Pulse Rate 104 H 105 H 105 H Respiratory Rate 17 18 20 Blood Pressure 158/73 H 148/83 H 148/83 H Pulse Oximetry 100 100 100 Oxygen Delivery 11/15/21 11:51 11/15/21 12:27 11/15/21 14:28 Temperature 98.0 F 97.8 F 98.6 F Pulse Rate 104 H 104 H 105 H Respiratory Rate 17 20 12 Blood Pressure 158/69 H 130/89 146/89 H Pulse Oximetry 100 98 100 Oxygen Delivery 11/15/21 14:43 11/15/21 15:47 11/15/21 16:00 Temperature 98 F 98.7 F 98.5 F Pulse Rate 106 H 105 H 105 H Respiratory Rate 11 L 16 20 Blood Pressure 151/77 H 154/106 H 161/80 H Pulse Oximetry 96 100 100 Oxygen Delivery 11/15/21 16:00 11/15/21 18:00 11/15/21 18:00 Temperature Pulse Rate 106 H 106 H 106 H Respiratory Rate 18 Blood Pressure 185/93 H Pulse Oximetry 96 Oxygen Delivery 11/15/21 19:34 11/15/21 20:08 11/15/21 20:27 Temperature 98.5 F 98.2 F Pulse Rate 110 H 110 H 115 H Respiratory Rate 14 14 Blood Pressure 172/77 H 169/81 H Pulse Oximetry 95 98 Oxygen Delivery 11/15/21 21:27 11/15/21 21:42 11/15/21 22:27 Temperature 98.2 F 98.2 F Pulse Rate 110 H 113 H 109 H Respiratory Rate 16 18 Blood Pressure 117/82 162/83 H Pulse Oximetry 96 97 Oxygen Delivery 11/15/21 20:00 11/15/21 22:52 11/15/21 23:16 Temperature 98.2 F 98.2 F Pulse Rate 108 H 112 H Respiratory Rate 17 16 Blood Pressure 175/86 H 167/96 H Pulse Oximetry 94 96 Oxygen Delivery Room Air 11/15/21 23:33 11/16/21 00:33 11/15/21 20:00 Temperature 97.8 F 97.5 F L Pulse Rate 112 H 105 H 110 H Respiratory Rate 20 15 Blood Pressure 175/80 H 146/60 H Pulse Oximetry 97 98 Oxygen Delivery 11/15/21 22:00 11/16/21 00:00 11/16/21 00:00 Temperature Pulse Rate 109 H 106 H Respiratory Rate Blood Pressure
[2021-11-16] MEDS: amLODIPine BESYLATE 5 MG TABLET 10 MG PO (12:43)
[2021-11-16] MEDS: PRIMIDONE 125 MG TABLET PO ×2 (12:43→16:40)
[2021-11-16] MEDS: ISOSORBIDE MONONITRATE 60 MG TAB.ER.24H PO (12:43)
[2021-11-16] MEDS: AMIODARONE HCL 200 MG TABLET PO (12:43)
[2021-11-16] MEDS: METOPROLOL SUCCINATE EXT REL 100 MG TABCR PO ×2 (12:43→21:30)
--- NOTE | 2021-11-16 13:05 | PM.GYNPNOP ---
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 No uterus. Suspect spotting due to atrophic tissues with manipulation and low platelets. If stabilizes and wants to follow up for full exam in office, I would be happy to see patient. The patient and her sister were informed of this option. Do not suspect significant pathology of vagina as manual exam is normal. Time Spent With Patient Time: Total time spent is greater than 50% in coordination of care (as documented) at patient's floor/unit and/or counseling patient: Time with patient: less than 15 minutes PLANT BREEDER SCIENTIST- PN:Subj Post-Op Subjective Date/time seen: 11/16/21 13:05 Interval history: I was asked to evaluate patient due to vaginal bleeding noted by RN. Per RN has seen minimal spotting while cleaning up patient each time. No blood flowing. No clots. Patient awake and alert and her sister present. Per patient she has not seen blood before. She had a hysterectomy in for fibroid uterus. Notes history of lichen sclerosis. No other significant gynecologic history. Chart and history reviewed. Exam Const: General: alert (able to answer questions) and awake Orientation/consciousness: oriented to person and oriented to place Limitations: altered mental status (per sister still a little confused) GI: GI Palp: No abdominal tenderness : External Female Exam: other (atrophic without visible lesions (limited by being in bed)) Speculum Exam - Vagina: normal palpation (smooth without lesions), vagina atrophic and other (trace blood on glove) Speculum Exam - Cervix: Cervix absent Bimanual exam- vagina & uterus: uterus absent Bimanual Exam- Adnexa, other: no tenderness PLANT BREEDER SCIENTIST - PN: Obj Data Vital Signs Vital Signs: Vital Signs - 24 hr 11/15/21 14:28 11/15/21 14:43 11/15/21 15:47 Temperature 98.6 F 98 F 98.7 F Pulse Rate 105 H 106 H 105 H Respiratory Rate 12 11 L 16 Blood Pressure 146/89 H 151/77 H 154/106 H Pulse Oximetry 100 96 100 Oxygen Delivery 11/15/21 16:00 11/15/21 16:00 11/15/21 18:00 Temperature 98.5 F Pulse Rate 105 H 106 H 106 H Respiratory Rate 20 Blood Pressure 161/80 H Pulse Oximetry 100 Oxygen Delivery 11/15/21 18:00 11/15/21 19:34 11/15/21 20:08 Temperature 98.5 F Pulse Rate 106 H 110 H 110 H Respiratory Rate 18 14 Blood Pressure 185/93 H 172/77 H Pulse Oximetry 96 95 Oxygen Delivery 11/15/21 20:27 11/15/21 21:27 11/15/21 21:42 Temperature 98.2 F 98.2 F Pulse Rate 115 H 110 H 113 H Respiratory Rate 14 16 Blood Pressure 169/81 H 117/82 Pulse Oximetry 98 96 Oxygen Delivery 11/15/21 22:27 11/15/21 20:00 11/15/21 22:52 Temperature 98.2 F 98.2 F Pulse Rate 109 H 108 H Respiratory Rate 18 17 Blood Pressure 162/83 H 175/86 H Pulse Oximetry 97 94 Oxygen Delivery Room Air 11/15/21 23:16 11/15/21 23:33 11/16/21 00:33 Temperature 98.2 F 97.8 F 97.5 F L Pulse Rate 112 H 112 H 105 H Respiratory Rate 16 20 15 Blood Pressure 167/96 H 175/80 H 146/60 H Pulse Oximetry 96 97 98 Oxygen Delivery 11/15/21 20:00 11/15/21 22:00 11/16/21 00:00 Temperature Pulse Rate 110 H 109 H 106 H Respiratory Rate Blood Pressure Pulse Oximetry Oxygen Delivery 11/16/21 00:00 11/16/21 01:05 11/16/21 01:31 Temperature 97 F L Pulse Rate 112 H 104 H Respiratory Rate 12 15 Blood Pressure 124/65 Pulse Oximetry 99 98 Oxygen Delivery Room Air CPAP 11/16/21 02:08 11/16/21 02:11 11/16/21 02:00 Temperature 97 F L 97 F L Pulse Rate 102 H 102 H 104 H Respiratory Rate 20 20 Blood Pressure 163/90 H 163/90 H Pulse Oximetry 97 97 Oxygen Delivery 11/16/21 02:27 11/16/21 02:27 11/16/21 03:27 Temperature 97.2 F L 97.2 F L 97.5 F L Pulse Rate 104 H 104 H 103 H Respiratory Rate 12 12 14 Blood Pressure 169/87 H 169/87 H 153/75 H Pulse
--- NOTE | 2021-11-16 13:17 | PM.CNNEP ---
Assessment and Plan Assessment and plan (1) End stage renal disease: Code(s): N18.6 - End stage renal disease Status: Chronic Assessment and Plan: HD today continue M/W/F schedule for now follow electrolytes, volume status, and clearance push fluid removal as tolerated given #2, CT chest findings, and need for mutiple blood product transfusions (2) Hypoxia: Code(s): R09.02 - Hypoxemia Status: Acute Assessment and Plan: admission CXR suggestive of pulmonary edema CT chest confirms this questionable pneumonia(?) follow blood cultures on antibioitics aggressive ultrafiltration/fluid removal with HD as tolerated by hemodynamics follow oxygenation and respiratory status (3) Chronic anemia: Code(s): D64.9 - Anemia, unspecified Status: Acute Assessment and Plan: quit severe on presentation presumably secondary to multiple myeloma, ESRD, and questionable GI loss complicated by coagulopathy as well PRBC transfusion per protocol GI and Hematology following follow trend of H/H (4) Pancytopenia: Code(s): D61.818 - Other pancytopenia Status: Acute Assessment and Plan: likely due to chemotherapy and multiple myeloma PRBC/platelet/FFP transfusion PRN follow trend of CBC (5) Multiple myeloma: Code(s): C90.00 - Multiple myeloma not having achieved remission Status: Chronic Assessment and Plan: on treatment with chemotherapy as an outpatient Oncology following chemotherapy on hold currently (6) Coagulopathy: Code(s): D68.9 - Coagulation defect, unspecified Status: Acute Assessment and Plan: profoundly elevated on admission follow trend of INR (7) Altered mental status: Code(s): R41.82 - Altered mental status, unspecified Status: Acute Assessment and Plan: cllinically better since admission head CT negative ammonia + TSH okay follow mentation (8) Insulin dependent type 2 diabetes mellitus: Code(s): E11.9 - Type 2 diabetes mellitus without complications; Z79.4 - halfway (current) use of insulin Status: Chronic Assessment and Plan: follow accuchecks glycemic control Will continue to follow. History of Present Illness Reason for Consult Consult date: 11/16/21 Reason for consult: end stage renal disease Chief Complaint Chief complaint: AMS, unknown LKW History of Present Illness Narrative: The patient is a 71 year old female with past medical history as outlined below who presented to [facility] ER the infusion center due to confusion and altered mental status.? Most of the information I have obtained is from review of the electronic medical record and discussion with the physicians/nurses involved in her care as the patient is still somewhat confused and unable to provide a complete history of events that led to her presentation. The patient presented to the infusion Center yesterday for her scheduled chemotherapy. However the staff noted the patient was acutely confused and altered with regard to her normal baseline mental status. Furthermore, she appeared to be more pale than usual which was somewhat concerning. This is further complicated by the fact that the patient was just recently discharged from [facility] in [facility] after apparently being hospitalized for sepsis / bacteremia thought to be secondary to her tunneled dialysis catheter. This was subsequently removed and she had a new tunneled dialysis catheter placed and was apparently continued on antibiotic therapy for this issue/ problem. Further specific details with regard to this hospitalization are unknown to me at this time. Workup and evaluation emergency room demonstrated the patient to be hypoxic but improved with addition of supplemental oxygen in the form of 2 L by nasal cannula. CT scan of the head demonstrated donor processor
--- NOTE | 2021-11-16 13:17 | P.CONNP_ITS ---
Assessment and Plan Assessment and plan (1) End stage renal disease: Code(s): N18.6 - End stage renal disease Status: Chronic Assessment and Plan: * HD today * continue M/W/F schedule for now * follow electrolytes, volume status, and clearance * push fluid removal as tolerated given #2, CT chest findings, and need for mutiple blood product transfusions (2) Hypoxia: Code(s): R09.02 - Hypoxemia Status: Acute Assessment and Plan: * admission CXR suggestive of pulmonary edema * CT chest confirms this * questionable pneumonia(?) * follow blood cultures * on antibioitics * aggressive ultrafiltration/fluid removal with HD as tolerated by hemodynamics * follow oxygenation and respiratory status (3) Chronic anemia: Code(s): D64.9 - Anemia, unspecified Status: Acute Assessment and Plan: * quit severe on presentation * presumably secondary to multiple myeloma, ESRD, and questionable GI loss * complicated by coagulopathy as well * PRBC transfusion per protocol * GI and Hematology following * follow trend of H/H (4) Pancytopenia: Code(s): D61.818 - Other pancytopenia Status: Acute Assessment and Plan: * likely due to chemotherapy and multiple myeloma * PRBC/platelet/FFP transfusion PRN * follow trend of CBC (5) Multiple myeloma: Code(s): C90.00 - Multiple myeloma not having achieved remission Status: Chronic Assessment and Plan: * on treatment with chemotherapy as an outpatient * Oncology following * chemotherapy on hold currently (6) Coagulopathy: Code(s): D68.9 - Coagulation defect, unspecified Status: Acute Assessment and Plan: * profoundly elevated on admission * follow trend of INR (7) Altered mental status: Code(s): R41.82 - Altered mental status, unspecified Status: Acute Assessment and Plan: * cllinically better since admission * head CT negative * ammonia + TSH okay * follow mentation (8) Insulin dependent type 2 diabetes mellitus: Code(s): E11.9 - Type 2 diabetes mellitus without complications; 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 History of Present Illness Reason for Consult Consult date: 11/16/21 Reason for consult: end stage renal disease Chief Complaint Chief complaint: AMS, unknown LKW History of Present Illness Narrative: The patient is a 71 year old female with past medical history as outlined below who presented to [facility] ER the infusion center due to confusion and altered mental status.? Most of the information I have obtained is from review of the electronic medical record and discussion with the physicians/nurses involved in her care as the patient is still somewhat confused and unable to provide a complete history of events that led to her presentation. The patient presented to the infusion Center yesterday for her scheduled chemotherapy. However the staff noted the patient was acutely confused and altered with regard to her normal baseline mental status. Furthermore, she appeared to be more pale than usual which was somewhat concerning. This is further complicated by the fact that the patient was just recently discharged from [facility] in [facility] after apparently being hospitalized for sepsis / bacteremia thought to be secondary to her tunneled di
[2021-11-16] MEDS: PANTOPRAZOLE SODIUM IV 40 MG VIAL IV PUSH ×2 (14:13→21:30)
[2021-11-16] MEDS: LABETALOL HCL INJ 100 MG/20 ML VIAL 20 MG IV PUSH ×2 (14:14→16:33)
--- NOTE | 2021-11-16 14:17 | PM.IMPN ---
Progress Note: A&P Assessment and Plan (1) ESRD (end stage renal disease) on dialysis: Code(s): N18.6 - End stage renal disease; Z99.2 - Dependence on renal dialysis Status: Acute Assessment and Plan: She has a right jugular tunnel catheter for hemodialysis. She goes for dialysis on Friday and her last dialysis yesterday Her electrolytes are acceptable Consult nephrology for hemodialysis and patient will be dialyzed today (2) Hypoxia: Code(s): R09.02 - Hypoxemia Status: Acute Assessment and Plan: Chest x-ray suggests pulmonary edema CT chest noncontrast was done and confirmed the patient had mild pulmonary edema and does not appear to have a pneumonia Most likely pulmonary edema from ESRD On presentation Pneumonia was suspected and blood cultures, urine pneumococcal and Legionella antigen % Currently on empiric antibiotics vancomycin cefepime which will be continued for another 24 hours until blood cultures are back (3) Multiple myeloma: Code(s): C90.00 - Multiple myeloma not having achieved remission Status: Chronic Assessment and Plan: She is on chemotherapy with Velcade Oncology has been consulted Hold Velcade at this time (4) Chronic anemia: Code(s): D64.9 - Anemia, unspecified Status: Acute Assessment and Plan: Patient has chronic anemia with multiple etiologies the form of multiple myeloma, chronic kidney disease Presented with hemoglobin of 4 She has received 3 units of PRBC and her hemoglobin this morning 6.9. Will transfuse 1 more unit with hemodialysis Her Hemoccult was negative IV PPI q.12 hours GI and Hematology for consult Continue to hold aspirin Patient was discharged on Eliquis on her last hospitalization from [facility] but since then patient has been admitted at outside hospital where it appears there was discontinue as I do not see her on [facility] medication list. The possibility of vaginal bleeding. Consult yarn conditioner for evaluation (5) Pancytopenia: Code(s): D61.818 - Other pancytopenia Status: Acute Assessment and Plan: Patient has chronic pancytopenia from her chemotherapy and multiple myeloma Monitor platelet count-transfuse 2 units of platelets with dialysis in light of simple bleeding Monitor WBC count (6) Coagulopathy: Code(s): D68.9 - Coagulation defect, unspecified Status: Acute Assessment and Plan: Patient's INR is 15.3 and PTT is 115 Patient was discharged on Eliquis on her last hospitalization from [facility] but since then patient has been admitted at outside hospital and appears that Eliquis was discontinued as I do not see on prison medication list. She was given 2 units of FFP which has brought her INR acceptable range. She was also given 10 mg of vitamin K. Continue to monitor (7) Altered mental status: Code(s): R41.82 - Altered mental status, unspecified Status: Acute Assessment and Plan: On my examination patient has nonfocal exam and is partially oriented. This was likely delirium or metabolic encephalopathy Head CT is negative Normal ammonia Elevated TSH of 6.9. Check free T3 and free T4 ABG reviewed Patient is much more awake and oriented today. Continue to avoid sedatives (8) Sepsis: Code(s): A41.9 - Sepsis, unspecified organism Status: Acute Assessment and Plan: From history it appears the patient had MSSA bacteremia and was discharged on cefazolin. Per patient's niece, at [facility],patient had her dialysis catheter replaced due to sepsis which I suspect was likely from bacteremia. She states the patient also had C diff and was on vancomycin by mouth. Patient at this time denies any diarrhea or abdominal pain but her CT scan suggested liquid stool in her colon CT scan of the chest does not suggest pneumonia Her lactic acid level is normal UA is unremarkable procalcitonin level slightly elevated Blood c
[2021-11-16] MEDS: INSULIN ASPART (*BKC) 100 UNITS/ML SUB-Q ×2 (16:38→21:41)
[2021-11-16 17:43] LABS: Glucose Point of Care 252 mg/dl (65-105)
[2021-11-16 18:49] LABS: Immature Platelet Fraction Pct 3.6 % (0.9-11.2); Mean Corpuscular HGB Conc 33.3 g/dl (32-36); Mean Corpuscular Hemoglobin 30.5 pg (26-34); Mean Corpuscular Volume 91.6 fl (80-100); Mean Platelet Volume 10.1 fl (7.4-10.4); Platelet Count Result 105 k/mm3 (150-375); Red Blood Count 2.26 M/mm3 (4.2-5.4); White Blood Count 2.9 K/mm3 (4.5-10.0)
[2021-11-16 19:07] LABS: Hemoglobin 6.9 g/dL (12.0-15.0)
[2021-11-16 19:08] LABS: Hematocrit 20.7 % (37.0-47.0)
[2021-11-16 19:14] LABS: Vancomycin Random 13.6 ug/mL (10-20)
[2021-11-16] MEDS: CEFEPIME 0.5 GM in DEXTROSE 5% IN WATER 50 ML IVPB (21:31)
[2021-11-16 21:49] LABS: Glucose Point of Care 218 mg/dl (65-105)
[2021-11-17] VITALS (40 sets, daily range): BP systolic 94–191; BP diastolic 62–107; PULSE 77–112; RESP 10–387; TEMP 35.8–36.9; O2SAT 94–100
[2021-11-17] MEDS: SODIUM CHLORIDE 0.9% IV 250 ML 30 ML IV CONT (00:33)
[2021-11-17 06:37] LABS: Hematocrit 25.4 % (37.0-47.0); Hemoglobin 8.4 g/dL (12.0-15.0); Immature Platelet Fraction Pct 4.4 % (0.9-11.2); Mean Corpuscular HGB Conc 33.1 g/dl (32-36); Mean Corpuscular Hemoglobin 30.5 pg (26-34); Mean Corpuscular Volume 92.4 fl (80-100); Mean Platelet Volume 9.6 fl (7.4-10.4); Platelet Count Result 91 k/mm3 (150-375); Red Blood Count 2.75 M/mm3 (4.2-5.4); Red Cell Distribution Width 15.9 % (11.5-14.5); White Blood Count 2.9 K/mm3 (4.5-10.0)
[2021-11-17 06:46] LABS: Alanine Aminotransferase 7 U/L (6-35); Albumin Level 3.2 g/dL (3.5-5.1); Alkaline Phosphatase 80 U/L (38-126); Anion Gap 9 mmol/L (8-16); Aspartate Amino Transferase 19 U/L (14-36); Bilirubin,Total 0.4 mg/dL (0.2-1.3); Blood Urea Nitrogen 23 mg/dL (7-17); Calcium 8.6 mg/dL (8.4-10.2); Carbon Dioxide 28 mmol/L (22-30); Chloride 94 mmol/L (98-107); Estimated CRCL calculation 15 ml/min; Estimated Glomerular Filt Rate 11; Glucose 131 mg/dL (65-110); Magnesium 1.8 mg/dL (1.6-2.3); Potassium 3.4 mmol/L (3.4-5.0); Sodium 131 mmol/L (137-145)
[2021-11-17 06:51] LABS: INR 1.2; Prothrombin Time 15.1 Seconds (11.1-14.7)
[2021-11-17] MEDS: hydrALAZINE HCL 50 MG TABLET 100 MG PO ×3 (07:50→20:24)
[2021-11-17] MEDS: AMIODARONE HCL 200 MG TABLET PO (08:12)
[2021-11-17] MEDS: PANTOPRAZOLE SODIUM IV 40 MG VIAL IV PUSH ×2 (08:13→20:23)
[2021-11-17] MEDS: amLODIPine BESYLATE 5 MG TABLET 10 MG PO (08:13)
[2021-11-17] MEDS: ISOSORBIDE MONONITRATE 60 MG TAB.ER.24H PO (08:14)
[2021-11-17] MEDS: METOPROLOL SUCCINATE EXT REL 100 MG TABCR PO ×2 (08:14→20:23)
[2021-11-17] MEDS: PRIMIDONE 125 MG TABLET PO ×2 (08:15→17:58)
--- NOTE | 2021-11-17 08:15 | WPDINTPN ---
Progress Note: A&P Assessment and Plan (1) ESRD (end stage renal disease) on dialysis: Code(s): N18.6 - End stage renal disease; Z99.2 - Dependence on renal dialysis Status: Acute Assessment and Plan: She has a right jugular tunnel catheter for hemodialysis. She she normally goes for dialysis on Friday She was dialyzed yesterday 3.74 L fluid was removed Her electrolytes are acceptable Nephrology is following. (2) Hypoxia: Code(s): R09.02 - Hypoxemia Status: Acute Assessment and Plan: CT chest noncontrast was done and confirmed the patient had mild pulmonary edema and does not appear to have a pneumonia Most likely pulmonary edema from ESRD On presentation Pneumonia was suspected and blood cultures, urine pneumococcal and Legionella antigen were sent Currently on empiric antibiotics vancomycin cefepime Her hypoxia has improved and she is now on room air. CT scan did not suggest any pneumonia I will deescalate antibiotics (3) Multiple myeloma: Code(s): C90.00 - Multiple myeloma not having achieved remission Status: Chronic Assessment and Plan: She is on chemotherapy with Velcade Oncology has been consulted and she may need repeat bone marrow biopsy to discharge Hold Velcade at this time (4) Chronic anemia: Code(s): D64.9 - Anemia, unspecified Status: Acute Assessment and Plan: Patient has chronic anemia with multiple etiologies the form of multiple myeloma, chronic kidney disease Presented with hemoglobin of 4 She has received 4 units of PRBC Her Hemoccult was negative. Patient evaluated by GI. No plan for intervention at this time. Continue IV PPI q.12 hours Patient was also seen by Hematology and they recommend repeat bone marrow biopsy. Patient is on Procrit with dialysis Nursing staff also reported patient had some spotting suggestive of vaginal bleeding. Patient is not having. Was evaluated by vamp stitcher and this suspect that she has some spotting from her atrophic tissue due to low platelets. No further recommendations at this time Continue to hold aspirin Patient was discharged on Eliquis on her last hospitalization from [facility] but since then patient has been admitted at outside hospital where it appears there was discontinue as I do not see her on senior living medication list. (5) Pancytopenia: Code(s): D61.818 - Other pancytopenia Status: Acute Assessment and Plan: Patient has chronic pancytopenia from her chemotherapy and multiple myeloma Monitor platelet count-patient received 2 units of platelets 11/16 Monitor WBC count (6) Coagulopathy: Code(s): D68.9 - Coagulation defect, unspecified Status: Acute Assessment and Plan: Patient's INR is 15.3 and PTT is 115 Patient was discharged on Eliquis on her last hospitalization from [facility] but since then patient has been admitted at outside hospital and appears that Eliquis was discontinued as I do not see on senior living medication list. She was given 2 units of FFP which has brought her INR acceptable range. She was also given 10 mg of vitamin K. INR today is 1.2. Continue to monitor (7) Altered mental status: Code(s): R41.82 - Altered mental status, unspecified Status: Acute Assessment and Plan: On my examination patient has nonfocal exam and is partially oriented. This was likely delirium or metabolic encephalopathy Head CT is negative Normal ammonia Elevated TSH of 6.9. Check free T3 and free T4 ABG reviewed Patient is much more awake and and fully oriented today. Continue to avoid sedatives (8) Sepsis: Code(s): A41.9 - Sepsis, unspecified organism Status: Acute Assessment and Plan: I reviewed the chart from [facility] and appears the patient had dialysis catheter related MSSA bacteremia and sepsis. She was discharged on cefazolin. Per patient's niece, at [facility],patient had
[2021-11-17 08:20] LABS: Anisocytosis 2+ (NORMAL); Band Neutrophils Percent 19 % (0-6); Basophils Absolute Manual 0.08 K/mm3 (0.0-0.1); Basophils Percent Manual 3 % (0-1); Eosinophils Absolute Manual 0.14 K/mm3 (0.02-0.5); Eosinophils Percent Manual 5 % (0-4); Lymphocytes Absolute Manual 0.52 K/mm3 (1.1-4.5); Macrocytosis 1+ (NORMAL); Metamyelocytes Percent 7 %; Microcytosis 2+ (NORMAL); Monocytes Absolute Manual 0.11 K/mm3 (0.1-0.90); Monocytes Percent Manual 4 % (3-9); Neutrophils Absolute Manual 1.82 K/mm3 (1.7-7.2); Neutrophils Percent Manual 44 % (46-73); Total Cells Counted 100
[2021-11-17 08:21] LABS: Hypochromasia 1+ (NORMAL); Schistocytes None Seen (NORMAL)
[2021-11-17] MEDS: POTASSIUM CHLORIDE 20 MEQ PACKET (FOR LIQUID) 40 MEQ PO (08:55)
[2021-11-17] MEDS: VANCOMYCIN ORAL 125 MG/2.5 ML SYRUP PO ×3 (08:56→17:57)
[2021-11-17] MEDS: cloNIDine HCL 0.1 MG TABLET PO ×2 (08:56→20:23)
[2021-11-17 09:02] LABS: Glucose Point of Care 172 mg/dl (65-105)
--- NOTE | 2021-11-17 09:33 | WPDGIPROGNO ---
Progress Note: A&P Assessment and Plan (1) Pancytopenia: Code(s): D61.818 - Other pancytopenia Status: Acute Assessment and Plan: Profound pancytopenia noted on presentation likely related to chemotherapy for multiple myeloma. No significant GI bleeding evident at this time. No investigation warranted at this time. (2) ESRD (end stage renal disease) on dialysis: Code(s): N18.6 - End stage renal disease; Z99.2 - Dependence on renal dialysis Status: Acute Assessment and Plan: End-stage renal disease likely contributes to chronic anemia. Patient remains on dialysis. (3) C. difficile diarrhea: Code(s): A04.72 - Enterocolitis due to Clostridium difficile, not specified as recurrent Status: Acute Assessment and Plan: C difficile diarrhea reported a custodial prior to presentation. Plan to complete course of antibiotic therapy at this time. (4) Multiple myeloma: Code(s): C90.00 - Multiple myeloma not having achieved remission Status: Chronic Assessment and Plan: Active multiple myeloma. Currently followed by heme on CT. Continue therapy per their direction. Likely accounts for hematologic abnormalities. (5) Coagulopathy: Code(s): D68.9 - Coagulation defect, unspecified Status: Acute Assessment and Plan: coagulopathy likely related to Eliquis use. This is corrected promptly with plasma infusion. Subjective Date/time seen: 11/17/21 09:33 Patient much more alert today. Still at bedrest in the ICU. No evidence for bleeding. Denies abdominal pain. Review of Systems Review of Systems: Review of systems noncontributory. Exam Narrative: Physical exam reveals patient be alert. Multiple more color in her skin. HEENT exam reveals no icterus. Lungs are clear. Heart without murmur. Abdomen bowel sounds present soft and nontender. Objective Data Vital Signs Vital Signs: Vital Signs - 24 hr 11/16/21 09:47 11/16/21 09:48 11/16/21 10:00 Temperature 97.8 F Pulse Rate 106 H 106 H 107 H Respiratory Rate 13 Blood Pressure 163/85 H 176/158 H 143/113 H Pulse Oximetry 100 Oxygen Delivery 11/16/21 10:15 11/16/21 10:43 11/16/21 10:30 Temperature 97.8 F Pulse Rate 108 H 106 H 110 H Respiratory Rate 13 Blood Pressure 164/84 H 166/115 H 177/85 H Pulse Oximetry 100 Oxygen Delivery 11/16/21 10:45 11/16/21 11:00 11/16/21 11:00 Temperature 98.5 F Pulse Rate 107 H 108 H 108 H Respiratory Rate 12 Blood Pressure 166/115 H 187/105 H 190/100 H Pulse Oximetry 100 Oxygen Delivery 11/16/21 11:15 11/16/21 11:30 11/16/21 10:27 Temperature 97.8 F Pulse Rate 107 H 109 H 107 H Respiratory Rate 15 Blood Pressure 182/100 H 172/97 H 164/84 H Pulse Oximetry 100 Oxygen Delivery 11/16/21 10:00 11/16/21 10:00 11/16/21 11:45 Temperature Pulse Rate 108 H 105 H 114 H Respiratory Rate 16 Blood Pressure 143/113 H 153/75 H Pulse Oximetry 99 Oxygen Delivery 11/16/21 12:00 11/16/21 12:15 11/16/21 12:30 Temperature Pulse Rate 112 H 116 H 115 H Respiratory Rate Blood Pressure 199/108 H 209/86 H 225/91 H Pulse Oximetry Oxygen Delivery 11/16/21 12:00 11/16/21 12:00 11/16/21 12:00 Temperature 97.8 F Pulse Rate 117 H 116 H Respiratory Rate 13 Blood Pressure 199/105 H Pulse Oximetry 99 100 Oxygen Delivery Room Air 11/16/21 12:43 11/16/21 12:43 11/16/21 14:12 Temperature 97.8 F Pulse Rate 118 H 118 H 116 H Respiratory Rate 16 Blood Pressure 191/87 H Pulse Oximetry 99 Oxygen Delivery 11/16/21 14:14 11/16/21 14:00 11/16/21 14:00 Temperature 97.8 F Pulse Rate 116 H 114 H 114 H Respiratory Rate 13 Blood Pressure 187/68 H Pulse Oximetry 99 Oxygen Delivery 11/16/21 14:27 11/16/21 15:22 11/16/21 15:36 Temperature 97.9 F 97.8 F 98.0 F Pulse Rate 113 H 117 H 20 L Respiratory Rate 16 20 113 H Blood Pressu
[2021-11-17 09:45] LABS: Free T4 Free Thyroxine 1.49 ng/mL (0.78-2.19)
--- NOTE | 2021-11-17 11:04 | PM.PNNEP ---
Progress Note: A&P Assessment and Plan (1) End stage renal disease: Code(s): N18.6 - End stage renal disease Status: Chronic Assessment and Plan: HD yesterday continue M/W/ schedule for now follow electrolytes, volume status, and clearance (2) Hypoxia: Code(s): R09.02 - Hypoxemia Status: Acute Assessment and Plan: resolved -- off supplemental oxygen admission CXR suggestive of pulmonary edema CT chest confirms this questionable pneumonia(?) follow blood cultures on antibioitics continue aggressive ultrafiltration/fluid removal with HD as tolerated by hemodynamics follow oxygenation and respiratory status (3) Chronic anemia: Code(s): D64.9 - Anemia, unspecified Status: Acute Assessment and Plan: quit severe on presentation s/p 4 units of PRBC transfusion to date presumably secondary to multiple myeloma and ESRD complicated by coagulopathy as well PRBC transfusion per protocol GI/Hematology/Ob-Sales Support Coordinator recommendations noted no intervention planned by GI Ob-Sales Support Coordinator suspects spotting due to atrophic tissues with manipulation and low platelets Hem/Onc recommending possible repeat bone marrow biopsy follow trend of H/H (4) Pancytopenia: Code(s): D61.818 - Other pancytopenia Status: Acute Assessment and Plan: likely due to chemotherapy and multiple myeloma PRBC/platelet/FFP transfusion PRN follow trend of CBC (5) Hypertension: Code(s): I10 - Essential (primary) hypertension Status: Chronic Assessment and Plan: running on the high side recently resumed on home medications on PRN IV medications as well (6) Multiple myeloma: Code(s): C90.00 - Multiple myeloma not having achieved remission Status: Chronic Assessment and Plan: on treatment with chemotherapy as an outpatient Oncology following chemotherapy on hold currently (7) Coagulopathy: Code(s): D68.9 - Coagulation defect, unspecified Status: Acute Assessment and Plan: profoundly elevated on admission better s/p FFP and Vitamin K follow trend of INR (8) Altered mental status: Code(s): R41.82 - Altered mental status, unspecified Status: Acute Assessment and Plan: cllinically better since admission head CT negative ammonia + TSH okay follow mentation (9) Insulin dependent type 2 diabetes mellitus: Code(s): E11.9 - Type 2 diabetes mellitus without complications; 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 Subjective Date/time seen: 11/17/21 11:04 Tolerated dialysis treatment yesterday with no acute issues or problems; mentation seems better if not close to baseline; H/H relatively stable at this time; poor oral intake noted but patient reports no real appetite at this time; ongoing issues with hypertension/elevated BP with medication adjustments noted. Exam Narrative: General: WD/WN female in NAD Heart: normal S1 and S2; no rub Lungs: clear anteriorly; decreased at bases Abdomen: soft, nontender, nondistended, positive bowel sounds Extremities: no cyanosis or clubbing; trace edema Skin: warm and dry Objective Data Vital Signs Vital Signs: Vital Signs Temp Pulse Resp BP Pulse Ox O2 Del Method 11/17/21 10:00 107 H 14 122/69 100 11/17/21 10:00 107 H 11/17/21 08:00 36.8 C 110 H 13 173/85 H 100 11/17/21 08:00 110 H 11/17/21 09:27 Room Air 11/17/21 08:14 108 H 11/17/21 08:12 108 H 11/17/21 06:00 108 H 13 169/107 H 100 11/17/21 04:00 111 H 11/17/21 04:00 36.1 C L 105 H 12 140/107 H 100 11/17/21 04:00 100 CPAP 11/17/21 03:30 36.0 C L 106 H 13 148/74 H 100 11/17/21 02:43 36.0 C L 104 H 13 148/74 H 99 11/17/21 01:43 36.1 C L 1
--- NOTE | 2021-11-17 11:04 | P.PNNP_ITS ---
Progress Note: A&P Assessment and Plan (1) End stage renal disease: Code(s): N18.6 - End stage renal disease Status: Chronic Assessment and Plan: * HD yesterday * continue M/W/ schedule for now * follow electrolytes, volume status, and clearance (2) Hypoxia: Code(s): R09.02 - Hypoxemia Status: Acute Assessment and Plan: * resolved -- off supplemental oxygen * admission CXR suggestive of pulmonary edema * CT chest confirms this * questionable pneumonia(?) * follow blood cultures * on antibioitics * continue aggressive ultrafiltration/fluid removal with HD as tolerated by hemodynamics * follow oxygenation and respiratory status (3) Chronic anemia: Code(s): D64.9 - Anemia, unspecified Status: Acute Assessment and Plan: * quit severe on presentation * s/p 4 units of PRBC transfusion to date * presumably secondary to multiple myeloma and ESRD * complicated by coagulopathy as well * PRBC transfusion per protocol * GI/Hematology/Ob-Flight Communications Specialist recommendations noted * no intervention planned by GI * Ob-Flight Communications Specialist suspects spotting due to atrophic tissues with manipulation and low platelets * Hem/Onc recommending possible repeat bone marrow biopsy * follow trend of H/H (4) Pancytopenia: Code(s): D61.818 - Other pancytopenia Status: Acute Assessment and Plan: * likely due to chemotherapy and multiple myeloma * PRBC/platelet/FFP transfusion PRN * follow trend of CBC (5) Hypertension: Code(s): I10 - Essential (primary) hypertension Status: Chronic Assessment and Plan: * running on the high side recently * resumed on home medications * on PRN IV medications as well (6) Multiple myeloma: Code(s): C90.00 - Multiple myeloma not having achieved remission Status: Chronic Assessment and Plan: * on treatment with chemotherapy as an outpatient * Oncology following * chemotherapy on hold currently (7) Coagulopathy: Code(s): D68.9 - Coagulation defect, unspecified Status: Acute Assessment and Plan: * profoundly elevated on admission * better s/p FFP and Vitamin K * follow trend of INR (8) Altered mental status: Code(s): R41.82 - Altered mental status, unspecified Status: Acute Assessment and Plan: * cllinically better since admission * head CT negative * ammonia + TSH okay * follow mentation (9) Insulin dependent type 2 diabetes mellitus: Code(s): E11.9 - Type 2 diabetes mellitus without complications; 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 Subjective Date/time seen: 11/17/21 11:04 Tolerated dialysis treatment yesterday with no acute issues or problems; mentation seems better if not close to baseline; H/H relatively stable at this time; poor oral intake noted but patient reports no real appetite at this time; ongoing issues with hypertension/elevated BP with medication adjustments noted. Exam Narrative: General: WD/WN female in NAD Heart: normal S1 and S2; no rub Lungs: clear anteriorly; decreased at bases Abdomen: soft, nontender, nondistended, positive bowel sounds Extremities: no cyanosis or clubbing; trace edema Skin: warm and dry Objective Data Vital Signs Vital Signs:
[2021-11-17 13:39] LABS: Glucose Point of Care 182 mg/dl (65-105)
--- NOTE | 2021-11-17 14:23 | PM.IMPN ---
Progress Note: A&P Assessment and Plan (1) ESRD (end stage renal disease) on dialysis: Code(s): N18.6 - End stage renal disease; Z99.2 - Dependence on renal dialysis Status: Acute Assessment and Plan: She has a right jugular tunnel catheter for hemodialysis. She she normally goes for dialysis on Friday She was dialyzed yesterday 3.74 L fluid was removed Her electrolytes are acceptable Nephrology is following. (2) Hypoxia: Code(s): R09.02 - Hypoxemia Status: Acute Assessment and Plan: CT chest noncontrast was done and confirmed the patient had mild pulmonary edema and does not appear to have a pneumonia Most likely pulmonary edema from ESRD On presentation Pneumonia was suspected and blood cultures, urine pneumococcal and Legionella antigen were sent Currently on empiric antibiotics vancomycin cefepime Her hypoxia has improved and she is now on room air. CT scan did not suggest any pneumonia I will deescalate antibiotics (3) Multiple myeloma: Code(s): C90.00 - Multiple myeloma not having achieved remission Status: Chronic Assessment and Plan: She is on chemotherapy with Velcade Oncology has been consulted and she may need repeat bone marrow biopsy to discharge Hold Velcade at this time (4) Chronic anemia: Code(s): D64.9 - Anemia, unspecified Status: Acute Assessment and Plan: Patient has chronic anemia with multiple etiologies the form of multiple myeloma, chronic kidney disease Presented with hemoglobin of 4 She has received 4 units of PRBC Her Hemoccult was negative. Patient evaluated by GI. No plan for intervention at this time. Continue IV PPI q.12 hours Patient was also seen by Hematology and they recommend repeat bone marrow biopsy. Patient is on Procrit with dialysis Nursing staff also reported patient had some spotting suggestive of vaginal bleeding. Patient is not having. Was evaluated by meat molder and this suspect that she has some spotting from her atrophic tissue due to low platelets. No further recommendations at this time Continue to hold aspirin Patient was discharged on Eliquis on her last hospitalization from [place] but since then patient has been admitted at outside hospital where it appears there was discontinue as I do not see her on half-way medication list. (5) Pancytopenia: Code(s): D61.818 - Other pancytopenia Status: Acute Assessment and Plan: Patient has chronic pancytopenia from her chemotherapy and multiple myeloma Monitor platelet count-patient received 2 units of platelets 11/16 Monitor WBC count (6) Coagulopathy: Code(s): D68.9 - Coagulation defect, unspecified Status: Acute Assessment and Plan: Patient's INR is 15.3 and PTT is 115 Patient was discharged on Eliquis on her last hospitalization from [place] but since then patient has been admitted at outside hospital and appears that Eliquis was discontinued as I do not see on half-way medication list. She was given 2 units of FFP which has brought her INR acceptable range. She was also given 10 mg of vitamin K. INR today is 1.2. Continue to monitor (7) Altered mental status: Code(s): R41.82 - Altered mental status, unspecified Status: Acute Assessment and Plan: On my examination patient has nonfocal exam and is partially oriented. This was likely delirium or metabolic encephalopathy Head CT is negative Normal ammonia Elevated TSH of 6.9. Check free T3 and free T4 ABG reviewed Patient is much more awake and and fully oriented today. Continue to avoid sedatives (8) Sepsis: Code(s): A41.9 - Sepsis, unspecified organism Status: Acute Assessment and Plan: I reviewed the chart from [facility] and appears the patient had dialysis catheter related MSSA bacteremia and sepsis. She was discharged on cefazolin. Per patient's niece, at [facility],patient had
[2021-11-17 16:16] LABS: Hematocrit 24.5 % (37.0-47.0); Hemoglobin 8.3 g/dL (12.0-15.0); Immature Platelet Fraction Pct 4.8 % (0.9-11.2); Mean Corpuscular HGB Conc 33.9 g/dl (32-36); Mean Corpuscular Hemoglobin 30.7 pg (26-34); Mean Corpuscular Volume 90.7 fl (80-100); Mean Platelet Volume 9.8 fl (7.4-10.4); Platelet Count Result 84 k/mm3 (150-375); Red Cell Distribution Width 15.8 % (11.5-14.5)
[2021-11-17 17:51] LABS: Glucose Point of Care 142 mg/dl (65-105)
--- NOTE | 2021-11-17 19:02 | PC.NURSE ---
This patient, Jaimie Nix, was received from [ICU-7 ] on 11/17/21 at 1902. Patient/family oriented to unit policies and routines
[2021-11-17] MEDS: CEFEPIME 0.5 GM in DEXTROSE 5% IN WATER 50 ML IVPB (20:24)
[2021-11-17] MEDS: HYDROcodone/acetaminophen (*CRX) 5-325 MG TABLET 1 TAB PO (20:24)
[2021-11-17 20:44] LABS: Glucose Point of Care 148 mg/dl (65-105)
[2021-11-17] MEDS: ONDANSETRON INJ 4 MG/2 ML VIAL IV PUSH (21:31)
[2021-11-18] VITALS (12 sets, daily range): BP systolic 152–177; BP diastolic 67–90; PULSE 72–108; RESP 12–20; TEMP 36.3–36.9; O2SAT 99–100
[2021-11-18 05:09] LABS: Hematocrit 25.2 % (37.0-47.0); Hemoglobin 8.2 g/dL (12.0-15.0); Immature Platelet Fraction Pct 4.9 % (0.9-11.2); Mean Corpuscular HGB Conc 32.5 g/dl (32-36); Mean Corpuscular Hemoglobin 30.4 pg (26-34); Mean Corpuscular Volume 93.3 fl (80-100); Mean Platelet Volume 9.9 fl (7.4-10.4); Platelet Count Result 69 k/mm3 (150-375); Red Cell Distribution Width 15.8 % (11.5-14.5); White Blood Count 2.5 K/mm3 (4.5-10.0)
[2021-11-18 05:17] LABS: Alanine Aminotransferase 6 U/L (6-35); Albumin Level 3.1 g/dL (3.5-5.1); Alkaline Phosphatase 78 U/L (38-126); Anion Gap 9 mmol/L (8-16); Aspartate Amino Transferase 17 U/L (14-36); Bilirubin,Total 0.4 mg/dL (0.2-1.3); Blood Urea Nitrogen 30 mg/dL (7-17); Calcium 8.6 mg/dL (8.4-10.2); Carbon Dioxide 27 mmol/L (22-30); Chloride 95 mmol/L (98-107); Estimated CRCL calculation 10 ml/min; Estimated Glomerular Filt Rate 7; Glucose 114 mg/dL (65-110); Magnesium 1.9 mg/dL (1.6-2.3); Potassium 3.6 mmol/L (3.4-5.0); Sodium 131 mmol/L (137-145)
[2021-11-18] MEDS: hydrALAZINE HCL 50 MG TABLET 100 MG PO ×3 (05:58→21:00)
[2021-11-18 06:21] LABS: Anisocytosis 1+ (NORMAL); Atypical Lymphocytes Present; Band Neutrophils Percent 8 % (0-6); Eosinophils Percent Manual 4 % (0-4); Hypochromasia 1+ (NORMAL); Lymphocytes Absolute Manual 0.77 K/mm3 (1.1-4.5); Macrocytosis 1+ (NORMAL); Metamyelocytes Percent 2 %; Microcytosis 1+ (NORMAL); Monocytes Absolute Manual 0.22 K/mm3 (0.1-0.90); Monocytes Percent Manual 9 % (3-9); Neutrophils Absolute Manual 1.35 K/mm3 (1.7-7.2); Neutrophils Percent Manual 46 % (46-73); Nucleated Red Blood Cells 5 %; Ovalocytes 1+ (NORMAL); Platelet Estimate Decreased (Adequate); Schistocytes None Seen (NORMAL); Total Cells Counted 100
[2021-11-18 08:24] LABS: Glucose Point of Care 139 mg/dl (65-105)
[2021-11-18] MEDS: ISOSORBIDE MONONITRATE 60 MG TAB.ER.24H PO (11:01)
[2021-11-18] MEDS: METOPROLOL SUCCINATE EXT REL 100 MG TABCR PO ×2 (11:01→21:01)
[2021-11-18] MEDS: PANTOPRAZOLE SODIUM IV 40 MG VIAL IV PUSH ×2 (11:02→21:01)
[2021-11-18] MEDS: AMIODARONE HCL 200 MG TABLET PO (11:02)
[2021-11-18] MEDS: cloNIDine HCL 0.1 MG TABLET PO ×2 (11:02→21:01)
[2021-11-18] MEDS: PRIMIDONE 125 MG TABLET PO ×2 (11:02→18:17)
[2021-11-18] MEDS: amLODIPine BESYLATE 5 MG TABLET 10 MG PO (11:02)
[2021-11-18] MEDS: VANCOMYCIN ORAL 125 MG/2.5 ML SYRUP PO ×3 (11:06→18:17)
[2021-11-18 12:25] LABS: Glucose Point of Care 218 mg/dl (65-105)
--- NOTE | 2021-11-18 12:41 | P.PNNP_ITS ---
Progress Note: A&P Assessment and Plan (1) End stage renal disease: Code(s): N18.6 - End stage renal disease Status: Chronic Assessment and Plan: * HD tomorrow * continue M/W/F schedule for now * follow electrolytes, volume status, and clearance (2) Hypoxia: Code(s): R09.02 - Hypoxemia Status: Acute Assessment and Plan: * resolved -- off supplemental oxygen * admission CXR suggestive of pulmonary edema * CT chest confirms this * questionable pneumonia(?) * blood cultures negative * off antibiotics * continue ultrafiltration/fluid removal with HD as tolerated by hemodynamics * follow oxygenation and respiratory status (3) Chronic anemia: Code(s): D64.9 - Anemia, unspecified Status: Acute Assessment and Plan: * quit severe on presentation * s/p 4 units of PRBC transfusion to date * presumably secondary to multiple myeloma and ESRD * complicated by coagulopathy as well * PRBC transfusion per protocol * GI/Hematology/Ob-Band Head Saw Operator recommendations noted * no intervention planned by GI * Ob-Band Head Saw Operator suspects spotting due to atrophic tissues with manipulation and low platelets * Hem/Onc recommending possible repeat bone marrow biopsy * follow trend of H/H (4) Pancytopenia: Code(s): D61.818 - Other pancytopenia Status: Acute Assessment and Plan: * likely due to chemotherapy and multiple myeloma * PRBC/platelet/FFP transfusion PRN * follow trend of CBC (5) Hypertension: Code(s): I10 - Essential (primary) hypertension Status: Chronic Assessment and Plan: * running on the high side recently * resumed on home medications * on PRN IV medications as well (6) Multiple myeloma: Code(s): C90.00 - Multiple myeloma not having achieved remission Status: Chronic Assessment and Plan: * on treatment with chemotherapy as an outpatient * Oncology following * chemotherapy on hold currently (7) Coagulopathy: Code(s): D68.9 - Coagulation defect, unspecified Status: Acute Assessment and Plan: * profoundly elevated on admission * better s/p FFP and Vitamin K * follow trend of INR (8) Altered mental status: Code(s): R41.82 - Altered mental status, unspecified Status: Acute Assessment and Plan: * cllinically better since admission * head CT negative * ammonia + TSH okay * follow mentation (9) Insulin dependent type 2 diabetes mellitus: Code(s): E11.9 - Type 2 diabetes mellitus without complications; Z79.4 - skilled nursing (current) use of insulin Status: Chronic Assessment and Plan: * follow accuchecks * glycemic control Will continue to follow. Subjective Date/time seen: 11/18/21 12:41 Transferred out of the ICU yesterday; overall, seems to be doing reasonably well; stable hemodynamics (if not hypertensive at times) in the last 24 hours; H/H holding steady since last PRBC transfusion; no other acute issues/events overnight or earlier this AM. Exam Narrative: General: WD/WN female in NAD Heart: normal S1 and S2; no rub Lungs: clear anteriorly; decreased at bases Abdomen: soft, nontender, nondistended, positive bowel sounds Extremities: no cyanosis or clubbing; trace edema Skin: warm and intact Objective Data Vital Signs Vital Signs: Vital Signs
--- NOTE | 2021-11-18 12:41 | PM.PNNEP ---
Progress Note: A&P Assessment and Plan (1) End stage renal disease: Code(s): N18.6 - End stage renal disease Status: Chronic Assessment and Plan: HD tomorrow continue M/W/F schedule for now follow electrolytes, volume status, and clearance (2) Hypoxia: Code(s): R09.02 - Hypoxemia Status: Acute Assessment and Plan: resolved -- off supplemental oxygen admission CXR suggestive of pulmonary edema CT chest confirms this questionable pneumonia(?) blood cultures negative off antibiotics continue ultrafiltration/fluid removal with HD as tolerated by hemodynamics follow oxygenation and respiratory status (3) Chronic anemia: Code(s): D64.9 - Anemia, unspecified Status: Acute Assessment and Plan: quit severe on presentation s/p 4 units of PRBC transfusion to date presumably secondary to multiple myeloma and ESRD complicated by coagulopathy as well PRBC transfusion per protocol GI/Hematology/Ob-Solar Technician recommendations noted no intervention planned by GI Ob-Solar Technician suspects spotting due to atrophic tissues with manipulation and low platelets Hem/Onc recommending possible repeat bone marrow biopsy follow trend of H/H (4) Pancytopenia: Code(s): D61.818 - Other pancytopenia Status: Acute Assessment and Plan: likely due to chemotherapy and multiple myeloma PRBC/platelet/FFP transfusion PRN follow trend of CBC (5) Hypertension: Code(s): I10 - Essential (primary) hypertension Status: Chronic Assessment and Plan: running on the high side recently resumed on home medications on PRN IV medications as well (6) Multiple myeloma: Code(s): C90.00 - Multiple myeloma not having achieved remission Status: Chronic Assessment and Plan: on treatment with chemotherapy as an outpatient Oncology following chemotherapy on hold currently (7) Coagulopathy: Code(s): D68.9 - Coagulation defect, unspecified Status: Acute Assessment and Plan: profoundly elevated on admission better s/p FFP and Vitamin K follow trend of INR (8) Altered mental status: Code(s): R41.82 - Altered mental status, unspecified Status: Acute Assessment and Plan: cllinically better since admission head CT negative ammonia + TSH okay follow mentation (9) Insulin dependent type 2 diabetes mellitus: Code(s): E11.9 - Type 2 diabetes mellitus without complications; 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 Subjective Date/time seen: 11/18/21 12:41 Transferred out of the ICU yesterday; overall, seems to be doing reasonably well; stable hemodynamics (if not hypertensive at times) in the last 24 hours; H/H holding steady since last PRBC transfusion; no other acute issues/events overnight or earlier this AM. Exam Narrative: General: WD/WN female in NAD Heart: normal S1 and S2; no rub Lungs: clear anteriorly; decreased at bases Abdomen: soft, nontender, nondistended, positive bowel sounds Extremities: no cyanosis or clubbing; trace edema Skin: warm and intact Objective Data Vital Signs Vital Signs: Vital Signs Temp Pulse Resp BP Pulse Ox O2 Del Method 11/18/21 12:00 36.9 C 108 H 20 165/79 H 99 11/18/21 11:02 100 11/18/21 11:01 100 11/18/21 08:00 36.9 C 100 16 177/90 H 99 11/18/21 06:00 98 11/18/21 04:00 103 H 11/18/21 04:00 CPAP 11/18/21 04:00 36.3 C L 98 16 154/70 H 100 11/18/21 01:53 102 H 11/18/21 00:00 105 H 11/17/21 22:00 104 H 11/17/21 20:00 106 H 11/18/21 00:00 CPAP 11/17/21 23:55 36.2 C L 105 H 20 127/67 97 11/17/21 23:27 104 H 11 L 99 Autopap 11/17/21 20:00 36.2 C L 77 20 191/88 H 94 11/17/21 20:23 1
--- NOTE | 2021-11-18 14:25 | PM.IMPN ---
Progress Note: A&P Assessment and Plan (1) ESRD (end stage renal disease) on dialysis: Code(s): N18.6 - End stage renal disease; Z99.2 - Dependence on renal dialysis Status: Acute Assessment and Plan: She has a right jugular tunnel catheter for hemodialysis. She she normally goes for dialysis on Friday Nephrology following for inpatient hemodialysis Labs reviewed electrolytes except (2) Hypoxia: Code(s): R09.02 - Hypoxemia Status: Acute Assessment and Plan: CT chest noncontrast was done and confirmed the patient had mild pulmonary edema and does not appear to have a pneumonia Most likely pulmonary edema from ESRD On presentation Pneumonia was suspected and blood cultures, urine pneumococcal and Legionella antigen were sent Currently on empiric antibiotics vancomycin cefepime Her hypoxia has improved and she is now on room air. CT scan did not suggest any pneumonia She is off vancomycin continues on cefepime day 4 (3) Multiple myeloma: Code(s): C90.00 - Multiple myeloma not having achieved remission Status: Chronic Assessment and Plan: She is on chemotherapy with Velcade Oncology has been consulted and she may need repeat bone marrow biopsy to discharge Hold Velcade at this time (4) Chronic anemia: Code(s): D64.9 - Anemia, unspecified Status: Acute Assessment and Plan: Patient has chronic anemia with multiple etiologies the form of multiple myeloma, chronic kidney disease Presented with hemoglobin of 4 on admission. She has received 4 units of PRBC Her Hemoccult was negative. Patient evaluated by GI. No plan for intervention at this time. Continue IV PPI q.12 hours Patient was also seen by Hematology and they recommend repeat bone marrow biopsy. Patient is on Procrit with dialysis Nursing staff also reported patient had some spotting suggestive of vaginal bleeding. Patient is not having. Was evaluated by mixing and dispensing supervisor and this suspect that she has some spotting from her atrophic tissue due to low platelets. No further recommendations at this time Continue to hold aspirin Patient was discharged on Eliquis on her last hospitalization from [place] but since then patient has been admitted at outside hospital where it appears this was discontinued as I do not see her on custodial medication list. H&H remained stable post transfusion (5) Pancytopenia: Code(s): D61.818 - Other pancytopenia Status: Acute Assessment and Plan: Patient has chronic pancytopenia from her chemotherapy and multiple myeloma Monitor platelet count-patient received 2 units of platelets 11/16 Monitor WBC count hemoglobin and platelet count (6) Coagulopathy: Code(s): D68.9 - Coagulation defect, unspecified Status: Acute Assessment and Plan: Patient's INR is 15.3 and PTT is 115 Patient was discharged on Eliquis on her last hospitalization from [place] but since then patient has been admitted at outside hospital and appears that Eliquis was discontinued as I do not see on custodial medication list. She was given 2 units of FFP which has brought her INR acceptable range. She was also given 10 mg of vitamin K. INR normalized since then (7) Altered mental status: Code(s): R41.82 - Altered mental status, unspecified Status: Acute Assessment and Plan: Presented with altered mental status. This was likely delirium or metabolic encephalopathy Head CT is negative Normal ammonia Elevated TSH of 6.9. Check free T3 and free T4 ABG reviewed 7.53/42/102/34 This has since resolved (8) Sepsis: Code(s): A41.9 - Sepsis, unspecified organism Status: Acute Assessment and Plan: I reviewed the chart from [facility] and appears the patient had dialysis catheter related MSSA bacteremia and sepsis. She was discharged on cefazolin. Per patient's niece, at [facility],patient had her dialysis catheter
[2021-11-18 16:02] LABS: Hematocrit 25.5 % (37.0-47.0); Hemoglobin 8.3 g/dL (12.0-15.0); Immature Platelet Fraction Pct 5.7 % (0.9-11.2); Mean Corpuscular HGB Conc 32.5 g/dl (32-36); Mean Corpuscular Hemoglobin 30.4 pg (26-34); Mean Corpuscular Volume 93.4 fl (80-100); Mean Platelet Volume 10.3 fl (7.4-10.4); Platelet Count Result 73 k/mm3 (150-375); Red Blood Count 2.73 M/mm3 (4.2-5.4); White Blood Count 3.6 K/mm3 (4.5-10.0)
[2021-11-18 16:30] LABS: Hemoglobin A1C 5.1 % (<5.7)
[2021-11-18 18:20] LABS: Glucose Point of Care 166 mg/dl (65-105)
--- NOTE | 2021-11-18 19:43 | PC.NURSE ---
This patient, Jaimie Nix, was transferred to [facility] on 11/18/21 at 1915. Personal belongings sent with patient. Report given to Michelle COOPER. Appropriate documentation sent with patient.
[2021-11-18] MEDS: ACETAMINOPHEN 325 MG TABLET 650 MG PO (19:47)
[2021-11-18 20:41] LABS: Glucose Point of Care 164 mg/dl (65-105)
[2021-11-18] MEDS: CEFEPIME 0.5 GM in DEXTROSE 5% IN WATER 50 ML IVPB (21:00)
--- NOTE | 2021-11-18 21:40 | PC.NURSE ---
Addendum entered by Michelle Amaya RN 11/18/21 21:41: 1925 NOT 925 Original Note: 925 RECEIVED PT FROM IMU PER BED
[2021-11-19] VITALS (21 sets, daily range): BP systolic 140–211; BP diastolic 60–170; PULSE 80–106; RESP 14–21; TEMP 36.3–36.9; O2SAT 98–100
[2021-11-19] MEDS: diphenhydrAMINE HCl CAP 25 MG CAPSULE 50 MG PO (00:54)
[2021-11-19] MEDS: HYDROcodone/acetaminophen (*CRX) 5-325 MG TABLET 1 TAB PO ×2 (04:28→16:41)
[2021-11-19] MEDS: hydrALAZINE HCL 50 MG TABLET 100 MG PO ×2 (04:28→14:01)
[2021-11-19 05:25] LABS: Hematocrit 22.9 % (37.0-47.0); Hemoglobin 7.4 g/dL (12.0-15.0); Immature Platelet Fraction Pct 6.2 % (0.9-11.2); Mean Corpuscular HGB Conc 32.3 g/dl (32-36); Mean Corpuscular Hemoglobin 30.5 pg (26-34); Mean Corpuscular Volume 94.2 fl (80-100); Mean Platelet Volume 10.4 fl (7.4-10.4); Platelet Count Result 52 k/mm3 (150-375); Red Blood Count 2.43 M/mm3 (4.2-5.4); Red Cell Distribution Width 15.8 % (11.5-14.5); White Blood Count 2.3 K/mm3 (4.5-10.0)
[2021-11-19 05:32] LABS: Alanine Aminotransferase 8 U/L (6-35); Albumin Level 2.9 g/dL (3.5-5.1); Alkaline Phosphatase 72 U/L (38-126); Anion Gap 11 mmol/L (8-16); Aspartate Amino Transferase 15 U/L (14-36); Bilirubin,Total 0.4 mg/dL (0.2-1.3); Blood Urea Nitrogen 39 mg/dL (7-17); Calcium 8.3 mg/dL (8.4-10.2); Carbon Dioxide 26 mmol/L (22-30); Chloride 93 mmol/L (98-107); Estimated CRCL calculation 9 ml/min; Estimated Glomerular Filt Rate 6; Glucose 144 mg/dL (65-110); Magnesium 1.9 mg/dL (1.6-2.3); Potassium 3.4 mmol/L (3.4-5.0); Sodium 130 mmol/L (137-145)
[2021-11-19 06:38] LABS: Band Neutrophils Percent 14 % (0-6); Basophils Absolute Manual 0.09 K/mm3 (0.0-0.1); Basophils Percent Manual 4 % (0-1); Eosinophils Absolute Manual 0.02 K/mm3 (0.02-0.5); Eosinophils Percent Manual 1 % (0-4); Lymphocytes Absolute Manual 0.64 K/mm3 (1.1-4.5); Metamyelocytes Percent 12 %; Monocytes Absolute Manual 0.09 K/mm3 (0.1-0.90); Monocytes Percent Manual 4 % (3-9); Myelocytes Percent 3 %; Neutrophils Percent Manual 34 % (46-73); Nucleated Red Blood Cells 2 %; Total Cells Counted 100
[2021-11-19 06:39] LABS: Anisocytosis 1+ (NORMAL); Platelet Estimate Decreased (Adequate); Poikilocytosis 1+ (NORMAL); Schistocytes None Seen (NORMAL)
[2021-11-19 08:01] LABS: Glucose Point of Care 116 mg/dl (65-105)
--- NOTE | 2021-11-19 11:05 | PCPTNOTE ---
Attempted to see patient for PT, however patient was out of room for dialysis.
--- NOTE | 2021-11-19 11:43 | P.PNNP_ITS ---
Progress Note: A&P Assessment and Plan (1) End stage renal disease: Code(s): N18.6 - End stage renal disease Status: Chronic Assessment and Plan: * HD today * continue M/W/F schedule for now * follow electrolytes, volume status, and clearance (2) Hypoxia: Code(s): R09.02 - Hypoxemia Status: Acute Assessment and Plan: * resolved -- off supplemental oxygen * admission CXR suggestive of pulmonary edema * CT chest confirms this * questionable pneumonia(?) * blood cultures negative * off antibiotics * continue ultrafiltration/fluid removal with HD as tolerated by hemodynamics * follow oxygenation and respiratory status (3) Chronic anemia: Code(s): D64.9 - Anemia, unspecified Status: Acute Assessment and Plan: * quit severe on presentation * s/p 4 units of PRBC transfusion to date * presumably secondary to multiple myeloma and ESRD * complicated by coagulopathy as well * PRBC transfusion per protocol * GI/Hematology/Ob-Cabinet Installer recommendations noted * no intervention planned by GI * Ob-Cabinet Installer suspects spotting due to atrophic tissues with manipulation and low platelets * Hem/Onc recommending possible repeat bone marrow biopsy * follow trend of H/H (4) Pancytopenia: Code(s): D61.818 - Other pancytopenia Status: Acute Assessment and Plan: * likely due to chemotherapy and multiple myeloma * PRBC/platelet/FFP transfusion PRN * follow trend of CBC (5) Hypertension: Code(s): I10 - Essential (primary) hypertension Status: Chronic Assessment and Plan: * running on the high side * resumed on home medications * on PRN IV medications as well (6) Multiple myeloma: Code(s): C90.00 - Multiple myeloma not having achieved remission Status: Chronic Assessment and Plan: * on treatment with chemotherapy as an outpatient * Oncology following * chemotherapy on hold currently (7) Coagulopathy: Code(s): D68.9 - Coagulation defect, unspecified Status: Acute Assessment and Plan: * profoundly elevated on admission * better s/p FFP and Vitamin K * follow trend of INR (8) Altered mental status: Code(s): R41.82 - Altered mental status, unspecified Status: Acute Assessment and Plan: * cllinically better since admission * head CT negative * ammonia + TSH okay * follow mentation (9) Insulin dependent type 2 diabetes mellitus: Code(s): E11.9 - Type 2 diabetes mellitus without complications; Z79.4 - public health (current) use of insulin Status: Chronic Assessment and Plan: * follow accuchecks * glycemic control Will continue to follow. Subjective Date/time seen: 11/19/21 11:43 Tolerating hemodialysis treatment at the time of my visit (seen on HD at 11:30AM); states she feels terrible and relates this to the fact she was unable to get any sleep at night; no other acute issues noted; no apparent distress currently. Exam Narrative: General: WD/WN female in NAD Heart: normal S1 and S2; no rub Lungs: clear anteriorly; decreased at bases Abdomen: soft, nontender, nondistended, positive bowel sounds Extremities: no cyanosis or clubbing; trace edema Skin: warm and intact Objective Data Vital Signs Vital Signs: Vital Signs Temp Pul
--- NOTE | 2021-11-19 11:43 | PM.PNNEP ---
Progress Note: A&P Assessment and Plan (1) End stage renal disease: Code(s): N18.6 - End stage renal disease Status: Chronic Assessment and Plan: HD today continue M/W/F schedule for now follow electrolytes, volume status, and clearance (2) Hypoxia: Code(s): R09.02 - Hypoxemia Status: Acute Assessment and Plan: resolved -- off supplemental oxygen admission CXR suggestive of pulmonary edema CT chest confirms this questionable pneumonia(?) blood cultures negative off antibiotics continue ultrafiltration/fluid removal with HD as tolerated by hemodynamics follow oxygenation and respiratory status (3) Chronic anemia: Code(s): D64.9 - Anemia, unspecified Status: Acute Assessment and Plan: quit severe on presentation s/p 4 units of PRBC transfusion to date presumably secondary to multiple myeloma and ESRD complicated by coagulopathy as well PRBC transfusion per protocol GI/Hematology/Ob-Research Associate Policy recommendations noted no intervention planned by GI Ob-Research Associate Policy suspects spotting due to atrophic tissues with manipulation and low platelets Hem/Onc recommending possible repeat bone marrow biopsy follow trend of H/H (4) Pancytopenia: Code(s): D61.818 - Other pancytopenia Status: Acute Assessment and Plan: likely due to chemotherapy and multiple myeloma PRBC/platelet/FFP transfusion PRN follow trend of CBC (5) Hypertension: Code(s): I10 - Essential (primary) hypertension Status: Chronic Assessment and Plan: running on the high side resumed on home medications on PRN IV medications as well (6) Multiple myeloma: Code(s): C90.00 - Multiple myeloma not having achieved remission Status: Chronic Assessment and Plan: on treatment with chemotherapy as an outpatient Oncology following chemotherapy on hold currently (7) Coagulopathy: Code(s): D68.9 - Coagulation defect, unspecified Status: Acute Assessment and Plan: profoundly elevated on admission better s/p FFP and Vitamin K follow trend of INR (8) Altered mental status: Code(s): R41.82 - Altered mental status, unspecified Status: Acute Assessment and Plan: cllinically better since admission head CT negative ammonia + TSH okay follow mentation (9) Insulin dependent type 2 diabetes mellitus: Code(s): E11.9 - Type 2 diabetes mellitus without complications; Z79.4 - senior living (current) use of insulin Status: Chronic Assessment and Plan: follow accuchecks glycemic control Will continue to follow. Subjective Date/time seen: 11/19/21 11:43 Tolerating hemodialysis treatment at the time of my visit (seen on HD at 11:30AM); states she feels terrible and relates this to the fact she was unable to get any sleep at night; no other acute issues noted; no apparent distress currently. Exam Narrative: General: WD/WN female in NAD Heart: normal S1 and S2; no rub Lungs: clear anteriorly; decreased at bases Abdomen: soft, nontender, nondistended, positive bowel sounds Extremities: no cyanosis or clubbing; trace edema Skin: warm and intact Objective Data Vital Signs Vital Signs: Vital Signs Temp Pulse Resp BP Pulse Ox O2 Del Method 11/19/21 10:05 93 198/96 H 11/19/21 10:00 36.9 C 98 18 182/79 H 11/19/21 08:15 36.7 C 93 14 196/93 H 100 11/19/21 04:28 36.6 C 98 14 170/89 H 100 11/19/21 00:00 36.4 C 92 16 152/85 H 99 11/18/21 22:50 91 12 99 Autopap 11/18/21 21:01 72 11/18/21 19:40 36.6 C 93 16 152/67 H 100 11/18/21 16:00 36.4 C L 99 16 152/76 H 99 11/18/21 12:00 36.9 C 108 H 20 165/79 H 99 Intake/Output Intake/Output: Intake & Output 11/16/21 11/17/21 11/18/21 11/19/21 23:59 23:59 23:59 23:59 Intake Total 3687 785 780 390 Output Total 3790 50 200 100 Balance
[2021-11-19] MEDS: cloNIDine HCL 0.1 MG TABLET PO ×3 (12:11→21:43)
[2021-11-19] MEDS: EPOETIN ALFA-EPBX 20,000 UNITS/ML VIAL 20000 UNITS IV PUSH (12:19)
[2021-11-19] MEDS: SODIUM CHLORIDE 0.9% IV 1,000 ML 999 ML IV CONT (12:19)
--- NOTE | 2021-11-19 12:42 | PCPTNOTE ---
The patient treatment was not able to be completed on 11/19/2021 due to patient out of room for dialysis. Will plan to continue treatment per plan of care.
[2021-11-19] MEDS: AMIODARONE HCL 200 MG TABLET PO (13:57)
[2021-11-19] MEDS: amLODIPine BESYLATE 5 MG TABLET 10 MG PO (13:59)
[2021-11-19] MEDS: ISOSORBIDE MONONITRATE 60 MG TAB.ER.24H PO (14:00)
[2021-11-19] MEDS: PANTOPRAZOLE SODIUM IV 40 MG VIAL IV PUSH ×2 (14:00→21:43)
[2021-11-19] MEDS: METOPROLOL SUCCINATE EXT REL 100 MG TABCR PO (14:00)
[2021-11-19] MEDS: PRIMIDONE 125 MG TABLET PO ×2 (14:00→21:43)
[2021-11-19] MEDS: VANCOMYCIN ORAL 125 MG/2.5 ML SYRUP PO ×3 (14:00→21:43)
[2021-11-19 14:14] LABS: Glucose Point of Care 131 mg/dl (65-105)
--- NOTE | 2021-11-19 14:18 | PM.IMPN ---
Progress Note: A&P Assessment and Plan (1) ESRD (end stage renal disease) on dialysis: Code(s): N18.6 - End stage renal disease; Z99.2 - Dependence on renal dialysis Status: Acute Assessment and Plan: She has a right jugular tunnel catheter for hemodialysis. She she normally goes for dialysis on Friday Nephrology following for inpatient hemodialysis Labs reviewed electrolytes acceptable (2) Hypoxia: Code(s): R09.02 - Hypoxemia Status: Acute Assessment and Plan: CT chest noncontrast was done and confirmed the patient had mild pulmonary edema and does not appear to have a pneumonia Most likely pulmonary edema from ESRD On presentation Pneumonia was suspected and blood cultures, urine pneumococcal and Legionella antigen were sent Currently on empiric antibiotics vancomycin cefepime Her hypoxia has improved and she is now on room air. CT scan did not suggest any pneumonia She is off vancomycin continues on cefepime day 5 (3) Multiple myeloma: Code(s): C90.00 - Multiple myeloma not having achieved remission Status: Chronic Assessment and Plan: She is on chemotherapy with Velcade Oncology has been consulted and she may need repeat bone marrow biopsy to discharge Hold Velcade at this time discussed with Dr. Finch. plan for bone marrow biopsy in am. (4) Chronic anemia: Code(s): D64.9 - Anemia, unspecified Status: Acute Assessment and Plan: Patient has chronic anemia with multiple etiologies the form of multiple myeloma, chronic kidney disease Presented with hemoglobin of 4 on admission. She has received 4 units of PRBC Her Hemoccult was negative. Patient evaluated by GI. No plan for intervention at this time. Continue IV PPI q.12 hours Patient was also seen by Hematology and they recommend repeat bone marrow biopsy. Patient is on Procrit with dialysis Nursing staff also reported patient had some spotting suggestive of vaginal bleeding. Patient is not having. Was evaluated by ob gyn and this suspect that she has some spotting from her atrophic tissue due to low platelets. No further recommendations at this time Continue to hold aspirin Patient was discharged on Eliquis on her last hospitalization from [place] but since then patient has been admitted at outside hospital where it appears this was discontinued as I do not see her on halfway medication list. H&H remained stable post transfusion (5) Pancytopenia: Code(s): D61.818 - Other pancytopenia Status: Acute Assessment and Plan: Patient has chronic pancytopenia from her chemotherapy and multiple myeloma Monitor platelet count-patient received 2 units of platelets 11/16 Monitor WBC count hemoglobin and platelet count (6) Coagulopathy: Code(s): D68.9 - Coagulation defect, unspecified Status: Acute Assessment and Plan: Patient's INR is 15.3 and PTT is 115 Patient was discharged on Eliquis on her last hospitalization from [place] but since then patient has been admitted at outside hospital and appears that Eliquis was discontinued as I do not see on halfway medication list. She was given 2 units of FFP which has brought her INR acceptable range. She was also given 10 mg of vitamin K. INR normalized since then (7) Altered mental status: Code(s): R41.82 - Altered mental status, unspecified Status: Acute Assessment and Plan: Presented with altered mental status. This was likely delirium or metabolic encephalopathy Head CT is negative Normal ammonia Elevated TSH of 6.9. Check free T3 and free T4 ABG reviewed 7.53/42/102/34 This has since resolved (8) Sepsis: Code(s): A41.9 - Sepsis, unspecified organism Status: Acute Assessment and Plan: I reviewed the chart from [facility] and appears the patient had dialysis catheter related MSSA bacteremia and sepsis. She was discharged on cefazolin. Per amna
[2021-11-19 16:27] LABS: Hematocrit 24.5 % (37.0-47.0); Hemoglobin 8.5 g/dL (12.0-15.0); Immature Platelet Fraction Pct 6.6 % (0.9-11.2); Mean Corpuscular HGB Conc 34.7 g/dl (32-36); Mean Corpuscular Hemoglobin 30.9 pg (26-34); Mean Corpuscular Volume 89.1 fl (80-100); Mean Platelet Volume 10.6 fl (7.4-10.4); Platelet Count Result 59 k/mm3 (150-375); Red Blood Count 2.75 M/mm3 (4.2-5.4); Red Cell Distribution Width 15.9 % (11.5-14.5); White Blood Count 2.5 K/mm3 (4.5-10.0)
[2021-11-19] MEDS: DOCUSATE SODIUM 100 MG CAPSULE PO (16:45)
[2021-11-19] MEDS: CALCIUM ACETATE 667 MG TABLET 1334 MG PO (16:45)
[2021-11-19 17:07] LABS: Glucose Point of Care 181 mg/dl (65-105)
[2021-11-19 17:43] LABS: Pneumococcal Antigen Urine Not Detected (Not Detected)
[2021-11-19] MEDS: ONDANSETRON INJ 4 MG/2 ML VIAL IV PUSH (18:08)
[2021-11-19] MEDS: FLUTICASONE/SALMETEROL 115-21 MCG INHALER 1 PUFF 2 PUFF INHALATION (20:16)
[2021-11-19 20:36] LABS: Glucose Point of Care 176 mg/dl (65-105)
[2021-11-19] MEDS: CEFEPIME 0.5 GM in DEXTROSE 5% IN WATER 50 ML IVPB (21:42)
[2021-11-19] MEDS: LORazepam (*CRX) 1 MG TABLET PO (21:43)
[2021-11-19] MEDS: ATORVASTATIN 40 MG TABLET PO (21:43)
[2021-11-19] MEDS: SPIRONOLACTONE 50 MG TABLET PO (21:43)
[2021-11-20] VITALS (12 sets, daily range): BP systolic 130–185; BP diastolic 54–86; PULSE 88–96; RESP 14–21; TEMP 36.1–36.8; O2SAT 96–100
[2021-11-20 05:46] LABS: Hematocrit 23.2 % (37.0-47.0); Hemoglobin 7.4 g/dL (12.0-15.0); Immature Platelet Fraction Pct 7.6 % (0.9-11.2); Mean Corpuscular HGB Conc 31.9 g/dl (32-36); Mean Corpuscular Hemoglobin 30.7 pg (26-34); Mean Corpuscular Volume 96.3 fl (80-100); Mean Platelet Volume 11.3 fl (7.4-10.4); Platelet Count Result 50 k/mm3 (150-375); Red Blood Count 2.41 M/mm3 (4.2-5.4); Red Cell Distribution Width 16.4 % (11.5-14.5); White Blood Count 2.1 K/mm3 (4.5-10.0)
[2021-11-20 05:58] LABS: Alanine Aminotransferase 6 U/L (6-35); Albumin Level 3.1 g/dL (3.5-5.1); Alkaline Phosphatase 78 U/L (38-126); Anion Gap 10 mmol/L (8-16); Aspartate Amino Transferase 14 U/L (14-36); Bilirubin,Total 0.4 mg/dL (0.2-1.3); Blood Urea Nitrogen 21 mg/dL (7-17); Calcium 8.7 mg/dL (8.4-10.2); Carbon Dioxide 30 mmol/L (22-30); Chloride 95 mmol/L (98-107); Estimated CRCL calculation 13 ml/min; Estimated Glomerular Filt Rate 9; Glucose 128 mg/dL (65-110); Magnesium 1.9 mg/dL (1.6-2.3); Potassium 3.6 mmol/L (3.4-5.0); Sodium 135 mmol/L (137-145)
[2021-11-20] MEDS: CALCIUM ACETATE 667 MG TABLET 1334 MG PO ×3 (06:57→17:16)
[2021-11-20] MEDS: HYDROcodone/acetaminophen (*CRX) 5-325 MG TABLET 1 TAB PO ×2 (06:57→17:16)
[2021-11-20] MEDS: hydrALAZINE HCL 50 MG TABLET 100 MG PO ×3 (06:58→19:52)
[2021-11-20] MEDS: cloNIDine HCL 0.1 MG TABLET PO ×3 (06:58→19:51)
[2021-11-20 07:10] LABS: Band Neutrophils Percent 9 % (0-6); Basophils Absolute Manual 0.02 K/mm3 (0.0-0.1); Basophils Percent Manual 1 % (0-1); Lymphocytes Absolute Manual 0.73 K/mm3 (1.1-4.5); Metamyelocytes Percent 1 %; Monocytes Absolute Manual 0.12 K/mm3 (0.1-0.90); Monocytes Percent Manual 6 % (3-9); Neutrophils Absolute Manual 1.19 K/mm3 (1.7-7.2); Neutrophils Percent Manual 48 % (46-73); Platelet Estimate Decreased (Adequate); Total Cells Counted 100
[2021-11-20 07:16] LABS: Anisocytosis 1+ (NORMAL); Hypochromasia 2+ (NORMAL); Schistocytes 1+ (NORMAL)
--- NOTE | 2021-11-20 08:10 | PC.NURSE ---
Spoke with Cider Press Operator to verify which medications I can give before bone marrow biopsy. Reviewed medications with nurse, okay to give all.
[2021-11-20] MEDS: DOCUSATE SODIUM 100 MG CAPSULE PO ×2 (08:21→17:16)
[2021-11-20] MEDS: amLODIPine BESYLATE 5 MG TABLET 10 MG PO (08:21)
[2021-11-20] MEDS: FUROSEMIDE 80 MG TABLET PO (08:21)
[2021-11-20] MEDS: AMIODARONE HCL 200 MG TABLET PO (08:21)
[2021-11-20] MEDS: ISOSORBIDE MONONITRATE 60 MG TAB.ER.24H PO (08:21)
[2021-11-20] MEDS: VENLAFAXINE HCL XR 75 MG CAP.ER.24H PO (08:22)
[2021-11-20] MEDS: VANCOMYCIN ORAL 125 MG/2.5 ML SYRUP PO ×3 (08:22→17:16)
[2021-11-20] MEDS: METOPROLOL SUCCINATE EXT REL 100 MG TABCR PO ×2 (08:22→19:51)
[2021-11-20] MEDS: PANTOPRAZOLE SODIUM IV 40 MG VIAL IV PUSH ×2 (08:22→19:50)
[2021-11-20] MEDS: PRIMIDONE 125 MG TABLET PO ×2 (08:22→17:16)
[2021-11-20] MEDS: SPIRONOLACTONE 50 MG TABLET PO ×2 (08:22→17:16)
[2021-11-20 08:32] LABS: Glucose Point of Care 120 mg/dl (65-105)
[2021-11-20] MEDS: FLUTICASONE/SALMETEROL 115-21 MCG INHALER 1 PUFF 2 PUFF INHALATION ×2 (10:17→21:35)
[2021-11-20] MEDS: UMECLIDINIUM BROMIDE 62.5 MCG ELLIPTA 1 PUFF INHALATION (10:18)
--- NOTE | 2021-11-20 10:26 | P.PNNP_ITS ---
Progress Note: A&P Assessment and Plan (1) End stage renal disease: Code(s): N18.6 - End stage renal disease Status: Chronic Assessment and Plan: * HD tomorrow * continue M/W/F schedule for now * follow electrolytes, volume status, and clearance (2) Hypoxia: Code(s): R09.02 - Hypoxemia Status: Acute Assessment and Plan: * resolved -- off supplemental oxygen * admission CXR suggestive of pulmonary edema * CT chest confirms this * questionable pneumonia(?) * blood cultures negative * off antibiotics * continue ultrafiltration/fluid removal with HD as tolerated by hemodynamics * follow oxygenation and respiratory status (3) Chronic anemia: Code(s): D64.9 - Anemia, unspecified Status: Acute Assessment and Plan: * quit severe on presentation * s/p 4 units of PRBC transfusion to date * presumably secondary to multiple myeloma and ESRD * complicated by coagulopathy as well * PRBC transfusion per protocol * GI/Hematology/Ob-Knot Bumper recommendations noted * no intervention planned by GI * Ob-Knot Bumper suspects spotting due to atrophic tissues with manipulation and low platelets * Hem/Onc recommending repeat bone marrow biopsy (done 11/20/21) * follow trend of H/H (4) Pancytopenia: Code(s): D61.818 - Other pancytopenia Status: Acute Assessment and Plan: * likely due to chemotherapy and multiple myeloma * PRBC/platelet/FFP transfusion PRN * follow trend of CBC (5) Hypertension: Code(s): I10 - Essential (primary) hypertension Status: Chronic Assessment and Plan: * doing better * resumed on home medications * on PRN IV medications as well (6) Multiple myeloma: Code(s): C90.00 - Multiple myeloma not having achieved remission Status: Chronic Assessment and Plan: * on treatment with chemotherapy as an outpatient * Oncology following * chemotherapy on hold currently (7) Coagulopathy: Code(s): D68.9 - Coagulation defect, unspecified Status: Acute Assessment and Plan: * profoundly elevated on admission * better s/p FFP and Vitamin K * follow trend of INR (8) Altered mental status: Code(s): R41.82 - Altered mental status, unspecified Status: Acute Assessment and Plan: * cllinically better since admission * head CT negative * ammonia + TSH okay * follow mentation (9) Insulin dependent type 2 diabetes mellitus: Code(s): E11.9 - Type 2 diabetes mellitus without complications; Z79.4 - termite helper (current) use of insulin Status: Chronic Assessment and Plan: * follow accuchecks * glycemic control Will continue to follow. Subjective Date/time seen: 11/20/21 10:26 Tolerated hemodialysis treatment yesterday as well as bone marrow biopsy earlier this morning; no issues/events overnight or earlier this AM; diarrhea seems a bit better. Exam Narrative: General: WD/WN female in NAD Heart: normal S1 and S2; no rub Lungs: clear anteriorly; decreased at bases Abdomen: soft, nontender, nondistended, positive bowel sounds Extremities: no cyanosis or clubbing; trace edema Skin: warm and intact Objective Data Vital Signs Vital Signs: Vital Signs Temp Pulse Resp BP Pulse Ox O2 Del Method 11/20/21 10:18 96 Room Air
--- NOTE | 2021-11-20 10:26 | PM.PNNEP ---
Progress Note: A&P Assessment and Plan (1) End stage renal disease: Code(s): N18.6 - End stage renal disease Status: Chronic Assessment and Plan: HD tomorrow continue M/W/F schedule for now follow electrolytes, volume status, and clearance (2) Hypoxia: Code(s): R09.02 - Hypoxemia Status: Acute Assessment and Plan: resolved -- off supplemental oxygen admission CXR suggestive of pulmonary edema CT chest confirms this questionable pneumonia(?) blood cultures negative off antibiotics continue ultrafiltration/fluid removal with HD as tolerated by hemodynamics follow oxygenation and respiratory status (3) Chronic anemia: Code(s): D64.9 - Anemia, unspecified Status: Acute Assessment and Plan: quit severe on presentation s/p 4 units of PRBC transfusion to date presumably secondary to multiple myeloma and ESRD complicated by coagulopathy as well PRBC transfusion per protocol GI/Hematology/Ob-Multi Craft Maintenance Technician recommendations noted no intervention planned by GI Ob-Multi Craft Maintenance Technician suspects spotting due to atrophic tissues with manipulation and low platelets Hem/Onc recommending repeat bone marrow biopsy (done 11/20/21) follow trend of H/H (4) Pancytopenia: Code(s): D61.818 - Other pancytopenia Status: Acute Assessment and Plan: likely due to chemotherapy and multiple myeloma PRBC/platelet/FFP transfusion PRN follow trend of CBC (5) Hypertension: Code(s): I10 - Essential (primary) hypertension Status: Chronic Assessment and Plan: doing better resumed on home medications on PRN IV medications as well (6) Multiple myeloma: Code(s): C90.00 - Multiple myeloma not having achieved remission Status: Chronic Assessment and Plan: on treatment with chemotherapy as an outpatient Oncology following chemotherapy on hold currently (7) Coagulopathy: Code(s): D68.9 - Coagulation defect, unspecified Status: Acute Assessment and Plan: profoundly elevated on admission better s/p FFP and Vitamin K follow trend of INR (8) Altered mental status: Code(s): R41.82 - Altered mental status, unspecified Status: Acute Assessment and Plan: cllinically better since admission head CT negative ammonia + TSH okay follow mentation (9) Insulin dependent type 2 diabetes mellitus: Code(s): E11.9 - Type 2 diabetes mellitus without complications; Z79.4 - retirement (current) use of insulin Status: Chronic Assessment and Plan: follow accuchecks glycemic control Will continue to follow. Subjective Date/time seen: 11/20/21 10:26 Tolerated hemodialysis treatment yesterday as well as bone marrow biopsy earlier this morning; no issues/events overnight or earlier this AM; diarrhea seems a bit better. Exam Narrative: General: WD/WN female in NAD Heart: normal S1 and S2; no rub Lungs: clear anteriorly; decreased at bases Abdomen: soft, nontender, nondistended, positive bowel sounds Extremities: no cyanosis or clubbing; trace edema Skin: warm and intact Objective Data Vital Signs Vital Signs: Vital Signs Temp Pulse Resp BP Pulse Ox O2 Del Method 11/20/21 10:18 96 Room Air 11/20/21 10:14 36.1 C L 94 14 130/54 L 96 11/20/21 08:15 99 Room Air 11/20/21 08:22 94 11/20/21 08:21 94 11/20/21 08:00 36.4 C L 96 18 153/77 H 99 11/20/21 06:00 36.8 C 96 20 140/65 99 11/20/21 00:00 36.4 C 96 21 H 130/75 100 11/19/21 22:30 94 15 99 Autopap 11/19/21 20:00 94 21 H 100 Room Air 11/19/21 21:04 36.3 C L 94 21 H 144/65 H 100 11/19/21 20:23 98 Room Air 11/19/21 17:00 140/60 11/19/21 13:35 36.8 C 101 H 18 188/96 H 11/19/21 13:30 102 H 186/87 H 11/19/21 13:00 102 H 178/92 H 11/19/21 12:30 100 209/109 H 11/19/21 12:00 94 2
[2021-11-20 11:51] LABS: Glucose Point of Care 198 mg/dl (65-105)
[2021-11-20] MEDS: ACETAMINOPHEN 325 MG TABLET 650 MG PO (12:10)
--- NOTE | 2021-11-20 12:56 | PM.IMPN ---
Progress Note: A&P Assessment and Plan (1) ESRD (end stage renal disease) on dialysis: Code(s): N18.6 - End stage renal disease; Z99.2 - Dependence on renal dialysis Status: Acute Assessment and Plan: She has a right jugular tunnel catheter for hemodialysis. She she normally goes for dialysis on Friday Nephrology following for inpatient hemodialysis Labs reviewed electrolytes acceptable She recently line sepsis in previous dialysis catheter was removed replaced with this new 1. (2) Hypoxia: Code(s): R09.02 - Hypoxemia Status: Acute Assessment and Plan: CT chest noncontrast was done and confirmed the patient had mild pulmonary edema and does not appear to have a pneumonia Most likely pulmonary edema from ESRD On presentation Pneumonia was suspected and blood cultures, urine pneumococcal and Legionella antigen were sent Currently on empiric antibiotics vancomycin cefepime Her hypoxia has improved and she is now on room air. CT scan did not suggest any pneumonia She is off vancomycin continues on cefepime day 6/7. this will conclude tomorrow (3) Multiple myeloma: Code(s): C90.00 - Multiple myeloma not having achieved remission Status: Chronic Assessment and Plan: She is on chemotherapy with Velcade Oncology has been consulted and she may need repeat bone marrow biopsy to discharge Hold Velcade at this time discussed with Dr. Finch 11/19/2021 Bone marrow biopsy performed today 11/20/2021 (4) Chronic anemia: Code(s): D64.9 - Anemia, unspecified Status: Acute Assessment and Plan: Patient has chronic anemia with multiple etiologies the form of multiple myeloma, chronic kidney disease Presented with hemoglobin of 4 on admission. She has received 4 units of PRBC Her Hemoccult was negative. Patient evaluated by GI. No plan for intervention at this time. Continue IV PPI q.12 hours Patient was also seen by Hematology and they recommend repeat bone marrow biopsy. Patient is on Procrit with dialysis Nursing staff also reported patient had some spotting suggestive of vaginal bleeding. Patient is not having. Was evaluated by ob gyn and this suspect that she has some spotting from her atrophic tissue due to low platelets. No further recommendations at this time Continue to hold aspirin Patient was discharged on Eliquis on her last hospitalization from [place] but since then patient has been admitted at outside hospital where it appears this was discontinued as I do not see her on [facility] medication list. H&H remained stable post transfusion (5) Pancytopenia: Code(s): D61.818 - Other pancytopenia Status: Acute Assessment and Plan: Patient has chronic pancytopenia from her chemotherapy and multiple myeloma Monitor platelet count-patient received 2 units of platelets 11/16 Monitor WBC count hemoglobin and platelet count bone marrow biopsy performed 11/20/2021 (6) Coagulopathy: Code(s): D68.9 - Coagulation defect, unspecified Status: Acute Assessment and Plan: Patient's INR is 15.3 and PTT is 115 Patient was discharged on Eliquis on her last hospitalization from [place] but since then patient has been admitted at outside hospital and appears that Eliquis was discontinued as I do not see on [facility] medication list. She was given 2 units of FFP which has brought her INR acceptable range. She was also given 10 mg of vitamin K. INR normalized since then (7) Altered mental status: Code(s): R41.82 - Altered mental status, unspecified Status: Acute Assessment and Plan: Presented with altered mental status. This was likely delirium or metabolic encephalopathy Head CT is negative Normal ammonia Elevated TSH of 6.9. Check free T3 and free T4 ABG reviewed 7.53/42/102/34 This has since resolved (8) Sepsis: Code(s): A41.9 - Sepsis, unspecified organism Status: Acute Asse
--- NOTE | 2021-11-20 14:05 | PC.NURSE ---
Left message and call back number to Dr. Seals in attempts to clarify patient's fenofibrate dosing during stay.
--- NOTE | 2021-11-20 14:10 | PC.NURSE ---
called pharmacy to request 1400 clonidine, it is missing from drawer. will give when received
[2021-11-20 14:21] LABS: Haptoglobin 144 mg/dL (43-212)
[2021-11-20 15:21] LABS: Triiodothyronine T3 Free 2.1 pg/mL (2.3-4.2)
[2021-11-20 17:11] LABS: Glucose Point of Care 143 mg/dl (65-105)
[2021-11-20 19:21] LABS: Legionella pneumophila Ag Ur Not Detected (Not Detected)
[2021-11-20] MEDS: ATORVASTATIN 40 MG TABLET PO (19:50)
[2021-11-20] MEDS: diphenhydrAMINE HCl CAP 25 MG CAPSULE 50 MG PO (19:50)
[2021-11-20] MEDS: CEFEPIME 0.5 GM in DEXTROSE 5% IN WATER 50 ML IVPB (19:51)
[2021-11-20 20:05] LABS: Glucose Point of Care 146 mg/dl (65-105)
[2021-11-20] MEDS: ONDANSETRON INJ 4 MG/2 ML VIAL IV PUSH (20:43)
[2021-11-20] MEDS: LORazepam (*CRX) 1 MG TABLET PO (21:53)
[2021-11-21] VITALS (27 sets, daily range): BP systolic 121–182; BP diastolic 50–90; PULSE 88–96; RESP 16–21; TEMP 36.1–37; O2SAT 96–100
[2021-11-21] MEDS: ACETAMINOPHEN 325 MG TABLET 650 MG PO ×3 (00:35→23:50)
[2021-11-21] MEDS: HYDROcodone/acetaminophen (*CRX) 5-325 MG TABLET 1 TAB PO ×2 (04:11→15:08)
[2021-11-21] MEDS: hydrALAZINE HCL 50 MG TABLET 100 MG PO ×3 (04:12→19:52)
[2021-11-21] MEDS: cloNIDine HCL 0.1 MG TABLET PO ×3 (05:12→19:54)
[2021-11-21] MEDS: CALCIUM ACETATE 667 MG TABLET 1334 MG PO ×3 (05:12→17:28)
[2021-11-21 05:32] LABS: Basophils Percent Auto 0.9 % (0.2-1.2); Eosinophils Absolute Auto 0.1 K/mm3 (0-0.3); Eosinophils Percent Auto 2.7 % (0-4.4); Hematocrit 22.4 % (37.0-47.0); Hemoglobin 7.3 g/dL (12.0-15.0); Immature Granulocyte Absolute 0.24 K/mm3 (0.00-0.031); Immature Granulocyte Percent A 10.9 % (0-0.5); Lymphocytes Absolute Auto 0.71 K/mm3 (0.9-3.2); Lymphocytes Percent Auto 32.1 % (18.3-44.2); Mean Corpuscular HGB Conc 32.6 g/dl (32-36); Mean Corpuscular Hemoglobin 30.4 pg (26-34); Mean Corpuscular Volume 93.3 fl (80-100); Mean Platelet Volume 10.4 fl (7.4-10.4); Monocytes Absolute Auto 0.3 K/mm3 (0.1-0.6); Monocytes Percent Auto 11.8 % (2.6-8.5); Neutrophils Absolute Auto 0.9 K/mm3 (1.3-6.7); Neutrophils Percent Auto 41.6 % (45.5-73.1); Nucleated Red Blood Cells Absolute Auto 0.1 K/mm3 (0.0-0.012); Nucleated Red Blood Cells Perc 2.7 % (0.0-0.2); Platelet Count Result 41 k/mm3 (150-375); Red Cell Distribution Width 16.3 % (11.5-14.5); White Blood Count 2.2 K/mm3 (4.5-10.0)
[2021-11-21 05:37] LABS: Alanine Aminotransferase 6 U/L (6-35); Albumin Level 3.1 g/dL (3.5-5.1); Alkaline Phosphatase 78 U/L (38-126); Anion Gap 5 mmol/L (8-16); Aspartate Amino Transferase 14 U/L (14-36); Bilirubin,Total 0.5 mg/dL (0.2-1.3); Blood Urea Nitrogen 26 mg/dL (7-17); Calcium 8.8 mg/dL (8.4-10.2); Carbon Dioxide 30 mmol/L (22-30); Chloride 96 mmol/L (98-107); Estimated CRCL calculation 10 ml/min; Estimated Glomerular Filt Rate 7; Glucose 121 mg/dL (65-110); Magnesium 1.9 mg/dL (1.6-2.3); Sodium 131 mmol/L (137-145)
[2021-11-21 05:40] LABS: Albumin Level 3.1 g/dL (3.5-5.1); Anion Gap 8 mmol/L (8-16); Blood Urea Nitrogen 25 mg/dL (7-17); Calcium 8.8 mg/dL (8.4-10.2); Carbon Dioxide 31 mmol/L (22-30); Chloride 93 mmol/L (98-107); Estimated CRCL calculation 10 ml/min; Estimated Glomerular Filt Rate 7; Glucose 121 mg/dL (65-110); Phosphorus 3.1 mg/dL (2.5-4.5); Potassium 3.8 mmol/L (3.4-5.0); Sodium 132 mmol/L (137-145)
[2021-11-21 06:52] LABS: Platelet Estimate Decreased (Adequate)
[2021-11-21 06:53] LABS: Anisocytosis 2+ (NORMAL); Hypochromasia 1+ (NORMAL); Ovalocytes 1+ (NORMAL); Tear Drop Cells 1+ (NORMAL)
[2021-11-21 06:56] LABS: Schistocytes None Seen (NORMAL)
[2021-11-21 08:54] LABS: Glucose Point of Care 124 mg/dl (65-105)
[2021-11-21] MEDS: PRIMIDONE 125 MG TABLET PO ×2 (09:15→17:29)
[2021-11-21] MEDS: DOCUSATE SODIUM 100 MG CAPSULE PO ×2 (09:15→17:29)
[2021-11-21] MEDS: ISOSORBIDE MONONITRATE 60 MG TAB.ER.24H PO (09:16)
[2021-11-21] MEDS: SPIRONOLACTONE 50 MG TABLET PO ×2 (09:16→17:30)
[2021-11-21] MEDS: METOPROLOL SUCCINATE EXT REL 100 MG TABCR PO ×2 (09:16→19:52)
[2021-11-21] MEDS: VENLAFAXINE HCL XR 75 MG CAP.ER.24H PO (09:16)
[2021-11-21] MEDS: AMIODARONE HCL 200 MG TABLET PO (09:17)
[2021-11-21] MEDS: PANTOPRAZOLE SODIUM IV 40 MG VIAL IV PUSH ×2 (09:18→19:52)
[2021-11-21] MEDS: amLODIPine BESYLATE 5 MG TABLET 10 MG PO (09:18)
[2021-11-21] MEDS: UMECLIDINIUM BROMIDE 62.5 MCG ELLIPTA 1 PUFF INHALATION (09:27)
[2021-11-21] MEDS: VANCOMYCIN ORAL 125 MG/2.5 ML SYRUP PO ×2 (09:28→15:10)
[2021-11-21] MEDS: FLUTICASONE/SALMETEROL 115-21 MCG INHALER 1 PUFF 2 PUFF INHALATION ×2 (09:28→20:10)
--- NOTE | 2021-11-21 11:50 | P.PNNP_ITS ---
Progress Note: A&P Assessment and Plan (1) End stage renal disease: Code(s): N18.6 - End stage renal disease Status: Chronic Assessment and Plan: * HD today * continue M/W/F schedule for now * follow electrolytes, volume status, and clearance (2) Hypoxia: Code(s): R09.02 - Hypoxemia Status: Acute Assessment and Plan: * resolved -- off supplemental oxygen * admission CXR suggestive of pulmonary edema * CT chest confirms this * questionable pneumonia(?) * blood cultures negative * off antibiotics * continue ultrafiltration/fluid removal with HD as tolerated by hemodynamics * follow oxygenation and respiratory status (3) Chronic anemia: Code(s): D64.9 - Anemia, unspecified Status: Acute Assessment and Plan: * quit severe on presentation * s/p 4 units of PRBC transfusion to date * presumably secondary to multiple myeloma and ESRD * complicated by coagulopathy as well * PRBC transfusion per protocol * GI/Hematology/Ob-Meter Reader recommendations noted * no intervention planned by GI * Ob-Meter Reader suspects spotting due to atrophic tissues with manipulation and low platelets * Hem/Onc recommending repeat bone marrow biopsy (done 11/20/21) * follow trend of H/H (4) Pancytopenia: Code(s): D61.818 - Other pancytopenia Status: Acute Assessment and Plan: * likely due to chemotherapy and multiple myeloma * PRBC/platelet/FFP transfusion PRN * follow trend of CBC (5) Hypertension: Code(s): I10 - Essential (primary) hypertension Status: Chronic Assessment and Plan: * doing better * resumed on home medications * on PRN IV medications as well (6) Multiple myeloma: Code(s): C90.00 - Multiple myeloma not having achieved remission Status: Chronic Assessment and Plan: * on treatment with chemotherapy as an outpatient * Oncology following * chemotherapy on hold currently (7) Coagulopathy: Code(s): D68.9 - Coagulation defect, unspecified Status: Acute Assessment and Plan: * profoundly elevated on admission * better s/p FFP and Vitamin K * follow trend of INR (8) Altered mental status: Code(s): R41.82 - Altered mental status, unspecified Status: Acute Assessment and Plan: * cllinically better since admission * head CT negative * ammonia + TSH okay * follow mentation (9) Insulin dependent type 2 diabetes mellitus: Code(s): E11.9 - Type 2 diabetes mellitus without complications; Z79.4 - [facility] (current) use of insulin Status: Chronic Assessment and Plan: * follow accuchecks * glycemic control Will continue to follow. Subjective Date/time seen: 11/21/21 11:50 Tolerating dialysis at the time of my visit (seen on HD at 11:40AM); no acute distress voiced at this time; major complaint is that of insomnia with Benadryl and melatonin not helping at all; otherwise, no other acute complaints voiced; tolerated bone marrow biopsy yesterday AM. Exam Narrative: General: WD/WN female in NAD Heart: normal S1 and S2; no rub Lungs: clear anteriorly; decreased at bases Abdomen: soft, nontender, nondistended, positive bowel sounds Extremities: no cyanosis or clubbing; trace edema Skin: warm and intact Objective Data Vital Signs Vital Signs: Vital Signs
--- NOTE | 2021-11-21 11:50 | PM.PNNEP ---
Progress Note: A&P Assessment and Plan (1) End stage renal disease: Code(s): N18.6 - End stage renal disease Status: Chronic Assessment and Plan: HD today continue M/W/F schedule for now follow electrolytes, volume status, and clearance (2) Hypoxia: Code(s): R09.02 - Hypoxemia Status: Acute Assessment and Plan: resolved -- off supplemental oxygen admission CXR suggestive of pulmonary edema CT chest confirms this questionable pneumonia(?) blood cultures negative off antibiotics continue ultrafiltration/fluid removal with HD as tolerated by hemodynamics follow oxygenation and respiratory status (3) Chronic anemia: Code(s): D64.9 - Anemia, unspecified Status: Acute Assessment and Plan: quit severe on presentation s/p 4 units of PRBC transfusion to date presumably secondary to multiple myeloma and ESRD complicated by coagulopathy as well PRBC transfusion per protocol GI/Hematology/Ob-Cutter Grinder recommendations noted no intervention planned by GI Ob-Cutter Grinder suspects spotting due to atrophic tissues with manipulation and low platelets Hem/Onc recommending repeat bone marrow biopsy (done 11/20/21) follow trend of H/H (4) Pancytopenia: Code(s): D61.818 - Other pancytopenia Status: Acute Assessment and Plan: likely due to chemotherapy and multiple myeloma PRBC/platelet/FFP transfusion PRN follow trend of CBC (5) Hypertension: Code(s): I10 - Essential (primary) hypertension Status: Chronic Assessment and Plan: doing better resumed on home medications on PRN IV medications as well (6) Multiple myeloma: Code(s): C90.00 - Multiple myeloma not having achieved remission Status: Chronic Assessment and Plan: on treatment with chemotherapy as an outpatient Oncology following chemotherapy on hold currently (7) Coagulopathy: Code(s): D68.9 - Coagulation defect, unspecified Status: Acute Assessment and Plan: profoundly elevated on admission better s/p FFP and Vitamin K follow trend of INR (8) Altered mental status: Code(s): R41.82 - Altered mental status, unspecified Status: Acute Assessment and Plan: cllinically better since admission head CT negative ammonia + TSH okay follow mentation (9) Insulin dependent type 2 diabetes mellitus: Code(s): E11.9 - Type 2 diabetes mellitus without complications; Z79.4 - halfway (current) use of insulin Status: Chronic Assessment and Plan: follow accuchecks glycemic control Will continue to follow. Subjective Date/time seen: 11/21/21 11:50 Tolerating dialysis at the time of my visit (seen on HD at 11:40AM); no acute distress voiced at this time; major complaint is that of insomnia with Benadryl and melatonin not helping at all; otherwise, no other acute complaints voiced; tolerated bone marrow biopsy yesterday AM. Exam Narrative: General: WD/WN female in NAD Heart: normal S1 and S2; no rub Lungs: clear anteriorly; decreased at bases Abdomen: soft, nontender, nondistended, positive bowel sounds Extremities: no cyanosis or clubbing; trace edema Skin: warm and intact Objective Data Vital Signs Vital Signs: Vital Signs Temp Pulse Resp BP Pulse Ox O2 Del Method 11/21/21 09:17 96 11/21/21 09:16 96 11/21/21 05:00 36.5 C 88 21 H 154/75 H 100 11/21/21 00:41 36.6 C 89 20 125/50 L 99 11/20/21 20:00 Room Air 11/20/21 20:28 36.7 C 91 21 H 185/86 H 100 11/20/21 19:51 91 11/20/21 14:17 88 11/20/21 12:00 36.4 C 94 20 133/54 L 99 Intake/Output Intake/Output: Intake & Output 11/18/21 11/19/21 11/20/21 11/21/21 23:59 23:59 23:59 23:59 Intake Total 780 1240 1969 940 Output Total 200 3800 Balance 580 -2560 1969 940 Meds/Results Medications: Active Medications Gen
[2021-11-21 14:49] LABS: Glucose Point of Care 111 mg/dl (65-105)
--- NOTE | 2021-11-21 15:36 | PM.IMPN ---
Progress Note: A&P Assessment and Plan (1) ESRD (end stage renal disease) on dialysis: Code(s): N18.6 - End stage renal disease; Z99.2 - Dependence on renal dialysis Status: Acute Assessment and Plan: She has a right jugular tunnel catheter for hemodialysis. She she normally goes for dialysis on Friday Nephrology following for inpatient hemodialysis (2) Hypoxia: Code(s): R09.02 - Hypoxemia Status: Acute Assessment and Plan: CT chest noncontrast was done and confirmed the patient had mild pulmonary edema and does not appear to have a pneumonia Most likely pulmonary edema from ESRD On presentation Pneumonia was suspected and blood cultures, urine pneumococcal and Legionella antigen were sent Currently on empiric antibiotics vancomycin cefepime Her hypoxia has improved and she is now on room air. CT scan did not suggest any pneumonia Completed 7 day course of cefepime November 21, 2021 (3) Multiple myeloma: Code(s): C90.00 - Multiple myeloma not having achieved remission Status: Chronic Assessment and Plan: She is on chemotherapy with Velcade Oncology has been consulted and she may need repeat bone marrow biopsy to discharge Hold Velcade at this time Discussed with Dr. Finch 11/19/2021 Bone marrow biopsy performed today 11/20/2021 (4) Chronic anemia: Code(s): D64.9 - Anemia, unspecified Status: Acute Assessment and Plan: Patient has chronic anemia with multiple etiologies the form of multiple myeloma, chronic kidney disease Presented with hemoglobin of 4 on admission. She has received 4 units of PRBC Her Hemoccult was negative. Patient evaluated by GI. No plan for intervention at this time. Continue IV PPI q.12 hours Patient was also seen by Hematology and they recommend repeat bone marrow biopsy. Patient is on Procrit with dialysis Nursing staff also reported patient had some spotting suggestive of vaginal bleeding. Patient is not having. Was evaluated by die maintenance technician and this suspect that she has some spotting from her atrophic tissue due to low platelets. No further recommendations at this time Continue to hold aspirin Patient was discharged on Eliquis on her last hospitalization from [place] but since then patient has been admitted at outside hospital where it appears this was discontinued as I do not see her on shelter medication list. H&H remained stable post transfusion (5) Pancytopenia: Code(s): D61.818 - Other pancytopenia Status: Acute Assessment and Plan: Patient has chronic pancytopenia from her chemotherapy and multiple myeloma Monitor platelet count-patient received 2 units of platelets 11/16 Monitor WBC count hemoglobin and platelet count Bone marrow biopsy performed 11/20/2021 (6) Coagulopathy: Code(s): D68.9 - Coagulation defect, unspecified Status: Acute Assessment and Plan: Patient's INR is 15.3 and PTT is 115 Patient was discharged on Eliquis on her last hospitalization from [place] but since then patient has been admitted at outside hospital and appears that Eliquis was discontinued as I do not see on shelter medication list. She was given 2 units of FFP which has brought her INR acceptable range. She was also given 10 mg of vitamin K. INR normalized since then (7) Altered mental status: Code(s): R41.82 - Altered mental status, unspecified Status: Acute Assessment and Plan: Presented with altered mental status. This was likely delirium or metabolic encephalopathy Head CT is negative Normal ammonia Elevated TSH of 6.9. Check free T3 and free T4 ABG reviewed 7.53/42/102/34 This has since resolved (8) Sepsis: Code(s): A41.9 - Sepsis, unspecified organism Status: Acute Assessment and Plan: I reviewed the chart from [facility] and appears the patient had dialysis catheter related MSSA bacteremia and sepsis. She was dischar
[2021-11-21 17:07] LABS: Glucose Point of Care 185 mg/dl (65-105)
[2021-11-21] MEDS: TEMAZEPAM (*CRX) 7.5 MG CAPSULE PO (19:52)
[2021-11-21] MEDS: ATORVASTATIN 40 MG TABLET PO (19:52)
[2021-11-21] MEDS: MELATONIN 5 MG TABLET PO (19:52)
[2021-11-21] MEDS: ONDANSETRON INJ 4 MG/2 ML VIAL IV PUSH (19:58)
[2021-11-21 19:59] LABS: Glucose Point of Care 142 mg/dl (65-105)
[2021-11-21] MEDS: diphenhydrAMINE HCl CAP 25 MG CAPSULE 50 MG PO (23:50)
[2021-11-22] VITALS (9 sets, daily range): BP systolic 136–176; BP diastolic 63–79; PULSE 74–93; RESP 16–20; TEMP 36.1–36.6; O2SAT 97–99; BMI 34.2
[2021-11-22] MEDS: CALCIUM ACETATE 667 MG TABLET 1334 MG PO ×3 (04:22→16:33)
[2021-11-22] MEDS: cloNIDine HCL 0.1 MG TABLET PO ×2 (04:22→14:09)
[2021-11-22] MEDS: hydrALAZINE HCL 50 MG TABLET 100 MG PO ×3 (04:22→19:54)
[2021-11-22 06:08] LABS: Hematocrit 24.2 % (37.0-47.0); Hemoglobin 7.6 g/dL (12.0-15.0); Immature Platelet Fraction Pct 10.7 % (0.9-11.2); Mean Corpuscular HGB Conc 31.4 g/dl (32-36); Mean Corpuscular Hemoglobin 30.5 pg (26-34); Mean Corpuscular Volume 97.2 fl (80-100); Platelet Count Result 48 k/mm3 (150-375); Red Blood Count 2.49 M/mm3 (4.2-5.4); Red Cell Distribution Width 16.2 % (11.5-14.5); White Blood Count 2.3 K/mm3 (4.5-10.0)
[2021-11-22 06:23] LABS: Alanine Aminotransferase 6 U/L (6-35); Albumin Level 3.2 g/dL (3.5-5.1); Alkaline Phosphatase 81 U/L (38-126); Anion Gap 7 mmol/L (8-16); Aspartate Amino Transferase 13 U/L (14-36); Bilirubin,Total 0.4 mg/dL (0.2-1.3); Blood Urea Nitrogen 14 mg/dL (7-17); Calcium 9.3 mg/dL (8.4-10.2); Carbon Dioxide 28 mmol/L (22-30); Chloride 98 mmol/L (98-107); Estimated CRCL calculation 13 ml/min; Estimated Glomerular Filt Rate 11; Glucose 124 mg/dL (65-110); Phosphorus 2.7 mg/dL (2.5-4.5); Potassium 4.1 mmol/L (3.4-5.0); Sodium 133 mmol/L (137-145)
[2021-11-22 06:39] LABS: Band Neutrophils Percent 5 % (0-6); Basophils Absolute Manual 0.04 K/mm3 (0.0-0.1); Basophils Percent Manual 2 % (0-1); Eosinophils Absolute Manual 0.02 K/mm3 (0.02-0.5); Eosinophils Percent Manual 1 % (0-4); Lymphocytes Absolute Manual 0.82 K/mm3 (1.1-4.5); Monocytes Absolute Manual 0.18 K/mm3 (0.1-0.90); Monocytes Percent Manual 8 % (3-9); Neutrophils Absolute Manual 1.21 K/mm3 (1.7-7.2); Neutrophils Percent Manual 48 % (46-73); Nucleated Red Blood Cells 5 %; Total Cells Counted 100
[2021-11-22 06:40] LABS: Macrocytosis 1+ (NORMAL); Platelet Estimate Decreased (Adequate); Schistocytes None Seen (NORMAL)
[2021-11-22 06:41] LABS: Anisocytosis 1+ (NORMAL); Polychromasia 1+ (NORMAL)
--- NOTE | 2021-11-22 08:23 | PM.DS ---
DS: Discharge Diagnosis Discharge Diagnosis (1) ESRD (end stage renal disease) on dialysis: Code(s): N18.6 - End stage renal disease; Z99.2 - Dependence on renal dialysis Status: Acute Assessment and Plan: She has a right jugular tunnel catheter for hemodialysis. She she normally goes for dialysis on Friday Nephrology following for inpatient hemodialysis (2) Hypoxia: Code(s): R09.02 - Hypoxemia Status: Acute Assessment and Plan: CT chest noncontrast was done and confirmed the patient had mild pulmonary edema and does not appear to have a pneumonia Most likely pulmonary edema from ESRD On presentation Pneumonia was suspected and blood cultures, urine pneumococcal and Legionella antigen were sent Currently on empiric antibiotics vancomycin cefepime Her hypoxia has improved and she is now on room air. CT scan did not suggest any pneumonia Completed 7 day course of cefepime November 21, 2021 (3) Multiple myeloma: Code(s): C90.00 - Multiple myeloma not having achieved remission Status: Chronic Assessment and Plan: She is on chemotherapy with Velcade Oncology has been consulted and she may need repeat bone marrow biopsy to discharge Hold Velcade at this time Discussed with Dr. Finch 11/19/2021 Bone marrow biopsy performed today 11/20/2021 (4) Chronic anemia: Code(s): D64.9 - Anemia, unspecified Status: Acute Assessment and Plan: Patient has chronic anemia with multiple etiologies the form of multiple myeloma, chronic kidney disease Presented with hemoglobin of 4 on admission. She has received 4 units of PRBC Her Hemoccult was negative. Patient evaluated by GI. No plan for intervention at this time. Continue IV PPI q.12 hours Patient was also seen by Hematology and they recommend repeat bone marrow biopsy. Patient is on Procrit with dialysis Nursing staff also reported patient had some spotting suggestive of vaginal bleeding. Patient is not having. Was evaluated by driller brake lining and this suspect that she has some spotting from her atrophic tissue due to low platelets. No further recommendations at this time Continue to hold aspirin Patient was discharged on Eliquis on her last hospitalization from [place] but since then patient has been admitted at outside hospital where it appears this was discontinued as I do not see her on senior care medication list. H&H remained stable post transfusion (5) Pancytopenia: Code(s): D61.818 - Other pancytopenia Status: Acute Assessment and Plan: Patient has chronic pancytopenia from her chemotherapy and multiple myeloma Monitor platelet count-patient received 2 units of platelets 11/16 Monitor WBC count hemoglobin and platelet count Bone marrow biopsy performed 11/20/2021 (6) Coagulopathy: Code(s): D68.9 - Coagulation defect, unspecified Status: Acute Assessment and Plan: Patient's INR is 15.3 and PTT is 115 Patient was discharged on Eliquis on her last hospitalization from [place] but since then patient has been admitted at outside hospital and appears that Eliquis was discontinued as I do not see on senior care medication list. She was given 2 units of FFP which has brought her INR acceptable range. She was also given 10 mg of vitamin K. INR normalized since then (7) Altered mental status: Code(s): R41.82 - Altered mental status, unspecified Status: Acute Assessment and Plan: Presented with altered mental status. This was likely delirium or metabolic encephalopathy Head CT is negative Normal ammonia Elevated TSH of 6.9. Check free T3 and free T4 ABG reviewed 7.53/42/102/34 This has since resolved (8) Sepsis: Code(s): A41.9 - Sepsis, unspecified organism Status: Acute Assessment and Plan: I reviewed the chart from [facility] and appears the patient had dialysis catheter related MSSA bacteremia and sepsis. She was di
[2021-11-22] MEDS: FLUTICASONE/SALMETEROL 115-21 MCG INHALER 1 PUFF 2 PUFF INHALATION ×2 (08:50→20:57)
[2021-11-22] MEDS: UMECLIDINIUM BROMIDE 62.5 MCG ELLIPTA 1 PUFF INHALATION (08:51)
[2021-11-22 08:53] LABS: Glucose Point of Care 133 mg/dl (65-105)
[2021-11-22] MEDS: ACETAMINOPHEN 325 MG TABLET 650 MG PO (09:02)
[2021-11-22] MEDS: ISOSORBIDE MONONITRATE 60 MG TAB.ER.24H PO (09:03)
[2021-11-22] MEDS: AMIODARONE HCL 200 MG TABLET PO (09:03)
[2021-11-22] MEDS: SPIRONOLACTONE 50 MG TABLET PO ×2 (09:03→16:34)
[2021-11-22] MEDS: FUROSEMIDE 80 MG TABLET PO (09:05)
[2021-11-22] MEDS: amLODIPine BESYLATE 5 MG TABLET 10 MG PO (09:05)
[2021-11-22] MEDS: DOCUSATE SODIUM 100 MG CAPSULE PO ×2 (09:06→16:33)
[2021-11-22] MEDS: PRIMIDONE 125 MG TABLET PO ×2 (09:06→16:34)
[2021-11-22] MEDS: PANTOPRAZOLE SODIUM IV 40 MG VIAL IV PUSH ×2 (09:06→19:53)
[2021-11-22] MEDS: VENLAFAXINE HCL XR 75 MG CAP.ER.24H PO (09:06)
[2021-11-22] MEDS: METOPROLOL SUCCINATE EXT REL 100 MG TABCR PO ×2 (09:06→19:54)
[2021-11-22 12:27] LABS: Glucose Point of Care 164 mg/dl (65-105)
[2021-11-22] MEDS: ONDANSETRON INJ 4 MG/2 ML VIAL IV PUSH ×2 (12:38→18:38)
--- NOTE | 2021-11-22 13:30 | P.PNNP_ITS ---
Progress Note: A&P Assessment and Plan (1) End stage renal disease: Code(s): N18.6 - End stage renal disease Status: Chronic Assessment and Plan: * HD tomorrow * continue M/W/F schedule for now * follow electrolytes, volume status, and clearance (2) Hypoxia: Code(s): R09.02 - Hypoxemia Status: Acute Assessment and Plan: * resolved -- off supplemental oxygen * admission CXR suggestive of pulmonary edema * CT chest confirms this * questionable pneumonia(?) * blood cultures negative * off antibiotics * continue ultrafiltration/fluid removal with HD as tolerated by hemodynamics * follow oxygenation and respiratory status (3) Chronic anemia: Code(s): D64.9 - Anemia, unspecified Status: Acute Assessment and Plan: * quite severe on presentation * s/p 4 units of PRBC transfusion to date * presumably secondary to multiple myeloma and ESRD * complicated by coagulopathy as well * PRBC transfusion per protocol * GI/Hematology/Ob-Special Service Officer recommendations noted * no intervention planned by GI * Ob-Special Service Officer suspects spotting due to atrophic tissues with manipulation and low platelets * Hem/Onc recommending repeat bone marrow biopsy (done 11/20/21) * follow trend of H/H (4) Pancytopenia: Code(s): D61.818 - Other pancytopenia Status: Acute Assessment and Plan: * likely due to chemotherapy and multiple myeloma * PRBC/platelet/FFP transfusion PRN * follow trend of CBC (5) Hypertension: Code(s): I10 - Essential (primary) hypertension Status: Chronic Assessment and Plan: * doing better * resumed on home medications * on PRN IV medications as well (6) Multiple myeloma: Code(s): C90.00 - Multiple myeloma not having achieved remission Status: Chronic Assessment and Plan: * on treatment with chemotherapy as an outpatient * Oncology following * chemotherapy on hold currently (7) Coagulopathy: Code(s): D68.9 - Coagulation defect, unspecified Status: Acute Assessment and Plan: * profoundly elevated on admission * better s/p FFP and Vitamin K * follow trend of INR (8) Altered mental status: Code(s): R41.82 - Altered mental status, unspecified Status: Acute Assessment and Plan: * cllinically better since admission * head CT negative * ammonia + TSH okay * follow mentation (9) Insulin dependent type 2 diabetes mellitus: Code(s): E11.9 - Type 2 diabetes mellitus without complications; Z79.4 - terminal carman (current) use of insulin Status: Chronic Assessment and Plan: * follow accuchecks * glycemic control Will continue to follow. Subjective Date/time seen: 11/22/21 13:30 Tolerated dialysis yesterday without any issues or problems; she states slept significantly better last night with the use of Restoril (Benadryl and melatonin were not helping); major complaint is that of profound weakness/fatigue; no other events overnight or earlier his morning. Exam Narrative: General: WD/WN female in NAD Heart: normal S1 and S2; no rub Lungs: clear anteriorly; decreased at bases Abdomen: soft, nontender, nondistended, positive bowel sounds Extremities: no cyanosis or clubbing; trace edema Skin: no rash Objective Data Vital Signs Vital Signs: Vital Signs
--- NOTE | 2021-11-22 13:30 | PM.PNNEP ---
Progress Note: A&P Assessment and Plan (1) End stage renal disease: Code(s): N18.6 - End stage renal disease Status: Chronic Assessment and Plan: HD tomorrow continue M/W/F schedule for now follow electrolytes, volume status, and clearance (2) Hypoxia: Code(s): R09.02 - Hypoxemia Status: Acute Assessment and Plan: resolved -- off supplemental oxygen admission CXR suggestive of pulmonary edema CT chest confirms this questionable pneumonia(?) blood cultures negative off antibiotics continue ultrafiltration/fluid removal with HD as tolerated by hemodynamics follow oxygenation and respiratory status (3) Chronic anemia: Code(s): D64.9 - Anemia, unspecified Status: Acute Assessment and Plan: quite severe on presentation s/p 4 units of PRBC transfusion to date presumably secondary to multiple myeloma and ESRD complicated by coagulopathy as well PRBC transfusion per protocol GI/Hematology/Ob-Marble Cleaner recommendations noted no intervention planned by GI Ob-Marble Cleaner suspects spotting due to atrophic tissues with manipulation and low platelets Hem/Onc recommending repeat bone marrow biopsy (done 11/20/21) follow trend of H/H (4) Pancytopenia: Code(s): D61.818 - Other pancytopenia Status: Acute Assessment and Plan: likely due to chemotherapy and multiple myeloma PRBC/platelet/FFP transfusion PRN follow trend of CBC (5) Hypertension: Code(s): I10 - Essential (primary) hypertension Status: Chronic Assessment and Plan: doing better resumed on home medications on PRN IV medications as well (6) Multiple myeloma: Code(s): C90.00 - Multiple myeloma not having achieved remission Status: Chronic Assessment and Plan: on treatment with chemotherapy as an outpatient Oncology following chemotherapy on hold currently (7) Coagulopathy: Code(s): D68.9 - Coagulation defect, unspecified Status: Acute Assessment and Plan: profoundly elevated on admission better s/p FFP and Vitamin K follow trend of INR (8) Altered mental status: Code(s): R41.82 - Altered mental status, unspecified Status: Acute Assessment and Plan: cllinically better since admission head CT negative ammonia + TSH okay follow mentation (9) Insulin dependent type 2 diabetes mellitus: Code(s): E11.9 - Type 2 diabetes mellitus without complications; 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 Subjective Date/time seen: 11/22/21 13:30 Tolerated dialysis yesterday without any issues or problems; she states slept significantly better last night with the use of Restoril (Benadryl and melatonin were not helping); major complaint is that of profound weakness/fatigue; no other events overnight or earlier his morning. Exam Narrative: General: WD/WN female in NAD Heart: normal S1 and S2; no rub Lungs: clear anteriorly; decreased at bases Abdomen: soft, nontender, nondistended, positive bowel sounds Extremities: no cyanosis or clubbing; trace edema Skin: no rash Objective Data Vital Signs Vital Signs: Vital Signs Temp Pulse Resp BP Pulse Ox O2 Del Method 11/22/21 10:46 36.6 C 74 16 176/79 H 99 11/22/21 09:00 Room Air 11/22/21 09:06 93 11/22/21 09:03 93 11/22/21 04:00 36.2 C L 90 20 155/79 H 99 11/22/21 00:00 36.4 C 90 18 136/74 97 11/21/21 20:00 Room Air 11/21/21 20:00 37.0 C 93 16 148/73 H 98 11/21/21 20:12 96 Room Air 11/21/21 19:52 89 Intake/Output Intake/Output: Intake & Output 11/19/21 11/20/21 11/21/21 11/22/21 23:59 23:59 23:59 23:59 Intake Total 1240 1970 1290 684 Output Total 3800 4400 Balance -2560 1969 -3110 684 Meds/Results Med
--- NOTE | 2021-11-22 13:53 | PCNSR ---
On 11/22/21, the student, Bud Mistry, provided care and completed [facility] on [facility]. I have reviewed the student's documentation and agree with the findings.
[2021-11-22] MEDS: HYDROcodone/acetaminophen (*CRX) 5-325 MG TABLET 1 TAB PO (14:16)
--- NOTE | 2021-11-22 15:18 | PM.IMPN ---
Progress Note: A&P Assessment and Plan (1) ESRD (end stage renal disease) on dialysis: Code(s): N18.6 - End stage renal disease; Z99.2 - Dependence on renal dialysis Status: Acute Assessment and Plan: She has a right jugular tunnel catheter for hemodialysis. She goes for dialysis on Friday Nephrology following for inpatient hemodialysis (2) Hypoxia: Code(s): R09.02 - Hypoxemia Status: Acute Assessment and Plan: CT chest noncontrast was done and confirmed the patient had mild pulmonary edema and does not appear to have a pneumonia Most likely pulmonary edema from ESRD On presentation Pneumonia was suspected and blood cultures, urine pneumococcal and Legionella antigen were sent Currently on empiric antibiotics vancomycin cefepime Her hypoxia has improved and she is now on room air. CT scan did not suggest any pneumonia Completed 7 day course of cefepime November 21, 2021 (3) Multiple myeloma: Code(s): C90.00 - Multiple myeloma not having achieved remission Status: Chronic Assessment and Plan: She is on chemotherapy with Velcade Hold Velcade at this time Discussed with Dr. Finch 11/19/2021 Bone marrow biopsy performed 11/20/2021 (4) Chronic anemia: Code(s): D64.9 - Anemia, unspecified Status: Acute Assessment and Plan: Patient has chronic anemia with multiple etiologies the form of multiple myeloma, chronic kidney disease Presented with hemoglobin of 4 on admission. She has received 4 units of PRBC Her Hemoccult was negative. Patient evaluated by GI. No plan for intervention at this time. Continue IV PPI q.12 hours Patient was also seen by Hematology and they recommend repeat bone marrow biopsy. Patient is on Procrit with dialysis Nursing staff also reported patient had some spotting suggestive of vaginal bleeding. Patient is not having. Was evaluated by retail store associate and this suspect that she has some spotting from her atrophic tissue due to low platelets. No further recommendations at this time Continue to hold aspirin Patient was discharged on Eliquis on her last hospitalization from [facility] but since then patient has been admitted at outside hospital where it appears this was discontinued as I do not see her on penitentiary medication list. H&H remained stable post transfusion (5) Pancytopenia: Code(s): D61.818 - Other pancytopenia Status: Acute Assessment and Plan: Patient has chronic pancytopenia from her chemotherapy and multiple myeloma Monitor platelet count-patient received 2 units of platelets 11/16 Monitor WBC count hemoglobin and platelet count Bone marrow biopsy performed 11/20/2021 (6) Coagulopathy: Code(s): D68.9 - Coagulation defect, unspecified Status: Acute Assessment and Plan: Patient's INR is 15.3 and PTT is 115 Patient was discharged on Eliquis on her last hospitalization from [facility] but since then patient has been admitted at outside hospital and appears that Eliquis was discontinued as I do not see on penitentiary medication list. She was given 2 units of FFP which has brought her INR acceptable range. She was also given 10 mg of vitamin K. INR normalized since then (7) Altered mental status: Code(s): R41.82 - Altered mental status, unspecified Status: Acute Assessment and Plan: Presented with altered mental status. This was likely delirium or metabolic encephalopathy Head CT is negative Normal ammonia Elevated TSH of 6.9. Check free T3 and free T4 ABG reviewed 7.53/42/102/34 This has since resolved (8) Sepsis: Code(s): A41.9 - Sepsis, unspecified organism Status: Acute Assessment and Plan: I reviewed the chart from [facility] and appears the patient had dialysis catheter related MSSA bacteremia and sepsis. She was discharged on cefazolin. Per patient's niece, at [facility], patient had her dialysis catheter re
[2021-11-22] MEDS: FIDAXOMICIN 200 MG TABLET PO ×2 (16:33→19:54)
[2021-11-22 17:27] LABS: Glucose Point of Care 138 mg/dl (65-105)
[2021-11-22] MEDS: cloNIDine 0.1 MG/24 HR PATCH 1 PATCH TRANSDERM (19:52)
[2021-11-22] MEDS: diphenhydrAMINE HCl CAP 25 MG CAPSULE PO (19:54)
[2021-11-22] MEDS: ATORVASTATIN 40 MG TABLET PO (19:54)
[2021-11-22] MEDS: TEMAZEPAM (*CRX) 7.5 MG CAPSULE PO (19:54)
[2021-11-22] MEDS: MELATONIN 5 MG TABLET PO (19:54)
[2021-11-22 20:09] LABS: Glucose Point of Care 165 mg/dl (65-105)
[2021-11-23] VITALS (15 sets, daily range): BP systolic 114–186; BP diastolic 64–100; PULSE 71–98; RESP 16–21; TEMP 36–36.6; O2SAT 99–100
[2021-11-23] MEDS: hydrALAZINE HCL 50 MG TABLET 100 MG PO ×2 (04:29→11:40)
[2021-11-23] MEDS: CALCIUM ACETATE 667 MG TABLET 1334 MG PO ×2 (05:20→11:40)
[2021-11-23 06:52] LABS: Basophils Percent Auto 1.2 % (0.2-1.2); Eosinophils Absolute Auto 0.1 K/mm3 (0-0.3); Eosinophils Percent Auto 2.1 % (0-4.4); Hematocrit 25.2 % (37.0-47.0); Hemoglobin 8.1 g/dL (12.0-15.0); Immature Granulocyte Absolute 0.27 K/mm3 (0.00-0.031); Immature Granulocyte Percent A 11.1 % (0-0.5); Immature Platelet Fraction Pct 10.9 % (0.9-11.2); Lymphocytes Absolute Auto 0.78 K/mm3 (0.9-3.2); Lymphocytes Percent Auto 32.1 % (18.3-44.2); Mean Corpuscular HGB Conc 32.1 g/dl (32-36); Mean Corpuscular Hemoglobin 30.5 pg (26-34); Mean Corpuscular Volume 94.7 fl (80-100); Mean Platelet Volume 11.6 fl (7.4-10.4); Monocytes Absolute Auto 0.3 K/mm3 (0.1-0.6); Monocytes Percent Auto 11.1 % (2.6-8.5); Neutrophils Percent Auto 42.4 % (45.5-73.1); Nucleated Red Blood Cells Absolute Auto 0.1 K/mm3 (0.0-0.012); Nucleated Red Blood Cells Perc 2.1 % (0.0-0.2); Platelet Count Result 46 k/mm3 (150-375); Red Blood Count 2.66 M/mm3 (4.2-5.4); Red Cell Distribution Width 16.5 % (11.5-14.5); White Blood Count 2.4 K/mm3 (4.5-10.0)
[2021-11-23 07:03] LABS: Albumin Level 3.3 g/dL (3.5-5.1); Alkaline Phosphatase 85 U/L (38-126); Anion Gap 8 mmol/L (8-16); Aspartate Amino Transferase 13 U/L (14-36); Bilirubin,Total 0.4 mg/dL (0.2-1.3); Blood Urea Nitrogen 21 mg/dL (7-17); Calcium 9.5 mg/dL (8.4-10.2); Carbon Dioxide 26 mmol/L (22-30); Chloride 98 mmol/L (98-107); Estimated CRCL calculation 10 ml/min; Estimated Glomerular Filt Rate 8; Glucose 111 mg/dL (65-110); Phosphorus 3.3 mg/dL (2.5-4.5); Potassium 4.2 mmol/L (3.4-5.0); Sodium 132 mmol/L (137-145)
[2021-11-23 07:17] LABS: Alanine Aminotransferase < 6 U/L (6-35)
[2021-11-23 07:34] LABS: Anisocytosis 2+ (NORMAL); Ovalocytes 1+ (NORMAL); Platelet Estimate Decreased (Adequate)
[2021-11-23 07:35] LABS: Schistocytes None Seen (NORMAL)
--- NOTE | 2021-11-23 07:39 | PM.IMPN ---
Progress Note: A&P Assessment and Plan (1) ESRD (end stage renal disease) on dialysis: Code(s): N18.6 - End stage renal disease; Z99.2 - Dependence on renal dialysis Status: Acute Assessment and Plan: She has a right jugular tunnel catheter for hemodialysis. She goes for dialysis on Friday Nephrology following for inpatient hemodialysis (2) Hypoxia: Code(s): R09.02 - Hypoxemia Status: Acute Assessment and Plan: CT chest noncontrast was done and confirmed the patient had mild pulmonary edema and does not appear to have a pneumonia Most likely pulmonary edema from ESRD On presentation Pneumonia was suspected and blood cultures, urine pneumococcal and Legionella antigen were sent Currently on empiric antibiotics vancomycin cefepime Her hypoxia has improved and she is now on room air. CT scan did not suggest any pneumonia Completed 7 day course of cefepime November 21, 2021 (3) Multiple myeloma: Code(s): C90.00 - Multiple myeloma not having achieved remission Status: Chronic Assessment and Plan: She is on chemotherapy with Velcade Hold Velcade at this time Discussed with Dr. Finch 11/19/2021 Bone marrow biopsy performed 11/20/2021 (4) Chronic anemia: Code(s): D64.9 - Anemia, unspecified Status: Acute Assessment and Plan: Patient has chronic anemia with multiple etiologies the form of multiple myeloma, chronic kidney disease Presented with hemoglobin of 4 on admission. She has received 4 units of PRBC Her Hemoccult was negative. Patient evaluated by GI. No plan for intervention at this time. Continue IV PPI q.12 hours Patient was also seen by Hematology and they recommend repeat bone marrow biopsy. Patient is on Procrit with dialysis Nursing staff also reported patient had some spotting suggestive of vaginal bleeding. Patient is not having. Was evaluated by manager hematology and this suspect that she has some spotting from her atrophic tissue due to low platelets. No further recommendations at this time Continue to hold aspirin Patient was discharged on Eliquis on her last hospitalization from [facility] but since then patient has been admitted at outside hospital where it appears this was discontinued as I do not see her on intermediate medication list. H&H remained stable post transfusion (5) Pancytopenia: Code(s): D61.818 - Other pancytopenia Status: Acute Assessment and Plan: Patient has chronic pancytopenia from her chemotherapy and multiple myeloma Monitor platelet count-patient received 2 units of platelets 11/16 Monitor WBC count hemoglobin and platelet count Bone marrow biopsy performed 11/20/2021 (6) Coagulopathy: Code(s): D68.9 - Coagulation defect, unspecified Status: Acute Assessment and Plan: Patient's INR is 15.3 and PTT is 115 Patient was discharged on Eliquis on her last hospitalization from [facility] but since then patient has been admitted at outside hospital and appears that Eliquis was discontinued as I do not see on intermediate medication list. She was given 2 units of FFP which has brought her INR acceptable range. She was also given 10 mg of vitamin K. INR normalized since then (7) Altered mental status: Code(s): R41.82 - Altered mental status, unspecified Status: Acute Assessment and Plan: Presented with altered mental status. This was likely delirium or metabolic encephalopathy Head CT is negative Normal ammonia Elevated TSH of 6.9. Check free T3 and free T4 ABG reviewed 7.53/42/102/34 This has since resolved (8) Sepsis: Code(s): A41.9 - Sepsis, unspecified organism Status: Acute Assessment and Plan: I reviewed the chart from [facility] and appears the patient had dialysis catheter related MSSA bacteremia and sepsis. She was discharged on cefazolin. Per patient's niece, at [facility], patient had her dialysis catheter re
[2021-11-23] MEDS: UMECLIDINIUM BROMIDE 62.5 MCG ELLIPTA 1 PUFF INHALATION (08:00)
[2021-11-23] MEDS: FLUTICASONE/SALMETEROL 115-21 MCG INHALER 1 PUFF 2 PUFF INHALATION (08:00)
[2021-11-23 08:48] LABS: Glucose Point of Care 113 mg/dl (65-105)
[2021-11-23 08:48] LABS: Glucose Point of Care 122 mg/dl (65-105)
[2021-11-23] MEDS: PANTOPRAZOLE SODIUM IV 40 MG VIAL IV PUSH (09:33)
[2021-11-23] MEDS: ISOSORBIDE MONONITRATE 60 MG TAB.ER.24H PO (09:33)
[2021-11-23] MEDS: amLODIPine BESYLATE 5 MG TABLET 10 MG PO (09:34)
[2021-11-23] MEDS: FIDAXOMICIN 200 MG TABLET PO (09:34)
[2021-11-23] MEDS: METOPROLOL SUCCINATE EXT REL 100 MG TABCR PO (09:34)
[2021-11-23] MEDS: MONTELUKAST SODIUM 10 MG TABLET PO (09:34)
[2021-11-23] MEDS: PRIMIDONE 125 MG TABLET PO (09:35)
[2021-11-23] MEDS: VENLAFAXINE HCL XR 75 MG CAP.ER.24H PO (09:35)
[2021-11-23] MEDS: AMIODARONE HCL 200 MG TABLET PO (09:35)
[2021-11-23] MEDS: SPIRONOLACTONE 50 MG TABLET PO (09:35)
[2021-11-23] MEDS: ERGOCALCIFEROL 50,000 UNIT CAPSULE 50000 UNITS PO (09:35)
[2021-11-23] MEDS: ONDANSETRON INJ 4 MG/2 ML VIAL IV PUSH (09:48)
[2021-11-23] MEDS: hydrOXYzine HCL 25 MG TABLET PO (11:40)
[2021-11-23] MEDS: ONDANSETRON HCL ODT 4 MG TABLET PO (11:40)
[2021-11-23 12:05] LABS: EDCOVIDSCREEN Negative (Negative)
[2021-11-23 12:05] LABS: Glucose Point of Care 193 mg/dl (65-105)
--- NOTE | 2021-11-23 13:52 | P.PNNP_ITS ---
Progress Note: A&P Assessment and Plan (1) End stage renal disease: Code(s): N18.6 - End stage renal disease Status: Chronic Assessment and Plan: * HD today * continue M/W/F schedule for now * follow electrolytes, volume status, and clearance (2) Hypoxia: Code(s): R09.02 - Hypoxemia Status: Acute Assessment and Plan: * resolved -- off supplemental oxygen * admission CXR suggestive of pulmonary edema * CT chest confirms this * questionable pneumonia(?) * blood cultures negative * off antibiotics * continue ultrafiltration/fluid removal with HD as tolerated by hemodynamics * follow oxygenation and respiratory status (3) Chronic anemia: Code(s): D64.9 - Anemia, unspecified Status: Acute Assessment and Plan: * quite severe on presentation * s/p 4 units of PRBC transfusion to date * presumably secondary to multiple myeloma and ESRD * complicated by coagulopathy as well * PRBC transfusion per protocol * GI/Hematology/Ob-Keno Clerk recommendations noted * no intervention planned by GI * Ob-Keno Clerk suspects spotting due to atrophic tissues with manipulation and low platelets * Hem/Onc recommending repeat bone marrow biopsy (done 11/20/21) * follow trend of H/H (4) Pancytopenia: Code(s): D61.818 - Other pancytopenia Status: Acute Assessment and Plan: * likely due to chemotherapy and multiple myeloma * PRBC/platelet/FFP transfusion PRN * follow trend of CBC (5) Hypertension: Code(s): I10 - Essential (primary) hypertension Status: Chronic Assessment and Plan: * doing better * resumed on home medications * on PRN IV medications as well (6) Multiple myeloma: Code(s): C90.00 - Multiple myeloma not having achieved remission Status: Chronic Assessment and Plan: * on treatment with chemotherapy as an outpatient * Oncology following * chemotherapy on hold currently (7) Coagulopathy: Code(s): D68.9 - Coagulation defect, unspecified Status: Acute Assessment and Plan: * profoundly elevated on admission * better s/p FFP and Vitamin K * follow trend of INR (8) Altered mental status: Code(s): R41.82 - Altered mental status, unspecified Status: Acute Assessment and Plan: * cllinically better since admission * head CT negative * ammonia + TSH okay * follow mentation (9) Insulin dependent type 2 diabetes mellitus: Code(s): E11.9 - Type 2 diabetes mellitus without complications; Z79.4 - MCFP (current) use of insulin Status: Chronic Assessment and Plan: * follow accuchecks * glycemic control Will continue to follow. Subjective Date/time seen: 11/23/21 13:52 Tolerating dialysis treatment at the time of my vist (seen on HD at 1:30PM); overall, seems to be feeling reasonably well; no apparent distress noted; no acute issues/events overnight or earlier this morning. Exam Narrative: General: WD/WN female in NAD Heart: normal S1 and S2; no rub Lungs: clear anteriorly; decreased at bases Abdomen: soft, nontender, nondistended, positive bowel sounds Extremities: no cyanosis or clubbing; trace edema Skin: no rash Objective Data Vital Signs Vital Signs: Vital Signs Temp Pulse Resp BP Pulse Ox O2 Del Method 11/23/21
--- NOTE | 2021-11-23 13:52 | PM.PNNEP ---
Progress Note: A&P Assessment and Plan (1) End stage renal disease: Code(s): N18.6 - End stage renal disease Status: Chronic Assessment and Plan: HD today continue M/W/F schedule for now follow electrolytes, volume status, and clearance (2) Hypoxia: Code(s): R09.02 - Hypoxemia Status: Acute Assessment and Plan: resolved -- off supplemental oxygen admission CXR suggestive of pulmonary edema CT chest confirms this questionable pneumonia(?) blood cultures negative off antibiotics continue ultrafiltration/fluid removal with HD as tolerated by hemodynamics follow oxygenation and respiratory status (3) Chronic anemia: Code(s): D64.9 - Anemia, unspecified Status: Acute Assessment and Plan: quite severe on presentation s/p 4 units of PRBC transfusion to date presumably secondary to multiple myeloma and ESRD complicated by coagulopathy as well PRBC transfusion per protocol GI/Hematology/Ob-Computer Installation Engineer recommendations noted no intervention planned by GI Ob-Computer Installation Engineer suspects spotting due to atrophic tissues with manipulation and low platelets Hem/Onc recommending repeat bone marrow biopsy (done 11/20/21) follow trend of H/H (4) Pancytopenia: Code(s): D61.818 - Other pancytopenia Status: Acute Assessment and Plan: likely due to chemotherapy and multiple myeloma PRBC/platelet/FFP transfusion PRN follow trend of CBC (5) Hypertension: Code(s): I10 - Essential (primary) hypertension Status: Chronic Assessment and Plan: doing better resumed on home medications on PRN IV medications as well (6) Multiple myeloma: Code(s): C90.00 - Multiple myeloma not having achieved remission Status: Chronic Assessment and Plan: on treatment with chemotherapy as an outpatient Oncology following chemotherapy on hold currently (7) Coagulopathy: Code(s): D68.9 - Coagulation defect, unspecified Status: Acute Assessment and Plan: profoundly elevated on admission better s/p FFP and Vitamin K follow trend of INR (8) Altered mental status: Code(s): R41.82 - Altered mental status, unspecified Status: Acute Assessment and Plan: cllinically better since admission head CT negative ammonia + TSH okay follow mentation (9) Insulin dependent type 2 diabetes mellitus: Code(s): E11.9 - Type 2 diabetes mellitus without complications; 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 Subjective Date/time seen: 11/23/21 13:52 Tolerating dialysis treatment at the time of my vist (seen on HD at 1:30PM); overall, seems to be feeling reasonably well; no apparent distress noted; no acute issues/events overnight or earlier this morning. Exam Narrative: General: WD/WN female in NAD Heart: normal S1 and S2; no rub Lungs: clear anteriorly; decreased at bases Abdomen: soft, nontender, nondistended, positive bowel sounds Extremities: no cyanosis or clubbing; trace edema Skin: no rash Objective Data Vital Signs Vital Signs: Vital Signs Temp Pulse Resp BP Pulse Ox O2 Del Method 11/23/21 11:25 36.5 C 97 20 186/93 H 100 11/23/21 08:00 36.4 C 87 20 152/82 H 100 11/23/21 06:28 36.5 C 89 21 H 162/86 H 100 11/23/21 02:54 36.1 C L 90 20 183/86 H 99 11/22/21 20:58 88 16 99 Autopap 11/22/21 20:55 36.1 C L 89 20 145/69 H 98 11/22/21 20:00 Room Air 11/22/21 19:54 90 11/22/21 16:39 36.4 C L 92 18 141/63 H 99 Intake/Output Intake/Output: Intake & Output 11/20/21 11/21/21 11/22/21 11/23/21 23:59 23:59 23:59 23:59 Intake Total 1969 1290 1404 640 Output Total 4400 Balance 1969 1404 640 Meds/Results Medications: Active Medications Generic Name Dose Route
[2021-11-23] MEDS: EPOETIN ALFA-EPBX 10,000 UNITS/ML VIAL 10000 UNITS IV PUSH (16:19)
[2021-11-23] MEDS: SODIUM CHLORIDE 0.9% IV 1,000 ML 999 ML IV CONT (16:19)
--- OUTSIDE RECORDS SUMMARY | 2021-11-26 11:37 | XMS_ITS ---
:1950 Author Care Team Providers Name Role Phone FLACO GALLEGOS MD Referring Provider [phone] Allergies Code Code System Name Reaction Severity Status Onset Iodinated Contrast Media ? ? Activ e ? Penicillins ? ? Active ? Medications Name Status Start Date Stop Date ? ? Accu-Chek Chelle Plus test strips Active ? Not available acetaminophen 300 mg-codeine 30 mg tablet Active ? Not available acyclovir 400 mg tablet Active ? Not avai lable atorvastatin 40 mg tablet Active ? Not av ailable azithromycin 250 mg tablet Completed ? 04/05 TAKE 1 TABLET DAILY FOR 4 DAYS benzonatate 100 mg capsule Active ? Not a vailable TAKE 1 CAPSULE THREE TIMES A DAY NEEDED FOR COUGH carvedilol 25 mg tablet Active ? Not avai lable cetirizine 10 mg tablet Active ? Not avai lable TAKE ONE TABLET DAILY chlorthalidone 25 mg tablet Active ? Not available clever choice comfort ez pen needle s [id number] 33g x 5 mm Active ? Not available misc clindamycin HCl 300 mg capsule Completed ? 0 04/05/2020 TAKE 1 CAPSULE EVERY SIX HOURS FOR 7 DAYS UNTIL ALL TAKEN clobetasol 0.05 % topical gel Active ? No t available colchicine 0.6 mg tablet Active ? Not gina ilable dexamethasone 4 mg tablet Active ? Not av ailable diclofenac 1 % topical gel Active ? Not a vailable diltiazem CD 120 mg capsule,extended release 24 hr Active ? Not available doxycycline hyclate 100 mg tablet Completed ? 04/05/2020 TAKE ONE TABLET TWICE DAILY FOR 7 DAYS. Dulera 200 mcg-5 mcg/actuation HFA aerosol inhaler Active ? Not available fenofibrate nanocrystallized 145 mg ta
--- OUTSIDE RECORDS SUMMARY | 2021-11-26 11:37 | XMS_ITS ---
:1950 Author Care Team Providers Name Role Phone FLACO GALLEGOS Primary Care Provider [phone] Allergies Code Code System Name Reaction Severity Status Onset 5640 RxNorm Ibuprofen Nausea ? Active ? Iodinated Contrast Media Hives ? Activ e ? Penicillins ? ? Active ? Versed ? ? Active ? 1191 RxNorm Aspirin Nausea ? Deactivated ? Notes: Some allergies listed in Docume nts: #[id number], #[id number], #[id number], [id number], [id number], [id number] c ould not be added to this patient's chart. Please review these documents and add th lexie allergies to the patient's chart manually as needed. Medications Name Status Start Date Stop Date ? ? Accu-Chek Chelle Plus test strips Active ? Not available acetaminophen 300 mg-codeine 30 mg tablet Active ? Not available TK 1 T PO Q 6 H PRN P CONTROL acyclovir 400 mg tablet Completed ? 04/28/19 21 albuterol sulfate 2.5 mg/3 mL (0.083 %) Active ? Not available solution for nebulization albuterol sulfate HFA 90 mcg/actuation aerosol Active ? Not available inhaler allopurinol 100 mg tablet Active ? Not av ailable 200 mg by oral route. amlodipine 10 mg tablet Unknown ? Not avai lable amlodipine 5 mg tablet Active ? Not avail able amoxicillin 500 mg capsule Unknown ? Not a vailable aspirin Active ? Not available aspirin 325 mg tablet Completed 03/24/2015 05/15/2016 Take 1 tablet every day by oral route. aspirin 81 mg tablet,delayed release Active 01/12/2020 Not available 81 mg by oral route. atenolol 100 mg tablet Unkn
--- OUTSIDE RECORDS SUMMARY | 2021-11-26 11:38 | XMS_ITS ---
:1950 Author Care Team Providers Name Role Phone CHAIM ALVAREZ MD OTHER [phone] FLACO GALLEGOS MD Primary Care Provider [phone] CHAD AMADOR MD OTHER [phone] ELTONDolly RODRÍGUEZ OTHER [phone] FELIPE KNIGHT MD (DERMATOLOGY) OTHER [phone] Allergies Code Code System Name Reaction Severity Status Onset 5640 RxNorm Ibuprofen Nausea ? Active ? Iodinated Contrast Media Hives ? Activ e ? Penicillins ? ? Active ? Versed ? ? Active ? 1191 RxNorm Aspirin Nausea ? Deactivated ? Notes: Some allergies listed in Docume nts: #[id number], #[id number], [id number], [id number], [id number] , [id number], [id number], [id number], [id number], #[id number] could not b e added to this patient's chart. Please review these documents and add these all ergies to the patient's chart manually as needed. Medications Name Status Start Date Stop Date ? ? Accu-Chek Chelle Plus test strips Active ? Not available acetaminophen 300 mg-codeine 30 mg tablet Completed ? 11/18/2019 acyclovir 400 mg tablet Active ? Not avai lable albuterol sulfate 2.5 mg/3 mL (0.083 %) Active ? Not available solution for nebulization amlodipine 10 mg tablet Unknown ? Not avai lable amoxicillin 500 mg capsule Unknown ? Not a vailable aspirin 325 mg tablet Completed ? 05/15/2016 Take 1 tablet every day by oral route. atenolol 100 mg tablet Unknown ? Not avail able atorvastatin 40 mg tablet Completed ? 2019 atorvastatin calcium 40 mg tabs Completed ? 07/29/2019 azelastine 137 mcg (0.1 %) nasal spray aerosol Unknown ? Not available
--- NOTE | 2021-11-26 11:41 | PM.DS ---
DS: Admitting Diagnosis Discharge Date 11/23/21 Admitting Diagnosis altered mental status DS: Discharge Diagnosis Discharge Diagnosis (1) ESRD (end stage renal disease) on dialysis: Code(s): N18.6 - End stage renal disease; Z99.2 - Dependence on renal dialysis Status: Acute (2) Hypoxia: Code(s): R09.02 - Hypoxemia Status: Acute (3) Multiple myeloma: Code(s): C90.00 - Multiple myeloma not having achieved remission Status: Chronic (4) Chronic anemia: Code(s): D64.9 - Anemia, unspecified Status: Acute (5) Pancytopenia: Code(s): D61.818 - Other pancytopenia Status: Acute (6) Coagulopathy: Code(s): D68.9 - Coagulation defect, unspecified Status: Acute (7) Altered mental status: Code(s): R41.82 - Altered mental status, unspecified Status: Acute (8) Sepsis: Code(s): A41.9 - Sepsis, unspecified organism Status: Acute (9) Insulin dependent type 2 diabetes mellitus: Code(s): E11.9 - Type 2 diabetes mellitus without complications; 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 on hemodialysis who was sent to ED from her infusion center due to confusion and altered mental status.? Patient is partially oriented and unable to provide any meaningful history. Patient was found to be hypoxic but oxygen saturation improved with supplemental oxygen of 2 L nasal cannula.? Head CT showed chronic changes and chest x-ray showed mild pulmonary edema with cardiomegaly.? Workup showed white count of 3.4 hemoglobin of for and platelet count of 57.? INR was 15.3.? 2 units of PRBC were ordered the ER and patient is being admitted to ICU for further evaluation management. Patient is awake, partially oriented and confused.? She does not know why she is in the hospital.? She states that she has been feeling weak and sick for last few days.? On asking review of system she answered yes to mild burning while urinating but denied any other complaints.? Patient denies fever, chest pain, shortness of breath, cough, nausea, vomiting, abdominal pain,, diarrhea, headache or constipation.? No hematochezia or melena.? No hematuria.? All other systems were reviewed and were negative Patient's niece and nephew provided rest of the history.? They state the patient was admitted at [facility] few weeks ago she was diagnosed with sepsis and C diff. she had a dialysis catheter removed while she was on antibiotics.? A temporary dialysis catheter was placed then removed again.? They were told that her blood had cleared of infection and new catheter was placed prior to discharge to nursing.? She was on IV antibiotics the group home and p.o. vancomycin.? She is on Friday dialysis and on chemotherapy by subcutaneous injection.? They are not sure whether patient missed some IV antibiotic doses group home.? They are not sure whether patient is on any anticoagulation. CT chest noncontrast was done and confirmed the patient had mild pulmonary edema and does not appear to have a pneumonia Most likely pulmonary edema from ESRD On presentation Pneumonia was suspected and? blood cultures, urine pneumococcal and Legionella antigen were sent Currently on empiric antibiotics vancomycin cefepime Her hypoxia has improved and she is now on room air.? CT scan did not suggest any pneumonia Completed 7 day course of cefepime November 21, 2021 Patient has chronic anemia with multiple etiologies the form of multiple myeloma, chronic kidney disease Presented with hemoglobin of 4 on admission. She has received 4 units of PRBC Her Hemoccult was negative.? Patient evaluated by GI.? No anders
== END 2021-11-23 16:47 | DRG 871 ==
LOC: ANHED 09:18 → ANHICU 11-16 09:41 → ANH2MED 11-19 07:46 → ANHICU 11-26 11:34 → ANHIMU 11-26 11:34
PROVIDERS: Internal Medicine; Internal Medicine Hematology & Oncology; Internal Medicine Nephrology; Physician Assistant; Radiology Diagnostic Radiology; Admitting Provider Hospitalist; Emergency Provider Emergency Medicine; PCP Internal Medicine; Visit Provider Student in an Organized Health Care Education/Training Program
PROC: 079T3ZX Drainage of Bone Marrow, Percutaneous Approach, Diagnostic (ICD-10-PCS; principal; 2021-11-20 09:00)
DX: A41.9 Sepsis, unspecified organism; D61.810 Antineoplastic chemotherapy induced pancytopenia; G93.41 Metabolic encephalopathy; N18.6 End stage renal disease; I12.0 Hypertensive chronic kidney disease with stage 5 chronic kidney disease or end stage renal disease; C90.00 Multiple myeloma not having achieved remission; D68.9 Coagulation defect, unspecified; D63.1 Anemia in chronic kidney disease; D63.0 Anemia in neoplastic disease; N95.0 Postmenopausal bleeding; T45.1X5A Adverse effect of antineoplastic and immunosuppressive drugs, initial encounter; Z20.822 Contact with and (suspected) exposure to COVID-19; I25.10 Atherosclerotic heart disease of native coronary artery without angina pectoris; R09.02 Hypoxemia; E11.22 Type 2 diabetes mellitus with diabetic chronic kidney disease; E78.5 Hyperlipidemia, unspecified; Z99.2 Dependence on renal dialysis; Z66 Do not resuscitate; Z79.4 Long term (current) use of insulin; Z79.82 Long term (current) use of aspirin; Z79.899 Other long term (current) drug therapy; Z86.14 Personal history of Methicillin resistant Staphylococcus aureus infection; Z90.710 Acquired absence of both cervix and uterus; Z95.5 Presence of coronary angioplasty implant and graft
CPT/HCPCS: 36415; 36430; 36600; 38222; 51702; 70450; 71045; 71250; 74176; 80053; 80069; 80202; 81001; 82140; 82274; 82565; 82607; 82746; 82805; 82948; 83010; 83036; 83605; 83615; 83735; 83880; 84100; 84145; 84439; 84443; 84481; 85014; 85018; 85025; 85027; 85055; 85384; 85610; 85730; 86140; 86706; 86850; 86880; 86900; 86901; 86920; 87040; 87340; 87426; 87449; 87899; 88184; 88185; 88305; 88311; 88313; 88360; 88364; 88365; 93005; 94640; 96361; 96365; 96366; 96375; 97110; 97162; 97165; 97530; 97535; 99213; 99285; P9036; A9270; C9113; C9803; G0257; G0463; J0360; J0692; J1642; J1644; J1815; J1940; J2405; J3370; J3430; J7030; J7050; J7120; P9016; P9017; P9034; Q5105

== ENCOUNTER 2021-12-16 11:10 | HOS | payer OTHER, MEDICARE, MEDICAID, SELFPAY ==
[2021-12-16] VITALS (14 sets, daily range): BP systolic 153–198; BP diastolic 66–90; PULSE 70–78; RESP 4–16; TEMP 36.1–36.6; O2SAT 93–100; BMI 34.8
--- NOTE | ~2021-12-16 | CT_ITS ---
EXAMINATION: CT cervical spine wo con DATE: 12/16/2021 12:27 INDICATION: Fall. TECHNIQUE: Computed tomography (CT) of the cervical spine was performed without intravenous contrast. Automated exposure control and iterative reconstruction technique were employed. Exam dose: 480.09 mGy-cm total exam DLP. COMPARISON: 07/18/2021 cervical spine FINDINGS: There is fusion of the anterior and posterior elements at C5-6, likely congenital. There is prominent degenerative change at the remaining apophyseal joints bilaterally. There is 2 mm anterolisthesis at C4-5. There is severe degenerative disc disease at C6-7. C1 and C2 are normally aligned and the odontoid process is intact. No fracture or dislocation or lock ed facet or prevertebral soft tissue swelling.. 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 Reviewed, dictated and finalized at [facility]. 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
--- NOTE | ~2021-12-16 | CT_ITS ---
EXAMINATION: CT brain wo con DATE: 12/16/2021 11:24 INDICATION: Transient alteration of awareness. Seizure-like activity. Unwitnessed fall. TECHNIQUE: Computed tomography (CT) of the head was performed without intravenous contrast. The mA wa s adjusted according to patient size. Iterative reconstruction technique was employed. Exam dose: 60 5.33 mGy-cm total exam DLP. COMPARISON: 11/15/2021 CT brain FINDINGS: Vertebral and carotid siphon internal carotid artery calcifications. There is nonspecific d iminished attenuation of the cerebral white matter, likely due to chronic small vessel ischemic velez es. No intracranial mass lesion or hemorrhage or cerebrovascular accident is detected. No midline shift o r mass effect. Moderate cerebral and cerebellar volume loss. No subdural or epidural hematoma. No fracture or bone destruction of the cranial vault. The mastoid air cells are normally developed an d aerated. There is minimal left ethmoid air cell opacification and mild mucoperiosteal thickening of the left f rontal sinus. IMPRESSION: Cerebral atherosclerosis and chronic small vessel ischemic changes of the cerebral white matter Mild left ethmoid and frontal left sinus soft tissue thickening Reviewed, dictated and finalized at [facility]. Reviewed, dictated and finalized at location [facility]. 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
--- NOTE | 2021-12-16 11:23 | ED.NEUROSD ---
HPI - Neuro Symptoms/Deficit General Chief Complaint: Altered Mental Status Stated Complaint: unwitnessed fall, seizure like activity Time Seen by Provider: 12/16/21 11:23 Source: family and EMS Mode of arrival: EMS History of Present Illness HPI Narrative: 71 years old, fdc found on the floor seizing, unknown duration, unwitnessed fall, was a scheduled for hospice today. History of end-stage renal disorder, multiple myeloma, last dialysis was 5 days ago, the family decided no more dialysis and comfort measures only at this time. Including no blood work-up, comfort measures only. Related Data Home Medications Medication Instructions Recorded Confirmed cholecalciferol (vitamin D3) 1,250 50,000 unit PO WEEKLY 02/12/19 11/15/21 mcg (50,000 unit) capsule cyanocobalamin (vitamin B-12) 1,000 mcg subcut MONTHLY 02/12/19 11/15/21 1,000 mcg/mL injection kit isosorbide mononitrate 30 mg 60 mg PO DAILY 02/12/19 11/15/21 tablet,extended release 24 hr albuterol sulfate 0.63 mg/3 mL 0.63 mg inhalation Q6H PRN wheezes 10/18/20 11/15/21 solution for nebulization icosapent ethyl 1 gram capsule 2 g PO TID 10/18/20 11/15/21 (Vascepa) montelukast 10 mg tablet 10 mg PO DAILY PRN Allergy Symptoms 04/15/21 11/15/21 (Singulair) fenofibrate 54 mg tablet 54 mg PO DAILY 04/24/21 11/15/21 dexamethasone 20 mg tablet 40 mg PO WEEKLY 08/22/21 11/15/21 ondansetron HCl 8 mg tablet 8 mg PO Q8H PRN Nausea 08/22/21 11/15/21 acetaminophen 325 mg tablet 650 mg PO Q8H PRN Pain (Scale 10/09/21 11/15/21 Score 1-3) primidone 50 mg tablet 150 mg PO BID 10/09/21 11/15/21 amiodarone 200 mg tablet 200 mg PO DAILY 11/15/21 11/15/21 amlodipine 5 mg tablet (Norvasc) 10 mg PO QAM 11/15/21 11/15/21 aspirin 81 mg chewable tablet 81 mg PO DAILY 11/15/21 11/15/21 atorvastatin 40 mg tablet 40 mg PO HS 11/15/21 11/15/21 calcium acetate(phosphat bind) 667 1,334 mg PO AC 11/15/21 11/15/21 mg capsule cyclobenzaprine 10 mg tablet 10 mg PO Q12H PRN Muscle Spasm 11/15/21 11/15/21 furosemide 80 mg tablet 80 mg PO QTUTHSA 11/15/21 11/15/21 hydralazine 100 mg tablet 100 mg PO Q8H 11/15/21 11/15/21 hydrocodone 5 mg-acetaminophen 325 1 tablet PO Q6H PRN Pain 11/15/21 11/15/21 mg tablet lorazepam 1 mg tablet 1 mg PO HS 11/15/21 11/15/21 melatonin 5 mg tablet 5 mg PO HS PRN Insomnia 11/15/21 11/15/21 metoprolol succinate 100 mg 100 mg PO BID 11/15/21 11/15/21 tablet,extended release 24 hr midodrine 5 mg tablet 5 mg PO DAILY PRN Hypotension 11/15/21 11/15/21 mometasone-formoterol HFA 100 2 puff inhalation Q12H 11/15/21 11/15/21 mcg-5 mcg/actuation aerosol inhaler omeprazole 20 mg capsule,delayed 20 mg PO DAILY 11/15/21 11/15/21 release polyethylene glycol 3350 17 gram 17 g PO DAILY PRN Constipation 11/15/21 11/15/21 oral powder packet (Miralax) spironolactone 50 mg tablet 50 mg PO BID 11/15/21 11/15/21 tiotropium bromide 1.25 2 puff inhalation BID 11/15/21 11/15/21 mcg/actuation mist for inhalation venlafaxine 75 mg capsule,extended 75 mg PO DAILY 11/15/21 11/15/21 release 24 hr Allergies Allergy/AdvReac Type Severity Reaction Status Date / Time celecoxib Allergy Intermediate TACHYCARDIA Verified 12/16/21 12:16 iohexol Allergy Intermediate Hives/Red Verified 12/16/21 12:16 [From contrast - CT, X-RAY] face ibuprofen Allergy Unknown Other Verified 12/16/21 12:16 iodine Allergy Unknown Other Verified 12/16/21 12:16 midazolam Allergy Unknown AMNESIA Verified 12/16/21 12:16 AFTER SURGERY Penicillins Allergy Unknown Other Verified 12/16/21 12:16 Review of Systems Review of Systems: ROS unobtainable: Yes unobtainable due to medical condition and unobtainable due to mental status PMFSH Past Medical History Medical History Acute neck pain Cervical spondylosis with radiculopathy Chronic anemia Chronic kidney disease, stage 3 Coronary artery disease Degenerative disc disease Dyslipid
--- NOTE | 2021-12-16 11:42 | PC.NURSE ---
IO TO L LEG NEAR KNEE JOINT THAT WAS ESTABLISHED BY EMS WAS REMOVED D/T SUSPECTED IMPROPER PLACEMENT.
[2021-12-16] MEDS: diazePAM INJ (*CRX) 10 MG/2 ML SYRINGE IM (11:56)
--- NOTE | 2021-12-16 12:00 | PC.NURSE ---
PT WITH NOTED SZ ACTIVITY. TONIC CLONIC WITH EYES DEVIATING TO L. LASTED APPROX 3 MINUTES. IM VALIUM GIVEN PER ORDER.
[2021-12-16] MEDS: levETIRAcetam 1000MG/NACL100ML 1,000 MG/100 ML BAG 400 MG IVPB (13:43)
--- NOTE | 2021-12-16 15:00 | PM.IMHP ---
H&P: HPI History of Present Illness Date/Time: 12/16/21 15:00 Chief Complaint: Unwitnessed fall, seizure activity. Narrative: This is a 71-year-old female with end-stage renal disease on hemodialysis, multiple myeloma, hypertension, dyslipidemia, coronary artery disease, paroxysmal atrial fibrillation flutter, type 2 diabetes mellitus, and obstructive sleep apnea who presented to the emergency department via EMS from her assisted living facility for evaluation unwitnessed fall in seizure activity. She is postictal at the time my evaluation and does mutter a few words however she is not able to provide a history. As such a majority of the following history is obtained via a review of her electronic medical records as well as discussions with her niece who is at bedside. She last had dialysis 5 days ago on and at that time she opted for no further treatment and comfort measures were initiated. She met with a local hospice group yesterday and she was to go home tomorrow on hospice. This morning she had an unwitnessed fall in her room and staff found her on the ground. She had no obvious injury and she was helped up. Several hours thereafter she had two episodes of seizure-like activity and she was brought into the emergency department where she was given IM diazepam and 1 gram of levetiracetam. Brain CT did not show any acute findings. After discussions with the family, it was decided to admit the patient to the hospital for comfort measures. Hospice has also been consulted for supportive care. At the time my evaluation the patient will open her eyes to voice and she attempts to say few words, but her main complaint is of pain though she cannot further specify. Review of Systems Review of Systems: Unable to be obtained accurately given current clinical condition. [facility] Past Medical History Medical History (Updated 12/16/21 @ 21:41 by Ramya Raymond PA-C) Cervical spondylosis with radiculopathy Chronic anemia Coronary artery disease Degenerative disc disease Dyslipidemia End-stage renal disease on hemodialysis Gastric polyp Gastroesophageal reflux disease Gout History of MRSA infection Hypertension Insulin dependent type 2 diabetes mellitus Lichen sclerosus Macular degeneration Mixed stress and urge urinary incontinence Multiple myeloma Obstructive sleep apnea on CPAP Osteoarthritis Paroxysmal atrial fibrillation Right bundle branch block Surgical History Surgical History History of arthroscopy of left knee History of bilateral knee arthroplasty History of bladder surgery Status post sling and InterStim. History of cardiac catheterization History of cataract extraction History of cholecystectomy History of coronary artery stent placement History of spinal surgery x4 Status post bilateral foot surgery Bone spur removal. Family History Family History Mother Hypertension, Onset Age: 86 Family history of elevated blood lipids, Onset Age: 86 Patient's mother is Grandparent Cerebrovascular accident, Onset Age: 76 Diabetes mellitus, Onset Age: 84 Father Family history of coronary artery disease, Onset Age: 49 Patient's father is Social History Social History (Updated 12/16/21 @ 21:32 by Ramya Raymond PA-C) Social History: Surrogate decision maker: Kristine Tolliver, (sister) or Stella Gerber (niece). Code status: Do not resuscitate. 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 Spiritual care concerns: Yes (Alevism) Meds Home Medications and Allergies Home Medications Medication Instructions Recorded Confirmed Type cholecalciferol (vitamin D3) 1,250 5
[2021-12-16] MEDS: MORPHINE SULFATE (*CRX) 4 MG/ML INJ IV PUSH (15:24)
--- OUTSIDE RECORDS SUMMARY | 2021-12-16 17:39 | XMS_ITS ---
:1950 Author Care Team Providers Name Role Phone FLACO GALLEGOS MD Referring Provider [phone] Allergies Code Code System Name Reaction Severity [...] clever choice comfort ez pen needle s [id number] 33g x 5 mm Active ? Not [...]
--- OUTSIDE RECORDS SUMMARY | 2021-12-16 17:39 | XMS_ITS ---
:1950 Author Care Team Providers Name Role Phone FLACO GALLEGOS Primary Care Provider [phone] Allergies Code Code System Name Reaction Severity Status Onset 5640 RxNorm Ibuprofen Nausea ? Active ? Iodinated Contrast Media Hives ? Activ e ? Penicillins ? ? Active ? Versed ? ? Active ? 1191 RxNorm Aspirin Nausea ? Deactivated ? Notes: Some allergies listed in Docume nts: #[id number], #[id number], #[id number], #[id number], #[id number], #[id number], #[id number], #[id number] c ould not be added to this [...]
--- OUTSIDE RECORDS SUMMARY | 2021-12-16 17:40 | XMS_ITS ---
:1950 Author Care Team Providers Name Role Phone FLACO GALLEGOS MD Primary Care Provider [phone] Allergies Code Code System Name Reaction Severity Status Onset Penicillins Other ? Active ? Versed Other ? Active ? Notes: Patient cannot take any arthrit is medications, causes heart to race Medications Name Status Start Date Stop Date ? ? Accu-Chek Chelle Plus test strips Active ? Not available acetaminophen 300 mg-codeine 30 mg tablet Completed ? 03/07/2020 acyclovir 400 mg tablet Completed ? 03/07/19 21 albuterol sulfate 2.5 mg/3 mL (0.083 %) solution for Active ? Not available nebulization amlodipine 10 mg tablet Unknown ? Not avai lable atenolol 100 mg tablet Unknown ? Not avail able atorvastatin 40 mg tablet Completed ? 2019 atorvastatin calcium 40 mg tabs Active ? Not available azithromycin 250 mg tablet Completed ? 09/06 benzonatate 100 mg capsule Completed ? 09/06 TAKE 1 CAPSULE THREE TIMES A DAY NEEDED FOR COUGH carvedilol 25 mg tabs Completed ? 03/07/2020 carvedilol 12.5 mg tablet Active ? Not av ailable carvedilol 25 mg tablet Completed ? 09/07/19 20 carvedilol 6.25 mg tablet Completed ? 2016 cetirizine 10 mg tablet Completed ? 03/07/19 21 TAKE ONE TABLET DAILY chlorthalidone 25 mg tablet Active ? Not available ciprofloxacin 500 mg tablet Completed ? 06/10 citalopram 10 mg tablet Completed ? 07/01/19 19 citalopram 20 mg tablet Completed ? 07/01/19 19 citalopram 40 mg tablet Unknown ? Not avai lable clever choice comfort ez pen needle s [id number] 33g x 5 mm Active ? Not available
--- OUTSIDE RECORDS SUMMARY | 2021-12-16 17:41 | XMS_ITS ---
:1950 Author Care Team Providers Name Role Phone FLACO GALLEGOS MD Referring Provider [phone] Allergies Code Code System Name Reaction Severity [...] clever choice comfort ez pen needle s [id number] 33g x 5 mm Active ? Not [...]
--- OUTSIDE RECORDS SUMMARY | 2021-12-16 17:41 | XMS_ITS ---
:1950 Author Care Team Providers Name Role Phone CHAIM ALVAREZ MD OTHER [phone] FLACO GALLEGOS MD Primary Care Provider [phone] CHAD AMADOR MD OTHER [phone] ELTONDolly RODRÍGUEZ OTHER [phone] FELIPE KNIGHT MD (DERMATOLOGY) OTHER [phone] Allergies Code Code System Name Reaction Severity Status Onset 5640 RxNorm Ibuprofen Nausea ? Active ? Iodinated Contrast Media Hives ? Activ e ? Penicillins ? ? Active ? Versed ? ? Active ? 1191 RxNorm Aspirin Nausea ? Deactivated ? Notes: Some allergies listed in Docume nts: #[id number], #[id number], #[id number], #[id number], #[id number], #[id number], #[id number] , #[id number], #[id number], #[id number], #[id number], #[id number], #[id number], #[id number] could not b e added to this [...]
--- OUTSIDE RECORDS SUMMARY | 2021-12-16 17:41 | XMS_ITS ---
:1950 Author Care Team Providers Name Role Phone FLACO GALLEGOS MD Primary Care Provider [phone] Allergies Code Code System Name Reaction Severity [...] clever choice comfort ez pen needle s [id number] 33g x 5 mm Active ? Not available
--- OUTSIDE RECORDS SUMMARY | 2021-12-16 17:41 | XMS_ITS ---
:1950 Author Care Team Providers Name Role Phone FLACO GALLEGOS Primary Care Provider [phone] Allergies Code Code System Name Reaction Severity Status Onset 5640 RxNorm Ibuprofen Nausea ? Active ? Iodinated Contrast Media Hives ? Activ e ? Penicillins ? ? Active ? Versed ? ? Active ? 1191 RxNorm Aspirin Nausea ? Deactivated ? Notes: Some allergies listed in Docume nts: #[id number], #[id number], #[id number], #[id number], #[id number], #[id number], #[id number], #[id number] c ould not be added to this [...]
--- OUTSIDE RECORDS SUMMARY | 2021-12-16 17:42 | XMS_ITS ---
:1950 Author Care Team Providers Name Role Phone CHAIM ALVAREZ MD OTHER [phone] FLACO GALLEGOS MD Primary Care Provider [phone] CHAD AMADOR MD OTHER [phone] ELTONDolly RODRÍGUEZ OTHER [phone] FELIPE KNIGHT MD (DERMATOLOGY) OTHER [phone] Allergies Code Code System Name Reaction Severity Status Onset 5640 RxNorm Ibuprofen Nausea ? Active ? Iodinated Contrast Media Hives ? Activ e ? Penicillins ? ? Active ? Versed ? ? Active ? 1191 RxNorm Aspirin Nausea ? Deactivated ? Notes: Some allergies listed in Docume nts: #[id number], #[id number], #[id number], #[id number], #[id number], #[id number], #[id number] , #[id number], #[id number], #[id number], #[id number], #[id number], #[id number], #[id number] could not b e added to this [...]
[2021-12-16] MEDS: MORPHINE SULFATE (*CRX) 2 MG/ML INJ IV PUSH ×3 (17:46→21:58)
[2021-12-16] MEDS: diazePAM INJ (*CRX) 10 MG/2 ML SYRINGE 5 MG IV PUSH ×2 (17:48→20:52)
--- NOTE | 2021-12-16 18:21 | ADMGEN ---
This patient, Jaimie Nix, was admitted to 2 Medical Room 260-01. Patient/family oriented to hospital policies and general routines including ID bracelet, bed and alarms, visiting hours, pain management, procedures, bathroom and other care routines, personal items, smoking policy, room service/diet, and visiting hours. Information on how to activate the Rapid Response Team has been discussed. Patient/Family are encouraged to report perceived risks to care and to ask questions if they do not understand what they are told or what they should do.
[2021-12-16] MEDS: levETIRAcetam 500MG/NACL 100ML 500 MG/100 ML BAG 400 MG IVPB (20:06)
[2021-12-17] MEDS: MORPHINE SULFATE (*CRX) 2 MG/ML INJ IV PUSH ×6 (00:01→13:50)
[2021-12-17 08:00] VITALS: O2SAT 95
[2021-12-17] MEDS: levETIRAcetam 500MG/NACL 100ML 500 MG/100 ML BAG 400 MG IVPB ×2 (08:05→21:50)
[2021-12-17] MEDS: MORPHINE SULFATE INJ (*CRX) 50 MG in SODIUM CHLORIDE 0.9% IV 95 ML 6 MG IV CONT (14:10)
[2021-12-17 14:27] VITALS: BP 199/75; PULSE 103; RESP 16; TEMP 36.5; O2SAT 99
--- NOTE | 2021-12-17 19:27 | PC.NURSE ---
12/17/21 1300 Family complains of pt moaning in pain and requests morphine drip to be started. Hospice also suggested starting morphine drip for comfort care. Called about complaints and he ordered morphine drip to be started.
[2021-12-17 20:00] VITALS: O2SAT 99
[2021-12-17 22:49] VITALS: BP 132/65; PULSE 113; RESP 20; TEMP 36.1; O2SAT 91
[2021-12-18] MEDS: ATROPINE SULFATE 1% OPHTH SOLN 5 ML BOTTLE SUBLINGUAL ×2 (03:22→07:52)
[2021-12-18] MEDS: MORPHINE SULFATE INJ (*CRX) 50 MG in SODIUM CHLORIDE 0.9% IV 95 ML 6 MG IV CONT (06:10)
--- NOTE | 2021-12-18 07:55 | PM.IMPN ---
Progress Note: A&P Assessment and Plan (1) Unwitnessed fall: Code(s): R29.6 - Repeated falls Status: Acute (2) Seizure: Code(s): R56.9 - Unspecified convulsions Status: Acute (3) Encephalopathy: Code(s): G93.40 - Encephalopathy, unspecified Status: Acute (4) End of life care: Code(s): Z51.5 - Encounter for palliative care Status: Acute Plan patient is comfort measures appears comfortable at this time Subjective Date/time seen: 12/17/21 07:55 comfort measures Exam Narrative: General: Acute/chronically ill-appearing female supine in bed. Weight: 100.9 kilograms. BMI: 34.8. HEENT: Pupils are reactive. Extraocular motions appear to be intact. Sclerae anicteric. Conjunctiva mildly injected. Oral mucosa is tacky. Oropharynx not visualized. Neck: Supple. No midline vertebral tenderness. Respiratory: Respirations are nonlabored. Lung sounds are diminished due to poor effort. Cardiovascular: Regular rate and rhythm with S1-S2. Gastrointestinal: Abdomen is soft, obese, and nontender with positive bowel sounds. Skin: Warm and dry with generalized pallor. There is bruising over the left shoulder. Extremities: No cyanosis or clubbing. Bilateral lower extremity edema. Extremities are warm and perfused. Neurological: Somnolent but she will open her eyes to name and she attempts to say few words. Cranial nerves 2-12 are grossly intact. Speech is slow and she speaks only a few words. No facial asymmetry. No gross focal deficits to casual conversation. Psychiatric: Somnolent and postictal but seems to be coming around. Objective Data Vital Signs Vital Signs: Vital Signs - 24 hr 12/17/21 14:27 12/17/21 08:00 12/17/21 20:00 Temperature 97.7 F Pulse Rate 103 H Respiratory Rate 16 Blood Pressure 199/75 H Pulse Oximetry 99 95 99 Oxygen Delivery Nasal Cannula Nasal Cannula Oxygen Flow Rate 2 2 12/17/21 22:49 Temperature 97.0 F L Pulse Rate 113 H Respiratory Rate 20 Blood Pressure 132/65 Pulse Oximetry 91 Oxygen Delivery Oxygen Flow Rate Intake/Output Intake/Output: Intake & Output 12/16/21 12/16/21 12/17/21 12/18/21 00:59 23:59 23:59 23:59 Intake Total 200 100 Balance 200 100 Meds/Results Medications: Active Medications Generic Name Dose Route Start Last Admin Trade Name Freq PRN Reason Stop Dose Admin Acetaminophen 650 mg 12/16/21 15:33 Acetaminophen 650 Mg Suppository RECTAL Q6H PRN Mild Pain (1-3) or Fever Atropine Sulfate 1 - 2 drop 12/16/21 15:33 12/18/21 07:52 Atropine Sulfate 1% Ophth Soln 5 Ml Bottle SUBLINGUAL 2 drop Q4H PRN Administration Secretions Bisacodyl 10 mg 12/16/21 15:38 Bisacodyl 10 Mg Suppository RECTAL QAM PRN Constipation Diazepam 10 mg 12/17/21 11:52 Diazepam Inj (*Crx) 10 Mg/2 Ml Syringe IV PUSH Q3H PRN seizure or restlessness/anxiet Levetiracetam 500 mg in 100 mls @ 400 mls/hr 12/16/21 21:00 12/17/21 22:05 Keppra Iv IVPB Infused Q12HR JERROD Infusion Morphine Sulfate 50 mg/ Sodium 100 mls @ 6 mls/hr 12/17/21 13:40 12/18/21 06:10 Chloride IV CONT 3 mg/hr .[id number] JERROD 6 mls/hr Administration 3 MG/HR Morphine Sulfate 2 mg 12/17/21 13:46 12/17/21 13:50 Morphine Sulfate (*Crx) 2 Mg/Ml Inj IV PUSH 2 mg Q2HR PRN Administration Pain Rated 7-10 Ondansetron HCl 4 mg 12/16/21 15:37 Ondansetron Inj 4 Mg/2 Ml Vial IV PUSH Q6H PRN Nausea And Vomiting Radiology Results: ITS Impressions Head CT 12/16/21 11:46 IMPRESSION: Cerebral atherosclerosis and chronic small vessel ischemic changes of the cerebral white matter Mild left ethmoid and frontal left sinus soft tissue thickening Cervical Spine CT 12/16/21 12:31 IMPRESSION: 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
--- NOTE | 2021-12-18 08:16 | PC.NURSE ---
Approximately 0810 IMelvin, the nurse taking care of Jaimie Nix was notified by colleague David Ha that the patient may no longer be breathing. Upon arrival to the room, it was observed that the patient no longer had a pulse and was no longer having respirations. I alerted the charge nurse, Stephanie Wu of the event and she came to the room and verified with vital signs that the patient had .
--- NOTE | 2021-12-27 07:09 | P.DN_ITS ---
Discharge Summary Date and Time Date of : 12/18/21 Time of : 08:15 Provider Pronounced By: Stephanie Wu RN Probable Cause of Probable Cause of : fall, seizure, esrd Summary Hospital Course: This is a 71-year-old female with end-stage renal disease on hemodialysis, multiple myeloma, hypertension, dyslipidemia, coronary artery disease, paroxysmal atrial fibrillation flutter, type 2 diabetes mellitus, and obstructive sleep apnea who presented to the emergency department via EMS from her assisted living facility for evaluation unwitnessed fall in seizure activity. She last had dialysis 5 days ago on and at that time she opted for no further treatment and comfort measures were initiated.? She met with a local hospice group yesterday wants to be on hospice. This morning she had an unwitnessed fall in her room and staff found her on the ground. Patient was admitted given comfort medications and subsequently . Additional Data Confirmation of as documented by pronouncing clinician: Pupillary Reflex, Palpable Pulses, Response to Stimuli, Heart Tones and Breath Sounds Name of Provider Notified: Dr. Cornell Time Provider Notified: 08:34 Provider Requests Autopsy: No Family Requests Autopsy: No Pre Sales Systems Engineer Notified: Yes Date [facility] Notified of : 12/18/21 Time [facility] Notified of : 08:53
== END 2021-12-18 08:15 | disposition expired | DRG 951 ==
LOC: ANHED 11:40 → ANH2MED 17:38
PROVIDERS: Admitting Provider Internal Medicine; Emergency Provider Emergency Medicine; PCP Internal Medicine; Visit Provider Chiropractor
DX: Z51.5 Encounter for palliative care (principal); G93.41 Metabolic encephalopathy; N18.6 End stage renal disease; C90.00 Multiple myeloma not having achieved remission; I12.0 Hypertensive chronic kidney disease with stage 5 chronic kidney disease or end stage renal disease; I48.92 Unspecified atrial flutter; R56.9 Unspecified convulsions; E11.22 Type 2 diabetes mellitus with diabetic chronic kidney disease; Z99.2 Dependence on renal dialysis; E78.5 Hyperlipidemia, unspecified; I25.10 Atherosclerotic heart disease of native coronary artery without angina pectoris; G47.33 Obstructive sleep apnea (adult) (pediatric); I48.0 Paroxysmal atrial fibrillation; W19.XXXA Unspecified fall, initial encounter; R29.6 Repeated falls; Z95.5 Presence of coronary angioplasty implant and graft; Z98.49 Cataract extraction status, unspecified eye
CPT/HCPCS: 70450; 72125; A9270; J1953; J2270; J3360